=== PATIENT | male | born 1970 | race Caucasian/White ===

== ENCOUNTER → 2017-10-15 | Outpatient (CLI) | payer OTHER ==
[2017-10-15 16:38] LABS: HCT 42.4 % (39.0-53.0); HGB 14.9 gm/dL (13.0-17.5); MCHC 35.1 g/dL (31.0-37.0); MCV 96.9 fL (80.0-100.0); Mean Platelet Volume 7.2; Platelet Count 144 k/uL (150-450); RBC 4.38 m/uL (4.30-5.90); RDW 13.5 % (11.5-15.5)
[2017-10-15 16:47] LABS: ALT 45 U/L (21-72); AST 38 U/L (17-59); Albumin 4.2 g/dL (3.5-5.0); Alkaline Phosphatase 53 U/L (38-126); Anion Gap 8 mmol/L; Blood Urea Nitrogen 17 mg/dL (9-20); Carbon Dioxide 27 mmol/L (22-30); Chloride 106 mmol/L (98-107); Glucose 112 mg/dL (74-99); Potassium 4.2 mmol/L (3.5-5.1); Sodium 141 mmol/L (137-145); Total Bilirubin 0.8 mg/dL (0.2-1.3); Total Protein 7.2 g/dL (6.3-8.2)
[2017-10-16 02:46] LABS: Hemoglobin A1C 7.4 % (4.0-6.0)
== END | disposition home or self-care (01) ==
LOC: LABWHC1 15:38
PROVIDERS: ATTEND Thoracic Surgery (Cardiothoracic Vascular Surgery)
DX: E13.621 Other specified diabetes mellitus with foot ulcer (principal)
CPT/HCPCS: 36415; 80053; 83036; 84134; 85027

== ENCOUNTER → 2018-01-07 | Outpatient (CLI) | payer OTHER ==
--- NOTE | 2018-01-13 10:17 | P.ARTDOP ---
Arterial Doppler LOWER EXTREMITY ARTERIAL DOPPLER: DATE OF SERVICE: 01/07/2018 Reason for study: Left foot ulcer. Doppler waveforms: Multiphasic bilaterally throughout. Pulse volume recording: Blunted bilaterally throughout. Pressure gradients: None except at the left foot. Ankle-brachial indices: Greater than 1 bilaterally. Toe pressures: 108 on the right, 76 on the left Impression: Normal arterial Doppler except of the left foot. Localized occlusive process is unlikely. Could be vasospastic phenomenon. Clinical correlation recommended..
== END | disposition home or self-care (01) ==
LOC: RADUSWWP 13:38
PROVIDERS: ATTEND Thoracic Surgery (Cardiothoracic Vascular Surgery)
DX: R93.7 Abnormal findings on diagnostic imaging of other parts of musculoskeletal system (principal)
CPT/HCPCS: 93923

== ENCOUNTER → 2021-11-06 | Outpatient (CLI) | payer OTHER ==
[2021-11-06 22:26] LABS: Basophils # (A) 0.07 X 10*3/uL (0.00-0.10); Eosinophils # (A) 0.08 X 10*3/uL (0.04-0.35); Eosinophils % (A) 1.1 %; HCT 45.9 % (39.6-50.0); HGB 15.1 g/dL (13.0-17.0); Immature Grans, Automated 0.4 %; Lymphocytes # (A) 0.84 X 10*3/uL (0.90-5.00); Lymphocytes % (A) 11.8 %; MCH 33.3 pg (27.0-32.0); MCHC 32.9 g/dL (32.0-37.0); MCV 101.1 fL (80.0-97.0); Mean Platelet Volume 10.1 fL (9.5-12.2); Monocytes # (A) 0.71 X 10*3/uL (0.20-1.00); NRBC Per 100 WBC 0 /100 WBCS (0.0-0.0); Neutrophils # (A) 5.36 X 10*3/uL (1.80-7.70); Neutrophils % (A) 75.7 %; Platelet Count 151 X 10*3/uL (140-440); RBC 4.54 X 10*6/uL (4.40-5.60); RDW 13.8 % (11.5-14.5); WBC 7.09 X 10*3/uL (4.50-10.00)
== END | disposition home or self-care (01) ==
LOC: LABPAT 15:40
PROVIDERS: ATTEND Surgery
DX: Z01.812 Encounter for preprocedural laboratory examination (principal); K43.2 Incisional hernia without obstruction or gangrene
CPT/HCPCS: 85025; 93005

== ENCOUNTER 2021-11-14 07:37 | Day surgery (SDC) | payer OTHER ==
[2021-11-09 15:10] VITALS: BMI 32.5
[~2021-11-14 07:37] MED LIST: ACETAMINOPHEN TAB 500 MG TAB PO PRN; DEXAMETHASONE SOD PHOSPHATE 4 MG/ML 1 ML VIAL IV ONE; HEPARIN SODIUM,PORCINE/PF 5,000 UNIT/0.5 ML SYRINGE SQ PRN; HYDROmorphone 0.5 MG/0.5 ML SYRINGE IVP PRN; LACTATED RINGERS 1,000 ML IV SCH; ONDANSETRON 4 MG/2 ML VIAL IVP ONE
[2021-11-14 08:26] VITALS: TEMP 97.7
[2021-11-14] MEDS ORDERED: MIDAZOLAM 2 MG/2 ML VIAL IVP ONE ×3 (08:52→09:08)
[2021-11-14] MEDS ORDERED: ONDANSETRON 4 MG/2 ML VIAL IVP ONE (08:59)
[2021-11-14 09:01] LABS: Glucose,Whole Blood 120 mg/dL (70-110)
[2021-11-14] MEDS ORDERED: fentaNYL (PF) 50 MCG/ML 2 ML AMP IVP ONE (09:08)
--- NOTE | 2021-11-14 09:20 | P.ANPRN ---
Procedure Note - Anesthesia - Nerve Block Performed Bilateral Erector Spinae Single Time Out Performed: Yes Date of Procedure: 11/14/21 Procedure Start Time: : Procedure Stop Time: : Location of Patient: PreOp Indication: Requested by Surgeon Specifically requested for management of pain by DrJenniffer: Juan M Coy Sedation Type: Sedate with meaningful contact maintained Preparation: Sterile Prep Position: Prone Needle Types: Pajunk Needle Gauge: 21 Ultrasound used to visualize needle placement: Yes Ultrasound used to observe medication spread: Yes Injectate: 0.5% Ropivacaine (see comment for volume) (15 ml +lidocain 1 % with epi 10 ml per side) Blood Aspirated: No Pain Paresthesia on Injection Noted: No Resistance on Injection: Normal Image Stored and Saved: Yes Events: Uneventful and Well Tolerated
[2021-11-14 09:26] VITALS: RESP 18
--- NOTE | 2021-11-14 09:33 | P.GSHP ---
History of Present Illness H&P Date: 11/14/21 Chief Complaint: Ventral hernia This a 50-year-old male assaulted ventral hernia located above the umbilicus. He presents today for laparoscopic robotic-assisted repair. Past Medical History Past Medical History: Diabetes Mellitus, GERD/Reflux, Hypertension Additional Past Medical History / Comment(s): RENAL DECLINE. NEUROPATHY History of Any Multi-Drug Resistant Organisms: None Reported Past Surgical History: No Surgical Hx Reported Additional Past Anesthesia/Blood Transfusion Reaction / Comment(s): PT HAS NEVER RECEIVED ANESTHESIA. Smoking Status: Current every day smoker - Past Family History Mother Family Medical History: Diabetes Mellitus Father Family Medical History: Cancer Medications and Allergies Home Medications Medication Instructions Recorded Confirmed Type Famotidine 20 mg PO BID 10/15/17 11/09/21 History metFORMIN HCL [Glucophage] 1,000 mg PO BID 12/30/17 11/09/21 History Empagliflozin [Jardiance] 25 mg PO DAILY 11/09/21 11/09/21 History Ergocalciferol [Vitamin D2 (1250 1,250 mcg PO MO 11/09/21 11/09/21 History Mcg = 55140 Iu)] Glimepiride [Amaryl] 1 mg PO AC-BRKFST 11/09/21 11/09/21 History HYDROcodone/APAP 7.5-325MG [[place] 1 tab PO BID PRN 11/09/21 11/09/21 History 7.5-325] Pioglitazone [Actos] 15 mg PO DAILY 11/09/21 11/09/21 History Pregabalin 200 mg PO TID 11/09/21 11/09/21 History Sevelamer [Renvela] 800 mg PO DAILY 11/09/21 11/09/21 History Simvastatin [Zocor] 20 mg PO HS 11/09/21 11/09/21 History allopurinoL [Zyloprim] 100 mg PO DAILY 11/09/21 11/09/21 History lisinopriL [Zestril] 20 mg PO DAILY 11/09/21 11/09/21 History sitaGLIPtin [Januvia] 100 mg PO DAILY 11/09/21 11/09/21 History Allergies Allergy/AdvReac Type Severity Reaction Status Date / Time No Known Allergies Allergy Verified 11/14/21 08:20 Surgical - Exam Vital Signs Temp Pulse Resp BP Pulse Ox 97.7 F 90 20 162/70 97 11/14/21 08:25 11/14/21 08:25 11/14/21 08:25 11/14/21 08:25 11/14/21 08:25 - General well developed, well nourished, no distress - Eyes PERRL - ENT normal pinna - Neck no masses - Respiratory normal expansion - Cardiovascular Rhythm: regular - Abdomen 4 cm ventral hernia located above the umbilicus Abdomen: soft, non tender Results - Labs Abnormal Lab Results - Last 24 Hours (Table) 11/14/21 Range/Units 08:51 POC Glucose (mg/dL) 120 H (70-110) mg/dL Assessment and Plan Assessment: Ventral hernia. We'll perform laparoscopic robotic-assisted repair.
[2021-11-14] MEDS ORDERED: PROPOFOL 10 MG/ML 20 ML VIAL IV ONE (09:48)
[2021-11-14] MEDS ORDERED: KETOROLAC 15 MG/ML 1 ML VIAL ONE (09:48)
[2021-11-14] MEDS ORDERED: MIDAZOLAM 2 MG/2 ML VIAL ONE (09:48)
[2021-11-14] MEDS ORDERED: ROPIVACAINE 5 MG/ML 30 ML VIAL ONE (09:48)
[2021-11-14] MEDS ORDERED: LIDOCAINE 2% INJ 20 MG/ML (2 ML VIAL) ONE (09:48)
[2021-11-14] MEDS ORDERED: NEOSTIGMINE 1 MG/ML 10 ML VIAL ONE (09:48)
[2021-11-14] MEDS ORDERED: GLYCOPYRROLATE 0.2 MG/ML 2 ML VIAL ONE (09:48)
[2021-11-14] MEDS ORDERED: HYDROmorphone (PF) 1 MG/ML ONE (09:48)
[2021-11-14] MEDS ORDERED: SUCCINYLCHOLINE CHLORIDE VIAL 200 MG/10 ML VIAL IV ONE (09:48)
[2021-11-14] MEDS ORDERED: ROCURONIUM 10 MG/ML (5 ML VIAL) IV ONE (09:48)
[2021-11-14] MEDS ORDERED: KETAMINE 10 MG/ML 20 ML VIAL ONE (09:48)
[2021-11-14] MEDS ORDERED: LIDOCAINE 1%-EPI 1:100,000 20 ML VIAL ONE (09:48)
[2021-11-14] MEDS ORDERED: fentaNYL (PF) 50 MCG/ML 2 ML AMP ONE (09:48)
[2021-11-14] MEDS ORDERED: BUPIVACAIN-EPI 0.25%-1:200,000 30 ML VIAL SQ ONE ×2 (10:13→10:17)
[2021-11-14] MEDS ORDERED: LACTATED RINGERS 1,000 ML IV ONE (10:31)
--- NOTE | 2021-11-14 11:10 | P.OP ---
Date of Procedure: 11/14/21 Preoperative Diagnosis: Incarcerated ventral hernia Postoperative Diagnosis: Incarcerated ventral hernia Procedure(s) Performed: Laparoscopic robotic-assisted repair of incarcerated ventral hernia Partial omentectomy Transversus abdominis plane block Anesthesia: DELONTE Surgeon: Juan M Coy Estimated Blood Loss (ml): 5 Pathology: other (Omentum) Condition: stable Disposition: PACU Description of Procedure: RobThe patient was placed on the operating table in the supine position. He received general anesthesia. His abdomen was prepped and draped usual fashion. Using a 5 mm optical trocar under direct visualization the peritoneal cavity was entered in the left upper quadrant. The abdomen was then insufflated. The laparoscope was placed back into the perineal cavity. Next a 8 mm robotic trocar was placed in the left lower quadrant and a 12 mm robotic trocar was placed in the left lateral position. The original 5 mm trocar was exchanged for a 8 mm robotic trocar. The patient's placed in the left side up position. A four-quadrant transversus abdominis plane block was performed using 1% local Xylocaine. And the patient was docked the robot. The ventral hernia was visualized. Using hook cautery the peritoneum over the umbilical hernia was excised. Incarcerated omentum was transected and sent to pathology. The fascial opening was repaired using 0V LOC suture. Next a piece of 11 cm round ventral light ST mesh was placed into the. Cavity and secured with 2 OV lock suture. The patient was undocked the robot. The needles were retrieved. The fascia of the 12 mm trocar site was closed with 0 Ethibond suture. Skin was closed int errupted 3-0 Monocryl suture. Dermabond dressings was applied. Patient top procedure well and was sent to recovery room stable condition.
[2021-11-14 12:01] VITALS: BP 145/80; PULSE 79
== END 2021-11-14 12:54 | disposition home or self-care (01) ==
LOC: OR 07:37
PROVIDERS: ATTEND Surgery
DX: K43.6 Other and unspecified ventral hernia with obstruction, without gangrene (principal); K21.9 Gastro-esophageal reflux disease without esophagitis; E11.40 Type 2 diabetes mellitus with diabetic neuropathy, unspecified; I10 Essential (primary) hypertension; N28.9 Disorder of kidney and ureter, unspecified; F17.210 Nicotine dependence, cigarettes, uncomplicated; Z83.3 Family history of diabetes mellitus; Z80.9 Family history of malignant neoplasm, unspecified; Z79.84 Long term (current) use of oral hypoglycemic drugs; Z79.899 Other long term (current) drug therapy; E78.5 Hyperlipidemia, unspecified
CPT/HCPCS: 64999; 86900; 86901; 88305; 86850; 49653; C1781; J2250; J0330; J2710; J0690; J2405; J3010; J1170; J2795; J1885; J2704; J1644; J2001

== ENCOUNTER 2022-07-21 15:22 | Emergency (ER) | payer OTHER ==
[2022-07-21 15:35] VITALS: TEMP 97.5
[2022-07-21] MEDS ORDERED: CEPHALEXIN 500MG STARTER PACK 4 CAP BTL PO STA (16:34)
[2022-07-21] MEDS ORDERED: SULFAMETH-TMP DS STARTER PACK 2 TAB BTL PO STA (16:34)
--- NOTE | 2022-07-21 16:48 | ED ---
Wound/Laceration HPI - General Chief Complaint: Recheck/Abnormal Lab/Rx Stated Complaint: post surgery/ open wound Time Seen by Provider: 07/21/22 16:00 Source: patient, RN notes reviewed Mode of arrival: ambulatory Limitations: no limitations - History of Present Illness Initial Comments: This is a 51-year-old male who presents to the emergency department for problems with his surgical site. Patient had open repair of an incarcerated hernia with Dr. Coy on 07/01. 3 days ago, he had the griselda taken out. States that since then, the bottom of the incision has started to open up. He had minor bleeding initially which has since resolved. He is worried about infection because of his diabetic history. He also requests a new abdominal binder b ecause of his being covered in blood. Denies any discomfort associated with the incision opening up. Denies any fevers, chills, sore throat, cough, dyspnea, chest pain, palpitations, abdominal pain, nausea, vomiting, diarrhea, back pain, or headaches. - Related Data Home Medications Medication Instructions Recorded Confirmed metFORMIN HCL [Glucophage] 1,000 mg PO BID 12/30/17 07/01/22 Empagliflozin [Jardiance] 25 mg PO DAILY 11/09/21 06/28/22 Glimepiride [Amaryl] 1 mg PO AC-BRKFST 11/09/21 07/01/22 HYDROcodone/APAP 7.5-325MG [[place] 1 tab PO BID PRN 11/09/21 07/01/22 7.5-325] Pregabalin 200 mg PO TID 11/09/21 07/01/22 Simvastatin [Zocor] 20 mg PO HS 11/09/21 07/01/22 lisinopriL [Zestril] 20 mg PO DAILY 11/09/21 07/01/22 sitaGLIPtin [Januvia] 100 mg PO DAILY 11/09/21 07/01/22 Famotidine 20 mg PO DAILY 07/01/22 07/01/22 Furosemide [Lasix] 20 mg PO DAILY 07/01/22 07/01/22 Pioglitazone [Actos] 15 mg PO DAILY 07/01/22 07/01/22 Sevelamer [Renvela] 800 mg PO DAILY 07/01/22 07/01/22 Terbinafine [LamISIL] 250 mg PO DAILY 07/01/22 07/01/22 Previous Rx's Medication Instructions Recorded Acetaminophen Tab [Tylenol] 650 mg PO Q6H #30 tab 07/01/22 Docusate [Colace] 100 mg PO BID #20 capsule 07/01/22 HYDROcodone/APAP 5-325MG [[place] 1 tab PO Q6HR PRN #10 tab 07/01/22 5-325] oxyCODONE HCL [OxyIR] 5 mg PO Q6H PRN 3 Days #10 tab 07/01/22 Cephalexin [Keflex] 500 mg PO Q12HR 7 Days #14 cap 07/21/22 Sulfamethox-Tmp 800-160Mg [Bactrim 1 tab PO Q12HR 7 Days #14 tab 07/21/22 DS 800-160 mg] Allergies Allergy/AdvReac Type Severity Reaction Status Date / Time No Known Allergies Allergy Verified 07/21/22 15:35 Review of Systems ROS Statement: Those systems with pertinent positive or pertinent negative responses have been documented in the HPI. ROS Other: All systems not noted in ROS Statement are negative. Past Medical History Past Medical History: Diabetes Mellitus, Hyperlipidemia, Hypertension Additional Past Medical History / Comment(s): STATES SORE ON THE BOTTOM OF LEFT FOOT. History of Any Multi-Drug Resistant Organisms: None Reported Past Surgical History: Hernia Repair Past Anesthesia/Blood Transfusion Reactions: No Reported Reaction Additional Past Anesthesia/Blood Transfusion Reaction / Comment(s): PT HAS NEVER RECEIVED ANESTHESIA. Past Psychological History: Anxiety Smoking Status: Current every day smoker Past Alcohol Use History: Occasional Past Drug Use History: None Reported - Past Family History Mother Family Medical History: Diabetes Mellitus Father Family Medical History: Cancer General Exam Limitations: no limitations General appearance: alert, in no apparent distress Head exam: Present: atraumatic, normocephalic, normal inspection Respiratory exam: Present: normal lung sounds bilaterally. Absent: respiratory distress, wheezes, rales, rhonchi, stridor Cardiovascular Exam: Present: regular rate, normal rhythm, normal heart sounds. Absent: systolic murmur, diastolic murmur, rubs, gallop, clicks GI/Abdominal exam: Present: other (The bottom 4 cm of the abdominal incision has started to open up and is about 2-3 cm wide. The incision itself is healing well from the inside out. There is no active bleeding or drainage.) Neurological exam: Present: alert, oriented X3, CN II-XII intact Psychiatric exam: Present: normal affect, normal mood Course Vital Signs 07/21/22 15:32 Temperature 97.5 F L Pulse Rate 82 Respiratory 20 Rate Blood Pressure 163/75 O2 Sat by Pulse 99 Oximetry Medical Decision Making - Medical Decision Making This is a 51-year-old male who presents to the emergency department for problems with his surgical incision. Was pt. sent in by a medical professional or institution? @ -No Did you speak to anyone other than the patient for history? @ -His Did you review nursing and triage notes? @ -Yes, and I agree, it is accurate with regards to the patient's symptoms. Were old charts reviewed? @ -No Differential Diagnosis? @ -Not applicable What testing was considered but not performed? (CT, X-rays, U/S, labs)? Why? @ -None What meds were considered but not given? Why? @ -None Did you discuss the management of the patient with other professionals? @ -No Did you reconcile home meds? @ -No Was smoking cessation discussed for >3mins.? @ -No Was critical care preformed (if so, how long)? @ -No Were there social determinants of health that impacted care today? How? (Homelessness, low income, unemployed, alcoholism, drug addiction, transportation, low edu. Level, literacy, decrease access to med. care, retirement, rehab)? @ -No Was there de-escalation of care discussed even if they declined? (Discuss DNR or withdrawal of care, Hospice)? @ -No What co-morbidities impacted this encounter? (DM, HTN, Smoking, COPD, CAD, Cancer, CVA, Hep., AIDS, mental health diagnosis, sleep apnea, morbid obesity)? @ -Diabetes, morbid obesity Was patient admitted / discharged? @ -Discharged. On physical examination, the bottom of his incision had started to open up. This appeared to be well-healing and there was no evidence of surrounding infection. Discussed with the patient that reclosing the incision with sutures, exofin, or griselda, could cause a risk of closing an infection inside of the incision, leading to additional problems. We had planned on doing wet to dry dressings, however the patient was concerned about being able to change this himself and declined. We then decided to apply Steri-Strips over the incision. This was not completely approximated, and a small gap was left open to prevent the risk of trapping an infection. Prescription for Keflex provided per the patient's request for prophylactic management for any potential infection. He was otherwise advised to contact Dr. Coy's office first thing tomorrow morning for a follow-up appointment and further recommendations. Undiagnosed new problem with uncertain prognosis? @ -None Drug Therapy requiring intensive monitoring for toxicity (Heparin, Nitro, Insulin, Cardizem)? @ -None Were any procedures done? @ -None Diagnosis/symptom? @ -Disruption of surgical incision Acute, or Chronic, or Acute on Chronic? @ -Acute Uncomplicated (without systemic symptoms) or Complicated (systemic symptoms)? @ -Uncomplicated Side effects of treatment? @ -None Exacerbation, Progression, or Severe Exacerbation] @ -Not applicable Poses a threat to life or bodily function? @ -No Return precautions reviewed in depth, the patient is instructed to return to the emergency department with any new, worsening, or concerning symptoms. Patient verbalized understanding. This case was discussed in detail with the attending ED physician, Dr. Judd. Presentation, findings, and treatment plan discussed in detail as well. Disposition Clinical Impression: Disruption of external operation (surgical) wound Disposition: HOME SELF-CARE Instructions (If sedation given, give patient instructions): Abdominal Binder (ED) Additional Instructions: Return to the emergency department with any new, worsening, or concerning sympt oms. Take the antibiotics as prescribed for 7 days. You can change the Steri- Strips every couple of days. If they fall off, you can replace them sooner. Keep the area with Steri-Strips covered with gauze or another bandage. Contact Dr. Coy's office first thing tomorrow morning for a sooner follow up appointment. Is patient prescribed a controlled substance at d/c from ED?: No Referrals: Mt Hooper MD [Primary Care Provider] - 1-2 days Juan M Coy MD [STAFF PHYSICIAN] - 1-2 days
[2022-07-21 17:42] VITALS: BP 151/88; PULSE 77; RESP 18
== END 2022-07-21 17:35 | disposition home or self-care (01) ==
LOC: EC 15:22
DX: T81.31XA Disruption of external operation (surgical) wound, not elsewhere classified, initial encounter (principal); I10 Essential (primary) hypertension; E11.9 Type 2 diabetes mellitus without complications; E78.5 Hyperlipidemia, unspecified; F41.9 Anxiety disorder, unspecified; F17.200 Nicotine dependence, unspecified, uncomplicated; Z79.84 Long term (current) use of oral hypoglycemic drugs; Z79.899 Other long term (current) drug therapy
CPT/HCPCS: 99282

== ENCOUNTER 2022-10-01 09:07 | Inpatient (IN) | payer OTHER ==
[2022-10-01] MEDS ORDERED: NALOXONE 0.4 MG/ML 1 ML VIAL IV PRN (11:42)
--- NOTE | 2022-10-01 11:43 | ED ---
General Adult HPI - General Chief complaint: Wound/Laceration Stated complaint: post op Time Seen by Provider: 10/01/22 09:19 Source: patient, EMS, RN notes reviewed, old records reviewed Mode of arrival: EMS Limitations: no limitations - History of Present Illness Initial comments: 51-year-old male presenting for abdominal distention and fluid drainage from his anterior abdominal surgical incision. Patient had a hernia repaired in early June. He had a wound dehiscence but had been doing quite well. Apparently the patient had been seen at outside hospital and was diagnosed with ascites and had fluid drained from his abdomen. He states that his abdomen has continued to enlarge. He has no fever. No vomiting. - Related Data Home Medications Medication Instructions Recorded Confirmed Empagliflozin [Jardiance] 25 mg PO DAILY 11/09/21 10/01/22 HYDROcodone/APAP 7.5-325MG [[place] 1 tab PO TID 11/09/21 10/01/22 7.5-325] Pregabalin 200 mg PO TID 11/09/21 10/01/22 Simvastatin [Zocor] 20 mg PO HS 11/09/21 10/01/22 lisinopriL [Zestril] 20 mg PO DAILY 11/09/21 10/01/22 sitaGLIPtin [Januvia] 100 mg PO DAILY 11/09/21 10/01/22 Famotidine 20 mg PO BID 07/01/22 10/01/22 Furosemide [Lasix] 20 mg PO DAILY 07/01/22 10/01/22 Pioglitazone [Actos] 15 mg PO DAILY 07/01/22 10/01/22 Sevelamer [Renvela] 800 mg PO DAILY 07/01/22 10/01/22 Terbinafine [LamISIL] 250 mg PO DAILY 07/01/22 10/01/22 Ergocalciferol [Vitamin D2 (1250 1,250 mcg PO Q7D 10/01/22 10/01/22 Mcg = 35929 Iu)] allopurinoL 100 mg PO DAILY 10/01/22 10/01/22 metFORMIN HCL 1,000 mg PO BID 10/01/22 10/01/22 Allergies Allergy/AdvReac Type Severity Reaction Status Date / Time No Known Allergies Allergy Verified 10/01/22 11:23 Review of Systems ROS Statement: Those systems with pertinent positive or pertinent negative responses have been documented in the HPI. ROS Other: All systems not noted in ROS Statement are negative. Past Medical History Past Medical History: Diabetes Mellitus, Hyperlipidemia, Hypertension Additional Past Medical History / Comment(s): STATES SORE ON THE BOTTOM OF LEFT FOOT. History of Any Multi-Drug Resistant Organisms: None Reported Past Surgical History: Hernia Repair Past Anesthesia/Blood Transfusion Reactions: No Reported Reaction Additional Past Anesthesia/Blood Transfusion Reaction / Comment(s): PT HAS NEVER RECEIVED ANESTHESIA. Past Psychological History: Anxiety Smoking Status: Current every day smoker Past Alcohol Use History: Occasional Past Drug Use History: None Reported - Past Family History Mother Family Medical History: Diabetes Mellitus Father Family Medical History: Cancer General Exam Limitations: no limitations General appearance: alert, in no apparent distress Head exam: Present: atraumatic, normocephalic Eye exam: Present: normal appearance, PERRL ENT exam: Present: normal exam Neck exam: Present: normal inspection. Absent: tenderness, meningismus Respiratory exam: Present: normal lung sounds bilaterally. Absent: respiratory distress, wheezes Cardiovascular Exam: Present: regular rate, normal rhythm GI/Abdominal exam: Present: distended (Positive fluid wave), other (Patient has incisional dehiscence midline abdominal scar. There is some granulation tissue and clear fluid draining. No purulence. No erythema.). Absent: tenderness Course Vital Signs 10/01/22 09:08 Temperature 97.5 F L Pulse Rate 84 Respiratory 18 Rate Blood Pressure 150/77 O2 Sat by Pulse 95 Oximetry Medical Decision Making - Medical Decision Making Was pt. sent in by a medical professional or institution (, PA, PASTORAL ASSISTANT, urgent care, hospital, or assisted...) When possible be specific @ -[No] Did you speak to anyone other than the patient for history (EMS, parent, family, police, friend...)? What history was obtained from this source @ -[Patient's family and paramedics] Did you review nursing and triage notes (agree or disagree)? Why? @ -[I reviewed and agree with nursing and triage notes] Were old charts reviewed (outside hosp., previous admission, EMS record, old EKG, old radiological studies, urgent care reports/EKG's, assisted records)? Report findings @ -[No old charts were reviewed] Differential Diagnosis (chest pain, altered mental status, abdominal pain women, abdominal pain men, vaginal bleeding, weakness, fever, dyspnea, syncope, headache, dizziness, GI bleed, back pain, seizure, CVA, palpatations, mental health, musculoskeletal)? @ -[Cellulitis, purulent infection, ascites EKG interpreted by me (3pts min.). @ -[As above] X-rays interpreted by me (1pt min.). @ -[None done] CT interpreted by me (1pt min.). @ -[None done] U/S interpreted by me (1pt. min.). @ -[None done] What testing was considered but not performed or refused? (CT, X-rays, U/S, labs)? Why? @ -[None] What meds were considered but not given or refused? Why? @ -[None] Did you discuss the management of the patient with other professionals (professionals i.e. , PA, PASTORAL ASSISTANT, lab, RT, psych nurse, sr. social media & mobile manager, powder mill operator, teacher, disabilities services officer, sample case porter)? Give summary @ -[Case discussed with Dr. Hooper, will admit Was smoking cessation discussed for >3mins.? @ -[No] Was critical care preformed (if so, how long)? @ -[No] Were there social determinants of health that impacted care today? How? (Homelessness, low income, unemployed, alcoholism, drug addiction, transportation, low edu. Level, literacy, decrease access to med. care, alf, rehab)? @ -[No] Was there de-escalation of care discussed even if they declined (Discuss DNR or withdrawal of care, Hospice)? DNR status @ -[No] What co-morbidities impacted this encounter? (DM, HTN, Smoking, COPD, CAD, Cancer, CVA, ARF, Chemo, Hep., AIDS, mental health diagnosis, sleep apnea, morbid obesity)? @ -[None] Was patient admitted / discharged? Hospital course, mention meds given and route, prescriptions, significant lab abnormalities, going to OR and other pertinent info. @ -[Patient admitted with abdominal ascites and anterior abdominal wound. I do not see signs of current infection. Laboratory studies will be obtained, results are pending. Undiagnosed new problem with uncertain prognosis? @ -[No] Drug Therapy requiring intensive monitoring for toxicity (Heparin, Nitro, Insulin, Cardizem)? @ -[No] Were any procedures done? @ -[No] Diagnosis/symptom? @ Draining surgical wound, abdominal ascites Acute, or Chronic, or Acute on Chronic? @ Acute on chronic Uncomplicated (without systemic symptoms) or Complicated (systemic symptoms)? @ -[default] Side effects of treatment? @ -[No] Exacerbation, Progression, or Severe Exacerbation? @ -[No] Poses a threat to life or bodily function? How? (Chest pain, [place], PA, pneumonia, PE, COPD, DKA, ARF, appy, cholecystitis, CVA, Diverticulitis, Homicidal, Suicidal, threat to staff... and all critical care pts) @ -Low risk Disposition Clinical Impression: External incisional dehiscence, Ascites Disposition: ADMITTED IP TO THIS [facility] Condition: Stable Is patient prescribed a controlled substance at d/c from ED?: No Referrals: Mt Hooper MD [Primary Care Provider] - 1-2 days Time of Disposition: 11:43
[2022-10-01 12:12] LABS: Basophils % (A) 0 %; Eosinophils # (A) 0.1 k/uL (0-0.7); Eosinophils % (A) 2 %; HCT 42.8 % (39.0-53.0); Lymphocytes # (A) 0.8 k/uL (1.0-4.8); Lymphocytes % (A) 14 %; MCH 32.5 pg (25.0-35.0); MCHC 32.8 g/dL (31.0-37.0); MCV 99.2 fL (80.0-100.0); Mean Platelet Volume 8.3; Monocytes # (A) 0.6 k/uL (0-1.0); Monocytes % (A) 9 %; Neutrophils # (A) 4.3 k/uL (1.3-7.7); Neutrophils % (A) 72 %; Platelet Count 193 k/uL (150-450); RBC 4.31 m/uL (4.30-5.90); RDW 13.1 % (11.5-15.5)
[2022-10-01 12:13] LABS: ALT 24 U/L (4-49); AST 27 U/L (17-59); African American GFR (CKD) >90 (>60 ml/min/1.73 sqM); Albumin 3.4 g/dL (3.5-5.0); Alkaline Phosphatase 80 U/L (38-126); Anion Gap 6 mmol/L; Blood Urea Nitrogen 13 mg/dL (9-20); Calcium 8.6 mg/dL (8.4-10.2); Carbon Dioxide 25 mmol/L (22-30); Chloride 100 mmol/L (98-107); Glucose 154 mg/dL (74-99); Magnesium 2.2 mg/dL (1.6-2.3); Non-African American GFR(CKD) >90 (>60 ml/min/1.73 sqM); Potassium 4.7 mmol/L (3.5-5.1); Sodium 131 mmol/L (137-145); Total Bilirubin 0.3 mg/dL (0.2-1.3); Total Protein 6.1 g/dL (6.3-8.2)
[2022-10-01 12:27] LABS: INR 0.9 (<1.2); Partial Thromboplastin Time 22.9 sec (22.0-30.0); Prothrombin Time 9.9 sec (9.0-12.0)
[2022-10-01] MEDS: HYDROcodone/APAP 7.5-325MG 1 EACH TAB PO SCH ×2 (15:37→21:23)
[2022-10-01] MEDS: PREGABALIN 100 MG CAP PO SCH ×2 (15:40→21:23)
[2022-10-01 17:16] LABS: Glucose,Whole Blood 122 mg/dL (70-110)
[2022-10-01] MEDS: PIPERACILLIN-TAZOBACTAM 3.375 GM in SODIUM CHLORIDE 0.9% 100 ML IVPB SCH (17:31)
[2022-10-01] MEDS: metFORMIN 500 MG TAB PO SCH (21:23)
[2022-10-01] MEDS: FAMOTIDINE 20 MG TAB PO SCH (21:23)
[2022-10-01] MEDS: ATORVASTATIN 10 MG TAB PO SCH (21:23)
[2022-10-02] MEDS: PIPERACILLIN-TAZOBACTAM 3.375 GM in SODIUM CHLORIDE 0.9% 100 ML IVPB SCH ×3 (00:33→16:18)
[2022-10-02 05:54] LABS: Glucose,Whole Blood 125 mg/dL (70-110)
[2022-10-02] MEDS: allopurinoL 100 MG TAB PO SCH (08:21)
[2022-10-02] MEDS: LINAGLIPTIN 5 MG TABLET PO SCH (08:21)
[2022-10-02] MEDS: SEVELAMER 800 MG TAB PO SCH (08:21)
[2022-10-02] MEDS: DAPAGLIFLOZIN PROPANEDIOL 10 MG TABLET PO SCH (08:21)
[2022-10-02] MEDS: lisinopriL 20 MG TAB PO SCH (08:21)
[2022-10-02] MEDS: FUROSEMIDE 20 MG TAB PO SCH (08:21)
[2022-10-02] MEDS: PREGABALIN 100 MG CAP PO SCH ×3 (08:21→20:13)
[2022-10-02] MEDS: FAMOTIDINE 20 MG TAB PO SCH ×2 (08:21→20:13)
[2022-10-02] MEDS: metFORMIN 500 MG TAB PO SCH ×2 (08:22→20:13)
[2022-10-02] MEDS: PIOGLITAZONE 15 MG TAB PO SCH (08:22)
[2022-10-02] MEDS: HYDROcodone/APAP 7.5-325MG 1 EACH TAB PO SCH ×3 (08:22→21:27)
--- NOTE | 2022-10-02 09:26 | US ---
EXAMINATION TYPE: US abdomen complete DATE OF EXAM: 10/02/2022 COMPARISON: NONE CLINICAL INDICATION: Male, 51 years old with history of cirrhosis; Patient just had a hernia surgery in June with wound just reopened. TECHNIQUE: Multiple sonographic images of the abdomen are obtained. FINDINGS: EXAM MEASUREMENTS: Liver Length: 19.2 cm Gallbladder Wall: 0.3 cm CBD: 0.3 cm Spleen: 13.1 cm Right Kidney: 12.0 x 5.9 x 5.8 cm Left Kidney: 13.5 x 4.9 x 6.1 cm Pancreas: Tail obscured by overlying bowel gas Liver: Enlarged in size. Appears coarse. Gallbladder: wnl Evidence for sonographic Hi's sign: neg CBD: wnl Spleen: Upper limits of normal in size Right Kidney: No hydronephrosis or masses seen Left Kidney: No hydronephrosis or masses seen Upper IVC: wnl Abd Aorta: Mid and distal portion not visualized due abdomen wound bandage. IMPRESSION: 1. Hepatomegaly correlate for hepatic steatosis or hepatocellular disease including hepatitis.
[2022-10-02 11:02] LABS: Glucose,Whole Blood 307 mg/dL (70-110)
[2022-10-02] MEDS: IOPAMIDOL CONTRAST (ORAL USE) VIAL PO PRN ×2 (14:11→15:11)
--- NOTE | 2022-10-02 14:14 | HP ---
HISTORY AND PHYSICAL HISTORY OF PRESENT ILLNESS: Evaluated the patient in the emergency room on 10/01/2022. He came in with large amount of purulent drainage from his mid abdominal wound. He was diagnosed with ascites, fluid draining from his abdomen. His abdomen wound continues to be present, but appears to be improving and had IV antibiotics for multiple days through a PICC line. HOME MEDICINES: 1. Jardiance 25 daily. 2. Pregabalin 200 t.i.d. 3. Zocor 20 daily. 4. Zestril 20 daily. 5. Januvia 100 daily. 6. Famotidine 20 b.i.d. 7. Lasix 20 daily. 8. Actos 15 daily. 9. Renvela 800 daily. 10.Lamisil 250 daily. 11.Vitamin D. 12.Allopurinol 100 daily. 13.Metformin 1000 b.i.d. ALLERGIES: Negative. REVIEW OF SYSTEMS: A 14-point review of systems otherwise negative. PAST MEDICAL HISTORY: Diabetes mellitus, dyslipidemia, hypertension, repair, anxiety. FAMILY HISTORY: Mother had diabetes mellitus, father cancer. PHYSICAL EXAMINATION: CARDIOVASCULAR: S1, S2. PSYCH: Fair mood and affect, appears anxious. LUNGS: Decreased breath sounds x4. ABDOMEN: Distended, possible hernia versus cirrhosis causing a large amount of purulent drainage. He has an open wound about a half-dollar size in mid abdomen with a prior incisional wound down through the incision, about 0.5 cm wide, about 4 to 5 inches down his abdomen status post bowel repair by Dr. Coy. GI: Soft. ASSESSMENT: Incisional dehiscence, wound infection, ascites. Continue current treatment. Ultrasound of abdomen. IV antibiotics. Continue Zosyn with Infectious Disease. COPD, continue breathing treatments. Prognosis is guarded. MMODL / IJN: [id number] /
--- NOTE | 2022-10-02 16:04 | CT ---
EXAMINATION TYPE: CT abdomen pelvis wo con DATE OF EXAM: 10/02/2022 HISTORY: abdominal abscess CT DLP: 1163.4 mGycm. Automated Exposure Control for Dose Reduction was Utilized. TECHNIQUE: CT scan of the abdomen and pelvis is performed with oral but without IV contrast. COMPARISON: Ultrasound abdomen earlier today FINDINGS: Within the limitations of a non-contrast study, the following observations are made. LUNG BASES: No significant abnormality is appreciated. LIVER/GB: Liver is heterogeneously hypodense consistent with diffuse fatty infiltration. Gallbladder is contracted. No biliary dilatation. PANCREAS: No significant abnormality is seen. SPLEEN: No significant abnormality is seen. ADRENALS: No significant abnormality is seen. KIDNEYS: No renal stones or hydronephrosis is seen bilaterally. BOWEL: No significant abnormality is seen. GENITAL ORGANS: No gross abnormality seen. LYMPH NODES: No greater than 1cm abdominal or pelvic lymph nodes are appreciated. OSSEOUS STRUCTURES: No significant abnormality is seen. OTHER: [id number]-[id number] calcified plaque of the aorta extends into branch vessels. There is moderate ill-defined fluid and fat stranding throughout the anterior wall of the lower abdom en and pelvis. In the midline anterior to the lower abdomen and upper pelvis there is heterogeneous t hin-walled fluid collection measuring 11.6 cm transversely by 5.8 cm AP diameter on axial image 53 by approximate 12.7 cm craniocaudal dimension sagittal image 82. This was not seen on recent ultrasound . IMPRESSION: There is heterogeneous 12.7 cm thin-walled fluid collection in the anterior lower abdomin al/upper pelvic wall. Differential includes hematoma. Other etiologies not excluded. Targeted ultraso und follow-up can be performed to further evaluate if desired based on clinical correlation.
[2022-10-02 16:16] LABS: Glucose,Whole Blood 293 mg/dL (70-110)
[2022-10-02] MEDS ORDERED: DEXTROSE 50% SYRINGE 50 ML IVP PRN ×2 (16:23)
[2022-10-02] MEDS: INSULIN ASPART (NovoLOG) 100 UNIT/ML VIAL SQ SCH ×2 (16:37→21:28)
[2022-10-02] MEDS: ATORVASTATIN 10 MG TAB PO SCH (20:13)
[2022-10-02 20:18] LABS: Glucose,Whole Blood 162 mg/dL (70-110)
--- NOTE | 2022-10-02 20:36 | P.CONS ---
History of Present Illness - Reason for Consult Consult date: 10/02/22 - History of Present Illness Patient is a 51-year-old male with a past medical history significant for open repair of incarcerated incisional hernia and partial omonectomy that was done on 07/01/2022, patient mention he did not have healing of his abdominal incision since then and apparently did have a multiple admission to the area hospital he was he was recently admitted at [facility] with the patient did have a ascitic fluid drained from his abdominal fluid drained from his abdominal cavity at the patient subsequently was treated at their wound care center with the bed with the patient mention he did have clearing of his abdominal wound done by the physician at [facility], patient is now presenting to the ER concerning for abdominal distention and fluid drainage from his anterior abdominal surgical incision , The patient's symptom has been getting worse since the patient has been discharged from [facility] patient denies high-grade fever or any chills and no fever recorded during this hospital stay except a low-grade fever of 99 point 12:07 patient did have a normal white count kidney function has been normal enzymes are normal patient did have a abdominal ultrasound completed this morning which was hepatomegaly correlate with elevated steatosis or hepatocellular disease infectious was consulted for local wound care as well as antibiotic therapy patient main symptom remains to be nonhealing wound and drainage from it he did have mild aching pain 2-3 out of 10 having no radiation Past Medical History Past Medical History: Diabetes Mellitus, Hyperlipidemia, Hypertension Additional Past Medical History / Comment(s): STATES SORE ON THE BOTTOM OF LEFT FOOT. History of Any Multi-Drug Resistant Organisms: None Reported Past Surgical History: Hernia Repair Past Anesthesia/Blood Transfusion Reactions: No Reported Reaction Additional Past Anesthesia/Blood Transfusion Reaction / Comm: PT HAS NEVER RECEIVED ANESTHESIA. Past Psychological History: Anxiety Smoking Status: Former smoker Past Alcohol Use History: Occasional Additional Past Alcohol Use History / Comment(s): HX OF 1/2 PPD SMOKER. Past Drug Use History: None Reported - Past Family History Mother Family Medical History: Diabetes Mellitus Father Family Medical History: Cancer Medications and Allergies Home Medications Medication Instructions Recorded Confirmed Type Empagliflozin [Jardiance] 25 mg PO DAILY 11/09/21 10/01/22 History HYDROcodone/APAP 7.5-325MG [Coral 1 tab PO TID 11/09/21 10/01/22 History 7.5-325] Pregabalin 200 mg PO TID 11/09/21 10/01/22 History Simvastatin [Zocor] 20 mg PO HS 11/09/21 10/01/22 History lisinopriL [Zestril] 20 mg PO DAILY 11/09/21 10/01/22 History sitaGLIPtin [Januvia] 100 mg PO DAILY 11/09/21 10/01/22 History Famotidine 20 mg PO BID 07/01/22 10/01/22 History Furosemide [Lasix] 20 mg PO DAILY 07/01/22 10/01/22 History Pioglitazone [Actos] 15 mg PO DAILY 07/01/22 10/01/22 History Sevelamer [Renvela] 800 mg PO DAILY 07/01/22 10/01/22 History Terbinafine [LamISIL] 250 mg PO DAILY 07/01/22 10/01/22 History Ergocalciferol [Vitamin D2 (1250 1,250 mcg PO Q7D 10/01/22 10/01/22 History Mcg = [id number] Iu)] allopurinoL 100 mg PO DAILY 10/01/22 10/01/22 History metFORMIN HCL 1,000 mg PO BID 10/01/22 10/01/22 History Allergies Allergy/AdvReac Type Severity Reaction Status Date / Time No Known Allergies Allergy Verified 10/01/22 11:23 Physical Exam Vitals: Vital Signs Temp Pulse Pulse Resp BP BP Pulse Ox 10/02/22 07:10 98.8 F 85 16 116/60 96 10/02/22 01:43 99.7 F H 91 22 115/67 94 L 10/01/22 21:15 98.4 F 91 20 150/75 95 10/01/22 18:47 98.6 F 86 18 130/72 94 L 10/01/22 15:16 99 F 74 19 135/84 97 Intake and Output 10/01/22 10/02/22 10/02/22 22:59 06:59 14:59 Intake Total 100 Balance 100 Intake: Intake, IV Titration 100 Amount Piperacillin-Tazobactam 3 100 .375 gm In Sodium Chloride 0.9% 100 ml @ 25 mls/hr IVPB Q8HR [facility] Rx# :[id number] Other: # Voids 1 2 # Bowel Movements 1 Weight 102.512 kg Results CBC & Chem 7: 10/01/22 11:44 10/01/22 11:44 Labs: Abnormal Lab Results - Last 24 Hours (Table) 10/01/22 10/01/22 10/01/22 Range/Units 11:44 11:44 17:13 Lymphocytes # 0.8 L (1.0-4.8) k/uL Sodium 131 L (137-145) mmol/L Glucose 154 H (74-99) mg/dL POC Glucose (mg/dL) 122 H (70-110) mg/dL Total Protein 6.1 L (6.3-8.2) g/dL Albumin 3.4 L (3.5-5.0) g/dL 10/02/22 Range/Units 05:52 Lymphocytes # (1.0-4.8) k/uL Sodium (137-145) mmol/L Glucose (74-99) mg/dL POC Glucose (mg/dL) 125 H (70-110) mg/dL Total Protein (6.3-8.2) g/dL Albumin (3.5-5.0) g/dL Assessment and Plan Plan: 1patient with a history of open repair of incarcerated incisional hernia partial omentectomy on 07/01/2022 at the patient did have a nonhealing wound to the mid abdominal area since then and apparently did have a multiple admission to the hospital for the same problem patient did not have any fever or elevated white count however he was noticed to have some purulent drainage concerning for cellulitis/wound infection possibly from enteric gram-negative pathogen. 2we will obtain CT of abdominal pelvis with oral contrast with no evidence of any abscess. 3local wound culture to confirm antibiotic therapy. 4Zosyn 3.375 g every 8 hours to continue while waiting for the work-up to be completed We will follow on clinical condition and cultures to further adjust medication if needed Thank you for this consultation we will follow the patient along with you Time with Patient: Greater than 30
[2022-10-03] MEDS: PIPERACILLIN-TAZOBACTAM 3.375 GM in SODIUM CHLORIDE 0.9% 100 ML IVPB SCH ×3 (00:52→16:50)
[2022-10-03 05:39] LABS: Glucose,Whole Blood 172 mg/dL (70-110)
[2022-10-03] MEDS: INSULIN ASPART (NovoLOG) 100 UNIT/ML VIAL SQ SCH ×4 (06:28→21:15)
[2022-10-03] MEDS: PREGABALIN 100 MG CAP PO SCH ×3 (08:36→21:15)
[2022-10-03] MEDS: LINAGLIPTIN 5 MG TABLET PO SCH (08:37)
[2022-10-03] MEDS: allopurinoL 100 MG TAB PO SCH (08:37)
[2022-10-03] MEDS: metFORMIN 500 MG TAB PO SCH ×2 (08:37→21:15)
[2022-10-03] MEDS: FUROSEMIDE 20 MG TAB PO SCH (08:37)
[2022-10-03] MEDS: HYDROcodone/APAP 7.5-325MG 1 EACH TAB PO SCH ×3 (08:37→21:15)
[2022-10-03] MEDS: FAMOTIDINE 20 MG TAB PO SCH ×2 (08:38→21:15)
[2022-10-03] MEDS: lisinopriL 20 MG TAB PO SCH (08:42)
[2022-10-03] MEDS: PIOGLITAZONE 15 MG TAB PO SCH (09:44)
[2022-10-03] MEDS: DAPAGLIFLOZIN PROPANEDIOL 10 MG TABLET PO SCH (09:44)
[2022-10-03] MEDS: SEVELAMER 800 MG TAB PO SCH (09:44)
[2022-10-03 12:15] LABS: Glucose,Whole Blood 179 mg/dL (70-110)
--- NOTE | 2022-10-03 12:31 | CT ---
EXAMINATION TYPE: CT abdomen wo con DATE OF EXAM: 10/03/2022 COMPARISON: HISTORY: drainage tube placement verification CT DLP: 637.4 mGycm Automated exposure control for dose reduction was used. TECHNIQUE: Helical acquisition of images was performed from the lung bases through the top of iliac crest to include entire abdomen. CONTRAST: Performed without Oral Contrast and without IV contrast. FINDINGS: There is scanning is performed to assess position of the catheter which demonstrates ideal placement of the drainage catheter. Skin thickening and subcutaneous edema with an open wound as previously rep orted are stable. Visualized portions of the bowel gas are nonspecific. The bladder is distended. Hyp ertrophic changes of the spine. OTHER: None IMPRESSION: DRAINAGE CATHETER IS IN IDEAL POSITION WITH NEAR COMPLETE RESOLUTION OF FLUID CAVITY IN THE SUBCUTANE OUS TISSUES OF THE ANTERIOR ABDOMINAL WALL
--- NOTE | 2022-10-03 12:36 | US ---
ULTRASOUND GUIDED FNA AND DRAINAGE TUBE INSERTION FOR SUBCUTANEOUS ANTERIOR ABDOMINAL WALL FLUID CARLEE ECTION: CLINICAL HISTORY: Large subcutaneous anterior abdominal wall fluid collection FINDINGS: The procedure was explained to the patient. The risks, complications, benefits and alternatives were discussed and any questions were answered. Informed consent was obtained. Patient was placed supin e on the ultrasound table and prepped and draped in the usual sterile fashion. Utilizing a 25 gauge needle, 100 cc of serous blood-tinged fluid was aspirated. Using a trocar sestamibi 8.5 Fijian draina ge catheter under direct ultrasound guidance was placed in the cavity. Catheter position post procedu re. Patient was stable throughout the procedure. Pathology is pending. All elements of maximal barrier sterile technique were utilized. IMPRESSION: 1. Successful ultrasound guided FNA drainage catheter insertion into a subcutaneous anterior abdomin al wall fluid collection.
[2022-10-03 16:19] LABS: Glucose,Whole Blood 188 mg/dL (70-110)
[2022-10-03 21:07] LABS: Glucose,Whole Blood 156 mg/dL (70-110)
[2022-10-03] MEDS: ATORVASTATIN 10 MG TAB PO SCH (21:15)
--- NOTE | 2022-10-03 22:31 | P.PN ---
Subjective Progress Note Date: 10/03/22 Principal diagnosis: Abdominal wound infection Patient is a 51-year-old male with a past medical history significant for open repair of incarcerated incisional hernia and partial omonectomy that was done on 07/01/2022,, subsequently presented to hospital with nonhealing a bdominal wound drainage concerning for wound infection patient is status post IR drainage of the fluid collection along with drainage catheter placement on 10/03/2022 On today's evaluation that is 10/03/2022, patient denies having any fever and chills, patient is feeling slightly better denies having any abdominal pain or chest pain shortness breath occasional cough no vomiting or diarrhea Objective - Vital Signs Vital signs: Vital Signs Temp 98.4 F 10/03/22 07:05 Pulse 78 10/03/22 07:05 Resp 18 10/03/22 07:05 BP 135/72 10/03/22 07:05 Pulse Ox 94 L 10/03/22 07:05 FiO2 Intake & Output 10/02/22 10/03/22 10/03/22 18:59 06:59 18:59 Other: # Voids 2 3 1 - Exam GENERAL DESCRIPTION: Middle-aged male lying in bed in no distress RESPIRATORY SYSTEM: Unlabored breathing , decreased breath sounds at bases HEART: S1 S2 regular rate and rhythm , ABDOMEN: Soft , midline abdominal wound is currently dressed patient did have some distention EXTREMITIES: No edema feet - Labs CBC & Chem 7: 10/01/22 11:44 10/01/22 11:44 Labs: Abnormal Lab Results - Last 24 Hours (Table) 10/02/22 10/02/22 10/02/22 Range/Units 11:00 16:15 20:14 POC Glucose (mg/dL) 307 H 293 H 162 H (70-110) mg/dL 10/03/22 Range/Units 05:38 POC Glucose (mg/dL) 172 H (70-110) mg/dL Microbiology - Last 24 Hours (Table) 10/02/22 14:27 Gram Stain - Preliminary Abdomen Assessment and Plan (1) Abdominal wall abscess at site of surgical wound Current Visit: Yes Status: Acute Code(s): T81.49XA - INFECTION FOLLOWING A PROCEDURE, OTHER SURGICAL SITE, INIT SNOMED Code(s): 103406601 (2) External incisional dehiscence Current Visit: Yes Status: Acute Code(s): T81.31XA - DISRUPTION OF EXTERNAL OPERATION (SURGICAL) WOUND, NEC, INIT SNOMED Code(s): 685697059250781 Plan: 1patient with a history of open repair of incarcerated incisional hernia partial omentectomy on 07/01/2022 at the patient did have a nonhealing wound to the mid abdominal area since then and apparently did have a multiple admission to the hospital for the same problem patient did not have any fever or elevated white count however he was noticed to have some purulent drainage concerning for cellulitis/wound infection possibly from enteric gram-negative pathogen. 2patient did have CT of abdominal pelvis with oral contrast with evidence of fluid collection status post IR drainage 3patient to continue with Zosyn 3.375 g every 8 hours while waiting for the cultures to finalize
[2022-10-04] MEDS: PIPERACILLIN-TAZOBACTAM 3.375 GM in SODIUM CHLORIDE 0.9% 100 ML IVPB SCH ×3 (00:11→16:25)
[2022-10-04 05:56] LABS: Glucose,Whole Blood 207 mg/dL (70-110)
[2022-10-04] MEDS: INSULIN ASPART (NovoLOG) 100 UNIT/ML VIAL SQ SCH ×4 (06:19→21:02)
[2022-10-04 07:27] LABS: Basophils % (A) 0 %; Eosinophils # (A) 0.3 k/uL (0-0.7); Eosinophils % (A) 4 %; HCT 46.2 % (39.0-53.0); Lymphocytes # (A) 0.8 k/uL (1.0-4.8); Lymphocytes % (A) 12 %; MCH 32.2 pg (25.0-35.0); MCHC 32.4 g/dL (31.0-37.0); MCV 99.4 fL (80.0-100.0); Mean Platelet Volume 8.1; Monocytes # (A) 0.4 k/uL (0-1.0); Monocytes % (A) 6 %; Neutrophils # (A) 5.1 k/uL (1.3-7.7); Neutrophils % (A) 74 %; Platelet Count 199 k/uL (150-450); RBC 4.65 m/uL (4.30-5.90); RDW 13.5 % (11.5-15.5); WBC 6.9 k/uL (3.8-10.6)
[2022-10-04 07:43] LABS: ALT 35 U/L (4-49); AST 32 U/L (17-59); African American GFR (CKD) 85 (>60 ml/min/1.73 sqM); Albumin 3.6 g/dL (3.5-5.0); Albumin/Globulin Ratio 1.2; Alkaline Phosphatase 69 U/L (38-126); Anion Gap 6 mmol/L; Blood Urea Nitrogen 22 mg/dL (9-20); Calcium 9.1 mg/dL (8.4-10.2); Carbon Dioxide 25 mmol/L (22-30); Chloride 106 mmol/L (98-107); Globulin 2.9 g/dL; Glucose 191 mg/dL (74-99); Magnesium 2.3 mg/dL (1.6-2.3); Non-African American GFR(CKD) 73 (>60 ml/min/1.73 sqM); Potassium 4.5 mmol/L (3.5-5.1); Sodium 137 mmol/L (137-145); Total Bilirubin 0.4 mg/dL (0.2-1.3); Total Protein 6.5 g/dL (6.3-8.2)
[2022-10-04] MEDS: DAPAGLIFLOZIN PROPANEDIOL 10 MG TABLET PO SCH (09:00)
[2022-10-04] MEDS: allopurinoL 100 MG TAB PO SCH (09:00)
[2022-10-04] MEDS: PREGABALIN 100 MG CAP PO SCH ×3 (09:00→21:02)
[2022-10-04] MEDS: HYDROcodone/APAP 7.5-325MG 1 EACH TAB PO SCH ×3 (09:00→21:02)
[2022-10-04] MEDS: SEVELAMER 800 MG TAB PO SCH (09:00)
[2022-10-04] MEDS: metFORMIN 500 MG TAB PO SCH ×2 (09:00→21:02)
[2022-10-04] MEDS: PIOGLITAZONE 15 MG TAB PO SCH (09:00)
[2022-10-04] MEDS: FUROSEMIDE 20 MG TAB PO SCH (09:01)
[2022-10-04] MEDS: lisinopriL 20 MG TAB PO SCH (09:01)
[2022-10-04] MEDS: FAMOTIDINE 20 MG TAB PO SCH ×2 (09:01→21:02)
[2022-10-04] MEDS: LINAGLIPTIN 5 MG TABLET PO SCH (09:01)
[2022-10-04 11:28] LABS: Glucose,Whole Blood 248 mg/dL (70-110)
--- NOTE | 2022-10-04 13:50 | P.PN ---
Subjective Progress Note Date: 10/03/22 Principal diagnosis: Abdominal wall abscess External incisional dehiscence Infected ascites Type 2 diabetes mellitus uncontrolled with hyperglycemia Dyslipidemia Hypertension hypertensive cardiovascular disease Gout Obesity 10/03/2022, patient seen eval reexamined on fourth floor, patient is scheduled for interventional radiology to drain the anterior abdominal wall abscess, patient of note that presented on October 01 with large amount of purulent drainage from the anterior abdominal wound ID service has been following patient is on broad-spectrum antibiotics via PICC line is other meds active medical problem includes diabetes chest. Anemia hypertension and congestive heart failure with hypertensive heart disease Objective - Vital Signs Vital signs: Vital Signs Temp 98.4 F 10/03/22 07:05 Pulse 78 10/03/22 07:05 Resp 18 10/03/22 07:05 BP 135/72 10/03/22 07:05 Pulse Ox 94 L 10/03/22 07:05 FiO2 Intake & Output 10/02/22 10/03/22 10/03/22 18:59 06:59 18:59 Other: # Voids 2 3 1 - Constitutional General appearance: Present: average body habitus, cooperative, disheveled - EENT Eyes: Present: PERRLA ENT: Present: normal oropharynx Ears: bilateral: normal - Neck Neck: Present: normal ROM Carotids: bilateral: upstroke normal Thyroid: bilateral: normal size - Respiratory Respiratory: bilateral: CTA - Cardiovascular Rhythm: regular Heart sounds: normal: S1, S2 - Gastrointestinal General gastrointestinal: Present: normal bowel sounds, soft - Integumentary Integumentary: Present: cellulitis - Neurologic Neurologic: Present: CNII-XII intact - Musculoskeletal Musculoskeletal: Present: gait normal, generalized weakness, strength equal bilaterally - Psychiatric Psychiatric: Present: A&O x's 3, appropriate affect, intact judgment & insight - Labs CBC & Chem 7: 10/04/22 07:13 10/04/22 07:13 Labs: Abnormal Lab Results - Last 24 Hours (Table) 10/02/22 10/02/22 10/02/22 Range/Units 11:00 16:15 20:14 POC Glucose (mg/dL) 307 H 293 H 162 H (70-110) mg/dL 10/03/22 Range/Units 05:38 POC Glucose (mg/dL) 172 H (70-110) mg/dL Microbiology - Last 24 Hours (Table) 10/02/22 14:27 Gram Stain - Preliminary Abdomen Assessment and Plan Assessment: Abdominal wall abscess External incisional dehiscence Infected ascites Type 2 diabetes mellitus uncontrolled with hyperglycemia Dyslipidemia Hypertension hypertensive cardiovascular disease Gout Obesity Plan: Continue Accu-Cheks and sliding scale insulin as along with the home medicines for type 2 diabetes mellitus and hyperglycemia Continue antihypertensive agent with diuretics Patient for drainage by interventional radiology off anterior abdominal wall abscess Continue Zosyn ID service has been following DVT prophylaxis with subcu heparin Time with Patient: Greater than 30
--- NOTE | 2022-10-04 13:57 | P.PN ---
Subjective Progress Note Date: 10/04/22 Principal diagnosis: Abdominal wall abscess External incisional dehiscence Infected ascites Type 2 diabetes mellitus uncontrolled with hyperglycemia Dyslipidemia Hypertension hypertensive cardiovascular disease Gout Obesity 10/04/2022, patient seen eval examined, sitting upright in chair breathing comfortably denies any chest pain, patient has a drainage catheter with a collection bag, he is status post anterior abdominal wall abscess drainage by interventional radiology remains on home medicines also on IV Zosyn tolerating well. His CBC is within normal limit, urine creatinine is 22/1.1 for sugars is 248, phosphorous is 5, abscess drainage results are pending however wound culture is positive for gram-negative rods, review of the data revealed that 100 mL of serous blood-tinged fluid was aspirated with 8.5-German catheter under ultrasonic guidance 10/03/2022, patient seen eval reexamined on fourth floor, patient is scheduled for interventional radiology to drain the anterior abdominal wall abscess, patient of note that presented on October 01 with large amount of purulent drainage from the anterior abdominal wound ID service has been following patient is on broad-spectrum antibiotics via PICC line is other meds active medical problem includes diabetes chest. Anemia hypertension and congestive heart failure with hypertensive heart disease Objective - Vital Signs Vital signs: Vital Signs Temp 97.9 F 10/04/22 07:10 Pulse 88 10/04/22 07:10 Resp 16 10/04/22 08:59 BP 157/89 10/04/22 07:10 Pulse Ox 94 L 10/04/22 07:10 FiO2 Intake & Output 10/03/22 10/04/22 10/04/22 18:59 06:59 18:59 Output Total 25 4 Balance -25 -4 Output: Drainage 25 Right Abdomen 25 Stool 4 Other: Voiding Method Toilet # Voids 2 1 - Exam - Constitutional General appearance: Present: average body habitus, cooperative, disheveled - EENT Eyes: Present: PERRLA ENT: Present: normal oropharynx Ears: bilateral: normal - Neck Neck: Present: normal ROM Carotids: bilateral: upstroke normal Thyroid: bilateral: normal size - Respiratory Respiratory: bilateral: CTA - Cardiovascular Rhythm: regular Heart sounds: normal: S1, S2 - Gastrointestinal General gastrointestinal: Present: normal bowel sounds, soft - Integumentary Integumentary: Present: cellulitis - Neurologic Neurologic: Present: CNII-XII intact - Musculoskeletal Musculoskeletal: Present: gait normal, generalized weakness, strength equal bilaterally - Psychiatric Psychiatric: Present: A&O x's 3, appropriate affect, intact judgment & insight - Labs CBC & Chem 7: 10/04/22 07:13 10/04/22 07:13 Labs: Abnormal Lab Results - Last 24 Hours (Table) 10/03/22 10/03/22 10/04/22 Range/Units 16:18 21:05 05:52 Lymphocytes # (1.0-4.8) k/uL BUN (9-20) mg/dL Glucose (74-99) mg/dL POC Glucose (mg/dL) 188 H 156 H 207 H (70-110) mg/dL Phosphorus (2.5-4.5) mg/dL 10/04/22 10/04/22 10/04/22 Range/Units 07:13 07:13 11:26 Lymphocytes # 0.8 L (1.0-4.8) k/uL BUN 22 H (9-20) mg/dL Glucose 191 H (74-99) mg/dL POC Glucose (mg/dL) 248 H (70-110) mg/dL Phosphorus 5.0 H (2.5-4.5) mg/dL Microbiology - Last 24 Hours (Table) 10/02/22 14:27 Gram Stain - Preliminary Abdomen Wound Culture - Preliminary Gram Neg Bacilli 10/01/22 09:50 Blood Culture - Preliminary Blood Assessment and Plan Assessment: Abdominal wall abscess status post drainage and placement of catheter by IR on 10/03/2022 External incisional dehiscence Infected ascites Type 2 diabetes mellitus uncontrolled with hyperglycemia Dyslipidemia Hypertension hypertensive cardiovascular disease Gout Obesity Plan: Follow-up cytology and culture results and report Continue Accu-Cheks and sliding scale insulin as along with the home medicines for type 2 diabetes mellitus and hyperglycemia Continue antihypertensive agent with diuretics Patient for drainage by interventional radiology off anterior abdominal wall abscess Continue Zosyn ID service has been following DVT prophylaxis with subcu heparin Time with Patient: Greater than 30
[2022-10-04 15:59] LABS: Glucose,Whole Blood 159 mg/dL (70-110)
--- NOTE | 2022-10-04 16:19 | P.PN ---
Subjective Progress Note Date: 10/04/22 Principal diagnosis: Abdominal wound infection Patient is a 51-year-old male with a past medical history significant for open repair of incarcerated incisional hernia and partial omonectomy that was done on 07/01/2022,, subsequently presented to hospital with nonhealing a bdominal wound drainage concerning for wound infection patient is status post IR drainage of the fluid collection along with drainage catheter placement on 10/03/2022 On today's evaluation that is 10/04/2022, patient remains to be afebrile, patient is feeling better, the patient denies having any abdominal pain or chest pain shortness breath occasional cough no vomiting or diarrhea Objective - Vital Signs Vital signs: Vital Signs Temp 97.9 F 10/04/22 07:10 Pulse 88 10/04/22 07:10 Resp 16 10/04/22 08:59 BP 157/89 10/04/22 07:10 Pulse Ox 94 L 10/04/22 07:10 FiO2 Intake & Output 10/03/22 10/04/22 10/04/22 18:59 06:59 18:59 Output Total 25 4 Balance -25 -4 Output: Drainage 25 Right Abdomen 25 Stool 4 Other: Voiding Method Toilet # Voids 2 1 - Exam GENERAL DESCRIPTION: Middle-aged male lying in bed in no distress RESPIRATORY SYSTEM: Unlabored breathing , decreased breath sounds at bases HEART: S1 S2 regular rate and rhythm , ABDOMEN: Soft , midline abdominal wound is currently dressed patient did have some distention EXTREMITIES: No edema feet - Labs CBC & Chem 7: 10/04/22 07:13 10/04/22 07:13 Labs: Abnormal Lab Results - Last 24 Hours (Table) 10/03/22 10/03/22 10/04/22 Range/Units 16:18 21:05 05:52 Lymphocytes # (1.0-4.8) k/uL BUN (9-20) mg/dL Glucose (74-99) mg/dL POC Glucose (mg/dL) 188 H 156 H 207 H (70-110) mg/dL Phosphorus (2.5-4.5) mg/dL 10/04/22 10/04/22 10/04/22 Range/Units 07:13 07:13 11:26 Lymphocytes # 0.8 L (1.0-4.8) k/uL BUN 22 H (9-20) mg/dL Glucose 191 H (74-99) mg/dL POC Glucose (mg/dL) 248 H (70-110) mg/dL Phosphorus 5.0 H (2.5-4.5) mg/dL Microbiology - Last 24 Hours (Table) 10/02/22 14:27 Gram Stain - Preliminary Abdomen Wound Culture - Preliminary Gram Neg Bacilli 10/01/22 09:50 Blood Culture - Preliminary Blood Assessment and Plan (1) Abdominal wall abscess at site of surgical wound Current Visit: Yes Status: Acute Code(s): T81.49XA - INFECTION FOLLOWING A PROCEDURE, OTHER SURGICAL SITE, INIT SNOMED Code(s): 130573056 (2) External incisional dehiscence Current Visit: Yes Status: Acute Code(s): T81.31XA - DISRUPTION OF EXTERNAL OPERATION (SURGICAL) WOUND, NEC, INIT SNOMED Code(s): 468831291168135 Plan: 1patient with a history of open repair of incarcerated incisional hernia partial omentectomy on 07/01/2022 at the patient did have a nonhealing wound to the mid abdominal area since then and apparently did have a multiple admission to the hospital for the same problem patient did not have any fever or elevated white count however he was noticed to have some purulent drainage concerning for cellulitis/wound infection possibly from enteric gram-negative pathogen. 2patient did have CT of abdominal pelvis with oral contrast with evidence of fluid collection status post IR drainage, deep cultures are currently pending superficial cultures are currently growing gram-negative 3patient to continue with Zosyn 3.375 g every 8 hours and monitor clinical co urse closely Time with Patient: Less than 30
[2022-10-04 20:44] LABS: Glucose,Whole Blood 164 mg/dL (70-110)
[2022-10-04] MEDS: ATORVASTATIN 10 MG TAB PO SCH (21:02)
[2022-10-05] MEDS: PIPERACILLIN-TAZOBACTAM 3.375 GM in SODIUM CHLORIDE 0.9% 100 ML IVPB SCH ×3 (00:54→15:34)
[2022-10-05 05:53] LABS: Glucose,Whole Blood 208 mg/dL (70-110)
[2022-10-05] MEDS: INSULIN ASPART (NovoLOG) 100 UNIT/ML VIAL SQ SCH ×4 (06:09→20:43)
--- NOTE | 2022-10-05 10:19 | P.PN ---
Subjective Progress Note Date: 10/05/22 Principal diagnosis: Abdominal wound infection Patient is a 51-year-old male with a past medical history significant for open repair of incarcerated incisional hernia and partial omonectomy that was done on 07/01/2022,, subsequently presented to hospital with nonhealing a bdominal wound drainage concerning for wound infection patient is status post IR drainage of the fluid collection along with drainage catheter placement on 10/03/2022 On today's evaluation that is 10/05/2022, patient continues to be afebrile, patient denies having any abdominal pain or chest pain shortness breath occasional cough no vomiting or diarrhea Objective - Vital Signs Vital signs: Vital Signs Temp 98.0 F 10/05/22 06:48 Pulse 73 10/05/22 06:48 Resp 16 10/05/22 06:48 BP 119/69 10/05/22 06:48 Pulse Ox 97 10/05/22 06:48 FiO2 Intake & Output 10/04/22 10/05/22 10/05/22 18:59 06:59 18:59 Output Total 28 Balance -28 Output: Drainage 25 Right Abdomen 25 Urine 3 Other: Voiding Method Toilet # Voids 4 - Exam GENERAL DESCRIPTION: Middle-aged male lying in bed in no distress RESPIRATORY SYSTEM: Unlabored breathing , decreased breath sounds at bases HEART: S1 S2 regular rate and rhythm , ABDOMEN: Soft , midline abdominal wound is currently dressed patient did have some distention EXTREMITIES: No edema feet - Labs CBC & Chem 7: 10/04/22 07:13 10/04/22 07:13 Labs: Abnormal Lab Results - Last 24 Hours (Table) 10/04/22 10/04/22 10/04/22 Range/Units 07:13 11:26 15:57 BUN 22 H (9-20) mg/dL Glucose 191 H (74-99) mg/dL POC Glucose (mg/dL) 248 H 159 H (70-110) mg/dL Phosphorus 5.0 H (2.5-4.5) mg/dL 10/04/22 10/05/22 Range/Units 20:43 05:52 BUN (9-20) mg/dL Glucose (74-99) mg/dL POC Glucose (mg/dL) 164 H 208 H (70-110) mg/dL Phosphorus (2.5-4.5) mg/dL Assessment and Plan (1) Abdominal wall abscess at site of surgical wound Current Visit: Yes Status: Acute Code(s): T81.49XA - INFECTION FOLLOWING A PROCEDURE, OTHER SURGICAL SITE, INIT SNOMED Code(s): 265789770 (2) External incisional dehiscence Current Visit: Yes Status: Acute Code(s): T81.31XA - DISRUPTION OF EXTERNAL OPERATION (SURGICAL) WOUND, NEC, INIT SNOMED Code(s): 594497964982760 Plan: 1patient with a history of open repair of incarcerated incisional hernia partial omentectomy on 07/01/2022 at the patient did have a nonhealing wound to the mid abdominal area since then and apparently did have a multiple admission to the hospital for the same problem patient did not have any fever or elevated white count however he was noticed to have some purulent drainage concerning for cellulitis/wound infection possibly from enteric gram-negative pathogen. 2patient did have CT of abdominal pelvis with oral contrast with evidence of fluid collection status post IR drainage, deep cultures are currently pending superficial cultures are currently growing gram-negative with ID sensitivities currently pending 3patient has shown clinical improvement and well continue with Zosyn 3.375 g every 8 hours and monitor clinical course closely Time with Patient: Less than 30
[2022-10-05] MEDS: FUROSEMIDE 20 MG TAB PO SCH (10:22)
[2022-10-05] MEDS: FAMOTIDINE 20 MG TAB PO SCH ×2 (10:23→21:38)
[2022-10-05] MEDS: DAPAGLIFLOZIN PROPANEDIOL 10 MG TABLET PO SCH (10:23)
[2022-10-05] MEDS: HYDROcodone/APAP 7.5-325MG 1 EACH TAB PO SCH ×3 (10:23→21:38)
[2022-10-05] MEDS: lisinopriL 20 MG TAB PO SCH (10:23)
[2022-10-05] MEDS: metFORMIN 500 MG TAB PO SCH ×2 (10:23→21:38)
[2022-10-05] MEDS: SEVELAMER 800 MG TAB PO SCH (10:23)
[2022-10-05] MEDS: PREGABALIN 100 MG CAP PO SCH ×3 (10:23→21:38)
[2022-10-05] MEDS: PIOGLITAZONE 15 MG TAB PO SCH (10:23)
[2022-10-05] MEDS: LINAGLIPTIN 5 MG TABLET PO SCH (10:23)
[2022-10-05] MEDS: allopurinoL 100 MG TAB PO SCH (10:23)
[2022-10-05] MEDS: ENOXAPARIN 40 MG/0.4 ML SYRINGE SQ SCH (10:24)
--- NOTE | 2022-10-05 10:58 | P.PN ---
Subjective Progress Note Date: 10/05/22 Principal diagnosis: Abdominal wall abscess External incisional dehiscence Infected ascites Type 2 diabetes mellitus uncontrolled with hyperglycemia Dyslipidemia Hypertension hypertensive cardiovascular disease Gout Obesity 10/05/2022, patient seen eval reexamined during the rounds reviewed medications reviewed, patient is resting, patient is on oral [place] patient has been continued on his medication for gout as well as dyslipidemia, patient is on DVT prophylaxis now with Lovenox and PPI for peptic ulcer disease prophylaxis patient continued on short and long-acting insulin along with oral hypoglycemic agent sugars fairly stable and low 100 to low 200 range 10/04/2022, patient seen eval examined, sitting upright in chair breathing comfortably denies any chest pain, patient has a drainage catheter with a collection bag, he is status post anterior abdominal wall abscess drainage by interventional radiology remains on home medicines also on IV Zosyn tolerating well. His CBC is within normal limit, urine creatinine is 22/1.1 for sugars is 248, phosphorous is 5, abscess drainage results are pending however wound culture is positive for gram-negative rods, review of the data revealed that 100 mL of serous blood-tinged fluid was aspirated with 8.5-Ivorian catheter under ultrasonic guidance 10/03/2022, patient seen eval reexamined on fourth floor, patient is scheduled for interventional radiology to drain the anterior abdominal wall abscess, patient of note that presented on October 01 with large amount of purulent drainage from the anterior abdominal wound ID service has been following patient is on broad-spectrum antibiotics via PICC line is other meds active medical problem includes diabetes chest. Anemia hypertension and congestive heart failure with hypertensive heart disease Objective - Vital Signs Vital signs: Vital Signs Temp 98.0 F 10/05/22 06:48 Pulse 73 10/05/22 06:48 Resp 16 10/05/22 06:48 BP 119/69 10/05/22 06:48 Pulse Ox 97 10/05/22 06:48 FiO2 Intake & Output 10/04/22 10/05/22 10/05/22 18:59 06:59 18:59 Output Total 28 Balance -28 Output: Drainage 25 Right Abdomen 25 Urine 3 Other: Voiding Method Toilet # Voids 4 - Exam - Constitutional General appearance: Present: average body habitus, cooperative, disheveled - EENT Eyes: Present: PERRLA ENT: Present: normal oropharynx Ears: bilateral: normal - Neck Neck: Present: normal ROM Carotids: bilateral: upstroke normal Thyroid: bilateral: normal size - Respiratory Respiratory: bilateral: CTA - Cardiovascular Rhythm: regular Heart sounds: normal: S1, S2 - Gastrointestinal General gastrointestinal: Present: normal bowel sounds, soft - Integumentary Integumentary: Present: cellulitis - Neurologic Neurologic: Present: CNII-XII intact - Musculoskeletal Musculoskeletal: Present: gait normal, generalized weakness, strength equal bilaterally - Psychiatric Psychiatric: Present: A&O x's 3, appropriate affect, intact judgment & insight - Labs CBC & Chem 7: 10/04/22 07:13 10/04/22 07:13 Labs: Abnormal Lab Results - Last 24 Hours (Table) 10/04/22 10/04/22 10/04/22 Range/Units 11:26 15:57 20:43 POC Glucose (mg/dL) 248 H 159 H 164 H (70-110) mg/dL 10/05/22 Range/Units 05:52 POC Glucose (mg/dL) 208 H (70-110) mg/dL Assessment and Plan Assessment: Abdominal wall abscess status post drainage and placement of catheter by IR on 10/03/2022 External incisional dehiscence Infected ascites Type 2 diabetes mellitus uncontrolled with hyperglycemia Dyslipidemia Hypertension hypertensive cardiovascular disease Gout Obesity Plan: Follow-up cytology and culture results and report Continue Accu-Cheks and sliding scale insulin as along with the home medicines for type 2 diabetes mellitus and hyperglycemia Continue antihypertensive agent with diuretics Patient for drainage by interventional radiology off anterior abdominal wall abscess Continue Zosyn ID service has been following DVT prophylaxis with subcu heparin Time with Patient: Greater than 30
[2022-10-05 11:19] LABS: Glucose,Whole Blood 202 mg/dL (70-110)
[2022-10-05 16:31] LABS: Glucose,Whole Blood 172 mg/dL (70-110)
[2022-10-05 20:43] LABS: Glucose,Whole Blood 138 mg/dL (70-110)
[2022-10-05] MEDS: ATORVASTATIN 10 MG TAB PO SCH (21:38)
[2022-10-06] MEDS: PIPERACILLIN-TAZOBACTAM 3.375 GM in SODIUM CHLORIDE 0.9% 100 ML IVPB SCH ×4 (00:02→23:38)
[2022-10-06 06:15] LABS: Glucose,Whole Blood 163 mg/dL (70-110)
[2022-10-06] MEDS: INSULIN ASPART (NovoLOG) 100 UNIT/ML VIAL SQ SCH ×4 (06:42→21:40)
[2022-10-06] MEDS: metFORMIN 500 MG TAB PO SCH ×2 (09:01→21:40)
[2022-10-06] MEDS: PIOGLITAZONE 15 MG TAB PO SCH (09:01)
[2022-10-06] MEDS: LINAGLIPTIN 5 MG TABLET PO SCH (09:01)
[2022-10-06] MEDS: FUROSEMIDE 20 MG TAB PO SCH (09:01)
[2022-10-06] MEDS: HYDROcodone/APAP 7.5-325MG 1 EACH TAB PO SCH ×3 (09:01→21:39)
[2022-10-06] MEDS: SEVELAMER 800 MG TAB PO SCH (09:01)
[2022-10-06] MEDS: lisinopriL 20 MG TAB PO SCH (09:01)
[2022-10-06] MEDS: allopurinoL 100 MG TAB PO SCH (09:01)
[2022-10-06] MEDS: ENOXAPARIN 40 MG/0.4 ML SYRINGE SQ SCH (09:01)
[2022-10-06] MEDS: DAPAGLIFLOZIN PROPANEDIOL 10 MG TABLET PO SCH (09:01)
[2022-10-06] MEDS: FAMOTIDINE 20 MG TAB PO SCH ×2 (09:01→21:40)
[2022-10-06] MEDS: PREGABALIN 100 MG CAP PO SCH ×3 (09:01→21:40)
[2022-10-06 11:31] LABS: Glucose,Whole Blood 197 mg/dL (70-110)
--- NOTE | 2022-10-06 13:45 | P.PN ---
Subjective Progress Note Date: 10/06/22 Principal diagnosis: Abdominal wall abscess External incisional dehiscence Infected ascites Type 2 diabetes mellitus uncontrolled with hyperglycemia Dyslipidemia Hypertension hypertensive cardiovascular disease Gout Obesity 11/05/2022, patient seen and evaluated examined during rounds pain and tenderness in the groin area improved, significant improvement in drainage is present chest last night about 10 mL in the bag wound cultures are positive for gram-negative bacilli, blood culture however on the other hand negative so far, she remains on IV Zosyn and infectious disease is following, sugar relatively stable ranging in mid to high 100 range 10/05/2022, patient seen eval reexamined during the rounds reviewed medications reviewed, patient is resting, patient is on oral [place] patient has been continued on his medication for gout as well as dyslipidemia, patient is on DVT prophylaxis now with Lovenox and PPI for peptic ulcer disease prophylaxis patient continued on short and long-acting insulin along with oral hypoglycemic agent sugars fairly stable and low 100 to low 200 range 10/04/2022, patient seen eval examined, sitting upright in chair breathing com fortably denies any chest pain, patient has a drainage catheter with a collection bag, he is status post anterior abdominal wall abscess drainage by interventional radiology remains on home medicines also on IV Zosyn tolerating well. His CBC is within normal limit, urine creatinine is 22/1.1 for sugars is 248, phosphorous is 5, abscess drainage results are pending however wound culture is positive for gram-negative rods, review of the data revealed that 100 mL of serous blood-tinged fluid was aspirated with 8.5-Ind[place] catheter under ultrasonic guidance 10/03/2022, patient seen eval reexamined on fourth floor, patient is scheduled for interventional radiology to drain the anterior abdominal wall abscess, patient of note that presented on October 01 with large amount of purulent drainage from the anterior abdominal wound ID service has been following patient is on broad-spectrum antibiotics via PICC line is other meds active medical problem includes diabetes chest. Anemia hypertension and congestive heart failure with hypertensive heart disease Objective - Vital Signs Vital signs: Vital Signs Temp 98.0 F 10/06/22 06:40 Pulse 71 10/06/22 06:40 Resp 16 10/06/22 06:40 BP 140/79 10/06/22 06:40 Pulse Ox 97 10/06/22 06:40 FiO2 Intake & Output 06/02/1710/06/22 10/06/22 18:59 06:59 18:59 Intake Total 100 500 Output Total 10 4 Balance 90 500 -4 Intake: Intake, IV Titration 100 Amount Piperacillin-Tazobactam 3 100 .375 gm In Sodium Chloride 0.9% 100 ml @ 25 mls/hr IVPB Q8HR [facility] Rx# :[id number] Oral 500 Output: Drainage 10 4 Right Abdomen 10 4 Other: Voiding Method Toilet # Voids 2 - Exam - Constitutional General appearance: Present: average body habitus, cooperative, disheveled - EENT Eyes: Present: PERRLA ENT: Present: normal oropharynx Ears: bilateral: normal - Neck Neck: Present: normal ROM Carotids: bilateral: upstroke normal Thyroid: bilateral: normal size - Respiratory Respiratory: bilateral: CTA - Cardiovascular Rhythm: regular Heart sounds: normal: S1, S2 - Gastrointestinal General gastrointestinal: Present: normal bowel sounds, soft - Integumentary Integumentary: Present: cellulitis - Neurologic Neurologic: Present: CNII-XII intact - Musculoskeletal Musculoskeletal: Present: gait normal, generalized weakness, strength equal bilaterally - Psychiatric Psychiatric: Present: A&O x's 3, appropriate affect, intact judgment & insight - Labs CBC & Chem 7: 10/04/22 07:13 10/04/22 07:13 Labs: Abnormal Lab Results - Last 24 Hours (Table) 10/05/22 10/05/22 10/06/22 Range/Units 16:29 20:41 06:13 POC Glucose (mg/dL) 172 H 138 H 163 H (70-110) mg/dL 10/06/22 Range/Units 11:29 POC Glucose (mg/dL) 197 H (70-110) mg/dL Microbiology - Last 24 Hours (Table) 10/01/22 09:50 Blood Culture - Preliminary Blood 10/02/22 14:27 Gram Stain - Preliminary Abdomen Wound Culture - Preliminary Gram Neg Bacilli 10/02/22 14:27 Anaerobic Culture - Preliminary Abdomen Assessment and Plan Assessment: Abdominal wall abscess status post drainage and placement of catheter by IR on 10/03/2022 External incisional dehiscence Infected ascites Type 2 diabetes mellitus uncontrolled with hyperglycemia Dyslipidemia Hypertension hypertensive cardiovascular disease Gout Obesity Plan: Follow-up cytology and culture results and report Continue Accu-Cheks and sliding scale insulin as along with the home medicines for type 2 diabetes mellitus and hyperglycemia Continue antihypertensive agent with diuretics Patient for drainage by interventional radiology off anterior abdominal wall abscess Continue Zosyn ID service has been following DVT prophylaxis with subcu heparin Time with Patient: Greater than 30
--- NOTE | 2022-10-06 15:32 | P.PN ---
Subjective Progress Note Date: 10/06/22 Principal diagnosis: Abdominal wound infection Patient is a 51-year-old male with a past medical history significant for open repair of incarcerated incisional hernia and partial omonectomy that was done on 07/01/2022,, subsequently presented to hospital with nonhealing a bdominal wound drainage concerning for wound infection patient is status post IR drainage of the fluid collection along with drainage catheter placement on 10/03/2022 On today's evaluation that is 10/06/2022, patient denies any fever or any chills, patient denies having any abdominal pain , nausea no vomiting, the patient denies chest pain shortness breath occasional cough no vomiting or diarrhea Objective - Vital Signs Vital signs: Vital Signs Temp 98.0 F 10/06/22 06:40 Pulse 71 10/06/22 06:40 Resp 16 10/06/22 06:40 BP 140/79 10/06/22 06:40 Pulse Ox 97 10/06/22 06:40 FiO2 Intake & Output 10/05/22 10/06/22 10/06/22 18:59 06:59 18:59 Intake Total 100 500 100 Output Total 10 4 Balance 90 500 96 Intake: Intake, IV Titration 100 100 Amount Piperacillin-Tazobactam 3 100 100 .375 gm In Sodium Chloride 0.9% 100 ml @ 25 mls/hr IVPB Q8HR [facility] Rx# :[id number] Oral 500 Output: Drainage 10 4 Right Abdomen 10 4 Other: Voiding Method Toilet # Voids 2 - Exam GENERAL DESCRIPTION: Middle-aged male lying in bed in no distress RESPIRATORY SYSTEM: Unlabored breathing , decreased breath sounds at bases HEART: S1 S2 regular rate and rhythm , ABDOMEN: Soft , midline abdominal wound is currently dressed patient did have some distention EXTREMITIES: No edema feet - Labs CBC & Chem 7: 10/04/22 07:13 10/04/22 07:13 Labs: Abnormal Lab Results - Last 24 Hours (Table) 10/05/22 10/05/22 10/06/22 Range/Units 16:29 20:41 06:13 POC Glucose (mg/dL) 172 H 138 H 163 H (70-110) mg/dL 10/06/22 Range/Units 11:29 POC Glucose (mg/dL) 197 H (70-110) mg/dL Microbiology - Last 24 Hours (Table) 10/01/22 09:50 Blood Culture - Preliminary Blood 10/02/22 14:27 Gram Stain - Preliminary Abdomen Wound Culture - Preliminary Gram Neg Bacilli 10/02/22 14:27 Anaerobic Culture - Preliminary Abdomen Assessment and Plan (1) Abdominal wall abscess at site of surgical wound Current Visit: Yes Status: Acute Code(s): T81.49XA - INFECTION FOLLOWING A PROCEDURE, OTHER SURGICAL SITE, INIT SNOMED Code(s): 013579741 (2) External incisional dehiscence Current Visit: Yes Status: Acute Code(s): T81.31XA - DISRUPTION OF EXTERNAL OPERATION (SURGICAL) WOUND, NEC, INIT SNOMED Code(s): 461908828905502 Plan: 1patient with a history of open repair of incarcerated incisional hernia partial omentectomy on 07/01/2022 at the patient did have a nonhealing wound to the mid abdominal area since then and apparently did have a multiple admission to the hospital for the same problem patient did not have any fever or elevated white count however he was noticed to have some purulent drainage concerning for cellulitis/wound infection possibly from enteric gram-negative pathogen. 2patient did have CT of abdominal pelvis with oral contrast with evidence of fluid collection status post IR drainage, deep cultures are currently pending superficial cultures are currently growing gram-negative with ID sensitivities still pending as of 10/06/2022 3patient to continue with Zosyn 3.375 g every 8 hours while waiting for the cultures to finalize Time with Patient: Less than 30
[2022-10-06 16:47] LABS: Glucose,Whole Blood 154 mg/dL (70-110)
[2022-10-06 20:47] LABS: Glucose,Whole Blood 168 mg/dL (70-110)
[2022-10-06] MEDS: ATORVASTATIN 10 MG TAB PO SCH (21:39)
[2022-10-07 06:15] LABS: Glucose,Whole Blood 205 mg/dL (70-110)
[2022-10-07] MEDS: INSULIN ASPART (NovoLOG) 100 UNIT/ML VIAL SQ SCH ×4 (06:40→21:21)
[2022-10-07] MEDS: PIOGLITAZONE 15 MG TAB PO SCH (09:02)
[2022-10-07] MEDS: HYDROcodone/APAP 7.5-325MG 1 EACH TAB PO SCH ×3 (09:02→21:20)
[2022-10-07] MEDS: lisinopriL 20 MG TAB PO SCH (09:02)
[2022-10-07] MEDS: PREGABALIN 100 MG CAP PO SCH ×3 (09:02→21:21)
[2022-10-07] MEDS: DAPAGLIFLOZIN PROPANEDIOL 10 MG TABLET PO SCH (09:02)
[2022-10-07] MEDS: metFORMIN 500 MG TAB PO SCH ×2 (09:02→21:20)
[2022-10-07] MEDS: PIPERACILLIN-TAZOBACTAM 3.375 GM in SODIUM CHLORIDE 0.9% 100 ML IVPB SCH ×3 (09:02→23:55)
[2022-10-07] MEDS: SEVELAMER 800 MG TAB PO SCH (09:02)
[2022-10-07] MEDS: ENOXAPARIN 40 MG/0.4 ML SYRINGE SQ SCH (09:03)
[2022-10-07] MEDS: allopurinoL 100 MG TAB PO SCH (09:03)
[2022-10-07] MEDS: FUROSEMIDE 20 MG TAB PO SCH (09:03)
[2022-10-07] MEDS: FAMOTIDINE 20 MG TAB PO SCH ×2 (09:03→21:21)
[2022-10-07 11:28] LABS: Glucose,Whole Blood 166 mg/dL (70-110)
[2022-10-07] MEDS: LINAGLIPTIN 5 MG TABLET PO SCH (11:56)
[2022-10-07 16:42] LABS: Glucose,Whole Blood 193 mg/dL (70-110)
[2022-10-07] MEDS ORDERED: ERGOCALCIFEROL 1,250 MCG (50,000 IU) CAPSULE PO SCH (20:00)
[2022-10-07 21:01] LABS: Glucose,Whole Blood 260 mg/dL (70-110)
[2022-10-07] MEDS: ATORVASTATIN 10 MG TAB PO SCH (21:21)
--- NOTE | 2022-10-08 03:05 | PN ---
PROGRESS NOTE SUBJECTIVE: The patient remains on diabetes medicines, gout medicines, dyslipidemia medicines, Lovenox. He is being treated for wound infection in the abdomen with Zosyn. He had a tube placed per Dr. Irene waiting for tube to be removed as it has not had any drainage out for 2-3 days. OBJECTIVE: VITAL SIGNS: Blood pressure 117/70, O2 97 on room air, temp 98.4, pulse 78, respiratory rate 10. Gram-negative bacilli from the wound, unclear what bacteria it is. Waiting for further recommendation for Dr. Mendez for antibiotics. PROGNOSIS: Guarded. Wound drainage, we will monitor that. Prognosis guarded. Please see further orders. MMODL / IJN: [id number] /
[2022-10-08 06:12] LABS: Glucose,Whole Blood 164 mg/dL (70-110)
[2022-10-08] MEDS: INSULIN ASPART (NovoLOG) 100 UNIT/ML VIAL SQ SCH ×4 (06:37→21:37)
[2022-10-08] MEDS: PIPERACILLIN-TAZOBACTAM 3.375 GM in SODIUM CHLORIDE 0.9% 100 ML IVPB SCH ×2 (08:50→16:30)
[2022-10-08] MEDS: ENOXAPARIN 40 MG/0.4 ML SYRINGE SQ SCH (08:50)
[2022-10-08] MEDS: PREGABALIN 100 MG CAP PO SCH ×3 (08:50→21:30)
[2022-10-08] MEDS: metFORMIN 500 MG TAB PO SCH ×2 (08:50→21:30)
[2022-10-08] MEDS: lisinopriL 20 MG TAB PO SCH (08:51)
[2022-10-08] MEDS: DAPAGLIFLOZIN PROPANEDIOL 10 MG TABLET PO SCH (08:51)
[2022-10-08] MEDS: FUROSEMIDE 20 MG TAB PO SCH (08:51)
[2022-10-08] MEDS: HYDROcodone/APAP 7.5-325MG 1 EACH TAB PO SCH ×3 (08:51→21:30)
[2022-10-08] MEDS: SEVELAMER 800 MG TAB PO SCH (08:51)
[2022-10-08] MEDS: allopurinoL 100 MG TAB PO SCH (08:51)
[2022-10-08] MEDS: PIOGLITAZONE 15 MG TAB PO SCH (08:51)
[2022-10-08] MEDS: LINAGLIPTIN 5 MG TABLET PO SCH (08:51)
[2022-10-08] MEDS: FAMOTIDINE 20 MG TAB PO SCH ×2 (08:51→21:32)
[2022-10-08 11:11] LABS: Glucose,Whole Blood 173 mg/dL (70-110)
[2022-10-08 12:21] LABS: Basophils % (A) 0 %; Eosinophils # (A) 0.1 k/uL (0-0.7); Eosinophils % (A) 2 %; HCT 46.1 % (39.0-53.0); HGB 14.5 gm/dL (13.0-17.5); Lymphocytes % (A) 14 %; MCH 31.5 pg (25.0-35.0); MCHC 31.4 g/dL (31.0-37.0); MCV 100.5 fL (80.0-100.0); Mean Platelet Volume 8.4; Monocytes # (A) 0.6 k/uL (0-1.0); Monocytes % (A) 8 %; Neutrophils % (A) 72 %; Platelet Count 217 k/uL (150-450); RBC 4.59 m/uL (4.30-5.90)
[2022-10-08 12:31] LABS: ALT 55 U/L (4-49); AST 43 U/L (17-59); African American GFR (CKD) >90 (>60 ml/min/1.73 sqM); Albumin 4.1 g/dL (3.5-5.0); Albumin/Globulin Ratio 1.3; Alkaline Phosphatase 79 U/L (38-126); Anion Gap 13 mmol/L; Blood Urea Nitrogen 23 mg/dL (9-20); C Reactive Protein 2.7 mg/dL (<1.0); Calcium 9.4 mg/dL (8.4-10.2); Carbon Dioxide 22 mmol/L (22-30); Chloride 102 mmol/L (98-107); Globulin 3.1 g/dL; Glucose 147 mg/dL (74-99); Non-African American GFR(CKD) 84 (>60 ml/min/1.73 sqM); Potassium 4.6 mmol/L (3.5-5.1); Sodium 137 mmol/L (137-145); Total Bilirubin 0.5 mg/dL (0.2-1.3); Total Protein 7.2 g/dL (6.3-8.2)
[2022-10-08 13:26] VITALS: BMI 31.5
[2022-10-08] MEDS: IOPAMIDOL CONTRAST (ORAL USE) VIAL PO PRN ×2 (13:51→15:05)
[2022-10-08 16:10] LABS: Glucose,Whole Blood 191 mg/dL (70-110)
--- NOTE | 2022-10-08 16:32 | CT ---
EXAMINATION TYPE: CT abdomen pelvis wo con DATE OF EXAM: 10/08/2022 COMPARISON: 10/02/2022 HISTORY: 51-year-old male f/u abdominal abscess CT DLP: 1149.4 mGycm. Automated exposure control for dose reduction was used. TECHNIQUE: Contiguous axial scanning of the abdomen and pelvis without IV contrast. Coronal and sagit baltazar reconstructions performed. FINDINGS: Heart normal size without pericardial effusion. Lung bases clear without pleural effusion. Tiny hiatal hernia. Noncontrast appearance of the liver, gallbladder, spleen, and pancreas show no gross organomegaly. Bilateral perinephric edema could relate to third spacing and anasarca. Mild diffuse thickening of the bilateral adrenal glands is unchanged. No dilated small bowel, free fluid, or free air. No mesenteric or retroperitoneal lymphadenopathy. Oral contrast progressed to the splenic flexure of the colon. No significant stool burden. There is s igmoid diverticulosis. No pericolonic inflammatory change. Circumferential bladder wall thickening. Small pelvic fluid ligaments. No abnormal fluid collection t he pelvis or pelvic lymphadenopathy. Extensive soft tissue swelling along the anterior abdominal wall with a small wound near the level of the umbilicus. There is an underlying sizable fluid collection within the subcutaneous adipose layer , overlying the superficial muscular fascia measuring 10.5 cm wide by 12.5 cm craniocaudal by 4.8 cm thick. This is in comparison to 12.4 x 14.6 x 6.2 cm, previously. Bones: Facet arthropathy lower lumbar spine. Addition the lower thoracic spine. IMPRESSION: 1. The patient's anterior abdominal wall abscess persists. It is only slightly smaller measuring 12. 5 x 10.5 x 4.8 cm (versus 14.6 x 12.4 x 6.2 cm, previously). 2. Extensive surrounding cellulitis. Persistent overlying wound.
--- NOTE | 2022-10-08 20:22 | P.PN ---
Subjective Progress Note Date: 10/07/22 Principal diagnosis: Abdominal wound infection Patient is a 51-year-old male with a past medical history significant for open repair of incarcerated incisional hernia and partial omonectomy that was done on 07/01/2022,, subsequently presented to hospital with nonhealing a bdominal wound drainage concerning for wound infection patient is status post IR drainage of the fluid collection along with drainage catheter placement on 10/03/2022 On today's evaluation that is 10/07/2022, the patient remains to be afebrile the patient is breathing comfortably, the patient denies having abdominal pain patient did have a drainage catheter with minimal bloodstained fluid in the dr ainage bag no chest pain no shortness of breath or cough Objective - Vital Signs Vital signs: Vital Signs Temp 98.8 F 10/07/22 07:22 Pulse 76 10/07/22 08:00 Resp 18 10/07/22 08:00 BP 135/90 10/07/22 07:22 Pulse Ox 97 10/07/22 07:22 FiO2 Intake & Output 10/06/22 10/07/22 10/07/22 18:59 06:59 18:59 Intake Total 100 Output Total 4 4 Balance 96 -4 Intake: Intake, IV Titration 100 Amount Piperacillin-Tazobactam 3 100 .375 gm In Sodium Chloride 0.9% 100 ml @ 25 mls/hr IVPB Q8HR [facility] Rx# :[id number] Output: Drainage 4 Right Abdomen 4 Stool 4 Other: Voiding Method Toilet Toilet # Voids 3 2 - Exam GENERAL DESCRIPTION: Middle-aged male lying in bed in no distress RESPIRATORY SYSTEM: Unlabored breathing , decreased breath sounds at bases HEART: S1 S2 regular rate and rhythm , ABDOMEN: Soft , midline abdominal wound is currently dressed patient did have some distention EXTREMITIES: No edema feet - Labs CBC & Chem 7: 10/08/22 11:36 10/08/22 11:36 Labs: Abnormal Lab Results - Last 24 Hours (Table) 10/06/22 10/06/22 10/06/22 Range/Units 11:29 16:45 20:45 POC Glucose (mg/dL) 197 H 154 H 168 H (70-110) mg/dL 10/07/22 Range/Units 06:13 POC Glucose (mg/dL) 205 H (70-110) mg/dL Microbiology - Last 24 Hours (Table) 10/02/22 14:27 Anaerobic Culture - Final Abdomen Assessment and Plan (1) Abdominal wall abscess at site of surgical wound Current Visit: Yes Status: Acute Code(s): T81.49XA - INFECTION FOLLOWING A PROCEDURE, OTHER SURGICAL SITE, INIT SNOMED Code(s): 635295793 (2) External incisional dehiscence Current Visit: Yes Status: Acute Code(s): T81.31XA - DISRUPTION OF EXTERNAL OPERATION (SURGICAL) WOUND, NEC, INIT SNOMED Code(s): 739009813679283 Plan: 1patient with a history of open repair of incarcerated incisional hernia partial omentectomy on 07/01/2022 at the patient did have a nonhealing wound to the mid abdominal area since then and apparently did have a multiple admission to the hospital for the same problem patient did not have any fever or elevated white count however he was noticed to have some purulent drainage concerning for cellulitis/wound infection possibly from enteric gram-negative pathogen. 2patient did have CT of abdominal pelvis with oral contrast with evidence of fluid collection status post IR drainage, deep cultures are currently pending superficial cultures are currently growing gram-negative with ID sensitivities still pending as of 10/07/2022, RN has been asked to call the microlab to get update 3patient to continue with Zosyn 3.375 g every 8 hours while waiting for the cultures to finalize to determine his dc antibiotics Time with Patient: Less than 30
--- NOTE | 2022-10-08 20:26 | P.PN ---
Subjective Progress Note Date: 10/08/22 Principal diagnosis: Abdominal wound infection Patient is a 51-year-old male with a past medical history significant for open repair of incarcerated incisional hernia and partial omonectomy that was done on 07/01/2022,, subsequently presented to hospital with nonhealing a bdominal wound drainage concerning for wound infection patient is status post IR drainage of the fluid collection along with drainage catheter placement on 10/03/2022 On today's evaluation that is 10/08/2022, the patient continues to be afebrile, the patient drainage catheter fell off last night accidentally in sleep patient has been very abusive in his language today and has been threatening to leave and questioning why it is taking 7 days for the culture to finalize Objective - Vital Signs Vital signs: Vital Signs Temp 99.5 F 10/08/22 07:10 Pulse 70 10/08/22 07:38 Resp 19 10/08/22 07:38 BP 127/81 10/08/22 07:10 Pulse Ox 98 10/08/22 07:10 FiO2 Intake & Output 10/07/22 10/08/22 10/08/22 18:59 06:59 18:59 Intake Total 700 Output Total 4 Balance 696 Intake: Intake, IV Titration 100 Amount Piperacillin-Tazobactam 3 100 .375 gm In Sodium Chloride 0.9% 100 ml @ 25 mls/hr IVPB Q8HR [facility] Rx# :[id number] Oral 600 Output: Stool 4 Other: Voiding Method Toilet Toilet # Voids 2 2 - Exam GENERAL DESCRIPTION: Middle-aged male lying in bed in no distress RESPIRATORY SYSTEM: Unlabored breathing , decreased breath sounds at bases HEART: S1 S2 regular rate and rhythm , ABDOMEN: Soft , midline abdominal wound is currently dressed patient did have some distention EXTREMITIES: No edema feet - Labs CBC & Chem 7: 10/08/22 11:36 10/08/22 11:36 Labs: Abnormal Lab Results - Last 24 Hours (Table) 10/07/22 10/07/22 10/07/22 Range/Units 11:26 16:41 20:59 POC Glucose (mg/dL) 166 H 193 H 260 H (70-110) mg/dL 10/08/22 10/08/22 Range/Units 06:11 11:10 POC Glucose (mg/dL) 164 H 173 H (70-110) mg/dL Microbiology - Last 24 Hours (Table) 10/01/22 09:50 Blood Culture - Final Blood Assessment and Plan (1) Abdominal wall abscess at site of surgical wound Current Visit: Yes Status: Acute Code(s): T81.49XA - INFECTION FOLLOWING A PROCEDURE, OTHER SURGICAL SITE, INIT SNOMED Code(s): 055111658 (2) External incisional dehiscence Current Visit: Yes Status: Acute Code(s): T81.31XA - DISRUPTION OF EXTERNAL OPERATION (SURGICAL) WOUND, NEC, INIT SNOMED Code(s): 137562150738985 Plan: 1patient with a history of open repair of incarcerated incisional hernia partial omentectomy on 07/01/2022 at the patient did have a nonhealing wound to the mid abdominal area since then and apparently did have a multiple admission to the hospital for the same problem patient did not have any fever or elevated white count however he was noticed to have some purulent drainage concerning for cellulitis/wound infection possibly from enteric gram-negative pathogen. 2patient did have CT of abdominal pelvis with oral contrast with evidence of fluid collection status post IR drainage, deep cultures are currently pending superficial cultures are currently growing gram-negative with ID sensitivities still pending as of 10/07/2022, RN has been asked again to call the microlab to get update on cultures 3as the patient drainage catheter has fell off we have to make sure there is complete resolution of underlying fluid collection/abscess for which repeat CT was done with oral contrast and it shows evidence of persistent abscess with slight decrease in size Case has been discussed with Dr. Hooper patient need to be evaluated by general surgery as the patient has refused to see Dr. Coy we will obtain consultation with Dr. holliday as per discussion with Dr. Hooper 4-significant amount of time was spent with the patient today as he was very abusive in his language, it was explained to the patient we have no control on the micro lab delay all discussion took place in front of his nurse Mahesh Time with Patient: Greater than 30
[2022-10-08 21:00] LABS: Glucose,Whole Blood 172 mg/dL (70-110)
[2022-10-08] MEDS: ATORVASTATIN 10 MG TAB PO SCH (21:32)
[2022-10-09] MEDS: PIPERACILLIN-TAZOBACTAM 3.375 GM in SODIUM CHLORIDE 0.9% 100 ML IVPB SCH ×4 (01:17→23:54)
--- NOTE | 2022-10-09 01:23 | PN ---
PROGRESS NOTE SUBJECTIVE: This is a 51-year-old white male who has a large pocket of fluid under the abdomen wound for which we are going to get a consult with Dr. Ruiz. The patient lockett not want Dr. Coy to see him. He still has large amount of fluid drainage from this area. Continue with broad-spectrum IV Unasyn until gram-negative bacilli culture and sensitivity are back for clinical evaluation. The patient is very upset and nervous. OBJECTIVE: CARDIOVASCULAR: S1, S2. LUNGS: Clear. GI: Soft. HEMATOLOGY: Negative for Homans. PLAN: Continue current treatments as mentioned above. PROGNOSIS: Guarded. Please see further orders. MMODL / IJN: [id number] /
[2022-10-09 06:17] LABS: Glucose,Whole Blood 232 mg/dL (70-110)
[2022-10-09] MEDS: INSULIN ASPART (NovoLOG) 100 UNIT/ML VIAL SQ SCH ×4 (07:05→21:33)
[2022-10-09 07:32] LABS: Basophils % (A) 1 %; Eosinophils # (A) 0.1 k/uL (0-0.7); Eosinophils % (A) 2 %; HCT 46.3 % (39.0-53.0); HGB 14.9 gm/dL (13.0-17.5); Lymphocytes # (A) 0.9 k/uL (1.0-4.8); Lymphocytes % (A) 15 %; MCH 32.7 pg (25.0-35.0); MCHC 32.1 g/dL (31.0-37.0); MCV 101.8 fL (80.0-100.0); Macrocytosis Slight; Mean Platelet Volume 8.1; Monocytes # (A) 0.4 k/uL (0-1.0); Monocytes % (A) 7 %; Neutrophils # (A) 4.5 k/uL (1.3-7.7); Neutrophils % (A) 73 %; Platelet Count 221 k/uL (150-450); RBC 4.54 m/uL (4.30-5.90); RDW 12.7 % (11.5-15.5); WBC 6.1 k/uL (3.8-10.6)
[2022-10-09] MEDS: ENOXAPARIN 40 MG/0.4 ML SYRINGE SQ SCH (08:06)
[2022-10-09] MEDS: DAPAGLIFLOZIN PROPANEDIOL 10 MG TABLET PO SCH (08:06)
[2022-10-09] MEDS: FAMOTIDINE 20 MG TAB PO SCH ×2 (08:07→08:09)
[2022-10-09] MEDS: HYDROcodone/APAP 7.5-325MG 1 EACH TAB PO SCH ×3 (08:07→21:31)
[2022-10-09] MEDS: PIOGLITAZONE 15 MG TAB PO SCH (08:09)
[2022-10-09] MEDS: LINAGLIPTIN 5 MG TABLET PO SCH (08:09)
[2022-10-09] MEDS: allopurinoL 100 MG TAB PO SCH (08:09)
[2022-10-09] MEDS: FUROSEMIDE 20 MG TAB PO SCH (08:09)
[2022-10-09] MEDS: SEVELAMER 800 MG TAB PO SCH (08:09)
[2022-10-09] MEDS: PREGABALIN 100 MG CAP PO SCH ×3 (08:09→21:31)
[2022-10-09] MEDS: lisinopriL 20 MG TAB PO SCH (08:09)
[2022-10-09] MEDS: metFORMIN 500 MG TAB PO SCH ×2 (08:10→21:31)
[2022-10-09 09:22] LABS: ALT 52 U/L (4-49); AST 32 U/L (17-59); African American GFR (CKD) 82 (>60 ml/min/1.73 sqM); Albumin 3.8 g/dL (3.5-5.0); Albumin/Globulin Ratio 1.3; Alkaline Phosphatase 77 U/L (38-126); Anion Gap 8 mmol/L; Blood Urea Nitrogen 25 mg/dL (9-20); Calcium 9.4 mg/dL (8.4-10.2); Carbon Dioxide 26 mmol/L (22-30); Chloride 102 mmol/L (98-107); Glucose 204 mg/dL (74-99); Non-African American GFR(CKD) 71 (>60 ml/min/1.73 sqM); Potassium 4.5 mmol/L (3.5-5.1); Sodium 136 mmol/L (137-145); Total Bilirubin 0.3 mg/dL (0.2-1.3); Total Protein 6.8 g/dL (6.3-8.2)
[2022-10-09 11:09] LABS: Glucose,Whole Blood 267 mg/dL (70-110)
--- NOTE | 2022-10-09 15:15 | P.PN ---
Subjective Progress Note Date: 10/09/22 Principal diagnosis: Abdominal wound infection Patient is a 51-year-old male with a past medical history significant for open repair of incarcerated incisional hernia and partial omonectomy that was done on 07/01/2022,, subsequently presented to hospital with nonhealing a bdominal wound drainage concerning for wound infection patient is status post IR drainage of the fluid collection along with drainage catheter placement on 10/03/2022 On today's evaluation that is 10/09/2022, the patient remains to be afebrile, the patient denies any chest pain shortness of breath or cough patient continued to be aggressive and wants to go home no abdominal pain no nausea no vomiting or diarrhea Objective - Vital Signs Vital signs: Vital Signs Temp 97.6 F 10/09/22 06:45 Pulse 76 10/09/22 06:45 Resp 16 10/09/22 06:45 BP 134/84 10/09/22 06:45 Pulse Ox 98 10/09/22 06:45 FiO2 Intake & Output 10/08/22 10/09/22 10/09/22 18:59 06:59 18:59 Weight 102.512 kg Other: Voiding Method Toilet # Voids 1 3 1 # Bowel Movements 1 - Exam GENERAL DESCRIPTION: Middle-aged male lying in bed in no distress RESPIRATORY SYSTEM: Unlabored breathing , decreased breath sounds at bases HEART: S1 S2 regular rate and rhythm , ABDOMEN: Soft , midline abdominal wound with no significant slough tissue or surrounding redness minimal drainage on the dressing EXTREMITIES: No edema feet - Labs CBC & Chem 7: 10/09/22 06:52 10/09/22 06:52 Labs: Abnormal Lab Results - Last 24 Hours (Table) 10/08/22 10/08/22 10/08/22 Range/Units 11:36 11:36 16:09 MCV 100.5 H (80.0-100.0) fL Lymphocytes # (1.0-4.8) k/uL Sodium (137-145) mmol/L BUN 23 H (9-20) mg/dL Glucose 147 H (74-99) mg/dL POC Glucose (mg/dL) 191 H (70-110) mg/dL ALT 55 H (4-49) U/L C-Reactive Protein 2.7 H (<1.0) mg/dL 10/08/22 10/09/22 10/09/22 Range/Units 20:58 06:15 06:52 MCV 101.8 H (80.0-100.0) fL Lymphocytes # 0.9 L (1.0-4.8) k/uL Sodium (137-145) mmol/L BUN (9-20) mg/dL Glucose (74-99) mg/dL POC Glucose (mg/dL) 172 H 232 H (70-110) mg/dL ALT (4-49) U/L C-Reactive Protein (<1.0) mg/dL 10/09/22 10/09/22 Range/Units 06:52 11:08 MCV (80.0-100.0) fL Lymphocytes # (1.0-4.8) k/uL Sodium 136 L (137-145) mmol/L BUN 25 H (9-20) mg/dL Glucose 204 H (74-99) mg/dL POC Glucose (mg/dL) 267 H (70-110) mg/dL ALT 52 H (4-49) U/L C-Reactive Protein (<1.0) mg/dL Assessment and Plan (1) Abdominal wall abscess at site of surgical wound Current Visit: Yes Status: Acute Code(s): T81.49XA - INFECTION FOLLOWING A PROCEDURE, OTHER SURGICAL SITE, INIT SNOMED Code(s): 728401751 (2) External incisional dehiscence Current Visit: Yes Status: Acute Code(s): T81.31XA - DISRUPTION OF EXTERNAL OPERATION (SURGICAL) WOUND, NEC, INIT SNOMED Code(s): 593944832375176 Plan: 1patient with a history of open repair of incarcerated incisional hernia partial omentectomy on 07/01/2022 at the patient did have a nonhealing wound to the mid abdominal area since then and apparently did have a multiple admission to the hospital for the same problem patient did not have any fever or elevated white count however he was noticed to have some purulent drainage concerning for cellulitis/wound infection possibly from enteric gram-negative pathogen. 2patient did have CT of abdominal pelvis with oral contrast with evidence of fluid collection status post IR drainage, deep cultures are currently pending superficial cultures are currently growing gram-negative with ID sensitivities still pending as of 10/07/2022, RN has been asked again to call the microlab to get update on cultures 3as the patient drainage catheter has fell off we have to make sure there is complete resolution of underlying fluid collection/abscess for which repeat CT was done with oral contrast and it shows evidence of persistent abscess with slight decrease in size Case has been discussed with Dr. Hooper patient need to be evaluated by general surgery for possible surgical drainage and removal of possible infected mesh this has been explained to the patient in layman terms in the presence of the patient nurse for now we will continue the patient on Zosyn, as the local culture growing gram-negative, apparently final culture were faxed but was not in the patient chart, RN mention it has been sent down for scanning into the patient chart however they're not available for viewing to me at this point Time with Patient: Less than 30
[2022-10-09 16:00] LABS: Glucose,Whole Blood 192 mg/dL (70-110)
[2022-10-09] MEDS: LORazepam 2 MG/ML INJ IV PRN ×2 (18:24→23:53)
[2022-10-09 21:20] LABS: Glucose,Whole Blood 182 mg/dL (70-110)
[2022-10-09] MEDS: ATORVASTATIN 10 MG TAB PO SCH (21:31)
[2022-10-10 05:55] LABS: Glucose,Whole Blood 257 mg/dL (70-110)
[2022-10-10] MEDS: INSULIN ASPART (NovoLOG) 100 UNIT/ML VIAL SQ SCH ×4 (06:31→21:29)
[2022-10-10] MEDS: PIOGLITAZONE 15 MG TAB PO SCH (08:07)
[2022-10-10] MEDS: lisinopriL 20 MG TAB PO SCH (08:07)
[2022-10-10] MEDS: FUROSEMIDE 20 MG TAB PO SCH (08:07)
[2022-10-10] MEDS: allopurinoL 100 MG TAB PO SCH (08:07)
[2022-10-10] MEDS: DAPAGLIFLOZIN PROPANEDIOL 10 MG TABLET PO SCH (08:07)
[2022-10-10] MEDS: SEVELAMER 800 MG TAB PO SCH (08:08)
[2022-10-10] MEDS: metFORMIN 500 MG TAB PO SCH ×2 (08:08→21:29)
[2022-10-10] MEDS: ENOXAPARIN 40 MG/0.4 ML SYRINGE SQ SCH (08:08)
[2022-10-10] MEDS: FAMOTIDINE 20 MG TAB PO SCH ×2 (08:08→21:29)
[2022-10-10] MEDS: LINAGLIPTIN 5 MG TABLET PO SCH (08:08)
[2022-10-10] MEDS: PREGABALIN 100 MG CAP PO SCH ×3 (08:08→21:28)
[2022-10-10] MEDS: HYDROcodone/APAP 7.5-325MG 1 EACH TAB PO SCH ×3 (08:11→21:28)
[2022-10-10] MEDS: PIPERACILLIN-TAZOBACTAM 3.375 GM in SODIUM CHLORIDE 0.9% 100 ML IVPB SCH ×2 (08:13→15:43)
[2022-10-10] MEDS: LORazepam 2 MG/ML INJ IV PRN ×2 (08:18→21:30)
--- NOTE | 2022-10-10 10:34 | P.GSCN ---
History of Present Illness Consult date: 10/10/22 Reason for Consult: abdominal wall abscess History of present illness: Presented to the ER with draining abdominal wound. In October of 2021, he underwent robotic ventral hernia repair by Dr. Coy. He developed an incisional hernia & underwent open repair on 07/01/2022 with omentectomy & placement of onlay Prolene mesh. After griselda were removed, he had skin dehiscence at the lower aspect of the incision. Was seen in the ER for this on 07/21 & was discharged home. Was then seen at [facility] from 08/21-08/26 for wound problems. Refused to see Dr. Gunderson at this visit. Wound was aspirated at bedside by Dr. Devi & was ultimately discharged home. Returned to [facility] on 10/01 for draining wound. Stated his wound opened up & copious amounts of fluid were drained. CT on 10/02 revealed 11.6x5.8x12.7cm abdominal wall fluid collection. Had an IR drain placed but "fell out" while he was sleeping. Repeat CT 10/08 showed minor improvement in abscess, measuring 10.5x12.5x4.8cm. No leukocytosis on admission, sugars not well controlled. Preliminary cultures show GNB; no sensitivities returned. Seen & evaluated this morning. Very frustrated & combative, argumentative & yelling at me for most of visit. He does not want surgery, does not want another drain. When trying to explain his situation & how to heal, he states "I don't trust any of you doctors." Also angry he doesn't have more detailed micro results back yet. When trying to explain to him it can take some time, he proceeds to tell me "We don't care about him & are keeping information from him." Tried telling him about the results we have, he reiterated the prior conversation. Adamant that he will not have another surgery, nor does he want another drain. We also discussed we can't force him to stay here but he'd be leaving against medical advice. He is angry & just wants to go home. Review of Systems - Constitutional Reports as per HPI - Cardiovascular Reports as per HPI - Respiratory Reports as per HPI - Gastrointestinal Reports as per HPI - Genitourinary Reports as per HPI - Musculoskeletal Reports as per HPI - Integumentary Reports as per HPI - Neurological Reports as per HPI - Psychiatric Reports as per HPI - Endocrine Reports as per HPI Past Medical History Past Medical History: Diabetes Mellitus, Hyperlipidemia, Hypertension Additional Past Medical History / Comment(s): STATES SORE ON THE BOTTOM OF LEFT FOOT. History of Any Multi-Drug Resistant Organisms: None Reported Past Surgical History: Hernia Repair Past Anesthesia/Blood Transfusion Reactions: No Reported Reaction Past Psychological History: Anxiety Smoking Status: Former smoker Past Alcohol Use History: Occasional Additional Past Alcohol Use History / Comment(s): HX OF 1/2 PPD SMOKER. Past Drug Use History: None Reported - Past Family History Mother Family Medical History: Diabetes Mellitus Father Family Medical History: Cancer Medications and Allergies Home Medications Medication Instructions Recorded Confirmed Type Empagliflozin [Jardiance] 25 mg PO DAILY 11/09/21 10/01/22 History HYDROcodone/APAP 7.5-325MG [Bergoo 1 tab PO TID 11/09/21 10/01/22 History 7.5-325] Pregabalin 200 mg PO TID 11/09/21 10/01/22 History Simvastatin [Zocor] 20 mg PO HS 11/09/21 10/01/22 History lisinopriL [Zestril] 20 mg PO DAILY 11/09/21 10/01/22 History sitaGLIPtin [Januvia] 100 mg PO DAILY 11/09/21 10/01/22 History Famotidine 20 mg PO BID 07/01/22 10/01/22 History Furosemide [Lasix] 20 mg PO DAILY 07/01/22 10/01/22 History Pioglitazone [Actos] 15 mg PO DAILY 07/01/22 10/01/22 History Sevelamer [Renvela] 800 mg PO DAILY 07/01/22 10/01/22 History Terbinafine [LamISIL] 250 mg PO DAILY 07/01/22 10/01/22 History Ergocalciferol [Vitamin D2 (1250 1,250 mcg PO Q7D 10/01/22 10/01/22 History Mcg = 59877 Iu)] allopurinoL 100 mg PO DAILY 10/01/22 10/01/22 History metFORMIN HCL 1,000 mg PO BID 10/01/22 10/01/22 History Allergies Allergy/AdvReac Type Severity Reaction Status Date / Time No Known Allergies Allergy Verified 10/01/22 11:23 Surgical - Exam Vital Signs Temp Pulse Resp BP Pulse Ox 97.5 F L 84 18 150/77 95 10/01/22 09:08 10/01/22 09:08 10/01/22 09:08 10/01/22 09:08 10/01/22 09:08 - General well developed, well nourished, no distress, no pain - Eyes no icteric - ENT normal mucosa, no hearing loss, poor fdc - Neck supple - Respiratory normal expansion, normal respiratory effort - Cardiovascular Rhythm: regular - Abdomen well healing lateral robotic incisions, midline incision with areas of open wounds & induration near the midportion of incision and lower aspect of incision, no active drainage Abdomen: soft, non tender, no guarding, no rigid, no rebound, no distended - Integumentary warm & dry, no diaphoresis - Neurologic no gross deficits combative - Musculoskeletal no LE edema - Psychiatric combative, argumentative, pressured speech Results - Labs 10/09/22 06:52 10/09/22 06:52 Abnormal Lab Results - Last 24 Hours (Table) 10/09/22 10/09/22 10/09/22 Range/Units 11:08 15:59 21:18 POC Glucose (mg/dL) 267 H 192 H 182 H (70-110) mg/dL 10/10/22 Range/Units 05:53 POC Glucose (mg/dL) 257 H (70-110) mg/dL Assessment and Plan Assessment: abdominal wall abscess s/p bedside aspiration 08/19 s/p open incisional hernia repair with mesh 07/01 ([facility]) s/p robotic ventral hernia repair ([facility]) Plan: Appropriate surgical mgmt at this time is an IR drain with follow up CT in about 6 weeks; would likely need home health care to help with drain mgmt. ID to recommend antibiotics & duration but may need longer term antibiotics if there is a true mesh infection. Unfortunately, not sure how well he will tolerate a PICC line or have assistance for administration. Nor will he probably be amendable to rehab placement for antibiotics. DM is uncontrolled & is a poor operative candidate with high risk of further post-op complications. If needs me sh explanation, would recommend transfer to tertiary care center. At this time, no indication for surgical intervention. Should follow with PCP & operating surgeon; if refuses to see operating surgeon, needs referral to surgeon at tertiary care center.
[2022-10-10 10:45] LABS: Glucose,Whole Blood 164 mg/dL (70-110)
--- NOTE | 2022-10-10 15:46 | P.PN ---
Subjective Progress Note Date: 10/10/22 Principal diagnosis: Abdominal wound infection Patient is a 51-year-old male with a past medical history significant for open repair of incarcerated incisional hernia and partial omonectomy that was done on 07/01/2022,, subsequently presented to hospital with nonhealing a bdominal wound drainage concerning for wound infection patient is status post IR drainage of the fluid collection along with drainage catheter placement on 10/03/2022 On today's evaluation that is 10/10/2022, the patient continues to be afebrile, the patient remains to be angry and apparently was angry with the surgeon this morning as well patient denies any abdominal pain at this point and is breathing comfortably on room air Objective - Vital Signs Vital signs: Vital Signs Temp 97.7 F 10/10/22 07:30 Pulse 81 10/10/22 07:30 Resp 16 10/10/22 07:30 BP 138/76 10/10/22 07:30 Pulse Ox 98 10/10/22 07:30 FiO2 Intake & Output 10/09/22 10/10/22 10/10/22 18:59 06:59 18:59 Other: Voiding Method Toilet # Voids 1 2 - Labs CBC & Chem 7: 10/09/22 06:52 10/09/22 06:52 Labs: Abnormal Lab Results - Last 24 Hours (Table) 10/09/22 10/09/22 10/10/22 Range/Units 15:59 21:18 05:53 POC Glucose (mg/dL) 192 H 182 H 257 H (70-110) mg/dL 10/10/22 Range/Units 10:42 POC Glucose (mg/dL) 164 H (70-110) mg/dL Assessment and Plan (1) Abdominal wall abscess at site of surgical wound Current Visit: Yes Status: Acute Code(s): T81.49XA - INFECTION FOLLOWING A PROCEDURE, OTHER SURGICAL SITE, INIT SNOMED Code(s): 610102846 (2) External incisional dehiscence Current Visit: Yes Status: Acute Code(s): T81.31XA - DISRUPTION OF EXTERNAL OPERATION (SURGICAL) WOUND, NEC, INIT SNOMED Code(s): 338985856664970 Plan: 1patient with a history of open repair of incarcerated incisional hernia partial omentectomy on 07/01/2022 at the patient did have a nonhealing wound to the mid abdominal area since then and apparently did have a multiple admission to the hospital for the same problem patient did not have any fever or elevated white count however he was noticed to have some purulent drainage concerning for cellulitis/wound infection possibly from enteric gram-negative pathogen. 2patient did have CT of abdominal pelvis with oral contrast with evidence of fluid collection status post IR drainage, deep cultures are currently pending superficial cultures are currently growing gram-negative with ID sensitivities still pending as of 10/07/2022, RN has been asked again to call the microlab to get update on cultures 3as the patient drainage catheter has fell off we have to make sure there is complete resolution of underlying fluid collection/abscess for which repeat CT was done with oral contrast and it shows evidence of persistent abscess with slight decrease in size Case has been discussed with Dr. Hooper patient need to be evaluated by general surgery for possible surgical drainage and removal of possible infected mesh this has been explained to the patient in layman terms in the presence of the patient nurse once again as simply drainage of this fluid CT-guided may not solve his problem, Hearing this patient get angry again and wanted to leave the hospital is been told that is his choice for now continue with the Zosyn and may benefit from transfer to tertiary care Time with Patient: Less than 30
[2022-10-10 16:34] LABS: Glucose,Whole Blood 211 mg/dL (70-110)
[2022-10-10 20:33] LABS: Glucose,Whole Blood 196 mg/dL (70-110)
[2022-10-10] MEDS: ATORVASTATIN 10 MG TAB PO SCH (21:29)
[2022-10-11] MEDS: PIPERACILLIN-TAZOBACTAM 3.375 GM in SODIUM CHLORIDE 0.9% 100 ML IVPB SCH ×3 (01:02→17:23)
--- NOTE | 2022-10-11 01:57 | PN ---
PROGRESS NOTE SUBJECTIVE: This is a 51-year-old white male. He has an abscess in his abdomen and he needs infected mesh removed from my previous abdominal surgery. Dr. Gurrola, Dr. Coy and Dr. Ruiz nobody will remove the infected mesh per Dr. Mendez's recommendation. So, the patient will have to be transferred down, waiting for transfer, Dr. Mendez is working on transfer at this time. OBJECTIVE: CARDIOVASCULAR: S1, S2. LUNGS: Clear. PSYCH: Very anxious to nervous, very upset. ASSESSMENT AND PLAN: Abscess, abdominal fluid collection, infected mesh in the abdomen. Final cultures are back. [facility], Dr. Mendez is working on it at this point. Continue current treatment. All questions were discussed with the and the patient. MMODL / IJN: [id number] /
[2022-10-11 05:41] LABS: Glucose,Whole Blood 260 mg/dL (70-110)
[2022-10-11 06:42] LABS: Basophils % (A) 1 %; Eosinophils # (A) 0.1 k/uL (0-0.7); Eosinophils % (A) 2 %; HCT 43.7 % (39.0-53.0); Lymphocytes % (A) 17 %; MCH 32.4 pg (25.0-35.0); MCHC 32.2 g/dL (31.0-37.0); MCV 100.7 fL (80.0-100.0); Mean Platelet Volume 8.4; Monocytes # (A) 0.5 k/uL (0-1.0); Monocytes % (A) 8 %; Neutrophils # (A) 4.2 k/uL (1.3-7.7); Neutrophils % (A) 70 %; Platelet Count 224 k/uL (150-450); RBC 4.34 m/uL (4.30-5.90); RDW 12.7 % (11.5-15.5)
[2022-10-11] MEDS: INSULIN ASPART (NovoLOG) 100 UNIT/ML VIAL SQ SCH ×4 (06:43→21:45)
[2022-10-11 06:54] LABS: ALT 40 U/L (4-49); AST 24 U/L (17-59); African American GFR (CKD) 83 (>60 ml/min/1.73 sqM); Albumin 3.8 g/dL (3.5-5.0); Albumin/Globulin Ratio 1.3; Alkaline Phosphatase 72 U/L (38-126); Anion Gap 8 mmol/L; Blood Urea Nitrogen 26 mg/dL (9-20); Calcium 9.3 mg/dL (8.4-10.2); Carbon Dioxide 23 mmol/L (22-30); Chloride 106 mmol/L (98-107); Globulin 2.9 g/dL; Glucose 200 mg/dL (74-99); Non-African American GFR(CKD) 72 (>60 ml/min/1.73 sqM); Potassium 4.4 mmol/L (3.5-5.1); Sodium 137 mmol/L (137-145); Total Bilirubin 0.3 mg/dL (0.2-1.3); Total Protein 6.7 g/dL (6.3-8.2)
[2022-10-11] MEDS: ENOXAPARIN 40 MG/0.4 ML SYRINGE SQ SCH (08:40)
[2022-10-11] MEDS: HYDROcodone/APAP 7.5-325MG 1 EACH TAB PO SCH ×3 (08:49→21:45)
[2022-10-11] MEDS: FAMOTIDINE 20 MG TAB PO SCH ×2 (08:50→21:44)
[2022-10-11] MEDS: PREGABALIN 100 MG CAP PO SCH ×3 (08:50→21:44)
[2022-10-11] MEDS: lisinopriL 20 MG TAB PO SCH (08:50)
[2022-10-11] MEDS: LINAGLIPTIN 5 MG TABLET PO SCH (08:50)
[2022-10-11] MEDS: allopurinoL 100 MG TAB PO SCH (08:50)
[2022-10-11] MEDS: FUROSEMIDE 20 MG TAB PO SCH (08:50)
[2022-10-11] MEDS: metFORMIN 500 MG TAB PO SCH ×2 (08:50→21:44)
[2022-10-11] MEDS: DAPAGLIFLOZIN PROPANEDIOL 10 MG TABLET PO SCH (08:51)
[2022-10-11] MEDS: PIOGLITAZONE 15 MG TAB PO SCH (08:51)
[2022-10-11] MEDS: SEVELAMER 800 MG TAB PO SCH (08:51)
[2022-10-11] MEDS: LORazepam 2 MG/ML INJ IV PRN ×3 (08:59→22:39)
[2022-10-11 10:16] LABS: Glucose,Whole Blood 180 mg/dL (70-110)
[2022-10-11 11:37] LABS: Glucose,Whole Blood 186 mg/dL (70-110)
[2022-10-11] MEDS ORDERED: DAPTOmycin 500 MG in SODIUM CHLORIDE 0.9% 50 ML IVPB SCH (14:00)
--- NOTE | 2022-10-11 15:32 | P.PN ---
Subjective Progress Note Date: 10/11/22 Principal diagnosis: Abdominal wound infection Patient is a 51-year-old male with a past medical history significant for open repair of incarcerated incisional hernia and partial omonectomy that was done on 07/01/2022,, subsequently presented to hospital with nonhealing a bdominal wound drainage concerning for wound infection patient is status post IR drainage of the fluid collection along with drainage catheter placement on 10/03/2022 On today's evaluation that is 10/11/2022, the patient remains to be afebrile, the patient seemed to be more calmer today, denies any chest pain shortness of breath or cough no nausea no vomiting no abdominal pain that he has been insi sting on going home Objective - Vital Signs Vital signs: Vital Signs Temp 97.7 F 10/11/22 06:55 Pulse 80 10/11/22 08:50 Resp 16 10/11/22 08:50 BP 115/70 10/11/22 06:55 Pulse Ox 96 10/11/22 06:55 FiO2 Intake & Output 10/10/22 10/11/22 10/11/22 18:59 06:59 18:59 Other: Voiding Method Toilet Toilet Toilet # Voids 5 2 # Bowel Movements 1 - Exam GENERAL DESCRIPTION: Middle-aged male lying in bed in no distress RESPIRATORY SYSTEM: Unlabored breathing , decreased breath sounds at bases HEART: S1 S2 regular rate and rhythm , ABDOMEN: Soft , midline abdominal wound with no significant slough tissue or surrounding redness minimal drainage on the dressing EXTREMITIES: No edema feet - Labs CBC & Chem 7: 10/11/22 06:15 10/11/22 06:15 Labs: Abnormal Lab Results - Last 24 Hours (Table) 10/10/22 10/10/22 10/11/22 Range/Units 16:33 20:29 05:39 MCV (80.0-100.0) fL BUN (9-20) mg/dL Glucose (74-99) mg/dL POC Glucose (mg/dL) 211 H 196 H 260 H (70-110) mg/dL 10/11/22 10/11/22 10/11/22 Range/Units 06:15 06:15 10:15 MCV 100.7 H (80.0-100.0) fL BUN 26 H (9-20) mg/dL Glucose 200 H (74-99) mg/dL POC Glucose (mg/dL) 180 H (70-110) mg/dL Assessment and Plan (1) Abdominal wall abscess at site of surgical wound Current Visit: Yes Status: Acute Code(s): T81.49XA - INFECTION FOLLOWING A PROCEDURE, OTHER SURGICAL SITE, INIT SNOMED Code(s): 519103853 (2) External incisional dehiscence Current Visit: Yes Status: Acute Code(s): T81.31XA - DISRUPTION OF EXTERNAL OPERATION (SURGICAL) WOUND, NEC, INIT SNOMED Code(s): 017736462492119 Plan: 1patient with a history of open repair of incarcerated incisional hernia partial omentectomy on 07/01/2022 at the patient did have a nonhealing wound to the mid abdominal area since then and apparently did have a multiple admission to the hospital for the same problem patient did not have any fever or elevated white count however he was noticed to have some purulent drainage concerning for cellulitis/wound infection possibly from enteric gram-negative pathogen. 2patient did have CT of abdominal pelvis with oral contrast with evidence of fluid collection status post IR drainage, deep cultures are currently pending superficial cultures are currently growing gram-negative with ID sensitivities still pending as of 10/07/2022, RN has been asked again to call the microlab to get update on cultures 3as the patient drainage catheter has fell off we have to make sure there is complete resolution of underlying fluid collection/abscess for which repeat CT was done with oral contrast and it shows evidence of persistent abscess with slight decrease in size Case has been discussed with Dr. Hooper patient need to be evaluated by general surgery for possible surgical drainage and removal of possible infected mesh this has been explained to the patient in layman terms in the presence of the patient nurse once again as simply drainage of this fluid CT-guided may not solve his problem, local cultures also growing VRE daptomycin has been added to his Zosyn regimen which will be continued 4-I did call [facility] for transfer the patient for surgical ev aluation all the information was given to the transfer team waiting for call back from them Time with Patient: Less than 30
[2022-10-11 16:37] LABS: Glucose,Whole Blood 224 mg/dL (70-110)
[2022-10-11 21:17] VITALS: RESP 19
[2022-10-11 21:38] LABS: Glucose,Whole Blood 172 mg/dL (70-110)
[2022-10-12 01:46] VITALS: BP 103/61; PULSE 65; TEMP 97.6
[2022-10-12] MEDS: PIPERACILLIN-TAZOBACTAM 3.375 GM in SODIUM CHLORIDE 0.9% 100 ML IVPB SCH (03:05)
[2022-10-14] MEDS ORDERED: ERGOCALCIFEROL 1,250 MCG (50,000 IU) CAPSULE PO SCH (09:00)
== END 2022-10-12 02:30 | disposition short-term general hospital (02) | DRG 721 ==
LOC: EC 09:07 → 4SSUR 11:43
PROVIDERS: ADMIT Family Medicine; ATTEND Family Medicine
PROC: 0W9F30Z Drainage of Abdominal Wall with Drainage Device, Percutaneous Approach (ICD-10-PCS; principal; 2022-10-03)
DX: T85.79XA Infection and inflammatory reaction due to other internal prosthetic devices, implants and grafts, initial encounter (principal); T81.30XA Disruption of wound, unspecified, initial encounter; L02.211 Cutaneous abscess of abdominal wall; Y83.2 Surgical operation with anastomosis, bypass or graft as the cause of abnormal reaction of the patient, or of later complication, without mention of misadventure at the time of the procedure; M10.9 Gout, unspecified; E11.65 Type 2 diabetes mellitus with hyperglycemia; Z79.84 Long term (current) use of oral hypoglycemic drugs; E66.9 Obesity, unspecified; Z68.31 Body mass index [BMI] 31.0-31.9, adult; F41.9 Anxiety disorder, unspecified; D64.9 Anemia, unspecified; E78.5 Hyperlipidemia, unspecified; I11.0 Hypertensive heart disease with heart failure; I50.9 Heart failure, unspecified; R18.8 Other ascites; Z79.899 Other long term (current) drug therapy; Z83.3 Family history of diabetes mellitus; Z71.3 Dietary counseling and surveillance; Z28.310 Unvaccinated for COVID-19; Z28.21 Immunization not carried out because of patient refusal; Z20.822 Contact with and (suspected) exposure to COVID-19; Z87.891 Personal history of nicotine dependence
CPT/HCPCS: 10030; 36415; 74150; 74176; 76700; 76942; 80053; 82140; 83036; 83735; 84100; 85025; 85610; 85730; 86140; 87040; 87070; 87075; 87205; 87635; 96374; 99284

== ENCOUNTER 2023-02-04 19:34 | Inpatient (IN) | payer OTHER ==
--- NOTE | 2023-02-04 19:48 | ED ---
General Adult HPI - General Source: patient, RN notes reviewed Mode of arrival: ambulatory Limitations: no limitations <Chang Man - Last Filed: 02/04/23 19:46> - General Source: RN notes reviewed, old records reviewed Limitations: no limitations - History of Present Illness -: days(s) Radiation: non-radiation Severity scale (1-10): 6 Quality: aching Consistency: constant Improves with: none Worsens with: none Associated Symptoms: loss of appetite, nausea/vomiting, weakness, other (BL LE edema, malodorous) Treatments Prior to Arrival: none <Josh Mcarthur - Last Filed: 02/10/23 13:19> - General Stated complaint: Fluid retention in legs and turning black Time Seen by Provider: 02/04/23 19:47 - History of Present Illness Initial comments: 52-year-old male presents emergency Department with multiple complaints. Primary complaint is leg swelling, discoloration of his lower extremities. Patient states that he has been she's with swelling is unsure why he has swelling he denies CHF denies liver failure. Patient states that it's his legs are getting worse over the last 7-10 days. (Chang Man) This is a 52-year-old male to the emergency department for evaluation today. Patient presents today for evaluation of severe lower extremity swelling abdominal pain significantly malodorous discharge. Patient states he did try to take care of his mother at home but his symptoms are is getting significantly worse with weakness overall not feeling well. Patient does appear to be a poor story and just in conversation unsure of underlying reason (Josh Mcarthur) - Related Data Home Medications Medication Instructions Recorded Confirmed Empagliflozin [Jardiance] 25 mg PO DAILY 11/09/21 02/05/23 HYDROcodone/APAP 7.5-325MG [[place] 1 tab PO TID 11/09/21 02/05/23 7.5-325] Pregabalin 200 mg PO TID 11/09/21 02/05/23 Simvastatin [Zocor] 20 mg PO HS 11/09/21 02/05/23 lisinopriL [Zestril] 20 mg PO DAILY 11/09/21 02/05/23 sitaGLIPtin [Januvia] 100 mg PO DAILY 11/09/21 02/05/23 Famotidine 20 mg PO BID 07/01/22 02/05/23 Furosemide [Lasix] 20 mg PO DAILY 07/01/22 02/05/23 Sevelamer [Renvela] 800 mg PO DAILY 07/01/22 02/05/23 Ergocalciferol [Vitamin D2 (1250 1,250 mcg PO Q7D 10/01/22 02/05/23 Mcg = 04515 Iu)] metFORMIN HCL 1,000 mg PO BID 10/01/22 02/05/23 Glimepiride [Amaryl] 1 mg PO AC-BRKFST 02/05/23 02/05/23 Terbinafine [LamISIL] 250 mg PO DAILY 02/05/23 02/05/23 Allergies Allergy/AdvReac Type Severity Reaction Status Date / Time No Known Allergies Allergy Verified 02/05/23 09:01 Review of Systems ROS Other: All systems not noted in ROS Statement are negative. <Chang Man - Last Filed: 02/04/23 19:46> ROS Other: All systems not noted in ROS Statement are negative. <Josh Mcarthur - Last Filed: 02/10/23 13:19> ROS Statement: Those systems with pertinent positive or pertinent negative responses have been documented in the HPI. Past Medical History Past Medical History: Diabetes Mellitus, Hyperlipidemia, Hypertension Additional Past Medical History / Comment(s): STATES SORE ON THE BOTTOM OF LEFT FOOT. History of Any Multi-Drug Resistant Organisms: VRE Date of last positivie culture/infection: 10/02/22 MDRO Source:: Abdomen Past Surgical History: Hernia Repair Past Anesthesia/Blood Transfusion Reactions: No Reported Reaction Additional Past Anesthesia/Blood Transfusion Reaction / Comment(s): PT HAS NEVER RECEIVED ANESTHESIA. Past Psychological History: Anxiety Smoking Status: Former smoker Past Alcohol Use History: Occasional Additional Past Alcohol Use History / Comment(s): HX OF 1/2 PPD SMOKER. Past Drug Use History: None Reported - Past Family History Mother Family Medical History: Diabetes Mellitus Father Family Medical History: Cancer <Chang Man - Last Filed: 02/04/23 19:46> General Exam General appearance: alert, in no apparent distress <Chang Man - Last Filed: 02/04/23 19:46> General appearance: alert, in no apparent distress Head exam: Present: atraumatic, normocephalic, normal inspection Eye exam: Present: normal appearance, PERRL, EOMI. Absent: scleral icterus, conjunctival injection, periorbital swelling ENT exam: Present: normal exam, mucous membranes moist Neck exam: Present: normal inspection. Absent: tenderness, meningismus, lymphadenopathy Respiratory exam: Present: normal lung sounds bilaterally. Absent: respiratory distress, wheezes, rales, rhonchi, stridor Cardiovascular Exam: Present: regular rate, normal rhythm, normal heart sounds. Absent: systolic murmur, diastolic murmur, rubs, gallop, clicks GI/Abdominal exam: Present: soft, normal bowel sounds. Absent: distended, tenderness, guarding, rebound, rigid Extremities exam: Present: normal inspection, full ROM, normal capillary refill. Absent: tenderness, pedal edema, joint swelling, calf tenderness Back exam: Present: normal inspection Neurological exam: Present: alert, oriented X3, CN II-XII intact Psychiatric exam: Present: normal affect, normal mood Skin exam: Present: warm, dry, intact, normal color. Absent: rash <Josh Mcarthur - Last Filed: 02/10/23 13:19> - General Exam Comments Initial Comments: Visual Physical Exam Vital signs reviewed General: Well-appearing, nontoxic, no acute distress. Head: Normocephalic, atraumatic Eyes: PERRLA, EOMI ENT: Airway patent Chest: Nonlabored breathing Skin: No visual rash, normal skin tone Neuro: Alert and oriented 3 Musculoskeletal: No gross abnormalities (Chang Man) Course <Josh Mcarthur - Last Filed: 02/10/23 13:19> Vital Signs 02/04/23 02/05/23 02/05/23 19:39 02:27 03:24 Temperature 98.7 F Pulse Rate 99 82 88 Respiratory 22 19 19 Rate Blood Pressure 121/67 123/76 130/64 O2 Sat by Pulse 95 98 97 Oximetry - Reevaluation(s) Reevaluation #1: 02/04/23 22:56 Medical records reviewed (Josh Mcarthur) Reevaluation #2: 02/05/23 03:09 Patient symptoms are improving (Josh Mcarthur) Reevaluation #3: 02/05/23 03:09 Patient informed results questions answered (Josh Mcarthur) Reevaluation #4: 02/04/23 22:56 Was pt. sent in by a medical professional or institution (JAVIER Munoz, INSTRUMENT ASSEMBLY SUPERVISOR, urgent care, hospital, or group home...) When possible be specific @ -no Did you speak to anyone other than the patient for history (EMS, parent, family, police, friend...)? What history was obtained from this source @ -no Did you review nursing and triage notes (agree or disagree)? Why? @ -agree Are old charts reviewed (outside hosp., previous admission, EMS record, old EKG, old radiological studies, urgent care reports/EKG's, group home records)? Report findings @ -yes Differential Diagnosis (chest pain, altered mental status, abdominal pain women, abdominal pain men, vaginal bleeding, weakness, fever, dyspnea, syncope, headache, dizziness, GI bleed, back pain, seizure, CVA, palpatations, mental health, musculoskeletal)? @ -prior EKG interpreted by me (3pts min.). @ -yes X-rays interpreted by me (1pt min.). @ -yes CT interpreted by me (1pt min.). @ -yes U/S interpreted by me (1pt. min.). @ -yes What testing was considered but not performed or refused? (CT, X-rays, U/S, labs)? Why? @ -none What meds were considered but not given or refused? Why? @ -none Did you discuss the management of the patient with other professionals (professionals i.e. JAVIER Munoz, INSTRUMENT ASSEMBLY SUPERVISOR, lab, RT, psych nurse, clinical social worker, manager pipeline, teacher, certified juvenile probation officer, disability case manager)? Give summary @ -no Was smoking cessation discussed for >3mins.? @ -no Was critical care preformed (if so, how long)? @ -no Were there social determinants of health that impacted care today? How? (Homelessness, low income, unemployed, alcoholism, drug addiction, transportation, low edu. Level, literacy, decrease access to med. care, senior care, re hab)? @ -none Was there de-escalation of care discussed even if they declined (Discuss DNR or withdrawal of care, Hospice)? DNR status @ -no What co-morbidities impacted this encounter? (DM, HTN, Smoking, COPD, CAD, Cancer, CVA, ARF, Chemo, Hep., AIDS, mental health diagnosis, sleep apnea, morbid obesity)? @ -none Was patient admitted / discharged? Hospital course, mention meds given and route, prescriptions, significant lab abnormalities, going to OR and other pertinent info. @ - 52 male who presents emergency for today for evaluation of severe lower extremity edema does have significant lower extremity edema cellulitis significant malodorous drainage and discharge. Patient be admitted for IV antibiotics, wound care infectious disease. Patient has no acute abdominal issues going on a computed tomography scan is improving to negative Admitted Undiagnosed new problem with uncertain prognosis? @ -no Drug Therapy requiring intensive monitoring for toxicity (Heparin, Nitro, Insulin, Cardizem)? @ -no Were any procedures done? @ -no Diagnosis/symptom? @ -Severe lower extremity cellulitis with drainage and malodorous discharge Acute, or Chronic, or Acute on Chronic? @ -Acute Uncomplicated (without systemic symptoms) or Complicated (systemic symptoms)? @ -Complicated Side effects of treatment? @ -no Exacerbation, Progression, or Severe Exacerbation? @ -exacerbation Poses a threat to life or bodily function? How? (Chest pain, [place], [place], pneumonia, PE, COPD, DKA, ARF, appy, cholecystitis, CVA, Diverticulitis, Homicidal, Suicidal, threat to staff... and all critical care pts) @ -yes severe complicating comorbid conditions (Josh Mcarthur) - Consultations Consultation #1: spoke w Dr Coy who no longer has contact with this patient (Josh Mcarthur) Consultation #2: Spoke with Dr. Hooper who agrees to admit this patient (Josh Mcarthur) Medical Decision Making <Chang Man - Last Filed: 02/04/23 19:46> - Lab Data Result diagrams: 02/09/23 04:27 02/09/23 04:27 - Radiology Data Radiology results: pending (Ultrasound lower extremity pending), report reviewed (CT head and pelvis is negative for acute disease x-ray tib-fib bilateral lower extremity is negative for acute disease, ultrasound lower extremity is negative for DVT), image reviewed <Josh Mcarthur - Last Filed: 10/16/23 13:19> - Medical Decision Making I performed a completed note portion of this chart signed Chang Man PA-C (Chang Man) 52 male who presents emergency for today for evaluation of severe lower extremity edema does have significant lower extremity edema cellulitis significant malodorous drainage and discharge. Patient be admitted for IV antibiotics, wound care infectious disease. Patient has no acute abdominal issues going on a computed tomography scan is improving to negative (Josh Mcarthur) - Lab Data Lab Results 02/04/23 02/04/23 02/04/23 Range/Units 21:24 21:24 21:24 WBC 10.3 (3.8-10.6) k/uL RBC 4.43 (4.30-5.90) m/uL Hgb 14.5 (13.0-17.5) gm/dL Hct 43.9 (39.0-53.0) % MCV 99.1 (80.0-100.0) fL MCH 32.6 (25.0-35.0) pg MCHC 33.0 (31.0-37.0) g/dL RDW 13.1 (11.5-15.5) % Plt Count 264 (150-450) k/uL MPV 7.4 Neutrophils % 72 % Lymphocytes % 13 % Monocytes % 7 % Eosinophils % 5 % Basophils % 0 % Neutrophils # 7.4 (1.3-7.7) k/uL Lymphocytes # 1.4 (1.0-4.8) k/uL Monocytes # 0.7 (0-1.0) k/uL Eosinophils # 0.5 (0-0.7) k/uL Basophils # 0.0 (0-0.2) k/uL ESR (0-20) mm/Hr Sodium 135 L (137-145) mmol/L Potassium 4.7 (3.5-5.1) mmol/L Chloride 99 (98-107) mmol/L Carbon Dioxide 25 (22-30) mmol/L Anion Gap 11 mmol/L BUN 19 (9-20) mg/dL Creatinine 1.07 (0.66-1.25) mg/dL Est GFR (CKD-EPI)AfAm >90 (>60 ml/min/1.73 sqM) Est GFR (CKD-EPI)NonAf 79 (>60 ml/min/1.73 sqM) Glucose 119 H (74-99) mg/dL Plasma Lactic Acid Juan 1.3 (0.7-2.0) mmol/L Calcium 9.2 (8.4-10.2) mg/dL Phosphorus (2.5-4.5) mg/dL Magnesium 2.4 H (1.6-2.3) mg/dL Total Bilirubin 0.3 (0.2-1.3) mg/dL AST 22 (17-59) U/L ALT 23 (4-49) U/L Alkaline Phosphatase 86 (38-126) U/L C-Reactive Protein (<1.0) mg/dL NT-Pro-B Natriuret Pep 332 pg/mL Total Protein 6.7 (6.3-8.2) g/dL Albumin 3.6 (3.5-5.0) g/dL Salicylates mg/dL Acetaminophen ug/mL Serum Alcohol mg/dL 02/04/23 02/04/23 Range/Units 23:14 23:14 WBC (3.8-10.6) k/uL RBC (4.30-5.90) m/uL Hgb (13.0-17.5) gm/dL Hct (39.0-53.0) % MCV (80.0-100.0) fL MCH (25.0-35.0) pg MCHC (31.0-37.0) g/dL RDW (11.5-15.5) % Plt Count (150-450) k/uL MPV Neutrophils % % Lymphocytes % % Monocytes % % Eosinophils % % Basophils % % Neutrophils # (1.3-7.7) k/uL Lymphocytes # (1.0-4.8) k/uL Monocytes # (0-1.0) k/uL Eosinophils # (0-0.7) k/uL Basophils # (0-0.2) k/uL ESR 43 H (0-20) mm/Hr Sodium (137-145) mmol/L Potassium (3.5-5.1) mmol/L Chloride (98-107) mmol/L Carbon Dioxide (22-30) mmol/L Anion Gap mmol/L BUN (9-20) mg/dL Creatinine (0.66-1.25) mg/dL Est GFR (CKD-EPI)AfAm (>60 ml/min/1.73 sqM) Est GFR (CKD-EPI)NonAf (>60 ml/min/1.73 sqM) Glucose (74-99) mg/dL Plasma Lactic Acid Juan (0.7-2.0) mmol/L Calcium (8.4-10.2) mg/dL Phosphorus 5.0 H (2.5-4.5) mg/dL Magnesium (1.6-2.3) mg/dL Total Bilirubin (0.2-1.3) mg/dL AST (17-59) U/L ALT (4-49) U/L Alkaline Phosphatase (38-126) U/L C-Reactive Protein 4.7 H (<1.0) mg/dL NT-Pro-B Natriuret Pep pg/mL Total Protein (6.3-8.2) g/dL Albumin (3.5-5.0) g/dL Salicylates <1.0 mg/dL Acetaminophen <10.0 ug/mL Serum Alcohol 16 mg/dL Disposition <Chang Man - Last Filed: 02/04/23 19:46> Is patient prescribed a controlled substance at d/c from ED?: No Time of Disposition: 03:00 <Josh Mcarthur - Last Filed: 02/10/23 13:19> Clinical Impression: Diabetic ulcer of right foot associated with diabetes mellitus due to underlying condition, with fat layer exposed, Diabetic ulcer of left foot associated with diabetes mellitus due to underlying condition, with fat layer exposed, Abdominal pain, Weakness, Cellulitis Disposition: ADMITTED IP TO THIS HOSP Condition: Serious
[2023-02-04 21:33] LABS: Basophils % (A) 0 %; Eosinophils # (A) 0.5 k/uL (0-0.7); Eosinophils % (A) 5 %; HCT 43.9 % (39.0-53.0); HGB 14.5 gm/dL (13.0-17.5); Lymphocytes # (A) 1.4 k/uL (1.0-4.8); Lymphocytes % (A) 13 %; MCH 32.6 pg (25.0-35.0); MCV 99.1 fL (80.0-100.0); Mean Platelet Volume 7.4; Monocytes # (A) 0.7 k/uL (0-1.0); Monocytes % (A) 7 %; Neutrophils # (A) 7.4 k/uL (1.3-7.7); Neutrophils % (A) 72 %; Platelet Count 264 k/uL (150-450); RBC 4.43 m/uL (4.30-5.90); RDW 13.1 % (11.5-15.5); WBC 10.3 k/uL (3.8-10.6)
[2023-02-04 21:58] LABS: ALT 23 U/L (4-49); AST 22 U/L (17-59); African American GFR (CKD) >90 (>60 ml/min/1.73 sqM); Albumin 3.6 g/dL (3.5-5.0); Alkaline Phosphatase 86 U/L (38-126); Anion Gap 11 mmol/L; Blood Urea Nitrogen 19 mg/dL (9-20); Calcium 9.2 mg/dL (8.4-10.2); Carbon Dioxide 25 mmol/L (22-30); Chloride 99 mmol/L (98-107); Glucose 119 mg/dL (74-99); Magnesium 2.4 mg/dL (1.6-2.3); Non-African American GFR(CKD) 79 (>60 ml/min/1.73 sqM); Potassium 4.7 mmol/L (3.5-5.1); Sodium 135 mmol/L (137-145); Total Bilirubin 0.3 mg/dL (0.2-1.3); Total Protein 6.7 g/dL (6.3-8.2)
[2023-02-04 22:06] LABS: NT-Pro-B-Type Natriuretic Pept 332 pg/mL
[2023-02-04] MEDS ORDERED: SODIUM CHLORIDE 0.9% 1,000 ML IV STA (22:48)
[2023-02-04 23:32] LABS: Acetaminophen <10.0 ug/mL; Alcohol 16 mg/dL; C Reactive Protein 4.7 mg/dL (<1.0); Salicylate <1.0 mg/dL
[2023-02-04] MEDS ORDERED: VANCOMYCIN IV PER PHARMACY 1 EACH MISC MISCELLANE PRN (23:37)
--- NOTE | 2023-02-05 00:10 | CT ---
EXAMINATION TYPE: CT abdomen pelvis w con DATE OF EXAM: 02/05/2023 COMPARISON: Prior CT October 08, 2022 HISTORY: OPEN WOUND ANTERIOR ABD. PT IS VERY POOR HISTORIAN. PT STATES HE'S ALLERGIC TO WOUND CENTER' S TAPE & THAT'S WHAT RASH IS FROM CT DLP: 1461 mGycm, Automated Exposure Control for Dose Reduction was Utilized. CONTRAST: CT scan of the abdomen and pelvis is performed with oral and with IV Contrast, patient injected with 100 mL of Isovue 370. FINDINGS: LUNG BASES: No significant abnormality is appreciated. LIVER/GB: Liver remains heterogeneously hypodense consistent with diffuse fatty infiltration. Gallbla dder remains contracted. No biliary dilatation. PANCREAS: No significant abnormality is seen. SPLEEN: No significant abnormality is seen. ADRENALS: Asymmetric slight thickening to the left adrenal gland suggesting hyperplasia is redemonstr ated. KIDNEYS: Symmetric cortical medullary uptake and excretion without hydronephrosis seen bilaterally. A t least partially duplicated left-sided collecting systems are noted. Mild distention of bladder BOWEL: No significant abnormality is seen. GENITAL ORGANS: No gross abnormality seen. LYMPH NODES: No greater than 1cm abdominal or pelvic lymph nodes are appreciated. OSSEOUS STRUCTURES: No significant abnormality is seen. OTHER: [id number] calcified plaque of the aorta extends into branch vessels. Mild to moderate subcutaneous edema over the bilateral thigh muscles on current study. There is moder ate ill-defined fluid and fat stranding throughout the anterior wall of the lower abdomen and pelvis redemonstrated. May be tiny residual curvilinear focal fluid collection within the anterior abdominal wall near axial image 56 significantly improved from prior studies. There is extension of the anteri or peritoneal cavity to the skin surface near axial image 52. No definitive hernia defect. IMPRESSION: There is marked improved nearly completely resolved thin-walled fluid collection in the a nterior lower abdominal/upper pelvic wall. Suspect resolving abscess. Surrounding subcutaneous fluid is similar to prior study. New subcutaneous edema in the bilateral thigh region is noted on current s tudy. Correlate for possible soft tissue infection or cellulitis.
--- NOTE | 2023-02-05 00:31 | XR ---
EXAMINATION TYPE: XR tibia fibula bilateral DATE OF EXAM: 02/05/2023 CLINICAL HISTORY: Edema. Bright red swollen rash TECHNIQUE: Two views of the bilateral legs are obtained. COMPARISON: None. FINDINGS: There is no acute fracture or dislocation seen in either tibia or fibula. The bilateral k nee joint show symmetric degenerative change. Ankle joints are preserved. There is fairly moderate di ffuse subcutaneous edema and soft tissue swelling noted bilaterally. No suspicious bony destruction i s seen bilaterally. IMPRESSION: As above.
[2023-02-05] MEDS ORDERED: VANCOMYCIN 1,500 MG in SODIUM CHLORIDE 0.9% 500 ML 500 ML IVPB ONE (01:00)
[2023-02-05] MEDS ORDERED: ONDANSETRON 4 MG/2 ML VIAL IVP PRN (03:07)
[2023-02-05] MEDS ORDERED: MORPHINE SULFATE 4 MG/ML SYRINGE IV PRN (03:07)
[2023-02-05] MEDS ORDERED: HYDROmorphone 0.5 MG/0.5 ML SYRINGE IVP STA (03:07)
[2023-02-05] MEDS ORDERED: NALOXONE 0.4 MG/ML 1 ML VIAL IV PRN (03:07)
--- NOTE | 2023-02-05 05:01 | US ---
EXAM: US Duplex Bilateral Lower Extremities Veins CLINICAL HISTORY: ITS.REASON US Reason: pain TECHNIQUE: Real-time duplex ultrasound scan of the bilateral lower extremity veins integrating B-mode two-dimensional vascular structure, Doppler spectral analysis, color flow Doppler imaging and compression. COMPARISON: No relevant prior studies available. FINDINGS: Right deep veins: Unremarkable. No DVT in the right common femoral, femoral, proximal deep femoral or popliteal veins. The veins demonstrate normal color flow, are normally compressible, with normal phasic flow and/or augmentation response. Right superficial veins: Unremarkable. No thrombus in the visualized right great saphenous vein. Left deep veins: Unremarkable. No DVT in the left common femoral, femoral, proximal deep femoral or popliteal veins. The veins demonstrate normal color flow, are normally compressible, with normal phasic flow and/or augmentation response. Left superficial veins: Unremarkable. No thrombus in the visualized left great saphenous vein. Soft tissues: Soft tissue swelling. Within the left groin is enlarged inguinal lymph node measuring up to 1.5 cm in short axis. IMPRESSION: 1. Normal bilateral lower extremity duplex venous ultrasound. 2. Soft tissue swelling. Within the left groin is enlarged inguinal lymph node measuring up to 1.5 cm in short axis.
[2023-02-05 06:56] LABS: Glucose,Whole Blood 82 mg/dL (70-110)
[2023-02-05] MEDS ORDERED: PANTOPRAZOLE 40 MG/10 ML VIAL IV SCH (09:00)
[2023-02-05] MEDS ORDERED: NYSTAT-TRIAMCIN 100,000-0.1 UNIT/GM-% CREAM 30 GM TUBE TOPICAL SCH (11:30)
[2023-02-05 11:45] LABS: Glucose,Whole Blood 186 mg/dL (70-110)
[2023-02-05] MEDS ORDERED: DEXTROSE 50% SYRINGE 50 ML IVP PRN ×2 (13:00)
[2023-02-05] MEDS: VANCOMYCIN 1,750 MG in SODIUM CHLORIDE 0.9% 500 ML 500 ML IVPB SCH (14:28)
[2023-02-05] MEDS: NYSTATIN 100,000UNIT/GM CREAM 30 GM TUBE TOPICAL SCH ×2 (14:28→22:17)
[2023-02-05] MEDS: TRIAMCINOLONE 0.1% CREAM 80 GM TUBE TOPICAL SCH ×2 (14:28→22:17)
[2023-02-05] MEDS ORDERED: VANCOMYCIN 1,500 MG in SODIUM CHLORIDE 0.9% 500 ML 500 ML IVPB SCH (15:00)
[2023-02-05] MEDS: CEFEPIME 2 GM in SODIUM CHLORIDE 0.9% 100 ML IVPB SCH ×2 (16:44→23:39)
[2023-02-05 16:52] LABS: Glucose,Whole Blood 199 mg/dL (70-110)
[2023-02-05] MEDS: INSULIN ASPART (NovoLOG) 100 UNIT/ML VIAL SQ SCH ×2 (16:52→22:17)
--- NOTE | 2023-02-05 18:24 | CT ---
EXAMINATION TYPE: CT chest wo con CT DLP: 512.5 mGycm, Automated exposure control for dose reduction was used. DATE OF EXAM: 02/05/2023 5:58 PM COMPARISON: None CLINICAL INDICATION:Male, 52 years old with history of pleural effusion; PHH, pleural effusion TECHNIQUE: Multiple axial images were obtained through the chest. Sagittal and coronal reformats were created for review. Contrast used: mL of (None if empty) Oral contrast used: (None if empty) FINDINGS: LUNGS/ PLEURA: No evidence of pleural effusion, focal consolidation or pneumothorax. Mild paraseptal emphysema changes. No greater than 6 mm pulmonary nodules identified. 4 mm nodule near the dome of th e liver series 204 image 26 and has a wedge-shaped on sagittal imaging. AIRWAY: Patent and unremarkable. HEART: Size within normal limits. MEDIASTINUM: No gross evidence of adenopathy. VASCULATURE: No aortic aneurysm. MUSCULOSKELETAL: Moderate disc degeneration changes are present throughout the thoracolumbar spine. N onunion left rib fractures involving left ribs 8 through 10. Incomplete union of ribs 8 9. SOFT TISSUES/LYMPH NODES: Unremarkable. LOWER NECK: No significant findings. UPPER ABDOMEN: No significant findings. IMPRESSION: 1. No pleural effusion. 2. Remote left rib fractures with callus formation. Ribs 8 9 are incomplete union. 3. 4 mm nodular-like opacity near the dome of liver likely representing atelectasis given that was n ot present on prior exam and as a wedge-shaped.
[2023-02-05 21:37] LABS: Glucose,Whole Blood 228 mg/dL (70-110)
[2023-02-05] MEDS: HYDROcodone/APAP 7.5-325MG 1 EACH TAB PO SCH (22:16)
[2023-02-05] MEDS: ATORVASTATIN 10 MG TAB PO SCH (22:16)
[2023-02-05] MEDS: PREGABALIN 100 MG CAP PO SCH (22:16)
[2023-02-05] MEDS: FAMOTIDINE 20 MG TAB PO SCH (22:17)
[2023-02-05] MEDS: metFORMIN 500 MG TAB PO SCH (22:17)
[2023-02-06] MEDS: VANCOMYCIN 1,750 MG in SODIUM CHLORIDE 0.9% 500 ML 500 ML IVPB SCH ×2 (03:35→16:16)
[2023-02-06 05:48] LABS: Glucose,Whole Blood 212 mg/dL (70-110)
[2023-02-06] MEDS: GLIMEPIRIDE 1 MG TAB PO SCH (06:38)
[2023-02-06] MEDS: PANTOPRAZOLE 40 MG TABLET PO SCH (06:38)
[2023-02-06] MEDS: INSULIN ASPART (NovoLOG) 100 UNIT/ML VIAL SQ SCH ×4 (06:39→21:45)
[2023-02-06] MEDS: CEFEPIME 2 GM in SODIUM CHLORIDE 0.9% 100 ML IVPB SCH (08:38)
[2023-02-06] MEDS: FAMOTIDINE 20 MG TAB PO SCH ×2 (08:39→22:16)
[2023-02-06] MEDS: DAPAGLIFLOZIN PROPANEDIOL 10 MG TABLET PO SCH (08:39)
[2023-02-06] MEDS: FUROSEMIDE 20 MG TAB PO SCH (08:39)
[2023-02-06] MEDS: HYDROcodone/APAP 7.5-325MG 1 EACH TAB PO SCH ×3 (08:40→22:14)
[2023-02-06] MEDS: PREGABALIN 100 MG CAP PO SCH ×3 (08:41→22:16)
[2023-02-06] MEDS: metFORMIN 500 MG TAB PO SCH ×2 (08:41→22:16)
[2023-02-06] MEDS: lisinopriL 20 MG TAB PO SCH (08:41)
[2023-02-06] MEDS: SEVELAMER 800 MG TAB PO SCH (08:42)
--- NOTE | 2023-02-06 08:46 | P.CONS ---
History of Present Illness - Reason for Consult Consult date: 02/05/23 - History of Present Illness Patient is a 52-year-old male with a past medical history significant for hypertension hyperlipidemia and diabetes mellitus patient did have a prior umbilical hernia repair subsequently did develop abdominal wall abscess and concerning for mesh infection for the patient was transferred to [facility] patient is not very clear about what he has received apparently he did have removal of the mesh and subsequently local wound care has been treated with a wound VAC patient now mentioning with the application of the wound VAC has developed significant swelling to the lower extremity has also developing redness and itching and did have some superficial ulceration for the patient presented to the hospital patient denies having any fever or any chills he is breathing comfortably on room air no chest pain or shortness with occasional cough no nausea vomiting patient abdominal wound has decreased in size however not completely healed did have significant swelling and erythema to bilateral lower extremity has been complaining of pain to the lower extremity more of sharp 7-8 out of 10 and no radiation and no drainage on presentation to the hospital patient was afebrile he did have a normal white count creatinine 1.07 electrolytes are normal liver exams are normal CRP is 4.7 serum alcohol level was normal patient did have a abdominal pelvis CT marked improvement near complete resolution of the fluid collection in the anterior lower abdominal upper pelvic wall suspected resolving abscess new subcutaneous edema in the bilateral thigh region patient was started on vancomycin infectious disease was consulted for further management of antibiotic therapy Past Medical History Past Medical History: Diabetes Mellitus, Hyperlipidemia, Hypertension Additional Past Medical History / Comment(s): STATES SORE ON THE BOTTOM OF LEFT FOOT. History of Any Multi-Drug Resistant Organisms: VRE Year Discovered:: 10/02/22 MDRO Source:: Abdomen Past Surgical History: Hernia Repair Past Anesthesia/Blood Transfusion Reactions: No Reported Reaction Additional Past Anesthesia/Blood Transfusion Reaction / Comm: PT HAS NEVER RECEIVED ANESTHESIA. Past Psychological History: Anxiety Smoking Status: Former smoker Past Alcohol Use History: Occasional Additional Past Alcohol Use History / Comment(s): HX OF 1/2 PPD SMOKER. Past Drug Use History: None Reported - Past Family History Mother Family Medical History: Diabetes Mellitus Father Family Medical History: Cancer Medications and Allergies Home Medications Medication Instructions Recorded Confirmed Type Empagliflozin [Jardiance] 25 mg PO DAILY 11/09/21 02/05/23 History HYDROcodone/APAP 7.5-325MG [[place] 1 tab PO TID 11/09/21 02/05/23 History 7.5-325] Pregabalin 200 mg PO TID 11/09/21 02/05/23 History Simvastatin [Zocor] 20 mg PO HS 11/09/21 02/05/23 History lisinopriL [Zestril] 20 mg PO DAILY 11/09/21 02/05/23 History sitaGLIPtin [Januvia] 100 mg PO DAILY 11/09/21 02/05/23 History Famotidine 20 mg PO BID 07/01/22 02/05/23 History Furosemide [Lasix] 20 mg PO DAILY 07/01/22 02/05/23 History Sevelamer [Renvela] 800 mg PO DAILY 07/01/22 02/05/23 History Ergocalciferol [Vitamin D2 (1250 1,250 mcg PO Q7D 10/01/22 02/05/23 History Mcg = 87020 Iu)] metFORMIN HCL 1,000 mg PO BID 10/01/22 02/05/23 History Glimepiride [Amaryl] 1 mg PO AC-BRKFST 02/05/23 02/05/23 History Terbinafine [LamISIL] 250 mg PO DAILY 02/05/23 02/05/23 History Allergies Allergy/AdvReac Type Severity Reaction Status Date / Time No Known Allergies Allergy Verified 02/05/23 09:01 Physical Exam Vitals: Vital Signs Temp Pulse Pulse Resp BP BP Pulse Ox 02/05/23 07:37 97.8 F 83 118/57 100 02/05/23 06:19 19 02/05/23 03:24 88 19 130/64 97 02/05/23 02:27 82 19 123/76 98 02/04/23 19:39 98.7 F 99 22 121/67 95 Intake and Output 02/04/23 02/05/23 02/05/23 22:59 06:59 14:59 Intake Total 500 Balance 500 Intake: Intake, IV Titration 500 Amount Vancomycin 1,500 mg In 500 Sodium Chloride 0.9% 500 ml 500 ml @ 167 mls/hr IVPB Q12H [facility] Rx#: [id number] Other: Weight 102.512 kg 102.512 kg Results CBC & Chem 7: 02/06/23 07:47 02/06/23 07:47 Labs: Abnormal Lab Results - Last 24 Hours (Table) 02/04/23 02/04/23 02/04/23 Range/Units 21:24 23:14 23:14 ESR 43 H (0-20) mm/Hr Sodium 135 L (137-145) mmol/L Glucose 119 H (74-99) mg/dL Phosphorus 5.0 H (2.5-4.5) mg/dL Magnesium 2.4 H (1.6-2.3) mg/dL C-Reactive Protein 4.7 H (<1.0) mg/dL Assessment and Plan Plan: 1patient present hospital diffuse swelling and redness to the bilateral lower extremity concerning for cellulitis likely from gram-positive skin cat gram- negative infection less likely diastolic keeping in mind the patient multiple recent hospitalization 2-patient also have a history of abdominal wall abscess with recent CT shows almost resolution. 3patient to continue with the vancomycin we will add cefepime for the gram- negative coverage while waiting for the condition to stabilize. 4local care to the lower extremity dry scaly skin should be washed out with a warm moist washcloth afterwards apply Mycolog cream twice a day then Faustino wrap to keep the swelling down to We will follow on clinical condition and cultures to further adjust medication if needed Thank you for this consultation we will follow the patient along with you Dictation was produced using [employer] dictation software. please excuse any grammatical, word or spelling errors. Time with Patient: Greater than 30
--- NOTE | 2023-02-06 09:59 | US ---
EXAMINATION TYPE: US abdomen complete DATE OF EXAM: 02/06/2023 COMPARISON: NONE CLINICAL INDICATION: Male, 52 years old with history of cirrhosis. Open wound mid/lower abdomen ; TECHNIQUE: Multiple sonographic images of the abdomen are obtained. FINDINGS: EXAM MEASUREMENTS: Liver Length: 19.2 cm Gallbladder Wall: 0.3 cm CBD: 0.3 cm Spleen: 13.2 cm Right Kidney: 12.0 x 5.8 x 4.9 cm Left Kidney: 13.0 x 6.3 x 4.9 cm [employer] SPECIALIST NOTES: *technical limitations due to wound and overlying bowel gas Pancreas: Obscured by bowel gas Liver: slightly enlarged and heterogeneous Gallbladder: no evidence of stones Evidence for sonographic Hi's sign: no CBD: appears wnl Spleen: upper limits of normal Right Kidney: no evidence of hydronephrosis Left Kidney: lobulated contour, no evidence of hydronephrosis Upper IVC: Obscured by overlying bowel gas Abd Aorta: Obscured by overlying bowel gas IMPRESSION: There is enlarged and heterogeneous correlate for underlying hepatocellular disease.
[2023-02-06 11:19] LABS: Basophils # (A) 0.05 X 10*3/uL (0.00-0.10); Basophils % (A) 0.8 %; Eosinophils # (A) 0.47 X 10*3/uL (0.04-0.35); Eosinophils % (A) 7.1 %; HCT 47.6 % (39.6-50.0); Lymphocytes # (A) 0.93 X 10*3/uL (0.90-5.00); Lymphocytes % (A) 14.1 %; MCH 31.5 pg (27.0-32.0); MCHC 31.5 d/dL (32.0-37.0); Mean Platelet Volume 9.4 FL (9.5-12.2); Monocytes # (A) 0.63 X 10*3/uL (0.20-1.00); Monocytes % (A) 9.6 %; NRBC Per 100 WBC 0 X 10*3/uL (0.00-0.01); Neutrophils # (A) 4.47 X 10*3/uL (1.80-7.70); Neutrophils % (A) 67.8 %; Platelet Count 238 X 10*3/uL (140-440); RBC 4.76 X 10*6/uL (4.40-5.60); RDW 13.2 % (11.5-14.5); WBC 6.59 X 10*3/uL (4.50-10.00)
[2023-02-06 11:43] LABS: ALT 22 U/L (10-49); AST 25 U/L (14-35); Albumin 3.5 d/dL (3.8-4.9); Alkaline Phosphatase 83 U/L (41-126); Blood Urea Nitrogen 12.6 mg/dL (9.0-27.0); Carbon Dioxide 23.7 mmol/L (21.6-31.8); Chloride 106 mmol/L (96-109); Globulin 2.7 d/dL (1.6-3.3); Glucose 201 mg/dL (70-110); Magnesium 2.4 mg/dL (1.5-2.4); Phosphorus 3.1 mg/dL (2.4-5.1); Potassium 4.9 mmol/L (3.5-5.5); Sodium 140 mmol/L (135-145); Total Bilirubin <0.2 mg/dL (0.3-1.2); Total Protein 6.2 d/dL (6.2-8.2)
[2023-02-06 11:55] LABS: Glucose,Whole Blood 148 mg/dL (70-110)
[2023-02-06] MEDS: diphenhydrAMINE 25 MG CAP PO PRN ×2 (12:50→22:16)
[2023-02-06] MEDS: NYSTATIN 100,000UNIT/GM CREAM 30 GM TUBE TOPICAL SCH ×2 (12:51→21:45)
[2023-02-06] MEDS: TRIAMCINOLONE 0.1% CREAM 80 GM TUBE TOPICAL SCH ×2 (13:16→21:45)
--- NOTE | 2023-02-06 16:05 | P.PN ---
Subjective Progress Note Date: 02/06/23 Principal diagnosis: Bilateral lower extremity cellulitis and rash Patient is a 52-year-old male with a past medical history significant for hypertension hyperlipidemia and diabetes mellitus patient did have a prior umbilical hernia repair subsequently did develop abdominal wall abscess with abdominal wound treated with a wound VAC now presented to hospital with swelling redness and itching to bilateral lower extremity and consult for possible cellulitis. Patient did have a CT of abdominal pelvis mention near complete resolution of the abdominal wall fluid collection. On today's evaluation that is 02/06/2023, the patient remains to be afebrile the patient is breathing comfortably on room air, the patient denies chest pain and no significant cough or sputum production, patient denies nausea/vomiting and no diarrhea, still have significant swelling redness to bilateral upper extremity and also complaining of itching and rash. Patient did have white count of 6.510, creatinine 0.9 Objective - Vital Signs Vital signs: Vital Signs Temp 97.9 F 02/06/23 07:22 Pulse 79 02/06/23 07:22 Resp 18 02/06/23 08:00 BP 136/73 02/06/23 07:22 Pulse Ox 99 02/06/23 07:22 FiO2 Intake & Output 02/05/23 02/06/23 02/06/23 18:59 06:59 18:59 Intake Total 200 Balance 200 Intake: Oral 200 Other: # Voids 3 - Exam GENERAL DESCRIPTION: Middle-age male up in bed in no distress RESPIRATORY SYSTEM: Unlabored breathing , decreased breath sounds at bases HEART: S1 S2 regular rate and rhythm , ABDOMEN: Soft , no tenderness EXTREMITIES: Bilateral lower extremity with swelling and erythematous rash no drainage - Labs CBC & Chem 7: 02/06/23 07:47 02/06/23 07:47 Labs: Abnormal Lab Results - Last 24 Hours (Table) 02/05/23 02/05/23 02/06/23 Range/Units 16:47 21:36 05:47 MCV (80.0-97.0) FL MCHC (32.0-37.0) d/dL MPV (9.5-12.2) FL Eosinophils # (0.04-0.35) X 10*3/uL Glucose (70-110) mg/dL POC Glucose (mg/dL) 199 H 228 H 212 H (70-110) mg/dL Hemoglobin A1c (<=6.0) % Total Bilirubin (0.3-1.2) mg/dL Albumin (3.8-4.9) d/dL Albumin/Globulin Ratio (1.60-3.17) Ratio 02/06/23 02/06/23 02/06/23 Range/Units 07:47 07:47 07:47 MCV 100.0 H (80.0-97.0) FL MCHC 31.5 L (32.0-37.0) d/dL MPV 9.4 L (9.5-12.2) FL Eosinophils # 0.47 H (0.04-0.35) X 10*3/uL Glucose 201 H (70-110) mg/dL POC Glucose (mg/dL) (70-110) mg/dL Hemoglobin A1c 6.2 H (<=6.0) % Total Bilirubin <0.2 L (0.3-1.2) mg/dL Albumin 3.5 L (3.8-4.9) d/dL Albumin/Globulin Ratio 1.30 L (1.60-3.17) Ratio 02/06/23 Range/Units 11:53 MCV (80.0-97.0) FL MCHC (32.0-37.0) d/dL MPV (9.5-12.2) FL Eosinophils # (0.04-0.35) X 10*3/uL Glucose (70-110) mg/dL POC Glucose (mg/dL) 148 H (70-110) mg/dL Hemoglobin A1c (<=6.0) % Total Bilirubin (0.3-1.2) mg/dL Albumin (3.8-4.9) d/dL Albumin/Globulin Ratio (1.60-3.17) Ratio Assessment and Plan (1) Rash Current Visit: Yes Status: Acute Code(s): R21 - RASH AND OTHER NONSPECIFIC SKIN ERUPTION SNOMED Code(s): 272308980 (2) Cellulitis Current Visit: Yes Status: Acute Code(s): L03.90 - CELLULITIS, UNSPECIFIED SNOMED Code(s): 962641625 (3) Diabetes with skin ulcer Current Visit: No Status: Acute Code(s): E11.622 - TYPE 2 DIABETES MELLITUS WITH OTHER SKIN ULCER; L98.499 - NON-PRESSURE CHRONIC ULCER OF SKIN OF SITES W UNSP SEVERITY SNOMED Code(s): 73201110 Plan: 1patient present hospital diffuse swelling and redness to the bilateral lower extremity concerning for cellulitis likely from gram-positive skin cat gram- negative infection less likely diastolic keeping in mind the patient multiple recent hospitalization 2-patient also have a history of abdominal wall abscess with recent CT shows almost complete resolution. 3local care to the lower extremity dry scaly skin should be washed out with a warm moist washcloth afterwards apply Mycolog cream twice a day then Faustino wrap to keep the swelling down to 4-patient did have extensive rash could be a drug-related will give him a dose of steroids and see clinical response 5continue vancomycin however discontinue cefepime and monitor clinical course closely Dictation was produced using [employer] dictation software. please excuse any grammatical, word or spelling errors. Time with Patient: Less than 30
[2023-02-06 16:46] LABS: Glucose,Whole Blood 168 mg/dL (70-110)
--- NOTE | 2023-02-06 17:48 | P.CONS ---
History of Present Illness - Reason for Consult Consult date: 02/06/23 wound care - History of Present Illness This is a 52-year-old gentleman known to the wound care center who follows with Dr. Vizcaino. Patient has a nonhealing ulceration with fat layer exposure resulting from a surgical wound dehiscence. Patient has been utilizing absorptive silver to the site at the clinic. The wound initially had muscle involvement without necrosis. Original cause of wound was Surgical Injury. The d ate acquired was: 10/22/2022. The wound has been in treatment 12 weeks. The wound is currently classified as a Full Thickness Without Exposed Support Structures wound with etiology of Open Surgical Wound and is located on the Abdomen - midline. The wound measures 5.1cm length x 2cm width x 0.1cm depth; 8.011cm^2 area and 0.801cm^3 volume. There is Fat Layer (Subcutaneous Tissue) exposed. There is no tunneling or undermining noted. There is a large amount of serosanguineous drainage noted. The wound margin is well defined and not attached to the wound base. There is medium (34-66%) red granulation within the wound bed. There is a medium (34-66%) amount of necrotic tissue within the wound bed including Adherent Slough. The periwound skin appearance exhibited: Excoriation, Rash, Scarring, Erythema. The periwound skin appearance did not exhibit: Callus, Crepitus, Induration, Dry/Scaly, Maceration, Atrophie Chata, Cyanosis, Ecchymosis, Hemosiderin Staining, Mottled, Pallor, Rubor. The surr ounding wound skin color is noted with erythema which is circumferential. Periwound temperature was noted as No Abnormality. Review Of Systems: Constitutional: No fever, no chills, no night sweats. No weight change. No weakness, fatigue or lethargy. No daytime sleepiness. Integumentary:reports wounds, no lesions. No rash or pruritus. No unusual bruising. No change in hair or nails. Physical exam: General Appearance: Alert, cooperative, no distress, appears stated age. Skin: See HPI all other Skin color, texture, tugor normal, no rashes or lesions. Neurologic: Alert oriented x3 Assessment: 1. 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 Diabetes with skin ulceration Plan: 1. Apply absorptive silver moistened and border foam. Change Friday. Patient returned to the wound care center February 12 at 145 Thank you for the consultation any questions to contact the wound care center DNP note has been reviewed and discussed with Dr. Vizcaino and the impression and plan of care has been directed as dictated. Past Medical History Past Medical History: Diabetes Mellitus, Hyperlipidemia, Hypertension Additional Past Medical History / Comment(s): STATES SORE ON THE BOTTOM OF LEFT FOOT. History of Any Multi-Drug Resistant Organisms: VRE Year Discovered:: 10/02/22 MDRO Source:: Abdomen Past Surgical History: Hernia Repair Past Anesthesia/Blood Transfusion Reactions: No Reported Reaction Additional Past Anesthesia/Blood Transfusion Reaction / Comm: PT HAS NEVER RECEIVED ANESTHESIA. Past Psychological History: Anxiety Smoking Status: Former smoker Past Alcohol Use History: Occasional Additional Past Alcohol Use History / Comment(s): HX OF 1/2 PPD SMOKER. Past Drug Use History: None Reported - Past Family History Mother Family Medical History: Diabetes Mellitus Father Family Medical History: Cancer Medications and Allergies Home Medications Medication Instructions Recorded Confirmed Type Empagliflozin [Jardiance] 25 mg PO DAILY 11/09/21 02/05/23 History HYDROcodone/APAP 7.5-325MG [[place] 1 tab PO TID 11/09/21 02/05/23 History 7.5-325] Pregabalin 200 mg PO TID 11/09/21 02/05/23 History Simvastatin [Zocor] 20 mg PO HS 11/09/21 02/05/23 History lisinopriL [Zestril] 20 mg PO DAILY 11/09/21 02/05/23 History sitaGLIPtin [Januvia] 100 mg PO DAILY 11/09/21 02/05/23 History Famotidine 20 mg PO BID 07/01/22 02/05/23 History Furosemide [Lasix] 20 mg PO DAILY 07/01/22 02/05/23 History Sevelamer [Renvela] 800 mg PO DAILY 07/01/22 02/05/23 History Ergocalciferol [Vitamin D2 (1250 1,250 mcg PO Q7D 10/01/22 02/05/23 History Mcg = 80662 Iu)] metFORMIN HCL 1,000 mg PO BID 10/01/22 02/05/23 History Glimepiride [Amaryl] 1 mg PO AC-BRKFST 02/05/23 02/05/23 History Terbinafine [LamISIL] 250 mg PO DAILY 02/05/23 02/05/23 History Allergies Allergy/AdvReac Type Severity Reaction Status Date / Time No Known Allergies Allergy Verified 02/05/23 09:01 Physical Exam Vitals: Vital Signs Temp Pulse Pulse Resp BP Pulse Ox 02/06/23 08:00 18 02/06/23 07:22 97.9 F 79 18 136/73 99 02/06/23 01:30 97.8 F 76 18 134/71 97 02/05/23 19:27 98.3 F 96 18 150/77 97 Intake and Output 02/06/23 02/06/23 02/06/23 06:59 14:59 22:59 Intake Total 200 300 Balance 200 300 Intake: Oral 200 300 Other: # Voids 3 3 Results CBC & Chem 7: 02/06/23 07:47 02/06/23 07:47 Labs: Abnormal Lab Results - Last 24 Hours (Table) 02/05/23 02/06/23 02/06/23 Range/Units 21:36 05:47 07:47 MCV (80.0-97.0) FL MCHC (32.0-37.0) d/dL MPV (9.5-12.2) FL Eosinophils # (0.04-0.35) X 10*3/uL Glucose (70-110) mg/dL POC Glucose (mg/dL) 228 H 212 H (70-110) mg/dL Hemoglobin A1c 6.2 H (<=6.0) % Total Bilirubin (0.3-1.2) mg/dL Albumin (3.8-4.9) d/dL Albumin/Globulin Ratio (1.60-3.17) Ratio 02/06/23 02/06/23 02/06/23 Range/Units 07:47 07:47 11:53 MCV 100.0 H (80.0-97.0) FL MCHC 31.5 L (32.0-37.0) d/dL MPV 9.4 L (9.5-12.2) FL Eosinophils # 0.47 H (0.04-0.35) X 10*3/uL Glucose 201 H (70-110) mg/dL POC Glucose (mg/dL) 148 H (70-110) mg/dL Hemoglobin A1c (<=6.0) % Total Bilirubin <0.2 L (0.3-1.2) mg/dL Albumin 3.5 L (3.8-4.9) d/dL Albumin/Globulin Ratio 1.30 L (1.60-3.17) Ratio 02/06/23 Range/Units 16:45 MCV (80.0-97.0) FL MCHC (32.0-37.0) d/dL MPV (9.5-12.2) FL Eosinophils # (0.04-0.35) X 10*3/uL Glucose (70-110) mg/dL POC Glucose (mg/dL) 168 H (70-110) mg/dL Hemoglobin A1c (<=6.0) % Total Bilirubin (0.3-1.2) mg/dL Albumin (3.8-4.9) d/dL Albumin/Globulin Ratio (1.60-3.17) Ratio Assessment and Plan (1) Non-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
[2023-02-06] MEDS: methylPREDNISolone SOD SUCCI 125 MG/2 ML VIAL IV SCH (18:24)
[2023-02-06 19:31] LABS: Glucose,Whole Blood 246 mg/dL (70-110)
--- NOTE | 2023-02-06 19:47 | CA ---
Transthoracic Echo Report Name: Devon Romero Age: 52 Gender: M : 1970 Exam Date: 02/06/2023 11:16 Exam Location: [facility] Ht (in): 71 Wt (lb): 226 Ordering Physician: Mt Hooper MD Attending/Referring Phys: Records Custodian Westley Muñoz Procedure CPT: Indications: dyspnea Cardiac Hx: Technical Quality: Fair Contrast 1: [place]ason Total Dose (mL): 5 Contrast 2: Total Dose (mL): MEASUREMENTS (Male / Female) Normal Values FINDINGS Left Ventricle Normal LV size and wall thickness. Left ventricular ejection fraction is estimated at 50-55 %. Right Ventricle Normal right ventricular size. Right Atrium Normal right atrial size. Left Atrium Normal left atrial size. LA volume index= 23ml/m2 Mitral Valve Structurally normal mitral valve. Aortic Valve Trileaflet aortic valve. No aortic valve stenosis or regurgitation. Tricuspid Valve Structurally normal tricuspid valve. Trace TR. Pulmonic Valve Pulmonic valve not well visualized. Pericardium Normal pericardium. Aorta Normal size aortic root. CONCLUSIONS LV systolic function of about 50-55% Previewed by: Dr. Nabil Moss MD (Electronically Signed) Final Date: 06 February 2023 19:46
[2023-02-06] MEDS: ATORVASTATIN 10 MG TAB PO SCH (22:16)
[2023-02-07] MEDS: VANCOMYCIN 1,750 MG in SODIUM CHLORIDE 0.9% 500 ML 500 ML IVPB SCH ×2 (01:22→16:08)
[2023-02-07] MEDS: methylPREDNISolone SOD SUCCI 125 MG/2 ML VIAL IV SCH ×3 (01:22→16:08)
--- NOTE | 2023-02-07 05:01 | HP ---
HISTORY AND PHYSICAL HISTORY OF PRESENT ILLNESS: The patient came to the hospital with severe rash all over his body kind of drug reaction or allergic response, improving with Benadryl and Solu-Medrol. 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 Open ulcer to the distal great toe. He had abdomen infection, which was improved recently due to recurrent redness, swelling and erythema. The patient was admitted, started on antibiotics. Infectious Disease consulted. PAST MEDICAL HISTORY: Diabetes mellitus, hypertension, dyslipidemia, hernia repair. FAMILY HISTORY: Mother, diabetes mellitus. Father, cancer. HOME MEDICATIONS: 1. Jardiance 25 mg daily. 2. [place] 7.5 . 3. Zocor 20 daily. 4. Pregabalin 200 t.i.d. 5. Lisinopril 20 daily. 6. Januvia 100 mg daily. 7. Famotidine 20 b.i.d. 8. Lasix 20 daily. 9. Renvela 800 daily. 10.Vitamin D2 daily. 11.Metformin 1000 b.i.d. 12. breakfast. 13.Lamisil 250 daily. ALLERGIES: Negative. PHYSICAL EXAMINATION: VITAL SIGNS: Temp 97 to 98, blood pressure 120 to 130s over 60s to 70s, O2 is 95% to 100%, respiratory rate 16 to 22. ASSESSMENT: Diffuse swelling and redness of bilateral lower extremities and cellulitis secondary to gram-positive skin cat, gram-negative infection less likely, possibly of urticaria versus drug reactions. Continue with vancomycin and cefepime per Infectious Disease, Mycolog cream, IV steroids and IV Benadryl. Prognosis guarded. Please see further orders. MMODL / IJN: [id number] /
[2023-02-07 05:45] LABS: Glucose,Whole Blood 314 mg/dL (70-110)
[2023-02-07] MEDS: PANTOPRAZOLE 40 MG TABLET PO SCH (06:26)
[2023-02-07] MEDS: GLIMEPIRIDE 1 MG TAB PO SCH (06:26)
[2023-02-07] MEDS: INSULIN ASPART (NovoLOG) 100 UNIT/ML VIAL SQ SCH ×4 (06:26→21:04)
[2023-02-07] MEDS: lisinopriL 20 MG TAB PO SCH (10:01)
[2023-02-07] MEDS: SEVELAMER 800 MG TAB PO SCH (10:01)
[2023-02-07] MEDS: DAPAGLIFLOZIN PROPANEDIOL 10 MG TABLET PO SCH (10:01)
[2023-02-07] MEDS: HYDROcodone/APAP 7.5-325MG 1 EACH TAB PO SCH ×3 (10:02→21:05)
[2023-02-07] MEDS: FAMOTIDINE 20 MG TAB PO SCH ×2 (10:02→21:05)
[2023-02-07] MEDS: PREGABALIN 100 MG CAP PO SCH ×3 (10:02→21:04)
[2023-02-07] MEDS: FUROSEMIDE 20 MG TAB PO SCH (10:06)
[2023-02-07] MEDS: metFORMIN 500 MG TAB PO SCH ×2 (10:07→21:12)
[2023-02-07] MEDS: NYSTATIN 100,000UNIT/GM CREAM 30 GM TUBE TOPICAL SCH ×2 (10:14→21:13)
[2023-02-07] MEDS: TRIAMCINOLONE 0.1% CREAM 80 GM TUBE TOPICAL SCH ×2 (10:15→21:13)
[2023-02-07 10:52] LABS: Glucose,Whole Blood 189 mg/dL (70-110)
[2023-02-07 11:50] LABS: Glucose,Whole Blood 172 mg/dL (70-110)
[2023-02-07] MEDS ORDERED: VANCOMYCIN TROUGH DUE 1 EACH MISC MISCELLANE ONE (13:00)
--- NOTE | 2023-02-07 14:27 | CDI ---
Documentation Clarification Form Date: 02/07/2023 02:02:49 PM From: Joie Pop RN, CCDS Email: [email or web address] Admit Date: 02/05/2023 03:08:00 AM Patient Name: Devon Romero Visit Number: [id number] Discharge Date: ATTENTION: The Clinical Documentation Specialists (CDI) and [facility] Coding Staff appreciate your assistance in clarifying documentation. Please respond to the clarification below the line at the bottom and electronically sign. The CDI & [facility] Coding staff will review the response and follow-up if needed. Please note: Queries are made part of the Legal Health Record. If you have any questions, please contact the author of this message via ITS. Dr. Mt Hooper Cellulitis is documented in the progress notes. Additional clarification regarding the type of cellulitis is requested. History/risk factors: DM, HTN, HLD. Presented with fluid retention in legs and discoloration. Admitted with diabetic ulcer of right foot with fat layer exposed. Clinical Indicators: ED: "Diabetic ulcer of right foot associated with diabetes mellitus due to underlying condition, with fat layer expose." ID: "diffuse swelling and redness to the bilateral lower extremity concerning for cellulitis likely from gram-positive skin cat gram-negative infection. Cellulitis." H&P: "Diffuse swelling and redness of bilateral lower extremities and cellulitis. Treatment: IV Cefepime 2gm Q8H 02/05-02/06; IV Rocephin x1 on 02/04; IV Vancomycin 1750 mg Q12H 02/05-02/07; 1L 0.9 NS IV bolus; Amaryl 1mg po QAM 02/06-02/07; SS insulin Please clarify the etiology of the cellulitis, if known: [ ] Cellulitis is a diabetic skin complication [ ] Cellulitis is not a diabetic skin complication [ ] Other, please specify: [ ] Unable to determine MTDD
[2023-02-07 15:01] LABS: African American GFR (CKD) >90 (>60 ml/min/1.73 sqM); Non-African American GFR(CKD) >90 (>60 ml/min/1.73 sqM)
[2023-02-07 16:28] LABS: Glucose,Whole Blood 323 mg/dL (70-110)
[2023-02-07 20:17] LABS: Glucose,Whole Blood 383 mg/dL (70-110)
[2023-02-07] MEDS: ATORVASTATIN 10 MG TAB PO SCH (21:38)
--- NOTE | 2023-02-07 22:51 | P.PN ---
Subjective Progress Note Date: 02/07/23 Principal diagnosis: Bilateral lower extremity cellulitis and rash Patient is a 52-year-old male with a past medical history significant for hypertension hyperlipidemia and diabetes mellitus patient did have a prior umbilical hernia repair subsequently did develop abdominal wall abscess with abdominal wound treated with a wound VAC now presented to hospital with swelling redness and itching to bilateral lower extremity and consult for possible cellulitis. Patient did have a CT of abdominal pelvis mention near complete resolution of the abdominal wall fluid collection. On today's evaluation that is 02/07/2023, the patient continues to be afebrile the patient is breathing comfortably on room air, the patient denies chest pain or cough, patient denies abdominal pain and no nausea/vomiting and no diarrhea has been reported., Still complaining of significant itching erythematous rash to the upper and lower extremity The patient did have a creatinine 0.86 Vanco trough is 16.8 white count 6.59 Objective - Vital Signs Vital signs: Vital Signs Temp 97.5 F L 02/07/23 12:50 Pulse 74 02/07/23 12:50 Resp 16 02/07/23 12:50 BP 134/75 02/07/23 12:50 Pulse Ox 99 02/07/23 07:32 FiO2 Intake & Output 02/06/23 02/07/23 02/07/23 18:59 06:59 18:59 Intake Total 500 200 Balance 500 200 Intake: Oral 500 200 Other: Voiding Method Toilet # Voids 3 3 - Exam GENERAL DESCRIPTION: Middle-age male up in bed in no distress RESPIRATORY SYSTEM: Unlabored breathing , decreased breath sounds at bases HEART: S1 S2 regular rate and rhythm , ABDOMEN: Soft , no tenderness EXTREMITIES: Bilateral lower extremity with swelling and erythematous rash no drainage - Labs CBC & Chem 7: 02/06/23 07:47 02/07/23 14:34 Labs: Abnormal Lab Results - Last 24 Hours (Table) 02/06/23 02/06/23 02/07/23 Range/Units 16:45 19:30 05:43 POC Glucose (mg/dL) 168 H 246 H 314 H (70-110) mg/dL 02/07/23 02/07/23 Range/Units 10:48 11:49 POC Glucose (mg/dL) 189 H 172 H (70-110) mg/dL Assessment and Plan (1) Rash Current Visit: Yes Status: Acute Code(s): R21 - RASH AND OTHER NONSPECIFIC SKIN ERUPTION SNOMED Code(s): 625349663 (2) Cellulitis Current Visit: Yes Status: Acute Code(s): L03.90 - CELLULITIS, UNSPECIFIED SNOMED Code(s): 357373427 (3) Diabetes with skin ulcer Current Visit: No Status: Acute Code(s): E11.622 - TYPE 2 DIABETES MELLITUS WITH OTHER SKIN ULCER; L98.499 - NON-PRESSURE CHRONIC ULCER OF SKIN OF SITES W UNSP SEVERITY SNOMED Code(s): 26220370 Plan: 1patient present hospital diffuse swelling and redness to the bilateral lower extremity concerning for cellulitis likely from gram-positive skin cat gram- negative infection less likely diastolic keeping in mind the patient multiple recent hospitalization 2-patient also have a history of abdominal wall abscess with recent CT shows almost complete resolution. 3local care to the lower extremity dry scaly skin should be washed out with a warm moist washcloth afterwards apply Mycolog cream twice a day then Faustino wrap to keep the swelling down to 4-patient did have extensive rash could be a drug-related And the likely drug causing these rash could be lisinopril which will be discontinued we will continue the patient on steroids and Benadryl and monitor clinical course closely Dictation was produced using [employer] dictation software. please excuse any grammatical, word or spelling errors. Time with Patient: Less than 30
[2023-02-08] MEDS: methylPREDNISolone SOD SUCCI 125 MG/2 ML VIAL IV SCH ×3 (00:10→16:00)
[2023-02-08] MEDS: VANCOMYCIN 1,750 MG in SODIUM CHLORIDE 0.9% 500 ML 500 ML IVPB SCH ×2 (02:57→14:02)
[2023-02-08 06:07] LABS: Glucose,Whole Blood 326 mg/dL (70-110)
[2023-02-08] MEDS: PANTOPRAZOLE 40 MG TABLET PO SCH (06:35)
[2023-02-08] MEDS: INSULIN ASPART (NovoLOG) 100 UNIT/ML VIAL SQ SCH ×4 (06:35→21:31)
[2023-02-08] MEDS: GLIMEPIRIDE 1 MG TAB PO SCH (06:35)
[2023-02-08] MEDS: FUROSEMIDE 20 MG TAB PO SCH (07:59)
[2023-02-08] MEDS: FAMOTIDINE 20 MG TAB PO SCH ×2 (07:59→21:31)
[2023-02-08] MEDS: metFORMIN 500 MG TAB PO SCH ×2 (07:59→21:31)
[2023-02-08] MEDS: HYDROcodone/APAP 7.5-325MG 1 EACH TAB PO SCH ×3 (07:59→21:32)
[2023-02-08] MEDS: PREGABALIN 100 MG CAP PO SCH ×3 (07:59→21:31)
[2023-02-08] MEDS: DAPAGLIFLOZIN PROPANEDIOL 10 MG TABLET PO SCH (08:00)
[2023-02-08] MEDS: NYSTATIN 100,000UNIT/GM CREAM 30 GM TUBE TOPICAL SCH ×2 (08:00→21:32)
[2023-02-08] MEDS: SEVELAMER 800 MG TAB PO SCH (08:00)
[2023-02-08] MEDS: TRIAMCINOLONE 0.1% CREAM 80 GM TUBE TOPICAL SCH ×2 (08:01→21:32)
--- NOTE | 2023-02-08 08:52 | PN ---
PROGRESS NOTE SUBJECTIVE: Mr. Romero has greatly improved. Medications were reviewed with him. He is on Benadryl and Solu-Medrol. Rashes throughout his body are slowly dissipating. CT of abdomen and pelvis shows negative fluid collection. . White count 6.59, hemoglobin is 15. OBJECTIVE: RESPIRATORY: Unlabored breathing. Scattered rhonchi and wheeze. CARDIOVASCULAR: S1, S2. HEMATOLOGY: Negative Homans. PSYCH: Fair mood and affect. ASSESSMENT: 1. Cellulitis, diffuse. 2. Urticaria, diffuse. 3. Diabetes with rash. 4. Redness and swelling, bilateral upper and lower extremities. 5. Possible diastolic heart failure secondary to infection. Could be related due to extensive rash, we are going to stop his lisinopril. Continue steroids and Benadryl. Prognosis is extremely guarded. KENYL / IJN: [id number] /
[2023-02-08 11:34] LABS: Glucose,Whole Blood 267 mg/dL (70-110)
[2023-02-08] MEDS: diphenhydrAMINE 25 MG CAP PO PRN ×2 (11:45→17:58)
--- NOTE | 2023-02-08 13:07 | PN ---
PROGRESS NOTE SUBJECTIVE: Bilateral lower extremity cellulitis, severe urticaria, much improved with steroids and Benadryl. He is feeling better at this time. OBJECTIVE: VITAL SIGNS: Temperature 97.8, blood pressure 143/76, O2 is 95% on room air, pulse 64, and respiratory rate 18 to 20. CARDIOVASCULAR: S1, S2. LUNGS: Clear, mild wheeze. LABORATORY DATA: Sugars in mid 200s, creatinine 0.86. He is on vanc and Zosyn. The rash is much improved, maybe 50% less redness, swelling, and urticaria is noted in extremities. Leg cellulitis seen by Andrea. Continue current treatment. He is afebrile. No abdominal pain, nausea, vomiting, his itchiness is better. Medicines are continued, vanc and cefepime per Dr. Mendez. He says he is breathing very minimally, he has COPD on CAT scan. He has cellulitis, diabetic with skin ulcer, diffuse swelling of his lower extremities, concerned with cellulitis. History of abdominal abscess, extensive rash, possibly drug related to lisinopril. Continue steroids and IV antibiotics. Possible home in next 24 to 48 hours. MMODL / IJN: [id number] /
--- NOTE | 2023-02-08 13:19 | P.PN ---
Subjective Progress Note Date: 02/08/23 Principal diagnosis: Bilateral lower extremity cellulitis and rash Patient is a 52-year-old male with a past medical history significant for hypertension hyperlipidemia and diabetes mellitus patient did have a prior umbilical hernia repair subsequently did develop abdominal wall abscess with abdominal wound treated with a wound VAC now presented to hospital with swelling redness and itching to bilateral lower extremity and consult for possible cellulitis. Patient did have a CT of abdominal pelvis mention near complete resolution of the abdominal wall fluid collection. On today's evaluation that is 02/08/2023, the patient remains to be afebrile the patient is breathing comfortably on room air and not requiring supplemental oxygen, the patient denies chest pain and no significant cough, patient denies abdominal pain and no nausea/vomiting or diarrhea , Pt itching erythematous rash to the upper and lower extremity has slightly decreased in intensity The patient did have a creatinine 0.86 Vanco trough is 16.8 white count 6.59 as of yesterday , no labs today Objective - Vital Signs Vital signs: Vital Signs Temp 97.8 F 02/08/23 07:18 Pulse 64 02/08/23 07:18 Resp 20 02/08/23 08:02 BP 143/76 02/08/23 07:18 Pulse Ox 95 02/08/23 07:18 FiO2 Intake & Output 02/07/23 02/08/23 02/08/23 18:59 06:59 18:59 Intake Total 550 Balance 550 Intake: Oral 550 Other: Voiding Method Toilet # Voids 4 2 - Exam GENERAL DESCRIPTION: Middle-age male up in bed in no distress RESPIRATORY SYSTEM: Unlabored breathing , decreased breath sounds at bases HEART: S1 S2 regular rate and rhythm , ABDOMEN: Soft , no tenderness EXTREMITIES: Bilateral lower extremity with swelling and erythematous rash has decreased in intensity no drainage - Labs CBC & Chem 7: 02/06/23 07:47 02/07/23 14:34 Labs: Abnormal Lab Results - Last 24 Hours (Table) 02/07/23 02/07/23 02/08/23 Range/Units 16:27 20:14 06:05 POC Glucose (mg/dL) 323 H 383 H 326 H (70-110) mg/dL 02/08/23 Range/Units 11:32 POC Glucose (mg/dL) 267 H (70-110) mg/dL Assessment and Plan (1) Rash Current Visit: Yes Status: Acute Code(s): R21 - RASH AND OTHER NONSPECIFIC SKIN ERUPTION SNOMED Code(s): 115688820 (2) Cellulitis Current Visit: Yes Status: Acute Code(s): L03.90 - CELLULITIS, UNSPECIFIED SNOMED Code(s): 821546291 (3) Diabetes with skin ulcer Current Visit: No Status: Acute Code(s): E11.622 - TYPE 2 DIABETES MELLITUS WITH OTHER SKIN ULCER; L98.499 - NON-PRESSURE CHRONIC ULCER OF SKIN OF SITES W UNSP SEVERITY SNOMED Code(s): 06819009 Plan: 1patient present hospital diffuse swelling and redness to the bilateral lower extremity concerning for cellulitis likely from gram-positive skin cat gram- negative infection less likely diastolic keeping in mind the patient multiple recent hospitalization 2-patient also have a history of abdominal wall abscess with recent CT shows almost complete resolution. 3local care to the lower extremity dry scaly skin should be washed out with a warm moist washcloth afterwards apply Mycolog cream twice a day then Faustino wrap to keep the swelling down to 4-patient did have extensive rash could be a drug-related And the likely drug causing these rash could be lisinopril which was discontinued 5- we will continue the patient on steroids and Benadryl and monitor clinical course closely Dictation was produced using [employer] dictation software. please excuse any grammatical, word or spelling errors. Time with Patient: Less than 30
[2023-02-08 16:39] LABS: Glucose,Whole Blood 263 mg/dL (70-110)
[2023-02-08 20:21] LABS: Glucose,Whole Blood 317 mg/dL (70-110)
[2023-02-08] MEDS: ATORVASTATIN 10 MG TAB PO SCH (21:31)
[2023-02-09] MEDS: methylPREDNISolone SOD SUCCI 125 MG/2 ML VIAL IV SCH ×2 (00:41→08:19)
[2023-02-09] MEDS: diphenhydrAMINE 25 MG CAP PO PRN ×4 (00:45→21:04)
[2023-02-09] MEDS: VANCOMYCIN 1,750 MG in SODIUM CHLORIDE 0.9% 500 ML 500 ML IVPB SCH ×2 (01:09→13:57)
[2023-02-09 05:36] LABS: African American GFR (CKD) >90 (>60 ml/min/1.73 sqM); Non-African American GFR(CKD) >90 (>60 ml/min/1.73 sqM)
[2023-02-09 05:45] LABS: Glucose,Whole Blood 347 mg/dL (70-110)
[2023-02-09] MEDS: GLIMEPIRIDE 1 MG TAB PO SCH (06:10)
[2023-02-09] MEDS: INSULIN ASPART (NovoLOG) 100 UNIT/ML VIAL SQ SCH ×4 (06:10→20:57)
[2023-02-09] MEDS: PANTOPRAZOLE 40 MG TABLET PO SCH ×2 (06:10→16:22)
[2023-02-09] MEDS: HYDROcodone/APAP 7.5-325MG 1 EACH TAB PO SCH ×3 (08:25→20:56)
[2023-02-09] MEDS: FUROSEMIDE 20 MG TAB PO SCH (08:25)
[2023-02-09] MEDS: metFORMIN 500 MG TAB PO SCH ×2 (08:25→20:56)
[2023-02-09] MEDS: PREGABALIN 100 MG CAP PO SCH ×4 (08:26→20:57)
[2023-02-09] MEDS: FAMOTIDINE 20 MG TAB PO SCH (08:26)
[2023-02-09] MEDS: DAPAGLIFLOZIN PROPANEDIOL 10 MG TABLET PO SCH (08:26)
[2023-02-09] MEDS: SEVELAMER 800 MG TAB PO SCH (08:26)
[2023-02-09] MEDS: TRIAMCINOLONE 0.1% CREAM 80 GM TUBE TOPICAL SCH ×2 (08:27→20:58)
[2023-02-09] MEDS: NYSTATIN 100,000UNIT/GM CREAM 30 GM TUBE TOPICAL SCH ×2 (08:27→20:58)
[2023-02-09 09:05] LABS: Basophils # (A) 0.02 X 10*3/uL (0.00-0.10); Basophils % (A) 0.3 %; Eosinophils # (A) 0 X 10*3/uL (0.04-0.35); Eosinophils % (A) 0 %; HCT 39.7 % (39.6-50.0); HGB 12.9 d/dL (13.0-17.0); Lymphocytes % (A) 6.3 %; MCH 32.2 pg (27.0-32.0); MCHC 32.5 d/dL (32.0-37.0); Mean Platelet Volume 9.9 FL (9.5-12.2); Monocytes # (A) 0.26 X 10*3/uL (0.20-1.00); Monocytes % (A) 3.3 %; NRBC Per 100 WBC 0 X 10*3/uL (0.00-0.01); Neutrophils # (A) 7.13 X 10*3/uL (1.80-7.70); Neutrophils % (A) 89.7 %; Platelet Count 191 X 10*3/uL (140-440); RBC 4.01 X 10*6/uL (4.40-5.60); WBC 7.94 X 10*3/uL (4.50-10.00)
[2023-02-09 09:19] LABS: ALT 38 U/L (10-49); AST 26 U/L (14-35); Albumin 3.5 d/dL (3.8-4.9); Albumin/Globulin Ratio 1.35 Ratio (1.60-3.17); Alkaline Phosphatase 71 U/L (41-126); Calcium 8.7 mg/dL (8.7-10.3); Chloride 106 mmol/L (96-109); Globulin 2.6 d/dL (1.6-3.3); Glucose 331 mg/dL (70-110); Potassium 4.5 mmol/L (3.5-5.5); Sodium 139 mmol/L (135-145); Total Bilirubin <0.2 mg/dL (0.3-1.2); Total Protein 6.1 d/dL (6.2-8.2)
[2023-02-09 11:21] LABS: Glucose,Whole Blood 306 mg/dL (70-110)
[2023-02-09] MEDS: FUROSEMIDE 10 MG/ML 4 ML VIAL IV SCH ×2 (11:31→21:38)
[2023-02-09] MEDS: GLIMEPIRIDE 2 MG TAB PO SCH (11:32)
--- NOTE | 2023-02-09 12:11 | PN ---
PROGRESS NOTE SUBJECTIVE: A 52-year-old white male whose rash and cellulitis of the legs are improved with IV antibiotics, but he still has severe large amount of edema in his legs. OBJECTIVE: CARDIOVASCULAR: S1, S2. LUNGS: Scattered rhonchi and wheeze. HEMATOLOGY: Negative Homans. 2 to 3+ edema. INTEGUMENT: Redness and swelling We are going to give him IV Lasix to try to get some of the fluid out of his legs. He is already on Farxiga, some metformin for diabetes per recommendations. He is on high dose of Lyrica which would cause leg swelling. We may be try to cut down that dose. He remains on vancomycin. We switched his Lasix oral to IV Lasix to 40 q.12. Add Pepcid. He has anasarca type changes of his legs. 3+ edema bilaterally with redness and excoriations on the skin. His trunk and groin appear to be improved rash with decreased redness and swelling. He stopped his lisinopril, possible drug reaction. Hemoglobin is 12.9, white count 7.94. Glucose 331, been in the 300s and 200s. We are going to have to adjust diabetes here. His creatinine is good at 0.68. Please see further orders. MMODL / IJN: [id number] /
[2023-02-09] MEDS ORDERED: methylPREDNISolone SOD SUCCI 40 MG/ML 1 ML VIAL IV SCH (16:00)
[2023-02-09 16:10] LABS: Glucose,Whole Blood 219 mg/dL (70-110)
[2023-02-09] MEDS: carvediloL 6.25 MG TAB PO SCH (16:22)
[2023-02-09 20:17] LABS: Glucose,Whole Blood 160 mg/dL (70-110)
[2023-02-09] MEDS: ATORVASTATIN 10 MG TAB PO SCH (20:57)
[2023-02-10 05:26] LABS: Glucose,Whole Blood 200 mg/dL (70-110)
[2023-02-10] MEDS: INSULIN ASPART (NovoLOG) 100 UNIT/ML VIAL SQ SCH ×4 (06:29→20:20)
[2023-02-10] MEDS: GLIMEPIRIDE 2 MG TAB PO SCH (06:30)
[2023-02-10] MEDS: PANTOPRAZOLE 40 MG TABLET PO SCH ×2 (06:30→17:43)
[2023-02-10] MEDS: carvediloL 6.25 MG TAB PO SCH ×2 (06:30→17:43)
[2023-02-10] MEDS: PREGABALIN 100 MG CAP PO SCH ×3 (08:37→20:23)
[2023-02-10] MEDS: FUROSEMIDE 10 MG/ML 4 ML VIAL IV SCH ×2 (08:37→20:19)
[2023-02-10] MEDS: metFORMIN 500 MG TAB PO SCH ×2 (08:37→20:20)
[2023-02-10] MEDS: HYDROcodone/APAP 7.5-325MG 1 EACH TAB PO SCH ×3 (08:37→20:19)
[2023-02-10] MEDS: SEVELAMER 800 MG TAB PO SCH (08:38)
[2023-02-10] MEDS: predniSONE 50 MG TAB PO SCH (08:38)
[2023-02-10] MEDS: DAPAGLIFLOZIN PROPANEDIOL 10 MG TABLET PO SCH (08:38)
[2023-02-10] MEDS: NYSTATIN 100,000UNIT/GM CREAM 30 GM TUBE TOPICAL SCH ×2 (08:39→20:17)
[2023-02-10] MEDS: TRIAMCINOLONE 0.1% CREAM 80 GM TUBE TOPICAL SCH ×2 (08:39→20:18)
[2023-02-10] MEDS ORDERED: ERGOCALCIFEROL 1,250 MCG (50,000 IU) CAPSULE PO SCH (09:00)
[2023-02-10] MEDS: diphenhydrAMINE 25 MG CAP PO PRN ×3 (09:21→22:29)
[2023-02-10 11:29] LABS: Glucose,Whole Blood 302 mg/dL (70-110)
--- NOTE | 2023-02-10 12:26 | P.PN ---
Subjective Progress Note Date: 02/09/23 Principal diagnosis: Bilateral lower extremity cellulitis and rash Patient is a 52-year-old male with a past medical history significant for hypertension hyperlipidemia and diabetes mellitus patient did have a prior umbilical hernia repair subsequently did develop abdominal wall abscess with abdominal wound treated with a wound VAC now presented to hospital with swelling redness and itching to bilateral lower extremity and consult for possible cellulitis. Patient did have a CT of abdominal pelvis mention near complete resolution of the abdominal wall fluid collection. On today's evaluation that is 02/09/2023, the patient continues to be afebrile the patient is breathing comfortably on room air, the patient denies chest pain, shortness of breath or cough, patient denies abdominal pain, no nausea/vomiting and no diarrhea has been reported, the patient itching erythematous rash to the upper and lower extremity has significantly decreased in intensity The patient did have a white count of 7.94, creatinine 0.68 Objective - Vital Signs Vital signs: Vital Signs Temp 97.7 F 02/09/23 13:52 Pulse 52 L 02/09/23 13:52 Resp 18 02/09/23 13:52 BP 173/73 02/09/23 13:52 Pulse Ox 97 02/09/23 13:52 FiO2 Intake & Output 02/08/23 02/09/23 02/09/23 18:59 06:59 18:59 Other: Voiding Method Toilet Toilet # Voids 4 2 - Exam GENERAL DESCRIPTION: Middle-age male up in bed in no distress RESPIRATORY SYSTEM: Unlabored breathing , decreased breath sounds at bases HEART: S1 S2 regular rate and rhythm , ABDOMEN: Soft , no tenderness EXTREMITIES: Bilateral lower extremity with swelling and erythematous rash has decreased in intensity no drainage - Labs CBC & Chem 7: 02/09/23 04:27 02/09/23 04:27 Labs: Abnormal Lab Results - Last 24 Hours (Table) 02/08/23 02/08/23 02/09/23 Range/Units 16:38 20:17 04:27 RBC 4.01 L (4.40-5.60) X 10*6/uL Hgb 12.9 L (13.0-17.0) d/dL MCV 99.0 H (80.0-97.0) FL MCH 32.2 H (27.0-32.0) pg Lymphocytes # 0.50 L (0.90-5.00) X 10*3/uL Eosinophils # 0 L (0.04-0.35) X 10*3/uL BUN/Creatinine Ratio (12.00-20.00) Ratio Glucose (70-110) mg/dL POC Glucose (mg/dL) 263 H 317 H (70-110) mg/dL Total Bilirubin (0.3-1.2) mg/dL Total Protein (6.2-8.2) d/dL Albumin (3.8-4.9) d/dL Albumin/Globulin Ratio (1.60-3.17) Ratio 02/09/23 02/09/23 02/09/23 Range/Units 04:27 05:43 11:15 RBC (4.40-5.60) X 10*6/uL Hgb (13.0-17.0) d/dL MCV (80.0-97.0) FL MCH (27.0-32.0) pg Lymphocytes # (0.90-5.00) X 10*3/uL Eosinophils # (0.04-0.35) X 10*3/uL BUN/Creatinine Ratio 27.50 H (12.00-20.00) Ratio Glucose 331 H (70-110) mg/dL POC Glucose (mg/dL) 347 H 306 H (70-110) mg/dL Total Bilirubin <0.2 L (0.3-1.2) mg/dL Total Protein 6.1 L (6.2-8.2) d/dL Albumin 3.5 L (3.8-4.9) d/dL Albumin/Globulin Ratio 1.35 L (1.60-3.17) Ratio Assessment and Plan (1) Rash Current Visit: Yes Status: Acute Code(s): R21 - RASH AND OTHER NONSPECIFIC SKIN ERUPTION SNOMED Code(s): 788066994 (2) Cellulitis Current Visit: Yes Status: Acute Code(s): L03.90 - CELLULITIS, UNSPECIFIED SNOMED Code(s): 279289252 (3) Diabetes with skin ulcer Current Visit: No Status: Acute Code(s): E11.622 - TYPE 2 DIABETES MELLITUS WITH OTHER SKIN ULCER; L98.499 - NON-PRESSURE CHRONIC ULCER OF SKIN OF SITES W UNSP SEVERITY SNOMED Code(s): 56041291 Plan: 1patient present hospital diffuse swelling and redness to the bilateral lower extremity concerning for cellulitis likely from gram-positive skin cat gram- negative infection less likely diastolic keeping in mind the patient multiple recent hospitalization 2-patient also have a history of abdominal wall abscess with recent CT shows almost complete resolution. 3local care to the lower extremity dry scaly skin should be washed out with a warm moist washcloth afterwards apply Mycolog cream twice a day then Faustino wrap to keep the swelling down to 4-patient did have extensive rash could be a drug-related And the likely drug causing these rash could be lisinopril which was discontinued, Coreg has been added for blood pressure control 5-patient has shown clinical improvement with low clinical suspicious for c ellulitis we will discontinue vancomycin switch Solu-Medrol to prednisone Dictation was produced using [employer] dictation software. please excuse any grammatical, word or spelling errors. Time with Patient: Less than 30
--- NOTE | 2023-02-10 12:27 | P.PN ---
Subjective Progress Note Date: 02/10/23 Principal diagnosis: Bilateral lower extremity cellulitis and rash Patient is a 52-year-old male with a past medical history significant for hypertension hyperlipidemia and diabetes mellitus patient did have a prior umbilical hernia repair subsequently did develop abdominal wall abscess with abdominal wound treated with a wound VAC now presented to hospital with swelling redness and itching to bilateral lower extremity and consult for possible cellulitis. Patient did have a CT of abdominal pelvis mention near complete resolution of the abdominal wall fluid collection. On today's evaluation that is 02/10/2023, the patient remains to be afebrile, the patient is breathing comfortably on room air without the need for supplemental oxygen and no shortness of breath, the patient denies having any chest pain or cough, patient denies nausea/vomiting /diarrhea and no abdominal pain, the patient itching erythematous rash to the upper and lower extremity has significantly decreased in intensity, patient is feeling better The patient did have a white count of 7.94, creatinine 0.68 as of yesterday Objective - Vital Signs Vital signs: Vital Signs Temp 97.9 F 02/10/23 07:13 Pulse 75 02/10/23 07:13 Resp 15 02/10/23 07:13 BP 132/66 02/10/23 07:13 Pulse Ox 92 L 02/10/23 07:13 FiO2 Intake & Output 02/09/23 02/10/23 02/10/23 18:59 06:59 18:59 Other: Voiding Method Toilet Toilet Toilet # Voids 4 4 - Exam GENERAL DESCRIPTION: Middle-age male up in bed in no distress RESPIRATORY SYSTEM: Unlabored breathing , decreased breath sounds at bases HEART: S1 S2 regular rate and rhythm , ABDOMEN: Soft , no tenderness EXTREMITIES: Bilateral lower extremity with swelling and erythematous rash has decreased in intensity no drainage - Labs CBC & Chem 7: 02/09/23 04:27 02/09/23 04:27 Labs: Abnormal Lab Results - Last 24 Hours (Table) 02/09/23 02/09/23 02/10/23 Range/Units 16:03 20:16 05:21 POC Glucose (mg/dL) 219 H 160 H 200 H (70-110) mg/dL 02/10/23 Range/Units 11:27 POC Glucose (mg/dL) 302 H (70-110) mg/dL Assessment and Plan (1) Rash Current Visit: Yes Status: Acute Code(s): R21 - RASH AND OTHER NONSPECIFIC SKIN ERUPTION SNOMED Code(s): 959013580 (2) Cellulitis Current Visit: Yes Status: Acute Code(s): L03.90 - CELLULITIS, UNSPECIFIED SNOMED Code(s): 124427547 (3) Diabetes with skin ulcer Current Visit: No Status: Acute Code(s): E11.622 - TYPE 2 DIABETES MELLITUS WITH OTHER SKIN ULCER; L98.499 - NON-PRESSURE CHRONIC ULCER OF SKIN OF SITES W UNSP SEVERITY SNOMED Code(s): 91176636 Plan: 1patient present hospital diffuse swelling and redness to the bilateral lower extremity concerning for cellulitis likely from gram-positive skin cat gram- negative infection less likely diastolic keeping in mind the patient multiple recent hospitalization 2-patient also have a history of abdominal wall abscess with recent CT shows almost complete resolution. 3local care to the lower extremity dry scaly skin should be washed out with a warm moist washcloth afterwards apply Mycolog cream twice a day then Faustino wrap to keep the swelling down to 4-patient did have extensive rash could be a drug-related And the likely drug causing these rash could be lisinopril which was discontinued, Coreg has been added for blood pressure, and the patient blood pressure is normal this morning 5-patient has shown clinical improvement with low clinical suspicious for cellulitis, will monitor closely off antibiotic therapy may consider a short tapering course of prednisone on DC Dictation was produced using [employer] dictation software. please excuse any grammatical, word or spelling errors. Time with Patient: Less than 30
[2023-02-10 16:41] LABS: Glucose,Whole Blood 313 mg/dL (70-110)
[2023-02-10 19:41] LABS: Glucose,Whole Blood 322 mg/dL (70-110)
[2023-02-10] MEDS: ATORVASTATIN 10 MG TAB PO SCH (20:20)
--- NOTE | 2023-02-10 23:08 | PN ---
PROGRESS NOTE SUBJECTIVE: The patient was started on Lasix for increased lower extremity edema, which is improving. His sugars are in the mid 200s to 300s. OBJECTIVE: VITAL SIGNS: Temperature is 98, blood pressure is 164/86, O2 saturation 97% on room air, pulse 68, respiratory rate 17. GENERAL: Well male, in no acute distress. CARDIOVASCULAR: S1, S2. LUNGS: Clear. HEMATOLOGY: Negative Homans. PSYCH: Fair mood and affect. ABDOMEN: Soft, nontender. EXTREMITIES: 2 to 3+ edema. LABORATORY DATA: White count 7.94, creatinine 0.68. ASSESSMENT: Cellulitis of the legs, urticaria due to possible drug reaction, right-sided heart failure. Status post wound VAC for abdominal infection, cellulitis of the lower extremities with a rash to the upper and lower extremities, significantly improved. Rash, cellulitis of the legs, diabetes with skin ulcer, lower extremity redness and acute drug reaction, all improving. Diastolic heart failure, acute on chronic. Abdominal CT abscesses almost all the way improved. Left lower extremity dry skin. Mycolog cream twice a day. Faustino wrap it since the rash is drug related. Rash could be due to lisinopril has been on for years. Coreg is improving his blood pressure. Possibly oral with prednisone and discharge possibly to home in the next 24 to 48 hours. MMODL / IJN: [id number] /
[2023-02-11 06:05] LABS: Glucose,Whole Blood 213 mg/dL (70-110)
[2023-02-11] MEDS: carvediloL 6.25 MG TAB PO SCH ×2 (06:21→16:54)
[2023-02-11] MEDS: PANTOPRAZOLE 40 MG TABLET PO SCH ×2 (06:21→16:54)
[2023-02-11] MEDS: INSULIN ASPART (NovoLOG) 100 UNIT/ML VIAL SQ SCH ×4 (06:21→21:42)
[2023-02-11] MEDS: GLIMEPIRIDE 2 MG TAB PO SCH (06:22)
[2023-02-11] MEDS: HYDROcodone/APAP 7.5-325MG 1 EACH TAB PO SCH ×3 (09:38→20:46)
[2023-02-11] MEDS: FUROSEMIDE 10 MG/ML 4 ML VIAL IV SCH ×2 (09:38→20:45)
[2023-02-11] MEDS: PREGABALIN 100 MG CAP PO SCH ×3 (09:38→20:47)
[2023-02-11] MEDS: SEVELAMER 800 MG TAB PO SCH (09:39)
[2023-02-11] MEDS: predniSONE 50 MG TAB PO SCH (09:39)
[2023-02-11] MEDS: metFORMIN 500 MG TAB PO SCH ×2 (09:39→20:45)
[2023-02-11] MEDS: DAPAGLIFLOZIN PROPANEDIOL 10 MG TABLET PO SCH (09:39)
[2023-02-11 11:02] LABS: Basophils # (A) 0.04 X 10*3/uL (0.00-0.10); Basophils % (A) 0.5 %; Eosinophils % (A) 2.6 %; HCT 42.7 % (39.6-50.0); HGB 13.9 d/dL (13.0-17.0); Lymphocytes # (A) 1.42 X 10*3/uL (0.90-5.00); Lymphocytes % (A) 18.8 %; MCH 31.6 pg (27.0-32.0); MCHC 32.6 d/dL (32.0-37.0); Mean Platelet Volume 10.1 FL (9.5-12.2); Monocytes % (A) 10.6 %; NRBC Per 100 WBC 0 X 10*3/uL (0.00-0.01); Neutrophils # (A) 5.07 X 10*3/uL (1.80-7.70); Platelet Count 220 X 10*3/uL (140-440); WBC 7.57 X 10*3/uL (4.50-10.00)
[2023-02-11 11:03] LABS: ALT 41 U/L (10-49); AST 22 U/L (14-35); Albumin 3.6 d/dL (3.8-4.9); Albumin/Globulin Ratio 1.44 Ratio (1.60-3.17); Alkaline Phosphatase 70 U/L (41-126); BUN/Creat Ratio 22.56 Ratio (12.00-20.00); Blood Urea Nitrogen 20.3 mg/dL (9.0-27.0); Carbon Dioxide 26.7 mmol/L (21.6-31.8); Chloride 103 mmol/L (96-109); Globulin 2.5 d/dL (1.6-3.3); Glucose 215 mg/dL (70-110); Potassium 3.7 mmol/L (3.5-5.5); Sodium 141 mmol/L (135-145); Total Bilirubin <0.2 mg/dL (0.3-1.2); Total Protein 6.1 d/dL (6.2-8.2)
[2023-02-11] MEDS: NYSTATIN 100,000UNIT/GM CREAM 30 GM TUBE TOPICAL SCH ×2 (11:11→20:48)
[2023-02-11] MEDS: TRIAMCINOLONE 0.1% CREAM 80 GM TUBE TOPICAL SCH ×2 (11:11→20:48)
[2023-02-11 11:52] LABS: Glucose,Whole Blood 210 mg/dL (70-110)
[2023-02-11 11:52] LABS: Glucose,Whole Blood 506 mg/dL (70-110)
--- NOTE | 2023-02-11 12:17 | P.PN ---
Subjective Progress Note Date: 02/11/23 Principal diagnosis: Bilateral lower extremity cellulitis and rash Patient is a 52-year-old male with a past medical history significant for hypertension hyperlipidemia and diabetes mellitus patient did have a prior umbilical hernia repair subsequently did develop abdominal wall abscess with abdominal wound treated with a wound VAC now presented to hospital with swelling redness and itching to bilateral lower extremity and consult for possible cellulitis. Patient did have a CT of abdominal pelvis mention near complete resolution of the abdominal wall fluid collection. On today's evaluation that is 02/11/2023, the patient continues to be afebrile the patient is breathing comfortably on room air, the patient denies chest pain, shortness of breath or cough, patient denies abdominal pain, no nausea/vomiting and no diarrhea , the patient itching erythematous rash to the upper and lower extremity has significantly decreased in intensity, patient is feeling better and no new symptoms The patient did have a white count of 7.57, creatinine 0.9 Objective - Vital Signs Vital signs: Vital Signs Temp 97.6 F 02/11/23 07:12 Pulse 65 02/11/23 07:12 Resp 18 02/11/23 07:12 BP 147/76 02/11/23 07:12 Pulse Ox 96 02/11/23 07:12 FiO2 Intake & Output 02/10/23 02/11/23 02/11/23 18:59 06:59 18:59 Other: Voiding Method Toilet Toilet # Voids 3 0 # Bowel Movements 0 - Exam GENERAL DESCRIPTION: Middle-age male up in bed in no distress RESPIRATORY SYSTEM: Unlabored breathing , decreased breath sounds at bases HEART: S1 S2 regular rate and rhythm , ABDOMEN: Soft , no tenderness, abdominal wound looks clean with no slough tissue or drainage EXTREMITIES: Bilateral lower extremity with swelling and erythematous rash has decreased in intensity did have mostly dry scaly skin - Labs CBC & Chem 7: 02/11/23 04:59 02/11/23 04:59 Labs: Abnormal Lab Results - Last 24 Hours (Table) 02/10/23 02/10/23 02/11/23 Range/Units 16:39 19:39 04:59 BUN/Creatinine Ratio 22.56 H (12.00-20.00) Ratio Glucose 215 H (70-110) mg/dL POC Glucose (mg/dL) 313 H 322 H (70-110) mg/dL Total Bilirubin <0.2 L (0.3-1.2) mg/dL Total Protein 6.1 L (6.2-8.2) d/dL Albumin 3.6 L (3.8-4.9) d/dL Albumin/Globulin Ratio 1.44 L (1.60-3.17) Ratio 02/11/23 02/11/23 02/11/23 Range/Units 06:03 11:49 11:50 BUN/Creatinine Ratio (12.00-20.00) Ratio Glucose (70-110) mg/dL POC Glucose (mg/dL) 213 H 506 H 210 H (70-110) mg/dL Total Bilirubin (0.3-1.2) mg/dL Total Protein (6.2-8.2) d/dL Albumin (3.8-4.9) d/dL Albumin/Globulin Ratio (1.60-3.17) Ratio Assessment and Plan (1) Rash Current Visit: Yes Status: Acute Code(s): R21 - RASH AND OTHER NONSPECIFIC SKIN ERUPTION SNOMED Code(s): 006390578 (2) Cellulitis Current Visit: Yes Status: Acute Code(s): L03.90 - CELLULITIS, UNSPECIFIED SNOMED Code(s): 497819717 (3) Diabetes with skin ulcer Current Visit: No Status: Acute Code(s): E11.622 - TYPE 2 DIABETES MELLITUS WITH OTHER SKIN ULCER; L98.499 - NON-PRESSURE CHRONIC ULCER OF SKIN OF SITES W UNSP SEVERITY SNOMED Code(s): 61253807 Plan: 1patient present hospital diffuse swelling and redness to the bilateral lower extremity concerning for cellulitis likely from gram-positive skin cat gram- negative infection less likely diastolic keeping in mind the patient multiple recent hospitalization 2-patient also have a history of abdominal wall abscess with recent CT shows almost complete resolution. 3local care to the lower extremity dry scaly skin should be washed out with a warm moist washcloth afterwards apply Mycolog cream twice a day then Faustino wrap to keep the swelling down 4-patient did have extensive rash could be a drug-related And the likely drug causing these rash could be lisinopril which was discontinued, Coreg has been added for blood pressure, and the patient blood pressure is better controlled 5-patient has shown clinical improvement with low clinical suspicious for cellulitis, will monitor closely off antibiotic therapy may and we'll discontinue prednisone Dictation was produced using [employer] software. please excuse any grammatical, word or spelling errors.
[2023-02-11] MEDS: diphenhydrAMINE 25 MG CAP PO PRN ×2 (12:36→20:46)
[2023-02-11 16:37] LABS: Glucose,Whole Blood 411 mg/dL (70-110)
[2023-02-11 16:40] LABS: Glucose,Whole Blood 432 mg/dL (70-110)
[2023-02-11] MEDS ORDERED: INSULIN ASPART (NovoLOG) 100 UNIT/ML VIAL SQ ONE (18:02)
[2023-02-11] MEDS: ATORVASTATIN 10 MG TAB PO SCH (20:47)
[2023-02-11 21:34] LABS: Glucose,Whole Blood 199 mg/dL (70-110)
[2023-02-12] MEDS: carvediloL 6.25 MG TAB PO SCH ×2 (06:07→17:38)
[2023-02-12] MEDS: PANTOPRAZOLE 40 MG TABLET PO SCH ×2 (06:07→17:38)
[2023-02-12] MEDS: GLIMEPIRIDE 2 MG TAB PO SCH (06:07)
[2023-02-12] MEDS: diphenhydrAMINE 25 MG CAP PO PRN ×3 (06:07→18:06)
[2023-02-12 06:09] LABS: Glucose,Whole Blood 189 mg/dL (70-110)
[2023-02-12] MEDS: INSULIN ASPART (NovoLOG) 100 UNIT/ML VIAL SQ SCH ×5 (06:11→21:05)
--- NOTE | 2023-02-12 08:07 | PN ---
PROGRESS NOTE A 52-year-old. Bilateral lower extremity edema with cellulitis. IV Lasix his infection is getting better. seen him for infections and cellulitis of the legs. OBJECTIVE: VITAL SIGNS: Stable. Afebrile. CARDIOVASCULAR: S1, S2. LUNGS: Clear. GI: Abdomen is soft. HEMATOLOGY: Negative Homans. PSYCH: Fair mood and affect. diabetes mellitus. Continue on GERD medicine, breathing treatments. Prognosis is guarded. MMODL / IJN: [id number] /
[2023-02-12] MEDS: HYDROcodone/APAP 7.5-325MG 1 EACH TAB PO SCH ×3 (09:22→22:21)
[2023-02-12] MEDS: DAPAGLIFLOZIN PROPANEDIOL 10 MG TABLET PO SCH (09:25)
[2023-02-12] MEDS: PREGABALIN 100 MG CAP PO SCH ×3 (09:25→22:22)
[2023-02-12] MEDS: SEVELAMER 800 MG TAB PO SCH (09:26)
[2023-02-12] MEDS: metFORMIN 500 MG TAB PO SCH ×2 (09:26→21:05)
[2023-02-12] MEDS: FUROSEMIDE 10 MG/ML 4 ML VIAL IV SCH (09:28)
[2023-02-12] MEDS: TRIAMCINOLONE 0.1% CREAM 80 GM TUBE TOPICAL SCH ×2 (09:33→22:00)
[2023-02-12] MEDS: NYSTATIN 100,000UNIT/GM CREAM 30 GM TUBE TOPICAL SCH ×2 (09:33→22:00)
[2023-02-12 11:43] LABS: Glucose,Whole Blood 291 mg/dL (70-110)
[2023-02-12 13:26] VITALS: BMI 31.5
[2023-02-12] MEDS: FUROSEMIDE 40 MG TAB PO SCH (16:17)
[2023-02-12 16:32] LABS: Glucose,Whole Blood 260 mg/dL (70-110)
[2023-02-12 20:24] LABS: Glucose,Whole Blood 363 mg/dL (70-110)
[2023-02-12] MEDS: ATORVASTATIN 10 MG TAB PO SCH (21:05)
[2023-02-13 06:48] LABS: Glucose,Whole Blood 231 mg/dL (70-110)
[2023-02-13] MEDS: INSULIN ASPART (NovoLOG) 100 UNIT/ML VIAL SQ SCH ×2 (07:27→13:04)
[2023-02-13] MEDS: DAPAGLIFLOZIN PROPANEDIOL 10 MG TABLET PO SCH (07:29)
[2023-02-13] MEDS: SEVELAMER 800 MG TAB PO SCH (07:29)
[2023-02-13] MEDS: carvediloL 6.25 MG TAB PO SCH (07:30)
[2023-02-13] MEDS: PREGABALIN 100 MG CAP PO SCH (07:30)
[2023-02-13] MEDS: HYDROcodone/APAP 7.5-325MG 1 EACH TAB PO SCH (07:30)
[2023-02-13] MEDS: metFORMIN 500 MG TAB PO SCH (07:31)
[2023-02-13] MEDS: PANTOPRAZOLE 40 MG TABLET PO SCH (07:31)
[2023-02-13] MEDS: GLIMEPIRIDE 2 MG TAB PO SCH (07:31)
[2023-02-13] MEDS: FUROSEMIDE 40 MG TAB PO SCH (07:32)
[2023-02-13 07:39] VITALS: BP 125/78; PULSE 78; RESP 16; TEMP 97.5
[2023-02-13] MEDS: diphenhydrAMINE 25 MG CAP PO PRN (08:28)
[2023-02-13] MEDS ORDERED: INSULIN DETEMIR (LEVEMIR) 100 UNIT/ML SYR SQ SCH (09:00)
[2023-02-13] MEDS: NYSTATIN 100,000UNIT/GM CREAM 30 GM TUBE TOPICAL SCH (10:13)
[2023-02-13] MEDS: TRIAMCINOLONE 0.1% CREAM 80 GM TUBE TOPICAL SCH (10:18)
[2023-02-13 11:47] LABS: Glucose,Whole Blood 193 mg/dL (70-110)
== END 2023-02-13 15:34 | disposition home health service (06) | DRG 380 ==
LOC: EC 19:34 → 5NMEDONC 02-05 03:08 → 1SOBS 02-05 04:13 → 4SSUR 02-05 17:54
PROVIDERS: ADMIT Family Medicine; ATTEND Family Medicine
DX: E11.628 Type 2 diabetes mellitus with other skin complications (principal); L97.512 Non-pressure chronic ulcer of other part of right foot with fat layer exposed; L97.522 Non-pressure chronic ulcer of other part of left foot with fat layer exposed; E11.621 Type 2 diabetes mellitus with foot ulcer; E11.622 Type 2 diabetes mellitus with other skin ulcer; E78.5 Hyperlipidemia, unspecified; I11.0 Hypertensive heart disease with heart failure; I50.33 Acute on chronic diastolic (congestive) heart failure; L03.115 Cellulitis of right lower limb; L03.116 Cellulitis of left lower limb; L50.9 Urticaria, unspecified; L98.492 Non-pressure chronic ulcer of skin of other sites with fat layer exposed; T81.31XA Disruption of external operation (surgical) wound, not elsewhere classified, initial encounter; Z79.84 Long term (current) use of oral hypoglycemic drugs; Z79.899 Other long term (current) drug therapy; Z83.3 Family history of diabetes mellitus; Z87.891 Personal history of nicotine dependence
CPT/HCPCS: 36415; 71250; 74177; 76700; 80053; 80143; 80179; 80202; 80320; 82140; 82565; 83036; 83605; 83735; 83880; 84100; 85025; 85652; 86038; 86140; 93306; 93970; 96365; 96366; 96367; 96375; 99285

== ENCOUNTER → 2023-04-02 | Outpatient (CLI) | payer OTHER ==
--- NOTE | 2023-04-03 08:07 | US ---
EXAMINATION TYPE: US arterial LE single level DATE OF EXAM: 04/02/2023 3:02 PM CLINICAL INDICATION: Male, 52 years old with history of E08.621 DIABETES MELLITUS DUE TO UNDERLLYING CONDI; Prior 2018 History of: Smoker: Previous Hypertension: No Diabetic: Yes Hyperlipidemia: No TIA/CVA: No Previous Vascular Surgery: No CAD: NO IL: no Vascular Ulcers: Yes Claudication: No Gangrene: No Right Brachial Pressure: 118 Left Brachial Pressure: 122 Ankle-Brachial Indices: Right: 0.98 Left: 0.95 Toe Brachial Indices: Right: 0.90 Left: 0.77 Monophasic waveforms are present within the dorsalis pedis and distal extremity digits. Biphasic wave forms are in the more proximal lower extremity arterial system IMPRESSION: 1. Mild to moderate narrowing left distal lower extremity at the great toe.
== END | disposition home or self-care (01) ==
LOC: RADUSWWP 14:11
PROVIDERS: ATTEND Thoracic Surgery (Cardiothoracic Vascular Surgery)
DX: E08.621 Diabetes mellitus due to underlying condition with foot ulcer (principal); L97.522 Non-pressure chronic ulcer of other part of left foot with fat layer exposed
CPT/HCPCS: 93922

== ENCOUNTER 2023-05-14 14:51 | Inpatient (IN) | payer OTHER ==
[2023-05-14] MEDS ORDERED: VANCOMYCIN IV PER PHARMACY 1 EACH MISC MISCELLANE PRN (15:19)
[2023-05-14 15:26] LABS: Basophils # (A) 0.1 k/uL (0-0.2); Basophils % (A) 0 %; Eosinophils # (A) 0.2 k/uL (0-0.7); Eosinophils % (A) 1 %; HCT 40.9 % (39.0-53.0); HGB 13.4 gm/dL (13.0-17.5); Lymphocytes % (A) 9 %; MCH 31.4 pg (25.0-35.0); MCHC 32.9 g/dL (31.0-37.0); MCV 95.6 fL (80.0-100.0); Mean Platelet Volume 8.1; Monocytes # (A) 0.5 k/uL (0-1.0); Monocytes % (A) 4 %; Neutrophils # (A) 10.2 k/uL (1.3-7.7); Neutrophils % (A) 84 %; Platelet Count 297 k/uL (150-450); RBC 4.28 m/uL (4.30-5.90); RDW 13.3 % (11.5-15.5); WBC 12.1 k/uL (3.8-10.6)
--- NOTE | 2023-05-14 15:26 | ED ---
General Adult HPI - General Chief complaint: Wound/Laceration Stated complaint: referal, Time Seen by Provider: 05/14/23 15:06 Source: patient Mode of arrival: wheelchair Limitations: no limitations - History of Present Illness Initial comments: Dictation was produced using [employer] dictation software. please excuse any grammatical, word or spelling errors. Chief Complaint: 52-year-old male with diabetes, peripheral vascular disease is edema hypertension presents to the ER from one clinic for left foot wound History of Present Illness: Patient is 52-year-old male presents emergency department for left foot wound. Patient has had a chronic wound to his left foot however spent getting worse. He was seen at the wound clinic today. He was told to come to the ER to be admitted. According to Dr. Vizcaino who is the workforce development specialist states that he is concerned that there is a foot abscess. States that he has not been doing well clinically on outpatient basis and felt that he should be admitted to the hospital for further care. Chin states that he has known history of peripheral vascular disease. States that he needs a r evascularization procedure. . Denies any pain. Denies any fever or constitutional symptoms. The ROS documented in this emergency department record has been reviewed and confirmed by me. Those systems with pertinent positive or negative responses have been documented in the HPI. All other systems are other negative and/or noncontributory. - Related Data Home Medications Medication Instructions Recorded Confirmed Empagliflozin [Jardiance] 25 mg PO DAILY 11/09/21 05/14/23 HYDROcodone/APAP 7.5-325MG [[place] 1 tab PO TID 11/09/21 05/14/23 7.5-325] Simvastatin [Zocor] 20 mg PO DAILY 11/09/21 05/14/23 sitaGLIPtin [Januvia] 100 mg PO DAILY 11/09/21 05/14/23 Famotidine 20 mg PO BID 07/01/22 05/14/23 Sevelamer [Renvela] 800 mg PO W/SUPPER 07/01/22 05/14/23 Ergocalciferol [Vitamin D2 (1250 1,250 mcg PO MO 10/01/22 05/14/23 Mcg = 55442 Iu)] metFORMIN HCL 1,000 mg PO BID 10/01/22 05/14/23 Terbinafine [LamISIL] 250 mg PO DAILY 02/05/23 05/14/23 Furosemide [Lasix] 40 mg PO DAILY 05/14/23 05/14/23 Pregabalin [Lyrica] 200 mg PO TID 05/14/23 05/14/23 Allergies Allergy/AdvReac Type Severity Reaction Status Date / Time No Known Allergies Allergy Verified 05/14/23 16:54 Review of Systems ROS Statement: Those systems with pertinent positive or pertinent negative responses have been documented in the HPI. ROS Other: All systems not noted in ROS Statement are negative. Past Medical History Past Medical History: Diabetes Mellitus, Hyperlipidemia, Hypertension Additional Past Medical History / Comment(s): STATES SORE ON THE BOTTOM OF LEFT FOOT. History of Any Multi-Drug Resistant Organisms: VRE Date of last positivie culture/infection: 10/02/22 MDRO Source:: Abdomen Past Surgical History: Hernia Repair Past Anesthesia/Blood Transfusion Reactions: No Reported Reaction Additional Past Anesthesia/Blood Transfusion Reaction / Comment(s): PT HAS NEVER RECEIVED ANESTHESIA. Past Psychological History: Anxiety Smoking Status: Former smoker Past Alcohol Use History: Occasional Past Drug Use History: None Reported - Past Family History Mother Family Medical History: Diabetes Mellitus Father Family Medical History: Cancer General Exam - General Exam Comments Initial Comments: PHYSICAL EXAM: General Impression: Alert and oriented x3, not in acute distress HEENT: Normocephalic atraumatic, extra-ocular movements intact, pupils equal and reactive to light bilaterally, mucous membranes moist. Cardiovascular: Heart regular rate and rhythm Chest: Able to complete full sentences, no retractions, no tachypnea Abdomen: abdomen soft, non-tender, non-distended, no organomegaly Musculoskeletal: no peripheral edema Motor: no focal deficits noted Neurological: CN II-XII grossly intact, no focal motor deficits noted. Has reported decreased sensation to light touch in the bilateral feet Left foot: multiple erythematous draining wounds to the lower foot on the plantar surface, there is a questionable fluctuant area at the arch medially Psych: Normal affect and mood Limitations: no limitations Course Vital Signs 05/14/23 14:52 Temperature 98.0 F Pulse Rate 87 Respiratory 16 Rate Blood Pressure 134/54 O2 Sat by Pulse 99 Oximetry Medical Decision Making - Medical Decision Making Was pt. sent in by a medical professional or institution (, PA, SCREEN TACKER, urgent care, hospital, or senior care...) When possible be specific @ -Sent in by Dr. Vizcaino at the wound clinic Did you speak to anyone other than the patient for history (EMS, parent, family, police, friend...)? What history was obtained from this source @ -No Did you review nursing and triage notes (agree or disagree)? Why? @ -I reviewed and agree with nursing and triage notes Were old charts reviewed (outside hosp., previous admission, EMS record, old EKG, old radiological studies, urgent care reports/EKG's, senior care records)? Report findings @ -No old charts were reviewed Differential Diagnosis (chest pain, altered mental status, abdominal pain women, abdominal pain men, vaginal bleeding, musculoskeletal, weakness, fever, dyspnea, syncope, headache, dizziness, GI bleed, back pain, seizure, CVA, palpatations, mental health)? @ -not applicable EKG interpreted by me (3pts min.). @ -None done X-rays interpreted by me (1pt min.). @ -Foot x-ray shows diffuse soft tissue edema. To be some soft tissue gas CT interpreted by me (1pt min.). @ -None done U/S interpreted by me (1pt. min.). @ -None done What testing was considered but not performed or refused? (CT, X-rays, U/S, labs)? Why? @ -None What meds were considered but not given or refused? Why? @ -None Did you discuss the management of the patient with other professionals (professionals i.e. , PA, SCREEN TACKER, lab, RT, psych nurse, social group worker, director of quantitative research, teacher, bomb squad officer, mattress spring encaser)? Give summary @ -Case discussed with vascular surgery along with hospitalist for admission Was smoking cessation discussed for >3mins.? @ -No Was critical care preformed (if so, how long)? @ -No Were there social determinants of health that impacted care today? How? (Homelessness, low income, unemployed, alcoholism, drug addiction, transportation, low edu. Level, literacy, decrease access to med. care, fpc, rehab)? @ -No Was there de-escalation of care discussed even if they declined (Discuss DNR or withdrawal of care, Hospice)? DNR status @ -No What co-morbidities impacted this encounter? (DM, HTN, Smoking, COPD, CAD, C ancer, CVA, ARF, Chemo, Hep., AIDS, mental health diagnosis, sleep apnea, morbid obesity)? @ -None Was patient admitted / discharged? Hospital course, mention meds given and route, prescriptions, significant lab abnormalities, going to OR and other pertinent info. @ -52-year-old male sent in from the wound clinic for worsening foot wound. Vital signs stable. Patient will appear at the bedside. Mild leukocytosis of 12.1. Renal markers are within acceptable limits. No lactic acidosis. Rest of less than acceptable limits. X-ray shows questionable subcutaneous gas raising the suspicion of possible necrotizing infection. Case is discussed with vascular surgery to Dr. Domínguez of vascular surgery did evaluate the patient at bedside requested CT imaging of the leg. States that he'll likely need operative intervention however his click or presentation was not suspicious for acute necrotizing wound. Patient started on broad-spectrum antibiotics Undiagnosed new problem with uncertain prognosis? @ -No Drug Therapy requiring intensive monitoring for toxicity (Heparin, Nitro, Insulin, Cardizem)? @ -No Were any procedures done? @ -No Diagnosis/symptom? Acute, or Chronic, or Acute on Chronic? Uncomplicated (without systemic symptoms) or Complicated (systemic symptoms)? @ -Left foot wound Side effects of treatment? @ -No Exacerbation, Progression, or Severe Exacerbation? @ -No Poses a threat to life or bodily function? How? (Chest pain, [place], [place], pneumonia, PE, COPD, DKA, ARF, appy, cholecystitis, CVA, Diverticulitis, Homicidal, Suicidal, threat to staff... and all critical care pts) @ -yes - Lab Data Result diagrams: 05/14/23 14:56 05/14/23 14:56 Lab Results 05/14/23 05/14/23 05/14/23 Range/Units 14:56 14:56 15:31 WBC 12.1 H (3.8-10.6) k/uL RBC 4.28 L (4.30-5.90) m/uL Hgb 13.4 (13.0-17.5) gm/dL Hct 40.9 (39.0-53.0) % MCV 95.6 (80.0-100.0) fL MCH 31.4 (25.0-35.0) pg MCHC 32.9 (31.0-37.0) g/dL RDW 13.3 (11.5-15.5) % Plt Count 297 (150-450) k/uL MPV 8.1 Neutrophils % 84 % Lymphocytes % 9 % Monocytes % 4 % Eosinophils % 1 % Basophils % 0 % Neutrophils # 10.2 H (1.3-7.7) k/uL Lymphocytes # 1.0 (1.0-4.8) k/uL Monocytes # 0.5 (0-1.0) k/uL Eosinophils # 0.2 (0-0.7) k/uL Basophils # 0.1 (0-0.2) k/uL Sodium 135 L (137-145) mmol/L Potassium 4.0 (3.5-5.1) mmol/L Chloride 106 (98-107) mmol/L Carbon Dioxide 21 L (22-30) mmol/L Anion Gap 8 mmol/L BUN 18 (9-20) mg/dL Creatinine 0.80 (0.66-1.25) mg/dL Est GFR (CKD-EPI)AfAm >90 (>60 ml/min/1.73 sqM) Est GFR (CKD-EPI)NonAf >90 (>60 ml/min/1.73 sqM) Glucose 188 H (74-99) mg/dL Plasma Lactic Acid Juan 1.6 (0.7-2.0) mmol/L Calcium 8.9 (8.4-10.2) mg/dL Magnesium 2.1 (1.6-2.3) mg/dL Total Bilirubin 0.6 (0.2-1.3) mg/dL AST 46 (17-59) U/L ALT 109 H (4-49) U/L Alkaline Phosphatase 139 H (38-126) U/L Total Protein 7.2 (6.3-8.2) g/dL Albumin 3.4 L (3.5-5.0) g/dL Disposition Clinical Impression: Leg wound, left Disposition: ADMITTED IP TO THIS HOSP Condition: Critical Decision Time: 17:01
[2023-05-14] MEDS: PIPERACILLIN-TAZOBACTAM 3.375 GM in SODIUM CHLORIDE 0.9% 100 ML IVPB STA (15:32)
--- NOTE | 2023-05-14 15:46 | XR ---
EXAMINATION TYPE: XR foot complete LT DATE OF EXAM: 05/14/2023 COMPARISON: 01/02/2018. HISTORY: Nonhealing wound TECHNIQUE: Three views are submitted. FINDINGS: There is a chronic deformity of the tarsal metatarsal junction with pes planus deformity. Diffuse sof t tissue edema suspected ulcerated along the plantar surface of the foot. There is air in the subcuta neous tissue suggestive of gas-forming infection. Arthropathy along the tarsal metatarsal junction of all digits most marked involving the first digit. There may be some subluxation of the second metatarsal relative to is corresponding tarsal joints. C hronic Lisfranc injury in the differential diagnosis. Charcot joint also a consideration. Diffuse ost eopenia. Remote trauma to the third metatarsal. No overt destructive changes. IMPRESSION: 1. Diffuse soft tissue edema most suggestive plantar surface ulceration. Air in the subcutaneous tiss ues suggest gas-forming infectious cellulitis correlate clinically. 2. No overt destructive changes to suggest osteomyelitis. 3. Marked deformity of the foot may represent Charcot joint related to previous trauma. Articulation of the second tarsometatarsal junction is offset and a chronic Lisfranc injury in the differential di agnosis
[2023-05-14 15:48] LABS: ALT 109 U/L (4-49); African American GFR (CKD) >90 (>60 ml/min/1.73 sqM); Albumin 3.4 g/dL (3.5-5.0); Anion Gap 8 mmol/L; Blood Urea Nitrogen 18 mg/dL (9-20); Calcium 8.9 mg/dL (8.4-10.2); Carbon Dioxide 21 mmol/L (22-30); Chloride 106 mmol/L (98-107); Glucose 188 mg/dL (74-99); Magnesium 2.1 mg/dL (1.6-2.3); Non-African American GFR(CKD) >90 (>60 ml/min/1.73 sqM); Sodium 135 mmol/L (137-145); Total Bilirubin 0.6 mg/dL (0.2-1.3)
[2023-05-14 15:52] LABS: AST 46 U/L (17-59); Alkaline Phosphatase 139 U/L (38-126); Total Protein 7.2 g/dL (6.3-8.2)
[2023-05-14] MEDS ORDERED: MORPHINE SULFATE 4 MG/ML SYRINGE IV PRN (15:57)
[2023-05-14] MEDS ORDERED: NALOXONE 0.4 MG/ML 1 ML VIAL IV PRN (15:57)
[2023-05-14] MEDS ORDERED: ACETAMINOPHEN TAB 325 MG TAB PO PRN (15:57)
[2023-05-14] MEDS: VANCOMYCIN 1,750 MG in SODIUM CHLORIDE 0.9% 500 ML 500 ML IVPB ONE (16:19)
[2023-05-14] MEDS: SODIUM CHLORIDE 0.9% 1,000 ML IV SCH (16:19)
--- NOTE | 2023-05-14 17:48 | CT ---
EXAMINATION TYPE: CT lower extremity LT w con CT DLP: 101.5 mGycm, Automated exposure control for dose reduction was used. DATE OF EXAM: 05/14/2023 5:30 PM COMPARISON: Extremity radiograph 05/14/2023. CLINICAL INDICATION:Male, 52 years old with history of leg wound; PHH, Wound bottom of LT foot TECHNIQUE: Axial images were obtained of the CT lower extremity LT w con, Additional coronal and sagi ttal reformatted images and soft tissue and bone window were obtained for review. 3-D reconstruction was created on a separate workstation. Contrast used:100 mL of Isovue 300 with IV Contrast, (None if empty) Oral contrast used: (None if empty) FINDINGS: Diffuse soft tissue swelling throughout the left lower extremity subcutaneous tissues. No o rganizing fluid collection visualized. There is severe degeneration changes of the midfoot joints wit h joint space narrowing and osteophyte formation. Soft tissue wound over the dorsal foot with gas pre sent. No osseous erosion to suggest osteomyelitis. No evidence of fracture. IMPRESSION: 1. Subcutaneous gas along the dorsal foot with skin defect noted definitive osseous erosion at this time or evidence for abscess formation. 2. Moderate to severe degeneration changes of the midfoot joints could represent underlying early Ch arcot osteoarthropathy.
[2023-05-14] MEDS: carvediloL 6.25 MG TAB PO SCH (18:24)
[2023-05-14] MEDS ORDERED: PIPERACILLIN-TAZOBACTAM 3.375 GM in SODIUM CHLORIDE 0.9% 100 ML IVPB SCH (20:00)
[2023-05-14] MEDS: FAMOTIDINE 20 MG TAB PO SCH (20:40)
[2023-05-14] MEDS: ATORVASTATIN 10 MG TAB PO SCH (20:40)
[2023-05-14] MEDS: CEFEPIME 2 GM in SODIUM CHLORIDE 0.9% 100 ML IVPB SCH (20:41)
[2023-05-14] MEDS: metroNIDAZOLE 500 MG TAB PO SCH (21:18)
[2023-05-14] MEDS: HYDROcodone/APAP 7.5-325MG 1 EACH TAB PO SCH (21:18)
[2023-05-15] MEDS: VANCOMYCIN 1,750 MG in SODIUM CHLORIDE 0.9% 500 ML 500 ML IVPB SCH ×2 (04:09→15:35)
[2023-05-15] MEDS ORDERED: INSULIN DETEMIR (LEVEMIR) 100 UNIT/ML SYR SQ SCH (07:00)
[2023-05-15] MEDS ORDERED: GLIMEPIRIDE 2 MG TAB PO SCH (07:30)
--- NOTE | 2023-05-15 07:52 | P.GSCN ---
History of Present Illness Consult date: 05/14/23 History of present illness: Devon is a 52-year-old male in today for evaluation of his diabetic foot wound. He was being seen in wound care and has a chronic lower extremity wound on his left. He was seeing his library media specialist and was sent here with concern for potential abscess. Thought was the patient needs antibiotic workup for potential operative debridement. Patient denies any fevers, chills, nausea or vomiting. He states he feels his relative same. He denies any pain. Past Medical History Past Medical History: Diabetes Mellitus, Hyperlipidemia, Hypertension Additional Past Medical History / Comment(s): STATES SORE ON THE BOTTOM OF LEFT FOOT. History of Any Multi-Drug Resistant Organisms: VRE Year Discovered:: 10/02/22 MDRO Source:: Abdomen Past Surgical History: Hernia Repair Past Anesthesia/Blood Transfusion Reactions: No Reported Reaction Additional Past Anesthesia/Blood Transfusion Reaction / Comm: PT HAS NEVER RECEIVED ANESTHESIA. Past Psychological History: Anxiety Smoking Status: Former smoker Past Alcohol Use History: Occasional Past Drug Use History: None Reported - Past Family History Mother Family Medical History: Diabetes Mellitus Father Family Medical History: Cancer Medications and Allergies Home Medications Medication Instructions Recorded Confirmed Type Empagliflozin [Jardiance] 25 mg PO DAILY 11/09/21 05/14/23 History HYDROcodone/APAP 7.5-325MG [[place] 1 tab PO TID 11/09/21 05/14/23 History 7.5-325] Simvastatin [Zocor] 20 mg PO DAILY 11/09/21 05/14/23 History sitaGLIPtin [Januvia] 100 mg PO DAILY 11/09/21 05/14/23 History Famotidine 20 mg PO BID 07/01/22 05/14/23 History Sevelamer [Renvela] 800 mg PO W/SUPPER 07/01/22 05/14/23 History Ergocalciferol [Vitamin D2 (1250 1,250 mcg PO MO 10/01/22 05/14/23 History Mcg = 17847 Iu)] metFORMIN HCL 1,000 mg PO BID 10/01/22 05/14/23 History Terbinafine [LamISIL] 250 mg PO DAILY 02/05/23 05/14/23 History Furosemide [Lasix] 40 mg PO DAILY 05/14/23 05/14/23 History Multivitamins, Thera [Multivitamin 1 tab PO DAILY 05/14/23 05/14/23 History (formulary)] Pregabalin [Lyrica] 200 mg PO TID 05/14/23 05/14/23 History lisinopriL [Zestril] 20 mg PO DAILY 05/14/23 05/14/23 History Allergies Allergy/AdvReac Type Severity Reaction Status Date / Time No Known Allergies Allergy Verified 05/14/23 16:54 Surgical - Exam Vital Signs Temp Pulse Resp BP Pulse Ox 98.0 F 87 16 134/54 99 05/14/23 14:52 05/14/23 14:52 05/14/23 14:52 05/14/23 14:52 05/14/23 14:52 Gen. a pleasant cooperative male in no acute distress. Alert and oriented. Normocephalic, atraumatic, extraocular motion intact. Heart appears regular at this time. Lungs are clear without respiratory distress. Abdomen is soft. Obese, nontender nondistended. Extremities show no significant edema. Palpable dorsalis pedis on the left There is a Charcot foot. There is chronic venous stasis changes of the lower extremity. On the rock her bottom portion of the foot there are 3 separate wounds on the heel with a more distal wound at the plantar portion. The wounds at the heel were sharply debrided with scissors and opened to allow for evaluation of the wound. It did appear to track altogether. There was minimal seropurulent drainage.. Results X-rays reviewed, evidence of wound without tracking gas. - Labs 05/14/23 14:56 05/14/23 14:56 Abnormal Lab Results - Last 24 Hours (Table) 05/14/23 05/14/23 Range/Units 14:56 14:56 WBC 12.1 H (3.8-10.6) k/uL RBC 4.28 L (4.30-5.90) m/uL Neutrophils # 10.2 H (1.3-7.7) k/uL Sodium 135 L (137-145) mmol/L Carbon Dioxide 21 L (22-30) mmol/L Glucose 188 H (74-99) mg/dL ALT 109 H (4-49) U/L Alkaline Phosphatase 139 H (38-126) U/L Albumin 3.4 L (3.5-5.0) g/dL Diabetes panel 05/14/23 Range/Units 14:56 Sodium 135 L (137-145) mmol/L Potassium 4.0 (3.5-5.1) mmol/L Chloride 106 (98-107) mmol/L Carbon Dioxide 21 L (22-30) mmol/L BUN 18 (9-20) mg/dL Creatinine 0.80 (0.66-1.25) mg/dL Glucose 188 H (74-99) mg/dL Calcium 8.9 (8.4-10.2) mg/dL AST 46 (17-59) U/L ALT 109 H (4-49) U/L Alkaline Phosphatase 139 H (38-126) U/L Total Protein 7.2 (6.3-8.2) g/dL Albumin 3.4 L (3.5-5.0) g/dL Calcium panel 05/14/23 Range/Units 14:56 Calcium 8.9 (8.4-10.2) mg/dL Albumin 3.4 L (3.5-5.0) g/dL Pituitary panel 05/14/23 Range/Units 14:56 Sodium 135 L (137-145) mmol/L Potassium 4.0 (3.5-5.1) mmol/L Chloride 106 (98-107) mmol/L Carbon Dioxide 21 L (22-30) mmol/L BUN 18 (9-20) mg/dL Creatinine 0.80 (0.66-1.25) mg/dL Glucose 188 H (74-99) mg/dL Calcium 8.9 (8.4-10.2) mg/dL Adrenal panel 05/14/23 Range/Units 14:56 Sodium 135 L (137-145) mmol/L Potassium 4.0 (3.5-5.1) mmol/L Chloride 106 (98-107) mmol/L Carbon Dioxide 21 L (22-30) mmol/L BUN 18 (9-20) mg/dL Creatinine 0.80 (0.66-1.25) mg/dL Glucose 188 H (74-99) mg/dL Calcium 8.9 (8.4-10.2) mg/dL Total Bilirubin 0.6 (0.2-1.3) mg/dL AST 46 (17-59) U/L ALT 109 H (4-49) U/L Alkaline Phosphatase 139 H (38-126) U/L Total Protein 7.2 (6.3-8.2) g/dL Albumin 3.4 L (3.5-5.0) g/dL Assessment and Plan Assessment: Infected diabetic foot wound Charcot foot Plan: At this point doubt necrotizing infection, likely evidence of mild gas due to recent wound care visit and abscess itself. No crepitus or tracking. At this time no emergent indication to go to operating room, will initiate antibiotics, admission, likely for OR tomorrow, keep nothing by mouth after midnight. Bedside debridement at this time shows no significant tunneling other than at the local portions of the wound at the heel. We will obtain computed tomography scan for further delineation of infection
[2023-05-15] MEDS: SEVELAMER 800 MG TAB PO SCH (08:14)
[2023-05-15] MEDS: FUROSEMIDE 40 MG TAB PO SCH (08:15)
[2023-05-15] MEDS: DAPAGLIFLOZIN PROPANEDIOL 10 MG TABLET PO SCH (08:15)
[2023-05-15] MEDS: LINAGLIPTIN 5 MG TABLET PO SCH (08:15)
[2023-05-15 08:28] LABS: Glucose,Whole Blood 304 mg/dL (70-110)
--- NOTE | 2023-05-15 08:44 | P.PN ---
Subjective Progress Note Date: 05/15/23 Principal diagnosis: Right foot wound Patient is seen and examined today as a follow-up. He underwent CT of the right lower extremity with contrast that is reporting subcutaneous gas along the dorsal foot with skin defect noted. Definitive osseous erosion at this time, or evidence for abscess formation. Moderate to severe degenerative changes of the midfoot joints could represent underlying early Charcot osteoarthropathy. Patient states no acute changes through the night. Preliminary wound culture for with moderate gram-positive cocci and gram-negative bacilli. Patient is afebrile. CT personally reviewed by Dr. Domínguez. Wound is on the plantar aspect not dorsal aspect of the foot as well as no subcutaneous air identified, area of concern is actually packing that was placed yesterday. Objective - Vital Signs Vital signs: Vital Signs Temp 98.6 F 05/15/23 06:11 Pulse 77 05/15/23 06:11 Resp 17 05/15/23 06:11 BP 127/62 05/15/23 06:11 Pulse Ox 99 05/15/23 06:11 FiO2 Intake & Output 05/14/23 05/15/23 05/15/23 18:59 06:59 18:59 Weight 104.326 kg - Exam General appearance: The patient is alert, oriented, appears in no acute distress. HET: Head is normocephalic and atraumatic. Neck: Supple. Heart: Regular. Lungs: Equal expansion, normal respiratory effort. Abdomen: Soft, obese, nondistended. Extremities: Left Charcot appearing foot with dressing with crowell drainage and malodorous. Supple. Full pedal pulses. Chronic venous stasis. 3 wounds on the plantar aspect of foot, heel wounds with packing. Neurological: No focal deficits. Strength and sensation are grossly intact. - Labs CBC & Chem 7: 05/14/23 14:56 05/14/23 14:56 Labs: Abnormal Lab Results - Last 24 Hours (Table) 05/14/23 05/14/23 Range/Units 14:56 14:56 WBC 12.1 H (3.8-10.6) k/uL RBC 4.28 L (4.30-5.90) m/uL Neutrophils # 10.2 H (1.3-7.7) k/uL Sodium 135 L (137-145) mmol/L Carbon Dioxide 21 L (22-30) mmol/L Glucose 188 H (74-99) mg/dL ALT 109 H (4-49) U/L Alkaline Phosphatase 139 H (38-126) U/L Albumin 3.4 L (3.5-5.0) g/dL Assessment and Plan Assessment: 1. Infected diabetic foot wound, left 2. Charcot foot 3. Diabetes mellitus Plan: 1. Tentative plan for possible excisional debridement today 2. Continue antibiotics per recommendations from infectious disease 3. Further recommendations forthcoming per vascular surgeon Thank you for this consultation, we will continue to follow. The impression and plan of care has been dictated as directed. I performed a history and examination of this patient, discussed the same with the dictator. I agree with the dictator's note ,documented as a scribe. Any additional findings or plans will be noted. Patient ate lunch, we will defer surgery debridement until a later time. Continue local wound care. Continue antibiotics.
[2023-05-15] MEDS ORDERED: FUROSEMIDE 40 MG TAB PO SCH (09:00)
--- NOTE | 2023-05-15 09:24 | P.CONS ---
History of Present Illness - Reason for Consult Consult date: 05/14/23 Foot wound Requesting physician: Vikram Coffman - Chief Complaint Left foot pain swelling redness x days - History of Present Illness Patient is a 52-year-old male with a past medical history negative for diabetes mellitus hypertension hyperlipidemia apparently patient did have a wound to his left foot that has been there for couple of weeks patient mention h e did have increasing swelling to the foot and subsequently has developed a blister that has opened leading to this ulceration patient apparently has been evaluated the wound care center concerning for an abscess for the patient was advised to go to the hospital patient be complaining of pain to the left foot wound to be more of a dull aching to throbbing moderate intensity without any radiation patient denies high-grade fever on presentation to the hospital patient was afebrile and no fever has been recorded subsequently patient was not tachycardic hypotensive or hypoxic he did have white count of 12.1 creatinine 0.80 ALT was mildly elevated patient did have a x-ray of the foot diffuse soft tissue edema air in the subcutaneous tissues suggesting gas-forming infection patient has been evaluated by vascular surgery did have a bedside debridement patient was started on Zosyn and vancomycin infectious disease was consulted for further management of antibiotic therapy Review of Systems Positive point and negatives has been mentioned in the HPI, complete review of systems was performed and all other systems are negative Past Medical History Past Medical History: Diabetes Mellitus, Hyperlipidemia, Hypertension Additional Past Medical History / Comment(s): STATES SORE ON THE BOTTOM OF LEFT FOOT. History of Any Multi-Drug Resistant Organisms: VRE Year Discovered:: 10/02/22 MDRO Source:: Abdomen Past Surgical History: Hernia Repair Past Anesthesia/Blood Transfusion Reactions: No Reported Reaction Additional Past Anesthesia/Blood Transfusion Reaction / Comm: PT HAS NEVER RECEIVED ANESTHESIA. Past Psychological History: Anxiety Smoking Status: Former smoker Past Alcohol Use History: Occasional Past Drug Use History: None Reported - Past Family History Mother Family Medical History: Diabetes Mellitus Father Family Medical History: Cancer Medications and Allergies Home Medications Medication Instructions Recorded Confirmed Type Empagliflozin [Jardiance] 25 mg PO DAILY 11/09/21 05/14/23 History HYDROcodone/APAP 7.5-325MG [[place] 1 tab PO TID 11/09/21 05/14/23 History 7.5-325] Simvastatin [Zocor] 20 mg PO DAILY 11/09/21 05/14/23 History sitaGLIPtin [Januvia] 100 mg PO DAILY 11/09/21 05/14/23 History Famotidine 20 mg PO BID 07/01/22 05/14/23 History Sevelamer [Renvela] 800 mg PO W/SUPPER 07/01/22 05/14/23 History Ergocalciferol [Vitamin D2 (1250 1,250 mcg PO MO 10/01/22 05/14/23 History Mcg = 50531 Iu)] metFORMIN HCL 1,000 mg PO BID 10/01/22 05/14/23 History Terbinafine [LamISIL] 250 mg PO DAILY 02/05/23 05/14/23 History Furosemide [Lasix] 40 mg PO DAILY 05/14/23 05/14/23 History Multivitamins, Thera [Multivitamin 1 tab PO DAILY 05/14/23 05/14/23 History (formulary)] Pregabalin [Lyrica] 200 mg PO TID 05/14/23 05/14/23 History lisinopriL [Zestril] 20 mg PO DAILY 05/14/23 05/14/23 History Vancomycin 1,500 mg IVPB Q12HR #84 each 05/22/23 Rx metroNIDAZOLE [Flagyl] 500 mg PO TID #90 tab 05/22/23 Rx ALPRAZolam [Xanax] 0.5 mg PO BID PRN tab 05/23/23 Rx Acetaminophen Tab [Tylenol] 650 mg PO Q6HR PRN tab 05/23/23 Rx INSULIN ASPART (NovoLOG) [NovoLOG 0 unit SQ ACHS each 05/23/23 Rx (formulary)] INSULIN ASPART (NovoLOG) [NovoLOG 3 unit SQ AC-TID each 05/23/23 Rx (formulary)] Insulin Detemir (Levemir) [Levemir] 15 unit SQ HS each 05/23/23 Rx Ipratropium-Albuterol Nebulize 3 ml INHALATION RT-QID 90 Days 05/23/23 Rx [Duoneb 0.5 mg-3 mg/3 ml Soln] #360 each carvediloL [Coreg] 6.25 mg PO BID-W/MEALS 90 Days 05/23/23 Rx #180 tab Allergies Allergy/AdvReac Type Severity Reaction Status Date / Time No Known Allergies Allergy Verified 05/14/23 16:54 Physical Exam Vitals: Vital Signs Temp Pulse Resp BP Pulse Ox 05/14/23 14:52 98.0 F 87 16 134/54 99 Intake and Output 05/14/23 05/14/23 05/14/23 06:59 14:59 22:59 Other: Weight 104.326 kg GENERAL DESCRIPTION: Middle-aged male lying in bed, no distress. No tachypnea or accessory muscle of respiration use. HEENT: Shows Pallor , no scleral icterus. Oral mucous membrane is dry. No pharyngeal erythema or thrush NECK: Trachea central, no thyromegaly. LUNGS: Unlabored breathing. Clear to auscultation anteriorly. No wheeze or crackle. HEART: S1, S2, regular rate and rhythm. No loud murmur ABDOMEN: Soft, no tenderness , guarding or rigidity, no organomegaly EXTREMITIES: Left foot plantar area did have 3 wounds with surrounding swelling redness but no foul-smelling drainage SKIN: No rash, no masses palpable. NEUROLOGICAL: The patient is awake, alert, oriented x3, mood and affect normal. Results CBC & Chem 7: 05/17/23 06:16 05/23/23 08:09 Labs: Abnormal Lab Results - Last 24 Hours (Table) 05/14/23 05/14/23 Range/Units 14:56 14:56 WBC 12.1 H (3.8-10.6) k/uL RBC 4.28 L (4.30-5.90) m/uL Neutrophils # 10.2 H (1.3-7.7) k/uL Sodium 135 L (137-145) mmol/L Carbon Dioxide 21 L (22-30) mmol/L Glucose 188 H (74-99) mg/dL ALT 109 H (4-49) U/L Alkaline Phosphatase 139 H (38-126) U/L Albumin 3.4 L (3.5-5.0) g/dL Assessment and Plan (1) Diabetic infection of left foot Status: Acute Code(s): E11.628 - TYPE 2 DIABETES MELLITUS WITH OTHER SKIN COMPLICATIONS; L08.9 - LOCAL INFECTION OF THE SKIN AND SUBCUTANEOUS TISSUE, UNSP SNOMED Code(s): 29238031 (2) Foot abscess, left Status: Acute Code(s): L02.612 - CUTANEOUS ABSCESS OF LEFT FOOT SNOMED Code(s): 05588863696988100 Plan: 1patient with the left foot plantar abscess status post surgical drainage we will need to cover for the polymicrobial cat usually associated with this type of infection especially gas-forming 2-patient to continue with the vancomycin pharmacy to dose while watching his kidney function closely however discontinue Zosyn to decrease risk of nephrotoxicity will add cefepime and Flagyl to cover for gram-negative and anaerobes 3-local culture has been requested and will guide further antibiotic therapy 4-check inflammatory markers 5-local wound care per surgery We will follow on clinical condition and cultures to further adjust medication if needed Thank you for this consultation we will follow the patient along with you Dictation was produced using [employer] dictation software. please excuse any grammatical, word or spelling errors. Time with Patient: Greater than 30
[2023-05-15] MEDS: CEFEPIME 2 GM in SODIUM CHLORIDE 0.9% 100 ML IVPB SCH (10:09)
[2023-05-15 11:22] LABS: Glucose,Whole Blood 324 mg/dL (70-110)
[2023-05-15] MEDS ORDERED: DEXTROSE 50% SYRINGE 50 ML IVP PRN ×2 (11:47)
[2023-05-15] MEDS: INSULIN ASPART (NovoLOG) 100 UNIT/ML VIAL SQ SCH (11:53)
--- NOTE | 2023-05-15 15:48 | P.PN ---
Subjective Progress Note Date: 05/15/23 Principal diagnosis: Reason for follow-up is left foot abscess and cellulitis Patient is a 52-year-old male with a past medical history negative for diabetes mellitus hypertension hyperlipidemia apparently patient did have a wound to his left foot, presented to hospital with worsening swelling and concern for an abscess did have a bedside debridement by vascular surgery CT has been suggestive of subcutaneous tissue swelling. On today's evaluation that is 05/15/2023 the patient denies having any fever or any chills, the patient is breathing comfortably on room air, patient denies chest pain cough, the patient denies having any abdominal pain no nausea vomiting and no diarrhea, pain to the left foot is currently controlled Objective - Vital Signs Vital signs: Vital Signs Temp 98.2 F 05/15/23 08:00 Pulse 69 05/15/23 10:00 Resp 16 05/15/23 10:00 BP 123/54 05/15/23 10:00 Pulse Ox 98 05/15/23 10:00 FiO2 Intake & Output 05/14/23 05/15/23 05/15/23 18:59 06:59 18:59 Weight 104.326 kg - Exam GENERAL DESCRIPTION: Middle-age male lying in bed in no distress RESPIRATORY SYSTEM: Unlabored breathing , decreased breath sounds at bases HEART: S1 S2 regular rate and rhythm , ABDOMEN: Soft , no tenderness EXTREMITIES: Left foot is currently dressed no drainage on the dressing - Labs CBC & Chem 7: 05/14/23 14:56 05/14/23 14:56 Labs: Abnormal Lab Results - Last 24 Hours (Table) 05/14/23 05/14/23 05/15/23 Range/Units 14:56 14:56 08:26 WBC 12.1 H (3.8-10.6) k/uL RBC 4.28 L (4.30-5.90) m/uL Neutrophils # 10.2 H (1.3-7.7) k/uL Sodium 135 L (137-145) mmol/L Carbon Dioxide 21 L (22-30) mmol/L Glucose 188 H (74-99) mg/dL POC Glucose (mg/dL) 304 H (70-110) mg/dL ALT 109 H (4-49) U/L Alkaline Phosphatase 139 H (38-126) U/L Albumin 3.4 L (3.5-5.0) g/dL Microbiology - Last 24 Hours (Table) 05/14/23 20:55 Gram Stain - Preliminary Foot - Right Assessment and Plan (1) Foot abscess, left Current Visit: Yes Status: Acute Code(s): L02.612 - CUTANEOUS ABSCESS OF LEFT FOOT SNOMED Code(s): 34949832625644130 (2) Diabetic infection of left foot Current Visit: Yes Status: Acute Code(s): E11.628 - TYPE 2 DIABETES MELLITUS WITH OTHER SKIN COMPLICATIONS; L08.9 - LOCAL INFECTION OF THE SKIN AND SUBCUTANEOUS TISSUE, UNSP SNOMED Code(s): 25794991 (3) Leg wound, left Current Visit: Yes Status: Acute Code(s): S81.802A - UNSPECIFIED OPEN WOUND, LEFT LOWER LEG, INITIAL ENCOUNTER SNOMED Code(s): 862690942 Plan: 1patient with the left foot plantar abscess status post surgical drainage we will need to cover for the polymicrobial cat usually associated with this type of infection especially gas-forming 2-local cultures currently pending 3-patient to continue with vancomycin cefepime and Flagyl while waiting for the culture to finalize Dictation was produced using [employer] dictation software. please excuse any grammatical, word or spelling errors. Time with Patient: Less than 30
[2023-05-15 17:05] LABS: Glucose,Whole Blood 196 mg/dL (70-110)
[2023-05-15 22:16] LABS: Glucose,Whole Blood 227 mg/dL (70-110)
--- NOTE | 2023-05-16 04:32 | PN ---
PROGRESS NOTE 52-year-old white male, comes to the hospital for cardiovascular disease, edema with hypertension, presents to ER with left foot wound. The patient refused surgery apparently HOME MEDICINES: Include, 1. Jardiance. 2. [place]. 3. Zocor. 4. Januvia. 5. . ALLERGIES: Negative. OBJECTIVE: CARDIOVASCULAR: S1-S2. LUNGS: GI: Soft, nontender. HEMATOLOGY: Negative Homans Prognosis is guarded. Please see further orders for 48 hours. MMODL / IJN: [id number] /
[2023-05-16 06:59] LABS: Glucose,Whole Blood 249 mg/dL (70-110)
[2023-05-16 07:01] LABS: African American GFR (CKD) >90 (>60 ml/min/1.73 sqM); Non-African American GFR(CKD) >90 (>60 ml/min/1.73 sqM)
--- NOTE | 2023-05-16 10:02 | P.PN ---
Subjective Progress Note Date: 05/16/23 Patient is seen and examined today as a follow-up. No complaints. Sitting he really does not want have any sort of surgery at this time level alone potential amputation Objective - Vital Signs Vital signs: Vital Signs Temp 98.7 F 05/16/23 07:36 Pulse 77 05/16/23 07:36 Resp 17 05/16/23 07:36 BP 157/65 05/16/23 07:36 Pulse Ox 98 05/16/23 07:36 FiO2 Intake & Output 05/15/23 05/16/23 05/16/23 18:59 06:59 18:59 Weight 104.326 kg Other: Voiding Method Toilet Urinal - Exam General appearance: The patient is alert, oriented, appears in no acute d istress. HET: Head is normocephalic and atraumatic. Neck: Supple. Heart: Regular. Lungs: Equal expansion, normal respiratory effort. Abdomen: Soft, obese, nondistended. Extremities: Left Charcot appearing foot with dressing with crowell drainage and malodorous. heel wounds with packing. Dressings are changed, fibrinous and infected appearing tissue was cut away. Neurological: No focal deficits. Strength and sensation are grossly intact. - Labs CBC & Chem 7: 05/14/23 14:56 05/16/23 06:20 Labs: Abnormal Lab Results - Last 24 Hours (Table) 05/15/23 05/15/23 05/15/23 Range/Units 11:20 17:04 22:13 POC Glucose (mg/dL) 324 H 196 H 227 H (70-110) mg/dL 05/16/23 Range/Units 06:54 POC Glucose (mg/dL) 249 H (70-110) mg/dL Microbiology - Last 24 Hours (Table) 05/14/23 14:56 Blood Culture - Preliminary Blood 05/14/23 14:56 Blood Culture - Preliminary Blood 05/14/23 20:55 Gram Stain - Preliminary Foot - Right Assessment and Plan Assessment: 1. Infected diabetic foot wound, left 2. Charcot foot 3. Diabetes mellitus Plan: Continue with daily dressing changes, would recommend Dakin's wet-to-dry dressing changes at the heel wound. Continue IV antibiotics. This time patient is not desirous of undergoing surgical intervention. We discussed potentially in the future need for amputation. This is not something he is willing to discuss or consider. Did discuss that he may need more aggressive debridement in the operating room, he does not want to do that at this time and will think about it. Discussed consequences of this and the potential for ongoing and worsening infection. He seemingly understands.
[2023-05-16 11:42] LABS: Glucose,Whole Blood 211 mg/dL (70-110)
[2023-05-16 12:32] VITALS: BMI 32.1
--- NOTE | 2023-05-16 12:44 | HP ---
HISTORY AND PHYSICAL HISTORY OF PRESENT ILLNESS: This is a 52-year-old white male with severe left foot wound, thigh wound is getting worse. He has foul-smelling open wounds to the foot. He is sent here by Dr. Vizcaino, needs a debridement versus possible amputation. He is producing foul smelling material. Low-grade fevers at home, some chills. He does not feel good, weakness, fatigue. HOME MEDICINES: 1. [place] 7.5 t.i.d. 2. Januvia 100 mg daily. 3. Zocor 20 daily. 4. Invega with supper. 5. Metformin 1000 b.i.d. 6. Lamisil 250 daily. 7. Lasix 40 daily. 8. Lyrica 200 t.i.d. ALLERGIES: Negative. REVIEW OF SYSTEMS: A 14-point review of systems as mentioned above on the foot. Pain, weakness, fatigue, difficulty walking, open wounds. Otherwise, 14-point review of systems negative. PAST MEDICAL HISTORY: History of COPD, hypertension, diabetes. PHYSICAL EXAMINATION: EXTREMITIES: His foot is wrapped, is about twice the size of the other foot. He has a leaking wound to the posterior aspect with subcutaneous gas, suspicion of possible necrotizing infection of the foot. Vascular surgery would like to see him and operate. CARDIOVASCULAR: S1, S2. LUNGS: Scattered wheeze x4. HEMATOLOGY: 2+ edema. PSYCH: Poor mood and affect. NEUROLOGIC: Alert and oriented x3. White count 12.1, sodium 135. He has diabetic wound infection, rule out necrotizing gangrene. Infectious Disease will be needed as well as vascular for debridement and long-term IV antibiotics. Wait for cultures to come back. Cultures have been drawn. Wait for [place] and Dr. Mendez's recommendations. MMODL / IJN: [id number] /
--- NOTE | 2023-05-16 15:09 | P.PN ---
Subjective Progress Note Date: 05/16/23 Principal diagnosis: Reason for follow-up is left foot abscess and cellulitis Patient is a 52-year-old male with a past medical history negative for diabetes mellitus hypertension hyperlipidemia apparently patient did have a wound to his left foot, presented to hospital with worsening swelling and concern for an abscess did have a bedside debridement by vascular surgery CT has been suggestive of subcutaneous tissue swelling. On today's evaluation that is 05/16/2023, the patient remains to be afebrile, the patient is breathing comfortably on room air, the patient denies any chest pain shortness of breath or cough patient denies having any nausea no vomiting did not have any abdominal pain no diarrhea has been reported, the patient has any worsening pain to the left foot The patient cultures are currently pending creatinine 0.78 Objective - Vital Signs Vital signs: Vital Signs Temp 98.7 F 05/16/23 07:36 Pulse 77 05/16/23 07:36 Resp 17 05/16/23 07:36 BP 157/65 05/16/23 07:36 Pulse Ox 98 05/16/23 07:36 FiO2 Intake & Output 05/15/23 05/16/23 05/16/23 18:59 06:59 18:59 Weight 104.326 kg Other: Voiding Method Toilet Urinal - Exam GENERAL DESCRIPTION: Middle-age male lying in bed in no distress RESPIRATORY SYSTEM: Unlabored breathing , decreased breath sounds at bases HEART: S1 S2 regular rate and rhythm , ABDOMEN: Soft , no tenderness EXTREMITIES: Left foot is currently dressed no drainage on the dressing - Labs CBC & Chem 7: 05/14/23 14:56 05/16/23 06:20 Labs: Abnormal Lab Results - Last 24 Hours (Table) 05/15/23 05/15/23 05/15/23 Range/Units 11:20 17:04 22:13 POC Glucose (mg/dL) 324 H 196 H 227 H (70-110) mg/dL 05/16/23 Range/Units 06:54 POC Glucose (mg/dL) 249 H (70-110) mg/dL Microbiology - Last 24 Hours (Table) 05/14/23 14:56 Blood Culture - Preliminary Blood 05/14/23 14:56 Blood Culture - Preliminary Blood 05/14/23 20:55 Gram Stain - Preliminary Foot - Right Assessment and Plan (1) Foot abscess, left Current Visit: Yes Status: Acute Code(s): L02.612 - CUTANEOUS ABSCESS OF LEFT FOOT SNOMED Code(s): 12922764868236432 (2) Diabetic infection of left foot Current Visit: Yes Status: Acute Code(s): E11.628 - TYPE 2 DIABETES MELLITUS WITH OTHER SKIN COMPLICATIONS; L08.9 - LOCAL INFECTION OF THE SKIN AND SUBCUTANEOUS TISSUE, UNSP SNOMED Code(s): 57845095 (3) Leg wound, left Current Visit: Yes Status: Acute Code(s): S81.802A - UNSPECIFIED OPEN WOUND, LEFT LOWER LEG, INITIAL ENCOUNTER SNOMED Code(s): 040735328 Plan: 1patient with the left foot plantar abscess status post surgical drainage we will need to cover for the polymicrobial cat usually associated with this type of infection especially gas-forming 2-local cultures currently pending 3-patient to continue with vancomycin cefepime and Flagyl while waiting for the culture to finalize, we will recheck a CBC inflammatory markers with a.m. and continue local wound care per surgery Dictation was produced using [employer] dictation software. please excuse any grammatical, word or spelling errors. Time with Patient: Less than 30
[2023-05-16] MEDS: VANCOMYCIN TROUGH DUE 1 EACH MISC MISCELLANE ONE (15:31)
[2023-05-16 17:08] LABS: Glucose,Whole Blood 244 mg/dL (70-110)
[2023-05-16 20:39] LABS: Glucose,Whole Blood 265 mg/dL (70-110)
[2023-05-16] MEDS: PREGABALIN 100 MG CAP PO SCH (21:21)
--- NOTE | 2023-05-17 01:08 | PN ---
PROGRESS NOTE SUBJECTIVE: A 52-year-old white male, remains in with infected foot. The patient does not want an amputation. Temperature 98.7, pulse 77, respiratory rate 17, blood pressure 157/65, and O2 98. Charcot foot of the left foot with drainage malodorous-tissue cut away. White count is up to 12.1, infected diabetic foot wound, left Charcot foot. Daily dressing change, possible Dakin's, wet-to-dry changes, IV antibiotics. Denies desire to get surgical amputation, more aggressive debridement in the operating room, will think about it. Continue with IV antibiotics per Dr. Coy's recommendations. Please see further orders. MMODL / IJN: [id number] /
[2023-05-17 06:09] LABS: Glucose,Whole Blood 208 mg/dL (70-110)
[2023-05-17 07:27] LABS: African American GFR (CKD) >90 (>60 ml/min/1.73 sqM); Anion Gap 7 mmol/L; Blood Urea Nitrogen 15 mg/dL (9-20); C Reactive Protein 2.7 mg/dL (<1.0); Calcium 8.5 mg/dL (8.4-10.2); Carbon Dioxide 20 mmol/L (22-30); Chloride 114 mmol/L (98-107); Glucose 192 mg/dL (74-99); Non-African American GFR(CKD) >90 (>60 ml/min/1.73 sqM); Potassium 3.9 mmol/L (3.5-5.1); Sodium 141 mmol/L (137-145)
[2023-05-17 11:58] LABS: Glucose,Whole Blood 275 mg/dL (70-110)
[2023-05-17 12:47] LABS: Basophils # (A) 0.02 X 10*3/uL (0.00-0.10); Basophils % (A) 0.3 %; Eosinophils # (A) 0.14 X 10*3/uL (0.04-0.35); HCT 36.9 % (39.6-50.0); HGB 11.6 g/dL (13.0-17.0); Lymphocytes # (A) 0.75 X 10*3/uL (0.90-5.00); Lymphocytes % (A) 10.6 %; MCH 31.1 pg (27.0-32.0); MCHC 31.4 g/dL (32.0-37.0); MCV 98.9 FL (80.0-97.0); Mean Platelet Volume 9.6 FL (9.5-12.2); Monocytes # (A) 0.65 X 10*3/uL (0.20-1.00); Monocytes % (A) 9.2 %; NRBC Per 100 WBC 0 X 10*3/uL (0.00-0.01); Neutrophils # (A) 5.47 X 10*3/uL (1.80-7.70); Neutrophils % (A) 76.9 %; Platelet Count 274 X 10*3/uL (140-440); RBC 3.73 X 10*6/uL (4.40-5.60)
--- NOTE | 2023-05-17 13:14 | P.PN ---
Subjective Progress Note Date: 05/17/23 Principal diagnosis: foot wound patient seen and examined. States "I don't want surgery". No changes from patients standpoint. Objective - Vital Signs Vital signs: Vital Signs Temp 97.9 F 05/17/23 08:00 Pulse 77 05/17/23 08:00 Resp 18 05/17/23 08:00 BP 129/77 05/17/23 08:00 Pulse Ox 98 05/17/23 08:00 FiO2 Intake & Output 05/16/23 05/17/23 05/17/23 18:59 06:59 18:59 Intake Total 1340 940 Balance 1340 940 Weight 104.326 kg Intake: Intake, IV Titration 700 840 Amount Cefepime 2 gm In Sodium 100 100 Chloride 0.9% 100 ml @ 25 mls/hr IVPB Q8H [facility] Rx#: [id number] Sodium Chloride 0.9% 1, 100 240 000 ml @ 20 mls/hr IV . Q24H [facility] Rx#:[id number] Vancomycin 1,750 mg In 500 500 Sodium Chloride 0.9% 500 ml 500 ml @ 167 mls/hr IVPB Q12H [facility] Rx#: [id number] Oral 640 100 Other: # Voids 1 3 - Exam General appearance: The patient is alert, oriented, appears in no acute distress. HET: Head is normocephalic and atraumatic. Neck: Supple. Heart: Regular. Lungs: Equal expansion, normal respiratory effort. Abdomen: Soft, obese, nondistended. Extremities: Left Charcot appearing foot with dressing with crowell drainage and malodorous. heel wounds with packing. Dressings are changed, fibrinous and infected appearing tissue was cut away. Neurological: No focal deficits. Strength and sensation are grossly intact. - Labs CBC & Chem 7: 05/17/23 06:16 05/17/23 06:16 Labs: Abnormal Lab Results - Last 24 Hours (Table) 05/16/23 05/16/23 05/17/23 Range/Units 16:58 20:37 06:07 RBC (4.40-5.60) X 10*6/uL Hgb (13.0-17.0) g/dL Hct (39.6-50.0) % MCV (80.0-97.0) FL MCHC (32.0-37.0) g/dL Immature Gran # (0.00-0.04) X 10*3/uL Lymphocytes # (0.90-5.00) X 10*3/uL Chloride (98-107) mmol/L Carbon Dioxide (22-30) mmol/L Glucose (74-99) mg/dL POC Glucose (mg/dL) 244 H 265 H 208 H (70-110) mg/dL C-Reactive Protein (<1.0) mg/dL 05/17/23 05/17/23 05/17/23 Range/Units 06:16 06:16 11:57 RBC 3.73 L (4.40-5.60) X 10*6/uL Hgb 11.6 L (13.0-17.0) g/dL Hct 36.9 L (39.6-50.0) % MCV 98.9 H (80.0-97.0) FL MCHC 31.4 L (32.0-37.0) g/dL Immature Gran # 0.07 H (0.00-0.04) X 10*3/uL Lymphocytes # 0.75 L (0.90-5.00) X 10*3/uL Chloride 114 H (98-107) mmol/L Carbon Dioxide 20 L (22-30) mmol/L Glucose 192 H (74-99) mg/dL POC Glucose (mg/dL) 275 H (70-110) mg/dL C-Reactive Protein 2.7 H (<1.0) mg/dL Microbiology - Last 24 Hours (Table) 05/14/23 14:56 Blood Culture - Preliminary Blood 05/14/23 14:56 Blood Culture - Preliminary Blood Assessment and Plan Assessment: 1. Infected diabetic foot wound, left 2. Charcot foot 3. Diabetes mellitus Plan: Continue with daily dressing changes, would recommend Clotilde's wet-to-dry dressing changes at the heel wound. Continue IV antibiotics. Patient refuses any surgical procedure at this time. Discussed may need amputation in the future if no improvement which he adamantly refuses.
[2023-05-17 14:45] LABS: Erythrocyte Sedimentation Rate 54 mm/Hr (0-20)
[2023-05-17 16:44] LABS: Glucose,Whole Blood 306 mg/dL (70-110)
--- NOTE | 2023-05-17 20:11 | HP ---
HISTORY AND PHYSICAL HISTORY OF PRESENT ILLNESS: This is a 52-year-old white male, peripheral vascular disease, hypertension, came to the ER for left foot wound. He was in the ER for leg swelling, pain, needs debridement and IV antibiotics. REVIEW OF SYSTEMS: A 14-point review of systems as mentioned above. Please see other dictation that was already done in the past. HOME MEDICINES: Reviewed. ALLERGIES: Negative. REVIEW OF SYSTEMS: A 14-point review of systems otherwise negative. PHYSICAL EXAMINATION: VITAL SIGNS: Stable, afebrile. CARDIOVASCULAR: S1, S2. LUNGS: Transmitted upper sounds. GI. Soft. HEMATOLOGY: Negative for Homans. NEUROLOGIC: Cranial nerves intact. PSYCH: Fair mood and affect. Cellulitis, osteomyelitis of foot. Continue with the necrotizing infection medications, IV antibiotics, debridement. Prognosis guarded. MMODL / IJN: [id number] /
[2023-05-17 21:02] LABS: Glucose,Whole Blood 179 mg/dL (70-110)
--- NOTE | 2023-05-17 22:51 | P.PN ---
Progress Note - Text Progress Note Date: 05/17/23 Hospital course: I'm rounding for Dr. Mt Hooper. 05/17/2023: Patient had a BM. Getting IV cefepime and IV vancomycin. Patient does get neuropathic pain and lower extremity. Appetite is fair. Patient is declined any surgical intervention with vascular. Wound dressing per Dr. Lorenzo. Active Medications Acetaminophen (Acetaminophen Tab 325 Mg Tab) 650 mg PO Q6HR PRN PRN Reason: Mild Pain or Fever > 100.5 Hydrocodone Bitart/Acetaminophen (Hydrocodone/Apap 7.5-325mg 1 Each Tab) 1 each PO TID [facility] Last Admin: 05/17/23 21:25 Dose: 1 each Atorvastatin Calcium (Atorvastatin 10 Mg Tab) 10 mg PO HS [facility] Last Admin: 05/17/23 21:27 Dose: 10 mg Carvedilol (Carvedilol 6.25 Mg Tab) 6.25 mg PO BID-W/MEALS [facility] Last Admin: 05/17/23 15:31 Dose: 6.25 mg Dapagliflozin (Dapagliflozin Propanediol 10 Mg Tablet) 10 mg PO DAILY [facility] Last Admin: 05/17/23 08:05 Dose: 10 mg Dextrose/Water (Dextrose 50% Syringe 50 Ml) 25 ml IVP PER PROTOCOL PRN; Protocol PRN Reason: Hypoglycemia Dextrose/Water (Dextrose 50% Syringe 50 Ml) 50 ml IVP PER PROTOCOL PRN; Pr otocol PRN Reason: Hypoglycemia Ergocalciferol (Ergocalciferol 1,250 Mcg (50,000 Iu) Capsule) 1,250 mcg PO Q7D [facility] Famotidine (Famotidine 20 Mg Tab) 20 mg PO BID [facility] Last Admin: 05/17/23 21:27 Dose: 20 mg Furosemide (Furosemide 40 Mg Tab) 40 mg PO DAILY [facility] Last Admin: 05/17/23 08:05 Dose: 40 mg Sodium Chloride (Saline 0.9%) 1,000 mls @ 20 mls/hr IV .Q24H [facility] Last Admin: 05/17/23 15:34 Dose: Not Given Cefepime HCl 2 gm/ Sodium (Chloride) 100 mls @ 25 mls/hr IVPB Q8H [facility]; Protocol Last Admin: 05/17/23 17:58 Dose: 25 mls/hr Vancomycin HCl 1,750 mg/ (Sodium Chloride) 500 mls @ 167 mls/hr IVPB Q12H [facility] Last Admin: 05/17/23 15:30 Dose: 167 mls/hr Insulin Aspart (Insulin Aspart (Novolog) 100 Unit/Ml Vial) 0 unit SQ ACHS [facility]; Protocol Last Admin: 05/17/23 21:27 Dose: 3 unit Linagliptin (Linagliptin 5 Mg Tablet) 5 mg PO DAILY [facility] Last Admin: 05/17/23 08:05 Dose: 5 mg Metronidazole (Metronidazole 500 Mg Tab) 500 mg PO TID [facility]; Protocol Last Admin: 05/17/23 21:27 Dose: 500 mg Morphine Sulfate (Morphine Sulfate 4 Mg/Ml Syringe) 4 mg IV Q4HR PRN PRN Reason: Severe Pain (Scale 7 to 10) Naloxone HCl (Naloxone 0.4 Mg/Ml 1 Ml Vial) 0.2 mg IV Q2M PRN PRN Reason: Opioid Reversal Pregabalin (Pregabalin 100 Mg Cap) 200 mg PO TID [facility] Last Admin: 05/17/23 21:27 Dose: 200 mg Sevelamer Carbonate (Sevelamer 800 Mg Tab) 800 mg PO DAILY [facility] Last Admin: 05/17/23 08:05 Dose: 800 mg On examination: VITAL SIGNS: [97.5, 84, 18, 158/81, 99% room air] GENERAL APPEARANCE: Laying in bed, awake comfortable HEENT: Normal external appearance of nose and ear. Oral cavity normal EYES: Pupils equal. Conjunctiva normal. NECK: JVD not raised. Mass not palpable. RESPIRATORY: Respiratory effort normal. Lungs clear to auscultation. CARDIOVASCULAR: First and second sounds normal. No edema. ABDOMEN: Soft. Liver and spleen not palpable. No tenderness. No mass palpable. PSYCHIATRY: Alert and oriented x3. Mood and affect normal EXTREMITY: Left [address], [place] Chronic venous stasis changes. Wounds on the plantar surface.-Dressing INVESTIGATIONS, reviewed in the clinical context: 05/25/2023: White count 7.1 hemoglobin 11.6 potassium 3.9 creatinine 0.69 Assessment and plan: -Acute on chronic left foot diabetic wound, having failed outpatient treatment with plantar abscess.: Slow to respond Underwent local debridement by Dr. Domínguez. Patient has refused surgical intervention. IV cefepime and IV vancomycin -Essential hypertension Zestril -Diabetes mellitus type 2 on oral hypoglycemic: Uncontrolled Farxiga. Resume metformin. Follow Accu-Cheks. Added Levemir -Hyperlipidemia Zocor -Diabetic peripheral neuropathy Lyrica. [place] -GERD Pepcid -Obesity BMI 32.1 -Full code
[2023-05-17] MEDS: INSULIN DETEMIR (LEVEMIR) 100 UNIT/ML SYR SQ SCH (23:21)
--- NOTE | 2023-05-18 03:17 | P.PN ---
Subjective Progress Note Date: 05/17/23 Principal diagnosis: Reason for follow-up is left foot abscess and cellulitis This is a telehealth visit Patient is a 52-year-old male with a past medical history negative for diabetes mellitus hypertension hyperlipidemia apparently patient did have a wound to his left foot, presented to hospital with worsening swelling and concern for an abscess did have a bedside debridement by vascular surgery CT has been suggestive of subcutaneous tissue swelling. On today's evaluation that is 05/17/2023 the patient remains to be afebrile, the patient is breathing comfortably currently on room air, the patient denies having any chest pain shortness of breath or cough no nausea no vomiting no abdominal pain and no diarrhea and denies any worsening pain to his left foot. Patient white count was 7.10, creatinine 0.69 Objective - Vital Signs Vital signs: Vital Signs Temp 97.5 F L 05/17/23 14:00 Pulse 84 05/17/23 14:00 Resp 18 05/17/23 14:00 BP 158/81 05/17/23 14:00 Pulse Ox 99 05/17/23 14:00 FiO2 Intake & Output 05/16/23 05/17/23 05/17/23 18:59 06:59 18:59 Intake Total 1340 940 Balance 1340 940 Weight 104.326 kg Intake: Intake, IV Titration 700 840 Amount Cefepime 2 gm In Sodium 100 100 Chloride 0.9% 100 ml @ 25 mls/hr IVPB Q8H [facility] Rx#: [id number] Sodium Chloride 0.9% 1, 100 240 000 ml @ 20 mls/hr IV . Q24H [facility] Rx#:[id number] Vancomycin 1,750 mg In 500 500 Sodium Chloride 0.9% 500 ml 500 ml @ 167 mls/hr IVPB Q12H [facility] Rx#: [id number] Oral 640 100 Other: # Voids 1 3 - Exam GENERAL DESCRIPTION: Middle-age male lying in bed in no distress RESPIRATORY SYSTEM: Unlabored breathing , decreased breath sounds at bases HEART: S1 S2 regular rate and rhythm , ABDOMEN: Soft , no tenderness EXTREMITIES: Left foot is currently dressed no drainage on the dressing - Labs CBC & Chem 7: 05/17/23 06:16 05/17/23 06:16 Labs: Abnormal Lab Results - Last 24 Hours (Table) 05/16/23 05/17/2324 Range/Units 20:37 06:07 06:16 RBC (4.40-5.60) X 10*6/uL Hgb (13.0-17.0) g/dL Hct (39.6-50.0) % MCV (80.0-97.0) FL MCHC (32.0-37.0) g/dL Immature Gran # (0.00-0.04) X 10*3/uL Lymphocytes # (0.90-5.00) X 10*3/uL ESR (0-20) mm/Hr Chloride 114 H (98-107) mmol/L Carbon Dioxide 20 L (22-30) mmol/L Glucose 192 H (74-99) mg/dL POC Glucose (mg/dL) 265 H 208 H (70-110) mg/dL C-Reactive Protein 2.7 H (<1.0) mg/dL 05/17/23 05/17/23 05/17/23 Range/Units 06:16 11:57 16:43 RBC 3.73 L (4.40-5.60) X 10*6/uL Hgb 11.6 L (13.0-17.0) g/dL Hct 36.9 L (39.6-50.0) % MCV 98.9 H (80.0-97.0) FL MCHC 31.4 L (32.0-37.0) g/dL Immature Gran # 0.07 H (0.00-0.04) X 10*3/uL Lymphocytes # 0.75 L (0.90-5.00) X 10*3/uL ESR 54 H (0-20) mm/Hr Chloride (98-107) mmol/L Carbon Dioxide (22-30) mmol/L Glucose (74-99) mg/dL POC Glucose (mg/dL) 275 H 306 H (70-110) mg/dL C-Reactive Protein (<1.0) mg/dL Microbiology - Last 24 Hours (Table) 05/14/23 14:56 Blood Culture - Preliminary Blood 05/14/23 14:56 Blood Culture - Preliminary Blood Assessment and Plan (1) Foot abscess, left Current Visit: Yes Status: Acute Code(s): L02.612 - CUTANEOUS ABSCESS OF LEFT FOOT SNOMED Code(s): 14658909929670046 (2) Diabetic infection of left foot Current Visit: Yes Status: Acute Code(s): E11.628 - TYPE 2 DIABETES MELLITUS WITH OTHER SKIN COMPLICATIONS; L08.9 - LOCAL INFECTION OF THE SKIN AND SUBCUTANEOUS TISSUE, UNSP SNOMED Code(s): 05099718 (3) Leg wound, left Current Visit: Yes Status: Acute Code(s): S81.802A - UNSPECIFIED OPEN WOUND, LEFT LOWER LEG, INITIAL ENCOUNTER SNOMED Code(s): 770142529 Plan: 1patient with the left foot plantar abscess status post surgical drainage we will need to cover for the polymicrobial cat usually associated with this type of infection especially gas-forming 2-local cultures currently pending 3-patient to continue with vancomycin cefepime and Flagyl . and continue local wound care per surgery Dictation was produced using [employer] dictation software. please excuse any grammatical, word or spelling errors.
[2023-05-18 06:25] LABS: Glucose,Whole Blood 248 mg/dL (70-110)
[2023-05-18 07:03] LABS: African American GFR (CKD) >90 (>60 ml/min/1.73 sqM); Non-African American GFR(CKD) >90 (>60 ml/min/1.73 sqM)
[2023-05-18] MEDS: metFORMIN 500 MG TAB PO SCH (08:10)
[2023-05-18 11:43] LABS: Glucose,Whole Blood 278 mg/dL (70-110)
[2023-05-18 17:00] LABS: Glucose,Whole Blood 201 mg/dL (70-110)
--- NOTE | 2023-05-18 21:46 | P.PN ---
Progress Note - Text Progress Note Date: 05/18/23 Hospital course: I'm rounding for Dr. Mt Hooper. 05/17/2023: Patient had a BM. Getting IV cefepime and IV vancomycin. Patient does get neuropathic pain and lower extremity. Appetite is fair. Patient is declined any surgical intervention with vascular. Wound dressing per Dr. Lorenzo. 05/18/2023: pain in the lower extremity. IV cefepime and IV vancomycin. Eating well. Has been in bed. Active Medications Acetaminophen (Acetaminophen Tab 325 Mg Tab) 650 mg PO Q6HR PRN PRN Reason: Mild Pain or Fever > 100.5 Hydrocodone Bitart/Acetaminophen (Hydrocodone/Apap 7.5-325mg 1 Each Tab) 1 each PO TID [facility] Last Admin: 05/18/23 16:05 Dose: 1 each Atorvastatin Calcium (Atorvastatin 10 Mg Tab) 10 mg PO HS [facility] Last Admin: 05/17/23 21:27 Dose: 10 mg Carvedilol (Carvedilol 6.25 Mg Tab) 6.25 mg PO BID-W/MEALS [facility] Last Admin: 05/18/23 17:21 Dose: 6.25 mg Dapagliflozin (Dapagliflozin Propanediol 10 Mg Tablet) 10 mg PO DAILY [facility] Last Admin: 05/18/23 08:12 Dose: 10 mg Dextrose/Water (Dextrose 50% Syringe 50 Ml) 25 ml IVP PER PROTOCOL PRN; Sariah col PRN Reason: Hypoglycemia Dextrose/Water (Dextrose 50% Syringe 50 Ml) 50 ml IVP PER PROTOCOL PRN; Protocol PRN Reason: Hypoglycemia Ergocalciferol (Ergocalciferol 1,250 Mcg (50,000 Iu) Capsule) 1,250 mcg PO Q7D [facility] Famotidine (Famotidine 20 Mg Tab) 20 mg PO BID [facility] Last Admin: 05/18/23 08:10 Dose: 20 mg Furosemide (Furosemide 40 Mg Tab) 40 mg PO DAILY [facility] Last Admin: 05/18/23 08:10 Dose: 40 mg Sodium Chloride (Saline 0.9%) 1,000 mls @ 20 mls/hr IV .Q24H [facility] Last Admin: 05/18/23 10:13 Dose: 20 mls/hr Cefepime HCl 2 gm/ Sodium (Chloride) 100 mls @ 25 mls/hr IVPB Q8H [facility]; Protocol Last Admin: 05/18/23 17:22 Dose: 25 mls/hr Vancomycin HCl 1,750 mg/ (Sodium Chloride) 500 mls @ 167 mls/hr IVPB Q12H [facility] Last Admin: 05/18/23 15:58 Dose: 167 mls/hr Insulin Aspart (Insulin Aspart (Novolog) 100 Unit/Ml Vial) 0 unit SQ ACHS [facility]; Protocol Last Admin: 05/18/23 17:21 Dose: 3 unit Insulin Detemir (Insulin Detemir (Levemir) 100 Unit/Ml Syr) 12 unit SQ [facility] Last Admin: 05/17/23 23:21 Dose: 12 unit Linagliptin (Linagliptin 5 Mg Tablet) 5 mg PO DAILY [facility] Last Admin: 05/18/23 08:10 Dose: 5 mg Lisinopril (Lisinopril 20 Mg Tab) 20 mg PO [facility] Metformin HCl (Metformin 500 Mg Tab) 1,000 mg PO BID [facility] Last Admin: 05/18/23 08:10 Dose: 1,000 mg Metronidazole (Metronidazole 500 Mg Tab) 500 mg PO TID [facility]; Protocol Last Admin: 05/18/23 16:08 Dose: 500 mg Miscellaneous Information (Vancomycin Trough Due 1 Each Misc) 0 each MISCELLANE DIRECTED ONE Stop: 05/19/23 15:01 Morphine Sulfate (Morphine Sulfate 4 Mg/Ml Syringe) 4 mg IV Q4HR PRN PRN Reason: Severe Pain (Scale 7 to 10) Naloxone HCl (Naloxone 0.4 Mg/Ml 1 Ml Vial) 0.2 mg IV Q2M PRN PRN Reason: Opioid Reversal Pregabalin (Pregabalin 100 Mg Cap) 200 mg PO TID [facility] Last Admin: 05/18/23 16:06 Dose: 200 mg Sevelamer Carbonate (Sevelamer 800 Mg Tab) 800 mg PO DAILY [facility] Last Admin: 05/18/23 08:12 Dose: 800 mg On examination: VITAL SIGNS: [97.8, 80, 18, 1 50 x 74, 98% room air GENERAL APPEARANCE: Laying in bed, awake comfortable HEENT: Normal external appearance of nose and ear. Oral cavity normal EYES: Pupils equal. Conjunctiva normal. NECK: JVD not raised. Mass not palpable. RESPIRATORY: Respiratory effort normal. Lungs clear to auscultation. CARDIOVASCULAR: First and second sounds normal. No edema. ABDOMEN: Soft. Liver and spleen not palpable. No tenderness. No mass palpable. PSYCHIATRY: Alert and oriented x3. Mood and affect normal EXTREMITY: Left [address], [place] Chronic venous stasis changes. Wounds on the plantar surface.-Dressing INVESTIGATIONS, reviewed in the clinical context: 05/25/2023: White count 7.1 hemoglobin 11.6 potassium 3.9 creatinine 0.69 Assessment and plan: -Acute on chronic left foot diabetic wound, having failed outpatient treatment with plantar abscess.: Slow to respond Underwent local debridement by Dr. Domínguez. Patient has refused surgical intervention. IV cefepime and IV vancomycin -Essential hypertension Zestril -Diabetes mellitus type 2 on oral hypoglycemic: Uncontrolled Farxiga. Resume metformin. Follow Accu-Cheks. Increase Levemir to 50 units subcu daily at bedtime. Add NovoLog 3 units before meals 3 times a day -Hyperlipidemia Zocor -Diabetic peripheral neuropathy Lyrica. [place] -GERD Pepcid -Obesity BMI 32.1 -Full code
[2023-05-18 21:48] LABS: Glucose,Whole Blood 209 mg/dL (70-110)
[2023-05-18] MEDS: lisinopriL 20 MG TAB PO SCH (22:03)
--- NOTE | 2023-05-19 01:35 | P.PN ---
Subjective Progress Note Date: 05/18/23 Principal diagnosis: Reason for follow-up is left foot abscess and cellulitis This is a telehealth visit Patient is a 52-year-old male with a past medical history negative for diabetes mellitus hypertension hyperlipidemia apparently patient did have a wound to his left foot, presented to hospital with worsening swelling and concern for an abscess did have a bedside debridement by vascular surgery CT has been suggestive of subcutaneous tissue swelling. On today's evaluation that is 05/18/2023 the patient continues to be afebrile, the patient is breathing comfortably on room air patient denies having any chest pain occasional cough no sputum production, the pt denies nausea vomiting no abdominal pain no diarrhea, the patient has pain to the left foot wound area. White count was 7.10 as of yesterday creatinine 0.77 culture has been negative so far Objective - Vital Signs Vital signs: Vital Signs Temp 97.8 F 05/18/23 08:00 Pulse 80 05/18/23 08:00 Resp 18 05/18/23 08:00 BP 150/74 05/18/23 08:00 Pulse Ox 98 05/18/23 08:00 FiO2 Intake & Output 05/17/23 05/18/23 05/18/23 18:59 06:59 18:59 Intake Total 1680 1080 200 Balance 1680 1080 200 Intake: Intake, IV Titration 720 600 Amount Cefepime 2 gm In Sodium 100 100 Chloride 0.9% 100 ml @ 25 mls/hr IVPB Q8H [facility] Rx#: [id number] Sodium Chloride 0.9% 1, 120 000 ml @ 20 mls/hr IV . Q24H [facility] Rx#:[id number] Vancomycin 1,750 mg In 500 500 Sodium Chloride 0.9% 500 ml 500 ml @ 167 mls/hr IVPB Q12H [facility] Rx#: [id number] Oral 960 480 200 Other: # Voids 4 2 # Bowel Movements 1 - Exam GENERAL DESCRIPTION: Middle-age male lying in bed in no distress RESPIRATORY SYSTEM: Unlabored breathing , decreased breath sounds at bases HEART: S1 S2 regular rate and rhythm , ABDOMEN: Soft , no tenderness EXTREMITIES: Left foot is currently dressed no drainage on the dressing - Labs CBC & Chem 7: 05/17/23 06:16 05/18/23 06:08 Labs: Abnormal Lab Results - Last 24 Hours (Table) 05/17/23 05/17/23 05/17/23 Range/Units 06:16 11:57 16:43 RBC 3.73 L (4.40-5.60) X 10*6/uL Hgb 11.6 L (13.0-17.0) g/dL Hct 36.9 L (39.6-50.0) % MCV 98.9 H (80.0-97.0) FL MCHC 31.4 L (32.0-37.0) g/dL Immature Gran # 0.07 H (0.00-0.04) X 10*3/uL Lymphocytes # 0.75 L (0.90-5.00) X 10*3/uL ESR 54 H (0-20) mm/Hr POC Glucose (mg/dL) 275 H 306 H (70-110) mg/dL 05/17/23 05/18/23 Range/Units 20:59 06:24 RBC (4.40-5.60) X 10*6/uL Hgb (13.0-17.0) g/dL Hct (39.6-50.0) % MCV (80.0-97.0) FL MCHC (32.0-37.0) g/dL Immature Gran # (0.00-0.04) X 10*3/uL Lymphocytes # (0.90-5.00) X 10*3/uL ESR (0-20) mm/Hr POC Glucose (mg/dL) 179 H 248 H (70-110) mg/dL Microbiology - Last 24 Hours (Table) 05/14/23 14:56 Blood Culture - Preliminary Blood 05/14/23 14:56 Blood Culture - Preliminary Blood Assessment and Plan (1) Foot abscess, left Current Visit: Yes Status: Acute Code(s): L02.612 - CUTANEOUS ABSCESS OF LEFT FOOT SNOMED Code(s): 55789542874557945 (2) Diabetic infection of left foot Current Visit: Yes Status: Acute Code(s): E11.628 - TYPE 2 DIABETES MELLITUS WITH OTHER SKIN COMPLICATIONS; L08.9 - LOCAL INFECTION OF THE SKIN AND SUBCUTANEOUS TISSUE, UNSP SNOMED Code(s): 80808127 (3) Leg wound, left Current Visit: Yes Status: Acute Code(s): S81.802A - UNSPECIFIED OPEN WOUND, LEFT LOWER LEG, INITIAL ENCOUNTER SNOMED Code(s): 711902733 Plan: 1patient with the left foot plantar abscess status post surgical drainage we wi ll need to cover for the polymicrobial cat usually associated with this type of infection especially gas-forming 2-local cultures are so far negative 3-patient was treated probably because of his extension infection with vancomycin cefepime and Flagyl with a culture negative will be able to narrow down his antibiotics Dictation was produced using [employer] dictation software. please excuse any gram matical, word or spelling errors. Time with Patient: Less than 30
[2023-05-19 06:49] LABS: Glucose,Whole Blood 168 mg/dL (70-110)
[2023-05-19 06:54] LABS: African American GFR (CKD) >90 (>60 ml/min/1.73 sqM); Non-African American GFR(CKD) >90 (>60 ml/min/1.73 sqM)
[2023-05-19] MEDS: ERGOCALCIFEROL 1,250 MCG (50,000 IU) CAPSULE PO SCH (07:59)
[2023-05-19] MEDS: INSULIN ASPART (NovoLOG) 100 UNIT/ML VIAL SQ SCH (08:00)
[2023-05-19 11:49] LABS: Glucose,Whole Blood 209 mg/dL (70-110)
--- NOTE | 2023-05-19 12:58 | P.PN ---
Subjective Progress Note Date: 05/19/23 Principal diagnosis: Right foot wound Patient is seen and examined as a follow-up. Patient is still refusing any surgical intervention for his left foot infection. He states "I don't want any surgery and told the vascular people that" he remains on IV antibiotics. Remains afebrile. Cultures pending. Blood cultures negative to date. Objective - Vital Signs Vital signs: Vital Signs Temp 98.1 F 05/19/23 07:17 Pulse 70 05/19/23 08:00 Resp 19 05/19/23 08:00 BP 146/72 05/19/23 07:17 Pulse Ox 95 05/19/23 07:17 FiO2 Intake & Output 05/18/23 05/19/23 05/19/23 18:59 06:59 18:59 Intake Total 200 Balance 200 Intake: Oral 200 Other: Voiding Method Toilet Urinal # Voids 3 8 - Exam General appearance: The patient is alert, oriented, appears in no acute distress. HET: Head is normocephalic and atraumatic. Neck: Supple. Abdomen: Soft, obese, nondistended. Extremities: Left Charcot appearing foot with dressing with crowell drainage and malodorous. Neurological: No focal deficits. Strength and sensation are grossly intact. - Labs CBC & Chem 7: 05/17/23 06:16 05/19/23 05:36 Labs: Abnormal Lab Results - Last 24 Hours (Table) 05/18/23 05/18/23 05/19/23 Range/Units 17:00 21:47 06:46 POC Glucose (mg/dL) 201 H 209 H 168 H (70-110) mg/dL 05/19/23 Range/Units 11:48 POC Glucose (mg/dL) 209 H (70-110) mg/dL Assessment and Plan Assessment: 1. Infected diabetic foot wound, left 2. Charcot foot 3. Diabetes mellitus Plan: 1. Continue daily dressing changes, recommend Dakin's wet-to-dry dressing change to heel wound 2. Continue antibiotics per recommendations from infectious disease 3. Patient may require potential amputation in the future however patient is refusing any surgical intervention at this time including aggressive debridement in the operating room. 4. Would recommend formal outpatient wound care Thank you for this consultation, we will sign off at this time. If anything changes with patient and he changes his mind would consider any surgical intervention please do not hesitate to reconsult us. The impression and plan of care has been dictated as directed. Dr. Lorenzo I performed a history and examination of this patient, discussed the same with the dictator. I agree with the dictator's note ,documented as a scribe. Any additional findings or plans will be noted.
--- NOTE | 2023-05-19 14:20 | CDI ---
Documentation Clarification Form Date: 05/19/2023 01:50:37 PM From: Polina Marina RN CCDS Phone: [phone] Admit Date: 05/14/2023 03:58:00 PM Patient Name: Devon Romero Visit Number: [id number] Discharge Date: ATTENTION: The Clinical Documentation Specialists (CDI) and [facility] Coding Staff appreciate your assistance in clarifying documentation. Please respond to the clarification below the line at the bottom and electronically sign. The CDI & [facility] Coding staff will review the response and follow-up if needed. Please note: Queries are made part of the Legal Health Record. If you have any questions, please contact the author of this message via ITS. Dr. Ivonne Domínguez A debridement is documented 05/14, Vascular Surgery Consult note. Additional clarification regarding the procedure is requested. History/Risk Factors: 52 year old male presented for evaluation of his diabetic foot wound, there was concern for potential abscess. Medical History: Chronic lower extremity wound, DM, HLD and HTN. Vascular Surgery Consult, 05/14. Clinical Indicators: Vascular Surgery consult 05/14: The wounds at the heel were sharply debrided with scissors and opened to allow for for evaluation of the wound. It did appear to track altogether. Bedside debridement at this time shows no significant tunneling other than at the local portions of the wound at the heel. Treatment: Debridement of left foot wound with scissors Please clarify the type of procedure performed using the five elements required for accurate and compliant documentation of a debridement: [ x ] Excisional debridement (the removal of necrotic, devitalized tissue or slough by means of cutting away of tissue) [ ] Non-excisional debridement (the removal of necrotic, devitalized tissue or slough by means of flushing, brushing, or washing. (Irrigation) [ ] Other, please specify [ ] Unable to determine [ x] Nature of the tissue removed (e.g., necrotic, devitalized tissues, non- viable tissue, etc.) devitalized adn fibrinous tissue removed [ ] Other; please specify [ ] Unable to determine [ x ] Appearance and size of the wound (e.g., down to fresh bleeding tissue, 7cm x 10cm, etc.) no appreciable healthy tissue at this point. Will need further debridement, 3 different areas of wounds with undermining and connection deep for total measurement of [id number] ro the level of subcutaneous tissues [ ] Other; please specify [ ] Unable to determine [ x ] Depth of the debridement* (e.g., skin, subcutaneous tissue, fascia, muscle, bone, etc.) [ ] Other, please specify [ ] Unable to determine Five elements required for accurate and compliant documentation of a debridement: Technique used (e.g., excisional, excised, cutting, brushing, jet lavage etc.) Instrument(s) used (e.g., scalpel, curette, etc.) Nature of the tissue removed (e.g., necrotic, devitalized tissues, non-viable tissue, etc.) Appearance and size of the wound (e.g., down to fresh bleeding tissue, 7cm x 10cm, etc.) Depth of the debridement* (e.g., skin, subcutaneous tissue, fascia, muscle, bone, etc.) (Template Last Revised: June 2020) MTDD
[2023-05-19] MEDS: VANCOMYCIN TROUGH DUE 1 EACH MISC MISCELLANE ONE (15:23)
[2023-05-19 16:51] LABS: Glucose,Whole Blood 161 mg/dL (70-110)
[2023-05-19 20:55] LABS: Glucose,Whole Blood 292 mg/dL (70-110)
[2023-05-19] MEDS: INSULIN DETEMIR (LEVEMIR) 100 UNIT/ML SYR SQ SCH (21:28)
--- NOTE | 2023-05-19 22:52 | P.PN ---
Subjective Progress Note Date: 05/19/23 Principal diagnosis: Reason for follow-up is left foot abscess and cellulitis This is a telehealth visit Patient is a 52-year-old male with a past medical history negative for diabetes mellitus hypertension hyperlipidemia apparently patient did have a wound to his left foot, presented to hospital with worsening swelling and concern for an abscess did have a bedside debridement by vascular surgery CT has been suggestive of subcutaneous tissue swelling. On today's evaluation that is 05/19/2023 the patient remains to be afebrile, patient is breathing comfortably on room air without need for supplemental oxygen, the patient denies having any chest pain no significant cough or sputum production no nausea vomiting no abdominal pain and no diarrhea, the patient denies any worsening pain to the left foot or any further foul-smelling drainage. Patient white count was 7.10 and creatinine 0.69 as of 05/17/2023 culture has been negative for any resistant pathogen Objective - Vital Signs Vital signs: Vital Signs Temp 98.1 F 05/19/23 07:17 Pulse 70 05/19/23 08:00 Resp 19 05/19/23 08:00 BP 146/72 05/19/23 07:17 Pulse Ox 95 05/19/23 07:17 FiO2 Intake & Output 05/18/23 05/19/23 05/19/23 18:59 06:59 18:59 Intake Total 200 Balance 200 Intake: Oral 200 Other: Voiding Method Toilet Urinal # Voids 3 8 - Exam GENERAL DESCRIPTION: Middle-age male lying in bed in no distress RESPIRATORY SYSTEM: Unlabored breathing , decreased breath sounds at bases HEART: S1 S2 regular rate and rhythm , ABDOMEN: Soft , no tenderness EXTREMITIES: Left foot plantar aspect did have multiple open wounds with surrounding swelling and redness - Labs CBC & Chem 7: 05/17/23 06:16 05/19/23 05:36 Labs: Abnormal Lab Results - Last 24 Hours (Table) 05/18/23 05/18/23 05/18/23 Range/Units 11:42 17:00 21:47 POC Glucose (mg/dL) 278 H 201 H 209 H (70-110) mg/dL 05/19/23 Range/Units 06:46 POC Glucose (mg/dL) 168 H (70-110) mg/dL Assessment and Plan (1) Foot abscess, left Current Visit: Yes Status: Acute Code(s): L02.612 - CUTANEOUS ABSCESS OF LEFT FOOT SNOMED Code(s): 16262638437053418 (2) Diabetic infection of left foot Current Visit: Yes Status: Acute Code(s): E11.628 - TYPE 2 DIABETES MELLITUS WITH OTHER SKIN COMPLICATIONS; L08.9 - LOCAL INFECTION OF THE SKIN AND SUBC UTANEOUS TISSUE, UNSP SNOMED Code(s): 64243412 (3) Leg wound, left Current Visit: Yes Status: Acute Code(s): S81.802A - UNSPECIFIED OPEN WOUND, LEFT LOWER LEG, INITIAL ENCOUNTER SNOMED Code(s): 551946794 Plan: 1patient with the left foot plantar abscess status post surgical drainage we will need to cover for the polymicrobial cat usually associated with this type of infection especially gas-forming 2-local cultures are so far negative 3-patient cultures has been negative for any resistant pathogen we will disc ontinue vancomycin and cefepime start the patient on Unasyn 3 g every 6 hours vascular surgery has offered amputation however the patient is refusing and want to save his foot may benefit from PICC line and custodial placement for IV antibiotic therapy I am not confident patient will be able to manage IV antibiotics at home This has been communicated with the admitting physician via text Dictation was produced using [employer] software. please excuse any grammatical, word or spelling errors. Time with Patient: Less than 30
[2023-05-19] MEDS: AMPICILLIN-SULBACTAM 3 GM in SODIUM CHLORIDE 0.9% 100 ML IVPB SCH (23:15)
[2023-05-19] MEDS: LORazepam 2 MG/ML INJ IV PRN (23:15)
--- NOTE | 2023-05-20 04:15 | PN ---
PROGRESS NOTE SUBJECTIVE: A 52-year-old white male, remains on IV cefepime and IV vancomycin. Had a bowel movement. He told he has some neuropathic pain in lower extremities. Continue surgical intervention with Vascular. Wound dressed per Dr. Lorenzo. Pain in lower extremities. Remains on IV cefepime, IV vancomycin . Labs reviewed. Medicines reviewed. OBJECTIVE: VITAL SIGNS: Temp 97.8, pulse 80, respiratory rate 16 to 18, O2 98% on room air. HEENT: Normocephalic, atraumatic. Pupils equal, round, reactive. LUNGS: Clear. CARDIOVASCULAR: S1, S2. ABDOMEN: Soft, nontender. PSYCH: Fair mood and affect. NEUROLOGIC: Chronic venous stasis changes. LABORATORY DATA: White count 7.1, hemoglobin is 11.5, potassium 3.9. ASSESSMENT: Acute on chronic left foot diabetic wound infection, failed outpatient treatment with plantar abscess, slow to respond, underwent local debridement, Domínguez. Refuses surgery. IV cefepime, IV vancomycin. Hypertension, on Zestril. Type 2 diabetes mellitus, on metformin and Levemir 50, NovoLog 3 units t.i.d. Dyslipidemia, on Zocor. Peripheral neuropathy, on Lyrica and [place]. Gastroesophageal reflux disease, Pepcid. Full code. Broad-spectrum antibiotics per Dr. Mendez, possible PICC line for outpatient IV antibiotic treatment. Wait for Dr. Mendez's recommendations. MMODL / IJN: [id number] /
[2023-05-20 06:02] LABS: Glucose,Whole Blood 140 mg/dL (70-110)
[2023-05-20 06:11] LABS: African American GFR (CKD) >90 (>60 ml/min/1.73 sqM); Non-African American GFR(CKD) >90 (>60 ml/min/1.73 sqM)
[2023-05-20 06:12] LABS: INR 1.1 (<1.2); Prothrombin Time 11.5 sec (10.0-12.5)
[2023-05-20] MEDS ORDERED: VANCOMYCIN 1,500 MG in SODIUM CHLORIDE 0.9% 500 ML 500 ML IVPB SCH (09:00)
[2023-05-20 11:44] LABS: Glucose,Whole Blood 208 mg/dL (70-110)
[2023-05-20] MEDS: LIDOCAINE 1% INJ 10MG/ML (5 ML VIAL-PF) SQ ONE (15:36)
--- NOTE | 2023-05-20 15:44 | P.OP ---
Date of Procedure: 05/20/23 Preoperative Diagnosis: left foot infection, need for IV antibiotics Postoperative Diagnosis: Same Procedure(s) Performed: Left basilic vein PICC placement under ultrasound and fluoroscopic guidance Anesthesia: local Surgeon: Lazaro Lorenzo Pathology: none sent Condition: stable Disposition: floor Description of Procedure: After written and informed consent was obtained the patient and all risks, benefits and competitions were described the patient was brought to the Resistance Welding Machine Operator and laid in a supine position with his left arm outstretched on an armboard. The area of the left arm was prepped and draped in usual sterile fashion. Timeout was performed in normal fashion. Utilizing ultrasound the basilic vein was visualized and shown to be compressible without any visible thrombus. Under ultrasound guidance the basilic vein was then cannulated with a micropuncture needle and wire was placed under direct visualization of fluoroscopy. Introducer sheath was then placed. The catheter was measured and cut to the appropriate length which was 50 cm. The catheter was then guided through the breakaway sheath and the sheath was removed with good positioning was visualized under fluoroscopy. The catheter was pulled and flushed easily. It was then secured in place in normal fashion. Patient tolerated the procedure well was sent back to his room for recovery.
--- NOTE | 2023-05-20 15:57 | IR ---
PICC Insertion: EXAMINATION TYPE: IR cvc insert >=5 years Intraoperative/procedural fluoroscopic services were provid ed. CLINICAL INDICATION:Male, 52 years old with history of ABX, 50cm, left basillic vein, 0.3min fluoro, 1.499Troo3; , [facility] Total fluoroscopy time is 0 point min. DAP: 1.285 Gycm2 Please see the operative/procedural note for further details.
[2023-05-20 16:57] LABS: Glucose,Whole Blood 212 mg/dL (70-110)
[2023-05-20 21:28] LABS: Glucose,Whole Blood 215 mg/dL (70-110)
[2023-05-20] MEDS: IPRATROPIUM-ALBUTEROL 3 ML NEB INHALATION SCH (21:43)
[2023-05-21 05:43] LABS: Glucose,Whole Blood 172 mg/dL (70-110)
[2023-05-21 07:10] LABS: African American GFR (CKD) >90 (>60 ml/min/1.73 sqM); Non-African American GFR(CKD) >90 (>60 ml/min/1.73 sqM)
[2023-05-21] MEDS ORDERED: VANCOMYCIN IV PER PHARMACY 1 EACH MISC MISCELLANE PRN (10:37)
[2023-05-21 12:16] LABS: Glucose,Whole Blood 191 mg/dL (70-110)
[2023-05-21] MEDS: VANCOMYCIN 1,500 MG in SODIUM CHLORIDE 0.9% 500 ML 500 ML IVPB SCH (12:26)
[2023-05-21 17:13] LABS: Glucose,Whole Blood 216 mg/dL (70-110)
[2023-05-21 20:59] LABS: Glucose,Whole Blood 237 mg/dL (70-110)
--- NOTE | 2023-05-22 02:48 | PN ---
PROGRESS NOTE SUBJECTIVE: He is on IV Unasyn and IV antibiotics to take at home. Sugars mid 100s to 200s. Pressure will continue long-standing IV antibiotics since his breathing treatments were greatly improved his breathing and his energy level this is stable. OBJECTIVE: VITAL SIGNS: Afebrile. HEMATOLOGY: Negative for [place]. PSYCH: Fair mood and affect. HEART: Trace tricuspid regurg. PROGNOSIS: Guarded. Continue current treatment. Follow up in next 24 to 48 hours for possible IV antibiotics either at home or at senior living. MMODL / IJN: [id number] /
--- NOTE | 2023-05-22 05:54 | P.PN ---
Subjective Progress Note Date: 05/20/23 Principal diagnosis: Reason for follow-up is left foot abscess and cellulitis This is a telehealth visit Patient is a 52-year-old male with a past medical history negative for diabetes mellitus hypertension hyperlipidemia apparently patient did have a wound to his left foot, presented to hospital with worsening swelling and concern for an abscess did have a bedside debridement by vascular surgery CT has been suggestive of subcutaneous tissue swelling. On today's evaluation that is 05/20/2023 the patient continues to be afebrile, patient is breathing comfortably on room air , the patient denies having any chest pain no significant cough or sputum production no nausea vomiting no abdominal pain and no diarrhea has been reported or denies pain to the left foot wound area. Patient did have a INR of 1.1 creatinine 0.74 Objective - Vital Signs Vital signs: Vital Signs Temp 98.3 F 05/20/23 07:08 Pulse 77 05/20/23 07:08 Resp 19 05/20/23 07:08 BP 138/77 05/20/23 07:08 Pulse Ox 98 05/20/23 07:08 FiO2 Intake & Output 05/19/23 05/20/23 05/20/23 18:59 06:59 18:59 Other: Voiding Method Toilet Urinal # Voids 3 # Bowel Movements 1 - Exam GENERAL DESCRIPTION: Middle-age male lying in bed in no distress RESPIRATORY SYSTEM: Unlabored breathing , decreased breath sounds at bases HEART: S1 S2 regular rate and rhythm , ABDOMEN: Soft , no tenderness EXTREMITIES: Left foot plantar aspect did have multiple open wounds with surrounding swelling and redness - Labs CBC & Chem 7: 05/17/23 06:16 05/21/23 05:32 Labs: Abnormal Lab Results - Last 24 Hours (Table) 05/19/23 05/19/23 05/19/23 Range/Units 11:48 16:48 20:54 POC Glucose (mg/dL) 209 H 161 H 292 H (70-110) mg/dL 05/20/23 Range/Units 05:53 POC Glucose (mg/dL) 140 H (70-110) mg/dL Microbiology - Last 24 Hours (Table) 05/14/23 14:56 Blood Culture - Final Blood 05/14/23 14:56 Blood Culture - Final Blood 05/14/23 20:55 Anaerobic Culture - Final Foot - Right Anaerobic Gm Negative Bacilli Assessment and Plan (1) Foot abscess, left Current Visit: Yes Status: Acute Code(s): L02.612 - CUTANEOUS ABSCESS OF LEFT FOOT SNOMED Code(s): 85827110972202312 (2) Diabetic infection of left foot Current Visit: Yes Status: Acute Code(s): E11.628 - TYPE 2 DIABETES MELLITUS WITH OTHER SKIN COMPLICATIONS; L08.9 - LOCAL INFECTION OF THE SKIN AND SUBCUTANEOUS TISSUE, UNSP SNOMED Code(s): 18317468 (3) Leg wound, left Current Visit: Yes Status: Acute Code(s): S81.802A - UNSPECIFIED OPEN WOUND, LEFT LOWER LEG, INITIAL ENCOUNTER SNOMED Code(s): 976132643 Plan: 1patient with the left foot plantar abscess status post surgical drainage we will need to cover for the polymicrobial cat usually associated with this type of infection especially gas-forming 2-local cultures are so far negative 3-patient cultures has been negative for any resistant pathogen we will continue the patient on Unasyn it has been explained to the patient importance of the PICC line which she was initially refusing however subsequently agreed to wait was to get the PICC line plan is to continue with the Unasyn for 4 to 6 weeks and close outpatient follow-up Dictation was produced using [employer] dictation software. please excuse any grammatical, word or spelling errors.
--- NOTE | 2023-05-22 05:55 | P.PN ---
Subjective Progress Note Date: 05/21/23 Principal diagnosis: Reason for follow-up is left foot abscess and cellulitis This is a telehealth visit Patient is a 52-year-old male with a past medical history negative for diabetes mellitus hypertension hyperlipidemia apparently patient did have a wound to his left foot, presented to hospital with worsening swelling and concern for an abscess did have a bedside debridement by vascular surgery CT has been suggestive of subcutaneous tissue swelling. On today's evaluation that is 05/21/2023, the patient is afebrile patient is breathing comfortably on room air without need for supplemental oxygen the patient denies chest pain, the patient did have occasional cough no sputum production patient denies abdominal pain no nausea no vomiting and denies having diarrhea, but denies any worsening pain to the left foot wound area. Patient did have a creatinine 0.75 cultures are now growing MRSA as well as anaerobic gram-negative bacilli and Enterococcus faecalis Objective - Vital Signs Vital signs: Vital Signs Temp 98.6 F 05/21/23 07:30 Pulse 84 05/21/23 08:53 Resp 20 05/21/23 07:30 BP 112/74 05/21/23 07:30 Pulse Ox 98 05/21/23 07:30 FiO2 Intake & Output 05/20/23 05/21/23 05/21/23 18:59 06:59 18:59 Weight 104.326 kg Other: Voiding Method Toilet # Voids 0 - Exam Middle-age male lying in bed in no distress Respiratory system unlabored breathing decreased breath sound the base Heart S1-S2 regular Abdominal soft no tenderness Left foot plantar wound with minimal ulceration surrounding swelling redness Exam completed with the help of HOTEL FRONT DESK AGENT - Labs CBC & Chem 7: 05/17/23 06:16 05/21/23 05:32 Labs: Abnormal Lab Results - Last 24 Hours (Table) 05/20/23 05/20/23 05/20/23 Range/Units 11:43 16:55 21:27 POC Glucose (mg/dL) 208 H 212 H 215 H (70-110) mg/dL 05/21/23 Range/Units 05:41 POC Glucose (mg/dL) 172 H (70-110) mg/dL Microbiology - Last 24 Hours (Table) 05/14/23 20:55 Gram Stain - Final Foot - Right Wound Culture - Final Methicillin resist S. aureus Enterococcus faecalis Assessment and Plan (1) Foot abscess, left Current Visit: Yes Status: Acute Code(s): L02.612 - CUTANEOUS ABSCESS OF LEFT FOOT SNOMED Code(s): 31057347501602342 (2) Diabetic infection of left foot Current Visit: Yes Status: Acute Code(s): E11.628 - TYPE 2 DIABETES MELLITUS WITH OTHER SKIN COMPLICATIONS; L08.9 - LOCAL INFECTION OF THE SKIN AND SUBCUTANEOUS TISSUE, UNSP SNOMED Code(s): 90198514 (3) Leg wound, left Current Visit: Yes Status: Acute Code(s): S81.802A - UNSPECIFIED OPEN WOUND, LEFT LOWER LEG, INITIAL ENCOUNTER SNOMED Code(s): 583781106 Plan: 1patient with the left foot plantar abscess status post surgical drainage we will need to cover for the polymicrobial cat usually associated with this type of infection especially gas-forming 2-local cultures are so far negative 3-patient cultures has been updated today now growing Enterococcus faecalis MRSA and anaerobic gram-negative bacilli vancomycin has been restarted on Unasyn will be switched to Flagyl plan is for total of 6-week course of therapy and close outpatient follow-up Dictation was produced using [employer] dictation software. please excuse any grammatical, word or spelling errors. Time with Patient: Greater than 30
[2023-05-22 06:11] LABS: Glucose,Whole Blood 263 mg/dL (70-110)
[2023-05-22] MEDS: metroNIDAZOLE 500 MG TAB PO SCH (09:13)
[2023-05-22 11:41] LABS: Glucose,Whole Blood 110 mg/dL (70-110)
[2023-05-22 16:25] LABS: Glucose,Whole Blood 229 mg/dL (70-110)
[2023-05-22 20:35] LABS: Glucose,Whole Blood 170 mg/dL (70-110)
--- NOTE | 2023-05-22 23:43 | PN ---
PROGRESS NOTE SUBJECTIVE: The patient is going to be set up with IV antibiotics and a PIC for PICC line, will get a PICC line placed. Go to rehab center. Temperature 98.6, pulse 84, respiratory rate 18 to 20, blood pressure 112/74, O2 98. The cultures grown MRSA, foot abscess, left diabetic foot infection, wound infection, Enterococcus faecalis, MRSA all medications, restarted on Unasyn, switched to Flagyl, 6 weeks total therapy which outpatient. He has COPD also, takes breathing treatments. He will stay on these in the assisted no matter what anybody says and his sugar is in the mid 200s to 100s. Will keep his sugars under control. PROGNOSIS: Guarded. MMODL / IJN: [id number] /
--- NOTE | 2023-05-23 02:23 | P.PN ---
Subjective Progress Note Date: 05/22/23 Principal diagnosis: Reason for follow-up is left foot abscess and cellulitis This is a telehealth visit Patient is a 52-year-old male with a past medical history negative for diabetes mellitus hypertension hyperlipidemia apparently patient did have a wound to his left foot, presented to hospital with worsening swelling and concern for an abscess did have a bedside debridement by vascular surgery CT has been suggestive of subcutaneous tissue swelling. On today's evaluation that is 05/22/2023 patient remains to be afebrile, the patient is breathing comfortably and is currently on room air the patient denies having any chest pain no significant cough or sputum production patient denies having abdominal pain no nausea no vomiting and no diarrhea has been reported. Patient denies pain to the left foot wound area. No new labs has been obtained today's creatinine was 0.75 as of yesterday Objective - Vital Signs Vital signs: Vital Signs Temp 98.6 F 05/22/23 20:00 Pulse 84 05/22/23 21:20 Resp 18 05/22/23 20:00 BP 136/70 05/22/23 20:00 Pulse Ox 98 05/22/23 20:00 FiO2 Intake & Output 05/22/23 05/22/23 05/23/23 06:59 18:59 06:59 Intake Total 1072 Balance 1072 Intake: Oral 1072 Other: Voiding Method Toilet # Voids 6 2 # Bowel Movements 2 1 - Exam Middle-age male lying in bed in no distress Respiratory system unlabored breathing decreased breath sound the base Heart S1-S2 regular Abdominal soft no tenderness Left foot plantar wound with minimal ulceration surrounding swelling redness Exam completed with the help of MONE[employer] MARKET DEALER - Labs CBC & Chem 7: 05/17/23 06:16 05/21/23 05:32 Labs: Abnormal Lab Results - Last 24 Hours (Table) 05/22/23 05/22/23 05/22/23 Range/Units 06:03 16:23 20:34 POC Glucose (mg/dL) 263 H 229 H 170 H (70-110) mg/dL Assessment and Plan (1) Foot abscess, left Current Visit: Yes Status: Acute Code(s): L02.612 - CUTANEOUS ABSCESS OF LEFT FOOT SNOMED Code(s): 43835256598405602 (2) Diabetic infection of left foot Current Visit: Yes Status: Acute Code(s): E11.628 - TYPE 2 DIABETES MELLITUS WITH OTHER SKIN COMPLICATIONS; L08.9 - LOCAL INFECTION OF THE SKIN AND SUBCUTANEOUS TISSUE, UNSP SNOMED Code(s): 97734939 (3) Leg wound, left Current Visit: Yes Status: Acute Code(s): S81.802A - UNSPECIFIED OPEN WOUND, LEFT LOWER LEG, INITIAL ENCOUNTER SNOMED Code(s): 809960766 Plan: 1patient with the left foot plantar abscess status post surgical drainage we will need to cover for the polymicrobial cat usually associated with this type of infection especially gas-forming 2-blood culture so far negative 3-patient did grew Enterococcus faecalis MRSA and anaerobic gram-negative bacilli in his foot wound culture 4-patient did get a PICC line plan is for vancomycin pharmacy to dose along with oral Flagyl 4 to 6 weeks depending upon his clinical response and close outpatient follow-up Dictation was produced using [employer] dictation software. please excuse any grammatical, word or spelling errors. Time with Patient: Less than 30
[2023-05-23 05:47] LABS: Glucose,Whole Blood 145 mg/dL (70-110)
[2023-05-23 08:47] LABS: African American GFR (CKD) >90 (>60 ml/min/1.73 sqM); Non-African American GFR(CKD) >90 (>60 ml/min/1.73 sqM)
[2023-05-23] MEDS: VANCOMYCIN TROUGH DUE 1 EACH MISC MISCELLANE ONE (09:30)
[2023-05-23 12:09] LABS: Glucose,Whole Blood 176 mg/dL (70-110)
[2023-05-23 17:12] LABS: Glucose,Whole Blood 254 mg/dL (70-110)
[2023-05-23 19:50] LABS: Glucose,Whole Blood 313 mg/dL (70-110)
[2023-05-23 20:23] VITALS: RESP 18
[2023-05-23] MEDS: ALPRAZolam 0.5 MG TAB PO PRN (21:40)
--- NOTE | 2023-05-23 23:28 | P.PN ---
Subjective Progress Note Date: 05/23/23 Principal diagnosis: Reason for follow-up is left foot abscess and cellulitis This is a telehealth visit Patient is a 52-year-old male with a past medical history negative for diabetes mellitus hypertension hyperlipidemia apparently patient did have a wound to his left foot, presented to hospital with worsening swelling and concern for an abscess did have a bedside debridement by vascular surgery CT has been suggestive of subcutaneous tissue swelling. On today's evaluation that is 05/23/2023, the patient is afebrile, the patient is breathing comfortably on room air, the patient denies having any shortness of breath chest pain or cough.Patient denies having any abdominal pain no nausea vomiting or any diarrhea, no worsening pain to the left foot. Patient did have a creatinine 0.82 her Vanco trough was 18.3 Objective - Vital Signs Vital signs: Vital Signs Temp 98.6 F 05/23/23 07:43 Pulse 92 05/23/23 07:43 Resp 18 05/23/23 07:43 BP 118/76 05/23/23 07:43 Pulse Ox 93 L 05/23/23 07:43 FiO2 Intake & Output 05/22/23 05/23/23 05/23/23 18:59 06:59 18:59 Intake Total 1072 740 Balance 1072 740 Intake: Intake, IV Titration 740 Amount Sodium Chloride 0.9% 1, 240 000 ml @ 20 mls/hr IV . Q24H [facility] Rx#:[id number] Vancomycin 1,500 mg In 500 Sodium Chloride 0.9% 500 ml 500 ml @ 167 mls/hr IVPB Q12HR [facility] Rx#: [id number] Oral 1072 Other: Voiding Method Toilet Toilet # Voids 2 # Bowel Movements 1 - Labs CBC & Chem 7: 05/17/23 06:16 05/23/23 08:09 Labs: Abnormal Lab Results - Last 24 Hours (Table) 05/22/23 05/22/23 05/23/23 Range/Units 16:23 20:34 05:46 POC Glucose (mg/dL) 229 H 170 H 145 H (70-110) mg/dL Assessment and Plan (1) Foot abscess, left Current Visit: Yes Status: Acute Code(s): L02.612 - CUTANEOUS ABSCESS OF LEFT FOOT SNOMED Code(s): 63741191490465354 (2) Diabetic infection of left foot Current Visit: Yes Status: Acute Code(s): E11.628 - TYPE 2 DIABETES MELLITUS WITH OTHER SKIN COMPLICATIONS; L08.9 - LOCAL INFECTION OF THE SKIN AND SUBCUTANEOUS TISSUE, UNSP SNOMED Code(s): 00617152 (3) Leg wound, left Current Visit: Yes Status: Acute Code(s): S81.802A - UNSPECIFIED OPEN WOUND, LEFT LOWER LEG, INITIAL ENCOUNTER SNOMED Code(s): 995482459 Plan: 1patient with the left foot plantar abscess status post surgical drainage we will need to cover for the polymicrobial cat usually associated with this type of infection especially gas-forming 2-blood culture so far negative 3-patient did grew Enterococcus faecalis MRSA and anaerobic gram-negative bacilli in his foot wound culture 4-patient did get a PICC line 5- plan is for vancomycin pharmacy to dose along with oral Flagyl 4- 6 weeks depending upon his clinical response, currently waiting for placement Dictation was produced using [employer] dictation software. please excuse any grammatical, word or spelling errors. Time with Patient: Less than 30
[2023-05-24 05:51] LABS: Glucose,Whole Blood 210 mg/dL (70-110)
--- NOTE | 2023-05-24 06:10 | DS ---
DISCHARGE SUMMARY DISCHARGE DIAGNOSES: 1. Diabetic infection of the left foot. 2. Foot abscess, left. 3. Leg wound, left, diabetic foot infection. 4. Abdominal pain. 5. Insulin-dependent diabetes mellitus. 6. Hypertension. 7. Diastolic heart failure. 8. COPD. 9. Dyslipidemia. 10.Chronic pain syndrome. 11.Hypertension. MEDICATIONS: 1. Flagyl 500 t.i.d. #90. 2. Vancomycin 1500 mg IV piggyback every 12 hours, #84. 3. Coreg 6.25 b.i.d. 4. Levemir 15 units daily. 5. NovoLog 3 units plus sliding scale a.c. h.s. 6. Tylenol 650 p.o. q.6 hours for mild pain. 7. Xanax 0.5 mg q.12 hours b.i.d. p.r.n. for anxiety. 8. DuoNeb updrafts q.i.d. 4 times a day, do not stop these. 9. Januvia 100 mg daily. 10.Zocor 20 mg daily. 11.Jardiance 25 mg daily. 12.Lasix 40 mg daily. 13.Lyrica 200 t.i.d. 14.Multivitamin daily. 15.Zestril 20 mg daily. 16.[place] 7.5 t.i.d. 17.Famotidine 20 b.i.d. 18.Renvela 800 with supper. 19.Vitamin D 1250 mcg p.o. once a week. 20.Metformin 1000 b.i.d. 21.Lamisil 250 daily. CONDITION: Stable. PROGNOSIS: Guarded. ACTIVITY: Ambulate as tolerated. The patient came to the house with diabetic wound infection. Did not want amputation. Dr. Mendez did some cultures, after wound debridement, he had anaerobic culture showing gram-negative bacilli. He has MRSA and enteral faecalis. Currently, he will possibly go home on Vancomycin for MRSA, enterococcus faecalis with susceptibility on the wound, susceptible to vancomycin, which we need to do as mentioned above with Flagyl which is Vancomycin to be given as he is drug resistant to a lot of drugs. Prognosis is guarded. Please see further orders. Ambulate as tolerated. Dr. Mendez saw him also, had wound debridement in the OR but did not want amputation. He is breathing comfortable today, Flagyl, vancomycin 4 to 6 weeks. Continue with breathing treatments, DuoNeb q.i.d., Accu-Chek protocol as mentioned above for diabetes control. Aspiration precautions, elevate head of bed. Prognosis guarded. Follow up Dr. Hooper in a week. MMPIETROL / RAISAN: [id number] /
[2023-05-24 09:29] VITALS: BP 137/75; TEMP 100.2
[2023-05-24 11:41] LABS: Glucose,Whole Blood 360 mg/dL (70-110)
[2023-05-24 12:23] VITALS: PULSE 80
--- NOTE | 2023-05-28 11:11 | CDI ---
Documentation Clarification Form Date: 05/28/2023 10:38:57 AM From: Joie Pop RN, CCDS Email: [email or web address] Admit Date: 05/14/2023 03:58:00 PM Patient Name: Devon Romero Visit Number: [id number] Discharge Date: 05/24/2023 01:07:00 PM ATTENTION: The Clinical Documentation Specialists (CDI) and [facility] Coding Staff appreciate your assistance in clarifying documentation. Please respond to the clarification below the line at the bottom and electronically sign. The CDI & [facility] Coding staff will review the response and follow-up if needed. Please note: Queries are made part of the Legal Health Record. If you have any questions, please contact the author of this message via ITS. Dr. Mt Hooper Rule out necrotizing gangrene was documented in the H&P. Based on this information and the findings below, is there an additional diagnosis that is clinically appropriate for this patient? Patient history/risk factors: COPD, HTN, DM. The H&P indicates the patient presents with severe left foot wound. He has foul-smelling open wounds to the foot. He was sent here by Dr. Vizcaino, needs a debridement versus possible amputation. He was producing foul smelling material. Low-grade fevers at home and some chills. Clinical Indicators: 05/14 left foot xray: Air in the subcutaneous tissues suggest gas-forming infectious cellulitis 05/14 CT LLE: Subcutaneous gas along the dorsal foot with skin defect 05/14 ED: "X-ray shows questionable subcutaneous gas raising the suspicion of possible necrotizing infection." 05/16 H&P: "He has a leaking wound to the posterior aspect with subcutaneous gas, suspicion of possible necrotizing infection of the foot. Continue with the necrotizing infection medications, IV antibiotics, debridement." Treatment: S/P excisional debridement on 05/14 Antibiotics: IV Unasyn 3gm Q6H 05/19-05/22; IV Cefepime 2gm on 05/14; IV Cefepime 2gm Q8H 05/15-05/19; IV Zosyn 3.375 gm x1 on 05/14; IV Vancomycin 1750 mg x1 on 05/14 and 05/15 then IV Vancomycin 1500mg Q12H 05/21-05/24. Is there an additional diagnosis that is clinically appropriate for this patient? [ ] Gas gangrene [ ] No additional diagnosis/Not clinically significant [ ] Other, please specify [ ] Unable to determine MTDD
--- NOTE | 2023-05-31 22:48 | P.PN ---
Subjective Progress Note Date: 05/24/23 Principal diagnosis: Reason for follow-up is left foot abscess and cellulitis This is a telehealth visit Patient is a 52-year-old male with a past medical history negative for diabetes mellitus hypertension hyperlipidemia apparently patient did have a wound to his left foot, presented to hospital with worsening swelling and concern for an abscess did have a bedside debridement by vascular surgery CT has been suggestive of subcutaneous tissue swelling. On today's evaluation that is 05/24/2023, the patient remains to be afebrile, the patient is breathing comfortably on room air, the patient denies having any shortness of breath chest pain or cough.Patient denies having any abdominal pain no nausea vomiting or any diarrhea, pain to the left foot is currently cont rolled. Patient did not have any labs done today Objective - Vital Signs Vital signs: Vital Signs Temp 100.2 F H 05/24/23 07:46 Pulse 84 05/24/23 08:26 Resp 18 05/24/23 07:46 BP 137/75 05/24/23 07:46 Pulse Ox 93 L 05/24/23 07:46 FiO2 Intake & Output 05/23/23 05/24/23 05/24/23 18:59 06:59 18:59 Other: Voiding Method Toilet # Voids 4 3 # Bowel Movements 1 - Exam Middle-age male lying in bed in no distress Respiratory system unlabored breathing decreased breath sound the base Heart S1-S2 regular Abdominal soft no tenderness Left foot plantar wound currently dressed with no drainage on the dressing Exam completed with the help of DESIGN COORDINATOR - Labs CBC & Chem 7: 05/17/23 06:16 05/23/23 08:09 Labs: Abnormal Lab Results - Last 24 Hours (Table) 05/23/23 05/23/23 05/23/23 Range/Units 12:06 17:11 19:39 POC Glucose (mg/dL) 176 H 254 H 313 H (70-110) mg/dL 05/24/23 Range/Units 05:50 POC Glucose (mg/dL) 210 H (70-110) mg/dL Assessment and Plan (1) Foot abscess, left Status: Acute Code(s): L02.612 - CUTANEOUS ABSCESS OF LEFT FOOT SNOMED Code(s): 03338890602153938 (2) Diabetic infection of left foot Status: Acute Code(s): E11.628 - TYPE 2 DIABETES MELLITUS WITH OTHER SKIN COMPLICATIONS; L08.9 - LOCAL INFECTION OF THE SKIN AND SUBCUTANEOUS TISSUE, UNSP SNOMED Code(s): 08719373 (3) Leg wound, left Status: Acute Code(s): S81.802A - UNSPECIFIED OPEN WOUND, LEFT LOWER LEG, INITIAL ENCOUNTER SNOMED Code(s): 397051577 Plan: 1patient with the left foot plantar abscess status post surgical drainage we will need to cover for the polymicrobial cat usually associated with this type of infection especially gas-forming 2-blood culture so far negative 3-patient did grew Enterococcus faecalis MRSA and anaerobic gram-negative bacilli in his foot wound culture 4-patient did get a PICC line , patient will continue with vancomycin pharmacy to dose along with oral Flagyl 4- 6 weeks depending upon his clinical response, with weekly monitoring of CRP and sed rate and close outpatient follow-up Dictation was produced using [employer] dictation software. please excuse any grammatical, word or spelling errors. Time with Patient: Less than 30
--- NOTE | 2023-06-22 13:52 | PN ---
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 MMODL / IJN: [id number] /
== END 2023-05-24 13:07 | DRG 197 ==
LOC: EC 14:51 → 1SOBS 15:58 → 4SSUR 16:49
PROVIDERS: ADMIT Family Medicine; ATTEND Family Medicine
PROC: 0JBR0ZZ Excision of Left Foot Subcutaneous Tissue and Fascia, Open Approach (ICD-10-PCS; principal; 2023-05-14)
PROC: B548ZZA Ultrasonography of Superior Vena Cava, Guidance (ICD-10-PCS; 2023-05-20)
PROC: 02HV33Z Insertion of Infusion Device into Superior Vena Cava, Percutaneous Approach (ICD-10-PCS; 2023-05-20)
DX: E11.52 Type 2 diabetes mellitus with diabetic peripheral angiopathy with gangrene (principal); E11.621 Type 2 diabetes mellitus with foot ulcer; L97.529 Non-pressure chronic ulcer of other part of left foot with unspecified severity; A48.0 Gas gangrene; J44.9 Chronic obstructive pulmonary disease, unspecified; E11.610 Type 2 diabetes mellitus with diabetic neuropathic arthropathy; E11.628 Type 2 diabetes mellitus with other skin complications; E11.649 Type 2 diabetes mellitus with hypoglycemia without coma; E11.42 Type 2 diabetes mellitus with diabetic polyneuropathy; E66.9 Obesity, unspecified; E78.5 Hyperlipidemia, unspecified; G89.4 Chronic pain syndrome; I50.30 Unspecified diastolic (congestive) heart failure; I11.0 Hypertensive heart disease with heart failure; K21.9 Gastro-esophageal reflux disease without esophagitis; L02.612 Cutaneous abscess of left foot; L03.116 Cellulitis of left lower limb; Z53.20 Procedure and treatment not carried out because of patient's decision for unspecified reasons; Z68.32 Body mass index [BMI] 32.0-32.9, adult; Z79.4 Long term (current) use of insulin; Z79.84 Long term (current) use of oral hypoglycemic drugs; Z79.899 Other long term (current) drug therapy; Z83.3 Family history of diabetes mellitus; Z87.891 Personal history of nicotine dependence; Z28.311 Partially vaccinated for COVID-19; Z28.21 Immunization not carried out because of patient refusal
CPT/HCPCS: 36415; 36573; 80048; 80053; 80202; 82565; 83036; 83605; 83735; 85025; 85610; 85652; 86140; 87040; 87070; 87075; 87077; 87186; 87205; 94640; 96361; 96365; 96366; 96367; 99284

== ENCOUNTER 2023-08-25 15:37 | Inpatient (IN) | payer OTHER ==
--- NOTE | 2023-08-25 16:18 | ED ---
General Adult HPI - General Chief complaint: Skin/Abscess/Foreign Body Stated complaint: Left Foot Wounds Time Seen by Provider: 08/25/23 16:14 Source: patient Mode of arrival: ambulatory Limitations: no limitations - History of Present Illness Initial comments: 52-year-old male with past medical history significant for diabetes presenting to the ED with a chief complaint of left foot wound. Patient reports that this is an ongoing problem and is unable to tell me when this originally started. However, reports that he follows with wound care and notes that he has "holes in his foot". Patient reports that it "tickles" when I am touching his foot. States he has a history of neuropathy however denies increased pain of the foot. Denies fever or chills. - Related Data Home Medications Medication Instructions Recorded Confirmed Empagliflozin [Jardiance] 25 mg PO DAILY 11/09/21 08/25/23 HYDROcodone/APAP 7.5-325MG [[place] 1 tab PO TID 11/09/21 08/25/23 7.5-325] Simvastatin [Zocor] 20 mg PO DAILY 11/09/21 08/25/23 sitaGLIPtin [Januvia] 100 mg PO DAILY 11/09/21 08/25/23 Famotidine 20 mg PO BID 07/01/22 08/25/23 Sevelamer [Renvela] 800 mg PO W/SUPPER 07/01/22 08/25/23 Ergocalciferol [Vitamin D2 (1250 1,250 mcg PO MO 10/01/22 08/25/23 Mcg = 04139 Iu)] metFORMIN HCL 1,000 mg PO BID 10/01/22 08/25/23 Terbinafine [LamISIL] 250 mg PO DAILY 02/05/23 08/25/23 Furosemide [Lasix] 40 mg PO DAILY 05/14/23 08/25/23 Multivitamins, Thera [Multivitamin 1 tab PO DAILY 05/14/23 08/25/23 (formulary)] Pregabalin [Lyrica] 200 mg PO TID 05/14/23 08/25/23 lisinopriL [Zestril] 20 mg PO DAILY 05/14/23 08/25/23 Previous Rx's Medication Instructions Recorded Ipratropium-Albuterol Nebulize 3 ml INHALATION RT-QID 90 Days 05/23/23 [Duoneb 0.5 mg-3 mg/3 ml Soln] #360 each Allergies Allergy/AdvReac Type Severity Reaction Status Date / Time No Known Allergies Allergy Verified 08/25/23 18:14 Review of Systems ROS Statement: Those systems with pertinent positive or pertinent negative responses have been documented in the HPI. ROS Other: All systems not noted in ROS Statement are negative. Past Medical History Past Medical History: Diabetes Mellitus, Hyperlipidemia, Hypertension Additional Past Medical History / Comment(s): STATES SORE ON THE BOTTOM OF LEFT FOOT. History of Any Multi-Drug Resistant Organisms: MRSA, VRE Date of last positivie culture/infection: MRSA 05/14/23; VRE 10/02/22 MDRO Source:: Right Foot-MRSA; Abdomen-VRE Past Surgical History: Hernia Repair Past Anesthesia/Blood Transfusion Reactions: No Reported Reaction Additional Past Anesthesia/Blood Transfusion Reaction / Comment(s): PT HAS NEVER RECEIVED ANESTHESIA. Past Psychological History: Anxiety Smoking Status: Former smoker Past Alcohol Use History: Occasional Past Drug Use History: None Reported - Past Family History Mother Family Medical History: Diabetes Mellitus Father Family Medical History: Cancer General Exam - General Exam Comments Initial Comments: Visual Physical Exam Vital signs reviewed General: Well-appearing, nontoxic, no acute distress. Head: Normocephalic, atraumatic Eyes: PERRLA, EOMI ENT: Airway patent Chest: Nonlabored breathing Skin: No visual rash, normal skin tone Neuro: Alert and oriented 3 Musculoskeletal: Left lower extremity with swelling, redness, open wound on the bottom of his foot with clear drainage. Limitations: no limitations General appearance: alert, in no apparent distress Eye exam: Present: normal appearance Neck exam: Present: normal inspection Respiratory exam: Present: normal lung sounds bilaterally Cardiovascular Exam: Present: tachycardia GI/Abdominal exam: Present: soft Extremities exam: Present: other (Right lower extremity shows diffuse swelling with erythema. On the plantar surface of the foot there are 2 open wounds. 1 is approximately 2 x 2 cm and the other is approximately 3 x 3 cm. The smaller open wound has purulent drainage. The bigger one has serous drainage. ) Neurological exam: Present: alert, oriented X3 Skin exam: Present: warm, dry Course Vital Signs 08/25/23 08/25/23 16:03 18:23 Temperature 99.4 F 98.6 F Pulse Rate 111 H 101 H Respiratory 20 Rate Blood Pressure 95/54 O2 Sat by Pulse 95 Oximetry Medical Decision Making - Medical Decision Making Quicknote portion performed. Signed Karsten Christina PA-C Was pt. sent in by a medical professional or institution (JAVIER Munoz, OPERATIONAL ASSISTANT, urgent care, hospital, or longterm...) When possible be specific @ -No Did you speak to anyone other than the patient for history (EMS, parent, family, police, friend...)? What history was obtained from this source @ -No Did you review nursing and triage notes (agree or disagree)? Why? @ -I reviewed and agree with nursing and triage notes Were old charts reviewed (outside hosp., previous admission, EMS record, old EKG, old radiological studies, urgent care reports/EKG's, longterm records)? Report findings @ -Old charts reviewed which was able to provide more history. Appears that this has been ongoing for a while over the past few months with prior imaging showing evidence of infection with subcutaneous gas Differential Diagnosis (chest pain, altered mental status, abdominal pain women, abdominal pain men, vaginal bleeding, weakness, fever, dyspnea, syncope, headache, dizziness, GI bleed, back pain, seizure, CVA, palpatations, mental health, musculoskeletal)? @ -Differential Musculoskeletal Muscular strain, contusion, ligament sprain, fracture, arthritis, septic arthritis, bursitis, cellulitis, muscle spasm, nerve compression, DVT, arterial occlusion, herpes zoster, electrolyte abnormality, tumor.... This is not meant to be in all inclusive list EKG interpreted by me (3pts min.). @ -Interpreted me showing a sinus tachycardia 102 bpm. MI 140, QRS 98, QT 333/392. No acute ST or T wave findings. X-rays interpreted by me (1pt min.). @ -X-ray of the foot shows diffuse swelling of the foot with subcutaneous gas throughout the foot concerning for cellulitis. No osseous erosion definitively visualized. CT interpreted by me (1pt min.). @ -None done U/S interpreted by me (1pt. min.). @ -None done What testing was considered but not performed or refused? (CT, X-rays, U/S, labs)? Why? @ -None What meds were considered but not given or refused? Why? @ -None Did you discuss the management of the patient with other professionals (professionals i.e. DrJenniffer, PA, OPERATIONAL ASSISTANT, lab, RT, psych nurse, social media strategist, licensed plumber, te acher, welfare officer, senior case manager)? Give summary @ -Case discussed with Dr. Hooper who accepts admission with consult to infectious disease. Was smoking cessation discussed for >3mins.? @ -No Was critical care preformed (if so, how long)? @ -Yes, 35 minutes Were there social determinants of health that impacted care today? How? (Homelessness, low income, unemployed, alcoholism, drug addiction, transportation, low edu. Level, literacy, decrease access to med. care, longterm, rehab)? @ -No Was there de-escalation of care discussed even if they declined (Discuss DNR or withdrawal of care, Hospice)? DNR status @ -No What co-morbidities impacted this encounter? (DM, HTN, Smoking, COPD, CAD, Cancer, CVA, ARF, Chemo, Hep., AIDS, mental health diagnosis, sleep apnea, morbid obesity)? @ -Diabetes Was patient admitted / discharged? Hospital course, mention meds given and route, prescriptions, significant lab abnormalities, going to OR and other pertinent info. @ -Admission 52-year-old male with a history of diabetes presenting to the ED with complaints of right foot infection. This has been ongoing for a while however reportedly worsening reporting wounds that will not close on the bottom of his foot. Laboratory studies reviewed. Patient did meet sepsis criteria at 1715 with a elevated white blood cell count at 17.1 with tachycardia and hypotension. However at this time lactic acid 1.4. Fluid resuscitation held at this time secondary to history of diastolic heart failure. IV antibiotics were ordered at 1830. Patient will be admitted with consults to wound care and vascular surgery . Discussed plan of care with patient who is in agreement. Undiagnosed new problem with uncertain prognosis? @ -No Drug Therapy requiring intensive monitoring for toxicity (Heparin, Nitro, Insulin, Cardizem)? @ -No Were any procedures done? @ -No Diagnosis/symptom? @ -Right foot infection Acute, or Chronic, or Acute on Chronic? @ -Acute Uncomplicated (without systemic symptoms) or Complicated (systemic symptoms)? @ -Complicated Side effects of treatment? @ -No Exacerbation, Progression, or Severe Exacerbation? @ -No Poses a threat to life or bodily function? How? (Chest pain, [place], [place], pneumonia, PE, COPD, DKA, ARF, appy, cholecystitis, CVA, Diverticulitis, Homicidal, Suicidal, threat to staff... and all critical care pts) @ -Yes, right foot infection and sepsis - Lab Data Result diagrams: 08/25/23 17:29 08/25/23 17:29 Lab Results 08/25/23 08/25/23 08/25/23 Range/Units 17: 17: 17: WBC 17.1 H (3.8-10.6) k/uL RBC 3.97 L (4.30-5.90) m/uL Hgb 12.1 L (13.0-17.5) gm/dL Hct 38.7 L (39.0-53.0) % MCV 97.6 (80.0-100.0) fL MCH 30.6 (25.0-35.0) pg MCHC 31.3 (31.0-37.0) g/dL RDW 14.1 (11.5-15.5) % Plt Count 297 (150-450) k/uL MPV 9.1 Neutrophils % 92 % Lymphocytes % 2 % Monocytes % 3 % Eosinophils % 0 % Basophils % 0 % Neutrophils # 15.7 H (1.3-7.7) k/uL Lymphocytes # 0.4 L (1.0-4.8) k/uL Monocytes # 0.5 (0-1.0) k/uL Eosinophils # 0.1 (0-0.7) k/uL Basophils # 0.0 (0-0.2) k/uL PT (10.0-12.5) sec INR (<1.2) APTT (22.0-30.0) sec Sodium 131 L (137-145) mmol/L Potassium 4.1 (3.5-5.1) mmol/L Chloride 103 (98-107) mmol/L Carbon Dioxide 15 L (22-30) mmol/L Anion Gap 13 mmol/L BUN 47 H (9-20) mg/dL Creatinine 1.19 (0.66-1.25) mg/dL Est GFR (CKD-EPI)AfAm 80 (>60 ml/min/1.73 sqM) Est GFR (CKD-EPI)NonAf 69 (>60 ml/min/1.73 sqM) Glucose 291 H (74-99) mg/dL Plasma Lactic Acid Juan 1.4 (0.7-2.0) mmol/L Calcium 8.3 L (8.4-10.2) mg/dL Total Bilirubin 0.6 (0.2-1.3) mg/dL AST 118 H (17-59) U/L ALT 85 H (4-49) U/L Alkaline Phosphatase 164 H (38-126) U/L Total Protein 6.2 L (6.3-8.2) g/dL Albumin 2.8 L (3.5-5.0) g/dL 08/25/23 Range/Units 18:40 WBC (3.8-10.6) k/uL RBC (4.30-5.90) m/uL Hgb (13.0-17.5) gm/dL Hct (39.0-53.0) % MCV (80.0-100.0) fL MCH (25.0-35.0) pg MCHC (31.0-37.0) g/dL RDW (11.5-15.5) % Plt Count (150-450) k/uL MPV Neutrophils % % Lymphocytes % % Monocytes % % Eosinophils % % Basophils % % Neutrophils # (1.3-7.7) k/uL Lymphocytes # (1.0-4.8) k/uL Monocytes # (0-1.0) k/uL Eosinophils # (0-0.7) k/uL Basophils # (0-0.2) k/uL PT 10.8 (10.0-12.5) sec INR 1.0 (<1.2) APTT 25.1 (22.0-30.0) sec Sodium (137-145) mmol/L Potassium (3.5-5.1) mmol/L Chloride (98-107) mmol/L Carbon Dioxide (22-30) mmol/L Anion Gap mmol/L BUN (9-20) mg/dL Creatinine (0.66-1.25) mg/dL Est GFR (CKD-EPI)AfAm (>60 ml/min/1.73 sqM) Est GFR (CKD-EPI)NonAf (>60 ml/min/1.73 sqM) Glucose (74-99) mg/dL Plasma Lactic Acid Juan (0.7-2.0) mmol/L Calcium (8.4-10.2) mg/dL Total Bilirubin (0.2-1.3) mg/dL AST (17-59) U/L ALT (4-49) U/L Alkaline Phosphatase (38-126) U/L Total Protein (6.3-8.2) g/dL Albumin (3.5-5.0) g/dL Disposition Clinical Impression: Foot infection Disposition: ADMITTED IP TO THIS HOSP Referrals: Mt Hooper MD [Primary Care Provider] - 1-2 days
[2023-08-25 17:35] LABS: Basophils % (A) 0 %; Eosinophils # (A) 0.1 k/uL (0-0.7); Eosinophils % (A) 0 %; HCT 38.7 % (39.0-53.0); HGB 12.1 gm/dL (13.0-17.5); Lymphocytes # (A) 0.4 k/uL (1.0-4.8); Lymphocytes % (A) 2 %; MCH 30.6 pg (25.0-35.0); MCHC 31.3 g/dL (31.0-37.0); MCV 97.6 fL (80.0-100.0); Mean Platelet Volume 9.1; Monocytes # (A) 0.5 k/uL (0-1.0); Monocytes % (A) 3 %; Neutrophils # (A) 15.7 k/uL (1.3-7.7); Neutrophils % (A) 92 %; Platelet Count 297 k/uL (150-450); RBC 3.97 m/uL (4.30-5.90); RDW 14.1 % (11.5-15.5); WBC 17.1 k/uL (3.8-10.6)
[2023-08-25 17:50] LABS: ALT 85 U/L (4-49); AST 118 U/L (17-59); African American GFR (CKD) 80 (>60 ml/min/1.73 sqM); Albumin 2.8 g/dL (3.5-5.0); Alkaline Phosphatase 164 U/L (38-126); Anion Gap 13 mmol/L; Blood Urea Nitrogen 47 mg/dL (9-20); Calcium 8.3 mg/dL (8.4-10.2); Carbon Dioxide 15 mmol/L (22-30); Chloride 103 mmol/L (98-107); Glucose 291 mg/dL (74-99); Non-African American GFR(CKD) 69 (>60 ml/min/1.73 sqM); Potassium 4.1 mmol/L (3.5-5.1); Sodium 131 mmol/L (137-145); Total Bilirubin 0.6 mg/dL (0.2-1.3); Total Protein 6.2 g/dL (6.3-8.2)
--- NOTE | 2023-08-25 18:00 | XR ---
EXAMINATION TYPE: XR foot complete LT DATE OF EXAM: 08/25/2023 5:34 PM CLINICAL INDICATION:Male, 52 years old with history of r/o osteo; [facility] COMPARISON: 05/14/2023. TECHNIQUE: XR foot complete LT examined in the AP, oblique, and lateral projections. FINDINGS/IMPRESSION: Diffuse swelling of the foot with collapse of the arch of the foot with subcutaneous gas throughout t he foot. Findings concerning for cellulitis with underlying abscess not entirely excluded. Multiple u lcers are seen along the plantar surface of the foot. Consider MRI for further evaluation of osteomye litis. No osseous erosion definitively visualized.
[2023-08-25] MEDS ORDERED: VANCOMYCIN IV PER PHARMACY 1 EACH MISC MISCELLANE PRN (18:30)
[2023-08-25] MEDS ORDERED: ONDANSETRON 4 MG/2 ML VIAL IVP PRN (18:37)
[2023-08-25] MEDS ORDERED: NALOXONE 0.4 MG/ML 1 ML VIAL IV PRN (18:37)
[2023-08-25] MEDS: PIPERACILLIN-TAZOBACTAM 3.375 GM in SODIUM CHLORIDE 0.9% 100 ML IVPB STA (18:39)
[2023-08-25] MEDS ORDERED: DEXTROSE 50% SYRINGE 50 ML IVP PRN ×2 (18:40)
[2023-08-25 19:54] LABS: Partial Thromboplastin Time 25.1 sec (22.0-30.0); Prothrombin Time 10.8 sec (10.0-12.5)
[2023-08-25] MEDS: SODIUM CHLORIDE 0.9% 1,000 ML IV STA (19:56)
[2023-08-25] MEDS: LORazepam 2 MG/ML INJ IV STA (20:39)
[2023-08-25] MEDS: VANCOMYCIN 1,500 MG in SODIUM CHLORIDE 0.9% 500 ML 500 ML IVPB ONE (20:40)
[2023-08-25 21:04] LABS: Glucose,Whole Blood 277 mg/dL (70-110)
[2023-08-25] MEDS: INSULIN ASPART (NovoLOG) 100 UNIT/ML VIAL SQ SCH (21:10)
[2023-08-25] MEDS: HYDROcodone/APAP 7.5-325MG 1 EACH TAB PO SCH (21:38)
[2023-08-25] MEDS: FAMOTIDINE 20 MG TAB PO SCH (21:38)
[2023-08-25] MEDS: PREGABALIN 100 MG CAP PO SCH (21:38)
--- NOTE | 2023-08-25 21:40 | XR ---
EXAMINATION TYPE: XR chest 2V DATE OF EXAM: 08/25/2023 8:59 PM CLINICAL INDICATION:Male, 52 years old with history of presurgical xr; [facility] COMPARISON: None TECHNIQUE: XR chest 2V Frontal and lateral views of the chest. FINDINGS: Lungs/Pleura: There is no evidence of pleural effusion, focal consolidation, or pneumothorax. Pulmonary vascularity: Unremarkable. Heart/mediastinum: Cardiomediastinal silhouette is unremarkable. Musculoskeletal: No acute osseous pathology. IMPRESSION: Low lung volumes with a generalized hazy appearance which could represent atelectasis versus pulmonar y edema correlate with serum BNP.
[2023-08-25] MEDS: IPRATROPIUM-ALBUTEROL 3 ML NEB INHALATION SCH (21:48)
[2023-08-26] MEDS: SODIUM CHLORIDE 0.9% 500 ML 500 ML IV STA (00:26)
[2023-08-26 01:10] LABS: Glucose,Whole Blood 244 mg/dL (70-110)
[2023-08-26] MEDS: PIPERACILLIN-TAZOBACTAM 3.375 GM in SODIUM CHLORIDE 0.9% 100 ML IVPB SCH (02:42)
[2023-08-26 03:52] LABS: Glucose,Whole Blood 191 mg/dL (70-110)
[2023-08-26 04:23] LABS: African American GFR (CKD) >90 (>60 ml/min/1.73 sqM); Non-African American GFR(CKD) 80 (>60 ml/min/1.73 sqM)
[2023-08-26 05:42] LABS: Glucose,Whole Blood 145 mg/dL (70-110)
[2023-08-26 08:06] LABS: Glucose,Whole Blood 148 mg/dL (70-110)
[2023-08-26] MEDS: MULTIVITAMINS, THERA 1 EACH TAB PO SCH (08:20)
[2023-08-26] MEDS: lisinopriL 20 MG TAB PO SCH (08:20)
[2023-08-26] MEDS: FUROSEMIDE 40 MG TAB PO SCH (08:21)
[2023-08-26] MEDS: ATORVASTATIN 10 MG TAB PO SCH (08:21)
[2023-08-26] MEDS: LINAGLIPTIN 5 MG TABLET PO SCH (08:23)
[2023-08-26] MEDS: DAPAGLIFLOZIN PROPANEDIOL 10 MG TABLET PO SCH (08:23)
[2023-08-26 08:39] LABS: Basophils # (A) 0.04 X 10*3/uL (0.00-0.10); Basophils % (A) 0.3 %; Eosinophils # (A) 0.04 X 10*3/uL (0.04-0.35); Eosinophils % (A) 0.3 %; HGB 11.9 g/dL (13.0-17.0); Lymphocytes % (A) 4.8 %; MCH 30.5 pg (27.0-32.0); MCHC 32.2 g/dL (32.0-37.0); MCV 94.9 FL (80.0-97.0); Mean Platelet Volume 11.2 FL (9.5-12.2); Monocytes # (A) 1.19 X 10*3/uL (0.20-1.00); Monocytes % (A) 8.2 %; NRBC Per 100 WBC 0 X 10*3/uL (0.00-0.01); Neutrophils % (A) 85.1 %; Platelet Count 259 X 10*3/uL (140-440); RDW 14.6 % (11.5-14.5); WBC 14.56 X 10*3/uL (4.50-10.00)
[2023-08-26] MEDS: VANCOMYCIN 1,500 MG in SODIUM CHLORIDE 0.9% 500 ML 500 ML IVPB SCH (08:39)
[2023-08-26 09:05] LABS: ALT 95 U/L (10-49); AST 136 U/L (14-35); Albumin 2.6 g/dL (3.8-4.9); Alkaline Phosphatase 139 U/L (41-126); BUN/Creat Ratio 34.08 Ratio (12.00-20.00); Blood Urea Nitrogen 40.9 mg/dL (9.0-27.0); Calcium 8.1 mg/dL (8.7-10.3); Chloride 104 mmol/L (96-109); Globulin 2.9 g/dL (1.6-3.3); Glucose 185 mg/dL (70-110); Potassium 3.9 mmol/L (3.5-5.5); Sodium 133 mmol/L (135-145); Total Bilirubin 0.3 mg/dL (0.3-1.2); Total Protein 5.5 g/dL (6.2-8.2)
--- NOTE | 2023-08-26 09:09 | US ---
EXAMINATION TYPE: US liver DATE OF EXAM: 08/26/2023 COMPARISON: US 02/06/2023 US 10/02/2022 CLINICAL INDICATION: Male, 52 years old with history of elevated liver enzymes; Patient denies any si gns or symptoms at this time TECHNIQUE: Multiple sonographic images of the right upper quadrant are obtained. FINDINGS: EXAM MEASUREMENTS: Liver Length: 14.5 cm Gallbladder Wall: 0.3 cm CBD: 0.2 cm Right Kidney: 11.8 x 5.6 x 6.6 cm EDUCATION NURSE NOTES: Pancreas: Obscured by bowel gas Liver: Normal in size but slightly coarsened echo pattern. Gallbladder: Non-distended; patient is properly NPO Evidence for sonographic Hi's sign: No CBD: wnl Right Kidney: wnl IMPRESSION: Slightly coarsened echo pattern to the liver is nonspecific and be seen with hepatic stenosis or unde rlying hepatocellular disease.
--- NOTE | 2023-08-26 12:04 | P.CONS ---
History of Present Illness - Reason for Consult Consult date: 08/26/23 wound care - History of Present Illness This is a 52-year-old patient known to the wound care center with nonhealing ulceration to the left plantar foot with multiple open areas. Patient has been seen weekly in the wound care center with a poor prognosis. Discussed with patient on multiple occasions that the likelihood of healing the ulcerations is poor. Discussed the possibility of vascular surgery intervention with possible amputation. At this time patient is adamant that he does not want to follow through with any form of amputation he wants to keep his foot. Patient has a new ulceration to the left Achilles that was not present last week. Area has no granulation with eschar and nonviable tissue present. The plantar foot ulceration has significant amount of slough minimal to no granulation able to palpate bone. Patient has history of Charcot foot and diabetes. Review Of Systems: Constitutional: No fever, no chills, no night sweats. No weight change. No weakness, fatigue or lethargy. No daytime sleepiness. Integumentary:reports wounds, no lesions. No rash or pruritus. No unusual bruising. No change in hair or nails. Physical exam: General Appearance: Alert, cooperative, no distress, appears stated age. Skin: See HPI all other Skin color, texture, tugor normal, no rashes or lesions. Neurologic: Alert oriented x3 Assessment: 1. Nonpressure ulceration of other part of left foot with bone necrosis 2. Nonpressure ulceration of other part of left ankle with muscle necrosis 3. Charcot foot 4. Diabetic foot ulceration Plan: 1. Awaiting recommendations of vascular surgery. Continue with absorptive silver to the site. We will continue to see the patient upon discharge. Thank you for the consultation any questions please contact the wound care center DNP note has been reviewed and discussed with Dr. Vizcaino and the impression and plan of care has been directed as dictated. Past Medical History Past Medical History: Diabetes Mellitus, Hyperlipidemia, Hypertension Additional Past Medical History / Comment(s): STATES SORE ON THE BOTTOM OF LEFT FOOT. 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 Past Psychological History: Anxiety Smoking Status: Former smoker Past Alcohol Use History: Occasional Additional Past Alcohol Use History / Comment(s): HX OF 1/2 PPD SMOKER. Past Drug Use History: None Reported - Past Family History Mother Family Medical History: Diabetes Mellitus Father Family Medical History: Cancer Medications and Allergies Home Medications Medication Instructions Recorded Confirmed Type Empagliflozin [Jardiance] 25 mg PO DAILY 11/09/21 08/25/23 History HYDROcodone/APAP 7.5-325MG [Marion 1 tab PO TID 11/09/21 08/25/23 History 7.5-325] Simvastatin [Zocor] 20 mg PO DAILY 11/09/21 08/25/23 History sitaGLIPtin [Januvia] 100 mg PO DAILY 11/09/21 08/25/23 History Famotidine 20 mg PO BID 07/01/22 08/25/23 History Sevelamer [Renvela] 800 mg PO W/SUPPER 07/01/22 08/25/23 History Ergocalciferol [Vitamin D2 (1250 1,250 mcg PO MO 10/01/22 08/25/23 History Mcg = 50164 Iu)] metFORMIN HCL 1,000 mg PO BID 10/01/22 08/25/23 History Terbinafine [LamISIL] 250 mg PO DAILY 02/05/23 08/25/23 History Furosemide [Lasix] 40 mg PO DAILY 05/14/23 08/25/23 History Multivitamins, Thera [Multivitamin 1 tab PO DAILY 05/14/23 08/25/23 History (formulary)] Pregabalin [Lyrica] 200 mg PO TID 05/14/23 08/25/23 History lisinopriL [Zestril] 20 mg PO DAILY 05/14/23 08/25/23 History Ipratropium-Albuterol Nebulize 3 ml INHALATION RT-QID 90 Days 05/23/23 08/25/23 Rx [Duoneb 0.5 mg-3 mg/3 ml Soln] #360 each Allergies Allergy/AdvReac Type Severity Reaction Status Date / Time No Known Allergies Allergy Verified 08/25/23 18:14 Physical Exam Vitals: Vital Signs Temp Pulse Pulse Resp BP BP Pulse Ox 08/26/23 08:20 102 H 08/26/23 07:12 98.3 F 102 H 17 102/57 95 08/26/23 00:10 99.6 F 105 H 20 108/61 93 L 08/25/23 22:27 97.8 F 110 H 16 119/56 96 08/25/23 18:23 98.6 F 101 H 08/25/23 16:03 99.4 F 111 H 20 95/54 95 Intake and Output 08/25/23 08/26/23 08/26/23 22:59 06:59 14:59 Other: # Voids 1 1 Weight 97.976 kg 97.976 kg Results CBC & Chem 7: 08/26/23 03:48 08/26/23 03:48 Labs: Abnormal Lab Results - Last 24 Hours (Table) 08/25/23 08/25/23 08/25/23 Range/Units 17:29 17:29 21:02 WBC 17.1 H (3.8-10.6) k/uL RBC 3.97 L (4.30-5.90) m/uL Hgb 12.1 L (13.0-17.5) gm/dL Hct 38.7 L (39.0-53.0) % RDW (11.5-14.5) % Immature Gran # (0.00-0.04) X 10*3/uL Neutrophils # 15.7 H (1.3-7.7) k/uL Lymphocytes # 0.4 L (1.0-4.8) k/uL Monocytes # (0.20-1.00) X 10*3/uL Sodium 131 L (137-145) mmol/L Carbon Dioxide 15 L (22-30) mmol/L BUN 47 H (9-20) mg/dL BUN/Creatinine Ratio (12.00-20.00) Ratio Glucose 291 H (74-99) mg/dL POC Glucose (mg/dL) 277 H (70-110) mg/dL Hemoglobin A1c (<=6.0) % Calcium 8.3 L (8.4-10.2) mg/dL AST 118 H (17-59) U/L ALT 85 H (4-49) U/L Alkaline Phosphatase 164 H (38-126) U/L Total Protein 6.2 L (6.3-8.2) g/dL Albumin 2.8 L (3.5-5.0) g/dL Albumin/Globulin Ratio (1.60-3.17) Ratio 08/26/23 08/26/23 08/26/23 Range/Units 01:08 03:48 03:48 WBC 14.56 H (3.8-10.6) k/uL RBC 3.90 L (4.30-5.90) m/uL Hgb 11.9 L (13.0-17.5) gm/dL Hct 37.0 L (39.0-53.0) % RDW 14.6 H (11.5-14.5) % Immature Gran # 0.19 H (0.00-0.04) X 10*3/uL Neutrophils # 12.40 H (1.3-7.7) k/uL Lymphocytes # 0.70 L (1.0-4.8) k/uL Monocytes # 1.19 H (0.20-1.00) X 10*3/uL Sodium (137-145) mmol/L Carbon Dioxide (22-30) mmol/L BUN (9-20) mg/dL BUN/Creatinine Ratio (12.00-20.00) Ratio Glucose (74-99) mg/dL POC Glucose (mg/dL) 244 H (70-110) mg/dL Hemoglobin A1c 7.1 H (<=6.0) % Calcium (8.4-10.2) mg/dL AST (17-59) U/L ALT (4-49) U/L Alkaline Phosphatase (38-126) U/L Total Protein (6.3-8.2) g/dL Albumin (3.5-5.0) g/dL Albumin/Globulin Ratio (1.60-3.17) Ratio 08/26/23 08/26/23 08/26/23 Range/Units 03:48 03:51 05:40 WBC (3.8-10.6) k/uL RBC (4.30-5.90) m/uL Hgb (13.0-17.5) gm/dL Hct (39.0-53.0) % RDW (11.5-14.5) % Immature Gran # (0.00-0.04) X 10*3/uL Neutrophils # (1.3-7.7) k/uL Lymphocytes # (1.0-4.8) k/uL Monocytes # (0.20-1.00) X 10*3/uL Sodium 133 L (137-145) mmol/L Carbon Dioxide 20.0 L (22-30) mmol/L BUN 40.9 H (9-20) mg/dL BUN/Creatinine Ratio 34.08 H (12.00-20.00) Ratio Glucose 185 H (74-99) mg/dL POC Glucose (mg/dL) 191 H 145 H (70-110) mg/dL Hemoglobin A1c (<=6.0) % Calcium 8.1 L (8.4-10.2) mg/dL AST 136 H (17-59) U/L ALT 95 H (4-49) U/L Alkaline Phosphatase 139 H (38-126) U/L Total Protein 5.5 L (6.3-8.2) g/dL Albumin 2.6 L (3.5-5.0) g/dL Albumin/Globulin Ratio 0.90 L (1.60-3.17) Ratio 08/26/23 Range/Units 08:05 WBC (3.8-10.6) k/uL RBC (4.30-5.90) m/uL Hgb (13.0-17.5) gm/dL Hct (39.0-53.0) % RDW (11.5-14.5) % Immature Gran # (0.00-0.04) X 10*3/uL Neutrophils # (1.3-7.7) k/uL Lymphocytes # (1.0-4.8) k/uL Monocytes # (0.20-1.00) X 10*3/uL Sodium (137-145) mmol/L Carbon Dioxide (22-30) mmol/L BUN (9-20) mg/dL BUN/Creatinine Ratio (12.00-20.00) Ratio Glucose (74-99) mg/dL POC Glucose (mg/dL) 148 H (70-110) mg/dL Hemoglobin A1c (<=6.0) % Calcium (8.4-10.2) mg/dL AST (17-59) U/L ALT (4-49) U/L Alkaline Phosphatase (38-126) U/L Total Protein (6.3-8.2) g/dL Albumin (3.5-5.0) g/dL Albumin/Globulin Ratio (1.60-3.17) Ratio Microbiology - Last 24 Hours (Table) 08/25/23 16:14 Gram Stain - Preliminary Foot - Left Assessment and Plan (1) Non-pressure chronic ulcer of left ankle with necrosis of muscle Current Visit: Yes Status: Acute Code(s): L97.323 - NON-PRS CHRONIC ULCER OF LEFT ANKLE W NECROSIS OF MUSCLE SNOMED Code(s): 16467747830931326 (2) Non-pressure chronic ulcer of other 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
[2023-08-26 12:13] LABS: Glucose,Whole Blood 278 mg/dL (70-110)
--- NOTE | 2023-08-26 13:17 | P.GSCN ---
History of Present Illness Consult date: 08/26/23 Reason for Consult: Foot infection Requesting physician: Karsten Christina History of present illness: This is a 52-year-old male patient who presented to the emergency department with concerns for infection to the left foot. Past medical history includes chronic nonhealing wounds, diabetes mellitus, hyperlipidemia and hypertension. He has a long history of chronic wounds to the left foot and has been following with wound care at [facility]. She has been seen in the past by vascular surgery and it was recommended at that time to have excisional debridement but patient would likely need left below the knee amputation. Patient had refused any surgical debridement during that last visit and a PICC line was placed and he continued IV antibiotics. He presents back with a healing wound to the plantar aspect of his foot and he states a new wound to the plantar aspect of his foot and to the medial aspect of ankle as well as a large fluctuance to the lateral aspect of the left foot. He denies any fevers or chills. No nausea or vomiting. He was started on IV antibiotics. He denies any significant pain to the left foot. Review of Systems A 14 point review systems was completed all pertinent positives and negatives as stated in the HPI. Past Medical History Past Medical History: Diabetes Mellitus, Hyperlipidemia, Hypertension Additional Past Medical History / Comment(s): STATES SORE ON THE BOTTOM OF LEFT FOOT. 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 Past Psychological History: Anxiety Smoking Status: Former smoker Past Alcohol Use History: Occasional Additional Past Alcohol Use History / Comment(s): HX OF 1/2 PPD SMOKER. Past Drug Use History: None Reported - Past Family History Mother Family Medical History: Diabetes Mellitus Father Family Medical History: Cancer Medications and Allergies Home Medications Medication Instructions Recorded Confirmed Type Empagliflozin [Jardiance] 25 mg PO DAILY 11/09/21 08/25/23 History HYDROcodone/APAP 7.5-325MG [Kennard 1 tab PO TID 11/09/21 08/25/23 History 7.5-325] Simvastatin [Zocor] 20 mg PO DAILY 11/09/21 08/25/23 History sitaGLIPtin [Januvia] 100 mg PO DAILY 11/09/21 08/25/23 History Famotidine 20 mg PO BID 07/01/22 08/25/23 History Sevelamer [Renvela] 800 mg PO W/SUPPER 07/01/22 08/25/23 History Ergocalciferol [Vitamin D2 (1250 1,250 mcg PO MO 10/01/22 08/25/23 History Mcg = 74287 Iu)] metFORMIN HCL 1,000 mg PO BID 10/01/22 08/25/23 History Terbinafine [LamISIL] 250 mg PO DAILY 02/05/23 08/25/23 History Furosemide [Lasix] 40 mg PO DAILY 05/14/23 08/25/23 History Multivitamins, Thera [Multivitamin 1 tab PO DAILY 05/14/23 08/25/23 History (formulary)] Pregabalin [Lyrica] 200 mg PO TID 05/14/23 08/25/23 History lisinopriL [Zestril] 20 mg PO DAILY 05/14/23 08/25/23 History Ipratropium-Albuterol Nebulize 3 ml INHALATION RT-QID 90 Days 05/23/23 08/25/23 Rx [Duoneb 0.5 mg-3 mg/3 ml Soln] #360 each Allergies Allergy/AdvReac Type Severity Reaction Status Date / Time No Known Allergies Allergy Verified 08/25/23 18:14 Surgical - Exam Vital Signs Temp Pulse Resp BP Pulse Ox 99.4 F 111 H 20 95/54 95 08/25/23 16:03 08/25/23 16:03 08/25/23 16:03 08/25/23 16:03 08/25/23 16:03 General appearance: The patient is alert, oriented, appears in no acute distress. HET: Head is normocephalic and atraumatic. Pupils are equal and reactive. Neck: Supple. Heart: Regular. Lungs: Equal expansion, normal respiratory effort. Abdomen: Soft, nontender, nondistended. Extremities: Bilateral femoral pulses. Right foot with DP and PT signal. Left lower extremity swelling, with venous stasis and dermatitis. Large diabetic wound to the medial ankle with nonviable tissue, lateral aspect of left foot with large area of fluctuance with bloody appearing fluid. There are 2 wounds to the plantar aspect of his foot. The 1 more proximal to heal is healing of the other is open with drainage. Patient with rocker bottom foot, with swelling and erythema. Neurological: No focal deficits. Alert and oriented x 3. Results - Labs 08/26/23 03:48 08/26/23 03:48 Abnormal Lab Results - Last 24 Hours (Table) 08/25/23 08/25/23 08/25/23 Range/Units 17:29 17:29 21:02 WBC 17.1 H (3.8-10.6) k/uL RBC 3.97 L (4.30-5.90) m/uL Hgb 12.1 L (13.0-17.5) gm/dL Hct 38.7 L (39.0-53.0) % RDW (11.5-14.5) % Immature Gran # (0.00-0.04) X 10*3/uL Neutrophils # 15.7 H (1.3-7.7) k/uL Lymphocytes # 0.4 L (1.0-4.8) k/uL Monocytes # (0.20-1.00) X 10*3/uL Sodium 131 L (137-145) mmol/L Carbon Dioxide 15 L (22-30) mmol/L BUN 47 H (9-20) mg/dL BUN/Creatinine Ratio (12.00-20.00) Ratio Glucose 291 H (74-99) mg/dL POC Glucose (mg/dL) 277 H (70-110) mg/dL Hemoglobin A1c (<=6.0) % Calcium 8.3 L (8.4-10.2) mg/dL AST 118 H (17-59) U/L ALT 85 H (4-49) U/L Alkaline Phosphatase 164 H (38-126) U/L Total Protein 6.2 L (6.3-8.2) g/dL Albumin 2.8 L (3.5-5.0) g/dL Albumin/Globulin Ratio (1.60-3.17) Ratio 08/26/23 08/26/23 08/26/23 Range/Units 01:08 03:48 03:48 WBC 14.56 H (3.8-10.6) k/uL RBC 3.90 L (4.30-5.90) m/uL Hgb 11.9 L (13.0-17.5) gm/dL Hct 37.0 L (39.0-53.0) % RDW 14.6 H (11.5-14.5) % Immature Gran # 0.19 H (0.00-0.04) X 10*3/uL Neutrophils # 12.40 H (1.3-7.7) k/uL Lymphocytes # 0.70 L (1.0-4.8) k/uL Monocytes # 1.19 H (0.20-1.00) X 10*3/uL Sodium (137-145) mmol/L Carbon Dioxide (22-30) mmol/L BUN (9-20) mg/dL BUN/Creatinine Ratio (12.00-20.00) Ratio Glucose (74-99) mg/dL POC Glucose (mg/dL) 244 H (70-110) mg/dL Hemoglobin A1c 7.1 H (<=6.0) % Calcium (8.4-10.2) mg/dL AST (17-59) U/L ALT (4-49) U/L Alkaline Phosphatase (38-126) U/L Total Protein (6.3-8.2) g/dL Albumin (3.5-5.0) g/dL Albumin/Globulin Ratio (1.60-3.17) Ratio 08/26/23 08/26/23 08/26/23 Range/Units 03:48 03:51 05:40 WBC (3.8-10.6) k/uL RBC (4.30-5.90) m/uL Hgb (13.0-17.5) gm/dL Hct (39.0-53.0) % RDW (11.5-14.5) % Immature Gran # (0.00-0.04) X 10*3/uL Neutrophils # (1.3-7.7) k/uL Lymphocytes # (1.0-4.8) k/uL Monocytes # (0.20-1.00) X 10*3/uL Sodium 133 L (137-145) mmol/L Carbon Dioxide 20.0 L (22-30) mmol/L BUN 40.9 H (9-20) mg/dL BUN/Creatinine Ratio 34.08 H (12.00-20.00) Ratio Glucose 185 H (74-99) mg/dL POC Glucose (mg/dL) 191 H 145 H (70-110) mg/dL Hemoglobin A1c (<=6.0) % Calcium 8.1 L (8.4-10.2) mg/dL AST 136 H (17-59) U/L ALT 95 H (4-49) U/L Alkaline Phosphatase 139 H (38-126) U/L Total Protein 5.5 L (6.3-8.2) g/dL Albumin 2.6 L (3.5-5.0) g/dL Albumin/Globulin Ratio 0.90 L (1.60-3.17) Ratio 08/26/23 Range/Units 08:05 WBC (3.8-10.6) k/uL RBC (4.30-5.90) m/uL Hgb (13.0-17.5) gm/dL Hct (39.0-53.0) % RDW (11.5-14.5) % Immature Gran # (0.00-0.04) X 10*3/uL Neutrophils # (1.3-7.7) k/uL Lymphocytes # (1.0-4.8) k/uL Monocytes # (0.20-1.00) X 10*3/uL Sodium (137-145) mmol/L Carbon Dioxide (22-30) mmol/L BUN (9-20) mg/dL BUN/Creatinine Ratio (12.00-20.00) Ratio Glucose (74-99) mg/dL POC Glucose (mg/dL) 148 H (70-110) mg/dL Hemoglobin A1c (<=6.0) % Calcium (8.4-10.2) mg/dL AST (17-59) U/L ALT (4-49) U/L Alkaline Phosphatase (38-126) U/L Total Protein (6.3-8.2) g/dL Albumin (3.5-5.0) g/dL Albumin/Globulin Ratio (1.60-3.17) Ratio Microbiology - Last 24 Hours (Table) 08/25/23 16:14 Gram Stain - Preliminary Foot - Left Diabetes panel 08/25/23 08/26/23 08/26/23 Range/Units 17: 03:48 03:48 Sodium 131 L 133 L (137-145) mmol/L Potassium 4.1 3.9 (3.5-5.1) mmol/L Chloride 103 104 (98-107) mmol/L Carbon Dioxide 15 L 20.0 L (22-30) mmol/L BUN 47 H 40.9 H (9-20) mg/dL Creatinine 1.19 1.2 (0.66-1.25) mg/dL Glucose 291 H 185 H (74-99) mg/dL Hemoglobin A1c 7.1 H (<=6.0) % Calcium 8.3 L 8.1 L (8.4-10.2) mg/dL AST 118 H 136 H (17-59) U/L ALT 85 H 95 H (4-49) U/L Alkaline Phosphatase 164 H 139 H (38-126) U/L Total Protein 6.2 L 5.5 L (6.3-8.2) g/dL Albumin 2.8 L 2.6 L (3.5-5.0) g/dL 08/26/23 Range/Units 03:48 Sodium (137-145) mmol/L Potassium (3.5-5.1) mmol/L Chloride (98-107) mmol/L Carbon Dioxide (22-30) mmol/L BUN (9-20) mg/dL Creatinine 1.06 (0.66-1.25) mg/dL Glucose (74-99) mg/dL Hemoglobin A1c (<=6.0) % Calcium (8.4-10.2) mg/dL AST (17-59) U/L ALT (4-49) U/L Alkaline Phosphatase (38-126) U/L Total Protein (6.3-8.2) g/dL Albumin (3.5-5.0) g/dL Calcium panel 08/25/23 08/26/23 Range/Units 17: 03:48 Calcium 8.3 L 8.1 L (8.4-10.2) mg/dL Albumin 2.8 L 2.6 L (3.5-5.0) g/dL Pituitary panel 08/25/23 08/26/23 08/26/23 Range/Units 17: 03:48 03:48 Sodium 131 L 133 L (137-145) mmol/L Potassium 4.1 3.9 (3.5-5.1) mmol/L Chloride 103 104 (98-107) mmol/L Carbon Dioxide 15 L 20.0 L (22-30) mmol/L BUN 47 H 40.9 H (9-20) mg/dL Creatinine 1.19 1.2 1.06 (0.66-1.25) mg/dL Glucose 291 H 185 H (74-99) mg/dL Calcium 8.3 L 8.1 L (8.4-10.2) mg/dL Adrenal panel 08/25/23 08/26/23 08/26/23 Range/Units 17:29 03:48 03:48 Sodium 131 L 133 L (137-145) mmol/L Potassium 4.1 3.9 (3.5-5.1) mmol/L Chloride 103 104 (98-107) mmol/L Carbon Dioxide 15 L 20.0 L (22-30) mmol/L BUN 47 H 40.9 H (9-20) mg/dL Creatinine 1.19 1.2 1.06 (0.66-1.25) mg/dL Glucose 291 H 185 H (74-99) mg/dL Calcium 8.3 L 8.1 L (8.4-10.2) mg/dL Total Bilirubin 0.6 0.3 (0.2-1.3) mg/dL AST 118 H 136 H (17-59) U/L ALT 85 H 95 H (4-49) U/L Alkaline Phosphatase 164 H 139 H (38-126) U/L Total Protein 6.2 L 5.5 L (6.3-8.2) g/dL Albumin 2.8 L 2.6 L (3.5-5.0) g/dL - Imaging Comments: Left foot x-ray independently reviewed by Dr. Lorenzo showing gas and air. Ports states diffuse swelling of the foot with collapse of the arch of the foot with subcutaneous gas throughout the foot. Findings concerning for cellulitis with underlying abscess not entirely excluded. Multiple ulcers are seen along the plantar surface of the foot. Consider MRI for further evaluation of osteomyelitis. No osseous erosion definitively visualized. Assessment and Plan Assessment: 1. Left foot with multiple chronic infected diabetic wounds with air/gas seen on x-ray 2. Diabetes mellitus 3. Mildly elevated LFTs 4. Hypertension 5. Hyperlipidemia Plan: Discussed with patient after reviewing x-rays, that the extent of the wounds and evidence of gas formation concerning deep infection and within the bone and likely will not heal due to the extent of the infection. Vascular surgery as recommending below the knee amputation. Patient is declining any below the knee amputation. Surgical debridement discussed with patient as not being of any benefit which he declined anyway.. Discussed with patient that there is possibility that the infection could continuing travel up his leg and eventually cause . He verbalized understanding. Will consult wound care who he has been following with and he can continue local wound care. Continue with recommendations from infectious disease. The rest of medical management per primary medical team. Thank you for this consultation, we will sign off at this time. The impression and plan of care has been dictated as directed. I performed a history and examination of this patient, discussed the same with the dictator. I agree with the dictator's note ,documented as a scribe. Any additional findings or plans will be noted.
[2023-08-26 15:38] LABS: Hepatitis A Antibody IgM Nonreactive (Nonreactive); Hepatitis B Core IgM Nonreactive (Nonreactive); Hepatitis B Surface Antigen Nonreactive (Nonreactive); Hepatitis C IgG Antibody Nonreactive (Nonreactive)
[2023-08-26] MEDS: metroNIDAZOLE 500 MG TAB PO SCH (15:49)
[2023-08-26] MEDS: ALPRAZolam 0.25 MG TAB PO PRN (15:49)
[2023-08-26] MEDS: CEFEPIME 2 GM in SODIUM CHLORIDE 0.9% 100 ML IVPB SCH (15:49)
[2023-08-26 16:15] LABS: Glucose,Whole Blood 409 mg/dL (70-110)
--- NOTE | 2023-08-26 16:21 | P.CONS ---
History of Present Illness - Reason for Consult Consult date: 08/26/23 Elevated LFTs Requesting physician: [facility] - Chief Complaint foot wound - History of Present Illness 52-year-old male with a history of chronic left foot wounds who presented for concerns of infection and pain. He has a past medical history including diabetes mellitus, hyperlipidemia, hypertension and chronic left foot wounds. He was noted to have elevated LFTs on admission. Patient denies any previous known history of elevated LFTs or liver disease. Denies any previous history of alcohol abuse. He denies any abdominal pain, nausea or vomiting. WBC 14.5 hemoglobin 11.9 platelet count 259,000 total bilirubin 0.3 AST 136 ALT 95 alkaline phosphatase 139. Patient has been on long-term antibiotics for infection of the left foot and had had a previous PICC line. He states last antibiotic was about a month ago. He was started on vancomycin and Zosyn here yesterday. Review of Systems REVIEW OF SYSTEMS: CARDIOPULMONARY: No chest pain or shortness of breath. Gastrointestinal: Burning sensation in epigastric region, no associated abdominal pain. No nausea or vomiting. No hematemesis, coffee-ground emesis. No rectal bleeding, or melena. GENITOURINARY: No dysuria or hematuria. MUSCULOSKELETAL: Reports normal range of motion., Joint pain. SKIN: No rashes. No jaundice. ENDOCRINE: No chills, fevers. No excessive weight gain or loss. No polydipsia or polyuria. PSYCHIATRIC: Unremarkable. NEUROLOGY: No change in mental status. Denies dizziness, headache. ENT: Vision unremarkable. CONSTITUTIONAL: No recent weight loss. No fever, chills, night sweats. Past Medical History Past Medical History: Diabetes Mellitus, Hyperlipidemia, Hypertension Additional Past Medical History / Comment(s): STATES SORE ON THE BOTTOM OF LEFT FOOT. 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 Past Psychological History: Anxiety Smoking Status: Former smoker Past Alcohol Use History: Occasional Additional Past Alcohol Use History / Comment(s): HX OF 1/2 PPD SMOKER. Past Drug Use History: None Reported - Past Family History Mother Family Medical History: Diabetes Mellitus Father Family Medical History: Cancer Medications and Allergies Home Medications Medication Instructions Recorded Confirmed Type Empagliflozin [Jardiance] 25 mg PO DAILY 11/09/21 08/25/23 History HYDROcodone/APAP 7.5-325MG [Beltrami 1 tab PO TID 11/09/21 08/25/23 History 7.5-325] Simvastatin [Zocor] 20 mg PO DAILY 11/09/21 08/25/23 History sitaGLIPtin [Januvia] 100 mg PO DAILY 11/09/21 08/25/23 History Famotidine 20 mg PO BID 07/01/22 08/25/23 History Sevelamer [Renvela] 800 mg PO W/SUPPER 07/01/22 08/25/23 History Ergocalciferol [Vitamin D2 (1250 1,250 mcg PO MO 10/01/22 08/25/23 History Mcg = 85163 Iu)] metFORMIN HCL 1,000 mg PO BID 10/01/22 08/25/23 History Terbinafine [LamISIL] 250 mg PO DAILY 02/05/23 08/25/23 History Furosemide [Lasix] 40 mg PO DAILY 05/14/23 08/25/23 History Multivitamins, Thera [Multivitamin 1 tab PO DAILY 05/14/23 08/25/23 History (formulary)] Pregabalin [Lyrica] 200 mg PO TID 05/14/23 08/25/23 History lisinopriL [Zestril] 20 mg PO DAILY 05/14/23 08/25/23 History Ipratropium-Albuterol Nebulize 3 ml INHALATION RT-QID 90 Days 05/23/23 08/25/23 Rx [Duoneb 0.5 mg-3 mg/3 ml Soln] #360 each Allergies Allergy/AdvReac Type Severity Reaction Status Date / Time No Known Allergies Allergy Verified 08/25/23 18:14 Physical Exam Vitals: Vital Signs Temp Pulse Pulse Resp BP BP Pulse Ox 08/26/23 07:12 98.3 F 102 H 17 102/57 95 08/26/23 00:10 99.6 F 105 H 20 108/61 93 L 08/25/23 22:27 97.8 F 110 H 16 119/56 96 08/25/23 18:23 98.6 F 101 H 08/25/23 16:03 99.4 F 111 H 20 95/54 95 Intake and Output 08/25/23 08/26/23 08/26/23 22:59 06:59 14:59 Other: # Voids 1 Weight 97.976 kg 97.976 kg General appearance: The patient is alert, oriented, appears in no acute distress. HET: Head is normocephalic and atraumatic. Conjunctiva pink. Sclera anicteric. Neck: Supple without lymphadenopathy. Trachea midline. Heart: Regular. Lungs: Equal expansion, normal respiratory effort. Abdomen: Soft, nontender, nondistended. Skin: No rashes. No jaundice. Left lower extremity swelling with dressing in place. Extremities: Normal skin color and turgor. No pedal edema. Neurological: No focal deficits. Alert and oriented x3. Results CBC & Chem 7: 08/26/23 03:48 08/26/23 03:48 Labs: Abnormal Lab Results - Last 24 Hours (Table) 08/25/23 08/25/23 08/25/23 Range/Units 17:29 17:29 21:02 WBC 17.1 H (3.8-10.6) k/uL RBC 3.97 L (4.30-5.90) m/uL Hgb 12.1 L (13.0-17.5) gm/dL Hct 38.7 L (39.0-53.0) % RDW (11.5-14.5) % Immature Gran # (0.00-0.04) X 10*3/uL Neutrophils # 15.7 H (1.3-7.7) k/uL Lymphocytes # 0.4 L (1.0-4.8) k/uL Monocytes # (0.20-1.00) X 10*3/uL Sodium 131 L (137-145) mmol/L Carbon Dioxide 15 L (22-30) mmol/L BUN 47 H (9-20) mg/dL BUN/Creatinine Ratio (12.00-20.00) Ratio Glucose 291 H (74-99) mg/dL POC Glucose (mg/dL) 277 H (70-110) mg/dL Hemoglobin A1c (<=6.0) % Calcium 8.3 L (8.4-10.2) mg/dL AST 118 H (17-59) U/L ALT 85 H (4-49) U/L Alkaline Phosphatase 164 H (38-126) U/L Total Protein 6.2 L (6.3-8.2) g/dL Albumin 2.8 L (3.5-5.0) g/dL Albumin/Globulin Ratio (1.60-3.17) Ratio 08/26/23 08/26/23 08/26/23 Range/Units 01:08 03:48 03:48 WBC 14.56 H (3.8-10.6) k/uL RBC 3.90 L (4.30-5.90) m/uL Hgb 11.9 L (13.0-17.5) gm/dL Hct 37.0 L (39.0-53.0) % RDW 14.6 H (11.5-14.5) % Immature Gran # 0.19 H (0.00-0.04) X 10*3/uL Neutrophils # 12.40 H (1.3-7.7) k/uL Lymphocytes # 0.70 L (1.0-4.8) k/uL Monocytes # 1.19 H (0.20-1.00) X 10*3/uL Sodium (137-145) mmol/L Carbon Dioxide (22-30) mmol/L BUN (9-20) mg/dL BUN/Creatinine Ratio (12.00-20.00) Ratio Glucose (74-99) mg/dL POC Glucose (mg/dL) 244 H (70-110) mg/dL Hemoglobin A1c 7.1 H (<=6.0) % Calcium (8.4-10.2) mg/dL AST (17-59) U/L ALT (4-49) U/L Alkaline Phosphatase (38-126) U/L Total Protein (6.3-8.2) g/dL Albumin (3.5-5.0) g/dL Albumin/Globulin Ratio (1.60-3.17) Ratio 08/26/23 08/26/23 08/26/23 Range/Units 03:48 03:51 05:40 WBC (3.8-10.6) k/uL RBC (4.30-5.90) m/uL Hgb (13.0-17.5) gm/dL Hct (39.0-53.0) % RDW (11.5-14.5) % Immature Gran # (0.00-0.04) X 10*3/uL Neutrophils # (1.3-7.7) k/uL Lymphocytes # (1.0-4.8) k/uL Monocytes # (0.20-1.00) X 10*3/uL Sodium 133 L (137-145) mmol/L Carbon Dioxide 20.0 L (22-30) mmol/L BUN 40.9 H (9-20) mg/dL BUN/Creatinine Ratio 34.08 H (12.00-20.00) Ratio Glucose 185 H (74-99) mg/dL POC Glucose (mg/dL) 191 H 145 H (70-110) mg/dL Hemoglobin A1c (<=6.0) % Calcium 8.1 L (8.4-10.2) mg/dL AST 136 H (17-59) U/L ALT 95 H (4-49) U/L Alkaline Phosphatase 139 H (38-126) U/L Total Protein 5.5 L (6.3-8.2) g/dL Albumin 2.6 L (3.5-5.0) g/dL Albumin/Globulin Ratio 0.90 L (1.60-3.17) Ratio // Range/Units 08:05 WBC (3.8-10.6) k/uL RBC (4.30-5.90) m/uL Hgb (13.0-17.5) gm/dL Hct (39.0-53.0) % RDW (11.5-14.5) % Immature Gran # (0.00-0.04) X 10*3/uL Neutrophils # (1.3-7.7) k/uL Lymphocytes # (1.0-4.8) k/uL Monocytes # (0.20-1.00) X 10*3/uL Sodium (137-145) mmol/L Carbon Dioxide (22-30) mmol/L BUN (9-20) mg/dL BUN/Creatinine Ratio (12.00-20.00) Ratio Glucose (74-99) mg/dL POC Glucose (mg/dL) 148 H (70-110) mg/dL Hemoglobin A1c (<=6.0) % Calcium (8.4-10.2) mg/dL AST (17-59) U/L ALT (4-49) U/L Alkaline Phosphatase (38-126) U/L Total Protein (6.3-8.2) g/dL Albumin (3.5-5.0) g/dL Albumin/Globulin Ratio (1.60-3.17) Ratio Microbiology - Last 24 Hours (Table) 08/25/23 16:14 Gram Stain - Preliminary Foot - Left Comments: Liver ultrasound reports slightly coarsened echo pattern to the liver is nonspecific and can be seen with hepatic steatosis or underlying hepatocellular disease Assessment and Plan (1) Elevated LFTs Narrative/Plan: 52-year-old male with a history of diabetes mellitus and ongoing chronic wounds to the left foot that are nonhealing presenting for infected left foot wound. Patient has been on multiple antibiotics with PICC line with reported last antibiotic about a month ago. He was noted to have elevated LFTs on admission. No history of previous LFT elevation when trending labs. He denies previous history of underlying liver disease. And no history of alcoholism. Unclear etiology elevated LFTs may be secondary to diabetes mellitus and fatty liver disease. Liver ultrasound was ordered and does show echo coarse texture that can be seen in fatty liver underlying hepatocellular disease. Will obtain hepatitis panel. Avoid hepatotoxic medications. Will discontinue atorvastatin for now. Need to also consider possibe medication induced elevation secondary to recent antibiotic use. Current Visit: Yes Status: Acute Code(s): R79.89 - OTHER SPECIFIED ABNORMAL FINDINGS OF BLOOD CHEMISTRY SNOMED Code(s): 962225193 (2) Diabetes mellitus Current Visit: Yes Status: Acute Code(s): E11.9 - TYPE 2 DIABETES MELLITUS WITHOUT COMPLICATIONS SNOMED Code(s): 93411556 (3) Diabetic infection of left foot Current Visit: No Status: Acute Code(s): E11.628 - TYPE 2 DIABETES MELLITUS WITH OTHER SKIN COMPLICATIONS; L08.9 - LOCAL INFECTION OF THE SKIN AND SUBCUTANEOUS TISSUE, UNSP SNOMED Code(s): 67082572 Plan: 1. Continue symptomatic and supportive care 2. Diet as tolerated 3. Hepatitis panel ordered 4. Liver ultrasound ordered and reviewed 5. Avoid hepatotoxic medications 6. Patient will likely need outpatient follow-up with gastroenterology. No further workup planned at this time Thank you for this consultation, we will continue to follow. Dr. Marleen White I agree with the dictator's note, documented as a scribe by Zulema Bond.
[2023-08-26] MEDS: SEVELAMER 800 MG TAB PO SCH (17:03)
[2023-08-26 19:57] LABS: Glucose,Whole Blood 438 mg/dL (70-110)
--- NOTE | 2023-08-26 19:58 | P.CONS ---
History of Present Illness - Reason for Consult Consult date: 08/26/23 left foot infection Requesting physician: Karsten Christina - Chief Complaint Increasing swelling redness to the left foot x few days - History of Present Illness Patient is a 52-year-old male with a past medical history significant for diabetes mellitus hypertension hyperlipidemia and this patient who did have a history of left diabetic foot infection with an abscess s/p surgical drainage back in April 2023 with a culture grew MRSA Enterococcus faecalis and a naerobes for the patient has completed more than 8 weeks of IV antibiotic therapy and the patient was following at [facility] [place], patient has been brought into the hospital yesterday afternoon for evaluation of left foot wound apparently the patient noticed to have increasing pain swelling redness to the left foot area patient did have worsening swelling and redness and some foul-smelling drainage over the last few days has been complaining of pressure sensation to the left foot mild to moderate intensity also developed a wound on the medial aspect of the right ankle just above the medial malleolus patient denies high-grade fever or any chills he did have a low-grade fever of 99.4 on presentation to the hospital the patient was tachycardic but not hypotensive or hypoxic he did have white count 17.1 with a left shift creatinine is 1.19 liver enzymes mildly elevated hepatitis panel negative patient did have a foot x-ray diffuse swelling of the foot with collapse of the arch of the foot with subcutaneous gas throughout the foot finding concerning for cellulitis with underlying abscess not entirely excluded patient did have blood cultures drawn which are now growing Staph aureus and Proteus patient is currently on combination of vancomycin and Zosyn infectious was consulted for further management of antibiotic therapy Review of Systems Positive point and negatives has been mentioned in the HPI, complete review of systems was performed and all other systems are negative Past Medical History Past Medical History: Diabetes Mellitus, Hyperlipidemia, Hypertension Additional Past Medical History / Comment(s): STATES SORE ON THE BOTTOM OF LEFT FOOT. 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 Past Psychological History: Anxiety Smoking Status: Former smoker Past Alcohol Use History: Occasional Additional Past Alcohol Use History / Comment(s): HX OF 1/2 PPD SMOKER. Past Drug Use History: None Reported - Past Family History Mother Family Medical History: Diabetes Mellitus Father Family Medical History: Cancer Medications and Allergies Home Medications Medication Instructions Recorded Confirmed Type Empagliflozin [Jardiance] 25 mg PO DAILY 11/09/21 08/25/23 History HYDROcodone/APAP 7.5-325MG [Lamar 1 tab PO TID 11/09/21 08/25/23 History 7.5-325] Simvastatin [Zocor] 20 mg PO DAILY 11/09/21 08/25/23 History sitaGLIPtin [Januvia] 100 mg PO DAILY 11/09/21 08/25/23 History Famotidine 20 mg PO BID 07/01/22 08/25/23 History Sevelamer [Renvela] 800 mg PO W/SUPPER 07/01/22 08/25/23 History Ergocalciferol [Vitamin D2 (1250 1,250 mcg PO MO 10/01/22 08/25/23 History Mcg = 24212 Iu)] Furosemide [Lasix] 40 mg PO DAILY 05/14/23 08/25/23 History Multivitamins, Thera [Multivitamin 1 tab PO DAILY 05/14/23 08/25/23 History (formulary)] Pregabalin [Lyrica] 200 mg PO TID 05/14/23 08/25/23 History lisinopriL [Zestril] 20 mg PO DAILY 05/14/23 08/25/23 History Ipratropium-Albuterol Nebulize 3 ml INHALATION RT-QID 90 Days 05/23/23 08/25/23 Rx [Duoneb 0.5 mg-3 mg/3 ml Soln] #360 each ALPRAZolam [Xanax] 0.25 mg PO Q6HR PRN tab 09/05/23 Rx INSULIN ASPART (NovoLOG) [NovoLOG 20 unit SQ ACHS PRN each 09/05/23 Rx (formulary)] Insulin Detemir (Levemir) [Levemir] 20 unit SQ DAILY@0700 each 09/05/23 Rx Metoprolol Tartrate [Lopressor] 25 mg PO BID tab 09/05/23 Rx Pioglitazone [Actos] 30 mg PO DAILY tab 09/05/23 Rx Tamsulosin [Flomax] 0.4 mg PO DAILY cap 09/05/23 Rx Vancomycin 1,500 mg IVPB Q24HR #7 each 09/05/23 Rx cefTRIAXone [Rocephin] 2,000 mg IVP Q24HR #7 each 09/05/23 Rx Allergies Allergy/AdvReac Type Severity Reaction Status Date / Time No Known Allergies Allergy Verified 09/03/23 13:47 Physical Exam Vitals: Vital Signs Temp Pulse Pulse Resp BP BP Pulse Ox 08/26/23 08:20 102 H 08/26/23 07:12 98.3 F 102 H 17 102/57 95 08/26/23 00:10 99.6 F 105 H 20 108/61 93 L 08/25/23 22:27 97.8 F 110 H 16 119/56 96 08/25/23 18:23 98.6 F 101 H 08/25/23 16:03 99.4 F 111 H 20 95/54 95 Intake and Output 08/25/23 08/26/23 08/26/23 22:59 06:59 14:59 Other: # Voids 1 1 Weight 97.976 kg 97.976 kg GENERAL DESCRIPTION: Middle-aged male lying in bed, no distress. No tachypnea or accessory muscle of respiration use. HEENT: Shows Pallor , no scleral icterus. Oral mucous membrane is dry. No pharyngeal erythema or thrush NECK: Trachea central, no thyromegaly. LUNGS: Unlabored breathing. Clear to auscultation anteriorly. No wheeze or crackle. HEART: S1, S2, regular rate and rhythm. No loud murmur ABDOMEN: Soft, no tenderness , guarding or rigidity, no organomegaly EXTREMITIES: Left foot with significant swelling redness patient has developed wound on the medial as well as lateral aspect of his right ankle area with some necrotic tissue and drainage SKIN: No rash, no masses palpable. NEUROLOGICAL: The patient is awake, alert, oriented x3, mood and affect normal. Results CBC & Chem 7: 09/04/23 11:45 09/06/23 06:28 Labs: Abnormal Lab Results - Last 24 Hours (Table) 08/25/23 08/25/23 08/25/23 Range/Units 17:29 17:29 21:02 WBC 17.1 H (3.8-10.6) k/uL RBC 3.97 L (4.30-5.90) m/uL Hgb 12.1 L (13.0-17.5) gm/dL Hct 38.7 L (39.0-53.0) % RDW (11.5-14.5) % Immature Gran # (0.00-0.04) X 10*3/uL Neutrophils # 15.7 H (1.3-7.7) k/uL Lymphocytes # 0.4 L (1.0-4.8) k/uL Monocytes # (0.20-1.00) X 10*3/uL Sodium 131 L (137-145) mmol/L Carbon Dioxide 15 L (22-30) mmol/L BUN 47 H (9-20) mg/dL BUN/Creatinine Ratio (12.00-20.00) Ratio Glucose 291 H (74-99) mg/dL POC Glucose (mg/dL) 277 H (70-110) mg/dL Hemoglobin A1c (<=6.0) % Calcium 8.3 L (8.4-10.2) mg/dL AST 118 H (17-59) U/L ALT 85 H (4-49) U/L Alkaline Phosphatase 164 H (38-126) U/L Total Protein 6.2 L (6.3-8.2) g/dL Albumin 2.8 L (3.5-5.0) g/dL Albumin/Globulin Ratio (1.60-3.17) Ratio 08/26/23 08/26/23 08/26/23 Range/Units 01:08 03:48 03:48 WBC 14.56 H (3.8-10.6) k/uL RBC 3.90 L (4.30-5.90) m/uL Hgb 11.9 L (13.0-17.5) gm/dL Hct 37.0 L (39.0-53.0) % RDW 14.6 H (11.5-14.5) % Immature Gran # 0.19 H (0.00-0.04) X 10*3/uL Neutrophils # 12.40 H (1.3-7.7) k/uL Lymphocytes # 0.70 L (1.0-4.8) k/uL Monocytes # 1.19 H (0.20-1.00) X 10*3/uL Sodium (137-145) mmol/L Carbon Dioxide (22-30) mmol/L BUN (9-20) mg/dL BUN/Creatinine Ratio (12.00-20.00) Ratio Glucose (74-99) mg/dL POC Glucose (mg/dL) 244 H (70-110) mg/dL Hemoglobin A1c 7.1 H (<=6.0) % Calcium (8.4-10.2) mg/dL AST (17-59) U/L ALT (4-49) U/L Alkaline Phosphatase (38-126) U/L Total Protein (6.3-8.2) g/dL Albumin (3.5-5.0) g/dL Albumin/Globulin Ratio (1.60-3.17) Ratio 08/26/23 08/26/23 08/26/23 Range/Units 03:48 03:51 05:40 WBC (3.8-10.6) k/uL RBC (4.30-5.90) m/uL Hgb (13.0-17.5) gm/dL Hct (39.0-53.0) % RDW (11.5-14.5) % Immature Gran # (0.00-0.04) X 10*3/uL Neutrophils # (1.3-7.7) k/uL Lymphocytes # (1.0-4.8) k/uL Monocytes # (0.20-1.00) X 10*3/uL Sodium 133 L (137-145) mmol/L Carbon Dioxide 20.0 L (22-30) mmol/L BUN 40.9 H (9-20) mg/dL BUN/Creatinine Ratio 34.08 H (12.00-20.00) Ratio Glucose 185 H (74-99) mg/dL POC Glucose (mg/dL) 191 H 145 H (70-110) mg/dL Hemoglobin A1c (<=6.0) % Calcium 8.1 L (8.4-10.2) mg/dL AST 136 H (17-59) U/L ALT 95 H (4-49) U/L Alkaline Phosphatase 139 H (38-126) U/L Total Protein 5.5 L (6.3-8.2) g/dL Albumin 2.6 L (3.5-5.0) g/dL Albumin/Globulin Ratio 0.90 L (1.60-3.17) Ratio 08/26/23 08/26/23 Range/Units 08:05 12:12 WBC (3.8-10.6) k/uL RBC (4.30-5.90) m/uL Hgb (13.0-17.5) gm/dL Hct (39.0-53.0) % RDW (11.5-14.5) % Immature Gran # (0.00-0.04) X 10*3/uL Neutrophils # (1.3-7.7) k/uL Lymphocytes # (1.0-4.8) k/uL Monocytes # (0.20-1.00) X 10*3/uL Sodium (137-145) mmol/L Carbon Dioxide (22-30) mmol/L BUN (9-20) mg/dL BUN/Creatinine Ratio (12.00-20.00) Ratio Glucose (74-99) mg/dL POC Glucose (mg/dL) 148 H 278 H (70-110) mg/dL Hemoglobin A1c (<=6.0) % Calcium (8.4-10.2) mg/dL AST (17-59) U/L ALT (4-49) U/L Alkaline Phosphatase (38-126) U/L Total Protein (6.3-8.2) g/dL Albumin (3.5-5.0) g/dL Albumin/Globulin Ratio (1.60-3.17) Ratio Microbiology - Last 24 Hours (Table) 08/25/23 17:00 Blood Culture Gram Stain - Preliminary Blood Blood Culture - Preliminary Molecular ID 08/25/23 17:15 Blood Culture Gram Stain - Preliminary Blood 08/25/23 16:14 Gram Stain - Preliminary Foot - Left Assessment and Plan (1) Diabetic infection of left foot Status: Acute Code(s): E11.628 - TYPE 2 DIABETES MELLITUS WITH OTHER SKIN COMPLICATIONS; L08.9 - LOCAL INFECTION OF THE SKIN AND SUBCUTANEOUS TISSUE, UNSP SNOMED Code(s): 58397373 (2) Sepsis Status: Acute Code(s): A41.9 - SEPSIS, UNSPECIFIED ORGANISM SNOMED Code(s): 26863127 (3) Type 2 diabetes mellitus with other skin ulcer Status: Acute Code(s): E11.622 - TYPE 2 DIABETES MELLITUS WITH OTHER SKIN ULCER; L98.499 - NON-PRESSURE CHRONIC ULCER OF SKIN OF SITES W UNSP SEVERITY SNOMED Code(s): 446348858 Plan: 1patient presented to hospital with sepsis in this patient who did have low- grade fever elevated white count source is extensive depression to the left foot and this patient underlying diabetes patient did have evidence of abscess on the basis of her plain x-rays and operative wound on the medial aspect of the right ankle area 2-patient with polymicrobial bacteremia source is likely extensive left diabetic foot infection 3-blood culture will be repeated document clearance of bacteremia and check inflammatory markers 4-discontinue vancomycin and Zosyn to decrease risk of nephrotoxicity 5-await surgical debridement and deep culture versus amputation with the surgery recommending for the patient is refusing 6-we will cover with the cefepime 2 g every 8 and Flagyl while waiting for the culture to finalize We will follow on clinical condition and cultures to further adjust medication if needed Thank you for this consultation we will follow the patient along with you Dictation was produced using [employer] dictation software. please excuse any grammatical, word or spelling errors. Time with Patient: Greater than 30
[2023-08-26] MEDS: INSULIN ASPART (NovoLOG) 100 UNIT/ML VIAL SQ ONE (20:43)
[2023-08-26] MEDS: METOPROLOL TARTRATE 25 MG TAB PO SCH (20:43)
[2023-08-27 00:16] LABS: Glucose,Whole Blood 248 mg/dL (70-110)
[2023-08-27 04:13] LABS: Glucose,Whole Blood 291 mg/dL (70-110)
[2023-08-27] MEDS: ACETAMINOPHEN TAB 325 MG TAB PO PRN (04:19)
[2023-08-27 06:30] LABS: African American GFR (CKD) 78 (>60 ml/min/1.73 sqM); Non-African American GFR(CKD) 68 (>60 ml/min/1.73 sqM)
[2023-08-27 08:11] LABS: Glucose,Whole Blood 259 mg/dL (70-110)
[2023-08-27 11:49] LABS: Glucose,Whole Blood 328 mg/dL (70-110)
--- NOTE | 2023-08-27 12:29 | P.PN ---
Subjective Progress Note Date: 08/27/23 Principal diagnosis: Elevated LFTs 52-year-old male with a history of chronic left foot wounds who presented for concerns of infection and pain. He has a past medical history including diabetes mellitus, hyperlipidemia, hypertension and chronic left foot wounds. He was noted to have elevated LFTs on admission. Patient denies any previous known history of elevated LFTs or liver disease. Denies any previous history of alcohol abuse. He denies any abdominal pain, nausea or vomiting. WBC 14.5 hemoglobin 11.9 platelet count 259,000 total bilirubin 0.3 AST 136 ALT 95 alkal ine phosphatase 139. Patient has been on long-term antibiotics for infection of the left foot and had had a previous PICC line. He states last antibiotic was about a month ago. He was started on vancomycin and Zosyn here yesterday. 08/27/2023 Patient seen and examined today as a follow-up. He is sitting up at the bedside. He is without any complaints. He denies any nausea or vomiting or abdominal pain. Hepatitis panel nonreactive. Today's labs are currently pending. Objective - Vital Signs Vital signs: Vital Signs Temp 99 F 08/27/23 05:24 Pulse 98 08/27/23 05:24 Resp 20 08/27/23 05:24 BP 111/70 08/27/23 04:15 Pulse Ox 94 L 08/27/23 05:24 FiO2 Intake & Output 08/26/23 08/27/23 08/27/23 18:59 06:59 18:59 Intake Total 1000 Balance 1000 Intake: Oral 1000 Other: Voiding Method Toilet # Voids 1 1 - Exam General appearance: The patient is alert, oriented, appears in no acute distress. HET: Head is normocephalic and atraumatic. Conjunctiva pink. Sclera anicteric. Neck: Supple without lymphadenopathy. Abdomen: Soft, nontender, nondistended with bowel sounds. No guarding or rigidity. Extremities: Left lower extremity swelling, venous stasis. Left foot with dressing with drainage. Skin: No rashes, no jaundice Neurological: No focal deficits. Alert and oriented. - Labs CBC & Chem 7: 08/26/23 03:48 08/27/23 05:56 Labs: Abnormal Lab Results - Last 24 Hours (Table) 08/26/23 08/26/23 08/26/23 Range/Units 12:12 16:14 19:55 POC Glucose (mg/dL) 278 H 409 H 438 H (70-110) mg/dL 08/27/23 08/27/23 08/27/23 Range/Units 00:12 04:11 08:09 POC Glucose (mg/dL) 248 H 291 H 259 H (70-110) mg/dL Microbiology - Last 24 Hours (Table) 08/25/23 17:15 Blood Culture Gram Stain - Preliminary Blood Blood Culture - Preliminary Presumptive Staph aureus 08/25/23 17:00 Blood Culture Gram Stain - Preliminary Blood Blood Culture - Preliminary Gram Neg Bacilli Presumptive Staph aureus Molecular ID 08/25/23 16:14 Gram Stain - Preliminary Foot - Left Wound Culture - Preliminary Gram Neg Bacilli Presumptive MRSA Assessment and Plan (1) Elevated LFTs Narrative/Plan: 52-year-old male with a history of diabetes mellitus and ongoing chronic wounds to the left foot that are nonhealing presenting for infected left foot wound. Patient has been on multiple antibiotics with PICC line with reported last antibiotic about a month ago. He was noted to have elevated LFTs on admission. No history of previous LFT elevation when trending labs. He denies previous history of underlying liver disease. And no history of alcoholism. Unclear etiology elevated LFTs may be secondary to diabetes mellitus and fatty liver disease. Liver ultrasound was ordered and does show echo coarse texture that can be seen in fatty liver underlying hepatocellular disease. Will obtain hepatitis panel. Avoid hepatotoxic medications. Will discontinue atorvastatin for now. Need to also consider possibe medication induced elevation secondary to recent antibiotic use. Current Visit: Yes Status: Acute Code(s): R79.89 - OTHER SPECIFIED ABNORMAL FINDINGS OF BLOOD CHEMISTRY SNOMED Code(s): 870219309 (2) Diabetes mellitus Current Visit: Yes Status: Acute Code(s): E11.9 - TYPE 2 DIABETES MELLITUS WITHOUT COMPLICATIONS SNOMED Code(s): 51846907 (3) Diabetic infection of left foot Current Visit: No Status: Acute Code(s): E11.628 - TYPE 2 DIABETES MELLITUS WITH OTHER SKIN COMPLICATIONS; L08.9 - LOCAL INFECTION OF THE SKIN AND SUBCUTANEOUS TISSUE, UNSP SNOMED Code(s): 36262375 Plan: 1. Continue symptomatic and supportive care 2. Diet as tolerated 3. Hepatitis panel ordered and reviewed 4. Liver ultrasound ordered and reviewed 5. Avoid hepatotoxic medications 6. Patient will likely need outpatient follow-up with gastroenterology. No further workup planned at this time Thank you for this consultation, we will sign off at this time. Dr. Marleen White I agree with the dictator's note, documented as a scribe by Zulema Bond.
--- NOTE | 2023-08-27 14:18 | PN ---
PROGRESS NOTE SUBJECTIVE: He is a 52-year-old white male, who is status post gas gangrene, severe osteomyelitis, cellulitis of the foot. Sugars in mid 200s to 300s. Creatinine is 1.21. So far, he has refused to have amputation of his legs, which has been recommended. He has fatty liver. Discussed case with Dr. Mendez who recommend amputation as well as vascular surgery does. White count 14.56, hemoglobin is 11.9. OBJECTIVE: CARDIOVASCULAR: S1, S2. LUNGS: Decreased breath sounds. SKIN: Warm and dry. NEUROLOGIC: Cranial nerves intact. Sugars mid 200s. Elevated LFTs due to fatty liver, diabetes mellitus, diabetic foot infection with osteomyelitis and gangrene. Please follow up with IV antibiotics until we decide whether he is going to get amputation or not if he agrees to it. Otherwise, we will need a PICC line for multiple weeks of antibiotics again after cultures come back. He has presumptive Staph aureus currently in his blood and gram-negative bacilli. Prognosis is severely guarded. Waiting for final recommendations. He will need broad-spectrum antibiotics, in the meantime Dr. Mendez is on the case. MMODL / IJN: [id number] /
[2023-08-27 15:52] LABS: BUN/Creat Ratio 28.85 Ratio (12.00-20.00); Blood Urea Nitrogen 37.5 mg/dL (9.0-27.0); Carbon Dioxide 19.1 mmol/L (21.6-31.8); Chloride 102 mmol/L (96-109); Glucose 291 mg/dL (70-110); Potassium 3.8 mmol/L (3.5-5.5); Sodium 134 mmol/L (135-145)
[2023-08-27 15:53] LABS: ALT 113 U/L (10-49); AST 95 U/L (14-35); Albumin 2.6 g/dL (3.8-4.9); Albumin/Globulin Ratio 0.81 Ratio (1.60-3.17); Alkaline Phosphatase 197 U/L (41-126); Globulin 3.2 g/dL (1.6-3.3); Total Bilirubin 0.3 mg/dL (0.3-1.2); Total Protein 5.8 g/dL (6.2-8.2)
[2023-08-27 15:59] LABS: Glucose,Whole Blood 384 mg/dL (70-110)
[2023-08-27] MEDS: PIOGLITAZONE 30 MG TAB PO SCH (16:58)
--- NOTE | 2023-08-27 20:39 | HP ---
HISTORY AND PHYSICAL HISTORY OF PRESENT ILLNESS: Devon Romero, examined him on 08/25/2023 in the emergency room. Past medical history, diabetes mellitus with osteomyelitis of the left foot. He had 8 weeks of IV antibiotics and wound care. He has been going to wound clinic at [facility]. His foot in a few weeks significantly swollen, red with multiple wounds throughout his foot with pulse in his foot and purulent drainage. He came to the hospital due to severe wound infection and foot osteomyelitis. History of neuropathy. HOME MEDICINES: 1. Lasix 40 daily. 2. Lamisil 250 daily. 3. Metformin 1000 b.i.d. 4. Famotidine 20 b.i.d. 5. Renvela 800 daily. 6. Zocor 20 daily. 7. Januvia 100 daily. 8. Jardiance 25 daily. 9. [place] 7.5 t.i.d. 10.Multivitamin daily. 11.Lyrica 200 t.i.d. 12.Zestril 20 daily. ALLERGIES: No known drug allergies. PAST MEDICAL HISTORY: Diabetes mellitus, dyslipidemia, hypertension, right foot MRSA, abdominal VRE, hernia repair. FAMILY HISTORY: Mother, diabetes mellitus. Father, cancer. REVIEW OF SYSTEMS: A 14-point review of systems otherwise negative. PHYSICAL EXAMINATION: VITAL SIGNS: Temp 99.4, pulse 111, respiratory rate 20, blood pressure 140s over 70s. GENERAL: He is well-appearing, nontoxic. PSYCH: Alert and oriented x3. Mood is fair. CHEST: Mild wheeze. CARDIOVASCULAR: S1, S2. MUSCULOSKELETAL: Left lower extremity, severe redness and swelling with multiple wounds in the foot side twice its normal size with redness throughout and cyanosis throughout his toes. ASSESSMENT: Diabetic foot infection, severe osteomyelitis, rule out sepsis, failed outpatient treatment. Leukocytosis secondary to above. Acute on chronic anemia secondary to above. Hyponatremia, possibly due to dehydration. He has COPD diastolic heart failure, diabetes mellitus, continue current treatment. Diabetes will be under better control with medications we ordered. Protein-calorie malnutrition, moderate. Low albumin, labile. Prognosis guarded. Continue current treatments. Possible amputation will be needed and due to significant gas production seen on CAT scan and severe foot infection. MMODL / IJN: [id number] /
[2023-08-27 20:58] LABS: Glucose,Whole Blood 386 mg/dL (70-110)
--- NOTE | 2023-08-27 21:50 | PN ---
PROGRESS NOTE SUBJECTIVE: White count is 14.56, hemoglobin is 11.9, platelets 259, which is much elevated LFTs, unclear etiology, possibly underlying liver disease, cirrhosis, diabetes mellitus, diabetic foot infection with gangrenous interventions. Continue symptomatic care. Diet as tolerated. Hepatitis, liver ultrasound, IV antibiotics. Possible amputation, will discuss full tomorrow, think about 1 more day. Try to get sugars a little bit better controlled. PROGNOSIS: Guarded. MMODL / IJN: [id number] /
[2023-08-28 00:05] LABS: Glucose,Whole Blood 511 mg/dL (70-110)
[2023-08-28 00:07] LABS: Glucose,Whole Blood 466 mg/dL (70-110)
[2023-08-28 04:21] LABS: Glucose,Whole Blood 400 mg/dL (70-110)
[2023-08-28 08:03] LABS: Glucose,Whole Blood 360 mg/dL (70-110)
[2023-08-28 08:46] LABS: Basophils # (A) 0.04 X 10*3/uL (0.00-0.10); Basophils % (A) 0.3 %; Eosinophils # (A) 0.04 X 10*3/uL (0.04-0.35); Eosinophils % (A) 0.3 %; HCT 33.8 % (39.6-50.0); HGB 10.9 g/dL (13.0-17.0); Lymphocytes # (A) 0.56 X 10*3/uL (0.90-5.00); Lymphocytes % (A) 3.6 %; MCH 30.8 pg (27.0-32.0); MCHC 32.2 g/dL (32.0-37.0); MCV 95.5 FL (80.0-97.0); Mean Platelet Volume 10.9 FL (9.5-12.2); Monocytes # (A) 1.38 X 10*3/uL (0.20-1.00); Monocytes % (A) 8.8 %; NRBC Per 100 WBC 0 X 10*3/uL (0.00-0.01); Neutrophils # (A) 13.43 X 10*3/uL (1.80-7.70); Neutrophils % (A) 85.6 %; Platelet Count 287 X 10*3/uL (140-440); RBC 3.54 X 10*6/uL (4.40-5.60); RDW 14.7 % (11.5-14.5); WBC 15.67 X 10*3/uL (4.50-10.00)
[2023-08-28 11:06] LABS: Glucose,Whole Blood 427 mg/dL (70-110)
[2023-08-28 13:21] LABS: ALT 61 U/L (10-49); AST 31 U/L (14-35); Albumin 2.1 g/dL (3.8-4.9); Albumin/Globulin Ratio 0.75 Ratio (1.60-3.17); Alkaline Phosphatase 153 U/L (41-126); BUN/Creat Ratio 30.38 Ratio (12.00-20.00); Blood Urea Nitrogen 39.5 mg/dL (9.0-27.0); Calcium 7.8 mg/dL (8.7-10.3); Carbon Dioxide 14.8 mmol/L (21.6-31.8); Chloride 104 mmol/L (96-109); Globulin 2.8 g/dL (1.6-3.3); Glucose 447 mg/dL (70-110); Sodium 133 mmol/L (135-145); Total Bilirubin <0.2 mg/dL (0.3-1.2); Total Protein 4.9 g/dL (6.2-8.2)
[2023-08-28 16:01] LABS: Glucose,Whole Blood 403 mg/dL (70-110)
[2023-08-28] MEDS: INSULIN ASPART (NovoLOG) 100 UNIT/ML VIAL SQ PRN (16:37)
[2023-08-28] MEDS ORDERED: VANCOMYCIN IV PER PHARMACY 1 EACH MISC MISCELLANE PRN (22:15)
[2023-08-28 22:40] LABS: Glucose,Whole Blood 333 mg/dL (70-110)
[2023-08-28] MEDS: VANCOMYCIN 1,500 MG in SODIUM CHLORIDE 0.9% 500 ML 500 ML IVPB SCH (22:59)
[2023-08-29 00:52] LABS: Glucose,Whole Blood 347 mg/dL (70-110)
[2023-08-29 04:28] LABS: Glucose,Whole Blood 309 mg/dL (70-110)
[2023-08-29 08:06] LABS: African American GFR (CKD) >90 (>60 ml/min/1.73 sqM); Non-African American GFR(CKD) >90 (>60 ml/min/1.73 sqM)
[2023-08-29 08:06] LABS: Glucose,Whole Blood 179 mg/dL (70-110)
--- NOTE | 2023-08-29 08:12 | P.PN ---
Subjective Progress Note Date: 08/27/23 Principal diagnosis: Reason for follow-up is sepsis left diabetic foot infection and bacteremia Patient is a 52-year-old male with a past medical history significant for diabetes mellitus hypertension hyperlipidemia and this patient who did have a history of left diabetic foot infection with an abscess s/p surgical drainage back in April 2023 with a culture grew MRSA Enterococcus faecalis and anaerobes for the patient has completed more than 8 weeks of IV antibiotic therapy and the patient was following at [facility], patient has been brought back to the hospital concerning for worsening left foot wound swelling and redness patient was noticed to be septic related to extensive left diabetic foot infection and did have bacteremia. On today's evaluation that is 08/27/2023, the patient did have a fever of 102.3 F at 4 AM the patient is afebrile since then, the patient is on room air and breathing comfortably, the Pt denies having any chest pain or cough, the patient denies having any abdominal pain no vomiting or any diarrhea and denies any worsening pain to the left lower extremity Patient did have a creatinine 1.3 no CBC was done today blood culture with Proteus and Staph aureus Objective - Vital Signs Vital signs: Vital Signs Temp 99.0 F 08/27/23 07:23 Pulse 80 08/27/23 09:45 Resp 17 08/27/23 07:23 BP 102/63 08/27/23 07:23 Pulse Ox 95 08/27/23 07:23 FiO2 Intake & Output 08/26/23 08/27/23 08/27/23 18:59 06:59 18:59 Intake Total 1000 Balance 1000 Intake: Oral 1000 Other: Voiding Method Toilet # Voids 1 1 1 - Exam GENERAL DESCRIPTION: Middle-age male lying in bed in no distress RESPIRATORY SYSTEM: Unlabored breathing , decreased breath sounds at bases HEART: S1 S2 regular rate and rhythm , ABDOMEN: Soft , no tenderness EXTREMITIES: Left foot with swelling and redness minimal drainage on the dressing - Labs CBC & Chem 7: 08/28/23 04:41 08/29/23 07:30 Labs: Abnormal Lab Results - Last 24 Hours (Table) 08/26/23 08/26/23 08/26/23 Range/Units 03:48 16:14 19:55 ESR >130 H (0-20) mm/Hr POC Glucose (mg/dL) 409 H 438 H (70-110) mg/dL 08/27/23 08/27/23 08/27/23 Range/Units 00:12 04:11 08:09 ESR (0-20) mm/Hr POC Glucose (mg/dL) 248 H 291 H 259 H (70-110) mg/dL 08/27/23 Range/Units 11:48 ESR (0-20) mm/Hr POC Glucose (mg/dL) 328 H (70-110) mg/dL Microbiology - Last 24 Hours (Table) 08/25/23 17:15 Blood Culture Gram Stain - Preliminary Blood Blood Culture - Preliminary Presumptive Staph aureus 08/25/23 17:00 Blood Culture Gram Stain - Preliminary Blood Blood Culture - Preliminary Gram Neg Bacilli Presumptive Staph aureus Molecular ID 08/25/23 16:14 Gram Stain - Preliminary Foot - Left Wound Culture - Preliminary Gram Neg Bacilli Presumptive MRSA Assessment and Plan (1) Bacteremia Current Visit: Yes Status: Acute Code(s): R78.81 - BACTEREMIA SNOMED Code(s): 2052578 (2) Diabetic infection of left foot Current Visit: No Status: Acute Code(s): E11.628 - TYPE 2 DIABETES MELLITUS WITH OTHER SKIN COMPLICATIONS; L08.9 - LOCAL INFECTION OF THE SKIN AND SUBCUTANEOUS TISSUE, UNSP SNOMED Code(s): 04789348 (3) Foot abscess, left Current Visit: No Status: Acute Code(s): L02.612 - CUTANEOUS ABSCESS OF LEFT FOOT SNOMED Code(s): 96969843313293914 Plan: 1patient presented to hospital with sepsis in this patient who did have low- grade fever elevated white count source is extensive infection of left foot and this patient with underlying diabetes patient did have evidence of abscess on the basis of her plain x-rays and operative wound on the medial aspect of the right ankle area 2-patient with polymicrobial bacteremia source is likely extensive left diabetic foot infection 3-blood culture will be repeated document clearance of bacteremia and check inflammatory markers 4--await surgical debridement and deep culture versus amputation with the surgery recommending for the patient is refusing 5-patient is currently covered with the cefepime 2 g every 8 and Flagyl while waiting for the culture to finalize Dictation was produced using [employer] dictation software. please excuse any grammatical, word or spelling errors. Time with Patient: Less than 30
--- NOTE | 2023-08-29 08:15 | P.PN ---
Subjective Progress Note Date: 08/28/23 Principal diagnosis: Reason for follow-up is sepsis left diabetic foot infection and bacteremia Patient is a 52-year-old male with a past medical history significant for diabetes mellitus hypertension hyperlipidemia and this patient who did have a history of left diabetic foot infection with an abscess s/p surgical drainage back in April 2023 with a culture grew MRSA Enterococcus faecalis and anaerobes for the patient has completed more than 8 weeks of IV antibiotic therapy and the patient was following at [facility], patient has been brought back to the hospital concerning for worsening left foot wound swelling and redness patient was noticed to be septic related to extensive left diabetic foot infection and did have bacteremia. On today's evaluation that is 08/28/2023, Patient did have improvement in his fever pattern and no fever documented this morning patient is currently on room air and denies having any shortness of breath, the patient denies any chest pain or cough, the patient denies any nausea vomiting did not have any abdominal pain and no diarrhea and denies any worsening pain to the left lower extremity. Patient white count slightly up to 15.67 creatinine is 1.3 blood cultures initially reported as MSSA has not been switched to MRSA Objective - Vital Signs Vital signs: Vital Signs Temp 98.3 F 08/28/23 13:55 Pulse 78 08/28/23 13:55 Resp 18 08/28/23 13:55 BP 112/69 08/28/23 13:55 Pulse Ox 97 08/28/23 13:55 FiO2 Intake & Output 08/27/23 08/28/23 08/28/23 18:59 06:59 18:59 Intake Total 580 Balance 580 Intake: Intake, IV Titration 100 Amount Cefepime 2 gm In Sodium 100 Chloride 0.9% 100 ml @ 25 mls/hr IVPB Q8HR [facility] Rx# :[id number] Oral 480 Other: Voiding Method Toilet # Voids 3 5 # Bowel Movements 1 - Exam GENERAL DESCRIPTION: Middle-age male lying in bed in no distress RESPIRATORY SYSTEM: Unlabored breathing , decreased breath sounds at bases HEART: S1 S2 regular rate and rhythm , ABDOMEN: Soft , no tenderness EXTREMITIES: Left foot with swelling and redness minimal drainage on the dressing - Labs CBC & Chem 7: 08/28/23 04:41 08/29/23 07:30 Labs: Abnormal Lab Results - Last 24 Hours (Table) 08/27/23 08/27/23 08/27/23 Range/Units 08:56 15:58 20:56 WBC (4.50-10.00) X 10*3/uL RBC (4.40-5.60) X 10*6/uL Hgb (13.0-17.0) g/dL Hct (39.6-50.0) % RDW (11.5-14.5) % Immature Gran # (0.00-0.04) X 10*3/uL Neutrophils # (1.80-7.70) X 10*3/uL Lymphocytes # (0.90-5.00) X 10*3/uL Monocytes # (0.20-1.00) X 10*3/uL Sodium 134 L (135-145) mmol/L Carbon Dioxide 19.1 L (21.6-31.8) mmol/L Anion Gap 12.90 H (4.00-12.00) mmol/L BUN 37.5 H (9.0-27.0) mg/dL BUN/Creatinine Ratio 28.85 H (12.00-20.00) Ratio Glucose 291 H (70-110) mg/dL POC Glucose (mg/dL) 384 H 386 H (70-110) mg/dL Calcium 8.0 L (8.7-10.3) mg/dL Total Bilirubin (0.3-1.2) mg/dL AST 95 H (14-35) U/L ALT 113 H (10-49) U/L Alkaline Phosphatase 197 H (41-126) U/L Total Protein 5.8 L (6.2-8.2) g/dL Albumin 2.6 L (3.8-4.9) g/dL Albumin/Globulin Ratio 0.81 L (1.60-3.17) Ratio 08/28/23 08/28/23 08/28/23 Range/Units 00:02 00:05 04:20 WBC (4.50-10.00) X 10*3/uL RBC (4.40-5.60) X 10*6/uL Hgb (13.0-17.0) g/dL Hct (39.6-50.0) % RDW (11.5-14.5) % Immature Gran # (0.00-0.04) X 10*3/uL Neutrophils # (1.80-7.70) X 10*3/uL Lymphocytes # (0.90-5.00) X 10*3/uL Monocytes # (0.20-1.00) X 10*3/uL Sodium (135-145) mmol/L Carbon Dioxide (21.6-31.8) mmol/L Anion Gap (4.00-12.00) mmol/L BUN (9.0-27.0) mg/dL BUN/Creatinine Ratio (12.00-20.00) Ratio Glucose (70-110) mg/dL POC Glucose (mg/dL) 511 H 466 H 400 H (70-110) mg/dL Calcium (8.7-10.3) mg/dL Total Bilirubin (0.3-1.2) mg/dL AST (14-35) U/L ALT (10-49) U/L Alkaline Phosphatase (41-126) U/L Total Protein (6.2-8.2) g/dL Albumin (3.8-4.9) g/dL Albumin/Globulin Ratio (1.60-3.17) Ratio 08/28/23 08/28/23 08/28/23 Range/Units 04:41 04:41 08:02 WBC 15.67 H (4.50-10.00) X 10*3/uL RBC 3.54 L (4.40-5.60) X 10*6/uL Hgb 10.9 L (13.0-17.0) g/dL Hct 33.8 L (39.6-50.0) % RDW 14.7 H (11.5-14.5) % Immature Gran # 0.22 H (0.00-0.04) X 10*3/uL Neutrophils # 13.43 H (1.80-7.70) X 10*3/uL Lymphocytes # 0.56 L (0.90-5.00) X 10*3/uL Monocytes # 1.38 H (0.20-1.00) X 10*3/uL Sodium 133 L (135-145) mmol/L Carbon Dioxide 14.8 L (21.6-31.8) mmol/L Anion Gap 14.20 H (4.00-12.00) mmol/L BUN 39.5 H (9.0-27.0) mg/dL BUN/Creatinine Ratio 30.38 H (12.00-20.00) Ratio Glucose 447 H (70-110) mg/dL POC Glucose (mg/dL) 360 H (70-110) mg/dL Calcium 7.8 L (8.7-10.3) mg/dL Total Bilirubin <0.2 L (0.3-1.2) mg/dL AST (14-35) U/L ALT 61 H (10-49) U/L Alkaline Phosphatase 153 H (41-126) U/L Total Protein 4.9 L (6.2-8.2) g/dL Albumin 2.1 L (3.8-4.9) g/dL Albumin/Globulin Ratio 0.75 L (1.60-3.17) Ratio 08/28/23 Range/Units 11:04 WBC (4.50-10.00) X 10*3/uL RBC (4.40-5.60) X 10*6/uL Hgb (13.0-17.0) g/dL Hct (39.6-50.0) % RDW (11.5-14.5) % Immature Gran # (0.00-0.04) X 10*3/uL Neutrophils # (1.80-7.70) X 10*3/uL Lymphocytes # (0.90-5.00) X 10*3/uL Monocytes # (0.20-1.00) X 10*3/uL Sodium (135-145) mmol/L Carbon Dioxide (21.6-31.8) mmol/L Anion Gap (4.00-12.00) mmol/L BUN (9.0-27.0) mg/dL BUN/Creatinine Ratio (12.00-20.00) Ratio Glucose (70-110) mg/dL POC Glucose (mg/dL) 427 H (70-110) mg/dL Calcium (8.7-10.3) mg/dL Total Bilirubin (0.3-1.2) mg/dL AST (14-35) U/L ALT (10-49) U/L Alkaline Phosphatase (41-126) U/L Total Protein (6.2-8.2) g/dL Albumin (3.8-4.9) g/dL Albumin/Globulin Ratio (1.60-3.17) Ratio Microbiology - Last 24 Hours (Table) 08/25/23 17:15 Blood Culture Gram Stain - Final Blood Blood Culture - Final Methicillin resist S. aureus 08/25/23 17:00 Blood Culture Gram Stain - Final Blood Blood Culture - Final Proteus mirabilis Methicillin resist S. aureus Molecular ID 08/25/23 16:14 Gram Stain - Preliminary Foot - Left Wound Culture - Preliminary Proteus mirabilis Presumptive MRSA Assessment and Plan (1) Bacteremia Current Visit: Yes Status: Acute Code(s): R78.81 - BACTEREMIA SNOMED Code(s): 5793492 (2) Diabetes with skin ulcer Current Visit: No Status: Acute Code(s): E11.622 - TYPE 2 DIABETES MELLITUS WITH OTHER SKIN ULCER; L98.499 - NON-PRESSURE CHRONIC ULCER OF SKIN OF SITES W UNSP SEVERITY SNOMED Code(s): 41722016 (3) Diabetic infection of left foot Current Visit: No Status: Acute Code(s): E11.628 - TYPE 2 DIABETES MELLITUS WITH OTHER SKIN COMPLICATIONS; L08.9 - LOCAL INFECTION OF THE SKIN AND SUBCUTANEOUS TISSUE, UNSP SNOMED Code(s): 34766219 Plan: 1patient presented to hospital with sepsis in this patient who did have low- grade fever elevated white count source is extensive infection of left foot and this patient with underlying diabetes patient did have evidence of abscess on the basis of her plain x-rays and operative wound on the medial aspect of the right ankle area 2-patient with polymicrobial bacteremia source is likely extensive left diabetic foot infection 3-blood culture previously reported as MSSA has been switched to MRSA 4--we will not be able to clear of this infection with antibiotic alone as vascular surgery has signed off on this case recommend transferring the patient to tertiary care for a second opinion 5-patient to continue with the cefepime will add vancomycin pharmacy to dose and repeat his blood culture Dictation was produced using [employer] dictation software. please excuse any grammatical, word or spelling errors. Time with Patient: Less than 30
[2023-08-29 12:05] LABS: Glucose,Whole Blood 300 mg/dL (70-110)
[2023-08-29 16:08] LABS: Glucose,Whole Blood 445 mg/dL (70-110)
[2023-08-29 20:51] LABS: Glucose,Whole Blood 485 mg/dL (70-110)
[2023-08-30 00:08] LABS: Glucose,Whole Blood 385 mg/dL (70-110)
[2023-08-30 04:05] LABS: Glucose,Whole Blood 213 mg/dL (70-110)
--- NOTE | 2023-08-30 05:42 | PN ---
PROGRESS NOTE SUBJECTIVE: This is a 52-year-old white male who is trying to 8 weeks of IV antibiotics and wound care at the wound Center outpatient, came in for extremely gas green and ischemic, severely infected leg and foot about twice the size of a normal, one. He has positive blood cultures. Dr. Mendez is following him. Vascular surgery has been following him. His white count is 15.6, hemoglobin is 10.9. OBJECTIVE: ABDOMEN: Soft. CARDIOVASCULAR: S1, S2. LUNGS: Decreased breath sounds at the bases. He is in no acute distress. Sugars mid 300s, carbon dioxide 19.1, sodium 134, AST is 95, ALT 113, alkaline phosphatase 197. ASSESSMENT: Bacteremia, diabetes with skin ulcer, diabetic infections of the left foot, elevated white count, extensive infection of foot. Abscess in the base, plain x-rays of multiple areas of ankle, bacteremia source extensive left foot diabetic infection. He has possible MRSA in the blood and Dr. Mendez says he will not able to clear this infection with antibiotics alone, vascular surgery signed off on the case. Possibly go to a tertiary center for a second opinion. Continue with cefepime and vancomycin. Repeat his blood cultures. Talk to the patient, see what he wants to do. PROGNOSIS: Guarded. MMODL / IJN: [id number] /
[2023-08-30 07:00] LABS: African American GFR (CKD) >90 (>60 ml/min/1.73 sqM); Non-African American GFR(CKD) >90 (>60 ml/min/1.73 sqM)
[2023-08-30 08:15] LABS: Glucose,Whole Blood 243 mg/dL (70-110)
[2023-08-30 12:04] LABS: Glucose,Whole Blood 395 mg/dL (70-110)
--- NOTE | 2023-08-30 12:31 | P.PN ---
Subjective Progress Note Date: 08/29/23 Principal diagnosis: Reason for follow-up is sepsis left diabetic foot infection and bacteremia Patient is a 52-year-old male with a past medical history significant for diabetes mellitus hypertension hyperlipidemia and this patient who did have a history of left diabetic foot infection with an abscess s/p surgical drainage back in April 2023 with a culture grew MRSA Enterococcus faecalis and anaerobes for the patient has completed more than 8 weeks of IV antibiotic therapy and the patient was following at [facility], patient has been brought back to the hospital concerning for worsening left foot wound swelling and redness patient was noticed to be septic related to extensive left diabetic foot infection and did have bacteremia. On today's evaluation that is 08/29/2023, patient has been afebrile, patient is breathing comfortably and is currently on room air, patient denies having any significant cough no chest pain shortness of breath, patient denies nausea vomiting or diarrhea and no abdominal pain, the patient denies pain to the left lower extremity. Patient did have a sed rate of 97 creatinine 0.83 no CBC was done today Objective - Vital Signs Vital signs: Vital Signs Temp 98.9 F 08/29/23 01:34 Pulse 77 08/29/23 09:41 Resp 20 08/29/23 07:48 BP 101/61 08/29/23 06:57 Pulse Ox 91 L 08/29/23 06:57 FiO2 Intake & Output 08/28/23 08/29/23 08/29/23 18:59 06:59 18:59 Intake Total 3600 Output Total 4 Balance 3596 Intake: Oral 3600 Output: Urine 4 Other: Voiding Method Toilet Toilet # Voids 3 # Bowel Movements 1 - Exam GENERAL DESCRIPTION: Middle-age male lying in bed in no distress RESPIRATORY SYSTEM: Unlabored breathing , decreased breath sounds at bases HEART: S1 S2 regular rate and rhythm , ABDOMEN: Soft , no tenderness EXTREMITIES: Left foot with swelling and redness minimal drainage on the dressing - Labs CBC & Chem 7: 08/28/23 04:41 08/30/23 06:12 Labs: Abnormal Lab Results - Last 24 Hours (Table) 08/28/23 08/28/23 08/29/23 Range/Units 16:00 22:34 00:50 ESR (0-20) mm/Hr POC Glucose (mg/dL) 403 H 333 H 347 H (70-110) mg/dL C-Reactive Protein (0.00-0.80) mg/dL 08/29/23 08/29/23 08/29/23 Range/Units 04:26 07:30 07:30 ESR 97 H (0-20) mm/Hr POC Glucose (mg/dL) 309 H (70-110) mg/dL C-Reactive Protein 8.70 H (0.00-0.80) mg/dL 08/29/23 08/29/23 Range/Units 08:04 12:03 ESR (0-20) mm/Hr POC Glucose (mg/dL) 179 H 300 H (70-110) mg/dL C-Reactive Protein (0.00-0.80) mg/dL Microbiology - Last 24 Hours (Table) 08/27/23 16:24 Blood Culture - Preliminary Blood 08/25/23 16:14 Gram Stain - Final Foot - Left Wound Culture - Final Proteus mirabilis Methicillin resist S. aureus Assessment and Plan (1) Bacteremia Current Visit: Yes Status: Acute Code(s): R78.81 - BACTEREMIA SNOMED Code(s): 1924265 (2) Diabetes with skin ulcer Current Visit: No Status: Acute Code(s): E11.622 - TYPE 2 DIABETES MELLITUS WITH OTHER SKIN ULCER; L98.499 - NON-PRESSURE CHRONIC ULCER OF SKIN OF SITES W UNSP SEVERITY SNOMED Code(s): 82833856 (3) Diabetic infection of left foot Current Visit: No Status: Acute Code(s): E11.628 - TYPE 2 DIABETES MELLITUS WITH OTHER SKIN COMPLICATIONS; L08.9 - LOCAL INFECTION OF THE SKIN AND SUBCUTANEOUS TISSUE, UNSP SNOMED Code(s): 63389647 Plan: 1patient presented to hospital with sepsis in this patient who did have low- grade fever elevated white count source is extensive infection of left foot and this patient with underlying diabetes patient did have evidence of abscess on the basis of her plain x-rays and operative wound on the medial aspect of the right ankle area 2-patient with polymicrobial bacteremia source is likely extensive left diabetic foot infection 3-blood culture previously reported as MSSA has been switched to MRSA 4--we will not be able to clear of this infection with antibiotic alone as vascular surgery has signed off on this case recommend transferring the patient to tertiary care for a second opinion 5-patient currently covered with cefepime and vancomycin will watch his Vanco trough and kidney function closely Dictation was produced using [employer] dictation software. please excuse any grammatical, word or spelling errors. Time with Patient: Less than 30
--- NOTE | 2023-08-30 12:33 | P.PN ---
Subjective Progress Note Date: 08/30/23 Principal diagnosis: Reason for follow-up is sepsis left diabetic foot infection and bacteremia Patient is a 52-year-old male with a past medical history significant for diabetes mellitus hypertension hyperlipidemia and this patient who did have a history of left diabetic foot infection with an abscess s/p surgical drainage back in April 2023 with a culture grew MRSA Enterococcus faecalis and anaerobes for the patient has completed more than 8 weeks of IV antibiotic therapy and the patient was following at [facility], patient has been brought back to the hospital concerning for worsening left foot wound swelling and redness patient was noticed to be septic related to extensive left diabetic foot infection and did have bacteremia. On today's evaluation that is 08/30/2023,the patient denies any fever or any chills, patient is breathing comfortably on room air, the patient denies chest pain shortness of breath and no significant cough, patient denies abdominal pain, no nausea vomiting or diarrhea. Patient did have a creatinine 0.84 blood culture repeat so far pending Objective - Vital Signs Vital signs: Vital Signs Temp 99.2 F 08/30/23 07:22 Pulse 84 08/30/23 07:22 Resp 18 08/30/23 07:22 BP 118/69 08/30/23 07:22 Pulse Ox 93 L 08/30/23 07:22 FiO2 Intake & Output 08/29/23 08/30/23 08/30/23 18:59 06:59 18:59 Intake Total 1900 Balance 1900 Intake: Intake, IV Titration 700 Amount Cefepime 2 gm In Sodium 200 Chloride 0.9% 100 ml @ 25 mls/hr IVPB Q8HR CARL Rx# :[id number] Vancomycin 1,500 mg In 500 Sodium Chloride 0.9% 500 ml 500 ml @ 167 mls/hr IVPB Q12HR CARL Rx#: [id number] Oral 1200 Other: Voiding Method Toilet Toilet # Voids 6 2 1 # Bowel Movements 1 - Exam GENERAL DESCRIPTION: Middle-age male lying in bed in no distress RESPIRATORY SYSTEM: Unlabored breathing , decreased breath sounds at bases HEART: S1 S2 regular rate and rhythm , ABDOMEN: Soft , no tenderness EXTREMITIES: Left foot with swelling and redness minimal drainage on the dressing - Labs CBC & Chem 7: 08/28/23 04:41 08/30/23 06:12 Labs: Abnormal Lab Results - Last 24 Hours (Table) 08/29/23 08/29/23 08/30/23 Range/Units 16:07 19:46 00:05 POC Glucose (mg/dL) 445 H 485 H 385 H (70-110) mg/dL 08/30/23 08/30/23 08/30/23 Range/Units 04:03 08:13 12:02 POC Glucose (mg/dL) 213 H 243 H 395 H (70-110) mg/dL Microbiology - Last 24 Hours (Table) 08/27/23 16:24 Blood Culture - Preliminary Blood Assessment and Plan (1) Bacteremia Current Visit: Yes Status: Acute Code(s): R78.81 - BACTEREMIA SNOMED Code(s): 4481811 (2) Diabetes with skin ulcer Current Visit: No Status: Acute Code(s): E11.622 - TYPE 2 DIABETES MELLITUS WITH OTHER SKIN ULCER; L98.499 - NON-PRESSURE CHRONIC ULCER OF SKIN OF SITES W UNSP SEVERITY SNOMED Code(s): 71857332 (3) Diabetic infection of left foot Current Visit: No Status: Acute Code(s): E11.628 - TYPE 2 DIABETES MELLITUS WITH OTHER SKIN COMPLICATIONS; L08.9 - LOCAL INFECTION OF THE SKIN AND SUBCUTANEOUS TISSUE, UNSP SNOMED Code(s): 40594868 Plan: 1patient presented to hospital with sepsis in this patient who did have low- grade fever elevated white count source is extensive infection of left foot and this patient with underlying diabetes patient did have evidence of abscess on the basis of her plain x-rays and operative wound on the medial aspect of the right ankle area 2-patient with polymicrobial bacteremia source is likely extensive left diabetic foot infection 3-blood culture previously reported as MSSA has been switched to MRSA 4--patient did have extensive infection of the left lower extremity and only surgical debridement versus amputation recommend transfer to tertiary care as the vascular surgery has signed off on this case 5-patient repeat blood cultures so far negative we will continue vancomycin worsening his kidney function closely along with cefepime Dictation was produced using [employer] dictation software. please excuse any grammatical, word or spelling errors. Time with Patient: Less than 30
--- NOTE | 2023-08-30 12:58 | PN ---
PROGRESS NOTE SUBJECTIVE: This is a 52-year-old white male. Sugars in the 200s to 300s. GFR is over 90. Waiting for him to decide whether he want amputation of the leg. He has MRSA in his blood. He is on broad-spectrum antibiotics. Dr. Mendez does not think the antibiotics are going to be strong enough to care his wounds in his foot. OBJECTIVE: VITAL SIGNS: O2 is 93% on room air, blood pressure 118/69, temperature 99.0, pulse 84, and respiratory rate 18. CARDIOVASCULAR: S1 and S2. LUNGS: Clear. PSYCH: Alert and oriented x3. NEUROLOGIC: Cranial nerves intact. HEMATOLOGY: Negative Homans. Wait for Dr. Mendez's recommendation. Most likely will need amputation. We will decide over the next day or 2 whether he is going to agree to this, otherwise continue broad- spectrum IV antibiotics. MMODL / IJN: [id number] /
[2023-08-30 15:52] LABS: Glucose,Whole Blood 388 mg/dL (70-110)
[2023-08-30 20:48] LABS: Glucose,Whole Blood 311 mg/dL (70-110)
[2023-08-31 00:04] LABS: Glucose,Whole Blood 332 mg/dL (70-110)
[2023-08-31 04:19] LABS: Glucose,Whole Blood 197 mg/dL (70-110)
[2023-08-31 08:48] LABS: Glucose,Whole Blood 348 mg/dL (70-110)
[2023-08-31 09:06] LABS: ALT 25 U/L (4-49); AST 21 U/L (17-59); African American GFR (CKD) >90 (>60 ml/min/1.73 sqM); Albumin 2.3 g/dL (3.5-5.0); Albumin/Globulin Ratio 0.7; Alkaline Phosphatase 137 U/L (38-126); Anion Gap 8 mmol/L; Blood Urea Nitrogen 23 mg/dL (9-20); Calcium 8.5 mg/dL (8.4-10.2); Carbon Dioxide 19 mmol/L (22-30); Chloride 109 mmol/L (98-107); Globulin 3.4 g/dL; Glucose 294 mg/dL (74-99); Non-African American GFR(CKD) >90 (>60 ml/min/1.73 sqM); Potassium 4.6 mmol/L (3.5-5.1); Sodium 136 mmol/L (137-145); Total Bilirubin 0.4 mg/dL (0.2-1.3); Total Protein 5.7 g/dL (6.3-8.2)
[2023-08-31] MEDS: VANCOMYCIN TROUGH DUE 1 EACH MISC MISCELLANE ONE (10:37)
[2023-08-31 11:49] LABS: Glucose,Whole Blood 319 mg/dL (70-110)
[2023-08-31 13:02] LABS: Basophils # (A) 0.06 X 10*3/uL (0.00-0.10); Basophils % (A) 0.4 %; Eosinophils # (A) 0.01 X 10*3/uL (0.04-0.35); Eosinophils % (A) 0.1 %; HCT 37.5 % (39.6-50.0); HGB 12.1 g/dL (13.0-17.0); Lymphocytes # (A) 1.19 X 10*3/uL (0.90-5.00); Lymphocytes % (A) 8.5 %; MCH 30.3 pg (27.0-32.0); MCHC 32.3 g/dL (32.0-37.0); Mean Platelet Volume 10.4 FL (9.5-12.2); Monocytes # (A) 1.19 X 10*3/uL (0.20-1.00); Monocytes % (A) 8.5 %; NRBC Per 100 WBC 0 X 10*3/uL (0.00-0.01); Neutrophils # (A) 11.44 X 10*3/uL (1.80-7.70); Neutrophils % (A) 81.3 %; Platelet Count 376 X 10*3/uL (140-440); RBC 3.99 X 10*6/uL (4.40-5.60); RDW 14.7 % (11.5-14.5); WBC 14.06 X 10*3/uL (4.50-10.00)
[2023-08-31 16:24] LABS: Glucose,Whole Blood 295 mg/dL (70-110)
--- NOTE | 2023-08-31 18:38 | P.PN ---
Subjective Progress Note Date: 08/31/23 Principal diagnosis: Reason for follow-up is sepsis left diabetic foot infection and bacteremia Patient is a 52-year-old male with a past medical history significant for diabetes mellitus hypertension hyperlipidemia and this patient who did have a history of left diabetic foot infection with an abscess s/p surgical drainage back in April 2023 with a culture grew MRSA Enterococcus faecalis and anaerobes for the patient has completed more than 8 weeks of IV antibiotic therapy and the patient was following at [facility], patient has been brought back to the hospital concerning for worsening left foot wound swelling and redness patient was noticed to be septic related to extensive left diabetic foot infection and did have bacteremia. On today's evaluation that is 08/31/2023,the patient did have a low-grade fever 100 F this morning the patient is afebrile since then patient is currently breathing comfortably on room air denies any chest pain shortness of breath or cough no abdominal pain or worsening pain to the left foot area. The patient white count is 14.06, creatinine 0.6 blood culture repeat currently pending Objective - Vital Signs Vital signs: Vital Signs Temp 98.9 F 08/31/23 10:40 Pulse 88 08/31/23 07:44 Resp 18 08/31/23 07:44 BP 111/62 08/31/23 07:44 Pulse Ox 92 L 08/31/23 07:44 FiO2 Intake & Output 08/30/23 08/31/23 08/31/23 18:59 06:59 18:59 Intake Total 1200 Balance 1200 Intake: Intake, IV Titration 700 Amount Cefepime 2 gm In Sodium 200 Chloride 0.9% 100 ml @ 25 mls/hr IVPB Q8HR CARL Rx# :[id number] Vancomycin 1,500 mg In 500 Sodium Chloride 0.9% 500 ml 500 ml @ 167 mls/hr IVPB Q12HR CARL Rx#: [id number] Oral 500 Other: # Voids 1 2 # Bowel Movements 1 1 - Exam GENERAL DESCRIPTION: Middle-age male lying in bed in no distress RESPIRATORY SYSTEM: Unlabored breathing , decreased breath sounds at bases HEART: S1 S2 regular rate and rhythm , ABDOMEN: Soft , no tenderness EXTREMITIES: Left foot with swelling and redness did have extensive wound on the medial as well as lateral aspect and the plantar aspect - Labs CBC & Chem 7: 08/31/23 08:17 08/31/23 08:17 Labs: Abnormal Lab Results - Last 24 Hours (Table) 08/30/23 08/31/23 08/31/23 Range/Units 20:46 00:02 04:05 WBC (4.50-10.00) X 10*3/uL RBC (4.40-5.60) X 10*6/uL Hgb (13.0-17.0) g/dL Hct (39.6-50.0) % RDW (11.5-14.5) % Immature Gran # (0.00-0.04) X 10*3/uL Neutrophils # (1.80-7.70) X 10*3/uL Monocytes # (0.20-1.00) X 10*3/uL Eosinophils # (0.04-0.35) X 10*3/uL Sodium (137-145) mmol/L Chloride (98-107) mmol/L Carbon Dioxide (22-30) mmol/L BUN (9-20) mg/dL Glucose (74-99) mg/dL POC Glucose (mg/dL) 311 H 332 H 197 H (70-110) mg/dL Alkaline Phosphatase (38-126) U/L Total Protein (6.3-8.2) g/dL Albumin (3.5-5.0) g/dL 08/31/23 08/31/23 08/31/23 Range/Units 08:17 08:17 08:45 WBC 14.06 H (4.50-10.00) X 10*3/uL RBC 3.99 L (4.40-5.60) X 10*6/uL Hgb 12.1 L (13.0-17.0) g/dL Hct 37.5 L (39.6-50.0) % RDW 14.7 H (11.5-14.5) % Immature Gran # 0.17 H (0.00-0.04) X 10*3/uL Neutrophils # 11.44 H (1.80-7.70) X 10*3/uL Monocytes # 1.19 H (0.20-1.00) X 10*3/uL Eosinophils # 0.01 L (0.04-0.35) X 10*3/uL Sodium 136 L (137-145) mmol/L Chloride 109 H (98-107) mmol/L Carbon Dioxide 19 L (22-30) mmol/L BUN 23 H (9-20) mg/dL Glucose 294 H (74-99) mg/dL POC Glucose (mg/dL) 348 H (70-110) mg/dL Alkaline Phosphatase 137 H (38-126) U/L Total Protein 5.7 L (6.3-8.2) g/dL Albumin 2.3 L (3.5-5.0) g/dL 08/31/23 08/31/23 Range/Units 11:48 16:23 WBC (4.50-10.00) X 10*3/uL RBC (4.40-5.60) X 10*6/uL Hgb (13.0-17.0) g/dL Hct (39.6-50.0) % RDW (11.5-14.5) % Immature Gran # (0.00-0.04) X 10*3/uL Neutrophils # (1.80-7.70) X 10*3/uL Monocytes # (0.20-1.00) X 10*3/uL Eosinophils # (0.04-0.35) X 10*3/uL Sodium (137-145) mmol/L Chloride (98-107) mmol/L Carbon Dioxide (22-30) mmol/L BUN (9-20) mg/dL Glucose (74-99) mg/dL POC Glucose (mg/dL) 319 H 295 H (70-110) mg/dL Alkaline Phosphatase (38-126) U/L Total Protein (6.3-8.2) g/dL Albumin (3.5-5.0) g/dL Microbiology - Last 24 Hours (Table) 08/29/23 07:30 Blood Culture - Preliminary Blood 08/27/23 16:24 Blood Culture - Preliminary Blood Assessment and Plan (1) Bacteremia Current Visit: Yes Status: Acute Code(s): R78.81 - BACTEREMIA SNOMED Co de(s): 5940777 (2) Diabetes with skin ulcer Current Visit: No Status: Acute Code(s): E11.622 - TYPE 2 DIABETES MELLITUS WITH OTHER SKIN ULCER; L98.499 - NON-PRESSURE CHRONIC ULCER OF SKIN OF SITES W UNSP SEVERITY SNOMED Code(s): 92496758 (3) Diabetic infection of left foot Current Visit: No Status: Acute Code(s): E11.628 - TYPE 2 DIABETES MELLITUS WITH OTHER SKIN COMPLICATIONS; L08.9 - LOCAL INFECTION OF THE SKIN AND SUBCUTANEOUS TISSUE, UNSP SNOMED Code(s): 56033387 Plan: 1patient presented to hospital with sepsis in this patient who did have low- grade fever elevated white count source is extensive infection of left foot and this patient with underlying diabetes patient did have evidence of abscess on the basis of her plain x-rays and operative wound on the medial aspect of the right ankle area 2-patient with polymicrobial bacteremia source is likely extensive left diabetic foot infection 3-blood culture previously reported as MSSA has been switched to MRSA 4--patient did have extensive infection of the left lower extremity will benefit from left below the knee amputation this has been discussed with the patient as well as admitting team vascular surgery has been reconsulted 5-patient repeat blood cultures so far negative patient to continue vancomycin along with cefepime and watch his kidney function closely Dictation was produced using [employer] dictation software. please excuse any g rammatical, word or spelling errors.
[2023-08-31 20:19] LABS: Glucose,Whole Blood 403 mg/dL (70-110)
[2023-09-01 00:02] LABS: Glucose,Whole Blood 395 mg/dL (70-110)
--- NOTE | 2023-09-01 03:31 | PN ---
PROGRESS NOTE SUBJECTIVE: A 52-year-old white male, his blood cultures now negative so far. He has been treated with MRSA bacteremia and severe diabetic wound infection of the foot. The patient is trying to decide whether he wants amputation or not, which is recommended by Infectious Disease and Vascular, or he wants to be transferred. OBJECTIVE: VITAL SIGNS: T-max was 100 degrees Fahrenheit. His oxygen was 92% on room air, temp 98.9. CARDIOVASCULAR: S1, S2. LUNGS: Transmitted upper airway sounds. PSYCH: Fair mood and affect. NEUROLOGIC: Alert and oriented x3. EXTREMITIES: Wound is dressed in a dressing. Prognosis guarded. Continue current treatment or see when he wants to do. His sugars are high and possibly had something more for sugar. Prognosis guarded. MMODL / IJN: [id number] /
[2023-09-01 04:03] LABS: Glucose,Whole Blood 266 mg/dL (70-110)
--- NOTE | 2023-09-01 05:10 | PN ---
PROGRESS NOTE SUBJECTIVE: A 52-year-old, diabetes, hypertension, dyslipidemia. He has MRSA bacteremia, so further repeat cultures are negative. Failed outpatient antibiotics for 8 weeks. He came in with worsening wound infection. OBJECTIVE: VITAL SIGNS: Blood pressure 118 over 60s, O2 is 93% to 95%, pulse 80s, respiratory rate 16 to 18. GENERAL: Well-nourished, obese white male. CARDIOVASCULAR: S1, S2. LUNGS: Mild wheeze. ABDOMEN: Soft. EXTREMITIES: Dressed with a wound dressing. Leukocytosis secondary to bacteremia and diabetic wound infection in the legs of severe nature. Diabetic infection of the left foot. He had sepsis, extensive infection of the left foot with underlying diabetes, polymicrobial bacteremia, source is likely extensive, left foot diabetic infection. Blood cultures previously MRSA, so the patient will continue vancomycin and cefepime. Prognosis guarded. Please see further orders. MMODL / IJN: [id number] /
[2023-09-01 05:24] LABS: African American GFR (CKD) >90 (>60 ml/min/1.73 sqM); Non-African American GFR(CKD) >90 (>60 ml/min/1.73 sqM)
[2023-09-01 08:00] LABS: Glucose,Whole Blood 340 mg/dL (70-110)
--- NOTE | 2023-09-01 10:07 | P.GSCN ---
History of Present Illness Consult date: 09/01/23 Reason for Consult: Patient agrees to amputation Requesting physician: [facility] Hooper History of present illness: 52-year-old male with a significant nonhealing infected left lower extremity wound which has been present for couple of years and has been following with the wound care center. He has a past medical history including chronic nonhealing wounds, diabetes mellitus, hyperlipidemia and hypertension. He was admitted to the hospital on 08/25/2023 with a vascular surgery consult. Left foot x-ray on admission showed gas formation concerning for deep infection within the bone. Vascular surgery had recommended a below the knee amputation as wounds likely will not heal due to the extent of the infection. Patient had refused any amputation and surgical debridement would not have been beneficial although p atient even refused surgical debridement. Wound care was consulted for further local wound care treatment. Patient has been on IV antibiotics, patient had positive blood cultures with MRSA. Patient states that he would only do what was recommended by Dr. Hooper and apparently yesterday Dr. Hooper had stated that he recommended him to have the below the knee amputation. Vascular surgery was consulted for left below the knee amputation. Patient had low-grade temp yesterday morning, he has been afebrile today. Denies any shortness of breath, chest pain, abdominal pain, nausea or vomiting. Denies chills or bodyaches. Review of Systems A 14 point review systems was completed all pertinent positives and negatives as stated in the HPI. Past Medical History Past Medical History: Diabetes Mellitus, Hyperlipidemia, Hypertension Additional Past Medical History / Comment(s): STATES SORE ON THE BOTTOM OF LEFT FOOT. History of Any Multi-Drug Resistant Organisms: MRSA, VRE Year Discovered:: 08/25/23 MRSA; 10/02/22 VRE MDRO Source:: Left FOot and Blood-MRSA; Abdomen-VRE Past Surgical History: Hernia Repair Past Anesthesia/Blood Transfusion Reactions: No Reported Reaction Additional Past Anesthesia/Blood Transfusion Reaction / Comm: PT HAS NEVER RECEIVED ANESTHESIA. Past Psychological History: Anxiety Smoking Status: Former smoker Past Alcohol Use History: Occasional Additional Past Alcohol Use History / Comment(s): HX OF 1/2 PPD SMOKER. Past Drug Use History: None Reported - Past Family History Mother Family Medical History: Diabetes Mellitus Father Family Medical History: Cancer Medications and Allergies Home Medications Medication Instructions Recorded Confirmed Type Empagliflozin [Jardiance] 25 mg PO DAILY 11/09/21 08/25/23 History HYDROcodone/APAP 7.5-325MG [Madison 1 tab PO TID 11/09/21 08/25/23 History 7.5-325] Simvastatin [Zocor] 20 mg PO DAILY 11/09/21 08/25/23 History sitaGLIPtin [Januvia] 100 mg PO DAILY 11/09/21 08/25/23 History Famotidine 20 mg PO BID 07/01/22 08/25/23 History Sevelamer [Renvela] 800 mg PO W/SUPPER 07/01/22 08/25/23 History Ergocalciferol [Vitamin D2 (1250 1,250 mcg PO MO 10/01/22 08/25/23 History Mcg = 61785 Iu)] metFORMIN HCL 1,000 mg PO BID 10/01/22 08/25/23 History Terbinafine [LamISIL] 250 mg PO DAILY 02/05/23 08/25/23 History Furosemide [Lasix] 40 mg PO DAILY 05/14/23 08/25/23 History Multivitamins, Thera [Multivitamin 1 tab PO DAILY 05/14/23 08/25/23 History (formulary)] Pregabalin [Lyrica] 200 mg PO TID 05/14/23 08/25/23 History lisinopriL [Zestril] 20 mg PO DAILY 05/14/23 08/25/23 History Ipratropium-Albuterol Nebulize 3 ml INHALATION RT-QID 90 Days 05/23/23 08/25/23 Rx [Duoneb 0.5 mg-3 mg/3 ml Soln] #360 each Allergies Allergy/AdvReac Type Severity Reaction Status Date / Time No Known Allergies Allergy Verified 08/25/23 18:14 Surgical - Exam Vital Signs Temp Pulse Resp BP Pulse Ox 99.4 F 111 H 20 95/54 95 08/25/23 16:03 08/25/23 16:03 08/25/23 16:03 08/25/23 16:03 08/25/23 16:03 General appearance: The patient is alert, oriented, appears in no acute distress. HET: Head is normocephalic and atraumatic. Pupils are equal and reactive. Neck: Supple. Heart: Regular. Lungs: Equal expansion, normal respiratory effort. Abdomen: Soft, nontender, nondistended. Extremities: Bilateral femoral pulses. Right foot with DP and PT signal. Left lower extremity swelling, with venous stasis and dermatitis. Large diabetic wound to the medial ankle with nonviable tissue, lateral aspect of left foot with large area of fluctuance with bloody appearing fluid. There are 2 wounds to the plantar aspect of his foot. The 1 more proximal to heal is healing of the other is open with drainage. Patient with rocker bottom foot, with swelling and erythema. Neurological: No focal deficits. Alert and oriented x 3. Results - Labs 08/31/23 08:17 09/01/23 04:38 Abnormal Lab Results - Last 24 Hours (Table) 08/31/23 08/31/23 08/31/23 Range/Units 08:17 08:17 11:48 WBC 14.06 H (4.50-10.00) X 10*3/uL RBC 3.99 L (4.40-5.60) X 10*6/uL Hgb 12.1 L (13.0-17.0) g/dL Hct 37.5 L (39.6-50.0) % RDW 14.7 H (11.5-14.5) % Immature Gran # 0.17 H (0.00-0.04) X 10*3/uL Neutrophils # 11.44 H (1.80-7.70) X 10*3/uL Monocytes # 1.19 H (0.20-1.00) X 10*3/uL Eosinophils # 0.01 L (0.04-0.35) X 10*3/uL Sodium 136 L (137-145) mmol/L Chloride 109 H (98-107) mmol/L Carbon Dioxide 19 L (22-30) mmol/L BUN 23 H (9-20) mg/dL Glucose 294 H (74-99) mg/dL POC Glucose (mg/dL) 319 H (70-110) mg/dL Alkaline Phosphatase 137 H (38-126) U/L Total Protein 5.7 L (6.3-8.2) g/dL Albumin 2.3 L (3.5-5.0) g/dL 08/31/23 08/31/23 09/01/23 Range/Units 16:23 20:15 00:01 WBC (4.50-10.00) X 10*3/uL RBC (4.40-5.60) X 10*6/uL Hgb (13.0-17.0) g/dL Hct (39.6-50.0) % RDW (11.5-14.5) % Immature Gran # (0.00-0.04) X 10*3/uL Neutrophils # (1.80-7.70) X 10*3/uL Monocytes # (0.20-1.00) X 10*3/uL Eosinophils # (0.04-0.35) X 10*3/uL Sodium (137-145) mmol/L Chloride (98-107) mmol/L Carbon Dioxide (22-30) mmol/L BUN (9-20) mg/dL Glucose (74-99) mg/dL POC Glucose (mg/dL) 295 H 403 H 395 H (70-110) mg/dL Alkaline Phosphatase (38-126) U/L Total Protein (6.3-8.2) g/dL Albumin (3.5-5.0) g/dL 09/01/23 09/01/23 Range/Units 04:01 07:59 WBC (4.50-10.00) X 10*3/uL RBC (4.40-5.60) X 10*6/uL Hgb (13.0-17.0) g/dL Hct (39.6-50.0) % RDW (11.5-14.5) % Immature Gran # (0.00-0.04) X 10*3/uL Neutrophils # (1.80-7.70) X 10*3/uL Monocytes # (0.20-1.00) X 10*3/uL Eosinophils # (0.04-0.35) X 10*3/uL Sodium (137-145) mmol/L Chloride (98-107) mmol/L Carbon Dioxide (22-30) mmol/L BUN (9-20) mg/dL Glucose (74-99) mg/dL POC Glucose (mg/dL) 266 H 340 H (70-110) mg/dL Alkaline Phosphatase (38-126) U/L Total Protein (6.3-8.2) g/dL Albumin (3.5-5.0) g/dL Microbiology - Last 24 Hours (Table) 08/29/23 07:30 Blood Culture - Preliminary Blood Diabetes panel 08/31/23 09/01/23 Range/Units 08:17 04:38 Sodium 136 L (137-145) mmol/L Potassium 4.6 (3.5-5.1) mmol/L Chloride 109 H (98-107) mmol/L Carbon Dioxide 19 L (22-30) mmol/L BUN 23 H (9-20) mg/dL Creatinine 0.69 0.79 (0.66-1.25) mg/dL Glucose 294 H (74-99) mg/dL Calcium 8.5 (8.4-10.2) mg/dL AST 21 (17-59) U/L ALT 25 (4-49) U/L Alkaline Phosphatase 137 H (38-126) U/L Total Protein 5.7 L (6.3-8.2) g/dL Albumin 2.3 L (3.5-5.0) g/dL Calcium panel 08/31/23 Range/Units 08:17 Calcium 8.5 (8.4-10.2) mg/dL Albumin 2.3 L (3.5-5.0) g/dL Pituitary panel 08/31/23 09/01/23 Range/Units 08:17 04:38 Sodium 136 L (137-145) mmol/L Potassium 4.6 (3.5-5.1) mmol/L Chloride 109 H (98-107) mmol/L Carbon Dioxide 19 L (22-30) mmol/L BUN 23 H (9-20) mg/dL Creatinine 0.69 0.79 (0.66-1.25) mg/dL Glucose 294 H (74-99) mg/dL Calcium 8.5 (8.4-10.2) mg/dL Adrenal panel 08/31/23 09/01/23 Range/Units 08:17 04:38 Sodium 136 L (137-145) mmol/L Potassium 4.6 (3.5-5.1) mmol/L Chloride 109 H (98-107) mmol/L Carbon Dioxide 19 L (22-30) mmol/L BUN 23 H (9-20) mg/dL Creatinine 0.69 0.79 (0.66-1.25) mg/dL Glucose 294 H (74-99) mg/dL Calcium 8.5 (8.4-10.2) mg/dL Total Bilirubin 0.4 (0.2-1.3) mg/dL AST 21 (17-59) U/L ALT 25 (4-49) U/L Alkaline Phosphatase 137 H (38-126) U/L Total Protein 5.7 L (6.3-8.2) g/dL Albumin 2.3 L (3.5-5.0) g/dL - Imaging Comments: Left foot x-ray independently reviewed by Dr. Lorenzo showing gas and air. Report states diffuse swelling of the foot with collapse of the arch of the foot with subcutaneous gas throughout the foot. Findings concerning for cellulitis with underlying abscess not entirely excluded. Multiple ulcers are seen along the plantar surface of the foot. Consider MRI for further evaluation of osteomyelitis. No osseous erosion definitively visualized. Assessment and Plan Assessment: 1. Left foot with multiple chronic infected diabetic wounds with air/gas seen on x-ray 2. Diabetes mellitus 3. Mildly elevated LFTs 4. Hypertension 5. Hyperlipidemia (1) Elevated LFTs Current Visit: Yes Status: Acute Code(s): R79.89 - OTHER SPECIFIED ABNORMAL FINDINGS OF BLOOD CHEMISTRY SNOMED Code(s): 653615532 (2) Diabetes mellitus Current Visit: Yes Status: Acute Code(s): E11.9 - TYPE 2 DIABETES MELLITUS WITHOUT COMPLICATIONS SNOMED Code(s): 52530137 (3) Diabetic infection of left foot Current Visit: No Status: Acute Code(s): E11.628 - TYPE 2 DIABETES MELLITUS WITH OTHER SKIN COMPLICATIONS; L08.9 - LOCAL INFECTION OF THE SKIN AND SUBCUTANEOUS TISSUE, UNSP SNOMED Code(s): 64640376 Plan: 1. Continue symptomatic supportive care 2. Continue antibiotics per recommendation from infectious disease 3. Continue local wound care per wound clinic recommendations 4. Patient states he is now agreeable to left below the knee amputation 5. Patient is tentatively scheduled for 09/03/2023 for left below the knee amputation 6. Medical management per primary medical physician Thank you for this consultation, we will continue to follow. The impression and plan of care has been dictated as directed. I performed a history and examination of this patient, discussed the same with the dictator. I agree with the dictator's note ,documented as a scribe. Any additional findings or plans will be noted.
[2023-09-01 11:48] LABS: Glucose,Whole Blood 337 mg/dL (70-110)
[2023-09-01 12:06] VITALS: BMI 30.1
[2023-09-01 16:37] LABS: Glucose,Whole Blood 379 mg/dL (70-110)
[2023-09-01 20:28] LABS: Glucose,Whole Blood >600 mg/dL (70-110)
[2023-09-01 20:28] LABS: Glucose,Whole Blood 512 mg/dL (70-110)
--- NOTE | 2023-09-01 21:38 | P.PN ---
Subjective Progress Note Date: 09/01/23 Principal diagnosis: Reason for follow-up is sepsis left diabetic foot infection and bacteremia Patient is a 52-year-old male with a past medical history significant for diabetes mellitus hypertension hyperlipidemia and this patient who did have a history of left diabetic foot infection with an abscess s/p surgical drainage back in April 2023 with a culture grew MRSA Enterococcus faecalis and anaerobes for the patient has completed more than 8 weeks of IV antibiotic therapy and the patient was following at [facility], patient has been brought back to the hospital concerning for worsening left foot wound swelling and redness patient was noticed to be septic related to extensive left diabetic foot infection and did have bacteremia. On today's evaluation that is 09/01/2023, the patient continues to be afebrile, the patient is on room air and breathing comfortably, the Pt denies having any chest pain or cough, the patient denies having any abdominal pain no vomiting or any diarrhea has been reported by the nursing staff denies any worsening pain to the left lower extremity. No new labs has been obtained today except creatinine 0.79 Objective - Vital Signs Vital signs: Vital Signs Temp 99.3 F 09/01/23 07:47 Pulse 78 09/01/23 07:51 Resp 13 09/01/23 07:51 BP 119/68 09/01/23 07:47 Pulse Ox 96 09/01/23 07:47 FiO2 Intake & Output 08/31/23 09/01/23 09/01/23 18:59 06:59 18:59 Intake Total 600 Balance 600 Weight 97.976 kg Intake: Intake, IV Titration 600 Amount Cefepime 2 gm In Sodium 100 Chloride 0.9% 100 ml @ 25 mls/hr IVPB Q8HR CARL Rx# :[id number] Vancomycin 1,500 mg In 500 Sodium Chloride 0.9% 500 ml 500 ml @ 167 mls/hr IVPB Q12HR CARL Rx#: [id number] Other: Voiding Method Toilet # Voids 2 4 3 # Bowel Movements 1 - Exam GENERAL DESCRIPTION: Middle-age male lying in bed in no distress RESPIRATORY SYSTEM: Unlabored breathing , decreased breath sounds at bases HEART: S1 S2 regular rate and rhythm , ABDOMEN: Soft , no tenderness EXTREMITIES: Left foot with swelling and redness did have extensive wound on the medial as well as lateral aspect and the plantar aspect - Labs CBC & Chem 7: 08/31/23 08:17 09/01/23 04:38 Labs: Abnormal Lab Results - Last 24 Hours (Table) 08/31/23 09/01/23 09/01/23 Range/Units 20:15 00:01 04:01 POC Glucose (mg/dL) 403 H 395 H 266 H (70-110) mg/dL 09/01/23 09/01/23 09/01/23 Range/Units 07:59 11:47 16:35 POC Glucose (mg/dL) 340 H 337 H 379 H (70-110) mg/dL Microbiology - Last 24 Hours (Table) 08/29/23 07:30 Blood Culture - Preliminary Blood Assessment and Plan (1) Bacteremia Current Visit: Yes Status: Acute Code(s): R78.81 - BACTEREMIA SNOMED Code(s): 1070061 (2) Diabetes with skin ulcer Current Visit: No Status: Acute Code(s): E11.622 - TYPE 2 DIABETES MELLITUS WITH OTHER SKIN ULCER; L98.499 - NON-PRESSURE CHRONIC ULCER OF SKIN OF SITES W UNSP SEVERITY SNOMED Code(s): 51353998 (3) Diabetic infection of left foot Current Visit: No Status: Acute Code(s): E11.628 - TYPE 2 DIABETES MELLITUS WITH OTHER SKIN COMPLICATIONS; L08.9 - LOCAL INFECTION OF THE SKIN AND SUBCUTANEOUS TISSUE, UNSP SNOMED Code(s): 13770541 Plan: 1patient presented to hospital with sepsis in this patient who did have low- grade fever elevated white count source is extensive infection of left foot and this patient with underlying diabetes patient did have evidence of abscess on the basis of her plain x-rays and operative wound on the medial aspect of the right ankle area 2-patient with polymicrobial bacteremia source is likely extensive left diabetic foot infection 3-blood culture previously reported as MSSA has been switched to MRSA, repeat blood culture has been negative 4--patient did have extensive infection of the left lower extremity will benefit from left below the knee amputation , vascular surgery has evaluated patient this morning await left below-knee amputation 5-patient to continue vancomycin along with cefepime and watch his kidney function closely Dictation was produced using [employer] dictation software. please excuse any grammatical, word or spelling errors. Time with Patient: Less than 30
[2023-09-02 00:29] LABS: Glucose,Whole Blood 529 mg/dL (70-110)
[2023-09-02 00:29] LABS: Glucose,Whole Blood 512 mg/dL (70-110)
[2023-09-02 04:34] LABS: Glucose,Whole Blood 304 mg/dL (70-110)
[2023-09-02 06:11] LABS: African American GFR (CKD) >90 (>60 ml/min/1.73 sqM); Non-African American GFR(CKD) >90 (>60 ml/min/1.73 sqM)
[2023-09-02] MEDS: INSULIN DETEMIR (LEVEMIR) 100 UNIT/ML SYR SQ SCH (06:44)
[2023-09-02 08:07] LABS: Glucose,Whole Blood 235 mg/dL (70-110)
--- NOTE | 2023-09-02 08:08 | PN ---
PROGRESS NOTE HISTORY OF PRESENT ILLNESS: This is a 52-year-old white male. OBJECTIVE: VITAL SIGNS: Blood pressure 120/71, O2 of 91% on room air, temp 99.4, pulse 84, and respiratory rate 16 to 18. CARDIOVASCULAR: S1, S2. LUNGS: Transmitted upper airway sounds. GI: Soft. Sugars are 300 to 500. We are going to stop any Solu-Medrol, increase his medications for diabetes at this point. Continue on current treatments. Prognosis guarded. He is on vancomycin or cefepime for drug-resistant UTI and severe diabetic wound infections, and he is going to amputation on one side. Chest was COPD. Diabetes, diabetic wound infection. Prognosis guarded. Please see further orders. surgery scheduled for Friday. MMPIETROL / IJN: [id number] /
--- NOTE | 2023-09-02 09:56 | P.PN ---
Subjective Progress Note Date: 09/02/23 Principal diagnosis: Elevated LFTs Patient seen and examined today as a follow-up. He was resting comfortably. He is scheduled to tomorrow for left below the knee amputation. Patient is still agreeable to proceed. He has been afebrile. He remains on IV antibiotics with infectious disease following. Repeat blood cultures with no growth. Patient's blood sugars have not been well-controlled during this hospitalization running in the 200s to 500s. Patient denies any shortness of breath, chest pain, abdominal pain, nausea or vomiting. Pain to the left lower extremity. Dressing in place with drainage noted. Objective - Vital Signs Vital signs: Vital Signs Temp 100.0 F H 09/02/23 07:33 Pulse 81 09/02/23 07:33 Resp 19 09/02/23 07:33 BP 113/65 09/02/23 07:33 Pulse Ox 93 L 09/02/23 07:33 FiO2 Intake & Output 09/01/23 09/02/23 09/02/23 18:59 06:59 18:59 Weight 97.976 kg Other: Voiding Method Toilet Toilet # Voids 3 10 - Exam General appearance: The patient is alert, oriented, appears in no acute distress. HET: Head is normocephalic and atraumatic. Conjunctiva pink. Sclera anicteric. Neck: Supple without lymphadenopathy. Abdomen: Soft, nontender, nondistended with bowel sounds. No guarding or rigi dity. Extremities: Left lower extremity swelling, venous stasis. Left foot with dressing with drainage. Skin: No rashes, no jaundice Neurological: No focal deficits. Alert and oriented. - Labs CBC & Chem 7: 08/31/23 08:17 09/02/23 04:51 Labs: Abnormal Lab Results - Last 24 Hours (Table) 09/01/23 09/01/23 09/01/23 Range/Units 11:47 16:35 20:25 POC Glucose (mg/dL) 337 H 379 H >600 H (70-110) mg/dL 09/01/23 09/02/23 09/02/23 Range/Units 20:27 00:26 00:27 POC Glucose (mg/dL) 512 H 529 H 512 H (70-110) mg/dL 09/02/23 09/02/23 Range/Units 04:33 08:05 POC Glucose (mg/dL) 304 H 235 H (70-110) mg/dL Microbiology - Last 24 Hours (Table) 08/27/23 16:24 Blood Culture - Final Blood 08/29/23 07:30 Blood Culture - Preliminary Blood Assessment and Plan Assessment: 1. Left foot with multiple chronic infected diabetic wounds with air/gas seen on x-ray 2. Diabetes mellitus 3. Hyperglycemia 4. Hypertension 5. Hyperlipidemia (1) Elevated LFTs Current Visit: Yes Status: Acute Code(s): R79.89 - OTHER SPECIFIED ABNORMAL FINDINGS OF BLOOD CHEMISTRY SNOMED Code(s): 983458097 (2) Diabetes mellitus Current Visit: Yes Status: Acute Code(s): E11.9 - TYPE 2 DIABETES MELLITUS WITHOUT COMPLICATIONS SNOMED Code(s): 53479823 (3) Diabetic infection of left foot Current Visit: No Status: Acute Code(s): E11.628 - TYPE 2 DIABETES MELLITUS WITH OTHER SKIN COMPLICATIONS; L08.9 - LOCAL INFECTION OF THE SKIN AND SUBCUTANEOUS TISSUE, UNSP SNOMED Code(s): 42150774 Plan: 1. Continue symptomatic supportive care 2. Continue antibiotics per recommendation from infectious disease 3. Continue local wound care per wound clinic recommendations 4. Recommend strict glycemic control 5. Patient is scheduled for 09/03/2023 for left below the knee amputation 6. Medical management per primary medical physician Thank you for this consultation, we will continue to follow. The impression and plan of care has been dictated as directed. Dr. Lorenzo I performed a history and examination of this patient, discussed the same with the dictator. I agree with the dictator's note ,documented as a scribe. Any additional findings or plans will be noted.
[2023-09-02 11:34] LABS: Glucose,Whole Blood 225 mg/dL (70-110)
[2023-09-02 16:03] LABS: Glucose,Whole Blood 283 mg/dL (70-110)
[2023-09-02 21:13] LABS: Glucose,Whole Blood 362 mg/dL (70-110)
[2023-09-02 23:57] LABS: Glucose,Whole Blood 316 mg/dL (70-110)
[2023-09-03 03:38] LABS: Glucose,Whole Blood 175 mg/dL (70-110)
[2023-09-03] MEDS: SODIUM CHLORIDE 0.9% 1,000 ML IV SCH (06:42)
[2023-09-03 08:25] LABS: Glucose,Whole Blood 252 mg/dL (70-110)
[2023-09-03] MEDS: VANCOMYCIN TROUGH DUE 1 EACH MISC MISCELLANE ONE (11:05)
[2023-09-03 11:14] LABS: HCT 39.4 % (39.0-53.0); HGB 12.5 gm/dL (13.0-17.5); Hypochromasia Slight; MCH 30.9 pg (25.0-35.0); MCHC 31.7 g/dL (31.0-37.0); MCV 97.5 fL (80.0-100.0); Mean Platelet Volume 8.3; Platelet Count 299 k/uL (150-450); RBC 4.04 m/uL (4.30-5.90); RDW 14.6 % (11.5-15.5); WBC 11.9 k/uL (3.8-10.6)
[2023-09-03 12:17] LABS: Glucose,Whole Blood 204 mg/dL (70-110)
[2023-09-03 12:28] LABS: African American GFR (CKD) >90 (>60 ml/min/1.73 sqM); Anion Gap 4 mmol/L; Blood Urea Nitrogen 23 mg/dL (9-20); Calcium 8.9 mg/dL (8.4-10.2); Carbon Dioxide 23 mmol/L (22-30); Chloride 109 mmol/L (98-107); Glucose 243 mg/dL (74-99); Non-African American GFR(CKD) >90 (>60 ml/min/1.73 sqM); Potassium 4.7 mmol/L (3.5-5.1); Sodium 136 mmol/L (137-145)
[2023-09-03] MEDS: LACTATED RINGERS 1,000 ML IV ONE ×2 (13:44→17:19)
[2023-09-03 13:58] LABS: Glucose,Whole Blood 217 mg/dL (70-110)
[2023-09-03] MEDS: ONDANSETRON 4 MG/2 ML VIAL IVP ONE (14:02)
[2023-09-03] MEDS: INSULIN ASPART (NovoLOG) 100 UNIT/ML VIAL SQ ONE (14:02)
[2023-09-03] MEDS ORDERED: HYDROmorphone (PF) 1 MG/ML ONE (14:39)
[2023-09-03] MEDS ORDERED: fentaNYL (PF) 50 MCG/ML 2 ML AMP ONE (14:39)
[2023-09-03] MEDS ORDERED: GLYCOPYRROLATE 0.2 MG/ML 2 ML VIAL ONE (14:39)
[2023-09-03] MEDS ORDERED: PHENYLEPHRINE-0.9% NACL SYG 1,000 MCG/10 ML SYRINGE ONE (14:39)
[2023-09-03] MEDS ORDERED: MIDAZOLAM 2 MG/2 ML VIAL ONE (14:39)
[2023-09-03] MEDS ORDERED: PROPOFOL 10 MG/ML 20 ML VIAL IV ONE (14:39)
[2023-09-03] MEDS ORDERED: ePHEDrine 50 MG/ML 1 ML VIAL ONE (14:39)
[2023-09-03] MEDS ORDERED: ROCURONIUM 10 MG/ML (5 ML VIAL) IV ONE (14:39)
[2023-09-03] MEDS ORDERED: LIDOCAINE 1% INJ 10MG/ML (20 ML MDV) ONE (14:39)
[2023-09-03] MEDS ORDERED: KETAMINE HCL IN 0.9 % NACL 50 MG/5 ML SYRINGE ONE (14:39)
[2023-09-03] MEDS ORDERED: SUCCINYLCHOLINE CHLORIDE 200 MG/10 ML VIAL IV ONE (14:39)
[2023-09-03] MEDS ORDERED: NEOSTIGMINE 1 MG/ML 10 ML VIAL ONE (14:39)
--- NOTE | 2023-09-03 16:14 | P.OP ---
Date of Procedure: 09/03/23 Description of Procedure: PREOPERATIVE DIAGNOSIS: Chronic left lower extremity infected wound, Charcot foot. POSTOPERATIVE DIAGNOSIS: Same. OPERATION: Left below knee amputation. SURGEON: Ivonne Domínguez DO MONUMENT LETTERER: Eva Herring. ANESTHESIA: General endotracheal ESTIMATED BLOOD LOSS: 75 cc SPECIMENS REMOVED: Left lower extremity for disposal COMPLICATIONS: None immediately apparent CONDITION: Stable to recovery FINDINGS AND INDICATIONS: Patient is a 52-year-old male with chronic nonhealing wound with infection of his left lower extremity and Charcot foot. In the past he had refused amputation however this time due to the foot and timing he is willing to undergo. Risk and benefits of been discussed include but not limited to bleeding, infection, poor wound healing. He seemed understood and was willing to proceed. PROCEDURE IN DETAIL: The patient was brought to the operating room, the operative leg was prepped and draped in the usual sterile manner. 10 cm below the tibial plateau was marked. The calf circumference was measured. Two thirds was utilized for the anterior incision, one third was utilized to create the flap. The incision was marked. The incision was deepened through the subcutaneous tissue and fascia to the level of the bone. The fascia was transected around the level of the incision. Anterior compartment muscles were divided and visualized to the tibial vessels which were suture ligated with 2-0 silk. Then the lateral compartment muscles were divided. Dissection was carried down to the level of the bone. The periosteal elevator was used and the tibia was freed from its periosteal tissues. The tibia was divided with an oscillating saw. The same was done of the fibula, approximately 1-1/2-2 cm more proximal to the tibia itself. The posterior flap was created with an amputation knife. Bleeding was controlled with suture ligation of the vessels. Electrocautery was also used for hemostasis. The specimen was removed. The wound was copiously irrigated. The tibia and fibula were smoothed with a rasp. 2-0 and 3-0 Vicryl was utilized to approximate the fascia. The skin was reapproximated with griselda. The incsion was cleansed and a dressing was placed. The patient was extubated and transferred to PACU in stable condition having tolerated the procedure well
[2023-09-03 16:16] LABS: Glucose,Whole Blood 187 mg/dL (70-110)
[2023-09-03 17:48] LABS: Glucose,Whole Blood 237 mg/dL (70-110)
[2023-09-03] MEDS: HYDROmorphone 0.5 MG/0.5 ML SYRINGE IVP PRN (17:51)
[2023-09-03] MEDS ORDERED: HYDROmorphone 1 MG/ML 1 ML SYRINGE IM PRN (18:23)
[2023-09-03] MEDS: HYDROmorphone 0.5 MG/0.5 ML SYRINGE IVP STA (18:27)
[2023-09-03] MEDS: DEXAMETHASONE SOD PHOSPHATE 4 MG/ML 1 ML VIAL IV ONE (18:31)
[2023-09-03] MEDS: LACTATED RINGERS 1,000 ML IV SCH (19:17)
[2023-09-03 21:14] LABS: Glucose,Whole Blood 338 mg/dL (70-110)
[2023-09-03] MEDS: HYDROmorphone 1 MG/ML 1 ML SYRINGE IVP PRN (21:22)
--- NOTE | 2023-09-04 00:07 | PN ---
PROGRESS NOTE SUBJECTIVE: This is a 52-year-old with a right foot infection. OBJECTIVE: CARDIOVASCULAR: S1, S2. LUNGS: Clear. GI: Soft. EXTREMITIES: He is status post amputation. VITAL SIGNS: Pulse is low 100, temp 97.6, respiratory rate 16 to 18, blood pressure is 120/60s, and 92 on room air. He is in a lot of pain. We increased his pain medicine this afternoon. We will have to keep on oxygen 2 L at this point. Continue on breathing treatments. He had MRSA in the blood. Blood cultures and Proteus mirabilis. Repeat culture so far negative. He had below-knee amputation of the left leg today for severe diabetic foot infection, gangrene, pain control. At this point, continue his breathing treatments, oxygen. Please see further orders. MMODL / IJN: [id number] /
[2023-09-04 00:08] LABS: Glucose,Whole Blood 314 mg/dL (70-110)
[2023-09-04 04:07] LABS: Glucose,Whole Blood 267 mg/dL (70-110)
[2023-09-04 08:20] LABS: Glucose,Whole Blood 218 mg/dL (70-110)
[2023-09-04 08:22] LABS: African American GFR (CKD) >90 (>60 ml/min/1.73 sqM); Non-African American GFR(CKD) >90 (>60 ml/min/1.73 sqM)
[2023-09-04] MEDS: VANCOMYCIN TROUGH DUE 1 EACH MISC MISCELLANE ONE (10:29)
--- NOTE | 2023-09-04 10:54 | P.PN ---
Subjective Progress Note Date: 09/04/23 Principal diagnosis: Elevated LFTs Patient is seen and examined today as a follow-up. He is postop day #1 for left below the knee amputation. Patient states he does have some pain but it has been well-managed. He has knee immobilizer in place. Apparently he had difficulty urinating after surgery, he had a bladder scan with approximately 600 cc noted, patient was encouraged to try to use the urinal however he was refusing. Nursing recommended straight catheterization and he had refused that as well. This morning he was currently getting straight cath and had 800 mL out yellow urine. He remains afebrile. He continues on IV antibiotics with infectious disease following. His repeat blood cultures had no growth at 5 days. Objective - Vital Signs Vital signs: Vital Signs Temp 98.0 F 09/04/23 07:36 Pulse 81 09/04/23 07:36 Resp 17 09/04/23 07:36 BP 100/56 09/04/23 07:36 Pulse Ox 93 L 09/04/23 07:36 FiO2 Intake & Output 09/03/23 09/04/23 09/04/23 18:59 06:59 18:59 Intake Total 1000 Output Total 75 0 Balance 925 0 Intake: IV 1000 Output: Urine 0 Estimated Blood Loss 75 Other: Voiding Method Toilet # Voids 6 0 - Exam General appearance: The patient is alert, oriented, appears in no acute distress. HET: Head is normocephalic and atraumatic. Conjunctiva pink. Sclera anicteric. Neck: Supple without lymphadenopathy. Abdomen: Soft, nondistended. Extremities: Left lower extremity with dressing clean dry and intact, knee immobilizer in place. Skin: No rashes, no jaundice Neurological: No focal deficits. Alert and oriented. - Labs CBC & Chem 7: 09/03/23 10:54 09/04/23 07:40 Labs: Abnormal Lab Results - Last 24 Hours (Table) 09/03/23 09/03/23 09/03/23 Range/Units 10:54 10:54 10:54 WBC 11.9 H (3.8-10.6) k/uL RBC 4.04 L (4.30-5.90) m/uL Hgb 12.5 L (13.0-17.5) gm/dL Sodium 136 L (137-145) mmol/L Chloride 109 H (98-107) mmol/L BUN 23 H (9-20) mg/dL Creatinine 0.58 L (0.66-1.25) mg/dL Glucose 243 H (74-99) mg/dL POC Glucose (mg/dL) (70-110) mg/dL Vancomycin Trough 35.6 H* ug/mL 09/03/23 09/03/23 09/03/23 Range/Units 12:15 13:57 16:15 WBC (3.8-10.6) k/uL RBC (4.30-5.90) m/uL Hgb (13.0-17.5) gm/dL Sodium (137-145) mmol/L Chloride (98-107) mmol/L BUN (9-20) mg/dL Creatinine (0.66-1.25) mg/dL Glucose (74-99) mg/dL POC Glucose (mg/dL) 204 H 217 H 187 H (70-110) mg/dL Vancomycin Trough ug/mL 09/03/23 09/03/23 09/04/23 Range/Units 17:46 21:12 00:06 WBC (3.8-10.6) k/uL RBC (4.30-5.90) m/uL Hgb (13.0-17.5) gm/dL Sodium (137-145) mmol/L Chloride (98-107) mmol/L BUN (9-20) mg/dL Creatinine (0.66-1.25) mg/dL Glucose (74-99) mg/dL POC Glucose (mg/dL) 237 H 338 H 314 H (70-110) mg/dL Vancomycin Trough ug/mL 09/04/23 09/04/23 Range/Units 04:05 08:18 WBC (3.8-10.6) k/uL RBC (4.30-5.90) m/uL Hgb (13.0-17.5) gm/dL Sodium (137-145) mmol/L Chloride (98-107) mmol/L BUN (9-20) mg/dL Creatinine (0.66-1.25) mg/dL Glucose (74-99) mg/dL POC Glucose (mg/dL) 267 H 218 H (70-110) mg/dL Vancomycin Trough ug/mL Microbiology - Last 24 Hours (Table) 08/29/23 07:30 Blood Culture - Final Blood Assessment and Plan Assessment: 1. Left foot infected chronic wounds status post left below the knee amputation 2. Diabetes mellitus 3. Hyperglycemia 4. Hypertension 5. Hyperlipidemia (1) Elevated LFTs Current Visit: Yes Status: Acute Code(s): R79.89 - OTHER SPECIFIED ABNORMAL FINDINGS OF BLOOD CHEMISTRY SNOMED Code(s): 538980786 (2) Diabetes mellitus Current Visit: Yes Status: Acute Code(s): E11.9 - TYPE 2 DIABETES MELLITUS WITHOUT COMPLICATIONS SNOMED Code(s): 45596123 (3) Diabetic infection of left foot Current Visit: No Status: Acute Code(s): E11.628 - TYPE 2 DIABETES MELLITUS WITH OTHER SKIN COMPLICATIONS; L08.9 - LOCAL INFECTION OF THE SKIN AND SUBCUTANEOUS TISSUE, UNSP SNOMED Code(s): 33294251 Plan: 1. Continue symptomatic supportive care 2. Continue with recommendations from infectious disease 3. PICC line ordered by infectious disease, will be placed today 4. Recommend strict glycemic control 5. Keep knee immobilizer in place. Discussed with patient importance of knee immobilizer 6. 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 Keep dressing in place for today. Will plan for dressing change tomorrow. 8. Consult to physical therapy, and recommend subacute rehab on discharge 9. Anticipate discharge in the next 24 hours Thank you for this consultation, we will continue to follow. The impression and plan of care has been dictated as directed. Dr. Domínguez I performed a history and examination of this patient, discussed the same with the dictator. I agree with the dictator's note ,documented as a scribe. Any additional findings or plans will be noted.
[2023-09-04 12:11] LABS: Glucose,Whole Blood 268 mg/dL (70-110)
[2023-09-04 13:10] LABS: HCT 34.2 % (39.0-53.0); HGB 10.6 gm/dL (13.0-17.5); Hypochromasia Moderate; MCH 30.7 pg (25.0-35.0); MCHC 30.9 g/dL (31.0-37.0); MCV 99.3 fL (80.0-100.0); Mean Platelet Volume 8.6; Platelet Count 285 k/uL (150-450); RBC 3.44 m/uL (4.30-5.90); RDW 14.5 % (11.5-15.5); WBC 12.5 k/uL (3.8-10.6)
--- NOTE | 2023-09-04 15:57 | P.PN ---
Subjective Progress Note Date: 09/02/23 Principal diagnosis: Reason for follow-up is sepsis left diabetic foot infection and bacteremia Patient is a 52-year-old male with a past medical history significant for diabetes mellitus hypertension hyperlipidemia and this patient who did have a history of left diabetic foot infection with an abscess s/p surgical drainage back in April 2023 with a culture grew MRSA Enterococcus faecalis and anaerobes for the patient has completed more than 8 weeks of IV antibiotic therapy and the patient was following at [facility], patient has been brought back to the hospital concerning for worsening left foot wound swelling and redness patient was noticed to be septic related to extensive left diabetic foot infection and did have bacteremia. On today's evaluation that is 09/02/2023, Patient is afebrile patient is currently on room air and denies having any shortness of breath, the patient denies any chest pain or cough, the patient denies any nausea vomiting did not have any abdominal pain and no diarrhea denies any worsening pain to the left foot and leg area. Patient did have a creatinine 0.68 no CBC was done today Objective - Vital Signs Vital signs: Vital Signs Temp 100.0 F H 09/02/23 07:33 Pulse 81 09/02/23 07:50 Resp 19 09/02/23 07:50 BP 113/65 09/02/23 07:33 Pulse Ox 93 L 09/02/23 07:33 FiO2 Intake & Output 09/01/23 09/02/23 09/02/23 18:59 06:59 18:59 Weight 97.976 kg Other: Voiding Method Toilet Toilet Toilet # Voids 3 10 - Exam GENERAL DESCRIPTION: Middle-age male lying in bed in no distress RESPIRATORY SYSTEM: Unlabored breathing , decreased breath sounds at bases HEART: S1 S2 regular rate and rhythm , ABDOMEN: Soft , no tenderness EXTREMITIES: Left foot with swelling and redness did have extensive wound on the medial as well as lateral aspect and the plantar aspect - Labs CBC & Chem 7: 09/04/23 11:45 09/04/23 07:40 Labs: Abnormal Lab Results - Last 24 Hours (Table) 09/01/23 09/01/23 09/01/23 Range/Units 16:35 20:25 20:27 POC Glucose (mg/dL) 379 H >600 H 512 H (70-110) mg/dL 09/02/23 09/02/23 09/02/23 Range/Units 00:26 00:27 04:33 POC Glucose (mg/dL) 529 H 512 H 304 H (70-110) mg/dL 09/02/23 09/02/23 Range/Units 08:05 11:32 POC Glucose (mg/dL) 235 H 225 H (70-110) mg/dL Microbiology - Last 24 Hours (Table) 08/27/23 16:24 Blood Culture - Final Blood 08/29/23 07:30 Blood Culture - Preliminary Blood Assessment and Plan (1) Bacteremia Current Visit: Yes Status: Acute Code(s): R78.81 - BACTEREMIA SNOMED Code(s): 4298270 (2) Diabetes with skin ulcer Current Visit: No Status: Acute Code(s): E11.622 - TYPE 2 DIABETES MELLITUS WITH OTHER SKIN ULCER; L98.499 - NON-PRESSURE CHRONIC ULCER OF SKIN OF SITES W UNSP SEVERITY SNOMED Code(s): 48455694 (3) Diabetic infection of left foot Current Visit: No Status: Acute Code(s): E11.628 - TYPE 2 DIABETES MELLITUS WITH OTHER SKIN COMPLICATIONS; L08.9 - LOCAL INFECTION OF THE SKIN AND SUBCUTANE OUS TISSUE, UNSP SNOMED Code(s): 81002872 Plan: 1patient presented to hospital with sepsis in this patient who did have low- grade fever elevated white count source is extensive infection of left foot and this patient with underlying diabetes patient did have evidence of abscess on the basis of her plain x-rays and operative wound on the medial aspect of the right ankle area 2-patient with polymicrobial bacteremia source is likely extensive left diabetic foot infection 3-blood culture previously reported as MSSA has been switched to MRSA, repeat blood culture has been negative 4--patient did have extensive infection of the left lower extremity will benefit from left below the knee amputation , vascular surgery has evaluated patient and plan is for left BKA scheduled for tomorrow 5-patient to continue vancomycin along with cefepime and monitor clinical course closely Dictation was produced using [employer] dictation software. please excuse any grammatical, word or spelling errors. Time with Patient: Less than 30
--- NOTE | 2023-09-04 15:58 | P.PN ---
Subjective Progress Note Date: 09/03/23 Principal diagnosis: Reason for follow-up is sepsis left diabetic foot infection and bacteremia Patient is a 52-year-old male with a past medical history significant for diabetes mellitus hypertension hyperlipidemia and this patient who did have a history of left diabetic foot infection with an abscess s/p surgical drainage back in April 2023 with a culture grew MRSA Enterococcus faecalis and anaerobes for the patient has completed more than 8 weeks of IV antibiotic therapy and the patient was following at [facility], patient has been brought back to the hospital concerning for worsening left foot wound swelling and redness patient was noticed to be septic related to extensive left diabetic foot infection and did have bacteremia.Patient is status post left below the knee amputation completed afternoon of 09/03/2023 on today's evaluation that is 09/03/2023, patient has been afebrile, patient is breathing comfortably and is currently on 2 L nasal cannula oxygen some pain and discomfort to the left BKA stump patient denies having any significant cough no chest pain shortness of breath, patient denies nausea vomiting or diarrhea and no abdominal pain Patient did have white count of 11.8, creatinine 0.58 Vanco trough was elevated Objective - Vital Signs Vital signs: Vital Signs Temp 99.3 F 09/03/23 16:10 Pulse 103 H 09/03/23 16:40 Resp 17 09/03/23 16:40 BP 136/60 09/03/23 16:40 Pulse Ox 96 09/03/23 16:40 FiO2 Intake & Output 09/02/23 09/03/23 09/03/23 18:59 06:59 18:59 Intake Total 700 Output Total 75 Balance 625 Intake: IV 700 Output: Estimated Blood Loss 75 Other: Voiding Method Toilet Toilet # Voids 6 1 - Exam GENERAL DESCRIPTION: Middle-age male lying in bed in no distress RESPIRATORY SYSTEM: Unlabored breathing , decreased breath sounds at bases HEART: S1 S2 regular rate and rhythm , ABDOMEN: Soft , no tenderness EXTREMITIES: LBKA stump is currently dressed - Labs CBC & Chem 7: 09/04/23 11:45 09/04/23 07:40 Labs: Abnormal Lab Results - Last 24 Hours (Table) 09/02/23 09/02/23 09/03/23 Range/Units 21:11 23:56 03:36 WBC (3.8-10.6) k/uL RBC (4.30-5.90) m/uL Hgb (13.0-17.5) gm/dL Sodium (137-145) mmol/L Chloride (98-107) mmol/L BUN (9-20) mg/dL Creatinine (0.66-1.25) mg/dL Glucose (74-99) mg/dL POC Glucose (mg/dL) 362 H 316 H 175 H (70-110) mg/dL Vancomycin Trough ug/mL 09/03/23 09/03/23 09/03/23 Range/Units 08:23 10:54 10:54 WBC (3.8-10.6) k/uL RBC (4.30-5.90) m/uL Hgb (13.0-17.5) gm/dL Sodium 136 L (137-145) mmol/L Chloride 109 H (98-107) mmol/L BUN 23 H (9-20) mg/dL Creatinine 0.58 L (0.66-1.25) mg/dL Glucose 243 H (74-99) mg/dL POC Glucose (mg/dL) 252 H (70-110) mg/dL Vancomycin Trough 35.6 H* ug/mL 09/03/23 09/03/23 09/03/23 Range/Units 10:54 12:15 13:57 WBC 11.9 H (3.8-10.6) k/uL RBC 4.04 L (4.30-5.90) m/uL Hgb 12.5 L (13.0-17.5) gm/dL Sodium (137-145) mmol/L Chloride (98-107) mmol/L BUN (9-20) mg/dL Creatinine (0.66-1.25) mg/dL Glucose (74-99) mg/dL POC Glucose (mg/dL) 204 H 217 H (70-110) mg/dL Vancomycin Trough ug/mL 09/03/23 Range/Units 16:15 WBC (3.8-10.6) k/uL RBC (4.30-5.90) m/uL Hgb (13.0-17.5) gm/dL Sodium (137-145) mmol/L Chloride (98-107) mmol/L BUN (9-20) mg/dL Creatinine (0.66-1.25) mg/dL Glucose (74-99) mg/dL POC Glucose (mg/dL) 187 H (70-110) mg/dL Vancomycin Trough ug/mL Microbiology - Last 24 Hours (Table) 08/29/23 07:30 Blood Culture - Final Blood Assessment and Plan (1) Bacteremia Current Visit: Yes Status: Acute Code(s): R78.81 - BACTEREMIA SNOMED Code (s): 4944564 (2) Diabetes with skin ulcer Current Visit: No Status: Acute Code(s): E11.622 - TYPE 2 DIABETES MELLITUS WITH OTHER SKIN ULCER; L98.499 - NON-PRESSURE CHRONIC ULCER OF SKIN OF SITES W UNSP SEVERITY SNOMED Code(s): 45243174 (3) Diabetic infection of left foot Current Visit: No Status: Acute Code(s): E11.628 - TYPE 2 DIABETES MELLITUS WITH OTHER SKIN COMPLICATIONS; L08.9 - LOCAL INFECTION OF THE SKIN AND SUBCUTANEOUS TISSUE, UNSP SNOMED Code(s): 25829485 Plan: 1patient presented to hospital with sepsis in this patient who did have low- grade fever elevated white count source is extensive infection of left foot and this patient with underlying diabetes patient did have evidence of abscess on the basis of her plain x-rays and operative wound on the medial aspect of the right ankle area 2-patient with polymicrobial bacteremia source is likely extensive left diabetic foot infection 3-blood culture previously reported as MSSA has been switched to MRSA, repeat blood culture has been negative 4--patient did have extensive infection of the left lower extremity will benefit from left below the knee amputation , vascular surgery has evaluated patient and patient is status post left BKA 5-patient to continue vancomycin along with cefepime and continue supportive care Dictation was produced using [employer] dictation software. please excuse any grammatical, word or spelling errors. Time with Patient: Less than 30
--- NOTE | 2023-09-04 15:59 | P.PN ---
Subjective Progress Note Date: 09/04/23 Principal diagnosis: Reason for follow-up is sepsis left diabetic foot infection and bacteremia Patient is a 52-year-old male with a past medical history significant for diabetes mellitus hypertension hyperlipidemia and this patient who did have a history of left diabetic foot infection with an abscess s/p surgical drainage back in April 2023 with a culture grew MRSA Enterococcus faecalis and anaerobes for the patient has completed more than 8 weeks of IV antibiotic therapy and the patient was following at [facility], patient has been brought back to the hospital concerning for worsening left foot wound swelling and redness patient was noticed to be septic related to extensive left diabetic foot infection and did have bacteremia.Patient is status post left below the knee amputation completed afternoon of 09/03/2023 on today's evaluation that is 09/04/2023,the patient denies any fever or any chills, patient is breathing comfortably on room air, the patient denies chest pain shortness of breath and no significant cough, patient denies abdominal pain, no nausea vomiting or diarrhea. Denies any worsening pain to the left BKA stump Patient white count of 12.5 creatinine 0.85 Vanco trough of 26.7 blood culture repeat has been negative Objective - Vital Signs Vital signs: Vital Signs Temp 98.0 F 09/04/23 07:36 Pulse 81 09/04/23 07:36 Resp 17 09/04/23 07:36 BP 100/56 09/04/23 07:36 Pulse Ox 93 L 09/04/23 07:36 FiO2 Intake & Output 09/03/23 09/04/23 09/04/23 18:59 06:59 18:59 Intake Total 1000 Output Total 75 0 Balance 925 0 Intake: IV 1000 Output: Urine 0 Estimated Blood Loss 75 Other: Voiding Method Toilet # Voids 6 0 - Exam GENERAL DESCRIPTION: Middle-age male lying in bed in no distress RESPIRATORY SYSTEM: Unlabored breathing , decreased breath sounds at bases HEART: S1 S2 regular rate and rhythm , ABDOMEN: Soft , no tenderness EXTREMITIES: LBKA stump is currently dressed - Labs CBC & Chem 7: 09/04/23 11:45 09/04/23 07:40 Labs: Abnormal Lab Results - Last 24 Hours (Table) 09/03/23 09/03/23 09/03/23 Range/Units 13:57 16:15 17:46 POC Glucose (mg/dL) 217 H 187 H 237 H (70-110) mg/dL 09/03/23 09/04/23 09/04/23 Range/Units 21:12 00:06 04:05 POC Glucose (mg/dL) 338 H 314 H 267 H (70-110) mg/dL 09/04/23 09/04/23 Range/Units 08:18 12:10 POC Glucose (mg/dL) 218 H 268 H (70-110) mg/dL Microbiology - Last 24 Hours (Table) 08/29/23 07:30 Blood Culture - Final Blood Assessment and Plan (1) Bacteremia Current Visit: Yes Status: Acute Code(s): R78.81 - BACTEREMIA SNOMED Code(s): 2356409 (2) Diabetes with skin ulcer Current Visit: No Status: Acute Code(s): E11.622 - TYPE 2 DIABETES MELLITUS WITH OTHER SKIN ULCER; L98.499 - NON-PRESSURE CHRONIC ULCER OF SKIN OF SITES W UNSP SEVERITY SNOMED Code(s): 13826613 (3) Diabetic infection of left foot Current Visit: No Status: Acute Code(s): E11.628 - TYPE 2 DIABETES MELLITUS WITH OTHER SKIN COMPLICATIONS; L08.9 - LOCAL INFECTION OF THE SKIN AND SUBCUTANEOUS TISSUE, UNSP SNOMED Code(s): 96470550 Plan: 1patient presented to hospital with sepsis in this patient who did have low- grade fever elevated white count source is extensive infection of left foot and this patient with underlying diabetes patient did have evidence of abscess on the basis of her plain x-rays and operative wound on the medial aspect of the right ankle area 2-patient with polymicrobial bacteremia source is likely extensive left diabetic foot infection 3-blood culture previously reported as MSSA has been switched to MRSA, repeat blood culture has been negative 4--patient did have extensive infection of the left lower extremity will benefit from left below the knee amputation , vascular surgery has evaluated patient and patient is status post left BKA 5-patient will need a week of IV vancomycin because of his bacteremia this has been discussed with vascular surgeon PICC line has been ordered Dictation was produced using [employer] software. please excuse any grammatical, word or spelling errors. Time with Patient: Less than 30
[2023-09-04 16:05] LABS: Glucose,Whole Blood 329 mg/dL (70-110)
[2023-09-04 20:25] LABS: Glucose,Whole Blood 326 mg/dL (70-110)
--- NOTE | 2023-09-04 22:45 | P.GSCN ---
History of Present Illness Consult date: 09/04/23 Reason for Consult: Postoperative urinary retention Requesting physician: Zulema Mcmahon History of present illness: The patient is a 52-year-old white male who underwent a left BKA yesterday due to a chronic non-healing wound with infection of his left lower extremity and foot. He has experienced difficulty voiding postoperatively, with postvoid residuals up to 800 cc. He states that he does not experience difficulty voiding at home, but has in the hospital due to his inability to ambulate. He now has an indwelling Domínguez catheter. Review of Systems - Genitourinary Reports as per HPI Past Medical History Past Medical History: Diabetes Mellitus, Hyperlipidemia, Hypertension Additional Past Medical History / Comment(s): STATES SORE ON THE BOTTOM OF LEFT FOOT. History of Any Multi-Drug Resistant Organisms: MRSA, VRE Year Discovered:: 08/25/23 MRSA; 10/02/22 VRE MDRO Source:: Left Foot and Blood-MRSA; Abdomen-VRE Past Surgical History: Hernia Repair Past Anesthesia/Blood Transfusion Reactions: No Reported Reaction Additional Past Anesthesia/Blood Transfusion Reaction / Comm: PT HAS NEVER RECEIVED ANESTHESIA. Past Psychological History: Anxiety Smoking Status: Former smoker Past Alcohol Use History: Occasional Additional Past Alcohol Use History / Comment(s): HX OF 1/2 PPD SMOKER. Past Drug Use History: None Reported - Past Family History Mother Family Medical History: Diabetes Mellitus Father Family Medical History: Cancer Medications and Allergies Home Medications Medication Instructions Recorded Confirmed Type Empagliflozin [Jardiance] 25 mg PO DAILY 11/09/21 08/25/23 History HYDROcodone/APAP 7.5-325MG [Bozman 1 tab PO TID 11/09/21 08/25/23 History 7.5-325] Simvastatin [Zocor] 20 mg PO DAILY 11/09/21 08/25/23 History sitaGLIPtin [Januvia] 100 mg PO DAILY 11/09/21 08/25/23 History Famotidine 20 mg PO BID 07/01/22 08/25/23 History Sevelamer [Renvela] 800 mg PO W/SUPPER 07/01/22 08/25/23 History Ergocalciferol [Vitamin D2 (1250 1,250 mcg PO MO 10/01/22 08/25/23 History Mcg = 68571 Iu)] metFORMIN HCL 1,000 mg PO BID 10/01/22 08/25/23 History Terbinafine [LamISIL] 250 mg PO DAILY 02/05/23 08/25/23 History Furosemide [Lasix] 40 mg PO DAILY 05/14/23 08/25/23 History Multivitamins, Thera [Multivitamin 1 tab PO DAILY 05/14/23 08/25/23 History (formulary)] Pregabalin [Lyrica] 200 mg PO TID 05/14/23 08/25/23 History lisinopriL [Zestril] 20 mg PO DAILY 05/14/23 08/25/23 History Ipratropium-Albuterol Nebulize 3 ml INHALATION RT-QID 90 Days 05/23/23 08/25/23 Rx [Duoneb 0.5 mg-3 mg/3 ml Soln] #360 each Allergies Allergy/AdvReac Type Severity Reaction Status Date / Time No Known Allergies Allergy Verified 09/03/23 13:47 Surgical - Exam Vital Signs Temp Pulse Resp BP Pulse Ox 99.4 F 111 H 20 95/54 95 08/25/23 16:03 08/25/23 16:03 08/25/23 16:03 08/25/23 16:03 08/25/23 16:03 - General well developed, well nourished, no distress - Respiratory normal respiratory effort - Abdomen Abdomen: soft, non tender, no guarding, no rigid, no rebound - Genitourinary normal penis with no external lesions, testicles non-tender - Psychiatric oriented to time, oriented to person, oriented to place, speech is normal, memory intact Results - Labs 09/04/23 11:45 09/04/23 07:40 Abnormal Lab Results - Last 24 Hours (Table) 09/03/23 09/03/23 09/03/23 Range/Units 16:15 17:46 21:12 WBC (3.8-10.6) k/uL RBC (4.30-5.90) m/uL Hgb (13.0-17.5) gm/dL Hct (39.0-53.0) % MCHC (31.0-37.0) g/dL POC Glucose (mg/dL) 187 H 237 H 338 H (70-110) mg/dL 09/04/23 09/04/23 09/04/23 Range/Units 00:06 04:05 08:18 WBC (3.8-10.6) k/uL RBC (4.30-5.90) m/uL Hgb (13.0-17.5) gm/dL Hct (39.0-53.0) % MCHC (31.0-37.0) g/dL POC Glucose (mg/dL) 314 H 267 H 218 H (70-110) mg/dL 09/04/23 09/04/23 Range/Units 11:45 12:10 WBC 12.5 H (3.8-10.6) k/uL RBC 3.44 L (4.30-5.90) m/uL Hgb 10.6 L (13.0-17.5) gm/dL Hct 34.2 L (39.0-53.0) % MCHC 30.9 L (31.0-37.0) g/dL POC Glucose (mg/dL) 268 H (70-110) mg/dL Microbiology - Last 24 Hours (Table) 08/29/23 07:30 Blood Culture - Final Blood Diabetes panel 09/04/23 Range/Units 07:40 Creatinine 0.85 (0.66-1.25) mg/dL Pituitary panel 09/04/23 Range/Units 07:40 Creatinine 0.85 (0.66-1.25) mg/dL Adrenal panel 09/04/23 Range/Units 07:40 Creatinine 0.85 (0.66-1.25) mg/dL Assessment and Plan Plan: I would suggest that the Domínguez catheter remain in place until the patient is ambulatory, at which time the catheter should be removed and bladder scan utilized to assess bladder emptying. I have prescribed tamsulosin as this may help him void more effectively.
[2023-09-04 23:44] LABS: Glucose,Whole Blood 203 mg/dL (70-110)
[2023-09-05 01:13] LABS: Glucose,Whole Blood 140 mg/dL (70-110)
[2023-09-05 04:06] LABS: Glucose,Whole Blood 139 mg/dL (70-110)
[2023-09-05 05:00] LABS: Glucose,Whole Blood 139 mg/dL (70-110)
[2023-09-05 06:15] LABS: African American GFR (CKD) >90 (>60 ml/min/1.73 sqM); Non-African American GFR(CKD) >90 (>60 ml/min/1.73 sqM)
[2023-09-05 06:55] LABS: Glucose,Whole Blood 173 mg/dL (70-110)
[2023-09-05] MEDS: TAMSULOSIN 0.4 MG CAP.ER.24H PO SCH (08:58)
--- NOTE | 2023-09-05 10:34 | P.PN ---
Subjective Progress Note Date: 09/05/23 Principal diagnosis: Elevated LFTs Patient seen and examined today as a follow-up. He is postop day #2 for left below the knee amputation for infected wound. Yesterday he worked with physical therapy. He has been having difficulty voiding after surgery and a Domínguez catheter was placed yesterday and he was seen by urology. They recommend Domínguez catheter stay in place until patient is more ambulatory. They also added Flomax. Patient has good urine output. He has been afebrile. He had a midline placed this morning for outpatient antibiotics. He was seen by Fab and Audrey peña yesterday and a stump spanish interpreter/translator and rigid dressing was placed. Knee immobilizer remains in place. Objective - Vital Signs Vital signs: Vital Signs Temp 99.1 F 09/05/23 07:47 Pulse 89 09/05/23 07:47 Resp 16 09/05/23 07:47 BP 125/68 09/05/23 07:47 Pulse Ox 94 L 09/05/23 07:47 FiO2 Intake & Output 09/04/23 09/05/23 09/05/23 18:59 06:59 18:59 Output Total 2410 1100 Balance -2410 -1100 Output: Urine 2410 1100 Straight 1500 Other: Voiding Method Indwelling Catheter - Exam General appearance: The patient is alert, oriented, appears in no acute distress. HET: Head is normocephalic and atraumatic. Conjunctiva pink. Sclera anicteric. Neck: Supple without lymphadenopathy. Abdomen: Soft, nondistended. Extremities: Left lower extremity with dressing clean dry and intact, stump spanish interpreter/translator, rigid dressing and knee immobilizer in place. Skin: No rashes, no jaundice Neurological: No focal deficits. Alert and oriented. - Labs CBC & Chem 7: 09/04/23 11:45 09/05/23 05:41 Labs: Abnormal Lab Results - Last 24 Hours (Table) 09/04/23 09/04/23 09/04/23 Range/Units 11:45 12:10 16:04 WBC 12.5 H (3.8-10.6) k/uL RBC 3.44 L (4.30-5.90) m/uL Hgb 10.6 L (13.0-17.5) gm/dL Hct 34.2 L (39.0-53.0) % MCHC 30.9 L (31.0-37.0) g/dL POC Glucose (mg/dL) 268 H 329 H (70-110) mg/dL 09/04/23 09/04/23 09/05/23 Range/Units 20:21 23:42 01:07 WBC (3.8-10.6) k/uL RBC (4.30-5.90) m/uL Hgb (13.0-17.5) gm/dL Hct (39.0-53.0) % MCHC (31.0-37.0) g/dL POC Glucose (mg/dL) 326 H 203 H 140 H (70-110) mg/dL 09/05/23 09/05/23 09/05/23 Range/Units 04:04 04:58 06:53 WBC (3.8-10.6) k/uL RBC (4.30-5.90) m/uL Hgb (13.0-17.5) gm/dL Hct (39.0-53.0) % MCHC (31.0-37.0) g/dL POC Glucose (mg/dL) 139 H 139 H 173 H (70-110) mg/dL Assessment and Plan Assessment: 1. Left foot infected chronic wounds status post left below the knee amputation 2. Diabetes mellitus 3. Hyperglycemia 4. Hypertension 5. Hyperlipidemia (1) Elevated LFTs Current Visit: Yes Status: Acute Code(s): R79.89 - OTHER SPECIFIED ABNORMAL FINDINGS OF BLOOD CHEMISTRY SNOMED Code(s): 809630529 (2) Diabetes mellitus Current Visit: Yes Status: Acute Code(s): E11.9 - TYPE 2 DIABETES MELLITUS WITHOUT COMPLICATIONS SNOMED Code(s): 05259505 (3) Diabetic infection of left foot Current Visit: No Status: Acute Code(s): E11.628 - TYPE 2 DIABETES MELLITUS WITH OTHER SKIN COMPLICATIONS; L08.9 - LOCAL INFECTION OF THE SKIN AND SUBCUTANEOUS TISSUE, UNSP SNOMED Code(s): 46695927 Plan: 1. Continue symptomatic supportive care 2. Continue with recommendations from infectious disease 3. Stump spanish interpreter/translator and rigid dressing in place. [facility] and [facility] following patient. Keep knee immobilizer in place. 4. Recommend strict glycemic control 5. Daily dressing change with Adaptic, 4 x 4, and Kerlix. 6. Physical therapy following 7. Patient is cleared by vascular surgery for discharge. Recommend outpatient follow-up in 2 weeks. Thank you for this consultation, we will sign off at this time. The impression and plan of care has been dictated as directed. Dr. Domínguez I performed a history and examination of this patient, discussed the same with the dictator. I agree with the dictator's note ,documented as a scribe. Any additional findings or plans will be noted.
[2023-09-05 11:10] LABS: Glucose,Whole Blood 298 mg/dL (70-110)
[2023-09-05 16:07] LABS: Glucose,Whole Blood 424 mg/dL (70-110)
--- NOTE | 2023-09-05 16:35 | P.PN ---
Subjective Progress Note Date: 09/05/23 Principal diagnosis: Reason for follow-up is sepsis left diabetic foot infection and bacteremia Patient is a 52-year-old male with a past medical history significant for diabetes mellitus hypertension hyperlipidemia and this patient who did have a history of left diabetic foot infection with an abscess s/p surgical drainage back in April 2023 with a culture grew MRSA Enterococcus faecalis and anaerobes for the patient has completed more than 8 weeks of IV antibiotic therapy and the patient was following at [facility], patient has been brought back to the hospital concerning for worsening left foot wound swelling and redness patient was noticed to be septic related to extensive left diabetic foot infection and did have bacteremia.Patient is status post left below the knee amputation completed afternoon of 09/03/2023 on today's evaluation that is 09/05/2023,the patient did have a temperature of 101.3 F last night patient is afebrile this morning he is breathing comfortably on room air no chest pain shortness of breath or cough no abdominal pain or worsening pain to the left BKA stump. Patient did have a creatinine 0.94 no CBC was done today Objective - Vital Signs Vital signs: Vital Signs Temp 99.1 F 09/05/23 07:47 Pulse 89 09/05/23 07:47 Resp 16 09/05/23 07:47 BP 125/68 09/05/23 07:47 Pulse Ox 94 L 09/05/23 07:47 FiO2 Intake & Output 09/04/23 09/05/23 09/05/23 18:59 06:59 18:59 Output Total 2410 1100 Balance -2410 -1100 Output: Urine 2410 1100 Straight 1500 Other: Voiding Method Indwelling Catheter - Exam GENERAL DESCRIPTION: Middle-age male lying in bed in no distress RESPIRATORY SYSTEM: Unlabored breathing , decreased breath sounds at bases HEART: S1 S2 regular rate and rhythm , ABDOMEN: Soft , no tenderness EXTREMITIES: LBKA stump is currently dressed - Labs CBC & Chem 7: 09/04/23 11:45 09/05/23 05:41 Labs: Abnormal Lab Results - Last 24 Hours (Table) 09/04/23 09/04/23 09/04/23 Range/Units 11:45 16:04 20:21 WBC 12.5 H (3.8-10.6) k/uL RBC 3.44 L (4.30-5.90) m/uL Hgb 10.6 L (13.0-17.5) gm/dL Hct 34.2 L (39.0-53.0) % MCHC 30.9 L (31.0-37.0) g/dL POC Glucose (mg/dL) 329 H 326 H (70-110) mg/dL 09/04/23 09/05/23 09/05/23 Range/Units 23:42 01:07 04:04 WBC (3.8-10.6) k/uL RBC (4.30-5.90) m/uL Hgb (13.0-17.5) gm/dL Hct (39.0-53.0) % MCHC (31.0-37.0) g/dL POC Glucose (mg/dL) 203 H 140 H 139 H (70-110) mg/dL 09/05/23 09/05/23 09/05/23 Range/Units 04:58 06:53 11:09 WBC (3.8-10.6) k/uL RBC (4.30-5.90) m/uL Hgb (13.0-17.5) gm/dL Hct (39.0-53.0) % MCHC (31.0-37.0) g/dL POC Glucose (mg/dL) 139 H 173 H 298 H (70-110) mg/dL Assessment and Plan (1) Bacteremia Current Visit: Yes Status: Acute Code(s): R78.81 - BACTEREMIA SNOMED Code(s): 4670725 (2) Diabetes with skin ulcer Current Visit: No Status: Acute Code(s): E11.622 - TYPE 2 DIABETES MELLITUS WITH OTHER SKIN ULCER; L98.499 - NON-PRESSURE CHRONIC ULCER OF SKIN OF SITES W UNSP SEVERITY SNOMED Code(s): 01162522 (3) Diabetic infection of left foot Current Visit: No Status: Acute Code(s): E11.628 - TYPE 2 DIABETES MELLITUS WITH OTHER SKIN COMPLICATIONS; L08.9 - LOCAL INFECTION OF THE SKIN AND SUBCUTANE OUS TISSUE, UNSP SNOMED Code(s): 16812673 Plan: 1patient presented to hospital with sepsis in this patient who did have low- grade fever elevated white count source is extensive infection of left foot and this patient with underlying diabetes patient did have evidence of abscess on the basis of her plain x-rays and operative wound on the medial aspect of the right ankle area 2-patient with polymicrobial bacteremia source is likely extensive left diabetic foot infection 3-blood culture previously reported as MSSA has been switched to MRSA, repeat blood culture has been negative 4--patient is status post left BKA 5-patient antibiotic adjusted to Rocephin and vancomycin which will be for about a week on discharge he did have a fever last night and need to be monitored closely if another fever to recheck his blood culture Dictation was produced using [employer] software. please excuse any grammatical, word or spelling errors. Time with Patient: Less than 30
[2023-09-05] MEDS: VANCOMYCIN 1,500 MG in SODIUM CHLORIDE 0.9% 500 ML 500 ML IVPB SCH (17:35)
[2023-09-05 22:27] LABS: Glucose,Whole Blood 240 mg/dL (70-110)
[2023-09-06 00:16] LABS: Glucose,Whole Blood 228 mg/dL (70-110)
--- NOTE | 2023-09-06 02:05 | PN ---
PROGRESS NOTE SUBJECTIVE: This is a 52-year-old white male, status post amputation. Does not feel like he is ready to go to the [facility]. This was on September 04, 2023. OBJECTIVE: CARDIOVASCULAR: S1, S2. LUNGS: Transmitted upper sounds, decreased breath sounds x4. GI: Soft, nontender. HEMATOLOGY: Negative for Homans. PSYCH: Fair mood and affect. Anxious, nervous. GENERAL: A 52-year-old white male. PSYCH: Anxious. EXTREMITIES: Left leg wound bandage on. Continue current treatment. Broad-spectrum antibiotics per Dr. Mendez and vancomycin and ertapenem for another week in the [facility]. Continue breathing treatments. Prognosis guarded. Diabetic control as mentioned above. MMODL / IJN: [id number] /
--- NOTE | 2023-09-06 03:11 | DS ---
DISCHARGE SUMMARY DISCHARGE DIAGNOSES: 1. Bacteremia due to MRSA. 2. Charcot foot. 3. Diabetes mellitus. 4. Diabetic foot infection, severe in nature with sepsis and with bacteremia. 5. COPD. 6. Elevated liver enzymes, probable early cirrhosis. 7. BPH. 8. Anxiety. 9. Chronic neuropathy. HOME MEDICINES: 1. Rocephin 2000 mg IV push every 24 hours. 2. Actos 30 mg daily. 3. Flomax 0.4 mg daily. 4. Xanax 0.25 q.6h p.r.n. for anxiety. 5. Vancomycin 1500 mg IV piggyback q.24 hours for 7 days. 6. Levemir 20 units subcu daily. 7. Metoprolol tartrate 25 mg b.i.d. 8. NovoLog 20 units with his meals. 9. Januvia 100 mg daily. 10.Zocor 10 mg daily. 11.Jardiance 25 mg daily. 12.Lasix 40 mg daily. 13.Lyrica 200 t.i.d. 14.Multivitamin daily. 15.Zestril 20 daily. 16.Ranburne 7.5 t.i.d. 17.Famotidine 20 mg b.i.d. 18.Renvela 800 mg supper. 19.Vitamin D 50,000 units weekly. 20.DuoNeb updrafts q.i.d. CONDITION: Stable. PROGNOSIS: Guarded. ACTIVITY: Ambulate as tolerated. DIET: Will be a diabetic diet, consistent carb diet. He needs to continue with his breathing treatments for COPD. He came in with MRSA bacteremia. His blood cultures final followup were negative due to significant nature of the left leg infection. He underwent amputation of the left leg, below-knee by Dr. Lorenzo. Pain control is troubling postop. Sugars have been under good control, is under good control. Please see further orders. He will learn how to ambulate, get a prosthetic leg as soon as possible, then go home to his . Prognosis guarded. MMODL / IJN: [id number] /
[2023-09-06 04:15] LABS: Glucose,Whole Blood 127 mg/dL (70-110)
[2023-09-06 07:29] LABS: African American GFR (CKD) >90 (>60 ml/min/1.73 sqM); Non-African American GFR(CKD) >90 (>60 ml/min/1.73 sqM)
[2023-09-06 07:41] LABS: Glucose,Whole Blood 210 mg/dL (70-110)
[2023-09-06 08:26] VITALS: BP 133/93; PULSE 83; RESP 18; TEMP 98.2
[2023-09-06 11:34] LABS: Glucose,Whole Blood 298 mg/dL (70-110)
--- NOTE | 2023-09-06 12:19 | P.PN ---
Subjective Progress Note Date: 09/06/23 Principal diagnosis: Urinary retention The patient has struggled to ambulate. The Domínguez catheter remains in place, draining clear yellow urine. Objective - Vital Signs Vital signs: Vital Signs Temp 98.2 F 09/06/23 08:00 Pulse 83 09/06/23 08:00 Resp 18 09/06/23 08:00 BP 133/93 09/06/23 08:00 Pulse Ox 96 09/06/23 08:00 FiO2 Intake & Output 09/05/23 09/06/23 09/06/23 18:59 06:59 18:59 Intake Total 1300 Output Total 2350 Balance 1300 -2350 Intake: Intake, IV Titration 550 Amount Vancomycin 1,500 mg In 500 Sodium Chloride 0.9% 500 ml 500 ml @ 167 mls/hr IVPB Q24H [facility]L Rx#: [id number] cefTRIAXone 2 gm In 50 Sodium Chloride 0.9% 50 ml @ 100 mls/hr IVPB Q24HR CARL Rx#:[id number] Oral 750 Output: Urine 2350 Other: Voiding Method Indwelling Catheter Indwelling Catheter Indwelling Catheter # Bowel Movements 1 - Constitutional General appearance: Present: average body habitus, cooperative, no acute distress - Psychiatric Psychiatric: Present: A&O x's 3 - Labs CBC & Chem 7: 09/04/23 11:45 09/06/23 06:28 Labs: Abnormal Lab Results - Last 24 Hours (Table) 09/05/23 09/05/23 09/06/23 Range/Units 16:05 22:25 00:14 POC Glucose (mg/dL) 424 H 240 H 228 H (70-110) mg/dL 09/06/23 09/06/23 09/06/23 Range/Units 04:14 07:38 11:33 POC Glucose (mg/dL) 127 H 210 H 298 H (70-110) mg/dL Assessment and Plan Plan: I would suggest that the Domínguez catheter remain in place until the patient is ambulatory, at which time the catheter should be removed and bladder scan utilized to assess bladder emptying. I have prescribed tamsulosin as this may help him void more effectively. If the patient is discharged prior to catheter removal, he will follow-up with me as an outpatient.
[2023-09-06] MEDS ORDERED: VANCOMYCIN 1,500 MG in SODIUM CHLORIDE 0.9% 500 ML 500 ML IVPB SCH (17:00)
--- NOTE | 2023-09-06 17:11 | PN ---
PROGRESS NOTE SUBJECTIVE: A 52-year-old white male. He is [facility]. He is still here in the hospital. Sugars are in the 200s. GFR is over 90. OBJECTIVE: VITAL SIGNS: Temperature 98.2, pulse 80s, respiratory rate 18, blood pressure is up to 133/93, sat 91% to 96% on room air. He is planning to go to rehab. He is status post BKA of his left leg for diabetic wound infection. CARDIOVASCULAR: S1, S2. LUNGS: Decreased breath sounds. PSYCH: Alert and oriented x3. He will need physical therapy to learn how to walk and watch his wound heal. He can go home since crutches or with the walker until he can get a stump as he does not have to stay in the [facility] until he gets his stump replacing and go home since he gets his wound heals and gets walking better. MMPATRICK / IJN: [id number] /
--- NOTE | 2023-09-06 21:44 | P.PN ---
Subjective Progress Note Date: 09/06/23 Principal diagnosis: Reason for follow-up is sepsis left diabetic foot infection and bacteremia Patient is a 52-year-old male with a past medical history significant for diabetes mellitus hypertension hyperlipidemia and this patient who did have a history of left diabetic foot infection with an abscess s/p surgical drainage back in April 2023 with a culture grew MRSA Enterococcus faecalis and anaerobes for the patient has completed more than 8 weeks of IV antibiotic therapy and the patient was following at [facility], patient has been brought back to the hospital concerning for worsening left foot wound swelling and redness patient was noticed to be septic related to extensive left diabetic foot infection and did have bacteremia.Patient is status post left below the knee amputation completed afternoon of 09/03/2023 on today's evaluation that is 09/06/2023, the patient continues to be afebrile, the patient is on room air and breathing comfortably, the Pt denies having any chest pain or cough, the patient denies having any abdominal pain no vomiting or any diarrhea has been reported by the nursing staff still complaining of some pain to the left BKA stump. Patient did have a creatinine 0.87 blood culture repeat has been negative Objective - Vital Signs Vital signs: Vital Signs Temp 98.2 F 09/06/23 08:00 Pulse 83 09/06/23 08:00 Resp 18 09/06/23 08:00 BP 133/93 09/06/23 08:00 Pulse Ox 96 09/06/23 08:00 FiO2 Intake & Output 09/05/23 09/06/23 09/06/23 18:59 06:59 18:59 Intake Total 1300 Output Total 2350 Balance 1300 -2350 Intake: Intake, IV Titration 550 Amount Vancomycin 1,500 mg In 500 Sodium Chloride 0.9% 500 ml 500 ml @ 167 mls/hr IVPB Q24H [facility] Rx#: [id number] cefTRIAXone 2 gm In 50 Sodium Chloride 0.9% 50 ml @ 100 mls/hr IVPB Q24HR CARL Rx#:[id number] Oral 750 Output: Urine 2350 Other: Voiding Method Indwelling Catheter Indwelling Catheter # Bowel Movements 1 - Exam GENERAL DESCRIPTION: Middle-age male lying in bed in no distress RESPIRATORY SYSTEM: Unlabored breathing , decreased breath sounds at bases HEART: S1 S2 regular rate and rhythm , ABDOMEN: Soft , no tenderness EXTREMITIES: LBKA stump is currently dressed - Labs CBC & Chem 7: 09/04/23 11:45 09/06/23 06:28 Labs: Abnormal Lab Results - Last 24 Hours (Table) 09/05/23 09/05/23 09/05/23 Range/Units 11:09 16:05 22:25 POC Glucose (mg/dL) 298 H 424 H 240 H (70-110) mg/dL 09/06/23 09/06/23 09/06/23 Range/Units 00:14 04:14 07:38 POC Glucose (mg/dL) 228 H 127 H 210 H (70-110) mg/dL Assessment and Plan (1) Bacteremia Status: Acute Code(s): R78.81 - BACTEREMIA SNOMED Code(s): 4212753 (2) Diabetes with skin ulcer Status: Acute Code(s): E11.622 - TYPE 2 DIABETES MELLITUS WITH OTHER SKIN ULCER; L98.499 - NON-PRESSURE CHRONIC ULCER OF SKIN OF SITES W UNSP SEVERITY SNOMED Code(s): 03838018 (3) Diabetic infection of left foot Status: Acute Code(s): E11.628 - TYPE 2 DIABETES MELLITUS WITH OTHER SKIN COMPLICATIONS; L08.9 - LOCAL INFECTION OF THE SKIN AND SUBCUTANEOUS TISSUE, UNSP SNOMED Code(s): 99405154 Plan: 1patient presented to hospital with sepsis in this patient who did have low- grade fever elevated white count source is extensive infection of left foot and this patient with underlying diabetes patient did have evidence of abscess on the basis of her plain x-rays and operative wound on the medial aspect of the right ankle area 2-patient with polymicrobial bacteremia source is likely extensive left diabetic foot infection 3-blood culture previously reported as MSSA has been switched to MRSA, repeat blood culture has been negative 4--patient is status post left BKA 5-patient to continue with o Rocephin and vancomycin x 1 week on discharge to finish treatment for his bacteremia Dictation was produced using [employer] dictation software. please excuse any grammatical, word or spelling errors. Time with Patient: Less than 30
== END 2023-09-06 13:52 | DRG 710 ==
LOC: EC 15:37 → 4SSUR 18:39
PROVIDERS: ADMIT Family Medicine; ATTEND Family Medicine
PROC: 0Y6J0Z1 Detachment at Left Lower Leg, High, Open Approach (ICD-10-PCS; principal; 2023-09-03 07:30)
DX: A41.02 Sepsis due to Methicillin resistant Staphylococcus aureus (principal); E11.610 Type 2 diabetes mellitus with diabetic neuropathic arthropathy; E11.621 Type 2 diabetes mellitus with foot ulcer; E11.628 Type 2 diabetes mellitus with other skin complications; E11.69 Type 2 diabetes mellitus with other specified complication; E44.0 Moderate protein-calorie malnutrition; E87.1 Hypo-osmolality and hyponatremia; M86.8X7 Other osteomyelitis, ankle and foot; K74.60 Unspecified cirrhosis of liver; J44.9 Chronic obstructive pulmonary disease, unspecified; E11.40 Type 2 diabetes mellitus with diabetic neuropathy, unspecified; E11.65 Type 2 diabetes mellitus with hyperglycemia; L97.323 Non-pressure chronic ulcer of left ankle with necrosis of muscle; K75.9 Inflammatory liver disease, unspecified; I11.0 Hypertensive heart disease with heart failure; L97.524 Non-pressure chronic ulcer of other part of left foot with necrosis of bone; L03.116 Cellulitis of left lower limb; I95.9 Hypotension, unspecified; Z79.4 Long term (current) use of insulin; I50.32 Chronic diastolic (congestive) heart failure; K76.0 Fatty (change of) liver, not elsewhere classified; L02.612 Cutaneous abscess of left foot; F41.9 Anxiety disorder, unspecified; R33.8 Other retention of urine; E78.5 Hyperlipidemia, unspecified; E86.0 Dehydration; N40.1 Benign prostatic hyperplasia with lower urinary tract symptoms; D64.9 Anemia, unspecified; Z86.14 Personal history of Methicillin resistant Staphylococcus aureus infection; Z79.84 Long term (current) use of oral hypoglycemic drugs; Z71.3 Dietary counseling and surveillance; Z28.21 Immunization not carried out because of patient refusal; Z87.891 Personal history of nicotine dependence; Z79.2 Long term (current) use of antibiotics; Z79.899 Other long term (current) drug therapy
CPT/HCPCS: 36410; 36415; 71046; 76705; 76937; 80048; 80053; 80074; 80202; 82565; 83036; 83605; 85025; 85027; 85610; 85652; 85730; 86140; 87040; 87070; 87077; 87186; 87205; 93005; 94640; 96361; 96365; 96366; 96367; 96375; 99285

== ENCOUNTER 2023-10-04 14:10 | Inpatient (IN) | payer OTHER ==
--- NOTE | 2023-10-04 14:33 | ED ---
General Adult HPI - General Chief complaint: Weakness Stated complaint: ams, possible sepsis Time Seen by Provider: 10/04/23 14:14 Source: patient, EMS Mode of arrival: EMS - History of Present Illness Initial comments: Dictation was produced using [employer] dictation software. please excuse any grammatical, word or spelling errors. Chief Complaint: 52-year-old male presents emergency department for lethargy, hypotension, fever and weakness History of Present Illness: Patient is a 52-year-old male who presents to the emergency department with a nurse called. Patient allegedly currently being treated for C. difficile. According to nurse who received report from EMS she was last seen normal around Friday. Today is noted to be febrile, lethargic and weak. Apparently he has been had low blood pressures upon evaluation today. Patient states that he feels fine. States that he does have 4-5 bowel movements daily. Denies any fever chills. Does state that he feels cold though. The ROS documented in this emergency department record has been reviewed and confirmed by me. Those systems with pertinent positive or negative responses have been documented in the HPI. All other systems are other negative and/or noncontributory. - Related Data Home Medications Medication Instructions Recorded Confirmed HYDROcodone/APAP 7.5-325MG [Horicon 1 tab PO Q4H PRN 11/09/21 10/04/23 7.5-325] Simvastatin [Zocor] 20 mg PO HS 11/09/21 10/04/23 sitaGLIPtin [Januvia] 100 mg PO DAILY 11/09/21 10/04/23 Famotidine 20 mg PO HS 07/01/22 10/04/23 Sevelamer [Renvela] 800 mg PO W/SUPPER 07/01/22 10/04/23 Ergocalciferol [Vitamin D2 (1250 1,250 mcg PO TU 10/01/22 10/04/23 Mcg = 22241 Iu)] Furosemide [Lasix] 40 mg PO DAILY 05/14/23 10/04/23 Multivitamins, Thera [Multivitamin 1 tab PO DAILY 05/14/23 10/04/23 (formulary)] Pregabalin [Lyrica] 200 mg PO TID 05/14/23 10/04/23 Cholestyramine (with Sugar) 4 gm PO HS 10/04/23 10/04/23 [Questran] Ferrous Sulfate [Feosol] 325 mg PO DAILY@0800 10/04/23 10/04/23 HYDROcodone/APAP 10-325MG [Horicon 1 tab PO Q6HR PRN 10/04/23 10/04/23 10-325] INSULIN ASPART (NovoLOG) [NovoLOG 15 unit SQ AC-TID 10/04/23 10/04/23 (formulary)] Insulin Detemir [Levemir Flexpen] 10 unit SQ DAILY 10/04/23 10/04/23 Insulin Detemir [Levemir Flexpen] 30 units SQ HS 10/04/23 10/04/23 Ipratropium-Albuterol Nebulize 3 ml INHALATION RT-Q6H PRN 10/04/23 10/04/23 [Duoneb 0.5 mg-3 mg/3 ml Soln] L.acidoph,Paracasei, B.lactis 1 cap PO BID 10/04/23 10/04/23 [Probiotic] Loperamide HCl [Imodium A-D] 2 - 4 mg PO QID PRN 10/04/23 10/04/23 Naloxone HCl [Narcan] 4 mg NASAL DIRECTED PRN 10/04/23 10/04/23 Ondansetron [Zofran] 4 mg PO Q8H PRN 10/04/23 10/04/23 Psyllium Husk (with Sugar) 1 tbsp PO HS 10/04/23 10/04/23 [Metamucil Powder] Sodium Bicarbonate Tab 650 mg PO BID@0800,1600 10/04/23 10/04/23 metroNIDAZOLE [Flagyl] 500 mg PO TID@0800,1200,1800 10/04/23 10/04/23 Previous Rx's Medication Instructions Recorded ALPRAZolam [Xanax] 0.25 mg PO Q6HR PRN tab 09/05/23 Metoprolol Tartrate [Lopressor] 25 mg PO BID tab 09/05/23 Pioglitazone [Actos] 30 mg PO DAILY tab 09/05/23 Tamsulosin [Flomax] 0.4 mg PO DAILY cap 09/05/23 Allergies Allergy/AdvReac Type Severity Reaction Status Date / Time No Known Allergies Allergy Verified 10/04/23 15:00 Review of Systems ROS Statement: Those systems with pertinent positive or pertinent negative responses have been documented in the HPI. ROS Other: All systems not noted in ROS Statement are negative. Past Medical History Past Medical History: Diabetes Mellitus, Hyperlipidemia, Hypertension Additional Past Medical History / Comment(s): STATES SORE ON THE BOTTOM OF LEFT FOOT. History of Any Multi-Drug Resistant Organisms: C-DIFF, MRSA, VRE Date of last positivie culture/infection: MRSA 05/14/23; VRE 10/02/22 MDRO Source:: Right Foot-MRSA; Abdomen-VRE Past Surgical History: Hernia Repair Past Anesthesia/Blood Transfusion Reactions: No Reported Reaction Additional Past Anesthesia/Blood Transfusion Reaction / Comment(s): PT HAS NEVER RECEIVED ANESTHESIA. Past Psychological History: Anxiety Smoking Status: Former smoker Past Alcohol Use History: Occasional Past Drug Use History: None Reported - Past Family History Mother Family Medical History: Diabetes Mellitus Father Family Medical History: Cancer General Exam - General Exam Comments Initial Comments: PHYSICAL EXAM: General Impression: Alert and oriented x3, not in acute distress HEENT: Normocephalic atraumatic, extra-ocular movements intact, pupils equal and reactive to light bilaterally, mucous membranes moist. Cardiovascular: Heart regular rate and rhythm Chest: Able to complete full sentences, no retractions, no tachypnea Abdomen: abdomen soft, non-tender, non-distended, no organomegaly tympanitic with large midline ventral scar Musculoskeletal: Patient is a left lower extremity, adequate cap refill Motor: no focal deficits noted Neurological: CN II-XII grossly intact, no focal motor or sensory deficits noted Skin: Intact with no visualized rashes Psych: Normal affect and mood Course Vital Signs 10/04/23 10/04/23 10/04/23 14:13 16:11 16:57 Temperature 99.3 F Pulse Rate 100 85 87 Respiratory 18 20 20 Rate Blood Pressure 89/46 91/47 88/47 O2 Sat by Pulse 94 L 95 99 Oximetry EKG Findings - EKG Comments: EKG Findings:: My EKG interpretation: Ventricular rate 82, sinus rhythm,. 164, cures 92, QTc 4 3. No UT prolongation, no QTC prolongation, no ST or T-wave changes noted. Overall, this EKG is unremarkable Procedures - Sepsis Sepsis Focused Exam #1 Time Sepsis Criteria Met: 17:22 Sepsis Focused Exam Date: 10/04/23 Sepsis Focused Exam Time: 17:22 Sepsis Focused Exam Complete: Yes Capillary Refill: < 2 Seconds: Fingers, Toes Peripheral Pulses: Normal: Radial (R), Radial (L), Posterior Tibialis (R), Posterior Tibialis (L), Dorsalis Pedis (R), Dorsalis Pedis (L) Skin Color: Normal for Patient Respiratory Exam: normal lung sounds Cardiovascular Exam: regular rate Medical Decision Making - Medical Decision Making Was pt. sent in by a medical professional or institution (, PA, HISTORICAL GUIDE, urgent care, hospital, or snf...) When possible be specific @ -No Did you speak to anyone other than the patient for history (EMS, parent, family, police, friend...)? What history was obtained from this source @ -No Did you review nursing and triage notes (agree or disagree)? Why? @ -I reviewed and agree with nursing and triage notes Were old charts reviewed (outside hosp., previous admission, EMS record, old EKG, old radiological studies, urgent care reports/EKG's, snf records)? Report findings @ -No old charts were reviewed Differential Diagnosis (chest pain, altered mental status, abdominal pain women, abdominal pain men, vaginal bleeding, musculoskeletal, weakness, fever, dyspnea, syncope, headache, dizziness, GI bleed, back pain, seizure, CVA, palpatations, mental health)? @ -Differential Weakness: Hypoglycemia, shock, sepsis, hyponatremia, anemia, infection, TN, ETOH, adverse medicine reaction, overdose, stroke, this is not meant to be an all-inclusive li st. EKG interpreted by me (3pts min.). @ -None done X-rays interpreted by me (1pt min.). @ -Chest x-ray is nonacute CT interpreted by me (1pt min.). @ -CT brain shows no acute processes. CT abdomen pelvis shows diffuse colitis U/S interpreted by me (1pt. min.). @ -None done What testing was considered but not performed or refused? (CT, X-rays, U/S, labs)? Why? @ -None What meds were considered but not given or refused? Why? @ -None Did you discuss the management of the patient with other professionals (professionals i.e. , JAVIER, HISTORICAL GUIDE, lab, RT, psych nurse, social media executive, bench inspector, teacher, technology officer, transplant case manager)? Give summary @ -Discussed with hospitalist for admission. also discussed with intensivits Dr. Goddard. Was smoking cessation discussed for >3mins.? @ -No Was critical care preformed (if so, how long)? @ -yes, 33 minutes Were there social determinants of health that impacted care today? How? (Homelessness, low income, unemployed, alcoholism, drug addiction, transpo rtation, low edu. Level, literacy, decrease access to med. care, retirement, rehab)? @ -No Was there de-escalation of care discussed even if they declined (Discuss DNR or withdrawal of care, Hospice)? DNR status @ -No What co-morbidities impacted this encounter? (DM, HTN, Smoking, COPD, CAD, Cancer, CVA, ARF, Chemo, Hep., AIDS, mental health diagnosis, sleep apnea, morbid obesity)? @ -None Was patient admitted / discharged? Hospital course, mention meds given and route, prescriptions, significant lab abnormalities, going to OR and other pertinent info. @ -82-year-old male presents to the emergency department for weakness. Currently being treated with p.o. Flagyl for C. difficile. Vital signs upon arrival shows soft blood pressure 89/46, rest of vital signs within acceptable limits. Patient has no complaints. No acute distress. Their evaluation shows leukemoid reaction with a white count of 16.6. Hemoglobin 9.6. Bicarb of With elevated renal function with BUN of 111 creatinine of 3.52. Rest of labs within acceptable limits. C. difficile is positive. CT imaging of brain and abdomen pelvis consistent with C. difficile. Chest x-ray is negative. Pending urine studies. Suspicion of sepsis secondary to C. difficile infection. Given 30 cc/kg bolus. Patient given boluses of fluid along with being started on sodium bicarb. Patient initially given vancomycin and Zosyn for unknown source however after all his results came back and C. difficile was the diagnosis patient started on IV Flagyl. Patient will be admitted to icu consultation to infectious disease and nephrology. Undiagnosed new problem with uncertain prognosis? @ -No Drug Therapy requiring intensive monitoring for toxicity (Heparin, Nitro, Insulin, Cardizem)? @ -No Were any procedures done? @ -No Diagnosis/symptom? Acute, or Chronic, or Acute on Chronic? Uncomplicated (without systemic symptoms) or Complicated (systemic symptoms)? @ -C. difficile, complicated by MIKEL and dehydration Side effects of treatment? @ -No Exacerbation, Progression, or Severe Exacerbation? @ -No Poses a threat to life or bodily function? How? (Chest pain, USA, TN, pneumonia, PE, COPD, DKA, ARF, appy, cholecystitis, CVA, Diverticulitis, Homicidal, Suicidal, threat to staff... and all critical care pts) @ -yes - Lab Data Result diagrams: 10/04/23 14:28 10/04/23 14:28 Lab Results 10/04/23 10/04/23 10/04/23 Range/Units 14:28 14:28 14:28 WBC 16.6 H (3.8-10.6) k/uL RBC 3.21 L (4.30-5.90) m/uL Hgb 9.6 L (13.0-17.5) gm/dL Hct 30.7 L (39.0-53.0) % MCV 95.7 (80.0-100.0) fL MCH 30.0 (25.0-35.0) pg MCHC 31.4 (31.0-37.0) g/dL RDW 15.3 (11.5-15.5) % Plt Count 179 (150-450) k/uL MPV 9.1 Neutrophils % 86 % Lymphocytes % 5 % Monocytes % 6 % Eosinophils % 1 % Basophils % 0 % Neutrophils # 14.2 H (1.3-7.7) k/uL Lymphocytes # 0.8 L (1.0-4.8) k/uL Monocytes # 1.0 (0-1.0) k/uL Eosinophils # 0.2 (0-0.7) k/uL Basophils # 0.0 (0-0.2) k/uL Hypochromasia Slight PT 12.0 (10.0-12.5) sec INR 1.1 (<1.2) APTT 25.9 (22.0-30.0) sec Sodium 136 L (137-145) mmol/L Potassium 5.1 (3.5-5.1) mmol/L Chloride 118 H (98-107) mmol/L Carbon Dioxide 9 L* (22-30) mmol/L Anion Gap 9 mmol/L BUN 111 H* (9-20) mg/dL Creatinine 3.52 H (0.66-1.25) mg/dL Est GFR (CKD-EPI)AfAm 21 (>60 ml/min/1.73 sqM) Est GFR (CKD-EPI)NonAf 19 (>60 ml/min/1.73 sqM) Glucose 84 (74-99) mg/dL POC Glucose (mg/dL) (70-110) mg/dL POC Glu Grounds Manager ID Plasma Lactic Acid Juan (0.7-2.0) mmol/L Calcium 9.1 (8.4-10.2) mg/dL Total Bilirubin 0.5 (0.2-1.3) mg/dL AST 20 (17-59) U/L ALT 9 (4-49) U/L Alkaline Phosphatase 58 (38-126) U/L Total Protein 5.4 L (6.3-8.2) g/dL Albumin 2.6 L (3.5-5.0) g/dL C. difficile (EIA) Intrp (Negative) 10/04/23 10/04/23 10/04/23 Range/Units 14:28 14:43 15:43 WBC (3.8-10.6) k/uL RBC (4.30-5.90) m/uL Hgb (13.0-17.5) gm/dL Hct (39.0-53.0) % MCV (80.0-100.0) fL MCH (25.0-35.0) pg MCHC (31.0-37.0) g/dL RDW (11.5-15.5) % Plt Count (150-450) k/uL MPV Neutrophils % % Lymphocytes % % Monocytes % % Eosinophils % % Basophils % % Neutrophils # (1.3-7.7) k/uL Lymphocytes # (1.0-4.8) k/uL Monocytes # (0-1.0) k/uL Eosinophils # (0-0.7) k/uL Basophils # (0-0.2) k/uL Hypochromasia PT (10.0-12.5) sec INR (<1.2) APTT (22.0-30.0) sec Sodium (137-145) mmol/L Potassium (3.5-5.1) mmol/L Chloride (98-107) mmol/L Carbon Dioxide (22-30) mmol/L Anion Gap mmol/L BUN (9-20) mg/dL Creatinine (0.66-1.25) mg/dL Est GFR (CKD-EPI)AfAm (>60 ml/min/1.73 sqM) Est GFR (CKD-EPI)NonAf (>60 ml/min/1.73 sqM) Glucose (74-99) mg/dL POC Glucose (mg/dL) 103 (70-110) mg/dL POC Glu Grounds Manager ID Tabitha, Jose Plasma Lactic Acid Juan 1.0 (0.7-2.0) mmol/L Calcium (8.4-10.2) mg/dL Total Bilirubin (0.2-1.3) mg/dL AST (17-59) U/L ALT (4-49) U/L Alkaline Phosphatase (38-126) U/L Total Protein (6.3-8.2) g/dL Albumin (3.5-5.0) g/dL C. difficile (EIA) Intrp Positive A (Negative) Disposition Clinical Impression: C. difficile colitis Disposition: ADMITTED IP TO THIS [facility] Condition: Critical Decision Time: 17:30
[2023-10-04 14:47] LABS: Glucose,Whole Blood 103 mg/dL (70-110)
[2023-10-04] MEDS: SODIUM CHLORIDE 0.9% 1,000 ML IV SCH ×2 (14:53→16:57)
[2023-10-04] MEDS: SODIUM CHLORIDE 0.9% 500 ML 500 ML IV SCH (14:54)
[2023-10-04 15:04] LABS: INR 1.1 (<1.2); Partial Thromboplastin Time 25.9 sec (22.0-30.0)
[2023-10-04 15:05] LABS: ALT 9 U/L (4-49); AST 20 U/L (17-59); African American GFR (CKD) 21 (>60 ml/min/1.73 sqM); Albumin 2.6 g/dL (3.5-5.0); Alkaline Phosphatase 58 U/L (38-126); Anion Gap 9 mmol/L; Calcium 9.1 mg/dL (8.4-10.2); Chloride 118 mmol/L (98-107); Glucose 84 mg/dL (74-99); Non-African American GFR(CKD) 19 (>60 ml/min/1.73 sqM); Potassium 5.1 mmol/L (3.5-5.1); Sodium 136 mmol/L (137-145); Total Bilirubin 0.5 mg/dL (0.2-1.3); Total Protein 5.4 g/dL (6.3-8.2)
[2023-10-04 15:15] LABS: Blood Urea Nitrogen 111 mg/dL (9-20); Carbon Dioxide 9 mmol/L (22-30)
[2023-10-04 15:17] LABS: Basophils % (A) 0 %; Eosinophils # (A) 0.2 k/uL (0-0.7); Eosinophils % (A) 1 %; HCT 30.7 % (39.0-53.0); HGB 9.6 gm/dL (13.0-17.5); Hypochromasia Slight; Lymphocytes # (A) 0.8 k/uL (1.0-4.8); Lymphocytes % (A) 5 %; MCHC 31.4 g/dL (31.0-37.0); MCV 95.7 fL (80.0-100.0); Mean Platelet Volume 9.1; Monocytes % (A) 6 %; Neutrophils # (A) 14.2 k/uL (1.3-7.7); Neutrophils % (A) 86 %; Platelet Count 179 k/uL (150-450); RBC 3.21 m/uL (4.30-5.90); RDW 15.3 % (11.5-15.5); WBC 16.6 k/uL (3.8-10.6)
[2023-10-04] MEDS ORDERED: VANCOMYCIN IV PER PHARMACY 1 EACH MISC MISCELLANE PRN (15:37)
[2023-10-04] MEDS ORDERED: PIPERACILLIN-TAZOBACTAM 3.375 GM in SODIUM CHLORIDE 0.9% 100 ML IVPB SCH (16:00)
--- NOTE | 2023-10-04 16:02 | CT ---
EXAMINATION TYPE: CT brain wo con CT DLP: 1344.4 mGycm, Automated exposure control for dose reduction was used. DATE OF EXAM: 10/04/2023 3:44 PM COMPARISON: None.. CLINICAL INDICATION:Male, 52 years old with history of ams, ams, sepsis TECHNIQUE: Brain: Axial CT images of the brain were obtained with coronal and sagittal reformats created and rev iewed. Contrast used: None. Oral contrast used: None. FINDINGS: Extra-axial spaces: No abnormal extra-axial fluid collections. Basilar cisterns are patent. Ventricular system: Ventricles appear dilated in proportion to the degree of cerebral atrophy. Cerebral parenchyma: No increased attenuation to suggest acute intraparenchymal hemorrhage. The gra y-white matter interface appears maintained. Mild generalized brain atrophy. White matter unremarka ble by CT. Cerebellum: No acute abnormality. Mass effect: No evidence of mass effect or midline shift. Intracranial vasculature: Mild atherosclerotic calcifications of the larger arteries near the skull b ase. Soft tissues: No acute or concerning abnormality. Visualized orbits: Orbital contents appear grossly intact. Calvarium/osseous structures: Limited evaluation due to motion. No fracture identified. Paranasal sinuses and mastoid air cells: Mastoid air cells appear clear. There are extensive opacitie s throughout the paranasal sinuses with thinning of the bone throughout the ethmoid air cell region i n particular. Maxillary sinuses are almost completely opacified and may have some superimposed fluid. There may be some superimposed fluid levels in the sphenoid sinuses as well. Mildly deformed appeara nce of the nasal bones, probably chronic depending on clinical correlation. MRI is more sensitive for detecting acute processes such as infarct, and may be considered if clinica lly warranted. IMPRESSION: 1. No acute intracranial CT abnormality. 2. Extensive paranasal sinus opacification, may reflect acute on chronic sinus disease.
[2023-10-04] MEDS: PIPERACILLIN-TAZOBACTAM 3.375 GM in SODIUM CHLORIDE 0.9% 100 ML IVPB STA (16:19)
[2023-10-04] MEDS: DEXTROSE 5% IN WATER 1,000 ML with SODIUM BICARB (1 MEQ/ML) 150 ML IV SCH (16:22)
[2023-10-04] MEDS: PIPERACILLIN-TAZOBACTAM 3.375 GM in SODIUM CHLORIDE 0.9% 100 ML IVPB SCH (16:29)
[2023-10-04] MEDS: VANCOMYCIN 1,500 MG in SODIUM CHLORIDE 0.9% 500 ML 500 ML IVPB ONE (16:52)
--- NOTE | 2023-10-04 16:52 | XR ---
EXAMINATION TYPE: XR chest 1V portable DATE OF EXAM: 10/04/2023 4:11 PM CLINICAL INDICATION:Male, 52 years old with history of sepsis; [facility] COMPARISON: Chest radiographs from 08/25/2023 TECHNIQUE: XR chest 1V portable Frontal view of the chest. FINDINGS: Lungs/Pleura: There is no evidence of pleural effusion, focal consolidation, or pneumothorax. Pulmonary vascularity: Unremarkable. Heart/mediastinum: Cardiomediastinal silhouette is unremarkable. Musculoskeletal: No acute osseous pathology. IMPRESSION: No acute cardiopulmonary disease/process.
--- NOTE | 2023-10-04 17:07 | CT ---
EXAMINATION TYPE: CT abdomen pelvis wo con CT DLP: 967.7 mGycm, Automated exposure control for dose reduction was used. DATE OF EXAM: 10/04/2023 3:45 PM COMPARISON: 02/04/2023. CLINICAL INDICATION:Male, 52 years old with history of sepsis; sepsis TECHNIQUE: Axial CT abdomen pelvis wo con;Sagittal and coronal reformats were created on a separate workstation. Contrast used: mL of , (none if empty) Oral contrast used: without Oral Contrast (none if empty) FINDINGS: LOWER CHEST: Right-sided rib fractures. ABDOMEN LIVER: Unremarkable GALLBLADDER AND BILE DUCTS: Unremarkable. PANCREAS: Unremarkable. SPLEEN: Unremarkable. ADRENAL GLANDS: Unremarkable. KIDNEYS AND URETERS: No evidence of hydronephrosis or renal calculus. The ureters are unremarkable. PELVIS BLADDER: Unremarkable REPRODUCTIVE: Unremarkable. ABDOMEN & PELVIS STOMACH AND BOWEL: No evidence of bowel obstruction. Wall thickening of the cecum extending to the re ctal wall with circumferential thickening. PERITONEUM/RETROPERITONEUM: No evidence of pneumoperitoneum or free fluid. VASCULATURE: No evidence of aortic aneurysm. MUSCULOSKELETAL: No acute osseous abnormalities LYMPH NODES: No gross evidence for lymphadenopathy. SOFT TISSUE/ABDOMINAL WALL: Unremarkable IMPRESSION: There is circumferential thickening of the colon throughout its entirety most compatible with colitis . Correlate for Pseudomonas colitis. No organizing fluid collection or free air.
[2023-10-04] MEDS ORDERED: NALOXONE 0.4 MG/ML 1 ML VIAL IV PRN (17:23)
[2023-10-04] MEDS: NOREPINEPHRINE 4 MG in SODIUM CHLORIDE 0.9% 250 ML IV ONE (17:55)
[2023-10-04] MEDS: SODIUM CHLORIDE 0.9% 500 ML 340 ML IV STA (18:07)
[2023-10-04] MEDS: metroNIDAZOLE-NS PMX 500 MG in SALINE 1 100ML.BAG IVPB SCH (18:21)
[2023-10-05] MEDS ORDERED: PIPERACILLIN-TAZOBACTAM 3.375 GM in SODIUM CHLORIDE 0.9% 100 ML IVPB SCH
[2023-10-05 00:55] LABS: Glucose,Whole Blood 130 mg/dL (70-110)
[2023-10-05 05:46] LABS: Basophils % (A) 0 %; Eosinophils # (A) 0.2 k/uL (0-0.7); Eosinophils % (A) 1 %; HCT 32.9 % (39.0-53.0); HGB 10.2 gm/dL (13.0-17.5); Hypochromasia Moderate; Lymphocytes # (A) 0.8 k/uL (1.0-4.8); Lymphocytes % (A) 4 %; MCH 30.3 pg (25.0-35.0); MCHC 30.9 g/dL (31.0-37.0); MCV 98.3 fL (80.0-100.0); Macrocytosis Slight; Mean Platelet Volume 8.9; Monocytes # (A) 1.1 k/uL (0-1.0); Monocytes % (A) 5 %; Neutrophils # (A) 19.3 k/uL (1.3-7.7); Neutrophils % (A) 88 %; Platelet Count 199 k/uL (150-450); RBC 3.35 m/uL (4.30-5.90); RDW 15.3 % (11.5-15.5); WBC 21.9 k/uL (3.8-10.6)
[2023-10-05 05:55] LABS: African American GFR (CKD) 27 (>60 ml/min/1.73 sqM); Anion Gap 11 mmol/L; Blood Urea Nitrogen 99 mg/dL (9-20); Calcium 8.8 mg/dL (8.4-10.2); Chloride 119 mmol/L (98-107); Glucose 192 mg/dL (74-99); Magnesium 2.3 mg/dL (1.6-2.3); Non-African American GFR(CKD) 23 (>60 ml/min/1.73 sqM); Potassium 4.6 mmol/L (3.5-5.1); Sodium 139 mmol/L (137-145)
[2023-10-05 05:56] LABS: Carbon Dioxide 9 mmol/L (22-30)
[2023-10-05] MEDS: SODIUM BICARB 8.4% 50 ML SYR (1 MEQ/ML) IV STA (09:35)
[2023-10-05] MEDS: SODIUM CHLORIDE 0.9% 500 ML 500 ML IV ONE (09:36)
--- NOTE | 2023-10-05 10:10 | P.NPCON ---
History of Present Illness - Reason for Consult acute renal failure - History of Present Illness Reason for consultation: Acute kidney injury History of present illness: Patient is a 52-year-old male seen in renal consultation for acute kidney injury. Patient's creatinine on September 10, 2023 was 0.9. It was elevated at 4.38 on October 01, 2023 and is down to 2.96 today. Patient was recently diagnosed with C. difficile colitis and was being treated for it outpatient. Patient was found to be weak and febrile and was brought to the hospital. He was noted to be hypotensive. Patient did receive fluid bolus and is currently maintained on bicarb drip. He is also on Levophed. Urine output has been about 100 cc an hour. He is having multiple loose bowel movements according to nurse. Patient does have history of diabetes. I do not see any NSAIDs on his home medication list. I do see Lasix 40 mg once daily on his outpatient medication list but it is currently not been given. Patient is a poor historian. Oral intake is just fair. Vital signs are stable. On vasopressor support. General: Resting in bed. Lethargic. HEENT: Head exam is unremarkable. LUNGS: No audible rhonchi or wheezes. HEART: Rate and Rhythm are regular. ABDOMEN: Nontender. EXTREMITITES: No edema. Past Medical History Past Medical History: Diabetes Mellitus, Hyperlipidemia, Hypertension Additional Past Medical History / Comment(s): STATES SORE ON THE BOTTOM OF LEFT FOOT. History of Any Multi-Drug Resistant Organisms: C-DIFF, MRSA, VRE Date of last positivie culture/infection: MRSA 05/14/23; VRE 10/02/22 MDRO Source:: Right Foot-MRSA; Abdomen-VRE Past Surgical History: Hernia Repair Past Anesthesia/Blood Transfusion Reactions: No Reported Reaction Additional Past Anesthesia/Blood Transfusion Reaction / Comment(s): PT HAS NEVER RECEIVED ANESTHESIA. Past Psychological History: Anxiety Smoking Status: Former smoker Past Alcohol Use History: Occasional Past Drug Use History: None Reported - Past Family History Mother Family Medical History: Diabetes Mellitus Father Family Medical History: Cancer Medications and Allergies Home Medications Medication Instructions Recorded Confirmed Type HYDROcodone/APAP 7.5-325MG [[place] 1 tab PO Q4H PRN 11/09/21 10/04/23 History 7.5-325] Simvastatin [Zocor] 20 mg PO HS 11/09/21 10/04/23 History sitaGLIPtin [Januvia] 100 mg PO DAILY 11/09/21 10/04/23 History Famotidine 20 mg PO HS 07/01/22 10/04/23 History Sevelamer [Renvela] 800 mg PO W/SUPPER 07/01/22 10/04/23 History Ergocalciferol [Vitamin D2 (1250 1,250 mcg PO TU 10/01/22 10/04/23 History Mcg = 08827 Iu)] Furosemide [Lasix] 40 mg PO DAILY 05/14/23 10/04/23 History Multivitamins, Thera [Multivitamin 1 tab PO DAILY 05/14/23 10/04/23 History (formulary)] Pregabalin [Lyrica] 200 mg PO TID 05/14/23 10/04/23 History ALPRAZolam [Xanax] 0.25 mg PO Q6HR PRN tab 09/05/23 10/04/23 Rx Metoprolol Tartrate [Lopressor] 25 mg PO BID tab 09/05/23 10/04/23 Rx Pioglitazone [Actos] 30 mg PO DAILY tab 09/05/23 10/04/23 Rx Tamsulosin [Flomax] 0.4 mg PO DAILY cap 09/05/23 10/04/23 Rx Cholestyramine (with Sugar) 4 gm PO HS 10/04/23 10/04/23 History [Questran] Ferrous Sulfate [Feosol] 325 mg PO DAILY@0800 10/04/23 10/04/23 History HYDROcodone/APAP 10-325MG [[place] 1 tab PO Q6HR PRN 10/04/23 10/04/23 History 10-325] INSULIN ASPART (NovoLOG) [NovoLOG 15 unit SQ AC-TID 10/04/23 10/04/23 History (formulary)] Insulin Detemir [Levemir Flexpen] 10 unit SQ DAILY 10/04/23 10/04/23 History Insulin Detemir [Levemir Flexpen] 30 units SQ HS 10/04/23 10/04/23 History Ipratropium-Albuterol Nebulize 3 ml INHALATION RT-Q6H PRN 10/04/23 10/04/23 History [Duoneb 0.5 mg-3 mg/3 ml Soln] L.acidoph,Paracasei, B.lactis 1 cap PO BID 10/04/23 10/04/23 History [Probiotic] Loperamide HCl [Imodium A-D] 2 - 4 mg PO QID PRN 10/04/23 10/04/23 History Naloxone HCl [Narcan] 4 mg NASAL DIRECTED PRN 10/04/23 10/04/23 History Ondansetron [Zofran] 4 mg PO Q8H PRN 10/04/23 10/04/23 History Psyllium Husk (with Sugar) 1 tbsp PO HS 10/04/23 10/04/23 History [Metamucil Powder] Sodium Bicarbonate Tab 650 mg PO BID@0800,1600 10/04/23 10/04/23 History metroNIDAZOLE [Flagyl] 500 mg PO TID@0800,1200,1800 10/04/23 10/04/23 History Allergies Allergy/AdvReac Type Severity Reaction Status Date / Time No Known Allergies Allergy Verified 10/04/23 15:00 Physical Exam Vitals: Vital Signs Temp Pulse Resp BP Pulse Ox 10/05/23 07:00 100 14 102/52 98 10/05/23 06:45 104 H 15 91/41 93 L 10/05/23 06:30 103 H 10 L 100/47 96 10/05/23 06:15 104 H 16 92/43 96 10/05/23 06:00 101 H 14 117/54 96 10/05/23 05:45 104 H 15 118/48 98 10/05/23 05:30 102 H 17 83/43 98 10/05/23 05:15 97 14 89/38 99 10/05/23 05:00 98 14 94/40 99 10/05/23 04:45 98 16 89/40 98 10/05/23 04:30 98 14 88/38 98 10/05/23 04:15 93 13 81/42 100 10/05/23 04:00 98.3 F 95 14 95/60 100 10/05/23 03:45 97 16 111/43 99 10/05/23 03:30 101 H 8 L 100 10/05/23 03:15 101 H 14 103/51 96 10/05/23 03:00 98 16 88/63 98 10/05/23 02:45 98 14 115/58 100 10/05/23 02:30 100 13 90/69 99 10/05/23 02:15 98 12 96/72 94 L 10/05/23 02:00 96 10 L 98/57 98 10/05/23 01:45 93 14 96/47 98 10/05/23 01:30 93 15 88/47 99 10/05/23 01:15 94 14 70 L 10/05/23 01:00 95 15 93/53 96 10/05/23 00:56 97 20 99/54 97 10/05/23 00:51 84/49 10/04/23 22:31 93 20 109/53 96 10/04/23 18:45 90 18 107/51 99 10/04/23 18:27 93 16 99/53 96 10/04/23 18:00 99.3 F 93 18 75/47 98 10/04/23 17:55 95 20 93/50 100 10/04/23 16:57 87 20 88/47 99 10/04/23 16:11 85 20 91/47 95 10/04/23 14:13 99.3 F 100 18 89/46 94 L Intake and Output 10/04/23 10/05/23 10/05/23 22:59 06:59 14:59 Intake Total 882.024 975 Output Total 2700 260 Balance -1817.976 715 Intake: IV 750 975 Dextrose 5% in Water 1, 750 375 000 ml @ 125 mls/hr IV . Q9H12M CARL with Sodium Bicarb (1 Meq/ml) 150 ml Rx#:[id number] Sodium Chloride 0.9% 500 500 ml 500 ml @ 999 mls/hr IV .Q31M ONE Rx#:[id number] metroNIDAZOLE-NS PMX 500 100 mg In Saline 1 100ml.bag @ 100 mls/hr IVPB QID CARL Rx#:[id number] Intake, IV Titration 132.024 Amount Norepinephrine 4 mg In 132.024 Sodium Chloride 0.9% 250 ml @ 0.03 MCG/KG/MIN 11. 199 mls/hr IV .[id number] ONE Rx#:[id number] Output: Urine 1350 260 Post Void Residual 1350 Other: Voiding Method External Catheter Indwelling Catheter # Bowel Movements 1 1 Weight 97.976 kg 99.6 kg Results - Lab Results Most recent lab results Calcium 8.8 mg/dL (8.4-10.2) 10/05/23 05:31 Magnesium 2.3 mg/dL (1.6-2.3) 10/05/23 05:31 10/05/23 05:31 10/05/23 05:31 Assessment and Plan Plan: Assessment: 1. Acute kidney injury secondary to ATN secondary to hypotension and hypovolemia. Creatinine 4.38 dated October 01, 2023 and was 3.52 yesterday. It is 2.96 today. Baseline creatinine near 1. No hydronephrosis noted on CT. 2. C. difficile colitis maintained on oral vancomycin. 3. Metabolic acidosis secondary to acute kidney injury and GI losses. 4. Septic shock on Levophed. Plan: Maintain bicarb drip. Will also give sodium bicarb IV push. Check UA. Avoid nephrotoxins. Continue to monitor renal function and urine output. Thank you for the consultation. I will continue to follow the patient with you during his hospital stay.
[2023-10-05] MEDS: VANCOMYCIN ORAL SOLUTION 250 MG/5 ML BOTTLE PO SCH (10:15)
--- NOTE | 2023-10-05 11:50 | P.CNPUL ---
History of Present Illness Consult date: 10/05/23 Requesting physician: [facility] Reason for consult: other Chief complaint: Hypotension. History of present illness: Pulmonary/Critical care consult dated October 05, 2023. 52-year-old male who is seen in the emergency department, October 04, 2023. The patient came in with weakness, mental status changes, and suspected sepsis. The patient recently had a left below the knee amputation, done by Dr. Domínguez, on September 02. 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 The patient was discharged after number days to a local senior care. He came back into the emergency department as mentioned on October 03. He was being treated for a C. difficile infection. He apparently was noted to be febrile, lethargic, and weak, with a low blood pressure. For that reason, he was sent in to the emergency department, and brought in by EMS. I was called by the emergency room physician, who did fluid resuscitation initially, but then started him on some norepinephrine. For that reason, the patient necessitated an admission to the intensive care unit. Currently he is on 2 L of oxygen. He is given D5W with 3 ampoules of sodium bicarb and at 125 cc an hour. His norepinephrine dose is 4 mcg/min. He is currently on IV Flagyl, and oral vancomycin for his C. difficile infection. White count is 21.9, hemoglobin 10.2, hematocrit 32.9, platelet count 199,000. Sodium 139, potassium 4.6, chlorides 119, CO2 9, BUN 99, creatinine 2.96. Glucose is 192. Calcium 8.8, magnesium 2.3. He did test positive here for C. difficile. Chest x-ray is read as normal here. CT of the abdomen and pelvis shows circumferential thickening of the colon throughout its entire length, most compatible with colitis. Review of Systems REVIEW OF SYSTEMS: CONSTITUTIONAL: Weakness. NEUROLOGIC: Mental status changes. HEENT: [ Negative.] CARDIAC: Hypotension. PULMONARY: [Negative.] GI: C. difficile colitis. : [Negative.] RHEUMATOLOGIC: [ Negative.] IMMUNOLOGIC: [ Negative.] ENDOCRINE: [Negative. ] DERMATOLOGIC: [Negative.] Past Medical History Past Medical History: Diabetes Mellitus, Hyperlipidemia, Hypertension Additional Past Medical History / Comment(s): STATES SORE ON THE BOTTOM OF LEFT FOOT. History of Any Multi-Drug Resistant Organisms: C-DIFF, MRSA, VRE Date of last positivie culture/infection: MRSA 05/14/23; VRE 10/02/22 MDRO Source:: Right Foot-MRSA; Abdomen-VRE Past Surgical History: Hernia Repair Past Anesthesia/Blood Transfusion Reactions: No Reported Reaction Additional Past Anesthesia/Blood Transfusion Reaction / Comment(s): PT HAS NEVER RECEIVED ANESTHESIA. Past Psychological History: Anxiety Smoking Status: Former smoker Past Alcohol Use History: Occasional Past Drug Use History: None Reported - Past Family History Mother Family Medical History: Diabetes Mellitus Father Family Medical History: Cancer Medications and Allergies Home Medications Medication Instructions Recorded Confirmed Type HYDROcodone/APAP 7.5-325MG [[place] 1 tab PO Q4H PRN 11/09/21 10/04/23 History 7.5-325] Simvastatin [Zocor] 20 mg PO HS 11/09/21 10/04/23 History sitaGLIPtin [Januvia] 100 mg PO DAILY 11/09/21 10/04/23 History Famotidine 20 mg PO HS 07/01/22 10/04/23 History Sevelamer [Renvela] 800 mg PO W/SUPPER 07/01/22 10/04/23 History Ergocalciferol [Vitamin D2 (1250 1,250 mcg PO TU 10/01/22 10/04/23 History Mcg = 97610 Iu)] Furosemide [Lasix] 40 mg PO DAILY 05/14/23 10/04/23 History Multivitamins, Thera [Multivitamin 1 tab PO DAILY 05/14/23 10/04/23 History (formulary)] Pregabalin [Lyrica] 200 mg PO TID 05/14/23 10/04/23 History ALPRAZolam [Xanax] 0.25 mg PO Q6HR PRN tab 09/05/23 10/04/23 Rx Metoprolol Tartrate [Lopressor] 25 mg PO BID tab 09/05/23 10/04/23 Rx Pioglitazone [Actos] 30 mg PO DAILY tab 09/05/23 10/04/23 Rx Tamsulosin [Flomax] 0.4 mg PO DAILY cap 09/05/23 10/04/23 Rx Cholestyramine (with Sugar) 4 gm PO HS 10/04/23 10/04/23 History [Questran] Ferrous Sulfate [Feosol] 325 mg PO DAILY@0800 10/04/23 10/04/23 History HYDROcodone/APAP 10-325MG [[place] 1 tab PO Q6HR PRN 10/04/23 10/04/23 History 10-325] INSULIN ASPART (NovoLOG) [NovoLOG 15 unit SQ AC-TID 10/04/23 10/04/23 History (formulary)] Insulin Detemir [Levemir Flexpen] 10 unit SQ DAILY 10/04/23 10/04/23 History Insulin Detemir [Levemir Flexpen] 30 units SQ HS 10/04/23 10/04/23 History Ipratropium-Albuterol Nebulize 3 ml INHALATION RT-Q6H PRN 10/04/23 10/04/23 History [Duoneb 0.5 mg-3 mg/3 ml Soln] L.acidoph,Paracasei, B.lactis 1 cap PO BID 10/04/23 10/04/23 History [Probiotic] Loperamide HCl [Imodium A-D] 2 - 4 mg PO QID PRN 10/04/23 10/04/23 History Naloxone HCl [Narcan] 4 mg NASAL DIRECTED PRN 10/04/23 10/04/23 History Ondansetron [Zofran] 4 mg PO Q8H PRN 10/04/23 10/04/23 History Psyllium Husk (with Sugar) 1 tbsp PO HS 10/04/23 10/04/23 History [Metamucil Powder] Sodium Bicarbonate Tab 650 mg PO BID@0800,1600 10/04/23 10/04/23 History metroNIDAZOLE [Flagyl] 500 mg PO TID@0800,1200,1800 10/04/23 10/04/23 History Allergies Allergy/AdvReac Type Severity Reaction Status Date / Time No Known Allergies Allergy Verified 10/04/23 15:00 Physical Exam Osteopathic Statement: *. No significant issues noted on an osteopathic struct ural exam other than those noted in the History and Physical/Consult. Vitals: Vital Signs Temp Pulse Resp BP Pulse Ox 10/05/23 10:30 112 H 19 98/49 96 10/05/23 10:15 112 H 19 109/46 97 10/05/23 10:00 106 H 15 98 10/05/23 09:45 106 H 18 100/51 97 10/05/23 09:30 105 H 16 109/53 96 10/05/23 09:15 112 H 13 101/41 95 10/05/23 09:00 107 H 14 110/49 99 10/05/23 08:45 110 H 14 84/43 97 10/05/23 08:30 102 H 15 87/45 97 10/05/23 08:15 103 H 15 98/46 97 10/05/23 08:00 98.4 F 105 H 16 86/47 97 10/05/23 07:45 103 H 14 103/47 97 10/05/23 07:30 105 H 13 87/45 98 10/05/23 07:15 100 14 97/46 96 10/05/23 07:00 100 14 102/52 98 10/05/23 06:45 104 H 15 91/41 93 L 10/05/23 06:30 103 H 10 L 100/47 96 10/05/23 06:15 104 H 16 92/43 96 10/05/23 06:00 101 H 14 117/54 96 10/05/23 05:45 104 H 15 118/48 98 10/05/23 05:30 102 H 17 83/43 98 10/05/23 05:15 97 14 89/38 99 10/05/23 05:00 98 14 94/40 99 10/05/23 04:45 98 16 89/40 98 10/05/23 04:30 98 14 88/38 98 10/05/23 04:15 93 13 81/42 100 10/05/23 04:00 98.3 F 95 14 95/60 100 10/05/23 03:45 97 16 111/43 99 10/05/23 03:30 101 H 8 L 100 10/05/23 03:15 101 H 14 103/51 96 10/05/23 03:00 98 16 88/63 98 10/05/23 02:45 98 14 115/58 100 10/05/23 02:30 100 13 90/69 99 10/05/23 02:15 98 12 96/72 94 L 10/05/23 02:00 96 10 L 98/57 98 10/05/23 01:45 93 14 96/47 98 10/05/23 01:30 93 15 88/47 99 06/09/24 01:15 94 14 70 L 10/05/23 01:00 95 15 93/53 96 10/05/23 00:56 97 20 99/54 97 10/05/23 00:51 84/49 10/04/23 22:31 93 20 109/53 96 10/04/23 18:45 90 18 107/51 99 10/04/23 18:27 93 16 99/53 96 10/04/23 18:00 99.3 F 93 18 75/47 98 10/04/23 17:55 95 20 93/50 100 10/04/23 16:57 87 20 88/47 99 10/04/23 16:11 85 20 91/47 95 10/04/23 14:13 99.3 F 100 18 89/46 94 L Intake and Output 10/04/23 10/05/23 10/05/23 22:59 06:59 14:59 Intake Total 723.163 1633.668 Output Total 2700 610 Balance -1817.976 576.668 Intake: IV 750 1100 Dextrose 5% in Water 1, 750 500 000 ml @ 125 mls/hr IV . Q9H12M CARL with Sodium Bicarb (1 Meq/ml) 150 ml Rx#:[id number] Sodium Chloride 0.9% 500 500 ml 500 ml @ 999 mls/hr IV .Q31M ONE Rx#:[id number] metroNIDAZOLE-NS PMX 500 100 mg In Saline 1 100ml.bag @ 100 mls/hr IVPB QID CARL Rx#:[id number] Intake, IV Titration 132.024 86.668 Amount Norepinephrine 4 mg In 132.024 86.668 Sodium Chloride 0.9% 250 ml @ 0.03 MCG/KG/MIN 11. 199 mls/hr IV .[id number] ONE Rx#:[id number] Output: Urine 1350 610 Post Void Residual 1350 Other: Voiding Method External Catheter Indwelling Catheter # Bowel Movements 1 1 Weight 97.976 kg 99.6 kg No acute distress, oriented 3. Currently on nasal O2 at 2 L. No respiratory distress. HEENT examination is grossly unremarkable. Neck supple. Full range of motion. No adenopathy thyromegaly or neck vein distention. Cardiovascular examination reveals regular rhythm rate. S1-S2 normal. No S3 or S4. No discernible murmur noted. Heart rate is 100 bpm. Lungs reveal clear breath sounds. Breath sounds are equal bilaterally. No adventitious lung sounds including wheezes rhonchi or crackles. Saturations are 98%. Abdomen soft with bowel sounds. No masses or tenderness. Extremities are intact. No cyanosis clubbing or edema. Skin is without rash or lesion. Neurologic examination is brief but nonfocal. Results - Laboratory Findings CBC and BMP: 10/05/23 05:31 10/05/23 05:31 PT/INR, D-dimer PT 12.0 sec (10.0-12.5) 10/04/23 14:28 INR 1.1 (<1.2) 10/04/23 14:28 Abnormal lab findings: Abnormal Labs 10/04/23 10/04/23 10/04/23 14:28 14:28 15:43 WBC 16.6 H RBC 3.21 L Hgb 9.6 L Hct 30.7 L MCHC Neutrophils # 14.2 H Lymphocytes # 0.8 L Monocytes # Sodium 136 L Chloride 118 H Carbon Dioxide 9 L* BUN 111 H* Creatinine 3.52 H Glucose POC Glucose (mg/dL) Total Protein 5.4 L Albumin 2.6 L C. difficile (EIA) Intrp Positive A 10/05/23 10/05/23 10/05/23 00:53 05:31 05:31 WBC 21.9 H RBC 3.35 L Hgb 10.2 L Hct 32.9 L MCHC 30.9 L Neutrophils # 19.3 H Lymphocytes # 0.8 L Monocytes # 1.1 H Sodium Chloride 119 H Carbon Dioxide 9 L* BUN 99 H Creatinine 2.96 H Glucose 192 H POC Glucose (mg/dL) 130 H Total Protein Albumin C. difficile (EIA) Intrp - Diagnostic Findings Chest x-ray: image reviewed Assessment and Plan Assessment: Hypotension, secondary to severe diarrhea, from C. difficile colitis. Acute mental status changes, likely on the basis of septic encephalopathy. Anion gap metabolic acidosis. Acute kidney injury. Recent left BKA, September 03, 2023. History of diabetes mellitus. History of hypertension. History of hyperlipidemia. Nonhealing ulcer, left lower extremity, with subsequent left BKA. Prior history of methicillin-resistant Staph aureus infection, and VRE infection. Plan: Plan dated October 05, 2023. The patient was admitted to the intensive care unit. He has been fluid resuscitated. He is currently on 2 L. He is getting a sodium bicarbonate drip. He is on norepinephrine at 4 mcg/min. He is receiving oral vancomycin, and IV Flagyl. He had a left below the knee amputation, on September 02, by Dr. Domínguez. We will continue to follow the patient, make recommendations along the way. Labs, x-rays, and mom medications are reviewed. The patient's overall prognosis remains very guarded. Time with Patient: Greater than 30
[2023-10-05] MEDS ORDERED: DEXTROSE 50% SYRINGE 50 ML IVP PRN ×2 (12:14)
[2023-10-05 12:17] LABS: Glucose,Whole Blood 341 mg/dL (70-110)
[2023-10-05] MEDS: INSULIN ASPART (NovoLOG) 100 UNIT/ML VIAL SQ SCH ×2 (13:17→20:33)
[2023-10-05 14:46] LABS: Appearance,Urine Clear (Clear); Bilirubin,Urine Negative (Negative); Blood,Urine Negative (Negative); Color,Urine Colorless; Glucose,Urine (UA) 4+ (Negative); Ketones,Urine Negative (Negative); Leukocyte Esterase,Urine Negative (Negative); Nitrite,Urine Negative (Negative); PH, Urine 5.5 (5.0-8.0); Protein,Urine Trace (Negative); Specific Gravity,Urine 1.012 (1.001-1.035); Urobilinogen,Urine <2.0 mg/dL (<2.0)
[2023-10-05 16:38] LABS: Glucose,Whole Blood 347 mg/dL (70-110)
[2023-10-05] MEDS: HEPARIN SODIUM,PORCINE 5,000 UNIT/ML 1 ML VIAL SQ SCH (16:41)
--- NOTE | 2023-10-05 16:59 | P.CONS ---
History of Present Illness - Reason for Consult Consult date: 10/05/23 SIRS/sepsis Requesting physician: Vikram Coffman - Chief Complaint Fever and weakness x few days - History of Present Illness Patient is a 52-year-old male past medical history significant for diabetes mellitus hypertension hyperlipidemia patient did have a history of left diabetic foot infection with underlying osteomyelitis failing medical therapy and did have a recent amputation left below the knee patient was brought into the hospital yesterday afternoon from the local care home resident of care home resident with the patient being febrile lethargic and weak and her blood pressure has been running low, apparently the patient has been treated for C. difficile colitis at that facility, patient mention having diarrhea going up couple of weeks now he is having loose stool multiple times per day patient has been little mucus in the stool has been complaining of some crampy lower abdominal pain mild to moderate intensity without radiation patient on presentation to the hospital hemoglobin fever of 99.3 F patient was mildly tachycardic and hypotensive requiring admission to the ICU patient is currently on 2 L nasal oxygen patient did have a white count of 21.9 with a left shift BUN of 99 creatinine is 2.96 urine has been negative stool. If positive patient did received IV vancomycin and Zosyn in the ER subsequently has been started on IV Flagyl infectious disease was consulted for further management of antibiotic therapy Review of Systems Positive point and negatives has been mentioned in the HPI, complete review of systems was performed and all other systems are negative Past Medical History Past Medical History: Diabetes Mellitus, Hyperlipidemia, Hypertension Additional Past Medical History / Comment(s): STATES SORE ON THE BOTTOM OF LEFT FOOT. 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 Past Psychological History: Anxiety Smoking Status: Former smoker Past Alcohol Use History: Occasional Past Drug Use History: None Reported - Past Family History Mother Family Medical History: Diabetes Mellitus Father Family Medical History: Cancer Medications and Allergies Home Medications Medication Instructions Recorded Confirmed Type Famotidine 20 mg PO HS 07/01/22 10/04/23 History Ergocalciferol [Vitamin D2 (1250 1,250 mcg PO TU 10/01/22 10/04/23 History Mcg = 12927 Iu)] Multivitamins, Thera [Multivitamin 1 tab PO DAILY 05/14/23 10/04/23 History (formulary)] Pregabalin [Lyrica] 200 mg PO TID 05/14/23 10/04/23 History ALPRAZolam [Xanax] 0.25 mg PO Q6HR PRN tab 09/05/23 10/04/23 Rx Metoprolol Tartrate [Lopressor] 25 mg PO BID tab 09/05/23 10/04/23 Rx Tamsulosin [Flomax] 0.4 mg PO DAILY cap 09/05/23 10/04/23 Rx Ferrous Sulfate [Iron (65 MG 325 mg PO DAILY@0800 10/04/23 10/04/23 History Elemental)] Insulin Detemir [Levemir Flexpen] 10 unit SQ DAILY 10/04/23 10/04/23 History Ipratropium-Albuterol Nebulize 3 ml INHALATION RT-Q6H PRN 10/04/23 10/04/23 History [Duoneb 0.5 mg-3 mg/3 ml Soln] L.acidoph,Paracasei, B.lactis 1 cap PO BID 10/04/23 10/04/23 History [Probiotic] Loperamide HCl [Imodium A-D] 2 - 4 mg PO QID PRN 10/04/23 10/04/23 History Ondansetron [Zofran] 4 mg PO Q8H PRN 10/04/23 10/04/23 History Psyllium Husk (with Sugar) 1 tbsp PO HS 10/04/23 10/04/23 History [Metamucil Powder] Acetaminophen Tab [Tylenol] 650 mg PO Q6HR PRN tab 10/24/23 Rx Atorvastatin [Lipitor] 10 mg PO HS tab 10/24/23 Rx Bismuth Subsalicylate [Bismatrol] 524 mg PO ACHS ml 10/24/23 Rx Calcium Carbonate [Tums] 1,000 mg PO TID PRN tab 10/24/23 Rx Carbamide Peroxide [Debrox Otic] 5 drops LEFT EAR BID ml 10/24/23 Rx Cholestyramine (with Sugar) 4 gm PO BID@1200,1800 packet 10/24/23 Rx [Questran Packet] Collagenase [Santyl Ointment] 1 applic TOPICAL DAILY each 10/24/23 Rx Furosemide [Lasix] 20 mg PO DAILY tab 10/24/23 Rx HYDROcodone/APAP 7.5-325MG [[place] 1 each PO Q6HR PRN tab 10/24/23 Rx 7.5-325] INSULIN ASPART (NovoLOG) [NovoLOG 0 unit SQ ACHS each 10/24/23 Rx (formulary)] INSULIN ASPART (NovoLOG) [NovoLOG 5 unit SQ ACHS each 10/24/23 Rx (formulary)] Insulin Detemir (Levemir) [Levemir] 30 unit SQ HS each 10/24/23 Rx Montelukast [Singulair] 10 mg PO HS tab 10/24/23 Rx Nystatin 100,000Unit/gm Cream 1 applic TOPICAL BID each 10/24/23 Rx [Mycostatin Cream] Potassium Chloride ER [K-Dur 10] 10 meq PO DAILY tab 10/24/23 Rx Sodium Bicarbonate Tab 650 mg PO TID tab 10/24/23 Rx Sucralfate [Carafate] 1 gm PO AC-BID tab 10/24/23 Rx Allergies Allergy/AdvReac Type Severity Reaction Status Date / Time No Known Allergies Allergy Verified 10/04/23 15:00 Physical Exam Vitals: Vital Signs Temp Pulse Resp BP Pulse Ox 10/05/23 07:00 100 14 102/52 98 10/05/23 06:45 104 H 15 91/41 93 L 10/05/23 06:30 103 H 10 L 100/47 96 10/05/23 06:15 104 H 16 92/43 96 10/05/23 06:00 101 H 14 117/54 96 10/05/23 05:45 104 H 15 118/48 98 10/05/23 05:30 102 H 17 83/43 98 10/05/23 05:15 97 14 89/38 99 10/05/23 05:00 98 14 94/40 99 10/05/23 04:45 98 16 89/40 98 10/05/23 04:30 98 14 88/38 98 10/05/23 04:15 93 13 81/42 100 10/05/23 04:00 98.3 F 95 14 95/60 100 10/05/23 03:45 97 16 111/43 99 10/05/23 03:30 101 H 8 L 100 10/05/23 03:15 101 H 14 103/51 96 10/05/23 03:00 98 16 88/63 98 10/05/23 02:45 98 14 115/58 100 10/05/23 02:30 100 13 90/69 99 10/05/23 02:15 98 12 96/72 94 L 10/05/23 02:00 96 10 L 98/57 98 10/05/23 01:45 93 14 96/47 98 10/05/23 01:30 93 15 88/47 99 10/05/23 01:15 94 14 70 L 10/05/23 01:00 95 15 93/53 96 10/05/23 00:56 97 20 99/54 97 10/05/23 00:51 84/49 10/04/23 22:31 93 20 109/53 96 10/04/23 18:45 90 18 107/51 99 10/04/23 18:27 93 16 99/53 96 10/04/23 18:00 99.3 F 93 18 75/47 98 10/04/23 17:55 95 20 93/50 100 10/04/23 16:57 87 20 88/47 99 10/04/23 16:11 85 20 91/47 95 10/04/23 14:13 99.3 F 100 18 89/46 94 L Intake and Output 10/04/23 10/05/23 10/05/23 22:59 06:59 14:59 Intake Total 882.024 125 Output Total 2700 60 Balance -1817.976 65 Intake: IV 750 125 Dextrose 5% in Water 1, 750 125 000 ml @ 125 mls/hr IV . Q9H12M CARL with Sodium Bicarb (1 Meq/ml) 150 ml Rx#:[id number] Intake, IV Titration 132.024 Amount Norepinephrine 4 mg In 132.024 Sodium Chloride 0.9% 250 ml @ 0.03 MCG/KG/MIN 11. 199 mls/hr IV .[id number] ONE Rx#:[id number] Output: Urine 1350 60 Post Void Residual 1350 Other: Voiding Method External Catheter # Bowel Movements 1 1 Weight 97.976 kg 99.6 kg GENERAL DESCRIPTION: Middle-aged male lying in bed, no distress. No tachypnea or accessory muscle of respiration use. HEENT: Shows Pallor , no scleral icterus. Oral mucous membrane is dry. NECK: Trachea central, no thyromegaly. LUNGS: Unlabored breathing. Decreased breath sound the base HEART: S1, S2, regular rate and rhythm. No loud murmur ABDOMEN: Soft, mild tenderness , no guarding or rigidity EXTREMITIES: Left BKA stump small wound but no slough tissue and redness SKIN: No rash, no masses palpable. NEUROLOGICAL: The patient is awake, alert, oriented x3, mood and affect normal. Results CBC & Chem 7: 10/28/23 04:52 10/28/23 04:52 Labs: Abnormal Lab Results - Last 24 Hours (Table) 10/04/23 10/04/23 10/04/23 Range/Units 14:28 14:28 15:43 WBC 16.6 H (3.8-10.6) k/uL RBC 3.21 L (4.30-5.90) m/uL Hgb 9.6 L (13.0-17.5) gm/dL Hct 30.7 L (39.0-53.0) % MCHC (31.0-37.0) g/dL Neutrophils # 14.2 H (1.3-7.7) k/uL Lymphocytes # 0.8 L (1.0-4.8) k/uL Monocytes # (0-1.0) k/uL Sodium 136 L (137-145) mmol/L Chloride 118 H (98-107) mmol/L Carbon Dioxide 9 L* (22-30) mmol/L BUN 111 H* (9-20) mg/dL Creatinine 3.52 H (0.66-1.25) mg/dL Glucose (74-99) mg/dL POC Glucose (mg/dL) (70-110) mg/dL Total Protein 5.4 L (6.3-8.2) g/dL Albumin 2.6 L (3.5-5.0) g/dL C. difficile (EIA) Intrp Positive A (Negative) 10/05/23 10/05/23 10/05/23 Range/Units 00:53 05:31 05:31 WBC 21.9 H (3.8-10.6) k/uL RBC 3.35 L (4.30-5.90) m/uL Hgb 10.2 L (13.0-17.5) gm/dL Hct 32.9 L (39.0-53.0) % MCHC 30.9 L (31.0-37.0) g/dL Neutrophils # 19.3 H (1.3-7.7) k/uL Lymphocytes # 0.8 L (1.0-4.8) k/uL Monocytes # 1.1 H (0-1.0) k/uL Sodium (137-145) mmol/L Chloride 119 H (98-107) mmol/L Carbon Dioxide 9 L* (22-30) mmol/L BUN 99 H (9-20) mg/dL Creatinine 2.96 H (0.66-1.25) mg/dL Glucose 192 H (74-99) mg/dL POC Glucose (mg/dL) 130 H (70-110) mg/dL Total Protein (6.3-8.2) g/dL Albumin (3.5-5.0) g/dL C. difficile (EIA) Intrp (Negative) Assessment and Plan (1) C. difficile colitis Status: Acute Code(s): A04.72 - ENTEROCOLITIS D/T CLOSTRIDIUM DIFFICILE, NOT SPCF RECUR SNOMED Code(s): 508781104 (2) Sepsis Status: Acute Code(s): A41.9 - SEPSIS, UNSPECIFIED ORGANISM SNOMED Code(s): 92488622 Plan: 1patient presented to the hospital with sepsis in this patient who did have hypotension tachycardia low-grade fever and elevated white count medically clear for SIRS/sepsis source is severe C. difficile colitis failing outpatient treatment 2-patient to continue with the IV Flagyl however we will add vancomycin 500 mg every 6 hours 3-avoid antimotility agents We will follow on clinical condition and cultures to further adjust medication if needed Thank you for this consultation we will follow the patient along with you Dictation was produced using [employer] dictation software. please excuse any grammatical, word or spelling errors. Time with Patient: Greater than 30
[2023-10-05] MEDS ORDERED: IPRATROPIUM-ALBUTEROL 3 ML NEB INHALATION PRN (17:29)
[2023-10-05] MEDS: INSULIN DETEMIR (LEVEMIR) 100 UNIT/ML SYR SQ SCH ×2 (19:05→20:33)
[2023-10-05] MEDS: FAMOTIDINE 20 MG TAB PO SCH (19:05)
[2023-10-05] MEDS: SEVELAMER 800 MG TAB PO SCH (19:05)
[2023-10-05 20:21] LABS: Glucose,Whole Blood 383 mg/dL (70-110)
[2023-10-05] MEDS: ATORVASTATIN 10 MG TAB PO SCH (20:33)
[2023-10-05] MEDS: PREGABALIN 100 MG CAP PO SCH (20:33)
[2023-10-05] MEDS: MONTELUKAST 10 MG TAB PO SCH (20:33)
[2023-10-05] MEDS: METOPROLOL TARTRATE 25 MG TAB PO SCH (20:33)
[2023-10-05] MEDS ORDERED: FAMOTIDINE 20 MG TAB PO SCH (21:00)
[2023-10-06 02:56] LABS: HCT 32.4 % (39.0-53.0); HGB 10.3 gm/dL (13.0-17.5); Hypochromasia Slight; MCH 30.2 pg (25.0-35.0); MCHC 31.8 g/dL (31.0-37.0); MCV 94.8 fL (80.0-100.0); Mean Platelet Volume 9.1; Platelet Count 203 k/uL (150-450); RBC 3.42 m/uL (4.30-5.90); RDW 15.5 % (11.5-15.5); WBC 23.4 k/uL (3.8-10.6)
[2023-10-06 03:23] LABS: ALT 9 U/L (4-49); AST 12 U/L (17-59); African American GFR (CKD) 45 (>60 ml/min/1.73 sqM); Albumin 2.3 g/dL (3.5-5.0); Alkaline Phosphatase 66 U/L (38-126); Anion Gap 5 mmol/L; Blood Urea Nitrogen 80 mg/dL (9-20); Carbon Dioxide 21 mmol/L (22-30); Chloride 114 mmol/L (98-107); Glucose 309 mg/dL (74-99); Non-African American GFR(CKD) 39 (>60 ml/min/1.73 sqM); Potassium 3.8 mmol/L (3.5-5.1); Sodium 140 mmol/L (137-145); Total Bilirubin 0.4 mg/dL (0.2-1.3); Total Protein 4.7 g/dL (6.3-8.2)
--- NOTE | 2023-10-06 04:15 | HP ---
HISTORY AND PHYSICAL HISTORY OF PRESENT ILLNESS: Seen in the ER. He is admitted for sepsis for Pseudomonas canadensis, came from the hospital status post knee amputation for his diabetic wound infection of severe nature by Dr. 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 Has been treated for C difficile colitis. CAT scan of his brain shows acute on chronic sinus issues. He went to the ICU as he did rapid fluid resuscitation initially with acute tubular necrosis with renal insufficiency. He was given D5W with 3 amps of sodium bicarb at 125 mL an hour. He was placed on norepinephrine drip. He is on IV Flagyl, oral vancomycin for C difficile. White count is 21.9, hemoglobin is 10.2, platelet count 199. Potassium is 4.6, sodium 139, BUN is 99, creatinine 2.96. Sugars 190s. Positive for C difficile colitis. Chest x-ray is normal. CT of the abdomen is diffuse colitis throughout the colon. REVIEW OF SYSTEMS: 14-point review of system positive for hypotension, weakness, fatigue, and chronic diarrhea, otherwise negative. MEDICAL HISTORY: History of diabetes mellitus, COPD, hypertension, dyslipidemia, longstanding nicotine history, hernia repair, C difficile, MRSA. FAMILY HISTORY: Mother, diabetes. Father, cancer. HOME MEDICATIONS: 1. [place] 7.5 q.6. 2. Zocor 20 daily. 3. Januvia 100 daily. 4. Famotidine 20 daily. 5. Renvela 800 with supper daily. 6. Vitamin D 50,000 weekly. 7. Lasix 40 mg daily. 8. Lyrica 200 t.i.d. 9. Metoprolol 25 b.i.d. 10.Actos 30 daily. 11.Flomax 0.4 mg daily. 12.Iron 325 daily. 13.Xanax 0.25 q.6 p.r.n. 14.Insulin 15 units with his meals. 15.Levemir 30 units daily. 16.DuoNeb q.i.d. 17.Protonix 40 b.i.d. 18.Psyllium. 19.Sodium bicarbonate. 20.Flagyl. ALLERGIES: Negative. PHYSICAL EXAMINATION: VITAL SIGNS: Pulse is low 100s to high 90s, respiratory rate is 16-18, blood pressure is 80s to 110s over 40s to 60s, O2 of 97% to 98%. CARDIOVASCULAR: S1, S2. LUNGS: Scattered wheezes x4. ABDOMEN: Soft, nontender. EXTREMITIES: No cyanosis, clubbing, or edema. SKIN: No rash, excoriation, or bruising. NEUROLOGIC: Cranial nerves are intact. PSYCH: Fair mood and affect. GENERAL: Currently on nasal O2 at 2 L. He is alert and oriented x3. LABORATORY DATA: White count is 21.9, hemoglobin is 10.2. BUN is 99, creatinine was 2.96. ASSESSMENT: Hypertension secondary to dehydration and C difficile colitis, severe diarrhea, sepsis, acute mental status changes for septic encephalopathy, anion gap metabolic acidosis, acute tubular necrosis, acute kidney injury, dehydration, recent left BKA, diabetes, chronic obstructive pulmonary disease, history of methicillin-resistant Staphylococcus aureus, vancomycin-resistant Enterococci, is on IV Flagyl, oral vancomycin and some sinus medications. Fluid rehydration. Prognosis guarded. Please see further orders. Current blood pressure still remains low at 80s to 90s over 40s to 50s. MMODL / IJN: [id number] /
[2023-10-06 05:06] LABS: Basophils % (A) 0 %; Eosinophils % (A) 0 %; HCT 30.1 % (39.0-53.0); HGB 9.9 gm/dL (13.0-17.5); Hypochromasia Slight; Lymphocytes # (A) 0.7 k/uL (1.0-4.8); Lymphocytes % (A) 3 %; MCH 31.3 pg (25.0-35.0); MCV 94.9 fL (80.0-100.0); Mean Platelet Volume 9.2; Monocytes # (A) 0.9 k/uL (0-1.0); Monocytes % (A) 4 %; Neutrophils # (A) 22.2 k/uL (1.3-7.7); Neutrophils % (A) 92 %; Platelet Count 198 k/uL (150-450); RBC 3.17 m/uL (4.30-5.90); RDW 15.8 % (11.5-15.5); WBC 24.1 k/uL (3.8-10.6)
[2023-10-06] MEDS: ONDANSETRON 4 MG/2 ML VIAL IVP PRN (05:40)
[2023-10-06 05:47] LABS: Glucose,Whole Blood 306 mg/dL (70-110)
[2023-10-06] MEDS: CALCIUM CARBONATE 500 MG CHEWABLE PO PRN (08:36)
[2023-10-06] MEDS: SUCRALFATE 1 GM TAB PO SCH (08:36)
[2023-10-06] MEDS: PANTOPRAZOLE 40 MG/10 ML VIAL IVP SCH (08:36)
[2023-10-06] MEDS ORDERED: PANTOPRAZOLE 40 MG/10 ML VIAL IV SCH (09:00)
[2023-10-06] MEDS: FERROUS SULFATE 325 MG TAB PO SCH (10:57)
[2023-10-06] MEDS: SODIUM BICARBONATE TAB 650 MG TAB PO SCH (10:57)
[2023-10-06] MEDS: PIOGLITAZONE 30 MG TAB PO SCH (10:58)
[2023-10-06] MEDS: TAMSULOSIN 0.4 MG CAP.ER.24H PO SCH (10:58)
[2023-10-06] MEDS: MULTIVITAMINS, THERA 1 EACH TAB PO SCH (10:58)
[2023-10-06] MEDS: SODIUM CHLORIDE 0.9% 1,000 ML IV SCH (11:04)
--- NOTE | 2023-10-06 11:29 | P.GSCN ---
History of Present Illness Consult date: 10/06/23 History of present illness: CHIEF COMPLAINT: Fever, weakness, hypotension HISTORY OF PRESENT ILLNESS: This is a 52-year-old male who presents the hospital with complaints of fever, weakness and hypotension. He had recently started treatment for C. difficile colitis. Patient is currently in the ICU. Surgical service consulted in regards to coffee-ground emesis. Patient vomited yesterday and today black material. He complains of heartburn. Denies any prior EGD or peptic ulcer disease history. CT scan abdomen pelvis reports superficial thickening of the colon throughout its entirety most compatible with colitis. Patient denies being on any blood thinners. Surgical service consulted for coffee-ground emesis. PAST MEDICAL HISTORY: Diabetes Mellitus, Hyperlipidemia, Hypertension, CHF PAST SURGICAL HISTORY: Hernia repair MEDICATIONS: See below ALLERGIES: See below SOCIAL HISTORY: No illicit drug use. REVIEW OF SYSTEMS: CONSTITUTIONAL: Denies fever or chills. HEENT: Denies blurred vision, vision changes, or eye pain. Denies hemoptysis CARDIOVASCULAR: Denies chest pain or pressure. RESPIRATORY: No shortness of breath. GASTROINTESTINAL: See HPI for pertinent findings HEMATOLOGIC: Denies bleeding disorders. GENITOURINARY: Denies any blood in urine or increased urinary frequency. SKIN: Denies pruitis. Denies rash. PHYSICAL EXAM: VITAL SIGNS: Reviewed GENERAL: Well-developed in no acute distress. ABDOMEN: Soft. Nondistended. Ventral hernia that is reducible. Mild epigastric discomfort NEUROLOGIC: Alert and oriented. Cranial nerves II through XII grossly intact. LABORATORY DATA: WBC 24.1 Hgb 9.9 platelets 198 Sodium 140 potassium 3.8 creatinine 1.91 Gastric occult blood positive C. difficile positive IMAGING: CT scan abdomen pelvis there is circumferential thickening of the colon throughout its entirety most compatible with colitis. Correlate for Pseudomonas colitis. No organizing fluid collection or free air. ASSESSMENT: 1. Acute GI bleed with coffee-ground emesis 2. Acute blood loss anemia 3. C. difficile positive PLAN: -Patient scheduled for EGD today with Dr. Coy -Continue IV Protonix twice a day -Continue Carafate and Tums -Continue to monitor hemoglobin -Continue to monitor for any signs or symptoms of bleeding Physician Small Business Consultant note has been reviewed by physician. Signing provider agrees with the documented findings, assessment, and plan of care. Past Medical History Past Medical History: Diabetes Mellitus, Hyperlipidemia, Hypertension Additional Past Medical History / Comment(s): STATES SORE ON THE BOTTOM OF LEFT FOOT. 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 Past Psychological History: Anxiety Smoking Status: Former smoker Past Alcohol Use History: Occasional Past Drug Use History: None Reported - Past Family History Mother Family Medical History: Diabetes Mellitus Father Family Medical History: Cancer Medications and Allergies Home Medications Medication Instructions Recorded Confirmed Type HYDROcodone/APAP 7.5-325MG [[place] 1 tab PO Q4H PRN 11/09/21 10/04/23 History 7.5-325] Simvastatin [Zocor] 20 mg PO HS 11/09/21 10/04/23 History sitaGLIPtin [Januvia] 100 mg PO DAILY 11/09/21 10/04/23 History Famotidine 20 mg PO HS 07/01/22 10/04/23 History Sevelamer [Renvela] 800 mg PO W/SUPPER 07/01/22 10/04/23 History Ergocalciferol [Vitamin D2 (1250 1,250 mcg PO TU 10/01/22 10/04/23 History Mcg = 99627 Iu)] Furosemide [Lasix] 40 mg PO DAILY 05/14/23 10/04/23 History Multivitamins, Thera [Multivitamin 1 tab PO DAILY 05/14/23 10/04/23 History (formulary)] Pregabalin [Lyrica] 200 mg PO TID 05/14/23 10/04/23 History ALPRAZolam [Xanax] 0.25 mg PO Q6HR PRN tab 09/05/23 10/04/23 Rx Metoprolol Tartrate [Lopressor] 25 mg PO BID tab 09/05/23 10/04/23 Rx Pioglitazone [Actos] 30 mg PO DAILY tab 09/05/23 10/04/23 Rx Tamsulosin [Flomax] 0.4 mg PO DAILY cap 09/05/23 10/04/23 Rx Cholestyramine (with Sugar) 4 gm PO HS 10/04/23 10/04/23 History [Questran] Ferrous Sulfate [Feosol] 325 mg PO DAILY@0800 10/04/23 10/04/23 History HYDROcodone/APAP 10-325MG [[place] 1 tab PO Q6HR PRN 10/04/23 10/04/23 History 10-325] INSULIN ASPART (NovoLOG) [[place]ovo[place] 15 unit SQ AC-TID 10/04/23 10/04/23 History (formulary)] Insulin Detemir [Levemir Flexpen] 10 unit SQ DAILY 10/04/23 10/04/23 History Insulin Detemir [Levemir Flexpen] 30 units SQ HS 10/04/23 10/04/23 History Ipratropium-Albuterol Nebulize 3 ml INHALATION RT-Q6H PRN 10/04/23 10/04/23 History [Duoneb 0.5 mg-3 mg/3 ml Soln] L.acidoph,Paracasei, B.lactis 1 cap PO BID 10/04/23 10/04/23 History [Probiotic] Loperamide HCl [Imodium A-D] 2 - 4 mg PO QID PRN 10/04/23 10/04/23 History Naloxone HCl [Narcan] 4 mg NASAL DIRECTED PRN 10/04/23 10/04/23 History Ondansetron [Zofran] 4 mg PO Q8H PRN 10/04/23 10/04/23 History Psyllium Husk (with Sugar) 1 tbsp PO HS 10/04/23 10/04/23 History [Metamucil Powder] Sodium Bicarbonate Tab 650 mg PO BID@0800,1600 10/04/23 10/04/23 History metroNIDAZOLE [Flagyl] 500 mg PO TID@0800,1200,1800 10/04/23 10/04/23 History Allergies Allergy/AdvReac Type Severity Reaction Status Date / Time No Known Allergies Allergy Verified 10/04/23 15:00 Surgical - Exam Vital Signs Temp Pulse Resp BP Pulse Ox 99.3 F 100 18 89/46 94 L 10/04/23 14:13 10/04/23 14:13 10/04/23 14:13 10/04/23 14:13 10/04/23 14:13 Results - Labs 10/06/23 04:31 10/06/23 02:44 Abnormal Lab Results - Last 24 Hours (Table) 10/05/23 10/05/23 10/05/23 Range/Units 12:15 14:00 16:36 WBC (3.8-10.6) k/uL RBC (4.30-5.90) m/uL Hgb (13.0-17.5) gm/dL Hct (39.0-53.0) % RDW (11.5-15.5) % Neutrophils # (1.3-7.7) k/uL Lymphocytes # (1.0-4.8) k/uL Chloride (98-107) mmol/L Carbon Dioxide (22-30) mmol/L BUN (9-20) mg/dL Creatinine (0.66-1.25) mg/dL Glucose (74-99) mg/dL POC Glucose (mg/dL) 341 H 347 H (70-110) mg/dL Hemoglobin A1c (<=6.0) % Calcium (8.4-10.2) mg/dL AST (17-59) U/L Total Protein (6.3-8.2) g/dL Albumin (3.5-5.0) g/dL Urine Protein Trace H (Negative) Urine Glucose (UA) 4+ H (Negative) 10/05/23 10/06/23 10/06/23 Range/Units 20:19 02:44 02:44 WBC (3.8-10.6) k/uL RBC (4.30-5.90) m/uL Hgb (13.0-17.5) gm/dL Hct (39.0-53.0) % RDW (11.5-15.5) % Neutrophils # (1.3-7.7) k/uL Lymphocytes # (1.0-4.8) k/uL Chloride 114 H (98-107) mmol/L Carbon Dioxide 21 L (22-30) mmol/L BUN 80 H (9-20) mg/dL Creatinine 1.91 H (0.66-1.25) mg/dL Glucose 309 H (74-99) mg/dL POC Glucose (mg/dL) 383 H (70-110) mg/dL Hemoglobin A1c 7.8 H (<=6.0) % Calcium 8.0 L (8.4-10.2) mg/dL AST 12 L (17-59) U/L Total Protein 4.7 L (6.3-8.2) g/dL Albumin 2.3 L (3.5-5.0) g/dL Urine Protein (Negative) Urine Glucose (UA) (Negative) 10/06/23 10/06/23 10/06/23 Range/Units 02:44 04:31 05:45 WBC 23.4 H 24.1 H (3.8-10.6) k/uL RBC 3.42 L 3.17 L (4.30-5.90) m/uL Hgb 10.3 L 9.9 L (13.0-17.5) gm/dL Hct 32.4 L 30.1 L (39.0-53.0) % RDW 15.8 H (11.5-15.5) % Neutrophils # 22.2 H (1.3-7.7) k/uL Lymphocytes # 0.7 L (1.0-4.8) k/uL Chloride (98-107) mmol/L Carbon Dioxide (22-30) mmol/L BUN (9-20) mg/dL Creatinine (0.66-1.25) mg/dL Glucose (74-99) mg/dL POC Glucose (mg/dL) 306 H (70-110) mg/dL Hemoglobin A1c (<=6.0) % Calcium (8.4-10.2) mg/dL AST (17-59) U/L Total Protein (6.3-8.2) g/dL Albumin (3.5-5.0) g/dL Urine Protein (Negative) Urine Glucose (UA) (Negative) Microbiology - Last 24 Hours (Table) 10/04/23 14:45 Blood Culture - Preliminary Blood Diabetes panel 10/06/23 10/06/23 Range/Units 02:44 02:44 Sodium 140 (137-145) mmol/L Potassium 3.8 (3.5-5.1) mmol/L Chloride 114 H (98-107) mmol/L Carbon Dioxide 21 L (22-30) mmol/L BUN 80 H (9-20) mg/dL Creatinine 1.91 H (0.66-1.25) mg/dL Glucose 309 H (74-99) mg/dL Hemoglobin A1c 7.8 H (<=6.0) % Calcium 8.0 L (8.4-10.2) mg/dL AST 12 L (17-59) U/L ALT 9 (4-49) U/L Alkaline Phosphatase 66 (38-126) U/L Total Protein 4.7 L (6.3-8.2) g/dL Albumin 2.3 L (3.5-5.0) g/dL Calcium panel 10/06/23 Range/Units 02:44 Calcium 8.0 L (8.4-10.2) mg/dL Albumin 2.3 L (3.5-5.0) g/dL Pituitary panel 10/06/23 Range/Units 02:44 Sodium 140 (137-145) mmol/L Potassium 3.8 (3.5-5.1) mmol/L Chloride 114 H (98-107) mmol/L Carbon Dioxide 21 L (22-30) mmol/L BUN 80 H (9-20) mg/dL Creatinine 1.91 H (0.66-1.25) mg/dL Glucose 309 H (74-99) mg/dL Calcium 8.0 L (8.4-10.2) mg/dL Adrenal panel 10/06/23 Range/Units 02:44 Sodium 140 (137-145) mmol/L Potassium 3.8 (3.5-5.1) mmol/L Chloride 114 H (98-107) mmol/L Carbon Dioxide 21 L (22-30) mmol/L BUN 80 H (9-20) mg/dL Creatinine 1.91 H (0.66-1.25) mg/dL Glucose 309 H (74-99) mg/dL Calcium 8.0 L (8.4-10.2) mg/dL Total Bilirubin 0.4 (0.2-1.3) mg/dL AST 12 L (17-59) U/L ALT 9 (4-49) U/L Alkaline Phosphatase 66 (38-126) U/L Total Protein 4.7 L (6.3-8.2) g/dL Albumin 2.3 L (3.5-5.0) g/dL
[2023-10-06 12:01] LABS: Glucose,Whole Blood 259 mg/dL (70-110)
--- NOTE | 2023-10-06 13:36 | P.PN ---
Subjective patient is seen for follow-up for acute kidney injury. Currently maintained on IV fluids and being treated for C. diff colitis. Diarrhea is slightly better. Serum creatinine has decreased to 1.9 from 3.5 on initial admission. Maintained on saline at 100 mL an hour. scheduled for EGD today. Objective - Vital Signs Vital signs: Vital Signs Temp 98.3 F 10/06/23 12:00 Pulse 87 10/06/23 13:00 Resp 13 10/06/23 13:00 BP 95/53 10/06/23 13:00 Pulse Ox 99 10/06/23 13:00 FiO2 Intake & Output 10/05/23 10/06/23 10/06/23 18:59 06:59 18:59 Intake Total 4154.586 2050 975 Output Total 2060 1500 550 Balance 2094.586 550 425 Weight 98.8 kg Intake: IV 0 1600 975 Dextrose 5% in Water 1, 1250 1500 375 000 ml @ 125 mls/hr IV . Q9H12M CARL with Sodium Bicarb (1 Meq/ml) 150 ml Rx#:[id number] Sodium Chloride 0.9% 1, 400 000 ml @ 100 mls/hr IV . Q10H CARL Rx#:[id number] Sodium Chloride 0.9% 500 500 ml 500 ml @ 999 mls/hr IV .Q31M ONE Rx#:[id number] metroNIDAZOLE-NS PMX 500 300 100 200 mg In Saline 1 100ml.bag @ 100 mls/hr IVPB QID CARL Rx#:[id number] Intake, IV Titration 104.586 Amount Norepinephrine 4 mg In 104.586 Sodium Chloride 0.9% 250 ml @ 0.03 MCG/KG/MIN 11. 199 mls/hr IV .[id number] ONE Rx#:[id number] Oral 2000 450 Output: Urine 0 1500 550 Other: Voiding Method Indwelling Catheter Indwelling Catheter Indwelling Catheter # Bowel Movements 1 1 - Exam patient is sleeping but arousable. Examination of the heart S1 and S2 Examination the lungs bilateral breath sounds are heard Abdomen is soft nontender Examination lower extremities shows no significant edema - Labs CBC & Chem 7: 10/06/23 04:31 10/06/23 02:44 Labs: Abnormal Lab Results - Last 24 Hours (Table) 10/05/23 10/05/23 10/05/23 Range/Units 14:00 16:36 20:19 WBC (3.8-10.6) k/uL RBC (4.30-5.90) m/uL Hgb (13.0-17.5) gm/dL Hct (39.0-53.0) % RDW (11.5-15.5) % Neutrophils # (1.3-7.7) k/uL Lymphocytes # (1.0-4.8) k/uL Chloride (98-107) mmol/L Carbon Dioxide (22-30) mmol/L BUN (9-20) mg/dL Creatinine (0.66-1.25) mg/dL Glucose (74-99) mg/dL POC Glucose (mg/dL) 347 H 383 H (70-110) mg/dL Hemoglobin A1c (<=6.0) % Calcium (8.4-10.2) mg/dL AST (17-59) U/L Total Protein (6.3-8.2) g/dL Albumin (3.5-5.0) g/dL Urine Protein Trace H (Negative) Urine Glucose (UA) 4+ H (Negative) 10/06/23 10/06/23 10/06/23 Range/Units 02:44 02:44 02:44 WBC 23.4 H (3.8-10.6) k/uL RBC 3.42 L (4.30-5.90) m/uL Hgb 10.3 L (13.0-17.5) gm/dL Hct 32.4 L (39.0-53.0) % RDW (11.5-15.5) % Neutrophils # (1.3-7.7) k/uL Lymphocytes # (1.0-4.8) k/uL Chloride 114 H (98-107) mmol/L Carbon Dioxide 21 L (22-30) mmol/L BUN 80 H (9-20) mg/dL Creatinine 1.91 H (0.66-1.25) mg/dL Glucose 309 H (74-99) mg/dL POC Glucose (mg/dL) (70-110) mg/dL Hemoglobin A1c 7.8 H (<=6.0) % Calcium 8.0 L (8.4-10.2) mg/dL AST 12 L (17-59) U/L Total Protein 4.7 L (6.3-8.2) g/dL Albumin 2.3 L (3.5-5.0) g/dL Urine Protein (Negative) Urine Glucose (UA) (Negative) 10/06/23 10/06/23 10/06/23 Range/Units 04:31 05:45 11:59 WBC 24.1 H (3.8-10.6) k/uL RBC 3.17 L (4.30-5.90) m/uL Hgb 9.9 L (13.0-17.5) gm/dL Hct 30.1 L (39.0-53.0) % RDW 15.8 H (11.5-15.5) % Neutrophils # 22.2 H (1.3-7.7) k/uL Lymphocytes # 0.7 L (1.0-4.8) k/uL Chloride (98-107) mmol/L Carbon Dioxide (22-30) mmol/L BUN (9-20) mg/dL Creatinine (0.66-1.25) mg/dL Glucose (74-99) mg/dL POC Glucose (mg/dL) 306 H 259 H (70-110) mg/dL Hemoglobin A1c (<=6.0) % Calcium (8.4-10.2) mg/dL AST (17-59) U/L Total Protein (6.3-8.2) g/dL Albumin (3.5-5.0) g/dL Urine Protein (Negative) Urine Glucose (UA) (Negative) Microbiology - Last 24 Hours (Table) 10/04/23 14:45 Blood Culture - Preliminary Blood Assessment and Plan Assessment: 1. Acute kidney injury secondary to ATN secondary to hypotension and hypovolemia. Creatinine 4.38 dated October 01, 2023 and was 3.52 yesterday. It is 2.96 today. Baseline creatinine near 1. No hydronephrosis noted on CT. 2. C. difficile colitis maintained on oral vancomycin. 3. Metabolic acidosis secondary to acute kidney injury and GI losses. 4. Septic shock, s/p Levophed. Plan: continue with IV fluids. Continue with oral sodium bicarb Repeat labs in a.m.
[2023-10-06] MEDS ORDERED: LIDOCAINE 1% INJ 10MG/ML (20 ML MDV) ONE (14:31)
[2023-10-06] MEDS ORDERED: PROPOFOL 10 MG/ML 20 ML VIAL IV ONE (14:31)
[2023-10-06] MEDS: IV FLUID CONTINUATION 1,000 ML IV ONE ×2 (14:33→14:40)
--- NOTE | 2023-10-06 14:46 | P.OP ---
Date of Procedure: 10/06/23 Preoperative Diagnosis: upper GI bleed Postoperative Diagnosis: gastritis Procedure(s) Performed: EGD Anesthesia: MAC Surgeon: Juan M Coy Pathology: other (antrum) Condition: stable Disposition: PACU Description of Procedure: the patient's placed on the endoscopy table in the lateral position. He re ceived IV sedation. The gastroscope placed oropharynx passed in the esophagus and stomach. The stomach was filled with melanotic fluid. This was aspirated. Scope was then placed through the pylorus into the first second portion duodenum. No obvious source of bleeding could be seen. Scope back into the antrum this was minimal inflamed. A biopsies performed. Scope was retroflexed meters some appeared normal. There is no obvious source of bleeding. The GE junction was at 40 cm.. The distal esophagus appeared normal. The proximal esophagus appeared normal. Scope withdrawn for patient.
--- NOTE | 2023-10-06 14:55 | P.PN ---
Subjective Progress Note Date: 10/06/23 Principal diagnosis: Reason for follow-up is C. 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 difficile colitis. On today's evaluation that is 10/06/2023,the patient remains to be afebrile, patient is on 2 L nasal cannula supplemental oxygen and denies any shortness of breath no chest pain or cough.Patient denies having any nausea or vomiting, no abdominal pain and diarrhea has slowed down per patient. Patient white count is slightly up to 24.1 creatinine is 1.91 blood cultures pending Objective - Vital Signs Vital signs: Vital Signs Temp 98.8 F 10/06/23 04:00 Pulse 95 10/06/23 07:00 Resp 19 10/06/23 07:00 BP 97/61 10/06/23 07:00 Pulse Ox 96 10/06/23 08:18 FiO2 Intake & Output 10/05/23 10/06/23 10/06/23 18:59 06:59 18:59 Intake Total 4154.586 0 125 Output Total 2059 1500 100 Balance 2094.586 550 25 Weight 98.8 kg Intake: IV 2049 1600 125 Dextrose 5% in Water 1, 1250 1500 125 000 ml @ 125 mls/hr IV . Q9H12M CARL with Sodium Bicarb (1 Meq/ml) 150 ml Rx#:[id number] Sodium Chloride 0.9% 500 500 ml 500 ml @ 999 mls/hr IV .Q31M ONE Rx#:[id number] metroNIDAZOLE-NS PMX 500 300 100 mg In Saline 1 100ml.bag @ 100 mls/hr IVPB QID CARL Rx#:[id number] Intake, IV Titration 104.586 Amount Norepinephrine 4 mg In 104.586 Sodium Chloride 0.9% 250 ml @ 0.03 MCG/KG/MIN 11. 199 mls/hr IV .[id number] ONE Rx#:[id number] Oral 2000 450 Output: Urine 0 1500 100 Other: Voiding Method Indwelling Catheter Indwelling Catheter # Bowel Movements 1 1 - Exam Middle-age male lying in bed in no distress Respiratory system unlabored breathing decreased breath sound the base Heart S1-S2 regular Abdominal soft no tenderness Extremities no edema feet Skin no rashes, no masses palpable Patient is awake alert oriented x 3 mood and affect is normal Exam compleetd with help of FILLER FEEDER - Labs CBC & Chem 7: 10/06/23 04:31 10/06/23 02:44 Labs: Abnormal Lab Results - Last 24 Hours (Table) 10/05/23 10/05/23 10/05/23 Range/Units 12:15 14:00 16:36 WBC (3.8-10.6) k/uL RBC (4.30-5.90) m/uL Hgb (13.0-17.5) gm/dL Hct (39.0-53.0) % RDW (11.5-15.5) % Neutrophils # (1.3-7.7) k/uL Lymphocytes # (1.0-4.8) k/uL Chloride (98-107) mmol/L Carbon Dioxide (22-30) mmol/L BUN (9-20) mg/dL Creatinine (0.66-1.25) mg/dL Glucose (74-99) mg/dL POC Glucose (mg/dL) 341 H 347 H (70-110) mg/dL Hemoglobin A1c (<=6.0) % Calcium (8.4-10.2) mg/dL AST (17-59) U/L Total Protein (6.3-8.2) g/dL Albumin (3.5-5.0) g/dL Urine Protein Trace H (Negative) Urine Glucose (UA) 4+ H (Negative) 10/05/23 10/06/23 10/06/23 Range/Units 20:19 02:44 02:44 WBC (3.8-10.6) k/uL RBC (4.30-5.90) m/uL Hgb (13.0-17.5) gm/dL Hct (39.0-53.0) % RDW (11.5-15.5) % Neutrophils # (1.3-7.7) k/uL Lymphocytes # (1.0-4.8) k/uL Chloride 114 H (98-107) mmol/L Carbon Dioxide 21 L (22-30) mmol/L BUN 80 H (9-20) mg/dL Creatinine 1.91 H (0.66-1.25) mg/dL Glucose 309 H (74-99) mg/dL POC Glucose (mg/dL) 383 H (70-110) mg/dL Hemoglobin A1c 7.8 H (<=6.0) % Calcium 8.0 L (8.4-10.2) mg/dL AST 12 L (17-59) U/L Total Protein 4.7 L (6.3-8.2) g/dL Albumin 2.3 L (3.5-5.0) g/dL Urine Protein (Negative) Urine Glucose (UA) (Negative) 10/06/23 10/06/23 10/06/23 Range/Units 02:44 04:31 05:45 WBC 23.4 H 24.1 H (3.8-10.6) k/uL RBC 3.42 L 3.17 L (4.30-5.90) m/uL Hgb 10.3 L 9.9 L (13.0-17.5) gm/dL Hct 32.4 L 30.1 L (39.0-53.0) % RDW 15.8 H (11.5-15.5) % Neutrophils # 22.2 H (1.3-7.7) k/uL Lymphocytes # 0.7 L (1.0-4.8) k/uL Chloride (98-107) mmol/L Carbon Dioxide (22-30) mmol/L BUN (9-20) mg/dL Creatinine (0.66-1.25) mg/dL Glucose (74-99) mg/dL POC Glucose (mg/dL) 306 H (70-110) mg/dL Hemoglobin A1c (<=6.0) % Calcium (8.4-10.2) mg/dL AST (17-59) U/L Total Protein (6.3-8.2) g/dL Albumin (3.5-5.0) g/dL Urine Protein (Negative) Urine Glucose (UA) (Negative) Microbiology - Last 24 Hours (Table) 10/04/23 14:45 Blood Culture - Preliminary Blood Assessment and Plan (1) Leukocytosis Current Visit: Yes Status: Acute Code(s): D72.829 - ELEVATED WHITE BLOOD CELL COUNT, UNSPECIFIED SNOMED Code(s): 220661461 (2) C. difficile colitis Current Visit: Yes Status: Acute Code(s): A04.72 - ENTEROCOLITIS D/T CLOSTRIDIUM DIFFICILE, NOT SPCF RECUR SNOMED Code(s): 174841610 Plan: This is a telehealth visit 1patient presented to the hospital with sepsis in this patient who did have hypotension tachycardia low-grade fever and elevated white count medically clear for SIRS/sepsis source is severe C. difficile colitis failing outpatient treatment 2-patient to continue with the IV Flagyl along with vancomycin 500 mg every 6 hours mentioned that he has standing for white count slightly up we will monitor closely and continue supportive care Dictation was produced using [employer] dictation software. please excuse any grammatical, word or spelling errors. Time with Patient: Less than 30
--- NOTE | 2023-10-06 14:56 | P.PN ---
Subjective Progress Note Date: 10/06/23 52-year-old male who is seen in the emergency department, October 04, 2023. The patient came in with weakness, mental status changes, and suspected sepsis. The patient recently had a left below the knee amputation, done by Dr. Domínguez, on September 02. 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 The patient was discharged after number days to a local half-way. He came back into the emergency department as mentioned on October 03. He was being treated for a C. difficile infection. He apparently was noted to be febrile, lethargic, and weak, with a low blood pressure. For that reason, he was sent in to the emergency department, and brought in by EMS. I was called by the emergency room physician, who did fluid resuscitation initially, but then started him on some norepinephrine. For that reason, the patient necessitated an admission to the intensive care unit. Currently he is on 2 L of oxygen. He is given D5W with 3 ampoules of sodium bicarb and at 125 cc an hour. His norepinephrine dose is 4 mcg/min. He is currently on IV Flagyl, and oral vancomycin for his C. difficile infection. White count is 21.9, hemoglobin 10.2, hematocrit 32.9, platelet count 199,000. Sodium 139, potassium 4.6, chlorides 119, CO2 9, BUN 99, creatinine 2.96. Glucose is 192. Calcium 8.8, magnesium 2.3. He did test positive here for C. difficile. Chest x-ray is read as normal here. CT of the abdomen and pelvis shows circumferential thickening of the colon throughout its entire length, most compatible with colitis. On today's evaluation of 10/06/2023, the patient is being seen for a follow-up. The patient was moved to the intensive care unit because of ongoing diarrhea and the patient also developed 2 episodes of coffee-ground emesis overnight and the patient is going to undergo an EGD today. The patient is currently on IV Protonix. The patient is NPO. The patient is eating combination IV Flagyl and oral vancomycin regarding acute C. difficile colitis. The patient is currently off pressors. White cell count remains elevated. Remains somewhat encephalopathic although there is improvement in his mentation over the past 12 hours. The white cell count is at 24 with a hemoglobin 9.9 and a platelet count of 198. Sodium is at 140, potassium is 3.8, serum bicarb is improved and is currently up to 21 with a BUN of 80 and a creatinine of 1.9 and the patient is improving in terms of his renal function. The HbA1c is at 7.8. LFTs are normal. Troponins are negative. Most recent blood sugar is 306. The patient is on bicarb infusion which is running at a rate of 125 cc an hour. Serum bicarb is improved. The patient is on Levemir insulin 30 units in the evening and 10 units in the morning along with a NovoLog sliding scale coverage. The patient is currently on oral bicarb supplements. No significant abdominal pain. He does have a large anterior abdominal wall ventral hernia. Objective - Vital Signs Vital signs: Vital Signs Temp 98.8 F 10/06/23 04:00 Pulse 95 10/06/23 07:00 Resp 19 10/06/23 07:00 BP 97/61 10/06/23 07:00 Pulse Ox 96 10/06/23 08:18 FiO2 Intake & Output 10/05/23 10/06/23 10/06/23 18:59 06:59 18:59 Intake Total 4154.586 2050 125 Output Total 2059 1500 100 Balance 2094.586 550 25 Weight 98.8 kg Intake: IV 0 1600 125 Dextrose 5% in Water 1, 1250 1500 125 000 ml @ 125 mls/hr IV . Q9H12M CARL with Sodium Bicarb (1 Meq/ml) 150 ml Rx#:[id number] Sodium Chloride 0.9% 500 500 ml 500 ml @ 999 mls/hr IV .Q31M ONE Rx#:[id number] metroNIDAZOLE-NS PMX 500 300 100 mg In Saline 1 100ml.bag @ 100 mls/hr IVPB QID CARL Rx#:[id number] Intake, IV Titration 104.586 Amount Norepinephrine 4 mg In 104.586 Sodium Chloride 0.9% 250 ml @ 0.03 MCG/KG/MIN 11. 199 mls/hr IV .[id number] ONE Rx#:[id number] Oral 2000 450 Output: Urine 0 1500 100 Other: Voiding Method Indwelling Catheter Indwelling Catheter # Bowel Movements 1 1 - Exam No acute distress, oriented 3. Currently on nasal O2 at 2 L. No respiratory distress. HEENT examination is grossly unremarkable. Neck supple. Full range of motion. No adenopathy thyromegaly or neck vein distention. Cardiovascular examination reveals regular rhythm rate. S1-S2 normal. No S3 or S4. No discernible murmur noted. Heart rate is 100 bpm. Lungs reveal clear breath sounds. Breath sounds are equal bilaterally. No adventitious lung sounds including wheezes rhonchi or crackles. Saturations are 98%. Abdomen soft with bowel sounds. No masses or tenderness. The patient has large anterior abdominal wall hernias and scars of previous surgeries. The hernia is reducible. No direct tenderness. No rebound tenderness. No guarding. Extremities are intact. No cyanosis clubbing or edema. The patient has a below-knee amputation of the left lower extremity. The surgical stump is healing nicely. There is no active drainage. No erythema. No abscess formatio n. Skin is without rash or lesion. Neurologic examination is brief but nonfocal. - Labs CBC & Chem 7: 10/06/23 04:31 10/06/23 02:44 Labs: Abnormal Lab Results - Last 24 Hours (Table) 10/05/23 10/05/23 10/05/23 Range/Units 12:15 14:00 16:36 WBC (3.8-10.6) k/uL RBC (4.30-5.90) m/uL Hgb (13.0-17.5) gm/dL Hct (39.0-53.0) % RDW (11.5-15.5) % Neutrophils # (1.3-7.7) k/uL Lymphocytes # (1.0-4.8) k/uL Chloride (98-107) mmol/L Carbon Dioxide (22-30) mmol/L BUN (9-20) mg/dL Creatinine (0.66-1.25) mg/dL Glucose (74-99) mg/dL POC Glucose (mg/dL) 341 H 347 H (70-110) mg/dL Hemoglobin A1c (<=6.0) % Calcium (8.4-10.2) mg/dL AST (17-59) U/L Total Protein (6.3-8.2) g/dL Albumin (3.5-5.0) g/dL Urine Protein Trace H (Negative) Urine Glucose (UA) 4+ H (Negative) 10/05/23 10/06/2324 Range/Units 20:19 02:44 02:44 WBC (3.8-10.6) k/uL RBC (4.30-5.90) m/uL Hgb (13.0-17.5) gm/dL Hct (39.0-53.0) % RDW (11.5-15.5) % Neutrophils # (1.3-7.7) k/uL Lymphocytes # (1.0-4.8) k/uL Chloride 114 H (98-107) mmol/L Carbon Dioxide 21 L (22-30) mmol/L BUN 80 H (9-20) mg/dL Creatinine 1.91 H (0.66-1.25) mg/dL Glucose 309 H (74-99) mg/dL POC Glucose (mg/dL) 383 H (70-110) mg/dL Hemoglobin A1c 7.8 H (<=6.0) % Calcium 8.0 L (8.4-10.2) mg/dL AST 12 L (17-59) U/L Total Protein 4.7 L (6.3-8.2) g/dL Albumin 2.3 L (3.5-5.0) g/dL Urine Protein (Negative) Urine Glucose (UA) (Negative) 10/06/23 10/06/23 10/06/23 Range/Units 02:44 04:31 05:45 WBC 23.4 H 24.1 H (3.8-10.6) k/uL RBC 3.42 L 3.17 L (4.30-5.90) m/uL Hgb 10.3 L 9.9 L (13.0-17.5) gm/dL Hct 32.4 L 30.1 L (39.0-53.0) % RDW 15.8 H (11.5-15.5) % Neutrophils # 22.2 H (1.3-7.7) k/uL Lymphocytes # 0.7 L (1.0-4.8) k/uL Chloride (98-107) mmol/L Carbon Dioxide (22-30) mmol/L BUN (9-20) mg/dL Creatinine (0.66-1.25) mg/dL Glucose (74-99) mg/dL POC Glucose (mg/dL) 306 H (70-110) mg/dL Hemoglobin A1c (<=6.0) % Calcium (8.4-10.2) mg/dL AST (17-59) U/L Total Protein (6.3-8.2) g/dL Albumin (3.5-5.0) g/dL Urine Protein (Negative) Urine Glucose (UA) (Negative) Microbiology - Last 24 Hours (Table) 10/04/23 14:45 Blood Culture - Preliminary Blood Assessment and Plan Plan: Acute C. difficile colitis, currently on a combination of Flagyl and oral vancomycin, still having diarrhea and the patient has a fecal management system in place Hypotension, secondary to severe diarrhea, from C. difficile colitis, improved and he is off pressors Acute mental status changes, likely on the basis of septic encephalopathy, improved Anion gap metabolic acidosis, improved and the serum bicarb is currently at 21 Coffee-ground emesis x 2 and the patient is currently n.p.o. Acute leukocytosis, secondary to C. difficile colitis Acute kidney injury, Improving and the patient's creatinine is down to 1.91. IV fluids are in the form of D5W/bicarb infusion at a rate of 125 cc an hour Diabetes mellitus, currently on L Levemir insulin 30 units at bedtime and 10 units in the morning along with NovoLog 5 units with meals and sliding scale coverage. He is also on Actos 30 mg p.o. daily. Recent left BKA, September 03, 2023. History of hypertension. History of hyperlipidemia. Nonhealing ulcer, left lower extremity, with subsequent left BKA. Prior history of methicillin-resistant Staph aureus infection, and Proteus mirabilis bacteremia and the patient completed a course of Rocephin and vancomycin on outpatient basis at the [facility]. Large anterior abdominal wall hernia Plan: The patient will be kept on oral vancomycin and IV Flagyl. Monitor diarrhea and the patient has a fecal management system in place Keep the patient n.p.o. EGD today regarding upper GI bleeding/coffee-ground emesis Discontinue the bicarb infusion and switch this patient to lactated Ringer at rate of 100 cc an hour The patient is currently off pressors Continue oral bicarb supplements Limited use of other goal-directed antibiotic coverage as Surgical wound site over the left lower extremity BKA is dry clean and intact. Renal function is improving Monitor mental status Keep the patient in the intensive care unit and will continue to follow.
[2023-10-06 16:26] LABS: Glucose,Whole Blood 208 mg/dL (70-110)
[2023-10-06 20:03] LABS: Glucose,Whole Blood 237 mg/dL (70-110)
[2023-10-06] MEDS: FORMOTEROL FUMARATE 20 MCG/2 ML NEBU INHALATION SCH (20:25)
--- NOTE | 2023-10-06 20:28 | PN ---
PROGRESS NOTE A 52-year-old white male. He had an EGD done today. No source of bleeding was found. Biopsies were performed. Nothing serious was found on the EGD today. Dr. Alfonso saw the patient also for he remained on IV fluids. C diff colitis. Kidney injury decreased to 1.9 from 3.5. Remains on saline and he has greatly improved. He is more rehydrated at this time with increased creatinine, leukocytosis secondary to C diff colitis, acute kidney injury secondary to ATN, hypotension, hypovolemia, C diff colitis, metabolic acidosis, septic shock, status post Levophed. The patient is greatly improved, on oral bicarb, IV fluids. Recheck labs in the morning. Continue with C diff treatment. Please see further orders. He is greatly improved. MMODL / IJN: [id number] /
[2023-10-06] MEDS: FAMOTIDINE 20 MG TAB PO SCH (20:45)
[2023-10-07] MEDS: SODIUM CHLORIDE 0.9% 500 ML 500 ML IV ONE (01:30)
[2023-10-07] MEDS: NOREPINEPHRINE 4 MG in SODIUM CHLORIDE 0.9% 250 ML IV SCH (03:00)
[2023-10-07 06:11] LABS: Glucose,Whole Blood 91 mg/dL (70-110)
[2023-10-07 06:39] LABS: ALT 7 U/L (4-49); AST 13 U/L (17-59); African American GFR (CKD) 54 (>60 ml/min/1.73 sqM); Albumin 2.1 g/dL (3.5-5.0); Alkaline Phosphatase 62 U/L (38-126); Anion Gap 7 mmol/L; Blood Urea Nitrogen 78 mg/dL (9-20); Calcium 7.3 mg/dL (8.4-10.2); Carbon Dioxide 19 mmol/L (22-30); Chloride 113 mmol/L (98-107); Glucose 87 mg/dL (74-99); Non-African American GFR(CKD) 47 (>60 ml/min/1.73 sqM); Potassium 3.6 mmol/L (3.5-5.1); Sodium 139 mmol/L (137-145); Total Bilirubin 0.4 mg/dL (0.2-1.3); Total Protein 4.5 g/dL (6.3-8.2)
[2023-10-07 07:28] LABS: HCT 34.1 % (39.0-53.0); HGB 10.3 gm/dL (13.0-17.5); Hypochromasia Marked; MCH 29.9 pg (25.0-35.0); MCHC 30.3 g/dL (31.0-37.0); MCV 98.6 fL (80.0-100.0); Macrocytosis Slight; Mean Platelet Volume 9.6; Platelet Count 265 k/uL (150-450); RBC 3.45 m/uL (4.30-5.90); RDW 15.1 % (11.5-15.5); WBC 30.5 k/uL (3.8-10.6)
[2023-10-07 10:07] LABS: Band Neutrophils % 3 %; Lymphocytes # (M) 0.92 k/uL (1.0-4.8); Metamyelocytes # (M) 0.31 k/uL (0); Metamyelocytes % 1 %; Monocytes # (M) 1.53 k/uL (0-1.0); Myelocytes # (M) 0.31 k/uL (0); Myelocytes % 1 %; Neutrophils % (M) 88 %; Nucleated Red Blood Cells 0 /100 WBC (0-0); Total Cells Counted 200
[2023-10-07 10:08] LABS: Toxic Granulation Present
--- NOTE | 2023-10-07 11:44 | P.PN ---
Subjective Progress Note Date: 10/07/23 CHIEF COMPLAINT: C. difficile colitis HISTORY OF PRESENT ILLNESS: Patient presented with fever weakness and hypotension and is being treated for C. difficile colitis with sepsis. Patient remains in the ICU. He is requiring Levophed for blood pressure support. His white count has increased from 24.1-30.5 hemoglobin stable at 10.3 patient is status post EGD which had revealed gastritis. Patient continues to have diarrhea. Denies any nausea or vomiting. Currently denies any abdominal pain. Patient has had no further coffee-ground emesis. PHYSICAL EXAM: VITAL SIGNS: Reviewed. GENERAL: no acute distress. ABDOMEN: Soft. Nondistended. Nontender. Ventral hernia is reducible NEUROLOGIC: Alert and oriented. Cranial nerves II through XII grossly intact. ASSESSMENT: 1. C. difficile colitis with worsening leukocytosis 2. Coffee-ground emesis status post EGD revealing gastritis PLAN: -CT scan abdomen and pelvis ordered for further evaluation of worsening leukocytosis -Continue Protonix -Continue C. difficile treatment -Continue supportive care Physician [employer] note has been reviewed by physician. Signing provider agrees with the documented findings, assessment, and plan of care. Objective - Vital Signs Vital signs: Vital Signs Temp 98.2 F 10/07/23 04:00 Pulse 78 10/07/23 07:00 Resp 15 10/07/23 07:00 BP 90/37 10/07/23 07:00 Pulse Ox 93 L 10/07/23 08:59 FiO2 21 10/07/23 08:59 Intake & Output 10/06/23 10/07/23 10/07/23 18:59 06:59 18:59 Intake Total 1575 1859.852 100 Output Total 1065 560 40 Balance 510 1299.852 60 Intake: IV 1575 1200 100 Dextrose 5% in Water 1, 375 000 ml @ 125 mls/hr IV . Q9H12M CARL with Sodium Bicarb (1 Meq/ml) 150 ml Rx#:[id number] Sodium Chloride 0.9% 1, 900 1200 100 000 ml @ 100 mls/hr IV . Q10H CARL Rx#:[id number] metroNIDAZOLE-NS PMX 500 200 mg In Saline 1 100ml.bag @ 100 mls/hr IVPB QID CARL Rx#:[id number] Intake, IV Titration 59.852 Amount Norepinephrine 4 mg In 59.852 Sodium Chloride 0.9% 250 ml @ 0.03 MCG/KG/MIN 11. 293 mls/hr IV .[id number] [facility] Rx#:[id number] Oral 600 Output: Urine 1065 560 40 Other: Voiding Method Indwelling Catheter Indwelling Catheter # Bowel Movements 1 1 - Labs CBC & Chem 7: 10/07/23 05:37 10/07/23 05:37 Labs: Abnormal Lab Results - Last 24 Hours (Table) 10/06/23 10/06/23 10/06/23 Range/Units 11:59 16:24 20:01 WBC (3.8-10.6) k/uL RBC (4.30-5.90) m/uL Hgb (13.0-17.5) gm/dL Hct (39.0-53.0) % MCHC (31.0-37.0) g/dL Neutrophils # (Manual) (1.3-7.7) k/uL Lymphocytes # (Manual) (1.0-4.8) k/uL Monocytes # (Manual) (0-1.0) k/uL Metamyelocytes # (Man) (0) k/uL Myelocytes # (Manual) (0) k/uL Chloride (98-107) mmol/L Carbon Dioxide (22-30) mmol/L BUN (9-20) mg/dL Creatinine (0.66-1.25) mg/dL POC Glucose (mg/dL) 259 H 208 H 237 H (70-110) mg/dL Calcium (8.4-10.2) mg/dL AST (17-59) U/L Total Protein (6.3-8.2) g/dL Albumin (3.5-5.0) g/dL 10/07/23 10/07/23 Range/Units 05:37 05:37 WBC 30.5 H (3.8-10.6) k/uL RBC 3.45 L (4.30-5.90) m/uL Hgb 10.3 L (13.0-17.5) gm/dL Hct 34.1 L (39.0-53.0) % MCHC 30.3 L (31.0-37.0) g/dL Neutrophils # (Manual) 27.70 H (1.3-7.7) k/uL Lymphocytes # (Manual) 0.92 L (1.0-4.8) k/uL Monocytes # (Manual) 1.53 H (0-1.0) k/uL Metamyelocytes # (Man) 0.31 H (0) k/uL Myelocytes # (Manual) 0.31 H (0) k/uL Chloride 113 H (98-107) mmol/L Carbon Dioxide 19 L (22-30) mmol/L BUN 78 H (9-20) mg/dL Creatinine 1.64 H (0.66-1.25) mg/dL POC Glucose (mg/dL) (70-110) mg/dL Calcium 7.3 L (8.4-10.2) mg/dL AST 13 L (17-59) U/L Total Protein 4.5 L (6.3-8.2) g/dL Albumin 2.1 L (3.5-5.0) g/dL Microbiology - Last 24 Hours (Table) 10/04/23 14:30 Blood Culture - Preliminary Blood 10/04/23 14:45 Blood Culture - Preliminary Blood
[2023-10-07 11:46] LABS: Glucose,Whole Blood 215 mg/dL (70-110)
[2023-10-07] MEDS: IOPAMIDOL CONTRAST (ORAL USE) VIAL PO PRN (11:52)
--- NOTE | 2023-10-07 12:15 | P.PN ---
Subjective patient is seen for follow-up for acute kidney injury. Currently maintained on IV fluids and being treated for C. diff colitis. patient continues to have significant diarrhea. Serum creatinine has decreased to 1.6 from 3.5 on initial admission. Maintained on saline at 100 mL an hour. Objective - Vital Signs Vital signs: Vital Signs Temp 97.7 F 10/07/23 08:00 Pulse 93 10/07/23 11:00 Resp 14 10/07/23 11:00 BP 92/40 10/07/23 11:00 Pulse Ox 93 L 10/07/23 11:00 FiO2 21 10/07/23 08:59 Intake & Output 10/06/23 10/07/23 10/07/23 18:59 06:59 18:59 Intake Total 1575 1859.852 600 Output Total 1065 560 330 Balance 510 1299.852 270 Intake: IV 1575 1200 600 Dextrose 5% in Water 1, 375 000 ml @ 125 mls/hr IV . Q9H12M [facility] with Sodium Bicarb (1 Meq/ml) 150 ml Rx#:[id number] Sodium Chloride 0.9% 1, 900 1200 500 000 ml @ 100 mls/hr IV . Q10H [facility] Rx#:[id number] metroNIDAZOLE-NS PMX 500 200 100 mg In Saline 1 100ml.bag @ 100 mls/hr IVPB QID [facility] Rx#:[id number] Intake, IV Titration 59.852 Amount Norepinephrine 4 mg In 59.852 Sodium Chloride 0.9% 250 ml @ 0.03 MCG/KG/MIN 11. 293 mls/hr IV .[id number] [facility] Rx#:[id number] Oral 600 Output: Urine 1065 560 330 Other: Voiding Method Indwelling Catheter Indwelling Catheter # Bowel Movements 1 1 1 - Exam patient is awake. He just finished physical therapy Examination of the heart S1 and S2 Examination the lungs bilateral breath sounds are heard Abdomen is soft nontender Examination lower extremities shows no significant edema - Labs CBC & Chem 7: 10/07/23 05:37 10/07/23 05:37 Labs: Abnormal Lab Results - Last 24 Hours (Table) 10/06/23 10/06/23 10/07/23 Range/Units 16:24 20:01 05:37 WBC (3.8-10.6) k/uL RBC (4.30-5.90) m/uL Hgb (13.0-17.5) gm/dL Hct (39.0-53.0) % MCHC (31.0-37.0) g/dL Neutrophils # (Manual) (1.3-7.7) k/uL Lymphocytes # (Manual) (1.0-4.8) k/uL Monocytes # (Manual) (0-1.0) k/uL Metamyelocytes # (Man) (0) k/uL Myelocytes # (Manual) (0) k/uL Chloride 113 H (98-107) mmol/L Carbon Dioxide 19 L (22-30) mmol/L BUN 78 H (9-20) mg/dL Creatinine 1.64 H (0.66-1.25) mg/dL POC Glucose (mg/dL) 208 H 237 H (70-110) mg/dL Calcium 7.3 L (8.4-10.2) mg/dL AST 13 L (17-59) U/L Total Protein 4.5 L (6.3-8.2) g/dL Albumin 2.1 L (3.5-5.0) g/dL 10/07/23 10/07/23 Range/Units 05:37 11:45 WBC 30.5 H (3.8-10.6) k/uL RBC 3.45 L (4.30-5.90) m/uL Hgb 10.3 L (13.0-17.5) gm/dL Hct 34.1 L (39.0-53.0) % MCHC 30.3 L (31.0-37.0) g/dL Neutrophils # (Manual) 27.70 H (1.3-7.7) k/uL Lymphocytes # (Manual) 0.92 L (1.0-4.8) k/uL Monocytes # (Manual) 1.53 H (0-1.0) k/uL Metamyelocytes # (Man) 0.31 H (0) k/uL Myelocytes # (Manual) 0.31 H (0) k/uL Chloride (98-107) mmol/L Carbon Dioxide (22-30) mmol/L BUN (9-20) mg/dL Creatinine (0.66-1.25) mg/dL POC Glucose (mg/dL) 215 H (70-110) mg/dL Calcium (8.4-10.2) mg/dL AST (17-59) U/L Total Protein (6.3-8.2) g/dL Albumin (3.5-5.0) g/dL Microbiology - Last 24 Hours (Table) 10/04/23 14:30 Blood Culture - Preliminary Blood 10/04/23 14:45 Blood Culture - Preliminary Blood Assessment and Plan Assessment: 1. Acute kidney injury secondary to ATN secondary to hypotension and hypovolemia. Creatinine 4.38 dated October 01, 2023. It is 1.6 today. Baseline creatinine near 1. No hydronephrosis noted on CT. 2. C. difficile colitis maintained on oral vancomycin. 3. Metabolic acidosis secondary to acute kidney injury and GI losses. 4. Septic shock, s/p Levophed. Plan: continue with IV fluids. Continue with oral sodium bicarb Repeat labs in a.m.
--- NOTE | 2023-10-07 12:15 | P.PN ---
Subjective Progress Note Date: 10/07/23 52-year-old male who is seen in the emergency department, October 04, 2023. The patient came in with weakness, mental status changes, and suspected sepsis. The patient recently had a left below the knee amputation, done by Dr. Domínguez, on September 02. 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 The patient was discharged after number days to a local detention. He came back into the emergency department as mentioned on October 03. He was being treated for a C. difficile infection. He apparently was noted to be febrile, lethargic, and weak, with a low blood pressure. For that reason, he was sent in to the emergency department, and brought in by EMS. I was called by the emergency room physician, who did fluid resuscitation initially, but then started him on some norepinephrine. For that reason, the patient necessitated an admission to the intensive care unit. Currently he is on 2 L of oxygen. He is given D5W with 3 ampoules of sodium bicarb and at 125 cc an hour. His norepinephrine dose is 4 mcg/min. He is currently on IV Flagyl, and oral vancomycin for his C. difficile infection. White count is 21.9, hemoglobin 10.2, hematocrit 32.9, platelet count 199,000. Sodium 139, potassium 4.6, chlorides 119, CO2 9, BUN 99, creatinine 2.96. Glucose is 192. Calcium 8.8, magnesium 2.3. He did test positive here for C. difficile. Chest x-ray is read as normal here. CT of the abdomen and pelvis shows circumferential thickening of the colon throughout its entire length, most compatible with colitis. On today's evaluation of 10/06/2023, the patient is being seen for a follow-up. The patient was moved to the intensive care unit because of ongoing diarrhea and the patient also developed 2 episodes of coffee-ground emesis overnight and the patient is going to undergo an EGD today. The patient is currently on IV Protonix. The patient is NPO. The patient is eating combination IV Flagyl and oral vancomycin regarding acute C. difficile colitis. The patient is currently off pressors. White cell count remains elevated. Remains somewhat encephalopathic although there is improvement in his mentation over the past 12 hours. The white cell count is at 24 with a hemoglobin 9.9 and a platelet count of 198. Sodium is at 140, potassium is 3.8, serum bicarb is improved and is currently up to 21 with a BUN of 80 and a creatinine of 1.9 and the patient is improving in terms of his renal function. The HbA1c is at 7.8. LFTs are normal. Troponins are negative. Most recent blood sugar is 306. The patient is on bicarb infusion which is running at a rate of 125 cc an hour. Serum bicarb is improved. The patient is on Levemir insulin 30 units in the evening and 10 units in the morning along with a NovoLog sliding scale coverage. The patient is currently on oral bicarb supplements. No significant abdominal pain. He does have a large anterior abdominal wall ventral hernia. On 10/07/2023, the patient is being seen for a follow-up. The patient continues to have episodes of diarrhea and the patient remains on a combination of oral vancomycin 500 mg p.o. 4 times daily and IV metronidazole. The patient's abdomen is mildly tender. The white cell count is still elevated at 30.5 with a hemoglobin 10.3 and a platelet count of 65. Creatinine is improving is currently down to 1.64 with a BUN of 78 and a sodium levels at 139. The patient remains on normal saline at a rate of 100 cc an hour. Overnight, the patient had to be placed on pressors and the patient is currently on norepinephrine at 0.05 mcg/kg/min. The patient had a positive fluid balance of 1.8 L over the past 24 hours. The patient underwent an EGD yesterday and the patient was found to have gastritis and biopsies were taken. The patient remains on IV Protonix. Diet will be provided today. Rest of medications remain unchanged. He remains on Levemir 30 units in the evening and 10 units in the morning along with NovoLog 5 units with meals. No other significant events overnight. Blood cultures been negative. General surgery is on the case. Objective - Vital Signs Vital signs: Vital Signs Temp 98.2 F 10/07/23 04:00 Pulse 78 10/07/23 07:00 Resp 15 10/07/23 07:00 BP 90/37 10/07/23 07:00 Pulse Ox 93 L 10/07/23 08:59 FiO2 21 10/07/23 08:59 Intake & Output 10/06/23 10/07/23 10/07/23 18:59 06:59 18:59 Intake Total 1575 1859.852 100 Output Total 1065 560 40 Balance 510 1299.852 60 Intake: IV 1575 1200 100 Dextrose 5% in Water 1, 375 000 ml @ 125 mls/hr IV . Q9H12M [facility] with Sodium Bicarb (1 Meq/ml) 150 ml Rx#:[id number] Sodium Chloride 0.9% 1, 900 1200 100 000 ml @ 100 mls/hr IV . Q10H [facility] Rx#:[id number] metroNIDAZOLE-NS PMX 500 200 mg In Saline 1 100ml.bag @ 100 mls/hr IVPB QID [facility] Rx#:[id number] Intake, IV Titration 59.852 Amount Norepinephrine 4 mg In 59.852 Sodium Chloride 0.9% 250 ml @ 0.03 MCG/KG/MIN 11. 293 mls/hr IV .[id number] [facility] Rx#:[id number] Oral 600 Output: Urine 1065 560 40 Other: Voiding Method Indwelling Catheter Indwelling Catheter # Bowel Movements 1 1 - Exam No acute distress, oriented 3. Currently on nasal O2 at 2 L. No respiratory distress. HEENT examination is grossly unremarkable. Neck supple. Full range of motion. No adenopathy thyromegaly or neck vein distention. Cardiovascular examination reveals regular rhythm rate. S1-S2 normal. No S3 or S4. No discernible murmur noted. Heart rate is 100 bpm. Lungs reveal clear breath sounds. Breath sounds are equal bilaterally. No adventitious lung sounds including wheezes rhonchi or crackles. Saturations are 98%. Abdomen soft with bowel sounds. No masses or tenderness. The patient has large anterior abdominal wall hernias and scars of previous surgeries. The hernia is reducible. No direct tenderness. No rebound tenderness. No guarding. Extremities are intact. No cyanosis clubbing or edema. The patient has a below-knee amputation of the left lower extremity. The surgical stump is healing nicely. There is no active drainage. No erythema. No abscess formation. Skin is without rash or lesion. Neurologic examination is brief but nonfocal. - Labs CBC & Chem 7: 10/07/23 05:37 10/07/23 05:37 Labs: Abnormal Lab Results - Last 24 Hours (Table) 10/06/23 10/06/23 10/06/23 Range/Units 11:59 16:24 20:01 WBC (3.8-10.6) k/uL RBC (4.30-5.90) m/uL Hgb (13.0-17.5) gm/dL Hct (39.0-53.0) % MCHC (31.0-37.0) g/dL Chloride (98-107) mmol/L Carbon Dioxide (22-30) mmol/L BUN (9-20) mg/dL Creatinine (0.66-1.25) mg/dL POC Glucose (mg/dL) 259 H 208 H 237 H (70-110) mg/dL Calcium (8.4-10.2) mg/dL AST (17-59) U/L Total Protein (6.3-8.2) g/dL Albumin (3.5-5.0) g/dL 10/07/23 10/07/23 Range/Units 05:37 05:37 WBC 30.5 H (3.8-10.6) k/uL RBC 3.45 L (4.30-5.90) m/uL Hgb 10.3 L (13.0-17.5) gm/dL Hct 34.1 L (39.0-53.0) % MCHC 30.3 L (31.0-37.0) g/dL Chloride 113 H (98-107) mmol/L Carbon Dioxide 19 L (22-30) mmol/L BUN 78 H (9-20) mg/dL Creatinine 1.64 H (0.66-1.25) mg/dL POC Glucose (mg/dL) (70-110) mg/dL Calcium 7.3 L (8.4-10.2) mg/dL AST 13 L (17-59) U/L Total Protein 4.5 L (6.3-8.2) g/dL Albumin 2.1 L (3.5-5.0) g/dL Microbiology - Last 24 Hours (Table) 10/04/23 14:45 Blood Culture - Preliminary Blood Assessment and Plan Plan: Acute C. difficile colitis, currently on a combination of Flagyl and oral vancomycin, still having diarrhea and white cell count remains elevated and the patient continues to be hypotensive on low-dose pressors. Sepsis/hypotension, secondary to severe diarrhea, from C. difficile colitis, improved and he is currently on IV fluids and low-dose pressors Acute mental status changes, likely on the basis of septic encephalopathy, improved None anion gap metabolic acidosis Coffee-ground emesis x 2 and the patient, post EGD that revealed gastritis and the patient is currently on IV Protonix Acute leukocytosis, secondary to C. difficile colitis Acute kidney injury, Improving and the patient's creatinine is slowly improving and the patient remains on IV fluids Diabetes mellitus, currently on L Levemir insulin 30 units at bedtime and 10 units in the morning along with NovoLog 5 units with meals and sliding scale coverage. He is also on Actos 30 mg p.o. daily. Recent left BKA, September 03, 2023. History of hypertension. History of hyperlipidemia. Nonhealing ulcer, left lower extremity, with subsequent left BKA. Prior history of methicillin-resistant Staph aureus infection, and Proteus mirabilis bacteremia and the patient completed a course of Rocephin and vancomycin on outpatient basis at the [facility]. Large anterior abdominal wall hernia Plan: The patient will be kept on oral vancomycin and IV Flagyl. Monitor diarrhea and the patient has a fecal management system in place Advance diet as tolerated, start with full liquid/soft EGD was done yesterday and the results were noted Continue IV fluids Continue low-dose pressors and gradual wean of the pressors as tolerated Continue oral bicarb supplements Limited use of other goal-directed antibiotic coverage a Surgical wound site over the left lower extremity BKA is dry clean and intact. Renal function is improving Monitor mental status Keep the patient in the intensive care unit and will continue to follow.
[2023-10-07] MEDS ORDERED: Potassium Replacement Protocol 1 EACH MISC MISCELLANE PRN (12:26)
--- NOTE | 2023-10-07 14:02 | CT ---
EXAMINATION TYPE: CT abdomen pelvis wo con CT DLP: 1219.2 mGycm, Automated exposure control for dose reduction was used. DATE OF EXAM: 10/07/2023 1:48 PM COMPARISON: CT abdomen pelvis most recent from 10/04/2023. CLINICAL INDICATION:Male, 52 years old with history of abdominal pain, elevated WBC; abdominal pain, elevated WBC TECHNIQUE: Standard CT of the abdomen and pelvis following the administration of oral contrast. Carr ited evaluation due to lack of intravenous contrast. Coronal and sagittal reformats were performed. FINDINGS: LOWER CHEST: Healing left-sided rib fractures. Small pericardial effusion. Minimal left lower lobe re ticular opacities. ABDOMEN LIVER: Unremarkable noncontrast appearance GALLBLADDER AND BILE DUCTS: Appears contracted. No overt biliary duct dilatation. PANCREAS: Unremarkable noncontrast appearance SPLEEN: Unremarkable noncontrast appearance ADRENAL GLANDS: Unremarkable noncontrast appearance. KIDNEYS AND URETERS: No evidence of hydronephrosis or renal calculus. Duplicated left collecting syst em. PELVIS BLADDER: Decompressed with Domínguez catheter in place. Nondependent gas identified likely from catheter placement. REPRODUCTIVE: Unremarkable. ABDOMEN & PELVIS STOMACH AND BOWEL: Rectal tube identified. Circumferential wall thickening of the rectum with additio nal long segment wall thickening of the sigmoid colon and descending colon, and transverse colon. No pneumatosis. No organized fluid collections. No evidence of bowel obstruction. Enteric contrast reach es the mid small bowel. Small bowel wall appears normal in thickness. The appendix is not definitivel y visualized. PERITONEUM/RETROPERITONEUM: No evidence of pneumoperitoneum. Increased small volume ascites demonstra johnson throughout the abdomen and pelvis. VASCULATURE: Moderate atherosclerotic calcifications are present throughout the abdominal aorta and i ts branches. No evidence of aortic aneurysm. MUSCULOSKELETAL: No acute osseous abnormalities LYMPH NODES: No gross evidence for lymphadenopathy. SOFT TISSUE/ABDOMINAL WALL: Diffuse anasarca. Redemonstration of ventral wall abdominal hernias conta ining fluid and nonobstructive small bowel. The transverse colon protrudes into the hernia. IMPRESSION: Limited evaluation due to lack of intravenous contrast. 1. Similar circumferential thickening of the colon throughout its entirety most compatible with coli tis likely from infectious or inflammatory etiology. Correlate for Pseudomonas colitis. No organizing fluid collection or free air. 2. Increased small bowel and ascites and diffuse anasarca suggesting volume overload. 3. Small pericardial effusion. 4. Trace reticular opacities within the left lower lobe which may relate to bronchiolitis.
--- NOTE | 2023-10-07 14:22 | P.PN ---
Subjective Progress Note Date: 10/07/23 Principal diagnosis: Reason for follow-up is C. 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 difficile colitis. On today's evaluation that is 10/07/2023, the patient continues to be afebrile, the patient is on 2 L nasal cannula oxygen r and breathing comfortably, the Pt denies having any chest pain or cough, the patient denies having any abdominal pain no vomiting and mentioned that he has slowed down. Patient white count is up to 30.5, creatinine is 1.64 blood culture has been negative Objective - Vital Signs Vital signs: Vital Signs Temp 97.7 F 10/07/23 08:00 Pulse 93 10/07/23 11:00 Resp 14 10/07/23 11:00 BP 92/40 10/07/23 11:00 Pulse Ox 93 L 10/07/23 11:00 FiO2 21 10/07/23 08:59 Intake & Output 10/06/23 10/07/23 10/07/23 18:59 06:59 18:59 Intake Total 1575 1859.852 600 Output Total 1065 560 330 Balance 510 1299.852 270 Intake: IV 1575 1200 600 Dextrose 5% in Water 1, 375 000 ml @ 125 mls/hr IV . Q9H12M [facility] with Sodium Bicarb (1 Meq/ml) 150 ml Rx#:[id number] Sodium Chloride 0.9% 1, 900 1200 500 000 ml @ 100 mls/hr IV . Q10H [facility] Rx#:[id number] metroNIDAZOLE-NS PMX 500 200 100 mg In Saline 1 100ml.bag @ 100 mls/hr IVPB QID [facility] Rx#:[id number] Intake, IV Titration 59.852 Amount Norepinephrine 4 mg In 59.852 Sodium Chloride 0.9% 250 ml @ 0.03 MCG/KG/MIN 11. 293 mls/hr IV .[id number] [facility] Rx#:[id number] Oral 600 Output: Urine 1065 560 330 Other: Voiding Method Indwelling Catheter Indwelling Catheter # Bowel Movements 1 1 1 - Exam Middle-age male lying in bed in no distress Respiratory system unlabored breathing decreased breath sound the base Heart S1-S2 regular Abdominal soft no tenderness Extremities no edema feet Skin no rashes, no masses palpable Patient is awake alert oriented x 3 mood and affect is normal Exam compleetd with help of FINISH MOLDER - Labs CBC & Chem 7: 10/07/23 05:37 10/07/23 05:37 Labs: Abnormal Lab Results - Last 24 Hours (Table) 10/06/23 10/06/23 10/07/23 Range/Units 16:24 20:01 05:37 WBC (3.8-10.6) k/uL RBC (4.30-5.90) m/uL Hgb (13.0-17.5) gm/dL Hct (39.0-53.0) % MCHC (31.0-37.0) g/dL Neutrophils # (Manual) (1.3-7.7) k/uL Lymphocytes # (Manual) (1.0-4.8) k/uL Monocytes # (Manual) (0-1.0) k/uL Metamyelocytes # (Man) (0) k/uL Myelocytes # (Manual) (0) k/uL Chloride 113 H (98-107) mmol/L Carbon Dioxide 19 L (22-30) mmol/L BUN 78 H (9-20) mg/dL Creatinine 1.64 H (0.66-1.25) mg/dL POC Glucose (mg/dL) 208 H 237 H (70-110) mg/dL Calcium 7.3 L (8.4-10.2) mg/dL AST 13 L (17-59) U/L Total Protein 4.5 L (6.3-8.2) g/dL Albumin 2.1 L (3.5-5.0) g/dL 10/07/23 10/07/23 Range/Units 05:37 11:45 WBC 30.5 H (3.8-10.6) k/uL RBC 3.45 L (4.30-5.90) m/uL Hgb 10.3 L (13.0-17.5) gm/dL Hct 34.1 L (39.0-53.0) % MCHC 30.3 L (31.0-37.0) g/dL Neutrophils # (Manual) 27.70 H (1.3-7.7) k/uL Lymphocytes # (Manual) 0.92 L (1.0-4.8) k/uL Monocytes # (Manual) 1.53 H (0-1.0) k/uL Metamyelocytes # (Man) 0.31 H (0) k/uL Myelocytes # (Manual) 0.31 H (0) k/uL Chloride (98-107) mmol/L Carbon Dioxide (22-30) mmol/L BUN (9-20) mg/dL Creatinine (0.66-1.25) mg/dL POC Glucose (mg/dL) 215 H (70-110) mg/dL Calcium (8.4-10.2) mg/dL AST (17-59) U/L Total Protein (6.3-8.2) g/dL Albumin (3.5-5.0) g/dL Microbiology - Last 24 Hours (Table) 10/04/23 14:30 Blood Culture - Preliminary Blood 10/04/23 14:45 Blood Culture - Preliminary Blood Assessment and Plan (1) Leukocytosis Current Visit: Yes Status: Acute Code(s): D72.829 - ELEVATED WHITE BLOOD CELL COUNT, UNSPECIFIED SNOMED Code(s): 189603443 (2) C. difficile colitis Current Visit: Yes Status: Acute Code(s): A04.72 - ENTEROCOLITIS D/T CLOSTRIDIUM DIFFICILE, NOT SPCF RECUR SNOMED Code(s): 936905751 Plan: This is a telehealth visit 1patient presented to the hospital with sepsis in this patient who did have hypotension tachycardia low-grade fever and elevated white count medically clear for SIRS/sepsis source is severe C. difficile colitis failing outpatient treatment 2-patient is currently covered with the IV Flagyl along with vancomycin 500 mg every 6 hours mentioned that he has slowed down however the patient had worsening of his white count and the need to be monitored closely Dictation was produced using [employer] dictation software. please excuse any grammatical, word or spelling errors. Time with Patient: Less than 30
[2023-10-07] MEDS: POTASSIUM CHLORIDE ER 20 MEQ TAB.ER PO SCH (16:07)
[2023-10-07 16:39] LABS: Glucose,Whole Blood 313 mg/dL (70-110)
[2023-10-07 20:13] LABS: Glucose,Whole Blood 193 mg/dL (70-110)
[2023-10-07] MEDS: HYDROcodone/APAP 10-325MG 1 EACH TAB PO PRN (22:21)
[2023-10-07] MEDS: ALPRAZolam 0.25 MG TAB PO PRN (23:58)
[2023-10-08 06:16] LABS: Glucose,Whole Blood 150 mg/dL (70-110)
[2023-10-08 07:08] LABS: Basophils % (A) 0 %; Eosinophils # (A) 0.3 k/uL (0-0.7); Eosinophils % (A) 1 %; HCT 31.2 % (39.0-53.0); HGB 9.8 gm/dL (13.0-17.5); Hypochromasia Moderate; Lymphocytes # (A) 1.3 k/uL (1.0-4.8); Lymphocytes % (A) 6 %; MCH 30.4 pg (25.0-35.0); MCHC 31.5 g/dL (31.0-37.0); MCV 96.5 fL (80.0-100.0); Mean Platelet Volume 8.6; Monocytes # (A) 1.2 k/uL (0-1.0); Monocytes % (A) 6 %; Neutrophils # (A) 17.3 k/uL (1.3-7.7); Neutrophils % (A) 84 %; Platelet Count 223 k/uL (150-450); RBC 3.23 m/uL (4.30-5.90); RDW 15.5 % (11.5-15.5); WBC 20.5 k/uL (3.8-10.6)
[2023-10-08 07:27] LABS: African American GFR (CKD) 69 (>60 ml/min/1.73 sqM); Anion Gap 4 mmol/L; Blood Urea Nitrogen 51 mg/dL (9-20); Carbon Dioxide 20 mmol/L (22-30); Chloride 113 mmol/L (98-107); Glucose 136 mg/dL (74-99); Non-African American GFR(CKD) 60 (>60 ml/min/1.73 sqM); Potassium 3.6 mmol/L (3.5-5.1); Sodium 137 mmol/L (137-145)
[2023-10-08] MEDS: FUROSEMIDE 40 MG TAB PO SCH (11:20)
--- NOTE | 2023-10-08 11:36 | PN ---
PROGRESS NOTE SUBJECTIVE: This is a 52-year-old white male, remains in the SICU for severe sepsis secondary to C diff colitis. He is getting better. He had acute tubular necrosis, which has been better. He has white count still over 20,000. Kidney functions improving. BUN is now 51, creatinine is 1.34, GFR 60. Sugars mid 100s. OBJECTIVE: GENERAL: He is more alert, awake. CARDIOVASCULAR: S1, S2. LUNGS: Clear. GI: Soft. Based on other abdominopelvic CT showed left-sided healing fractures, small pericardial effusion. No hydronephrosis. Domínguez catheter in place. Rectal tube identified. Mild segment wall thickening of the sigmoid colon, circumferential wall thickening of the rectum, most likely is from Pseudomonas colitis, volume overload, pericardial effusion, reticular opacities, bronchiolitis. He is on breathing treatments, so I have started them a couple of days ago. He remains on vancomycin. Denies any cough, white count 30 to 20. Blood culture negative. Blood pressure is still low at 92/40, temp 97.7, pulse 80, respiratory rate [address] of the abdomen showed colitis, sepsis secondary to C diff. IV Flagyl, vancomycin. PROGNOSIS: Guarded. Continue current treatment. May be started on rehydration due to ascites. MMODL / IJN: [id number] /
[2023-10-08 11:37] LABS: Glucose,Whole Blood 282 mg/dL (70-110)
[2023-10-08] MEDS: CHOLESTYRAMINE (WITH SUGAR) 4 GM PACKET PO SCH (11:56)
--- NOTE | 2023-10-08 12:21 | P.PN ---
Subjective patient is seen for follow-up for acute kidney injury. Currently maintained on IV fluids and being treated for C. diff colitis. patient continues to have significant diarrhea. Serum creatinine has decreased to 1.3 from 3.5 on initial admission. Maintained on saline at 100 mL an hour. Objective - Vital Signs Vital signs: Vital Signs Temp 97.7 F 10/08/23 09:30 Pulse 82 10/08/23 11:00 Resp 12 10/08/23 11:00 BP 91/66 10/08/23 11:00 Pulse Ox 92 L 10/08/23 11:00 FiO2 40 10/08/23 00:00 Intake & Output 10/07/23 10/08/23 10/08/23 18:59 06:59 18:59 Intake Total 1600 8406.417 3698.042 Output Total 980 910 320 Balance 620 754.540 932.042 Weight 103.4 kg Intake: IV 1600 1200 600 Sodium Chloride 0.9% 1, 1300 1100 500 000 ml @ 100 mls/hr IV . Q10H [facility] Rx#:[id number] metroNIDAZOLE-NS PMX 500 300 100 100 mg In Saline 1 100ml.bag @ 100 mls/hr IVPB QID [facility] Rx#:[id number] Intake, IV Titration 364.540 44.042 Amount Norepinephrine 4 mg In 364.540 44.042 Sodium Chloride 0.9% 250 ml @ 0.03 MCG/KG/MIN 11. 293 mls/hr IV .[id number] [facility] Rx#:[id number] Oral 100 608 Output: Urine 980 910 320 Other: Voiding Method Indwelling Catheter Indwelling Catheter # Bowel Movements 1 2 2 ABP, PAP, CO, CI - Last Documented Arterial Blood Pressure 151/81 - Exam patient is awake. He just finished physical therapy Examination of the heart S1 and S2 Examination the lungs bilateral breath sounds are heard Abdomen is soft nontender Examination lower extremities shows no significant edema, left BKA - Labs CBC & Chem 7: 10/08/23 06:47 10/08/23 06:47 Labs: Abnormal Lab Results - Last 24 Hours (Table) 10/07/23 10/07/23 10/08/23 Range/Units 16:36 20:12 06:14 WBC (3.8-10.6) k/uL RBC (4.30-5.90) m/uL Hgb (13.0-17.5) gm/dL Hct (39.0-53.0) % Neutrophils # (1.3-7.7) k/uL Monocytes # (0-1.0) k/uL Chloride (98-107) mmol/L Carbon Dioxide (22-30) mmol/L BUN (9-20) mg/dL Creatinine (0.66-1.25) mg/dL Glucose (74-99) mg/dL POC Glucose (mg/dL) 313 H 193 H 150 H (70-110) mg/dL Calcium (8.4-10.2) mg/dL 10/08/23 10/08/23 10/08/23 Range/Units 06:47 06:47 11:36 WBC 20.5 H (3.8-10.6) k/uL RBC 3.23 L (4.30-5.90) m/uL Hgb 9.8 L (13.0-17.5) gm/dL Hct 31.2 L (39.0-53.0) % Neutrophils # 17.3 H (1.3-7.7) k/uL Monocytes # 1.2 H (0-1.0) k/uL Chloride 113 H (98-107) mmol/L Carbon Dioxide 20 L (22-30) mmol/L BUN 51 H (9-20) mg/dL Creatinine 1.34 H (0.66-1.25) mg/dL Glucose 136 H (74-99) mg/dL POC Glucose (mg/dL) 282 H (70-110) mg/dL Calcium 7.0 L (8.4-10.2) mg/dL Microbiology - Last 24 Hours (Table) 10/04/23 14:30 Blood Culture - Preliminary Blood 10/04/23 14:45 Blood Culture - Preliminary Blood Assessment and Plan Assessment: 1. Acute kidney injury secondary to ATN secondary to hypotension and hypovolemia. Creatinine 4.38 dated October 01, 2023. It is 1.3 today. Baseline creatinine near 1. No hydronephrosis noted on CT. 2. C. difficile colitis maintained on oral vancomycin. 3. Metabolic acidosis secondary to acute kidney injury and GI losses. 4. Septic shock, s/p Levophed. Plan: continue with IV fluids. Decrease rate. Continue with oral sodium bicarb Repeat labs in a.m.
--- NOTE | 2023-10-08 13:10 | P.PN ---
Subjective Progress Note Date: 10/08/23 CHIEF COMPLAINT: C. difficile colitis HISTORY OF PRESENT ILLNESS: Patient presented with fever weakness and hypotension and is being treated for C. difficile colitis with sepsis. Patient remains in the ICU. He is requiring Levophed for blood pressure support. Patient is status post EGD which had revealed gastritis. Afebrile. WBC is down from 30.5-20.5. Hemoglobin 9.8. Patient has had no further nausea or vomiting. Denies any abdominal pain. He continues to have diarrhea. CT scan from yester day reports similar circumferential thickening of the colon throughout its entirety most compatible with colitis likely from infectious or inflammatory etiology. No organizing fluid collection or free air. Increase small bowel and ascites with diffuse anasarca suggesting volume overload. PHYSICAL EXAM: VITAL SIGNS: Reviewed. GENERAL: no acute distress. ABDOMEN: Soft. Nontender. nondistended. large Ventral hernia is reducible NEUROLOGIC: Alert and oriented. Cranial nerves II through XII grossly intact. ASSESSMENT: 1. C. difficile colitis with worsening leukocytosis 2. Coffee-ground emesis status post EGD revealing gastritis PLAN: -Continue ICU management -Continue supportive care -Continue C. difficile treatment -Continue Protonix for gastritis -Continue to monitor Physician Yarn Handler note has been reviewed by physician. Signing provider agrees with the documented findings, assessment, and plan of care. Objective - Vital Signs Vital signs: Vital Signs Temp 97.7 F 10/08/23 09:30 Pulse 82 10/08/23 11:00 Resp 12 10/08/23 11:00 BP 91/66 10/08/23 11:00 Pulse Ox 92 L 10/08/23 11:00 FiO2 40 10/08/23 00:00 Intake & Output 10/07/23 10/08/23 10/08/23 18:59 06:59 18:59 Intake Total 1600 9919.287 8164.042 Output Total 980 910 320 Balance 620 754.540 932.042 Weight 103.4 kg Intake: IV 1600 1200 600 Sodium Chloride 0.9% 1, 1300 1100 500 000 ml @ 100 mls/hr IV . Q10H [facility] Rx#:[id number] metroNIDAZOLE-NS PMX 500 300 100 100 mg In Saline 1 100ml.bag @ 100 mls/hr IVPB QID [facility] Rx#:[id number] Intake, IV Titration 364.540 44.042 Amount Norepinephrine 4 mg In 364.540 44.042 Sodium Chloride 0.9% 250 ml @ 0.03 MCG/KG/MIN 11. 293 mls/hr IV .[id number] [facility] Rx#:[id number] Oral 100 608 Output: Urine 980 910 320 Other: Voiding Method Indwelling Catheter Indwelling Catheter # Bowel Movements 1 2 2 ABP, PAP, CO, CI - Last Documented Arterial Blood Pressure 151/81 - Labs CBC & Chem 7: 10/08/23 06:47 10/08/23 06:47 Labs: Abnormal Lab Results - Last 24 Hours (Table) 10/07/23 10/07/23 10/08/23 Range/Units 16:36 20:12 06:14 WBC (3.8-10.6) k/uL RBC (4.30-5.90) m/uL Hgb (13.0-17.5) gm/dL Hct (39.0-53.0) % Neutrophils # (1.3-7.7) k/uL Monocytes # (0-1.0) k/uL Chloride (98-107) mmol/L Carbon Dioxide (22-30) mmol/L BUN (9-20) mg/dL Creatinine (0.66-1.25) mg/dL Glucose (74-99) mg/dL POC Glucose (mg/dL) 313 H 193 H 150 H (70-110) mg/dL Calcium (8.4-10.2) mg/dL 10/08/23 10/08/23 10/08/23 Range/Units 06:47 06:47 11:36 WBC 20.5 H (3.8-10.6) k/uL RBC 3.23 L (4.30-5.90) m/uL Hgb 9.8 L (13.0-17.5) gm/dL Hct 31.2 L (39.0-53.0) % Neutrophils # 17.3 H (1.3-7.7) k/uL Monocytes # 1.2 H (0-1.0) k/uL Chloride 113 H (98-107) mmol/L Carbon Dioxide 20 L (22-30) mmol/L BUN 51 H (9-20) mg/dL Creatinine 1.34 H (0.66-1.25) mg/dL Glucose 136 H (74-99) mg/dL POC Glucose (mg/dL) 282 H (70-110) mg/dL Calcium 7.0 L (8.4-10.2) mg/dL Microbiology - Last 24 Hours (Table) 10/04/23 14:30 Blood Culture - Preliminary Blood 10/04/23 14:45 Blood Culture - Preliminary Blood
[2023-10-08] MEDS: IPRATROPIUM-ALBUTEROL 3 ML NEB INHALATION SCH (14:07)
--- NOTE | 2023-10-08 14:14 | P.PN ---
Subjective Progress Note Date: 10/08/23 52-year-old male who is seen in the emergency department, October 04, 2023. The patient came in with weakness, mental status changes, and suspected sepsis. The patient recently had a left below the knee amputation, done by Dr. Domínguez, on September 02. 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 The patient was discharged after number days to a local [facility]. He came back into the emergency department as mentioned on October 03. He was being treated for a C. difficile infection. He apparently was noted to be febrile, lethargic, and weak, with a low blood pressure. For that reason, he was sent in to the emergency department, and brought in by EMS. I was called by the emergency room physician, who did fluid resuscitation initially, but then started him on some norepinephrine. For that reason, the patient necessitated an admission to the intensive care unit. Currently he is on 2 L of oxygen. He is given D5W with 3 ampoules of sodium bicarb and at 125 cc an hour. His norepinephrine dose is 4 mcg/min. He is currently on IV Flagyl, and oral vancomycin for his C. difficile infection. White count is 21.9, hemoglobin 10.2, hematocrit 32.9, platelet count 199,000. Sodium 139, potassium 4.6, chlorides 119, CO2 9, BUN 99, creatinine 2.96. Glucose is 192. Calcium 8.8, magnesium 2.3. He did test positive here for C. difficile. Chest x-ray is read as normal here. CT of the abdomen and pelvis shows circumferential thickening of the colon throughout its entire length, most compatible with colitis. On today's evaluation of 10/06/2023, the patient is being seen for a follow-up. The patient was moved to the intensive care unit because of ongoing diarrhea and the patient also developed 2 episodes of coffee-ground emesis overnight and the patient is going to undergo an EGD today. The patient is currently on IV Protonix. The patient is NPO. The patient is eating combination IV Flagyl and oral vancomycin regarding acute C. difficile colitis. The patient is currently off pressors. White cell count remains elevated. Remains somewhat encephalopathic although there is improvement in his mentation over the past 12 hours. The white cell count is at 24 with a hemoglobin 9.9 and a platelet count of 198. Sodium is at 140, potassium is 3.8, serum bicarb is improved and is currently up to 21 with a BUN of 80 and a creatinine of 1.9 and the patient is improving in terms of his renal function. The HbA1c is at 7.8. LFTs are normal. Troponins are negative. Most recent blood sugar is 306. The patient is on bicarb infusion which is running at a rate of 125 cc an hour. Serum bicarb is improved. The patient is on Levemir insulin 30 units in the evening and 10 units in the morning along with a NovoLog sliding scale coverage. The patient is currently on oral bicarb supplements. No significant abdominal pain. He does have a large anterior abdominal wall ventral hernia. On 10/07/2023, the patient is being seen for a follow-up. The patient continues to have episodes of diarrhea and the patient remains on a combination of oral vancomycin 500 mg p.o. 4 times daily and IV metronidazole. The patient's abdomen is mildly tender. The white cell count is still elevated at 30.5 with a hemoglobin 10.3 and a platelet count of 65. Creatinine is improving is currently down to 1.64 with a BUN of 78 and a sodium levels at 139. The patient remains on normal saline at a rate of 100 cc an hour. Overnight, the patient had to be placed on pressors and the patient is currently on norepinephrine at 0.05 mcg/kg/min. The patient had a positive fluid balance of 1.8 L over the past 24 hours. The patient underwent an EGD yesterday and the patient was found to have gastritis and biopsies were taken. The patient remains on IV Protonix. Diet will be provided today. Rest of medications remain unchanged. He remains on Levemir 30 units in the evening and 10 units in the morning along with NovoLog 5 units with meals. No other significant events overnight. Blood cultures been negative. General surgery is on the case. 10/08/2023, the patient continues to have liquidy diarrhea. The patient also has some flatulence. Remains on IV Flagyl and oral vancomycin. He is on room air oxygen. White cell count is improving and currently down to 20.5 with a hemoglobin 9.8 and a platelet count of 223. Creatinine is also improving and is down to 1.34 with a BUN of 51. Sodium level is at 137, serum bicarb is at 20. Blood sugars at 282. The patient remains on DuoNeb. Furthermore, the patient was taken off the oral vancomycin the patient was switched to Dificid. Rest of the medication remain unchanged. The patient remains on low-dose pressors and the patient is still requiring low-dose norepinephrine which is running 0.02 mcg/kg/min. IV fluids are in the form of normal saline at rate of 100 cc an hour. This is a medication remains unchanged. He remains on Levemir insulin 30 units at nighttime and 10 units in the morning in addition to sliding scale coverage. He is on Lasix 40 mg p.o. daily. Objective - Vital Signs Vital signs: Vital Signs Temp 97.7 F 10/08/23 09:30 Pulse 93 10/08/23 09:30 Resp 18 10/08/23 09:30 BP 118/64 10/08/23 09:30 Pulse Ox 96 10/08/23 09:30 FiO2 40 10/08/23 00:00 Intake & Output 10/07/23 10/08/23 10/08/23 18:59 06:59 18:59 Intake Total 1600 1664.540 454.89 Output Total 980 910 220 Balance 620 754.540 234.89 Weight 103.4 kg Intake: IV 1600 1200 300 Sodium Chloride 0.9% 1, 1300 1100 300 000 ml @ 100 mls/hr IV . Q10H [facility] Rx#:[id number] metroNIDAZOLE-NS PMX 500 300 100 mg In Saline 1 100ml.bag @ 100 mls/hr IVPB QID [facility] Rx#:[id number] Intake, IV Titration 364.540 36.89 Amount Norepinephrine 4 mg In 364.540 36.89 Sodium Chloride 0.9% 250 ml @ 0.03 MCG/KG/MIN 11. 293 mls/hr IV .[id number] [facility] Rx#:[id number] Oral 100 118 Output: Urine 980 910 220 Other: Voiding Method Indwelling Catheter Indwelling Catheter # Bowel Movements 1 2 ABP, PAP, CO, CI - Last Documented Arterial Blood Pressure 151/81 - Exam No acute distress, oriented 3. Currently on nasal O2 at 2 L. No respiratory distress. HEENT examination is grossly unremarkable. Neck supple. Full range of motion. No adenopathy thyromegaly or neck vein distention. Cardiovascular examination reveals regular rhythm rate. S1-S2 normal. No S3 or S4. No discernible murmur noted. Heart rate is 100 bpm. Lungs reveal clear breath sounds. Breath sounds are equal bilaterally. No adventitious lung sounds including wheezes rhonchi or crackles. Saturations are 98%. Abdomen soft with bowel sounds. No masses or tenderness. The patient has large anterior abdominal wall hernias and scars of previous surgeries. The hernia is reducible. No direct tenderness. No rebound tenderness. No guarding. Extremities are intact. No cyanosis clubbing or edema. The patient has a below-knee amputation of the left lower extremity. The surgical stump is healing nicely. There is no active drainage. No erythema. No abscess formation. Skin is without rash or lesion. Neurologic examination is brief but nonfocal. - Labs CBC & Chem 7: 10/08/23 06:47 10/08/23 06:47 Labs: Abnormal Lab Results - Last 24 Hours (Table) 10/07/23 10/07/23 10/07/23 Range/Units 05:37 11:45 16:36 WBC (3.8-10.6) k/uL RBC (4.30-5.90) m/uL Hgb (13.0-17.5) gm/dL Hct (39.0-53.0) % Neutrophils # (1.3-7.7) k/uL Neutrophils # (Manual) 27.70 H (1.3-7.7) k/uL Lymphocytes # (Manual) 0.92 L (1.0-4.8) k/uL Monocytes # (0-1.0) k/uL Monocytes # (Manual) 1.53 H (0-1.0) k/uL Metamyelocytes # (Man) 0.31 H (0) k/uL Myelocytes # (Manual) 0.31 H (0) k/uL Chloride (98-107) mmol/L Carbon Dioxide (22-30) mmol/L BUN (9-20) mg/dL Creatinine (0.66-1.25) mg/dL Glucose (74-99) mg/dL POC Glucose (mg/dL) 215 H 313 H (70-110) mg/dL Calcium (8.4-10.2) mg/dL 10/07/23 10/08/23 10/08/23 Range/Units 20:12 06:14 06:47 WBC 20.5 H (3.8-10.6) k/uL RBC 3.23 L (4.30-5.90) m/uL Hgb 9.8 L (13.0-17.5) gm/dL Hct 31.2 L (39.0-53.0) % Neutrophils # 17.3 H (1.3-7.7) k/uL Neutrophils # (Manual) (1.3-7.7) k/uL Lymphocytes # (Manual) (1.0-4.8) k/uL Monocytes # 1.2 H (0-1.0) k/uL Monocytes # (Manual) (0-1.0) k/uL Metamyelocytes # (Man) (0) k/uL Myelocytes # (Manual) (0) k/uL Chloride (98-107) mmol/L Carbon Dioxide (22-30) mmol/L BUN (9-20) mg/dL Creatinine (0.66-1.25) mg/dL Glucose (74-99) mg/dL POC Glucose (mg/dL) 193 H 150 H (70-110) mg/dL Calcium (8.4-10.2) mg/dL 10/08/23 Range/Units 06:47 WBC (3.8-10.6) k/uL RBC (4.30-5.90) m/uL Hgb (13.0-17.5) gm/dL Hct (39.0-53.0) % Neutrophils # (1.3-7.7) k/uL Neutrophils # (Manual) (1.3-7.7) k/uL Lymphocytes # (Manual) (1.0-4.8) k/uL Monocytes # (0-1.0) k/uL Monocytes # (Manual) (0-1.0) k/uL Metamyelocytes # (Man) (0) k/uL Myelocytes # (Manual) (0) k/uL Chloride 113 H (98-107) mmol/L Carbon Dioxide 20 L (22-30) mmol/L BUN 51 H (9-20) mg/dL Creatinine 1.34 H (0.66-1.25) mg/dL Glucose 136 H (74-99) mg/dL POC Glucose (mg/dL) (70-110) mg/dL Calcium 7.0 L (8.4-10.2) mg/dL Microbiology - Last 24 Hours (Table) 10/04/23 14:45 Blood Culture - Preliminary Blood 10/04/23 14:30 Blood Culture - Preliminary Blood Assessment and Plan Plan: Acute C. difficile colitis, currently on a combination of Flagyl and oral van Dificid, still having diarrhea and white cell count remains elevated and the patient continues to be hypotensive on low-dose pressors. Sepsis/hypotension, secondary to severe diarrhea, from C. difficile colitis, improved and he is currently on IV fluids and low-dose pressors Acute mental status changes, likely on the basis of septic encephalopathy, improved None anion gap metabolic acidosis Coffee-ground emesis x 2 and the patient, post EGD that revealed gastritis and the patient is currently on IV Protonix Acute leukocytosis, secondary to C. difficile colitis, improving Acute kidney injury, Improving and the patient's creatinine is slowly improving and the patient remains on IV fluids, improving Diabetes mellitus, currently on L Levemir insulin 30 units at bedtime and 10 units in the morning along with NovoLog 5 units with meals and sliding scale coverage. He is also on Actos 30 mg p.o. daily. Recent left BKA, September 03, 2023. History of hypertension. History of hyperlipidemia. Nonhealing ulcer, left lower extremity, with subsequent left BKA. Prior history of methicillin-resistant Staph aureus infection, and Proteus mirabilis bacteremia and the patient completed a course of Rocephin and vancomycin on outpatient basis at the [facility]. Large anterior abdominal wall hernia Plan: The patient will be kept on oral Dificid and IV Flagyl. Monitor diarrhea Advance diet as tolerated, start with full liquid/soft EGD was done yesterday and the results were noted Continue IV fluids Continue low-dose pressors and gradual wean of the pressors as tolerated Continue oral bicarb supplements Lantus insulin for blood sugar control Surgical wound site over the left lower extremity BKA is dry clean and intact. Renal function is improving Monitor mental status Keep the patient in the intensive care unit and will continue to follow.
--- NOTE | 2023-10-08 14:45 | PN ---
PROGRESS NOTE SUBJECTIVE: This is a white male. He has severe abdominal distention which was not there prior to admission and shows ascites on a CAT scan. We are going to get a consult with Dr. Ruiz for abdominal distention at this point, COPD status, see if Dr. Mendez can adjust medicines for C diff. The patient is concerned about severe diarrhea, persistent. Remains in ICU. His white count went down to 20,000. OBJECTIVE: CARDIOVASCULAR: S1, S2. LUNGS: Transmitted upper sounds. GI: Soft, but is distended. Increased bowel sounds. HEMATOLOGY: Negative for Homans. PSYCH: Fair mood and affect. VITAL SIGNS: Reviewed He had another abdominal pelvis wall CT yesterday which Dr. Ruiz will be given a 2nd opinion due to abdominal distention. Restart him on his Lasix. He takes Lasix at home for CHF acute on chronic diastolic CHF, so I will start him on his Lasix 40 daily to get some of the water weight out of his belly. Wait for Dr. Ruiz's recommendation. He is alert and oriented x3. Says he has stomatitis from breathing treatments, we are going to switch his breathing treatments around, get a xylocaine elixir for his throat. Continue current treatments. Labs reviewed. Consult reviewed in ICU. Abdomen is distended with increased bowel sounds. Lungs, he has a chronic cough, congestion, possibly aspirating due to abdominal distention. PROGNOSIS: Guarded. Please see further orders. Continue on Protonix as well as Carafate for GERD. Please see further orders. Elevate head of bed. MMODL / IJN: [id number] /
--- NOTE | 2023-10-08 15:11 | P.GSCN ---
History of Present Illness Consult date: 10/08/23 Reason for Consult: Last month left BKA follow-up Requesting physician: Elizabeth Allan History of present illness: This is a pleasant 52-year-old male who had presented to the emergency department 4 days ago with concerns weakness and lethargy. He has a past medical history of diabetes mellitus, hypertension, hyperlipidemia and recent left below the knee amputation on 09/03/2023 for chronic left lower extremity infe cted wounds and Charcot foot. Apparently patient was being treated in the extended care facility for C. difficile colitis. He presented to the emergency department, was found to be hypotensive, febrile and tachycardic and was admitted to the ICU. Infectious disease was consulted for possible sepsis and failed outpatient treatment for C. difficile colitis. Apparently infectious disease has been following and they have consulted vascular surgery to see patient as a follow-up for his left below the knee amputation. Patient states pain has been well-managed. He denies any significant drainage from his surgical site. He has been afebrile. Denies any chest pain, shortness of breath, or abdominal pain. Review of Systems A 14 point review systems was completed all pertinent positives and negatives as stated in the HPI. Past Medical History Past Medical History: Diabetes Mellitus, Hyperlipidemia, Hypertension Additional Past Medical History / Comment(s): STATES SORE ON THE BOTTOM OF LEFT FOOT. 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 Past Psychological History: Anxiety Smoking Status: Former smoker Past Alcohol Use History: Occasional Past Drug Use History: None Reported - Past Family History Mother Family Medical History: Diabetes Mellitus Father Family Medical History: Cancer Medications and Allergies Home Medications Medication Instructions Recorded Confirmed Type HYDROcodone/APAP 7.5-325MG [[place] 1 tab PO Q4H PRN 11/09/21 10/04/23 History 7.5-325] Simvastatin [Zocor] 20 mg PO HS 11/09/21 10/04/23 History sitaGLIPtin [Januvia] 100 mg PO DAILY 11/09/21 10/04/23 History Famotidine 20 mg PO HS 07/01/22 10/04/23 History Sevelamer [Renvela] 800 mg PO W/SUPPER 07/01/22 10/04/23 History Ergocalciferol [Vitamin D2 (1250 1,250 mcg PO TU 10/01/22 10/04/23 History Mcg = 53669 Iu)] Furosemide [Lasix] 40 mg PO DAILY 05/14/23 10/04/23 History Multivitamins, Thera [Multivitamin 1 tab PO DAILY 05/14/23 10/04/23 History (formulary)] Pregabalin [Lyrica] 200 mg PO TID 05/14/23 10/04/23 History ALPRAZolam [Xanax] 0.25 mg PO Q6HR PRN tab 09/05/23 10/04/23 Rx Metoprolol Tartrate [Lopressor] 25 mg PO BID tab 09/05/23 10/04/23 Rx Pioglitazone [Actos] 30 mg PO DAILY tab 09/05/23 10/04/23 Rx Tamsulosin [Flomax] 0.4 mg PO DAILY cap 09/05/23 10/04/23 Rx Cholestyramine (with Sugar) 4 gm PO HS 10/04/23 10/04/23 History [Questran] Ferrous Sulfate [Feosol] 325 mg PO DAILY@0800 10/04/23 10/04/23 History HYDROcodone/APAP 10-325MG [[place] 1 tab PO Q6HR PRN 10/04/23 10/04/23 History 10-325] INSULIN ASPART (NovoLOG) [NovoLOG 15 unit SQ AC-TID 10/04/23 10/04/23 History (formulary)] Insulin Detemir [Levemir Flexpen] 10 unit SQ DAILY 10/04/23 10/04/23 History Insulin Detemir [Levemir Flexpen] 30 units SQ HS 10/04/23 10/04/23 History Ipratropium-Albuterol Nebulize 3 ml INHALATION RT-Q6H PRN 10/04/23 10/04/23 History [Duoneb 0.5 mg-3 mg/3 ml Soln] L.acidoph,Paracasei, B.lactis 1 cap PO BID 10/04/23 10/04/23 History [Probiotic] Loperamide HCl [Imodium A-D] 2 - 4 mg PO QID PRN 10/04/23 10/04/23 History Naloxone HCl [Narcan] 4 mg NASAL DIRECTED PRN 10/04/23 10/04/23 History Ondansetron [Zofran] 4 mg PO Q8H PRN 10/04/23 10/04/23 History Psyllium Husk (with Sugar) 1 tbsp PO HS 10/04/23 10/04/23 History [Metamucil Powder] Sodium Bicarbonate Tab 650 mg PO BID@0800,1600 10/04/23 10/04/23 History metroNIDAZOLE [Flagyl] 500 mg PO TID@0800,1200,1800 10/04/23 10/04/23 History Allergies Allergy/AdvReac Type Severity Reaction Status Date / Time No Known Allergies Allergy Verified 10/04/23 15:00 Surgical - Exam Vital Signs Temp Pulse Resp BP Pulse Ox 99.3 F 100 18 89/46 94 L 10/04/23 14:13 10/04/23 14:13 10/04/23 14:13 10/04/23 14:13 10/04/23 14:13 General appearance: The patient is alert, oriented, appears in no acute distress. HET: Head is normocephalic and atraumatic. Neck: Supple. Heart: Regular. Lungs: Equal expansion, normal respiratory effort. Abdomen: Soft, nondistended. Extremities: Left below the knee amputation with dehiscence medial aspect of incision without any signs of infection. Minimal amount of drainage, with no odor, no redness. Neurological: Alert and oriented. - General General appearance: The patient is alert, oriented, appears in no acute distress. HET: Head is normocephalic and atraumatic. Pupils are equal and reactive. Neck: Supple. Heart: Regular. Lungs: Equal expansion, normal respiratory effort. Abdomen: Soft, nontender, nondistended. Extremities: Normal skin color and turgor. Left BKA. Neurological: No focal deficits. Strength and sensation are grossly intact. Results - Labs 10/08/23 06:47 10/08/23 06:47 Abnormal Lab Results - Last 24 Hours (Table) 10/07/23 10/07/23 10/08/23 Range/Units 16:36 20:12 06:14 WBC (3.8-10.6) k/uL RBC (4.30-5.90) m/uL Hgb (13.0-17.5) gm/dL Hct (39.0-53.0) % Neutrophils # (1.3-7.7) k/uL Monocytes # (0-1.0) k/uL Chloride (98-107) mmol/L Carbon Dioxide (22-30) mmol/L BUN (9-20) mg/dL Creatinine (0.66-1.25) mg/dL Glucose (74-99) mg/dL POC Glucose (mg/dL) 313 H 193 H 150 H (70-110) mg/dL Calcium (8.4-10.2) mg/dL 10/08/23 10/08/23 10/08/23 Range/Units 06:47 06:47 11:36 WBC 20.5 H (3.8-10.6) k/uL RBC 3.23 L (4.30-5.90) m/uL Hgb 9.8 L (13.0-17.5) gm/dL Hct 31.2 L (39.0-53.0) % Neutrophils # 17.3 H (1.3-7.7) k/uL Monocytes # 1.2 H (0-1.0) k/uL Chloride 113 H (98-107) mmol/L Carbon Dioxide 20 L (22-30) mmol/L BUN 51 H (9-20) mg/dL Creatinine 1.34 H (0.66-1.25) mg/dL Glucose 136 H (74-99) mg/dL POC Glucose (mg/dL) 282 H (70-110) mg/dL Calcium 7.0 L (8.4-10.2) mg/dL Microbiology - Last 24 Hours (Table) 10/04/23 14:30 Blood Culture - Preliminary Blood 10/04/23 14:45 Blood Culture - Preliminary Blood Diabetes panel 10/08/23 Range/Units 06:47 Sodium 137 (137-145) mmol/L Potassium 3.6 (3.5-5.1) mmol/L Chloride 113 H (98-107) mmol/L Carbon Dioxide 20 L (22-30) mmol/L BUN 51 H (9-20) mg/dL Creatinine 1.34 H (0.66-1.25) mg/dL Glucose 136 H (74-99) mg/dL Calcium 7.0 L (8.4-10.2) mg/dL Calcium panel 10/08/23 Range/Units 06:47 Calcium 7.0 L (8.4-10.2) mg/dL Pituitary panel 10/08/23 Range/Units 06:47 Sodium 137 (137-145) mmol/L Potassium 3.6 (3.5-5.1) mmol/L Chloride 113 H (98-107) mmol/L Carbon Dioxide 20 L (22-30) mmol/L BUN 51 H (9-20) mg/dL Creatinine 1.34 H (0.66-1.25) mg/dL Glucose 136 H (74-99) mg/dL Calcium 7.0 L (8.4-10.2) mg/dL Adrenal panel 10/08/23 Range/Units 06:47 Sodium 137 (137-145) mmol/L Potassium 3.6 (3.5-5.1) mmol/L Chloride 113 H (98-107) mmol/L Carbon Dioxide 20 L (22-30) mmol/L BUN 51 H (9-20) mg/dL Creatinine 1.34 H (0.66-1.25) mg/dL Glucose 136 H (74-99) mg/dL Calcium 7.0 L (8.4-10.2) mg/dL Assessment and Plan Assessment: 1. Dehiscence of left below the knee amputation likely secondary to swelling, recent left below the knee amputation 09/03/2023 2. History of nonhealing left lower extremity infected wound and Charcot foot 3. C. difficile colitis 4. Hypotension 5. Leukocytosis 6. Acute kidney injury 7. Diabetes mellitus Plan: 1. Consult wound care for BKA wound. Patient will need to follow after discharge 2. May apply wet-to-dry dressing for now 3. Keep stump specialist field engineer and rigid dressing in place 4. Rest of medical management per primary medical team and ICU Thank you for this consultation, patient can follow-up with vascular surgery and couple weeks after discharge. The impression and plan of care has been dictated as directed. Dr. Domínguez I performed a history and examination of this patient, discussed the same with the dictator. I agree with the dictator's note ,documented as a scribe. Any additional findings or plans will be noted.
[2023-10-08 16:42] LABS: Glucose,Whole Blood 199 mg/dL (70-110)
[2023-10-08] MEDS: FIDAXOMICIN 200 MG TABLET PO SCH (16:45)
[2023-10-08 20:42] LABS: Glucose,Whole Blood 262 mg/dL (70-110)
[2023-10-09 06:09] LABS: Glucose,Whole Blood 116 mg/dL (70-110)
[2023-10-09 08:43] LABS: Basophils % (A) 0 %; Eosinophils # (A) 0.3 k/uL (0-0.7); Eosinophils % (A) 2 %; HCT 30.5 % (39.0-53.0); HGB 9.5 gm/dL (13.0-17.5); Hypochromasia Marked; Lymphocytes # (A) 0.9 k/uL (1.0-4.8); Lymphocytes % (A) 5 %; MCHC 31.1 g/dL (31.0-37.0); MCV 99.6 fL (80.0-100.0); Macrocytosis Slight; Mean Platelet Volume 9.3; Monocytes # (A) 1.3 k/uL (0-1.0); Monocytes % (A) 8 %; Neutrophils # (A) 14.4 k/uL (1.3-7.7); Neutrophils % (A) 84 %; Platelet Count 183 k/uL (150-450); RBC 3.06 m/uL (4.30-5.90); RDW 15.4 % (11.5-15.5); WBC 17.1 k/uL (3.8-10.6)
[2023-10-09] MEDS: ZINC OXIDE PASTE (Z-GUARD) 1 APPLIC TOPICAL PRN (08:51)
[2023-10-09 09:05] LABS: ALT 7 U/L (4-49); AST 12 U/L (17-59); African American GFR (CKD) 89 (>60 ml/min/1.73 sqM); Albumin 1.9 g/dL (3.5-5.0); Alkaline Phosphatase 59 U/L (38-126); Anion Gap 3 mmol/L; Blood Urea Nitrogen 35 mg/dL (9-20); Calcium 7.2 mg/dL (8.4-10.2); Carbon Dioxide 18 mmol/L (22-30); Chloride 115 mmol/L (98-107); Glucose 145 mg/dL (74-99); Non-African American GFR(CKD) 77 (>60 ml/min/1.73 sqM); Potassium 3.7 mmol/L (3.5-5.1); Sodium 136 mmol/L (137-145); Total Bilirubin 0.2 mg/dL (0.2-1.3)
[2023-10-09 11:18] VITALS: BMI 31.8
[2023-10-09 11:36] LABS: Glucose,Whole Blood 200 mg/dL (70-110)
--- NOTE | 2023-10-09 11:49 | P.CONS ---
History of Present Illness - Reason for Consult Consult date: 10/09/23 wound care - History of Present Illness This is a 52-year-old patient known to the wound care center being seen for a wound dehiscence of the left below the knee amputation site. Patient has an open ulceration to the medial incision measuring approximately 1.5 x 1.5 x 1 cm a smaller ulceration distally measuring approximately 0.4 x 0.6 x 1 significant amount of slough and nonviable tissue present. No granulation seen within the wound bed. Patient was very upset that the dressing was removed and not reapplied he wants to be able to have a prosthesis put on MARCELO. Explained to the patient that he is not able to have any prosthesis on until the wounds are healed and he would benefit from returning to the wound care center. Patient was apprehensive and stopped speaking to the provider. Review Of Systems: Constitutional: No fever, no chills, no night sweats. No weight change. No weakness, fatigue or lethargy. No daytime sleepiness. Integumentary:reports wounds, no lesions. No rash or pruritus. No unusual b ruising. No change in hair or nails. Physical exam: General Appearance: Alert, cooperative, no distress, appears stated age. Skin: See HPI all other Skin color, texture, tugor normal, no rashes or lesions. Neurologic: Alert oriented x3 Assessment: 1. Surgical wound dehiscence 2. Nonhealing ulceration with muscle involvement without necrosis 3. Diabetic ulcer Plan: 1. Apply Santyl, saline moist gauze, dry gauze, rolled gauze secure with paper tape. Wrap with Faustino wrap for compression. Do not utilize any prosthesis support until ulceration is healed. Patient would benefit from advanced wound care and wound care setting. He has previously been seen in the wound care center. We be happy to see him upon discharge. Thank you for the consultation any questions please contact the wound care center DNP note has been reviewed and discussed with Dr. Vizcaino and the impression and plan of care has been directed as dictated. Past Medical History Past Medical History: Diabetes Mellitus, Hyperlipidemia, Hypertension Additional Past Medical History / Comment(s): STATES SORE ON THE BOTTOM OF LEFT FOOT. 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 Past Psychological History: Anxiety Smoking Status: Former smoker Past Alcohol Use History: Occasional Past Drug Use History: None Reported - Past Family History Mother Family Medical History: Diabetes Mellitus Father Family Medical History: Cancer Medications and Allergies Home Medications Medication Instructions Recorded Confirmed Type HYDROcodone/APAP 7.5-325MG [[place] 1 tab PO Q4H PRN 11/09/21 10/04/23 History 7.5-325] Simvastatin [Zocor] 20 mg PO HS 11/09/21 10/04/23 History sitaGLIPtin [Januvia] 100 mg PO DAILY 11/09/21 10/04/23 History Famotidine 20 mg PO HS 07/01/22 10/04/23 History Sevelamer [Renvela] 800 mg PO W/SUPPER 07/01/22 10/04/23 History Ergocalciferol [Vitamin D2 (1250 1,250 mcg PO TU 10/01/22 10/04/23 History Mcg = 84326 Iu)] Furosemide [Lasix] 40 mg PO DAILY 05/14/23 10/04/23 History Multivitamins, Thera [Multivitamin 1 tab PO DAILY 05/14/23 10/04/23 History (formulary)] Pregabalin [Lyrica] 200 mg PO TID 05/14/23 10/04/23 History ALPRAZolam [Xanax] 0.25 mg PO Q6HR PRN tab 09/05/23 10/04/23 Rx Metoprolol Tartrate [Lopressor] 25 mg PO BID tab 09/05/23 10/04/23 Rx Pioglitazone [Actos] 30 mg PO DAILY tab 09/05/23 10/04/23 Rx Tamsulosin [Flomax] 0.4 mg PO DAILY cap 09/05/23 10/04/23 Rx Cholestyramine (with Sugar) 4 gm PO HS 10/04/23 10/04/23 History [Questran] Ferrous Sulfate [Feosol] 325 mg PO DAILY@0800 10/04/23 10/04/23 History HYDROcodone/APAP 10-325MG [[place] 1 tab PO Q6HR PRN 10/04/23 10/04/23 History 10-325] INSULIN ASPART (NovoLOG) [NovoLOG 15 unit SQ AC-TID 10/04/23 10/04/23 History (formulary)] Insulin Detemir [Levemir Flexpen] 10 unit SQ DAILY 10/04/23 10/04/23 History Insulin Detemir [Levemir Flexpen] 30 units SQ HS 10/04/23 10/04/23 History Ipratropium-Albuterol Nebulize 3 ml INHALATION RT-Q6H PRN 10/04/23 10/04/23 History [Duoneb 0.5 mg-3 mg/3 ml Soln] L.acidoph,Paracasei, B.lactis 1 cap PO BID 10/04/23 10/04/23 History [Probiotic] Loperamide HCl [Imodium A-D] 2 - 4 mg PO QID PRN 10/04/23 10/04/23 History Naloxone HCl [Narcan] 4 mg NASAL DIRECTED PRN 10/04/23 10/04/23 History Ondansetron [Zofran] 4 mg PO Q8H PRN 10/04/23 10/04/23 History Psyllium Husk (with Sugar) 1 tbsp PO HS 10/04/23 10/04/23 History [Metamucil Powder] Sodium Bicarbonate Tab 650 mg PO BID@0800,1600 10/04/23 10/04/23 History metroNIDAZOLE [Flagyl] 500 mg PO TID@0800,1200,1800 10/04/23 10/04/23 History Allergies Allergy/AdvReac Type Severity Reaction Status Date / Time No Known Allergies Allergy Verified 10/04/23 15:00 Physical Exam Vitals: Vital Signs Temp Pulse Pulse Resp BP BP Pulse Ox 10/09/23 08:30 98.1 F 91 16 109/58 98 10/09/23 04:40 103/57 10/09/23 04:00 97.9 F 62 16 98/54 97 10/08/23 23:43 97.3 F L 77 18 94/50 98 10/08/23 20:00 90 32 H 113/75 97 10/08/23 19:00 100 35 H 128/73 99 10/08/23 18:00 82 16 113/57 98 10/08/23 17:00 86 16 115/59 97 10/08/23 16:30 82 22 111/55 98 10/08/23 16:15 85 14 111/59 89 L 10/08/23 16:00 98.0 F 78 15 104/59 97 10/08/23 15:45 79 18 93/64 97 10/08/23 15:30 78 21 100/56 96 10/08/23 15:15 82 19 105/58 98 10/08/23 15:00 78 17 105/62 96 10/08/23 14:45 81 20 97/56 97 10/08/23 14:30 80 19 114/55 95 10/08/23 14:15 78 16 119/55 95 10/08/23 14:00 77 19 119/53 97 10/08/23 13:45 79 18 109/56 96 10/08/23 13:30 74 23 102/76 98 10/08/23 13:15 77 21 99/74 98 10/08/23 13:00 77 16 109/61 96 10/08/23 12:45 75 15 109/59 95 10/08/23 12:30 74 19 106/59 96 10/08/23 12:15 76 8 L 94/53 94 L 10/08/23 12:00 97.7 F 75 15 93/58 93 L 10/08/23 11:45 82 14 97/53 95 Intake and Output 10/08/23 10/09/23 10/09/23 22:59 06:59 14:59 Intake Total 618 360 Output Total 375 850 Balance 243 -850 360 Intake: IV 500 Sodium Chloride 0.9% 1, 400 000 ml @ 100 mls/hr IV . Q10H [facility] Rx#:[id number] metroNIDAZOLE-NS PMX 500 100 mg In Saline 1 100ml.bag @ 100 mls/hr IVPB QID [facility] Rx#:[id number] Oral 118 360 Output: Urine 375 850 Other: Voiding Method Indwelling Catheter Indwelling Catheter Indwelling Catheter # Bowel Movements 3 Weight 103.4 kg Results CBC & Chem 7: 10/09/23 08:13 10/09/23 08:13 Labs: Abnormal Lab Results - Last 24 Hours (Table) 10/08/23 10/08/23 10/08/23 Range/Units 06:47 16:41 20:41 WBC (3.8-10.6) k/uL RBC (4.30-5.90) m/uL Hgb (13.0-17.5) gm/dL Hct (39.0-53.0) % Neutrophils # (1.3-7.7) k/uL Lymphocytes # (1.0-4.8) k/uL Monocytes # (0-1.0) k/uL Sodium (137-145) mmol/L Chloride (98-107) mmol/L Carbon Dioxide (22-30) mmol/L BUN (9-20) mg/dL Glucose (74-99) mg/dL POC Glucose (mg/dL) 199 H 262 H (70-110) mg/dL Calcium (8.4-10.2) mg/dL AST (17-59) U/L Total Protein (6.3-8.2) g/dL Albumin (3.5-5.0) g/dL Procalcitonin 0.32 H (0.02-0.09) ng/mL 10/09/23 10/09/23 10/09/23 Range/Units 06:04 08:13 08:13 WBC 17.1 H (3.8-10.6) k/uL RBC 3.06 L (4.30-5.90) m/uL Hgb 9.5 L (13.0-17.5) gm/dL Hct 30.5 L (39.0-53.0) % Neutrophils # 14.4 H (1.3-7.7) k/uL Lymphocytes # 0.9 L (1.0-4.8) k/uL Monocytes # 1.3 H (0-1.0) k/uL Sodium 136 L (137-145) mmol/L Chloride 115 H (98-107) mmol/L Carbon Dioxide 18 L (22-30) mmol/L BUN 35 H (9-20) mg/dL Glucose 145 H (74-99) mg/dL POC Glucose (mg/dL) 116 H (70-110) mg/dL Calcium 7.2 L (8.4-10.2) mg/dL AST 12 L (17-59) U/L Total Protein 4.0 L (6.3-8.2) g/dL Albumin 1.9 L (3.5-5.0) g/dL Procalcitonin (0.02-0.09) ng/mL 10/09/23 Range/Units 11:35 WBC (3.8-10.6) k/uL RBC (4.30-5.90) m/uL Hgb (13.0-17.5) gm/dL Hct (39.0-53.0) % Neutrophils # (1.3-7.7) k/uL Lymphocytes # (1.0-4.8) k/uL Monocytes # (0-1.0) k/uL Sodium (137-145) mmol/L Chloride (98-107) mmol/L Carbon Dioxide (22-30) mmol/L BUN (9-20) mg/dL Glucose (74-99) mg/dL POC Glucose (mg/dL) 200 H (70-110) mg/dL Calcium (8.4-10.2) mg/dL AST (17-59) U/L Total Protein (6.3-8.2) g/dL Albumin (3.5-5.0) g/dL Procalcitonin (0.02-0.09) ng/mL Microbiology - Last 24 Hours (Table) 10/04/23 14:30 Blood Culture - Preliminary Blood Assessment and Plan (1) Disruption of external operation (surgical) wound, not elsewhere classified, initial encounter Current Visit: Yes Status: Acute Code(s): T81.31XA - DISRUPTION OF EXTERNAL OPERATION (SURGICAL) WOUND, NEC, INIT SNOMED Code(s): 104406979545646 (2) Non-pressure chronic ulcer of left lower leg with muscle involvement without evidence of necrosis Current Visit: Yes Status: Acute Code(s): L97.925 - NON-PRS CHR ULC UNSP PRT L LW LEG W MSL INVL W/O EVD OF NECR SNOMED Code(s): 56500757391175317 (3) Diabetes with skin ulcer Current Visit: No Status: Acute Code(s): E11.622 - TYPE 2 DIABETES MELLITUS WITH OTHER SKIN ULCER; L98.499 - NON-PRESSURE CHRONIC ULCER OF SKIN OF SITES W UNSP SEVERITY SNOMED Code(s): 88656471
--- NOTE | 2023-10-09 12:19 | P.PN ---
Subjective Progress Note Date: 10/09/23 52-year-old male who is seen in the emergency department, October 04, 2023. The patient came in with weakness, mental status changes, and suspected sepsis. The patient recently had a left below the knee amputation, done by Dr. Domínguez, on September 02. 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 The patient was discharged after number days to a local alf. He came back into the emergency department as mentioned on October 03. He was being treated for a C. difficile infection. He apparently was noted to be febrile, lethargic, and weak, with a low blood pressure. For that reason, he was sent in to the emergency department, and brought in by EMS. I was called by the emergency room physician, who did fluid resuscitation initially, but then started him on some norepinephrine. For that reason, the patient necessitated an admission to the intensive care unit. Currently he is on 2 L of oxygen. He is given D5W with 3 ampoules of sodium bicarb and at 125 cc an hour. His norepinephrine dose is 4 mcg/min. He is currently on IV Flagyl, and oral vancomycin for his C. difficile infection. White count is 21.9, hemoglobin 10.2, hematocrit 32.9, platelet count 199,000. Sodium 139, potassium 4.6, chlorides 119, CO2 9, BUN 99, creatinine 2.96. Glucose is 192. Calcium 8.8, magnesium 2.3. He did test positive here for C. difficile. Chest x-ray is read as normal here. CT of the abdomen and pelvis shows circumferential thickening of the colon throughout its entire length, most compatible with colitis. On today's evaluation of 10/06/2023, the patient is being seen for a follow-up. The patient was moved to the intensive care unit because of ongoing diarrhea and the patient also developed 2 episodes of coffee-ground emesis overnight and the patient is going to undergo an EGD today. The patient is currently on IV Protonix. The patient is NPO. The patient is eating combination IV Flagyl and oral vancomycin regarding acute C. difficile colitis. The patient is currently off pressors. White cell count remains elevated. Remains somewhat encephalopathic although there is improvement in his mentation over the past 12 hours. The white cell count is at 24 with a hemoglobin 9.9 and a platelet count of 198. Sodium is at 140, potassium is 3.8, serum bicarb is improved and is currently up to 21 with a BUN of 80 and a creatinine of 1.9 and the patient is improving in terms of his renal function. The HbA1c is at 7.8. LFTs are normal. Troponins are negative. Most recent blood sugar is 306. The patient is on bicarb infusion which is running at a rate of 125 cc an hour. Serum bicarb is improved. The patient is on Levemir insulin 30 units in the evening and 10 units in the morning along with a NovoLog sliding scale coverage. The patient is currently on oral bicarb supplements. No significant abdominal pain. He does have a large anterior abdominal wall ventral hernia. On 10/07/2023, the patient is being seen for a follow-up. The patient continues to have episodes of diarrhea and the patient remains on a combination of oral vancomycin 500 mg p.o. 4 times daily and IV metronidazole. The patient's abdomen is mildly tender. The white cell count is still elevated at 30.5 with a hemoglobin 10.3 and a platelet count of 65. Creatinine is improving is currently down to 1.64 with a BUN of 78 and a sodium levels at 139. The patient remains on normal saline at a rate of 100 cc an hour. Overnight, the patient had to be placed on pressors and the patient is currently on norepinephrine at 0.05 mcg/kg/min. The patient had a positive fluid balance of 1.8 L over the past 24 hours. The patient underwent an EGD yesterday and the patient was found to have gastritis and biopsies were taken. The patient remains on IV Protonix. Diet will be provided today. Rest of medications remain unchanged. He remains on Levemir 30 units in the evening and 10 units in the morning along with NovoLog 5 units with meals. No other significant events overnight. Blood cultures been negative. General surgery is on the case. 10/08/2023, the patient continues to have liquidy diarrhea. The patient also has some flatulence. Remains on IV Flagyl and oral vancomycin. He is on room air oxygen. White cell count is improving and currently down to 20.5 with a hemoglobin 9.8 and a platelet count of 223. Creatinine is also improving and is down to 1.34 with a BUN of 51. Sodium level is at 137, serum bicarb is at 20. Blood sugars at 282. The patient remains on DuoNeb. Furthermore, the patient was taken off the oral vancomycin the patient was switched to Dificid. Rest of the medication remain unchanged. The patient remains on low-dose pressors and the patient is still requiring low-dose norepinephrine which is running 0.02 mcg/kg/min. IV fluids are in the form of normal saline at rate of 100 cc an hour. This is a medication remains unchanged. He remains on Levemir insulin 30 units at nighttime and 10 units in the morning in addition to sliding scale coverage. He is on Lasix 40 mg p.o. daily. 10/09/2023, I am seeing the patient for a follow-up. This patient is on oral Dificid and IV Flagyl. He was transferred out of the intensive care unit yesterday. He remains hemodynamically stable. White cell count continues to improve and is currently down to 17 with a hemoglobin 9.5. BUN 35 with a creatinine of 1.08 and a sodium levels at 136. Afebrile. Hemodynamically stable. No other significant events overnight. Rest of medications remain unchanged. He remains on IV fluid normal saline at rate of 100 cc an hour. The serum bicarb is currently at 18. Objective - Vital Signs Vital signs: Vital Signs Temp 98.1 F 10/09/23 08:30 Pulse 91 10/09/23 08:30 Resp 16 10/09/23 08:30 BP 109/58 10/09/23 08:30 Pulse Ox 98 10/09/23 08:30 FiO2 40 10/08/23 00:00 Intake & Output 10/08/23 10/09/23 10/09/23 18:59 06:59 18:59 Intake Total 2285.350 360 Output Total 970 850 Balance 1315.350 -850 360 Intake: IV 1500 Sodium Chloride 0.9% 1, 1200 000 ml @ 100 mls/hr IV . Q10H [facility] Rx#:[id number] metroNIDAZOLE-NS PMX 500 300 mg In Saline 1 100ml.bag @ 100 mls/hr IVPB QID [facility] Rx#:[id number] Intake, IV Titration 59.350 Amount Norepinephrine 4 mg In 59.350 Sodium Chloride 0.9% 250 ml @ 0.03 MCG/KG/MIN 11. 293 mls/hr IV .[id number] [facility] Rx#:[id number] Oral 726 360 Output: Urine 970 850 Other: Voiding Method Indwelling Catheter Indwelling Catheter Indwelling Catheter # Bowel Movements 2 3 ABP, PAP, CO, CI - Last Documented Arterial Blood Pressure 151/81 - Exam No acute distress, oriented 3. Currently on nasal O2 at 2 L. No respiratory distress. HEENT examination is grossly unremarkable. Neck supple. Full range of motion. No adenopathy thyromegaly or neck vein distention. Cardiovascular examination reveals regular rhythm rate. S1-S2 normal. No S3 or S4. No discernible murmur noted. Heart rate is 100 bpm. Lungs reveal clear breath sounds. Breath sounds are equal bilaterally. No adventitious lung sounds including wheezes rhonchi or crackles. Saturations are 98%. Abdomen soft with bowel sounds. No masses or tenderness. The patient has large anterior abdominal wall hernias and scars of previous surgeries. The hernia is reducible. No direct tenderness. No rebound tenderness. No guarding. Extremities are intact. No cyanosis clubbing or edema. The patient has a below-knee amputation of the left lower extremity. The surgical stump is healing nicely. There is no active drainage. No erythema. No abscess formation. Skin is without rash or lesion. Neurologic examination is brief but nonfocal. - Labs CBC & Chem 7: 10/09/23 08:13 10/09/23 08:13 Labs: Abnormal Lab Results - Last 24 Hours (Table) 10/08/23 10/08/23 10/08/23 Range/Units 06:47 11:36 16:41 WBC (3.8-10.6) k/uL RBC (4.30-5.90) m/uL Hgb (13.0-17.5) gm/dL Hct (39.0-53.0) % Neutrophils # (1.3-7.7) k/uL Lymphocytes # (1.0-4.8) k/uL Monocytes # (0-1.0) k/uL Sodium (137-145) mmol/L Chloride (98-107) mmol/L Carbon Dioxide (22-30) mmol/L BUN (9-20) mg/dL Glucose (74-99) mg/dL POC Glucose (mg/dL) 282 H 199 H (70-110) mg/dL Calcium (8.4-10.2) mg/dL AST (17-59) U/L Total Protein (6.3-8.2) g/dL Albumin (3.5-5.0) g/dL Procalcitonin 0.32 H (0.02-0.09) ng/mL 10/08/23 10/09/23 10/09/23 Range/Units 20:41 06:04 08:13 WBC 17.1 H (3.8-10.6) k/uL RBC 3.06 L (4.30-5.90) m/uL Hgb 9.5 L (13.0-17.5) gm/dL Hct 30.5 L (39.0-53.0) % Neutrophils # 14.4 H (1.3-7.7) k/uL Lymphocytes # 0.9 L (1.0-4.8) k/uL Monocytes # 1.3 H (0-1.0) k/uL Sodium (137-145) mmol/L Chloride (98-107) mmol/L Carbon Dioxide (22-30) mmol/L BUN (9-20) mg/dL Glucose (74-99) mg/dL POC Glucose (mg/dL) 262 H 116 H (70-110) mg/dL Calcium (8.4-10.2) mg/dL AST (17-59) U/L Total Protein (6.3-8.2) g/dL Albumin (3.5-5.0) g/dL Procalcitonin (0.02-0.09) ng/mL 10/09/23 Range/Units 08:13 WBC (3.8-10.6) k/uL RBC (4.30-5.90) m/uL Hgb (13.0-17.5) gm/dL Hct (39.0-53.0) % Neutrophils # (1.3-7.7) k/uL Lymphocytes # (1.0-4.8) k/uL Monocytes # (0-1.0) k/uL Sodium 136 L (137-145) mmol/L Chloride 115 H (98-107) mmol/L Carbon Dioxide 18 L (22-30) mmol/L BUN 35 H (9-20) mg/dL Glucose 145 H (74-99) mg/dL POC Glucose (mg/dL) (70-110) mg/dL Calcium 7.2 L (8.4-10.2) mg/dL AST 12 L (17-59) U/L Total Protein 4.0 L (6.3-8.2) g/dL Albumin 1.9 L (3.5-5.0) g/dL Procalcitonin (0.02-0.09) ng/mL Microbiology - Last 24 Hours (Table) 10/04/23 14:30 Blood Culture - Preliminary Blood Assessment and Plan Plan: Acute C. difficile colitis, currently on a combination of Flagyl and oral Dificid, still having diarrhea and white cell coun is improving and the patient is currently on no pressors Sepsis/hypotension, secondary to severe diarrhea, from C. difficile colitis, improved and he is currently on IV fluids , off pressors Acute mental status changes, likely on the basis of septic encephalopathy, improved None anion gap metabolic acidosis Coffee-ground emesis x 2 and the patient, post EGD that revealed gastritis and the patient is currently on IV Protonix Acute leukocytosis, secondary to C. difficile colitis, improving Acute kidney injury, Improving and the patient's creatinine is slowly improving and the patient remains on IV fluids, improving Diabetes mellitus, currently on L Levemir insulin 30 units at bedtime and 10 units in the morning along with NovoLog 5 units with meals and sliding scale coverage. He is also on Actos 30 mg p.o. daily. Recent left BKA, September 03, 2023. History of hypertension. History of hyperlipidemia. Nonhealing ulcer, left lower extremity, with subsequent left BKA. Prior history of methicillin-resistant Staph aureus infection, and Proteus mirabilis bacteremia and the patient completed a course of Rocephin and vancomycin on outpatient basis at the [facility]. Large anterior abdominal wall hernia Plan: The patient will be kept on oral Dificid and IV Flagyl. Monitor diarrhea Advance diet EGD was done Continue IV fluids Continue low-dose pressors and gradual wean of the pressors as tolerated Continue oral bicarb supplements Lantus insulin for blood sugar control Surgical wound site over the left lower extremity BKA is dry clean and intact. Renal function is improving Monitor mental status Out of the intensive care unit
--- NOTE | 2023-10-09 13:04 | P.PN ---
Subjective Progress Note Date: 10/09/23 Principal diagnosis: Below the knee amputation wound Patient seen and examined as a follow-up. No reported acute changes. He has been afebrile. Leukocytosis improving. Objective - Vital Signs Vital signs: Vital Signs Temp 98.1 F 10/09/23 08:30 Pulse 91 10/09/23 08:30 Resp 16 10/09/23 08:30 BP 109/58 10/09/23 08:30 Pulse Ox 98 10/09/23 08:30 FiO2 40 10/08/23 00:00 Intake & Output 10/08/23 10/09/23 10/09/23 18:59 06:59 18:59 Intake Total 2285.350 360 Output Total 970 850 Balance 1315.350 -850 360 Intake: IV 1500 Sodium Chloride 0.9% 1, 1200 000 ml @ 100 mls/hr IV . Q10H [facility] Rx#:[id number] metroNIDAZOLE-NS PMX 500 300 mg In Saline 1 100ml.bag @ 100 mls/hr IVPB QID [facility] Rx#:[id number] Intake, IV Titration 59.350 Amount Norepinephrine 4 mg In 59.350 Sodium Chloride 0.9% 250 ml @ 0.03 MCG/KG/MIN 11. 293 mls/hr IV .[id number] [facility] Rx#:[id number] Oral 726 360 Output: Urine 970 850 Other: Voiding Method Indwelling Catheter Indwelling Catheter Indwelling Catheter # Bowel Movements 2 3 ABP, PAP, CO, CI - Last Documented Arterial Blood Pressure 151/81 - Exam General appearance: The patient is alert, oriented, appears in no acute distress. HET: Head is normocephalic and atraumatic. Neck: Supple. Abdomen: Soft, nondistended. Extremities: Left below the knee amputation, dressing in place. Neurological: Alert and oriented. - Labs CBC & Chem 7: 10/09/23 08:13 10/09/23 08:13 Labs: Abnormal Lab Results - Last 24 Hours (Table) 10/08/23 10/08/23 10/08/23 Range/Units 06:47 11:36 16:41 WBC (3.8-10.6) k/uL RBC (4.30-5.90) m/uL Hgb (13.0-17.5) gm/dL Hct (39.0-53.0) % Neutrophils # (1.3-7.7) k/uL Lymphocytes # (1.0-4.8) k/uL Monocytes # (0-1.0) k/uL Sodium (137-145) mmol/L Chloride (98-107) mmol/L Carbon Dioxide (22-30) mmol/L BUN (9-20) mg/dL Glucose (74-99) mg/dL POC Glucose (mg/dL) 282 H 199 H (70-110) mg/dL Calcium (8.4-10.2) mg/dL AST (17-59) U/L Total Protein (6.3-8.2) g/dL Albumin (3.5-5.0) g/dL Procalcitonin 0.32 H (0.02-0.09) ng/mL 10/08/23 10/09/23 10/09/23 Range/Units 20:41 06:04 08:13 WBC 17.1 H (3.8-10.6) k/uL RBC 3.06 L (4.30-5.90) m/uL Hgb 9.5 L (13.0-17.5) gm/dL Hct 30.5 L (39.0-53.0) % Neutrophils # 14.4 H (1.3-7.7) k/uL Lymphocytes # 0.9 L (1.0-4.8) k/uL Monocytes # 1.3 H (0-1.0) k/uL Sodium (137-145) mmol/L Chloride (98-107) mmol/L Carbon Dioxide (22-30) mmol/L BUN (9-20) mg/dL Glucose (74-99) mg/dL POC Glucose (mg/dL) 262 H 116 H (70-110) mg/dL Calcium (8.4-10.2) mg/dL AST (17-59) U/L Total Protein (6.3-8.2) g/dL Albumin (3.5-5.0) g/dL Procalcitonin (0.02-0.09) ng/mL 10/09/23 Range/Units 08:13 WBC (3.8-10.6) k/uL RBC (4.30-5.90) m/uL Hgb (13.0-17.5) gm/dL Hct (39.0-53.0) % Neutrophils # (1.3-7.7) k/uL Lymphocytes # (1.0-4.8) k/uL Monocytes # (0-1.0) k/uL Sodium 136 L (137-145) mmol/L Chloride 115 H (98-107) mmol/L Carbon Dioxide 18 L (22-30) mmol/L BUN 35 H (9-20) mg/dL Glucose 145 H (74-99) mg/dL POC Glucose (mg/dL) (70-110) mg/dL Calcium 7.2 L (8.4-10.2) mg/dL AST 12 L (17-59) U/L Total Protein 4.0 L (6.3-8.2) g/dL Albumin 1.9 L (3.5-5.0) g/dL Procalcitonin (0.02-0.09) ng/mL Microbiology - Last 24 Hours (Table) 10/04/23 14:30 Blood Culture - Preliminary Blood Assessment and Plan Assessment: 1. Dehiscence of left below the knee amputation likely secondary to swelling, recent left below the knee amputation 09/03/2023 2. History of nonhealing left lower extremity infected wound and Charcot foot 3. C. difficile colitis 4. Hypotension 5. Leukocytosis 6. Acute kidney injury 7. Diabetes mellitus Plan: 1. Continue local wound care per recommendations from wound care center 2. May apply stump hardwood floor sander, do not apply rigid dressing due to wound and recommendations from wound center 3. Rest of medical management per recommendations from primary medical team 4. There is no indication for any vascular surgical intervention at this time Thank you for this consultation, patient can follow-up with vascular surgery in 1-2 weeks. We will sign off at this time. The impression and plan of care has been dictated as directed. Dr. Domínguez I performed a history and examination of this patient, discussed the same with the dictator. I agree with the dictator's note ,documented as a scribe. Any additional findings or plans will be noted.
--- NOTE | 2023-10-09 13:24 | P.PN ---
Subjective patient is seen for follow-up for acute kidney injury. status post IV fluids. Being treated for C. diff colitis. patient continues to have significant diarrhea. he is complaining of increased lower extremity swelling and some shortness of breath as well. Serum creatinine has decreased to 1.0 from 3.5 on initial admission. Objective - Vital Signs Vital signs: Vital Signs Temp 97.7 F 10/09/23 12:00 Pulse 73 10/09/23 12:00 Resp 16 10/09/23 12:00 BP 103/58 10/09/23 12:00 Pulse Ox 94 L 10/09/23 12:00 FiO2 40 10/08/23 00:00 Intake & Output 10/08/23 10/09/23 10/09/23 18:59 06:59 18:59 Intake Total 2285.350 360 Output Total 970 850 525 Balance 1315.350 -850 -165 Weight 103.4 kg Intake: IV 1500 Sodium Chloride 0.9% 1, 1200 000 ml @ 100 mls/hr IV . Q10H [facility] Rx#:[id number] metroNIDAZOLE-NS PMX 500 300 mg In Saline 1 100ml.bag @ 100 mls/hr IVPB QID [facility] Rx#:[id number] Intake, IV Titration 59.350 Amount Norepinephrine 4 mg In 59.350 Sodium Chloride 0.9% 250 ml @ 0.03 MCG/KG/MIN 11. 293 mls/hr IV .[id number] [facility] Rx#:[id number] Oral 726 360 Output: Urine 970 850 525 Other: Voiding Method Indwelling Catheter Indwelling Catheter Indwelling Catheter # Bowel Movements 2 3 2 ABP, PAP, CO, CI - Last Documented Arterial Blood Pressure 151/81 - Exam patient is awake. He just finished physical therapy Examination of the heart S1 and S2 Examination the lungs bilateral breath sounds are heard Abdomen is soft nontender Examination lower extremities shows 1+ edema, left BKA - Labs CBC & Chem 7: 10/09/23 08:13 10/09/23 08:13 Labs: Abnormal Lab Results - Last 24 Hours (Table) 10/08/23 10/08/23 10/08/23 Range/Units 06:47 16:41 20:41 WBC (3.8-10.6) k/uL RBC (4.30-5.90) m/uL Hgb (13.0-17.5) gm/dL Hct (39.0-53.0) % Neutrophils # (1.3-7.7) k/uL Lymphocytes # (1.0-4.8) k/uL Monocytes # (0-1.0) k/uL Sodium (137-145) mmol/L Chloride (98-107) mmol/L Carbon Dioxide (22-30) mmol/L BUN (9-20) mg/dL Glucose (74-99) mg/dL POC Glucose (mg/dL) 199 H 262 H (70-110) mg/dL Calcium (8.4-10.2) mg/dL AST (17-59) U/L Total Protein (6.3-8.2) g/dL Albumin (3.5-5.0) g/dL Procalcitonin 0.32 H (0.02-0.09) ng/mL 10/09/23 10/09/23 10/09/23 Range/Units 06:04 08:13 08:13 WBC 17.1 H (3.8-10.6) k/uL RBC 3.06 L (4.30-5.90) m/uL Hgb 9.5 L (13.0-17.5) gm/dL Hct 30.5 L (39.0-53.0) % Neutrophils # 14.4 H (1.3-7.7) k/uL Lymphocytes # 0.9 L (1.0-4.8) k/uL Monocytes # 1.3 H (0-1.0) k/uL Sodium 136 L (137-145) mmol/L Chloride 115 H (98-107) mmol/L Carbon Dioxide 18 L (22-30) mmol/L BUN 35 H (9-20) mg/dL Glucose 145 H (74-99) mg/dL POC Glucose (mg/dL) 116 H (70-110) mg/dL Calcium 7.2 L (8.4-10.2) mg/dL AST 12 L (17-59) U/L Total Protein 4.0 L (6.3-8.2) g/dL Albumin 1.9 L (3.5-5.0) g/dL Procalcitonin (0.02-0.09) ng/mL 10/09/23 Range/Units 11:35 WBC (3.8-10.6) k/uL RBC (4.30-5.90) m/uL Hgb (13.0-17.5) gm/dL Hct (39.0-53.0) % Neutrophils # (1.3-7.7) k/uL Lymphocytes # (1.0-4.8) k/uL Monocytes # (0-1.0) k/uL Sodium (137-145) mmol/L Chloride (98-107) mmol/L Carbon Dioxide (22-30) mmol/L BUN (9-20) mg/dL Glucose (74-99) mg/dL POC Glucose (mg/dL) 200 H (70-110) mg/dL Calcium (8.4-10.2) mg/dL AST (17-59) U/L Total Protein (6.3-8.2) g/dL Albumin (3.5-5.0) g/dL Procalcitonin (0.02-0.09) ng/mL Microbiology - Last 24 Hours (Table) 10/04/23 14:30 Blood Culture - Preliminary Blood Assessment and Plan Assessment: 1. Acute kidney injury secondary to ATN secondary to hypotension and hypovolemia. Creatinine 4.38 dated October 01, 2023. It is 1.0 today. Baseline creatinine near 1. No hydronephrosis noted on CT. 2. C. difficile colitis maintained on oral vancomycin. 3. Metabolic acidosis secondary to acute kidney injury and GI losses. 4. Septic shock, s/p Levophed. Plan: can DC IV fluids Continue with oral sodium bicarb Repeat labs in a.m.
[2023-10-09] MEDS: COLLAGENASE 250 UNIT/GM OINTMENT 30 GM TUBE TOPICAL SCH (14:07)
--- NOTE | 2023-10-09 14:17 | XR ---
EXAMINATION TYPE: XR chest 1V DATE OF EXAM: 10/09/2023 COMPARISON: NONE HISTORY: Shortness of breath TECHNIQUE: Single frontal view of the chest is obtained. FINDINGS: There is no focal air space opacity, pleural effusion, or pneumothorax seen. The cardiac silhouette size is within normal limits. The osseous structures are intact. Limited inspiration. IMPRESSION: No definite acute process.
--- NOTE | 2023-10-09 15:03 | P.PN ---
Subjective Progress Note Date: 10/09/23 CHIEF COMPLAINT: C. difficile colitis HISTORY OF PRESENT ILLNESS: Patient presented with fever weakness and hypotension and is being treated for C. difficile colitis with sepsis. Patient was transferred out of the ICU. He denies any abdominal pain. Denies any nausea or vomiting. He is still having diarrhea. Infectious disease has adjusted medications for the C. difficile colitis. They have added Dificid. And patient is getting Questran. Afebrile. WBC is down from 20.5-17.1 Hgb 9.5 PHYSICAL EXAM: VITAL SIGNS: Reviewed. GENERAL: no acute distress. ABDOMEN: Soft. Distended. Nontender. large Ventral hernia is reducible NEUROLOGIC: Alert and oriented. Cranial nerves II through XII grossly intact. ASSESSMENT: 1. C. difficile colitis 2. Coffee-ground emesis status post EGD revealing gastritis PLAN: -No surgical intervention planned -Continue C. difficile treatment -Continue Protonix for gastritis -Continue to monitor -Continue renal diet Physician Town Marshal note has been reviewed by physician. Signing provider agrees with the documented findings, assessment, and plan of care. Objective - Vital Signs Vital signs: Vital Signs Temp 97.7 F 10/09/23 12:00 Pulse 73 10/09/23 12:00 Resp 16 10/09/23 12:00 BP 103/58 10/09/23 12:00 Pulse Ox 94 L 10/09/23 12:00 FiO2 40 10/08/23 00:00 Intake & Output 10/08/23 10/09/23 10/09/23 18:59 06:59 18:59 Intake Total 2285.350 480 Output Total 970 850 525 Balance 1315.350 -850 -45 Weight 103.4 kg Intake: IV 1500 Sodium Chloride 0.9% 1, 1200 000 ml @ 100 mls/hr IV . Q10H [facility] Rx#:[id number] metroNIDAZOLE-NS PMX 500 300 mg In Saline 1 100ml.bag @ 100 mls/hr IVPB QID [facility] Rx#:[id number] Intake, IV Titration 59.350 Amount Norepinephrine 4 mg In 59.350 Sodium Chloride 0.9% 250 ml @ 0.03 MCG/KG/MIN 11. 293 mls/hr IV .[id number] [facility] Rx#:[id number] Oral 726 480 Output: Urine 970 850 525 Other: Voiding Method Indwelling Catheter Indwelling Catheter Indwelling Catheter # Bowel Movements 2 3 1 ABP, PAP, CO, CI - Last Documented Arterial Blood Pressure 151/81 - Labs CBC & Chem 7: 10/09/23 08:13 10/09/23 08:13 Labs: Abnormal Lab Results - Last 24 Hours (Table) 10/08/23 10/08/23 10/08/23 Range/Units 06:47 16:41 20:41 WBC (3.8-10.6) k/uL RBC (4.30-5.90) m/uL Hgb (13.0-17.5) gm/dL Hct (39.0-53.0) % Neutrophils # (1.3-7.7) k/uL Lymphocytes # (1.0-4.8) k/uL Monocytes # (0-1.0) k/uL Sodium (137-145) mmol/L Chloride (98-107) mmol/L Carbon Dioxide (22-30) mmol/L BUN (9-20) mg/dL Glucose (74-99) mg/dL POC Glucose (mg/dL) 199 H 262 H (70-110) mg/dL Calcium (8.4-10.2) mg/dL AST (17-59) U/L Total Protein (6.3-8.2) g/dL Albumin (3.5-5.0) g/dL Procalcitonin 0.32 H (0.02-0.09) ng/mL 10/09/23 10/09/23 10/09/23 Range/Units 06:04 08:13 08:13 WBC 17.1 H (3.8-10.6) k/uL RBC 3.06 L (4.30-5.90) m/uL Hgb 9.5 L (13.0-17.5) gm/dL Hct 30.5 L (39.0-53.0) % Neutrophils # 14.4 H (1.3-7.7) k/uL Lymphocytes # 0.9 L (1.0-4.8) k/uL Monocytes # 1.3 H (0-1.0) k/uL Sodium 136 L (137-145) mmol/L Chloride 115 H (98-107) mmol/L Carbon Dioxide 18 L (22-30) mmol/L BUN 35 H (9-20) mg/dL Glucose 145 H (74-99) mg/dL POC Glucose (mg/dL) 116 H (70-110) mg/dL Calcium 7.2 L (8.4-10.2) mg/dL AST 12 L (17-59) U/L Total Protein 4.0 L (6.3-8.2) g/dL Albumin 1.9 L (3.5-5.0) g/dL Procalcitonin (0.02-0.09) ng/mL 10/09/23 Range/Units 11:35 WBC (3.8-10.6) k/uL RBC (4.30-5.90) m/uL Hgb (13.0-17.5) gm/dL Hct (39.0-53.0) % Neutrophils # (1.3-7.7) k/uL Lymphocytes # (1.0-4.8) k/uL Monocytes # (0-1.0) k/uL Sodium (137-145) mmol/L Chloride (98-107) mmol/L Carbon Dioxide (22-30) mmol/L BUN (9-20) mg/dL Glucose (74-99) mg/dL POC Glucose (mg/dL) 200 H (70-110) mg/dL Calcium (8.4-10.2) mg/dL AST (17-59) U/L Total Protein (6.3-8.2) g/dL Albumin (3.5-5.0) g/dL Procalcitonin (0.02-0.09) ng/mL Microbiology - Last 24 Hours (Table) 10/04/23 14:30 Blood Culture - Preliminary Blood
[2023-10-09 16:45] LABS: Glucose,Whole Blood 209 mg/dL (70-110)
[2023-10-09 19:49] LABS: Glucose,Whole Blood 193 mg/dL (70-110)
--- NOTE | 2023-10-09 21:42 | PN ---
PROGRESS NOTE The patient is doing better today. Oxygen level is 93% on room air. Blood pressure 99/57, temp 98, pulse 89, respiratory rate 16 to 18. Labs show white count is down to 17.1, hemoglobin is 9.5, sodium 136, potassium 3.7, BUN is 35, creatinine 1.08, GFR is 27. Sugars in the mid 100s to 200s. Albumin is low at 1.9. He had abdominal distention for which we had a consult for wound care for surgical wound dehiscence, nonhealing ulcerations, diabetic ulcer. has been given. Renal function, consult with Dr. Alfonso. Creatinine has decreased to 1.0 from 3.4 due to severe dehydration, is greatly improved. C. diff has improved. His renal function is greatly improved. Acute kidney injury secondary to ATN, hypertension, hypokalemia due to C diff colitis, on Vancomycin. Metabolic acidosis improved. Septic shock, status post Levophed, improved. Continue current treatments, PT, OT. Surgery saw the patient for abdominal distention. Coffee-grounds emesis, status post EGD revealing gastritis. on CAT scan, possibly volume overload. I started him on low-dose Lasix. Prognosis guarded. Continue previous treatment for C diff. White count is improving. Prognosis guarded. Remains on a regular floor now. MMODL / IJN: [id number] /
[2023-10-09] MEDS: LIDOCAINE VISCOUS 2% 15 ML CUP PO PRN (21:43)
[2023-10-10 06:11] LABS: Glucose,Whole Blood 157 mg/dL (70-110)
[2023-10-10 10:29] LABS: Basophils % (A) 0 %; Eosinophils # (A) 0.2 k/uL (0-0.7); Eosinophils % (A) 1 %; HCT 31.9 % (39.0-53.0); HGB 9.7 gm/dL (13.0-17.5); Hypochromasia Marked; Lymphocytes # (A) 0.9 k/uL (1.0-4.8); Lymphocytes % (A) 6 %; MCH 30.1 pg (25.0-35.0); MCHC 30.5 g/dL (31.0-37.0); MCV 98.7 fL (80.0-100.0); Macrocytosis Slight; Mean Platelet Volume 9.4; Monocytes # (A) 1.3 k/uL (0-1.0); Monocytes % (A) 9 %; Neutrophils # (A) 12.2 k/uL (1.3-7.7); Neutrophils % (A) 82 %; Platelet Count 198 k/uL (150-450); RBC 3.23 m/uL (4.30-5.90); RDW 15.4 % (11.5-15.5); WBC 14.7 k/uL (3.8-10.6)
[2023-10-10 10:42] LABS: ALT 6 U/L (4-49); AST 12 U/L (17-59); African American GFR (CKD) 79 (>60 ml/min/1.73 sqM); Albumin 1.8 g/dL (3.5-5.0); Alkaline Phosphatase 49 U/L (38-126); Anion Gap 5 mmol/L; Blood Urea Nitrogen 30 mg/dL (9-20); Calcium 7.1 mg/dL (8.4-10.2); Carbon Dioxide 15 mmol/L (22-30); Chloride 116 mmol/L (98-107); Glucose 138 mg/dL (74-99); Non-African American GFR(CKD) 68 (>60 ml/min/1.73 sqM); Potassium 3.8 mmol/L (3.5-5.1); Sodium 136 mmol/L (137-145); Total Bilirubin 0.2 mg/dL (0.2-1.3); Total Protein 3.9 g/dL (6.3-8.2)
--- NOTE | 2023-10-10 11:02 | P.PN ---
Subjective Progress Note Date: 10/10/23 CHIEF COMPLAINT: C. difficile colitis HISTORY OF PRESENT ILLNESS: Patient presented with fever weakness and hypotension and is being treated for C. difficile colitis with sepsis. Patient continues to complain of abdominal bloating. He is still having diarrhea. Afebrile. WBC is down from 17.1-14.7 Hgb 9.7 Patient seen and examined with Dr. Coy PHYSICAL EXAM: VITAL SIGNS: Reviewed. GENERAL: no acute distress. ABDOMEN: Soft. Distended. Nontender. large Ventral hernia is reducible NEUROLOGIC: Alert and oriented. Cranial nerves II through XII grossly intact. ASSESSMENT: 1. C. difficile colitis 2. Coffee-ground emesis status post EGD revealing gastritis PLAN: -No surgical intervention planned -Continue C. difficile treatment -Protonix discontinued due to increasing risk of C. difficile colitis -Continue to monitor -Continue renal diet Physician Claim Trainee note has been reviewed by physician. Signing provider agrees with the documented findings, assessment, and plan of care. Objective - Vital Signs Vital signs: Vital Signs Temp 98.3 F 10/10/23 08:30 Pulse 92 10/10/23 08:30 Resp 16 10/10/23 08:30 BP 114/54 10/10/23 08:30 Pulse Ox 94 L 10/10/23 08:30 FiO2 40 10/08/23 00:00 Intake & Output 10/09/23 10/10/23 10/10/23 18:59 06:59 18:59 Intake Total 720 540 380 Output Total 975 800 Balance -255 -260 380 Weight 103.4 kg Intake: Oral 720 540 380 Output: Urine 975 800 Other: Voiding Method Indwelling Catheter Indwelling Catheter Indwelling Catheter # Bowel Movements 1 1 1 ABP, PAP, CO, CI - Last Documented Arterial Blood Pressure 151/81 - Labs CBC & Chem 7: 10/10/23 09:12 10/10/23 09:12 Labs: Abnormal Lab Results - Last 24 Hours (Table) 10/09/23 10/09/23 10/09/23 Range/Units 11:35 16:43 19:48 WBC (3.8-10.6) k/uL RBC (4.30-5.90) m/uL Hgb (13.0-17.5) gm/dL Hct (39.0-53.0) % MCHC (31.0-37.0) g/dL Neutrophils # (1.3-7.7) k/uL Lymphocytes # (1.0-4.8) k/uL Monocytes # (0-1.0) k/uL Sodium (137-145) mmol/L Chloride (98-107) mmol/L Carbon Dioxide (22-30) mmol/L BUN (9-20) mg/dL Glucose (74-99) mg/dL POC Glucose (mg/dL) 200 H 209 H 193 H (70-110) mg/dL Calcium (8.4-10.2) mg/dL AST (17-59) U/L Total Protein (6.3-8.2) g/dL Albumin (3.5-5.0) g/dL 10/10/23 10/10/23 10/10/23 Range/Units 06:07 09:12 09:12 WBC 14.7 H (3.8-10.6) k/uL RBC 3.23 L (4.30-5.90) m/uL Hgb 9.7 L (13.0-17.5) gm/dL Hct 31.9 L (39.0-53.0) % MCHC 30.5 L (31.0-37.0) g/dL Neutrophils # 12.2 H (1.3-7.7) k/uL Lymphocytes # 0.9 L (1.0-4.8) k/uL Monocytes # 1.3 H (0-1.0) k/uL Sodium 136 L (137-145) mmol/L Chloride 116 H (98-107) mmol/L Carbon Dioxide 15 L (22-30) mmol/L BUN 30 H (9-20) mg/dL Glucose 138 H (74-99) mg/dL POC Glucose (mg/dL) 157 H (70-110) mg/dL Calcium 7.1 L (8.4-10.2) mg/dL AST 12 L (17-59) U/L Total Protein 3.9 L (6.3-8.2) g/dL Albumin 1.8 L (3.5-5.0) g/dL Microbiology - Last 24 Hours (Table) 10/04/23 14:45 Blood Culture - Final Blood
[2023-10-10 11:51] LABS: Glucose,Whole Blood 199 mg/dL (70-110)
--- NOTE | 2023-10-10 15:57 | P.PN ---
Subjective Progress Note Date: 10/10/23 52-year-old male who is seen in the emergency department, October 04, 2023. The patient came in with weakness, mental status changes, and suspected sepsis. The patient recently had a left below the knee amputation, done by Dr. Domínguez, on September 02. 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 The patient was discharged after number days to a local retirement. He came back into the emergency department as mentioned on October 03. He was being treated for a C. difficile infection. He apparently was noted to be febrile, lethargic, and weak, with a low blood pressure. For that reason, he was sent in to the emergency department, and brought in by EMS. I was called by the emergency room physician, who did fluid resuscitation initially, but then started him on some norepinephrine. For that reason, the patient necessitated an admission to the intensive care unit. Currently he is on 2 L of oxygen. He is given D5W with 3 ampoules of sodium bicarb and at 125 cc an hour. His norepinephrine dose is 4 mcg/min. He is currently on IV Flagyl, and oral vancomycin for his C. difficile infection. White count is 21.9, hemoglobin 10.2, hematocrit 32.9, platelet count 199,000. Sodium 139, potassium 4.6, chlorides 119, CO2 9, BUN 99, creatinine 2.96. Glucose is 192. Calcium 8.8, magnesium 2.3. He did test positive here for C. difficile. Chest x-ray is read as normal here. CT of the abdomen and pelvis shows circumferential thickening of the colon throughout its entire length, most compatible with colitis. On today's evaluation of 10/06/2023, the patient is being seen for a follow-up. The patient was moved to the intensive care unit because of ongoing diarrhea and the patient also developed 2 episodes of coffee-ground emesis overnight and the patient is going to undergo an EGD today. The patient is currently on IV Protonix. The patient is NPO. The patient is eating combination IV Flagyl and oral vancomycin regarding acute C. difficile colitis. The patient is currently off pressors. White cell count remains elevated. Remains somewhat encephalopathic although there is improvement in his mentation over the past 12 hours. The white cell count is at 24 with a hemoglobin 9.9 and a platelet count of 198. Sodium is at 140, potassium is 3.8, serum bicarb is improved and is currently up to 21 with a BUN of 80 and a creatinine of 1.9 and the patient is improving in terms of his renal function. The HbA1c is at 7.8. LFTs are normal. Troponins are negative. Most recent blood sugar is 306. The patient is on bicarb infusion which is running at a rate of 125 cc an hour. Serum bicarb is improved. The patient is on Levemir insulin 30 units in the evening and 10 units in the morning along with a NovoLog sliding scale coverage. The patient is currently on oral bicarb supplements. No significant abdominal pain. He does have a large anterior abdominal wall ventral hernia. On 10/07/2023, the patient is being seen for a follow-up. The patient continues to have episodes of diarrhea and the patient remains on a combination of oral vancomycin 500 mg p.o. 4 times daily and IV metronidazole. The patient's abdomen is mildly tender. The white cell count is still elevated at 30.5 with a hemoglobin 10.3 and a platelet count of 65. Creatinine is improving is currently down to 1.64 with a BUN of 78 and a sodium levels at 139. The patient remains on normal saline at a rate of 100 cc an hour. Overnight, the patient had to be placed on pressors and the patient is currently on norepinephrine at 0.05 mcg/kg/min. The patient had a positive fluid balance of 1.8 L over the past 24 hours. The patient underwent an EGD yesterday and the patient was found to have gastritis and biopsies were taken. The patient remains on IV Protonix. Diet will be provided today. Rest of medications remain unchanged. He remains on Levemir 30 units in the evening and 10 units in the morning along with NovoLog 5 units with meals. No other significant events overnight. Blood cultures been negative. General surgery is on the case. 10/08/2023, the patient continues to have liquidy diarrhea. The patient also has some flatulence. Remains on IV Flagyl and oral vancomycin. He is on room air oxygen. White cell count is improving and currently down to 20.5 with a hemoglobin 9.8 and a platelet count of 223. Creatinine is also improving and is down to 1.34 with a BUN of 51. Sodium level is at 137, serum bicarb is at 20. Blood sugars at 282. The patient remains on DuoNeb. Furthermore, the patient was taken off the oral vancomycin the patient was switched to Dificid. Rest of the medication remain unchanged. The patient remains on low-dose pressors and the patient is still requiring low-dose norepinephrine which is running 0.02 mcg/kg/min. IV fluids are in the form of normal saline at rate of 100 cc an hour. This is a medication remains unchanged. He remains on Levemir insulin 30 units at nighttime and 10 units in the morning in addition to sliding scale coverage. He is on Lasix 40 mg p.o. daily. 10/09/2023, I am seeing the patient for a follow-up. This patient is on oral Dificid and IV Flagyl. He was transferred out of the intensive care unit yesterday. He remains hemodynamically stable. White cell count continues to improve and is currently down to 17 with a hemoglobin 9.5. BUN 35 with a creatinine of 1.08 and a sodium levels at 136. Afebrile. Hemodynamically stable. No other significant events overnight. Rest of medications remain unchanged. He remains on IV fluid normal saline at rate of 100 cc an hour. The serum bicarb is currently at 18. On today's evaluation of 10/10/2023, I am seeing the patient for a follow-up. The patient is doing well. No active diarrhea. No nausea vomiting or abdominal pain. Clinically stable. Hemodynamically stable. Serum bicarb is currently at 15 and this was attributed to metabolic acidosis. BUN 30 creatinine 1.2 and sodium is at 136. White cell count is improved and the patient's white cell count is down to 14.7 with a hemoglobin of 9.7. The patient remains on IV Flag yl and oral Dificid for C. difficile colitis. The patient is also receiving bicarb tablets 650 mg p.o. twice a day. The patient remains on room air oxygen. He was able to sit up in a chair today. Calm and comfortable. Objective - Vital Signs Vital signs: Vital Signs Temp 98.3 F 10/10/23 08:30 Pulse 92 10/10/23 08:30 Resp 16 10/10/23 08:30 BP 114/54 10/10/23 08:30 Pulse Ox 94 L 10/10/23 08:30 FiO2 40 10/08/23 00:00 Intake & Output 10/09/23 10/10/23 10/10/23 18:59 06:59 18:59 Intake Total 720 540 380 Output Total 975 800 Balance -255 -260 380 Weight 103.4 kg Intake: Oral 720 540 380 Output: Urine 975 800 Other: Voiding Method Indwelling Catheter Indwelling Catheter Indwelling Catheter # Bowel Movements 1 1 1 ABP, PAP, CO, CI - Last Documented Arterial Blood Pressure 151/81 - Exam No acute distress, oriented 3. Currently on nasal O2 at 2 L. No respiratory distress. HEENT examination is grossly unremarkable. Neck supple. Full range of motion. No adenopathy thyromegaly or neck vein distention. Cardiovascular examination reveals regular rhythm rate. S1-S2 normal. No S3 or S4. No discernible murmur noted. Heart rate is 100 bpm. Lungs reveal clear breath sounds. Breath sounds are equal bilaterally. No a dventitious lung sounds including wheezes rhonchi or crackles. Saturations are 98%. Abdomen soft with bowel sounds. No masses or tenderness. The patient has large anterior abdominal wall hernias and scars of previous surgeries. The hernia is reducible. No direct tenderness. No rebound tenderness. No guarding. Extremities are intact. No cyanosis clubbing or edema. The patient has a below -knee amputation of the left lower extremity. The surgical stump is healing nicely. There is no active drainage. No erythema. No abscess formation. Skin is without rash or lesion. Neurologic examination is brief but nonfocal. - Labs CBC & Chem 7: 10/10/23 09:12 10/10/23 09:12 Labs: Abnormal Lab Results - Last 24 Hours (Table) 10/09/23 10/09/23 10/09/23 Range/Units 11:35 16:43 19:48 WBC (3.8-10.6) k/uL RBC (4.30-5.90) m/uL Hgb (13.0-17.5) gm/dL Hct (39.0-53.0) % MCHC (31.0-37.0) g/dL Neutrophils # (1.3-7.7) k/uL Lymphocytes # (1.0-4.8) k/uL Monocytes # (0-1.0) k/uL Sodium (137-145) mmol/L Chloride (98-107) mmol/L Carbon Dioxide (22-30) mmol/L BUN (9-20) mg/dL Glucose (74-99) mg/dL POC Glucose (mg/dL) 200 H 209 H 193 H (70-110) mg/dL Calcium (8.4-10.2) mg/dL AST (17-59) U/L Total Protein (6.3-8.2) g/dL Albumin (3.5-5.0) g/dL 10/10/23 10/10/23 10/10/23 Range/Units 06:07 09:12 09:12 WBC 14.7 H (3.8-10.6) k/uL RBC 3.23 L (4.30-5.90) m/uL Hgb 9.7 L (13.0-17.5) gm/dL Hct 31.9 L (39.0-53.0) % MCHC 30.5 L (31.0-37.0) g/dL Neutrophils # 12.2 H (1.3-7.7) k/uL Lymphocytes # 0.9 L (1.0-4.8) k/uL Monocytes # 1.3 H (0-1.0) k/uL Sodium 136 L (137-145) mmol/L Chloride 116 H (98-107) mmol/L Carbon Dioxide 15 L (22-30) mmol/L BUN 30 H (9-20) mg/dL Glucose 138 H (74-99) mg/dL POC Glucose (mg/dL) 157 H (70-110) mg/dL Calcium 7.1 L (8.4-10.2) mg/dL AST 12 L (17-59) U/L Total Protein 3.9 L (6.3-8.2) g/dL Albumin 1.8 L (3.5-5.0) g/dL Microbiology - Last 24 Hours (Table) 10/04/23 14:45 Blood Culture - Final Blood Assessment and Plan Plan: Acute C. difficile colitis, currently on a combination of Flagyl and oral Dificid, still having diarrhea and white cell is improving and the patient is currently on no pressors, clinically improving and the patient's white cell count is also improving, currently on Dificid. The patient is also on IV Flagyl. Sepsis/hypotension, secondary to severe diarrhea, from C. difficile colitis, improved and he is currently on IV fluids , off pressors Acute mental status changes, likely on the basis of septic encephalopathy, improved None anion gap metabolic acidosis, serum bicarb replacement orally Coffee-ground emesis x 2 and the patient, post EGD that revealed gastritis and the patient is currently on IV Protonix Acute leukocytosis, secondary to C. difficile colitis, improving Acute kidney injury, Improving and the patient's creatinine is slowly improving and the patient remains on IV fluids, improving Diabetes mellitus, currently on L Levemir insulin 30 units at bedtime and 10 units in the morning along with NovoLog 5 units with meals and sliding scale coverage. He is also on Actos 30 mg p.o. daily. Recent left BKA, September 03, 2023. History of hypertension. History of hyperlipidemia. Nonhealing ulcer, left lower extremity, with subsequent left BKA. Prior history of methicillin-resistant Staph aureus infection, and Proteus mirabilis bacteremia and the patient completed a course of Rocephin and vancomycin on outpatient basis at the [facility]. Large anterior abdominal wall hernia Plan: The patient will be kept on oral Dificid and IV Flagyl. Monitor diarrhea, currently inactive and stable Advance diet EGD was done Continue IV fluids Continue oral bicarb Lantus insulin for blood sugar control Surgical wound site over the left lower extremity BKA is dry clean and intact. Renal function is improving Monitor mental status, back to baseline
[2023-10-10 16:25] LABS: Glucose,Whole Blood 317 mg/dL (70-110)
--- NOTE | 2023-10-10 17:46 | P.PN ---
Subjective patient is seen for follow-up for acute kidney injury. Status post IV fluids. Being treated for C. diff colitis. Diarrhea is improving. Patient was complaining about increased lower extremity swelling. He has been restarted on oral Lasix. Serum creatinine slightly higher at 1.2 from 1.0 yesterday. Systolic blood pressure 97 to 100 mmHg. Maintained on low-dose metoprolol Objective - Vital Signs Vital signs: Vital Signs Temp 98.5 F 10/10/23 16:00 Pulse 80 10/10/23 16:00 Resp 16 10/10/23 16:00 BP 101/56 10/10/23 16:00 Pulse Ox 96 10/10/23 16:00 FiO2 40 10/08/23 00:00 Intake & Output 10/09/23 10/10/23 10/10/23 18:59 06:59 18:59 Intake Total 720 540 740 Output Total 975 800 Balance -255 -260 740 Weight 103.4 kg Intake: Oral 720 540 740 Output: Urine 975 800 Other: Voiding Method Indwelling Catheter Indwelling Catheter Indwelling Catheter # Bowel Movements 1 1 1 ABP, PAP, CO, CI - Last Documented Arterial Blood Pressure 151/81 - Exam patient is awake. Alert oriented x 3 Examination of the heart S1 and S2 Examination the lungs bilateral breath sounds are heard Abdomen is soft nontender Examination lower extremities shows 1+ edema, left BKA - Labs CBC & Chem 7: 10/10/23 09:12 10/10/23 09:12 Labs: Abnormal Lab Results - Last 24 Hours (Table) 10/09/23 10/10/23 10/10/23 Range/Units 19:48 06:07 09:12 WBC 14.7 H (3.8-10.6) k/uL RBC 3.23 L (4.30-5.90) m/uL Hgb 9.7 L (13.0-17.5) gm/dL Hct 31.9 L (39.0-53.0) % MCHC 30.5 L (31.0-37.0) g/dL Neutrophils # 12.2 H (1.3-7.7) k/uL Lymphocytes # 0.9 L (1.0-4.8) k/uL Monocytes # 1.3 H (0-1.0) k/uL Sodium (137-145) mmol/L Chloride (98-107) mmol/L Carbon Dioxide (22-30) mmol/L BUN (9-20) mg/dL Glucose (74-99) mg/dL POC Glucose (mg/dL) 193 H 157 H (70-110) mg/dL Calcium (8.4-10.2) mg/dL AST (17-59) U/L Total Protein (6.3-8.2) g/dL Albumin (3.5-5.0) g/dL 10/10/23 10/10/23 10/10/23 Range/Units 09:12 11:49 16:24 WBC (3.8-10.6) k/uL RBC (4.30-5.90) m/uL Hgb (13.0-17.5) gm/dL Hct (39.0-53.0) % MCHC (31.0-37.0) g/dL Neutrophils # (1.3-7.7) k/uL Lymphocytes # (1.0-4.8) k/uL Monocytes # (0-1.0) k/uL Sodium 136 L (137-145) mmol/L Chloride 116 H (98-107) mmol/L Carbon Dioxide 15 L (22-30) mmol/L BUN 30 H (9-20) mg/dL Glucose 138 H (74-99) mg/dL POC Glucose (mg/dL) 199 H 317 H (70-110) mg/dL Calcium 7.1 L (8.4-10.2) mg/dL AST 12 L (17-59) U/L Total Protein 3.9 L (6.3-8.2) g/dL Albumin 1.8 L (3.5-5.0) g/dL Microbiology - Last 24 Hours (Table) 10/04/23 14:30 Blood Culture - Final Blood 10/04/23 14:45 Blood Culture - Final Blood Assessment and Plan Assessment: 1. Acute kidney injury secondary to ATN secondary to hypotension and hypovolemia. Creatinine 4.38 dated October 01, 2023. It is 1.2 today. Baseline creatinine near 1. No hydronephrosis noted on CT. Restarted on Lasix due to lower extremity edema. 2. C. difficile colitis maintained on oral vancomycin. 3. Metabolic acidosis secondary to acute kidney injury and GI losses. 4. Septic shock, s/p Levophed. Plan: Increase sodium bicarb to 3 times daily. Hold Lasix in a.m. if serum creatinine is higher. Edema is mostly related to significant hypoalbuminemia with underlying colitis. Chest x-ray was clear on 10/09/2023. Repeat labs in a.m.
[2023-10-10 20:55] LABS: Glucose,Whole Blood 253 mg/dL (70-110)
[2023-10-10] MEDS: SODIUM BICARBONATE TAB 650 MG TAB PO SCH (21:00)
--- NOTE | 2023-10-10 22:21 | PN ---
PROGRESS NOTE SUBJECTIVE: The patient is slowly improving. Blood pressure 101/56, O2 96 on room air, temp 98.5, pulse 80, respiratory rate 16 to 18, white count 14.7, hemoglobin is 9.7, neutrophils 12.2, sodium 136, potassium 3.8, CO2 is 15. Sugars mid 100s up to high to 100s and now 317. Albumin level is super low at 1.5. We will get consult with dietitian. White count 14.7, hemoglobin is 9.7, neutrophils 12.2, sodium 136, potassium 3.8, BUN 30, creatinine 1.20, GFR is 68. Sugars mid 100s to 200s. Abdomen is distended, obesity, possibly ascites. bowel sounds. OBJECTIVE: HEMATOLOGY: 2+ edema. NEUROLOGIC: Cranial nerves intact. PSYCH: Fair mood and affect. He has C diff colitis and colitis with abdominal distention, leukocytosis, sepsis, hypotension, moderate mental status changes, anion gap metabolic acidosis, acute C diff colitis. Combination of Flagyl and oral . White count is improving, diabetes mellitus, acute kidney injury, dehydration, coffee-grounds emesis, status post EGD, IV Protonix, hypertension, dyslipidemia, non-healing ulcer status post amputation, history of MRSA, bacteremia, large anterior abdominal wall hernia, oral bicarb, IV fluids, insulin, extra doses of Flagyl. Prognosis guarded. MMODL / IJN: [id number] /
[2023-10-11 06:18] LABS: Glucose,Whole Blood 141 mg/dL (70-110)
--- NOTE | 2023-10-11 07:19 | P.PN ---
Progress Note - Text Progress Note Date: 10/11/23 CHIEF COMPLAINT: C. difficile colitis HISTORY OF PRESENT ILLNESS: NAEO PHYSICAL EXAM: VITAL SIGNS: Reviewed. GENERAL: no acute distress. ABDOMEN: Soft. Distended. Nontender. large Ventral hernia is reducible NEUROLOGIC: Alert and oriented. Cranial nerves II through XII grossly intact. ASSESSMENT: 1. C. difficile colitis 2. Coffee-ground emesis status post EGD revealing gastritis PLAN: -No surgical intervention planned -Continue C. difficile treatment -Protonix discontinued due to increasing risk of C. difficile colitis -Continue to monitor -Continue renal diet
[2023-10-11 10:28] LABS: Basophils % (A) 0 %; Eosinophils # (A) 0.3 k/uL (0-0.7); Eosinophils % (A) 2 %; HCT 32.4 % (39.0-53.0); HGB 9.6 gm/dL (13.0-17.5); Hypochromasia Marked; Lymphocytes # (A) 1.2 k/uL (1.0-4.8); Lymphocytes % (A) 9 %; MCH 29.3 pg (25.0-35.0); MCHC 29.7 g/dL (31.0-37.0); MCV 98.5 fL (80.0-100.0); Macrocytosis Slight; Mean Platelet Volume 9.8; Monocytes # (A) 0.8 k/uL (0-1.0); Monocytes % (A) 6 %; Neutrophils % (A) 82 %; Platelet Count 238 k/uL (150-450); RBC 3.29 m/uL (4.30-5.90); RDW 15.7 % (11.5-15.5); WBC 13.5 k/uL (3.8-10.6)
[2023-10-11 10:41] LABS: ALT <6 U/L (4-49); AST 12 U/L (17-59); African American GFR (CKD) >90 (>60 ml/min/1.73 sqM); Albumin 1.8 g/dL (3.5-5.0); Alkaline Phosphatase 51 U/L (38-126); Anion Gap 4 mmol/L; Blood Urea Nitrogen 23 mg/dL (9-20); Calcium 7.5 mg/dL (8.4-10.2); Carbon Dioxide 15 mmol/L (22-30); Chloride 117 mmol/L (98-107); Glucose 140 mg/dL (74-99); Non-African American GFR(CKD) 81 (>60 ml/min/1.73 sqM); Potassium 4.1 mmol/L (3.5-5.1); Sodium 136 mmol/L (137-145); Total Bilirubin 0.1 mg/dL (0.2-1.3)
--- NOTE | 2023-10-11 11:52 | PN ---
PROGRESS NOTE A 52-year-old white male with C diff colitis. His abdomen is distended. Large ventral hernia is reducible. He is alert and oriented x3. He is feeling better. He has C diff colitis, coffee-grounds emesis, status post EGD, gastritis. No surgical intervention. Possibly looking for ascites and possibly get Dr. Cruz to drain it on Friday if it is possible. Continue C difficile treatment. Continue to monitor. Continue renal diet. Prognosis guarded. PT, OT. Temp 98.6, pulse 80, respiratory rate 16 to 18, blood pressure 100/65, 99% on room air. ASSESSMENT: Clostridium difficile colitis, status post amputation, diabetes mellitus, electrolyte abnormality, acute on chronic anemia, dehydration, severe protein-calorie malnutrition. We will get dietitian involved for his severely low protein albumin levels. Prognosis guarded. Please see further orders. MMODL / IJN: [id number] /
[2023-10-11 12:27] LABS: Glucose,Whole Blood 244 mg/dL (70-110)
--- NOTE | 2023-10-11 13:11 | US ---
EXAMINATION TYPE: US abdomen limited DATE OF EXAM: 10/11/2023 COMPARISON: CT CLINICAL INDICATION: Male, 52 years old with history of ascites; ABD distention Mild amount of ascites within ABD IMPRESSION: Small amount of ascites.
[2023-10-11] MEDS: ALBUMIN HUMAN 25% 50 ML in EMPTY BAG 1 BAG IVPB SCH (14:11)
--- NOTE | 2023-10-11 15:52 | P.PN ---
Subjective Progress Note Date: 10/08/23 Principal diagnosis: Reason for follow-up is C. 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 difficile colitis. On today's evaluation that is 10/08/2023, Patient is afebrile patient is currently on room air and denies having any shortness of breath, the patient de nies any chest pain or cough, the patient denies any nausea vomiting did not have any abdominal pain still having multiple loose stool as reported by the nursing staff Patient white count is down to 20.5 creatinine is 1.34 Objective - Vital Signs Vital signs: Vital Signs Temp 97.7 F 10/08/23 09:30 Pulse 82 10/08/23 11:00 Resp 12 10/08/23 11:00 BP 91/66 10/08/23 11:00 Pulse Ox 92 L 10/08/23 11:00 FiO2 40 10/08/23 00:00 Intake & Output 10/07/23 10/08/23 10/08/23 18:59 06:59 18:59 Intake Total 1600 8603.478 3477.350 Output Total 980 910 320 Balance 620 754.540 947.350 Weight 103.4 kg Intake: IV 1600 1200 600 Sodium Chloride 0.9% 1, 1300 1100 500 000 ml @ 100 mls/hr IV . Q10H CARL Rx#:[id number] metroNIDAZOLE-NS PMX 500 300 100 100 mg In Saline 1 100ml.bag @ 100 mls/hr IVPB QID CARL Rx#:[id number] Intake, IV Titration 364.540 59.350 Amount Norepinephrine 4 mg In 364.540 59.350 Sodium Chloride 0.9% 250 ml @ 0.03 MCG/KG/MIN 11. 293 mls/hr IV .[id number] CARL Rx#:[id number] Oral 100 608 Output: Urine 980 910 320 Other: Voiding Method Indwelling Catheter Indwelling Catheter # Bowel Movements 1 2 2 ABP, PAP, CO, CI - Last Documented Arterial Blood Pressure 151/81 - Exam Middle-age male lying in bed in no distress Respiratory system unlabored breathing decreased breath sound the base Heart S1-S2 regular Abdominal soft no tenderness Extremities no edema feet Skin no rashes, no masses palpable Patient is awake alert oriented x 3 mood and affect is normal Exam compleetd with help of CLIENT RENEWAL SPECIALIST - Labs CBC & Chem 7: 10/11/23 08:26 10/11/23 08:26 Labs: Abnormal Lab Results - Last 24 Hours (Table) 10/07/23 10/07/23 10/08/23 Range/Units 16:36 20:12 06:14 WBC (3.8-10.6) k/uL RBC (4.30-5.90) m/uL Hgb (13.0-17.5) gm/dL Hct (39.0-53.0) % Neutrophils # (1.3-7.7) k/uL Monocytes # (0-1.0) k/uL Chloride (98-107) mmol/L Carbon Dioxide (22-30) mmol/L BUN (9-20) mg/dL Creatinine (0.66-1.25) mg/dL Glucose (74-99) mg/dL POC Glucose (mg/dL) 313 H 193 H 150 H (70-110) mg/dL Calcium (8.4-10.2) mg/dL 10/08/23 10/08/23 10/08/23 Range/Units 06:47 06:47 11:36 WBC 20.5 H (3.8-10.6) k/uL RBC 3.23 L (4.30-5.90) m/uL Hgb 9.8 L (13.0-17.5) gm/dL Hct 31.2 L (39.0-53.0) % Neutrophils # 17.3 H (1.3-7.7) k/uL Monocytes # 1.2 H (0-1.0) k/uL Chloride 113 H (98-107) mmol/L Carbon Dioxide 20 L (22-30) mmol/L BUN 51 H (9-20) mg/dL Creatinine 1.34 H (0.66-1.25) mg/dL Glucose 136 H (74-99) mg/dL POC Glucose (mg/dL) 282 H (70-110) mg/dL Calcium 7.0 L (8.4-10.2) mg/dL Microbiology - Last 24 Hours (Table) 10/04/23 14:30 Blood Culture - Preliminary Blood 10/04/23 14:45 Blood Culture - Preliminary Blood Assessment and Plan (1) Leukocytosis Current Visit: Yes Status: Acute Code(s): D72.829 - ELEVATED WHITE BLOOD CELL COUNT, UNSPECIFIED SNOMED Code(s): 849762458 (2) C. difficile colitis Current Visit: Yes Status: Acute Code(s): A04.72 - ENTEROCOLITIS D/T CLOSTRIDIUM DIFFICILE, NOT SPCF RECUR SNOMED Code(s): 813263273 Plan: This is a telehealth visit 1patient presented to the hospital with sepsis in this patient who did have hypotension tachycardia low-grade fever and elevated white count medically clear for SIRS/sepsis source is severe C. difficile colitis failing outpatient treatment 2-patient did have persistent diarrhea as reported by the nursing staff we will discontinue oral vancomycin start the patient on Dificid encouraged to increase his yogurt intake Dictation was produced using [email or web address] dictation software. please excuse any gr ammatical, word or spelling errors. Time with Patient: Less than 30
--- NOTE | 2023-10-11 15:53 | P.PN ---
Subjective Progress Note Date: 10/09/23 Principal diagnosis: Reason for follow-up is C. 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 difficile colitis. On today's evaluation that is 10/09/2023, patient has been afebrile, patient is breathing comfortably and is currently on room air, patient denies having any significant cough no chest pain shortness of breath, patient denies nausea vomiting abdominal pain still having some diarrhea. Patient white count is down to 17.1 creatinine 1.08 Objective - Vital Signs Vital signs: Vital Signs Temp 97.9 F 10/09/23 04:00 Pulse 62 10/09/23 04:00 Resp 16 10/09/23 04:00 BP 103/57 10/09/23 04:40 Pulse Ox 97 10/09/23 04:00 FiO2 40 10/08/23 00:00 Intake & Output 10/08/23 10/09/23 10/09/23 18:59 06:59 18:59 Intake Total 2285.350 360 Output Total 970 850 Balance 1315.350 -850 360 Intake: IV 1500 Sodium Chloride 0.9% 1, 1200 000 ml @ 100 mls/hr IV . Q10H CARL Rx#:[id number] metroNIDAZOLE-NS PMX 500 300 mg In Saline 1 100ml.bag @ 100 mls/hr IVPB QID CARL Rx#:[id number] Intake, IV Titration 59.350 Amount Norepinephrine 4 mg In 59.350 Sodium Chloride 0.9% 250 ml @ 0.03 MCG/KG/MIN 11. 293 mls/hr IV .[id number] CARL Rx#:[id number] Oral 726 360 Output: Urine 970 850 Other: Voiding Method Indwelling Catheter Indwelling Catheter # Bowel Movements 2 3 ABP, PAP, CO, CI - Last Documented Arterial Blood Pressure 151/81 - Exam Middle-age male lying in bed in no distress Respiratory system unlabored breathing decreased breath sound the base Heart S1-S2 regular Abdominal soft no tenderness Extremities no edema feet Skin no rashes, no masses palpable Patient is awake alert oriented x 3 mood and affect is normal Exam compleetd with help of JOB SETTER - Labs CBC & Chem 7: 10/11/23 08:26 10/11/23 08:26 Labs: Abnormal Lab Results - Last 24 Hours (Table) 10/08/23 10/08/23 10/08/23 Range/Units 06:47 11:36 16:41 WBC (3.8-10.6) k/uL RBC (4.30-5.90) m/uL Hgb (13.0-17.5) gm/dL Hct (39.0-53.0) % Neutrophils # (1.3-7.7) k/uL Lymphocytes # (1.0-4.8) k/uL Monocytes # (0-1.0) k/uL Sodium (137-145) mmol/L Chloride (98-107) mmol/L Carbon Dioxide (22-30) mmol/L BUN (9-20) mg/dL Glucose (74-99) mg/dL POC Glucose (mg/dL) 282 H 199 H (70-110) mg/dL Calcium (8.4-10.2) mg/dL AST (17-59) U/L Total Protein (6.3-8.2) g/dL Albumin (3.5-5.0) g/dL Procalcitonin 0.32 H (0.02-0.09) ng/mL 10/08/23 10/09/23 10/09/23 Range/Units 20:41 06:04 08:13 WBC 17.1 H (3.8-10.6) k/uL RBC 3.06 L (4.30-5.90) m/uL Hgb 9.5 L (13.0-17.5) gm/dL Hct 30.5 L (39.0-53.0) % Neutrophils # 14.4 H (1.3-7.7) k/uL Lymphocytes # 0.9 L (1.0-4.8) k/uL Monocytes # 1.3 H (0-1.0) k/uL Sodium (137-145) mmol/L Chloride (98-107) mmol/L Carbon Dioxide (22-30) mmol/L BUN (9-20) mg/dL Glucose (74-99) mg/dL POC Glucose (mg/dL) 262 H 116 H (70-110) mg/dL Calcium (8.4-10.2) mg/dL AST (17-59) U/L Total Protein (6.3-8.2) g/dL Albumin (3.5-5.0) g/dL Procalcitonin (0.02-0.09) ng/mL 10/09/23 Range/Units 08:13 WBC (3.8-10.6) k/uL RBC (4.30-5.90) m/uL Hgb (13.0-17.5) gm/dL Hct (39.0-53.0) % Neutrophils # (1.3-7.7) k/uL Lymphocytes # (1.0-4.8) k/uL Monocytes # (0-1.0) k/uL Sodium 136 L (137-145) mmol/L Chloride 115 H (98-107) mmol/L Carbon Dioxide 18 L (22-30) mmol/L BUN 35 H (9-20) mg/dL Glucose 145 H (74-99) mg/dL POC Glucose (mg/dL) (70-110) mg/dL Calcium 7.2 L (8.4-10.2) mg/dL AST 12 L (17-59) U/L Total Protein 4.0 L (6.3-8.2) g/dL Albumin 1.9 L (3.5-5.0) g/dL Procalcitonin (0.02-0.09) ng/mL Microbiology - Last 24 Hours (Table) 10/04/23 14:30 Blood Culture - Preliminary Blood Assessment and Plan (1) Leukocytosis Current Visit: Yes Status: Acute Code(s): D72.829 - ELEVATED WHITE BLOOD CELL COUNT, UNSPECIFIED SNOMED Code(s): 208147029 (2) C. difficile colitis Current Visit: Yes Status: Acute Code(s): A04.72 - ENTEROCOLITIS D/T NNEKA STRIDIUM DIFFICILE, NOT SPCF RECUR SNOMED Code(s): 180287931 Plan: This is a telehealth visit 1patient presented to the hospital with sepsis in this patient who did have hypotension tachycardia low-grade fever and elevated white count medically clear for SIRS/sepsis source is severe C. difficile colitis failing outpatient treatment 2-patient did have persistent diarrhea hence antibiotic was switched over to Dificid to continue 3-patient also have left BKA stump wound does not look infected continue with local wound care per the wound care Dictation was produced using [employer] dictation software. please excuse any grammatical, word or spelling errors. Time with Patient: Less than 30
--- NOTE | 2023-10-11 15:53 | P.PN ---
Subjective Progress Note Date: 10/10/23 Principal diagnosis: Reason for follow-up is C. 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 difficile colitis. On today's evaluation that is 10/10/2023, Patient is afebrile this morning and denies any chills, patient mention breathing comfortably and is currently on room air, patient denies any chest pain occasional cough patient denies any abdominal pain no nausea no vomiting and diarrhea has slowed down. Patient white count is down to 14.7, creatinine is 1.20 Objective - Vital Signs Vital signs: Vital Signs Temp 98.2 F 10/10/23 20:00 Pulse 80 10/10/23 20:00 Resp 16 10/10/23 20:00 BP 118/58 10/10/23 20:00 Pulse Ox 100 10/10/23 20:00 FiO2 40 10/08/23 00:00 Intake & Output 10/10/23 10/10/23 10/11/23 06:59 18:59 06:59 Intake Total 540 858 Output Total 800 Balance -260 858 Intake: Oral 540 858 Output: Urine 800 Other: Voiding Method Indwelling Catheter Indwelling Catheter Indwelling Catheter # Bowel Movements 1 1 ABP, PAP, CO, CI - Last Documented Arterial Blood Pressure 151/81 - Labs CBC & Chem 7: 10/11/23 08:26 10/11/23 08:26 Labs: Abnormal Lab Results - Last 24 Hours (Table) 10/10/23 10/10/23 10/10/23 Range/Units 06:07 09:12 09:12 WBC 14.7 H (3.8-10.6) k/uL RBC 3.23 L (4.30-5.90) m/uL Hgb 9.7 L (13.0-17.5) gm/dL Hct 31.9 L (39.0-53.0) % MCHC 30.5 L (31.0-37.0) g/dL Neutrophils # 12.2 H (1.3-7.7) k/uL Lymphocytes # 0.9 L (1.0-4.8) k/uL Monocytes # 1.3 H (0-1.0) k/uL Sodium 136 L (137-145) mmol/L Chloride 116 H (98-107) mmol/L Carbon Dioxide 15 L (22-30) mmol/L BUN 30 H (9-20) mg/dL Glucose 138 H (74-99) mg/dL POC Glucose (mg/dL) 157 H (70-110) mg/dL Calcium 7.1 L (8.4-10.2) mg/dL AST 12 L (17-59) U/L Total Protein 3.9 L (6.3-8.2) g/dL Albumin 1.8 L (3.5-5.0) g/dL 10/10/23 10/10/23 10/10/23 Range/Units 11:49 16:24 20:53 WBC (3.8-10.6) k/uL RBC (4.30-5.90) m/uL Hgb (13.0-17.5) gm/dL Hct (39.0-53.0) % MCHC (31.0-37.0) g/dL Neutrophils # (1.3-7.7) k/uL Lymphocytes # (1.0-4.8) k/uL Monocytes # (0-1.0) k/uL Sodium (137-145) mmol/L Chloride (98-107) mmol/L Carbon Dioxide (22-30) mmol/L BUN (9-20) mg/dL Glucose (74-99) mg/dL POC Glucose (mg/dL) 199 H 317 H 253 H (70-110) mg/dL Calcium (8.4-10.2) mg/dL AST (17-59) U/L Total Protein (6.3-8.2) g/dL Albumin (3.5-5.0) g/dL Microbiology - Last 24 Hours (Table) 10/04/23 14:30 Blood Culture - Final Blood 10/04/23 14:45 Blood Culture - Final Blood Assessment and Plan (1) Leukocytosis Current Visit: Yes Status: Acute Code(s): D72.829 - ELEVATED WHITE BLOOD CELL COUNT, UNSPECIFIED SNOMED Code(s): 216718164 (2) C. difficile colitis Current Visit: Yes Status: Acute Code(s): A04.72 - ENTEROCOLITIS D/T CLOSTRIDIUM DIFFICILE, NOT SPCF RECUR SNOMED Code(s): 709871424 Plan: This is a telehealth visit 1patient presented to the hospital with sepsis in this patient who did have hypotension tachycardia low-grade fever and elevated white count medically clear for SIRS/sepsis source is severe C. difficile colitis failing outpatient treatment 2-patient also have left BKA stump wound does not look infected continue with local wound care per the wound care 3-patient did have some improvement in diarrhea continue with the Dificid Dictation was produced using [employer] dictation software. please excuse any grammatical, word or spelling errors. Time with Patient: Less than 30
--- NOTE | 2023-10-11 15:54 | P.PN ---
Subjective Progress Note Date: 10/11/23 Principal diagnosis: Reason for follow-up is C. 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 difficile colitis. On today's evaluation that is 10/11/2023,the patient denies any fever or any chills, patient is breathing comfortably on room air, the patient denies chest pain shortness of breath and no significant cough, patient denies abdominal pain, no nausea vomiting did have 1 loose stool as reported by the nursing staff this morning Patient white count is down to 13.5, creatinine 1.04 Objective - Vital Signs Vital signs: Vital Signs Temp 98.9 F 10/11/23 08:08 Pulse 88 10/11/23 08:08 Resp 18 10/11/23 08:08 BP 104/64 10/11/23 08:08 Pulse Ox 96 10/11/23 08:08 FiO2 40 10/08/23 00:00 Intake & Output 10/10/23 10/11/23 10/11/23 18:59 06:59 18:59 Intake Total 858 Output Total 475 800 Balance 858 -475 -800 Intake: Oral 858 Output: Urine 475 800 Other: Voiding Method Indwelling Catheter Indwelling Catheter # Bowel Movements 1 4 ABP, PAP, CO, CI - Last Documented Arterial Blood Pressure 151/81 - Exam Middle-age male lying in bed in no distress Respiratory system unlabored breathing decreased breath sound the base Heart S1-S2 regular Abdominal soft no tenderness Extremities left BKA stump wound is currently dressed no drainage - Labs CBC & Chem 7: 10/11/23 08:26 10/11/23 08:26 Labs: Abnormal Lab Results - Last 24 Hours (Table) 10/10/23 10/10/23 10/11/23 Range/Units 16:24 20:53 06:15 WBC (3.8-10.6) k/uL RBC (4.30-5.90) m/uL Hgb (13.0-17.5) gm/dL Hct (39.0-53.0) % MCHC (31.0-37.0) g/dL RDW (11.5-15.5) % Neutrophils # (1.3-7.7) k/uL Sodium (137-145) mmol/L Chloride (98-107) mmol/L Carbon Dioxide (22-30) mmol/L BUN (9-20) mg/dL Glucose (74-99) mg/dL POC Glucose (mg/dL) 317 H 253 H 141 H (70-110) mg/dL Calcium (8.4-10.2) mg/dL Total Bilirubin (0.2-1.3) mg/dL AST (17-59) U/L Total Protein (6.3-8.2) g/dL Albumin (3.5-5.0) g/dL 10/11/23 10/11/23 10/11/23 Range/Units 08:26 08:26 12:26 WBC 13.5 H (3.8-10.6) k/uL RBC 3.29 L (4.30-5.90) m/uL Hgb 9.6 L (13.0-17.5) gm/dL Hct 32.4 L (39.0-53.0) % MCHC 29.7 L (31.0-37.0) g/dL RDW 15.7 H (11.5-15.5) % Neutrophils # 11.0 H (1.3-7.7) k/uL Sodium 136 L (137-145) mmol/L Chloride 117 H (98-107) mmol/L Carbon Dioxide 15 L (22-30) mmol/L BUN 23 H (9-20) mg/dL Glucose 140 H (74-99) mg/dL POC Glucose (mg/dL) 244 H (70-110) mg/dL Calcium 7.5 L (8.4-10.2) mg/dL Total Bilirubin 0.1 L (0.2-1.3) mg/dL AST 12 L (17-59) U/L Total Protein 4.0 L (6.3-8.2) g/dL Albumin 1.8 L (3.5-5.0) g/dL Microbiology - Last 24 Hours (Table) 10/04/23 14:30 Blood Culture - Final Blood Assessment and Plan (1) Leukocytosis Current Visit: Yes Status: Acute Code(s): D72.829 - ELEVATED WHITE BLOOD CELL COUNT, UNSPECIFIED SNOMED Code(s): 004651774 (2) C. difficile colitis Current Visit: Yes Status: Acute Code(s): A04.72 - ENTEROCOLITIS D/T CLOSTRIDIUM DIFFICILE, NOT SPCF RECUR SNOMED Code(s): 449960519 Plan: This is a telehealth visit 1patient presented to the hospital with sepsis in this patient who did have hypotension tachycardia low-grade fever and elevated white count medically clear for SIRS/sepsis source is severe C. difficile colitis failing outpatient treatment 2-patient also have left BKA stump wound does not look infected continue with local wound care per the wound care 3-patient white count is trending down and diarrhea has slowed down as reported by the nursing staff to continue with the Dificid Dictation was produced using [employer] dictation software. please excuse any grammatical, word or spelling errors. Time with Patient: Less than 30
[2023-10-11] MEDS: FUROSEMIDE 10 MG/ML 4 ML VIAL IV STA (16:36)
[2023-10-11 17:24] LABS: Glucose,Whole Blood 275 mg/dL (70-110)
--- NOTE | 2023-10-11 19:52 | P.PN ---
Subjective Progress Note Date: 10/11/23 Patient is seen for follow-up for acute kidney injury. Status post IV fluids. Being treated for C. diff colitis. Still having diarrhea and abdominal distention with pain Patient is awake. Alert oriented x 3 Examination of the heart S1 and S2 Examination the lungs bilateral breath sounds are heard Abdomen is soft nontender Examination lower extremities shows 1+ edema, left BKA Objective - Vital Signs Vital signs: Vital Signs Temp 98.9 F 10/11/23 08:08 Pulse 88 10/11/23 08:08 Resp 18 10/11/23 08:08 BP 104/64 10/11/23 08:08 Pulse Ox 96 10/11/23 08:08 FiO2 40 10/08/23 00:00 Intake & Output 10/10/23 10/11/23 10/11/23 18:59 06:59 18:59 Intake Total 858 Output Total 475 800 Balance 858 -475 -800 Intake: Oral 858 Output: Urine 475 800 Other: Voiding Method Indwelling Catheter Indwelling Catheter # Bowel Movements 1 4 ABP, PAP, CO, CI - Last Documented Arterial Blood Pressure 151/81 - Labs CBC & Chem 7: 10/11/23 08:26 10/11/23 08:26 Labs: Abnormal Lab Results - Last 24 Hours (Table) 10/10/23 10/10/23 10/11/23 Range/Units 16:24 20:53 06:15 WBC (3.8-10.6) k/uL RBC (4.30-5.90) m/uL Hgb (13.0-17.5) gm/dL Hct (39.0-53.0) % MCHC (31.0-37.0) g/dL RDW (11.5-15.5) % Neutrophils # (1.3-7.7) k/uL Sodium (137-145) mmol/L Chloride (98-107) mmol/L Carbon Dioxide (22-30) mmol/L BUN (9-20) mg/dL Glucose (74-99) mg/dL POC Glucose (mg/dL) 317 H 253 H 141 H (70-110) mg/dL Calcium (8.4-10.2) mg/dL Total Bilirubin (0.2-1.3) mg/dL AST (17-59) U/L Total Protein (6.3-8.2) g/dL Albumin (3.5-5.0) g/dL 10/11/23 10/11/23 10/11/23 Range/Units 08:26 08:26 12:26 WBC 13.5 H (3.8-10.6) k/uL RBC 3.29 L (4.30-5.90) m/uL Hgb 9.6 L (13.0-17.5) gm/dL Hct 32.4 L (39.0-53.0) % MCHC 29.7 L (31.0-37.0) g/dL RDW 15.7 H (11.5-15.5) % Neutrophils # 11.0 H (1.3-7.7) k/uL Sodium 136 L (137-145) mmol/L Chloride 117 H (98-107) mmol/L Carbon Dioxide 15 L (22-30) mmol/L BUN 23 H (9-20) mg/dL Glucose 140 H (74-99) mg/dL POC Glucose (mg/dL) 244 H (70-110) mg/dL Calcium 7.5 L (8.4-10.2) mg/dL Total Bilirubin 0.1 L (0.2-1.3) mg/dL AST 12 L (17-59) U/L Total Protein 4.0 L (6.3-8.2) g/dL Albumin 1.8 L (3.5-5.0) g/dL Microbiology - Last 24 Hours (Table) 10/04/23 14:30 Blood Culture - Final Blood Assessment and Plan Assessment: 1. Acute kidney injury secondary to ATN secondary to hypotension and hypovolemia. Creatinine 4.38 dated October 01, 2023. It is 1.2 today. Baseline creatinine near 1. No hydronephrosis noted on CT. Restarted on Lasix due to lower extremity edema. 2. C. difficile colitis maintained on oral vancomycin. 3. Metabolic acidosis secondary to acute kidney injury and GI losses. 4. Septic shock, s/p Levophed. Plan: Sodium bicarb to 3 times daily. Continue PO Lasix. Edema is mostly related to significant hypoalbuminemia with underlying colitis. Chest x-ray was clear on 10/09/2023. Repeat labs in a.m. Would likely benefit from paracentesis.
--- NOTE | 2023-10-11 20:17 | P.PN ---
Subjective Progress Note Date: 10/11/23 52-year-old male who is seen in the emergency department, October 04, 2023. The patient came in with weakness, mental status changes, and suspected sepsis. The patient recently had a left below the knee amputation, done by Dr. Domínguez, on September 02. 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 The patient was discharged after number days to a local [facility]. He came back into the emergency department as mentioned on October 03. He was being treated for a C. difficile infection. He apparently was noted to be febrile, lethargic, and weak, with a low blood pressure. For that reason, he was sent in to the emergency department, and brought in by EMS. I was called by the emergency room physician, who did fluid resuscitation initially, but then started him on some norepinephrine. For that reason, the patient necessitated an admission to the intensive care unit. Currently he is on 2 L of oxygen. He is given D5W with 3 ampoules of sodium bicarb and at 125 cc an hour. His norepinephrine dose is 4 mcg/min. He is currently on IV Flagyl, and oral vancomycin for his C. difficile infection. White count is 21.9, hemoglobin 10.2, hematocrit 32.9, platelet count 199,000. Sodium 139, potassium 4.6, chlorides 119, CO2 9, BUN 99, creatinine 2.96. Glucose is 192. Calcium 8.8, magnesium 2.3. He did test positive here for C. difficile. Chest x-ray is read as normal here. CT of the abdomen and pelvis shows circumferential thickening of the colon throughout its entire length, most compatible with colitis. On today's evaluation of 10/06/2023, the patient is being seen for a follow-up. The patient was moved to the intensive care unit because of ongoing diarrhea and the patient also developed 2 episodes of coffee-ground emesis overnight and the patient is going to undergo an EGD today. The patient is currently on IV Protonix. The patient is NPO. The patient is eating combination IV Flagyl and oral vancomycin regarding acute C. difficile colitis. The patient is currently off pressors. White cell count remains elevated. Remains somewhat encephalopathic although there is improvement in his mentation over the past 12 hours. The white cell count is at 24 with a hemoglobin 9.9 and a platelet count of 198. Sodium is at 140, potassium is 3.8, serum bicarb is improved and is currently up to 21 with a BUN of 80 and a creatinine of 1.9 and the patient is improving in terms of his renal function. The HbA1c is at 7.8. LFTs are normal. Troponins are negative. Most recent blood sugar is 306. The patient is on bicarb infusion which is running at a rate of 125 cc an hour. Serum bicarb is improved. The patient is on Levemir insulin 30 units in the evening and 10 units in the morning along with a NovoLog sliding scale coverage. The patient is currently on oral bicarb supplements. No significant abdominal pain. He does have a large anterior abdominal wall ventral hernia. On 10/07/2023, the patient is being seen for a follow-up. The patient continues to have episodes of diarrhea and the patient remains on a combination of oral vancomycin 500 mg p.o. 4 times daily and IV metronidazole. The patient's abdomen is mildly tender. The white cell count is still elevated at 30.5 with a hemoglobin 10.3 and a platelet count of 65. Creatinine is improving is currently down to 1.64 with a BUN of 78 and a sodium levels at 139. The patient remains on normal saline at a rate of 100 cc an hour. Overnight, the patient had to be placed on pressors and the patient is currently on norepinephrine at 0.05 mcg/kg/min. The patient had a positive fluid balance of 1.8 L over the past 24 hours. The patient underwent an EGD yesterday and the patient was found to have gastritis and biopsies were taken. The patient remains on IV Protonix. Diet will be provided today. Rest of medications remain unchanged. He remains on Levemir 30 units in the evening and 10 units in the morning along with NovoLog 5 units with meals. No other significant events overnight. Blood cultures been negative. General surgery is on the case. 10/08/2023, the patient continues to have liquidy diarrhea. The patient also has some flatulence. Remains on IV Flagyl and oral vancomycin. He is on room air oxygen. White cell count is improving and currently down to 20.5 with a hemoglobin 9.8 and a platelet count of 223. Creatinine is also improving and is down to 1.34 with a BUN of 51. Sodium level is at 137, serum bicarb is at 20. Blood sugars at 282. The patient remains on DuoNeb. Furthermore, the patient was taken off the oral vancomycin the patient was switched to Dificid. Rest of the medication remain unchanged. The patient remains on low-dose pressors and the patient is still requiring low-dose norepinephrine which is running 0.02 mcg/kg/min. IV fluids are in the form of normal saline at rate of 100 cc an hour. This is a medication remains unchanged. He remains on Levemir insulin 30 units at nighttime and 10 units in the morning in addition to sliding scale coverage. He is on Lasix 40 mg p.o. daily. 10/09/2023, I am seeing the patient for a follow-up. This patient is on oral Dificid and IV Flagyl. He was transferred out of the intensive care unit yesterday. He remains hemodynamically stable. White cell count continues to improve and is currently down to 17 with a hemoglobin 9.5. BUN 35 with a creatinine of 1.08 and a sodium levels at 136. Afebrile. Hemodynamically stable. No other significant events overnight. Rest of medications remain unchanged. He remains on IV fluid normal saline at rate of 100 cc an hour. The serum bicarb is currently at 18. On today's evaluation of 10/10/2023, I am seeing the patient for a follow-up. The patient is doing well. No active diarrhea. No nausea vomiting or abdominal pain. Clinically stable. Hemodynamically stable. Serum bicarb is currently at 15 and this was attributed to metabolic acidosis. BUN 30 creatinine 1.2 and sodium is at 136. White cell count is improved and the patient's white cell count is down to 14.7 with a hemoglobin of 9.7. The patient remains on IV Flag yl and oral Dificid for C. difficile colitis. The patient is also receiving bicarb tablets 650 mg p.o. twice a day. The patient remains on room air oxygen. He was able to sit up in a chair today. Calm and comfortable. On today's evaluation of 10/11/2023, patient is stable. No active diarrhea. Hemodynamically stable. White cell count is down to 17.5 with a hemoglobin 9.6 and the patient remains on Dificid. The patient remains on room air oxygen. No nausea but no vomiting. No abdominal pain. No chest pain. Rest of the medication shmuel unchanged and the patient remains on oral bicarb supplements. Serum bicarb is at 15 and a sodium levels at 136 with potassium level of 4.1. No other significant events over the night. The patient remains on Lasix 40 mg p.o. daily. Insulin doses remain unchanged. Objective - Vital Signs Vital signs: Vital Signs Temp 98.9 F 10/11/23 08:08 Pulse 88 10/11/23 08:08 Resp 18 10/11/23 08:08 BP 104/64 10/11/23 08:08 Pulse Ox 96 10/11/23 08:08 FiO2 40 10/08/23 00:00 Intake & Output 10/10/23 10/11/23 10/11/23 18:59 06:59 18:59 Intake Total 858 Output Total 475 Balance 858 -475 Intake: Oral 858 Output: Urine 475 Other: Voiding Method Indwelling Catheter Indwelling Catheter # Bowel Movements 1 4 ABP, PAP, CO, CI - Last Documented Arterial Blood Pressure 151/81 - Exam No acute distress, oriented 3. Currently on nasal O2 at 2 L. No respiratory distress. HEENT examination is grossly unremarkable. Neck supple. Full range of motion. No adenopathy thyromegaly or neck vein distention. Cardiovascular examination reveals regular rhythm rate. S1-S2 normal. No S3 or S4. No discernible murmur noted. Heart rate is 100 bpm. Lungs reveal clear breath sounds. Breath sounds are equal bilaterally. No adventitious lung sounds including wheezes rhonchi or crackles. Saturations are 98%. Abdomen soft with bowel sounds. No masses or tenderness. The patient has large anterior abdominal wall hernias and scars of previous surgeries. The hernia is reducible. No direct tenderness. No rebound tenderness. No guarding. Extremities are intact. No cyanosis clubbing or edema. The patient has a below-knee amputation of the left lower extremity. The surgical stump is healing nicely. There is no active drainage. No erythema. No abscess formation. Skin is without rash or lesion. Neurologic examination is brief but nonfocal. - Labs CBC & Chem 7: 10/11/23 08:26 10/11/23 08:26 Labs: Abnormal Lab Results - Last 24 Hours (Table) 10/10/23 10/10/23 10/11/23 Range/Units 16:24 20:53 06:15 WBC (3.8-10.6) k/uL RBC (4.30-5.90) m/uL Hgb (13.0-17.5) gm/dL Hct (39.0-53.0) % MCHC (31.0-37.0) g/dL RDW (11.5-15.5) % Neutrophils # (1.3-7.7) k/uL Sodium (137-145) mmol/L Chloride (98-107) mmol/L Carbon Dioxide (22-30) mmol/L BUN (9-20) mg/dL Glucose (74-99) mg/dL POC Glucose (mg/dL) 317 H 253 H 141 H (70-110) mg/dL Calcium (8.4-10.2) mg/dL Total Bilirubin (0.2-1.3) mg/dL AST (17-59) U/L Total Protein (6.3-8.2) g/dL Albumin (3.5-5.0) g/dL 10/11/23 10/11/23 Range/Units 08:26 08:26 WBC 13.5 H (3.8-10.6) k/uL RBC 3.29 L (4.30-5.90) m/uL Hgb 9.6 L (13.0-17.5) gm/dL Hct 32.4 L (39.0-53.0) % MCHC 29.7 L (31.0-37.0) g/dL RDW 15.7 H (11.5-15.5) % Neutrophils # 11.0 H (1.3-7.7) k/uL Sodium 136 L (137-145) mmol/L Chloride 117 H (98-107) mmol/L Carbon Dioxide 15 L (22-30) mmol/L BUN 23 H (9-20) mg/dL Glucose 140 H (74-99) mg/dL POC Glucose (mg/dL) (70-110) mg/dL Calcium 7.5 L (8.4-10.2) mg/dL Total Bilirubin 0.1 L (0.2-1.3) mg/dL AST 12 L (17-59) U/L Total Protein 4.0 L (6.3-8.2) g/dL Albumin 1.8 L (3.5-5.0) g/dL Microbiology - Last 24 Hours (Table) 10/04/23 14:30 Blood Culture - Final Blood Assessment and Plan Plan: Acute C. difficile colitis, currently on a combination of Flagyl and oral Dificid, still having diarrhea and white cell is improving and the patient is currently on no pressors, clinically improving and the patient's white cell count is also improving, currently on Dificid. The patient is also on IV Flagyl. Sepsis/hypotension, secondary to severe diarrhea, from C. difficile colitis, improved and he is currently on IV fluids , off pressors Acute mental status changes, likely on the basis of septic encephalopathy, improved None anion gap metabolic acidosis, serum bicarb replacement orally Coffee-ground emesis x 2 and the patient, post EGD that revealed gastritis and the patient is currently on IV Protonix Acute leukocytosis, secondary to C. difficile colitis, improving Acute kidney injury, Improving and the patient's creatinine is slowly improving and the patient remains on IV fluids, improving Diabetes mellitus, currently on L Levemir insulin 30 units at bedtime and 10 units in the morning along with NovoLog 5 units with meals and sliding scale coverage. He is also on Actos 30 mg p.o. daily. Recent left BKA, September 03, 2023. History of hypertension. History of hyperlipidemia. Nonhealing ulcer, left lower extremity, with subsequent left BKA. Prior history of methicillin-resistant Staph aureus infection, and Proteus mirabilis bacteremia and the patient completed a course of Rocephin and vancomycin on outpatient basis at the [facility]. Large anterior abdominal wall hernia Plan: White cell count is improving Clinically stable The patient will be kept on oral Dificid and IV Flagyl. Monitor diarrhea, currently inactive and stable Advance diet EGD was done Continue IV fluids Continue oral bicarb, monitor bicarb level Lantus insulin for blood sugar control Surgical wound site over the left lower extremity BKA is dry clean and intact. Renal function is improving Monitor mental status, back to baseline
[2023-10-11 21:22] LABS: Glucose,Whole Blood 233 mg/dL (70-110)
[2023-10-12 05:22] LABS: Glucose,Whole Blood 176 mg/dL (70-110)
--- NOTE | 2023-10-12 10:30 | P.GSCN ---
History of Present Illness Consult date: 10/12/23 History of present illness: D2-year-old gentleman the hospital for over a week with medical problems including diarrhea. He is status post a leg amputation. He has poor health a. We've been asked to see for scrotal swelling. This is new according the patient to. His history is questionable however. He does have an indwelling catheter. He has marked anasarca. His total protein 4 and albumin 1.8.he had a computed tomography scan and subsequent abdominal ultrasound both of which is show ascites. Review of Systems ROS unobtainable: due to mental status Past Medical History Past Medical History: Diabetes Mellitus, Hyperlipidemia, Hypertension Additional Past Medical History / Comment(s): STATES SORE ON THE BOTTOM OF LEFT FOOT. 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 Past Psychological History: Anxiety Smoking Status: Former smoker Past Alcohol Use History: Occasional Past Drug Use History: None Reported - Past Family History Mother Family Medical History: Diabetes Mellitus Father Family Medical History: Cancer Medications and Allergies Home Medications Medication Instructions Recorded Confirmed Type HYDROcodone/APAP 7.5-325MG [[place] 1 tab PO Q4H PRN 11/09/21 10/04/23 History 7.5-325] Simvastatin [Zocor] 20 mg PO HS 11/09/21 10/04/23 History sitaGLIPtin [Januvia] 100 mg PO DAILY 11/09/21 10/04/23 History Famotidine 20 mg PO HS 07/01/22 10/04/23 History Sevelamer [Renvela] 800 mg PO W/SUPPER 07/01/22 10/04/23 History Ergocalciferol [Vitamin D2 (1250 1,250 mcg PO TU 10/01/22 10/04/23 History Mcg = 98500 Iu)] Furosemide [Lasix] 40 mg PO DAILY 05/14/23 10/04/23 History Multivitamins, Thera [Multivitamin 1 tab PO DAILY 05/14/23 10/04/23 History (formulary)] Pregabalin [Lyrica] 200 mg PO TID 05/14/23 10/04/23 History ALPRAZolam [Xanax] 0.25 mg PO Q6HR PRN tab 09/05/23 10/04/23 Rx Metoprolol Tartrate [Lopressor] 25 mg PO BID tab 09/05/23 10/04/23 Rx Pioglitazone [Actos] 30 mg PO DAILY tab 09/05/23 10/04/23 Rx Tamsulosin [Flomax] 0.4 mg PO DAILY cap 09/05/23 10/04/23 Rx Cholestyramine (with Sugar) 4 gm PO HS 10/04/23 10/04/23 History [Questran] Ferrous Sulfate [Feosol] 325 mg PO DAILY@0800 10/04/23 10/04/23 History HYDROcodone/APAP 10-325MG [[place] 1 tab PO Q6HR PRN 10/04/23 10/04/23 History 10-325] INSULIN ASPART (NovoLOG) [NovoLOG 15 unit SQ AC-TID 10/04/23 10/04/23 History (formulary)] Insulin Detemir [Levemir Flexpen] 10 unit SQ DAILY 10/04/23 10/04/23 History Insulin Detemir [Levemir Flexpen] 30 units SQ HS 10/04/23 10/04/23 History Ipratropium-Albuterol Nebulize 3 ml INHALATION RT-Q6H PRN 10/04/23 10/04/23 History [Duoneb 0.5 mg-3 mg/3 ml Soln] L.acidoph,Paracasei, B.lactis 1 cap PO BID 10/04/23 10/04/23 History [Probiotic] Loperamide HCl [Imodium A-D] 2 - 4 mg PO QID PRN 10/04/23 10/04/23 History Naloxone HCl [Narcan] 4 mg NASAL DIRECTED PRN 10/04/23 10/04/23 History Ondansetron [Zofran] 4 mg PO Q8H PRN 10/04/23 10/04/23 History Psyllium Husk (with Sugar) 1 tbsp PO HS 10/04/23 10/04/23 History [Metamucil Powder] Sodium Bicarbonate Tab 650 mg PO BID@0800,1600 10/04/23 10/04/23 History metroNIDAZOLE [Flagyl] 500 mg PO TID@0800,1200,1800 10/04/23 10/04/23 History Allergies Allergy/AdvReac Type Severity Reaction Status Date / Time No Known Allergies Allergy Verified 10/04/23 15:00 Surgical - Exam Vital Signs Temp Pulse Resp BP Pulse Ox 99.3 F 100 18 89/46 94 L 10/04/23 14:13 10/04/23 14:13 10/04/23 14:13 10/04/23 14:13 10/04/23 14:13 - General well developed, well nourished, no distress - Eyes normal ocular movement, no icteric - ENT no hearing loss, no congestion - Neck no masses, trachea midline - Respiratory normal respiratory effort, clear to auscultation - Abdomen Abdomen: soft, non tender, no guarding, no rigid, no rebound - Genitourinary marked penile and scrotal edema, indwelling catheter. No evidence of erythema crepitus or fluctuance. Notable lower extremity edema - Integumentary no rash, no abnormal pigmentation - Neurologic no disoriented, no combative - Psychiatric oriented to time, oriented to person, oriented to place, speech is normal, memory intact Results - Labs 10/11/23 08:26 10/11/23 08:26 Abnormal Lab Results - Last 24 Hours (Table) 10/11/23 10/11/23 10/11/23 Range/Units 08:26 08:26 12:26 WBC 13.5 H (3.8-10.6) k/uL RBC 3.29 L (4.30-5.90) m/uL Hgb 9.6 L (13.0-17.5) gm/dL Hct 32.4 L (39.0-53.0) % MCHC 29.7 L (31.0-37.0) g/dL RDW 15.7 H (11.5-15.5) % Neutrophils # 11.0 H (1.3-7.7) k/uL Sodium 136 L (137-145) mmol/L Chloride 117 H (98-107) mmol/L Carbon Dioxide 15 L (22-30) mmol/L BUN 23 H (9-20) mg/dL Glucose 140 H (74-99) mg/dL POC Glucose (mg/dL) 244 H (70-110) mg/dL Calcium 7.5 L (8.4-10.2) mg/dL Total Bilirubin 0.1 L (0.2-1.3) mg/dL AST 12 L (17-59) U/L Total Protein 4.0 L (6.3-8.2) g/dL Albumin 1.8 L (3.5-5.0) g/dL 10/11/23 10/11/23 10/12/23 Range/Units 17:22 21:10 05:21 WBC (3.8-10.6) k/uL RBC (4.30-5.90) m/uL Hgb (13.0-17.5) gm/dL Hct (39.0-53.0) % MCHC (31.0-37.0) g/dL RDW (11.5-15.5) % Neutrophils # (1.3-7.7) k/uL Sodium (137-145) mmol/L Chloride (98-107) mmol/L Carbon Dioxide (22-30) mmol/L BUN (9-20) mg/dL Glucose (74-99) mg/dL POC Glucose (mg/dL) 275 H 233 H 176 H (70-110) mg/dL Calcium (8.4-10.2) mg/dL Total Bilirubin (0.2-1.3) mg/dL AST (17-59) U/L Total Protein (6.3-8.2) g/dL Albumin (3.5-5.0) g/dL Diabetes panel 10/11/23 Range/Units 08:26 Sodium 136 L (137-145) mmol/L Potassium 4.1 (3.5-5.1) mmol/L Chloride 117 H (98-107) mmol/L Carbon Dioxide 15 L (22-30) mmol/L BUN 23 H (9-20) mg/dL Creatinine 1.04 (0.66-1.25) mg/dL Glucose 140 H (74-99) mg/dL Calcium 7.5 L (8.4-10.2) mg/dL AST 12 L (17-59) U/L ALT <6 (4-49) U/L Alkaline Phosphatase 51 (38-126) U/L Total Protein 4.0 L (6.3-8.2) g/dL Albumin 1.8 L (3.5-5.0) g/dL Calcium panel 10/11/23 Range/Units 08:26 Calcium 7.5 L (8.4-10.2) mg/dL Albumin 1.8 L (3.5-5.0) g/dL Pituitary panel 10/11/23 Range/Units 08:26 Sodium 136 L (137-145) mmol/L Potassium 4.1 (3.5-5.1) mmol/L Chloride 117 H (98-107) mmol/L Carbon Dioxide 15 L (22-30) mmol/L BUN 23 H (9-20) mg/dL Creatinine 1.04 (0.66-1.25) mg/dL Glucose 140 H (74-99) mg/dL Calcium 7.5 L (8.4-10.2) mg/dL Adrenal panel 10/11/23 Range/Units 08:26 Sodium 136 L (137-145) mmol/L Potassium 4.1 (3.5-5.1) mmol/L Chloride 117 H (98-107) mmol/L Carbon Dioxide 15 L (22-30) mmol/L BUN 23 H (9-20) mg/dL Creatinine 1.04 (0.66-1.25) mg/dL Glucose 140 H (74-99) mg/dL Calcium 7.5 L (8.4-10.2) mg/dL Total Bilirubin 0.1 L (0.2-1.3) mg/dL AST 12 L (17-59) U/L ALT <6 (4-49) U/L Alkaline Phosphatase 51 (38-126) U/L Total Protein 4.0 L (6.3-8.2) g/dL Albumin 1.8 L (3.5-5.0) g/dL Assessment and Plan Assessment: impression: Scrotal edema secondary to anasarca (low total protein and albumin) and ascites. Multiple medical issues Recommendations: Other than scrotal elevationnothing further is recommended from a urologic standpoint as this is not a urologic issue to medical issues.
[2023-10-12 11:54] LABS: Glucose,Whole Blood 194 mg/dL (70-110)
--- NOTE | 2023-10-12 12:31 | P.PN ---
Subjective Progress Note Date: 10/12/23 Patient is seen for follow-up for acute kidney injury. Status post IV fluids. Being treated for C. diff colitis. Still having diarrhea. Patient is awake. Alert oriented x 3 Examination of the heart S1 and S2 Examination the lungs bilateral breath sounds are heard Abdomen is soft nontender Examination lower extremities shows 1+ edema, left BKA Objective - Vital Signs Vital signs: Vital Signs Temp 98.4 F 10/12/23 07:09 Pulse 83 10/12/23 07:09 Resp 17 10/12/23 07:09 BP 113/67 10/12/23 07:09 Pulse Ox 98 10/12/23 07:09 FiO2 40 10/08/23 00:00 Intake & Output 10/11/23 10/12/23 10/12/23 18:59 06:59 18:59 Output Total 1520 1500 Balance -1520 -1500 Output: Urine 1520 1500 Other: Voiding Method Indwelling Catheter Indwelling Catheter # Bowel Movements 5 4 1 ABP, PAP, CO, CI - Last Documented Arterial Blood Pressure 151/81 - Labs CBC & Chem 7: 10/11/23 08:26 10/11/23 08:26 Labs: Abnormal Lab Results - Last 24 Hours (Table) 10/11/23 10/11/23 10/11/23 Range/Units 08:26 12:26 17:22 Sodium 136 L (137-145) mmol/L Chloride 117 H (98-107) mmol/L Carbon Dioxide 15 L (22-30) mmol/L BUN 23 H (9-20) mg/dL Glucose 140 H (74-99) mg/dL POC Glucose (mg/dL) 244 H 275 H (70-110) mg/dL Calcium 7.5 L (8.4-10.2) mg/dL Total Bilirubin 0.1 L (0.2-1.3) mg/dL AST 12 L (17-59) U/L Total Protein 4.0 L (6.3-8.2) g/dL Albumin 1.8 L (3.5-5.0) g/dL 10/11/23 10/12/23 Range/Units 21:10 05:21 Sodium (137-145) mmol/L Chloride (98-107) mmol/L Carbon Dioxide (22-30) mmol/L BUN (9-20) mg/dL Glucose (74-99) mg/dL POC Glucose (mg/dL) 233 H 176 H (70-110) mg/dL Calcium (8.4-10.2) mg/dL Total Bilirubin (0.2-1.3) mg/dL AST (17-59) U/L Total Protein (6.3-8.2) g/dL Albumin (3.5-5.0) g/dL Assessment and Plan Assessment: 1. Acute kidney injury secondary to ATN secondary to hypotension and hypovolemia. Creatinine 4.38 dated October 01, 2023. It is 1.2 today. Baseline creatinine near 1. No hydronephrosis noted on CT. Restarted on Lasix due to lower extremity edema. 2. C. difficile colitis maintained on oral vancomycin. 3. Metabolic acidosis secondary to acute kidney injury and GI losses. 4. Septic shock, s/p Levophed. Plan: Sodium bicarb to 3 times daily. Continue PO Lasix. Edema is mostly related to significant hypoalbuminemia with underlying colitis. Chest x-ray was clear on 10/09/2023. Repeat labs in a.m. Would likely benefit from paracentesis.
--- NOTE | 2023-10-12 12:33 | P.PN ---
Subjective Progress Note Date: 10/12/23 CHIEF COMPLAINT: C. difficile HISTORY OF PRESENT ILLNESS: The patient is a 52-year-old male with C. difficile, acute kidney injury, left below the knee amputation and diabetes who had acute anemia during hospitalization. No hematemesis. He reports abdominal distention however stable. He is tolerating liquid diet. Patient is being treated for C. difficile. Domínguez catheter present. He is still having diarrhea. ROS: No reports of nausea and vomiting. No fevers or chills. No new chest pain. PHYSICAL EXAM: VITAL SIGNS: Reviewed CONSTITUTIONAL: Well developed and in no acute distress. EYES: Conjuctivae without sclera icterus. Extraocular movements grossly intact. HEAD, EARS, NOSE, THROAT: Moist buccal mucosa. Head is atraumatic, normocephalic. Hears conversational speech. No nasal drainage. RESPIRATORY: Non-labored respirations and equal bilateral excursions. CARDIOVASCULAR: Palpable 2+ radial pulses. ABDOMEN: Mild abdominal distention. No peritonitis. Minimal lower abdominal pain. MUSCULOSKELETAL: Left below the knee amputation. SKIN: Good skin turgor. Well perfused. NEUROLOGIC: Cranial nerves II through XII grossly intact. No focal or lateralizing signs. PSYCH: Appropriate affect. CLINICAL LABS: Reviewed. WBC trending down 14.7-13.5. ASSESSMENT: 1. C. difficile colitis 2. Acute kidney injury 3. Diabetes type 2 PLAN: 1. He has multiple bowel movements however decreasing from over 10 bowel movements currently down to 4 today. Recommend removing any additional risk of lactose which may aggravate diarrhea. 2. Adjust diet to lactose-free 3. Recommend dietary consult to identify a high-protein diet without excess sugar and lactulose Objective - Vital Signs Vital signs: Vital Signs Temp 98.4 F 10/12/23 07:09 Pulse 83 10/12/23 07:09 Resp 17 10/12/23 07:09 BP 113/67 10/12/23 07:09 Pulse Ox 98 10/12/23 07:09 FiO2 40 10/08/23 00:00 Intake & Output 10/11/23 10/12/23 10/12/23 18:59 06:59 18:59 Output Total 1520 1500 Balance -1520 -1500 Output: Urine 1520 1500 Other: Voiding Method Indwelling Catheter Indwelling Catheter Indwelling Catheter # Bowel Movements 5 4 1 ABP, PAP, CO, CI - Last Documented Arterial Blood Pressure 151/81 - Labs CBC & Chem 7: 10/11/23 08:26 10/11/23 08:26 Labs: Abnormal Lab Results - Last 24 Hours (Table) 10/11/23 10/11/23 10/12/23 Range/Units 17:22 21:10 05:21 POC Glucose (mg/dL) 275 H 233 H 176 H (70-110) mg/dL 10/12/23 Range/Units 11:53 POC Glucose (mg/dL) 194 H (70-110) mg/dL
--- NOTE | 2023-10-12 13:03 | P.PN ---
Subjective Progress Note Date: 10/12/23 52-year-old male who is seen in the emergency department, October 04, 2023. The patient came in with weakness, mental status changes, and suspected sepsis. The patient recently had a left below the knee amputation, done by Dr. Domínguez, on September 02. 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 The patient was discharged after number days to a local snf. He came back into the emergency department as mentioned on October 03. He was being treated for a C. difficile infection. He apparently was noted to be febrile, lethargic, and weak, with a low blood pressure. For that reason, he was sent in to the emergency department, and brought in by EMS. I was called by the emergency room physician, who did fluid resuscitation initially, but then started him on some norepinephrine. For that reason, the patient necessitated an admission to the intensive care unit. Currently he is on 2 L of oxygen. He is given D5W with 3 ampoules of sodium bicarb and at 125 cc an hour. His norepinephrine dose is 4 mcg/min. He is currently on IV Flagyl, and oral vancomycin for his C. difficile infection. White count is 21.9, hemoglobin 10.2, hematocrit 32.9, platelet count 199,000. Sodium 139, potassium 4.6, chlorides 119, CO2 9, BUN 99, creatinine 2.96. Glucose is 192. Calcium 8.8, magnesium 2.3. He did test positive here for C. difficile. Chest x-ray is read as normal here. CT of the abdomen and pelvis shows circumferential thickening of the colon throughout its entire length, most compatible with colitis. On today's evaluation of 10/06/2023, the patient is being seen for a follow-up. The patient was moved to the intensive care unit because of ongoing diarrhea and the patient also developed 2 episodes of coffee-ground emesis overnight and the patient is going to undergo an EGD today. The patient is currently on IV Protonix. The patient is NPO. The patient is eating combination IV Flagyl and oral vancomycin regarding acute C. difficile colitis. The patient is currently off pressors. White cell count remains elevated. Remains somewhat encephalopathic although there is improvement in his mentation over the past 12 hours. The white cell count is at 24 with a hemoglobin 9.9 and a platelet count of 198. Sodium is at 140, potassium is 3.8, serum bicarb is improved and is currently up to 21 with a BUN of 80 and a creatinine of 1.9 and the patient is improving in terms of his renal function. The HbA1c is at 7.8. LFTs are normal. Troponins are negative. Most recent blood sugar is 306. The patient is on bicarb infusion which is running at a rate of 125 cc an hour. Serum bicarb is improved. The patient is on Levemir insulin 30 units in the evening and 10 units in the morning along with a NovoLog sliding scale coverage. The patient is currently on oral bicarb supplements. No significant abdominal pain. He does have a large anterior abdominal wall ventral hernia. On 10/07/2023, the patient is being seen for a follow-up. The patient continues to have episodes of diarrhea and the patient remains on a combination of oral vancomycin 500 mg p.o. 4 times daily and IV metronidazole. The patient's abdomen is mildly tender. The white cell count is still elevated at 30.5 with a hemoglobin 10.3 and a platelet count of 65. Creatinine is improving is currently down to 1.64 with a BUN of 78 and a sodium levels at 139. The patient remains on normal saline at a rate of 100 cc an hour. Overnight, the patient had to be placed on pressors and the patient is currently on norepinephrine at 0.05 mcg/kg/min. The patient had a positive fluid balance of 1.8 L over the past 24 hours. The patient underwent an EGD yesterday and the patient was found to have gastritis and biopsies were taken. The patient remains on IV Protonix. Diet will be provided today. Rest of medications remain unchanged. He remains on Levemir 30 units in the evening and 10 units in the morning along with NovoLog 5 units with meals. No other significant events overnight. Blood cultures been negative. General surgery is on the case. 10/08/2023, the patient continues to have liquidy diarrhea. The patient also has some flatulence. Remains on IV Flagyl and oral vancomycin. He is on room air oxygen. White cell count is improving and currently down to 20.5 with a hemoglobin 9.8 and a platelet count of 223. Creatinine is also improving and is down to 1.34 with a BUN of 51. Sodium level is at 137, serum bicarb is at 20. Blood sugars at 282. The patient remains on DuoNeb. Furthermore, the patient was taken off the oral vancomycin the patient was switched to Dificid. Rest of the medication remain unchanged. The patient remains on low-dose pressors and the patient is still requiring low-dose norepinephrine which is running 0.02 mcg/kg/min. IV fluids are in the form of normal saline at rate of 100 cc an hour. This is a medication remains unchanged. He remains on Levemir insulin 30 units at nighttime and 10 units in the morning in addition to sliding scale coverage. He is on Lasix 40 mg p.o. daily. 10/09/2023, I am seeing the patient for a follow-up. This patient is on oral Dificid and IV Flagyl. He was transferred out of the intensive care unit yesterday. He remains hemodynamically stable. White cell count continues to improve and is currently down to 17 with a hemoglobin 9.5. BUN 35 with a creatinine of 1.08 and a sodium levels at 136. Afebrile. Hemodynamically stable. No other significant events overnight. Rest of medications remain unchanged. He remains on IV fluid normal saline at rate of 100 cc an hour. The serum bicarb is currently at 18. On today's evaluation of 10/10/2023, I am seeing the patient for a follow-up. The patient is doing well. No active diarrhea. No nausea vomiting or abdominal pain. Clinically stable. Hemodynamically stable. Serum bicarb is currently at 15 and this was attributed to metabolic acidosis. BUN 30 creatinine 1.2 and sodium is at 136. White cell count is improved and the patient's white cell count is down to 14.7 with a hemoglobin of 9.7. The patient remains on IV Flag yl and oral Dificid for C. difficile colitis. The patient is also receiving bicarb tablets 650 mg p.o. twice a day. The patient remains on room air oxygen. He was able to sit up in a chair today. Calm and comfortable. On today's evaluation of 10/11/2023, patient is stable. No active diarrhea. Hemodynamically stable. White cell count is down to 17.5 with a hemoglobin 9.6 and the patient remains on Dificid. The patient remains on room air oxygen. No nausea but no vomiting. No abdominal pain. No chest pain. Rest of the medication shmuel unchanged and the patient remains on oral bicarb supplements. Serum bicarb is at 15 and a sodium levels at 136 with potassium level of 4.1. No other significant events over the night. The patient remains on Lasix 40 mg p.o. daily. Insulin doses remain unchanged. On 10/12/2023, the patient is having liquidy stool 4-6 episodes on a daily basis. Remains on Dificid. Labs from today are still pending. Nevertheless, the patient was started on has been progressive improving and spent down to 15.5. No nausea. No emesis. Serum protein and albumin levels are low and the 4.0 and 1.8 respectively. The patient has developed also scrotal edema evaluated by urology. No other changes in the medication. No edema lower extremities bilaterally. The patient remains on room air oxygen. He was also given Questran 4 g p.o. twice daily. Objective - Vital Signs Vital signs: Vital Signs Temp 98.4 F 10/12/23 07:09 Pulse 83 10/12/23 07:09 Resp 17 10/12/23 07:09 BP 113/67 10/12/23 07:09 Pulse Ox 98 10/12/23 07:09 FiO2 40 10/08/23 00:00 Intake & Output 10/11/23 10/12/23 10/12/23 18:59 06:59 18:59 Output Total 1520 1500 Balance -1520 -1500 Output: Urine 1520 1500 Other: Voiding Method Indwelling Catheter Indwelling Catheter # Bowel Movements 5 4 1 ABP, PAP, CO, CI - Last Documented Arterial Blood Pressure 151/81 - Exam No acute distress, oriented 3. Currently on nasal O2 at 2 L. No respiratory distress. HEENT examination is grossly unremarkable. Neck supple. Full range of motion. No adenopathy thyromegaly or neck vein distention. Cardiovascular examination reveals regular rhythm rate. S1-S2 normal. No S3 or S4. No discernible murmur noted. Heart rate is 100 bpm. Lungs reveal clear breath sounds. Breath sounds are equal bilaterally. No adventitious lung sounds including wheezes rhonchi or crackles. Saturations are 98%. Abdomen soft with bowel sounds. No masses or tenderness. The patient has large anterior abdominal wall hernias and scars of previous surgeries. The hernia is reducible. No direct tenderness. No rebound tenderness. No guarding. Extremities are intact. No cyanosis clubbing or edema. The patient has a below-knee amputation of the left lower extremity. The surgical stump is healing nicely. There is no active drainage. No erythema. No abscess formation. Skin is without rash or lesion. Neurologic examination is brief but nonfocal. - Labs CBC & Chem 7: 10/11/23 08:26 10/11/23 08:26 Labs: Abnormal Lab Results - Last 24 Hours (Table) 10/11/23 10/11/23 10/11/23 Range/Units 08:26 08:26 12:26 WBC 13.5 H (3.8-10.6) k/uL RBC 3.29 L (4.30-5.90) m/uL Hgb 9.6 L (13.0-17.5) gm/dL Hct 32.4 L (39.0-53.0) % MCHC 29.7 L (31.0-37.0) g/dL RDW 15.7 H (11.5-15.5) % Neutrophils # 11.0 H (1.3-7.7) k/uL Sodium 136 L (137-145) mmol/L Chloride 117 H (98-107) mmol/L Carbon Dioxide 15 L (22-30) mmol/L BUN 23 H (9-20) mg/dL Glucose 140 H (74-99) mg/dL POC Glucose (mg/dL) 244 H (70-110) mg/dL Calcium 7.5 L (8.4-10.2) mg/dL Total Bilirubin 0.1 L (0.2-1.3) mg/dL AST 12 L (17-59) U/L Total Protein 4.0 L (6.3-8.2) g/dL Albumin 1.8 L (3.5-5.0) g/dL 10/11/23 10/11/23 10/12/23 Range/Units 17:22 21:10 05:21 WBC (3.8-10.6) k/uL RBC (4.30-5.90) m/uL Hgb (13.0-17.5) gm/dL Hct (39.0-53.0) % MCHC (31.0-37.0) g/dL RDW (11.5-15.5) % Neutrophils # (1.3-7.7) k/uL Sodium (137-145) mmol/L Chloride (98-107) mmol/L Carbon Dioxide (22-30) mmol/L BUN (9-20) mg/dL Glucose (74-99) mg/dL POC Glucose (mg/dL) 275 H 233 H 176 H (70-110) mg/dL Calcium (8.4-10.2) mg/dL Total Bilirubin (0.2-1.3) mg/dL AST (17-59) U/L Total Protein (6.3-8.2) g/dL Albumin (3.5-5.0) g/dL Assessment and Plan Plan: Acute C. difficile colitis, currently on a combination of Flagyl and oral Dificid, still having diarrhea and white cell is improving and the patient is currently on no pressors, clinically improving and the patient's white cell count is also improving, currently on Dificid. The patient is also on IV Flagyl. Still having liquidy stool about 6-7 episodes on a daily basis. Sepsis/hypotension, secondary to severe diarrhea, from C. difficile colitis, improved and he is currently on IV fluids , off pressors Acute mental status changes, likely on the basis of septic encephalopathy, improved None anion gap metabolic acidosis, serum bicarb replacement orally Coffee-ground emesis x 2 and the patient, post EGD that revealed gastritis and the patient is currently on IV Protonix Acute leukocytosis, secondary to C. difficile colitis, improving Acute kidney injury, Improving and the patient's creatinine is slowly improving and the patient remains on IV fluids, improving Diabetes mellitus, currently on L Levemir insulin 30 units at bedtime and 10 units in the morning along with NovoLog 5 units with meals and sliding scale coverage. He is also on Actos 30 mg p.o. daily. Recent left BKA, September 03, 2023. History of hypertension. History of hyperlipidemia. Nonhealing ulcer, left lower extremity, with subsequent left BKA. Prior history of methicillin-resistant Staph aureus infection, and Proteus mirabilis bacteremia and the patient completed a course of Rocephin and v ancomycin on outpatient basis at the [facility]. Large anterior abdominal wall hernia Scrotal edema, being evaluated by urology Hypoproteinemia and albuminemia. Plan: White cell count is improving, awaiting labs from today Clinically stable The patient will be kept on oral Dificid and IV Flagyl. Monitor diarrhea, currently, still having liquidy stool Advance diet EGD was done Continue IV fluids Continue oral bicarb, monitor bicarb level, awaiting labs from today Lantus insulin for blood sugar control Surgical wound site over the left lower extremity BKA is dry clean and intact. Renal function is improving Monitor mental status, back to baseline No active pulmonary issues for now.
[2023-10-12] MEDS: FUROSEMIDE 10 MG/ML 4 ML VIAL IV STA (13:08)
[2023-10-12] MEDS: ALBUMIN HUMAN 25% 50 ML in EMPTY BAG 1 BAG IVPB SCH (13:14)
--- NOTE | 2023-10-12 14:30 | P.PN ---
Subjective Progress Note Date: 10/12/23 Principal diagnosis: Reason for follow-up is C. 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 difficile colitis. On today's evaluation that is 10/12/2023,the patient remains to be afebrile, patient is on room air not requiring supplemental oxygen and denies any danny rtness of breath no chest pain or cough.Patient denies having any nausea or vomiting, no abdominal pain and did have 1 small loose stool this morning per the nursing staff. No new labs has been repeated today blood culture has been negative Objective - Vital Signs Vital signs: Vital Signs Temp 98.3 F 10/12/23 12:45 Pulse 76 10/12/23 13:07 Resp 17 10/12/23 12:45 BP 104/65 10/12/23 13:07 Pulse Ox 98 10/12/23 12:45 FiO2 40 10/08/23 00:00 Intake & Output 10/11/23 10/12/23 10/12/23 18:59 06:59 18:59 Output Total 1520 1500 Balance -1520 -1500 Output: Urine 1520 1500 Other: Voiding Method Indwelling Catheter Indwelling Catheter Indwelling Catheter # Bowel Movements 5 4 1 ABP, PAP, CO, CI - Last Documented Arterial Blood Pressure 151/81 - Exam Middle-age male lying in bed in no distress Respiratory system unlabored breathing decreased breath sound the base Heart S1-S2 regular Abdominal soft no tenderness Extremities left BKA stump wound is currently dressed no drainage - Labs CBC & Chem 7: 10/11/23 08:26 10/11/23 08:26 Labs: Abnormal Lab Results - Last 24 Hours (Table) 10/11/23 10/11/23 10/12/23 Range/Units 17:22 21:10 05:21 POC Glucose (mg/dL) 275 H 233 H 176 H (70-110) mg/dL 10/12/23 Range/Units 11:53 POC Glucose (mg/dL) 194 H (70-110) mg/dL Assessment and Plan (1) Leukocytosis Current Visit: Yes Status: Acute Code(s): D72.829 - ELEVATED WHITE BLOOD CELL COUNT, UNSPECIFIED SNOMED Code(s): 162071363 (2) C. difficile colitis Current Visit: Yes Status: Acute Code(s): A04.72 - ENTEROCOLITIS D/T NNEKA STRIDIUM DIFFICILE, NOT SPCF RECUR SNOMED Code(s): 310066821 Plan: 1patient presented to the hospital with sepsis in this patient who did have hypotension tachycardia low-grade fever and elevated white count medically clear for SIRS/sepsis source is severe C. difficile colitis failing outpatient treatment 2-patient also have left BKA stump wound does not look infected continue with local wound care per the wound care 3-patient white count is trending down as of yesterday no CBC has been done today we will repeat a CBC with a.m. labs and continue with the Dificid and monitor clinical course closely Dictation was produced using [employer] dictation software. please excuse any grammatical, word or spelling errors. Time with Patient: Less than 30
[2023-10-12 16:36] LABS: Glucose,Whole Blood 242 mg/dL (70-110)
[2023-10-12 20:09] LABS: Glucose,Whole Blood 273 mg/dL (70-110)
--- NOTE | 2023-10-12 21:10 | PN ---
PROGRESS NOTE SUBJECTIVE: Status post MRSA. He is admitted for C diff colitis, severe colitis throughout his abdomen. He has scrotal edema, he has low albumin. I ordered albumin infusion, Lasix. Dr. Mora saw for severe scrotal edema, white count is 13.5, hemoglobin is 9.5, BUN is 23, creatinine 1.04. He has sacral scrotal edema secondary to anasarca lobe. Total protein, albumin, ascites, pertinent scrotal elevation. Nothing is recommended. Continue on albumin and get dietary involved for low protein. White count is down to 13.5, creatinine 1.04. OBJECTIVE: VITAL SIGNS: Blood pressure 104/54, pulse ox 96, FiO2 is 40, temp 98.9, pulse 88, and respiratory rate 18. CARDIOVASCULAR: S1, S2. LUNGS: Transmitted upper sounds. GI soft, leukocytosis, C diff colitis. Anasarca. Severe protein-calorie malnutrition with anasarca type changes. Continue on Dificid, Wound care. Prognosis guarded, Lasix albumin treatment. MMODL / IJN: [id number] /
[2023-10-12 21:58] LABS: Glucose,Whole Blood 243 mg/dL (70-110)
[2023-10-13 05:39] LABS: Glucose,Whole Blood 165 mg/dL (70-110)
[2023-10-13 08:30] LABS: Basophils # (A) 0.04 X 10*3/uL (0.00-0.10); Basophils % (A) 0.4 %; Eosinophils # (A) 0.26 X 10*3/uL (0.04-0.35); Eosinophils % (A) 2.3 %; HCT 27.4 % (39.6-50.0); HGB 8.4 g/dL (13.0-17.0); Lymphocytes # (A) 0.88 X 10*3/uL (0.90-5.00); Lymphocytes % (A) 7.9 %; MCH 29.7 pg (27.0-32.0); MCHC 30.7 g/dL (32.0-37.0); MCV 96.8 FL (80.0-97.0); Mean Platelet Volume 10.9 FL (9.5-12.2); Monocytes # (A) 1.01 X 10*3/uL (0.20-1.00); Monocytes % (A) 9.1 %; NRBC Per 100 WBC 0 X 10*3/uL (0.00-0.01); Neutrophils # (A) 8.82 X 10*3/uL (1.80-7.70); Neutrophils % (A) 79.5 %; Platelet Count 222 X 10*3/uL (140-440); RBC 2.83 X 10*6/uL (4.40-5.60); RDW 16.1 % (11.5-14.5)
--- NOTE | 2023-10-13 11:25 | P.PN ---
Subjective Patient is seen in follow-up for acute kidney injury. Renal function improved. Still having loose bowel movements. No vomiting. Oral intake fair. Vital signs are stable. General: No acute distress. HEENT: Head exam is unremarkable. LUNGS: No audible rhonchi or wheezes. HEART: Rate and Rhythm are regular. ABDOMEN: Nontender. EXTREMITITES: 1+ edema. Left BKA noted. Objective - Vital Signs Vital signs: Vital Signs Temp 98.7 F 10/13/23 07:19 Pulse 83 10/13/23 07:19 Resp 15 10/13/23 07:19 BP 103/65 10/13/23 07:19 Pulse Ox 95 10/13/23 07:19 FiO2 40 10/08/23 00:00 Intake & Output 10/12/23 10/13/23 10/13/23 18:59 06:59 18:59 Output Total 1540 900 Balance -1540 -900 Output: Urine 1540 900 Uretheral (Domínguez) 1540 Other: Voiding Method Indwelling Catheter Indwelling Catheter Indwelling Catheter # Bowel Movements 1 4 ABP, PAP, CO, CI - Last Documented Arterial Blood Pressure 151/81 - Labs CBC & Chem 7: 10/13/23 04:20 10/11/23 08:26 Labs: Abnormal Lab Results - Last 24 Hours (Table) 10/12/23 10/12/23 10/12/23 Range/Units 11:53 16:35 20:07 WBC (4.50-10.00) X 10*3/uL RBC (4.40-5.60) X 10*6/uL Hgb (13.0-17.0) g/dL Hct (39.6-50.0) % MCHC (32.0-37.0) g/dL RDW (11.5-14.5) % Immature Gran # (0.00-0.04) X 10*3/uL Neutrophils # (1.80-7.70) X 10*3/uL Lymphocytes # (0.90-5.00) X 10*3/uL Monocytes # (0.20-1.00) X 10*3/uL POC Glucose (mg/dL) 194 H 242 H 273 H (70-110) mg/dL 10/12/23 10/13/23 10/13/23 Range/Units 21:57 04:20 05:38 WBC 11.10 H (4.50-10.00) X 10*3/uL RBC 2.83 L (4.40-5.60) X 10*6/uL Hgb 8.4 L (13.0-17.0) g/dL Hct 27.4 L (39.6-50.0) % MCHC 30.7 L (32.0-37.0) g/dL RDW 16.1 H (11.5-14.5) % Immature Gran # 0.09 H (0.00-0.04) X 10*3/uL Neutrophils # 8.82 H (1.80-7.70) X 10*3/uL Lymphocytes # 0.88 L (0.90-5.00) X 10*3/uL Monocytes # 1.01 H (0.20-1.00) X 10*3/uL POC Glucose (mg/dL) 243 H 165 H (70-110) mg/dL Assessment and Plan Plan: Assessment: 1. Acute kidney injury secondary to ATN secondary to hypotension and hypovolemia. Creatinine 4.38 dated October 01, 2023 and improved to 1.04 today. Baseline creatinine near 1. No hydronephrosis noted on CT. UA fairly benign. 2. C. difficile colitis maintained on Dificid. 3. Metabolic acidosis secondary to acute kidney injury and GI losses. On oral bicarb. 4. Septic shock. Now off vasopressors. Plan: Encouraged oral intake. Avoid nephrotoxins. Continue to monitor renal function and urine output. Repeat labs in the morning.
[2023-10-13 11:30] LABS: Glucose,Whole Blood 241 mg/dL (70-110)
[2023-10-13 12:18] LABS: African American GFR (CKD) >90 (>60 ml/min/1.73 sqM); Anion Gap 3 mmol/L; Blood Urea Nitrogen 15 mg/dL (9-20); Calcium 7.7 mg/dL (8.4-10.2); Carbon Dioxide 19 mmol/L (22-30); Chloride 114 mmol/L (98-107); Glucose 236 mg/dL (74-99); Magnesium 1.7 mg/dL (1.6-2.3); Non-African American GFR(CKD) >90 (>60 ml/min/1.73 sqM); Potassium 3.5 mmol/L (3.5-5.1); Sodium 136 mmol/L (137-145)
--- NOTE | 2023-10-13 15:30 | P.PN ---
Subjective Progress Note Date: 10/13/23 52-year-old male who is seen in the emergency department, October 04, 2023. The patient came in with weakness, mental status changes, and suspected sepsis. The patient recently had a left below the knee amputation, done by Dr. Domínguez, on September 02. 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 The patient was discharged after number days to a local care home. He came back into the emergency department as mentioned on October 03. He was being treated for a C. difficile infection. He apparently was noted to be febrile, lethargic, and weak, with a low blood pressure. For that reason, he was sent in to the emergency department, and brought in by EMS. I was called by the emergency room physician, who did fluid resuscitation initially, but then started him on some norepinephrine. For that reason, the patient necessitated an admission to the intensive care unit. Currently he is on 2 L of oxygen. He is given D5W with 3 ampoules of sodium bicarb and at 125 cc an hour. His norepinephrine dose is 4 mcg/min. He is currently on IV Flagyl, and oral vancomycin for his C. difficile infection. White count is 21.9, hemoglobin 10.2, hematocrit 32.9, platelet count 199,000. Sodium 139, potassium 4.6, chlorides 119, CO2 9, BUN 99, creatinine 2.96. Glucose is 192. Calcium 8.8, magnesium 2.3. He did test positive here for C. difficile. Chest x-ray is read as normal here. CT of the abdomen and pelvis shows circumferential thickening of the colon throughout its entire length, most compatible with colitis. On today's evaluation of 10/06/2023, the patient is being seen for a follow-up. The patient was moved to the intensive care unit because of ongoing diarrhea and the patient also developed 2 episodes of coffee-ground emesis overnight and the patient is going to undergo an EGD today. The patient is currently on IV Protonix. The patient is NPO. The patient is eating combination IV Flagyl and oral vancomycin regarding acute C. difficile colitis. The patient is currently off pressors. White cell count remains elevated. Remains somewhat encephalopathic although there is improvement in his mentation over the past 12 hours. The white cell count is at 24 with a hemoglobin 9.9 and a platelet count of 198. Sodium is at 140, potassium is 3.8, serum bicarb is improved and is currently up to 21 with a BUN of 80 and a creatinine of 1.9 and the patient is improving in terms of his renal function. The HbA1c is at 7.8. LFTs are normal. Troponins are negative. Most recent blood sugar is 306. The patient is on bicarb infusion which is running at a rate of 125 cc an hour. Serum bicarb is improved. The patient is on Levemir insulin 30 units in the evening and 10 units in the morning along with a NovoLog sliding scale coverage. The patient is currently on oral bicarb supplements. No significant abdominal pain. He does have a large anterior abdominal wall ventral hernia. On 10/07/2023, the patient is being seen for a follow-up. The patient continues to have episodes of diarrhea and the patient remains on a combination of oral vancomycin 500 mg p.o. 4 times daily and IV metronidazole. The patient's abdomen is mildly tender. The white cell count is still elevated at 30.5 with a hemoglobin 10.3 and a platelet count of 65. Creatinine is improving is currently down to 1.64 with a BUN of 78 and a sodium levels at 139. The patient remains on normal saline at a rate of 100 cc an hour. Overnight, the patient had to be placed on pressors and the patient is currently on norepinephrine at 0.05 mcg/kg/min. The patient had a positive fluid balance of 1.8 L over the past 24 hours. The patient underwent an EGD yesterday and the patient was found to have gastritis and biopsies were taken. The patient remains on IV Protonix. Diet will be provided today. Rest of medications remain unchanged. He remains on Levemir 30 units in the evening and 10 units in the morning along with NovoLog 5 units with meals. No other significant events overnight. Blood cultures been negative. General surgery is on the case. 10/08/2023, the patient continues to have liquidy diarrhea. The patient also has some flatulence. Remains on IV Flagyl and oral vancomycin. He is on room air oxygen. White cell count is improving and currently down to 20.5 with a hemoglobin 9.8 and a platelet count of 223. Creatinine is also improving and is down to 1.34 with a BUN of 51. Sodium level is at 137, serum bicarb is at 20. Blood sugars at 282. The patient remains on DuoNeb. Furthermore, the patient was taken off the oral vancomycin the patient was switched to Dificid. Rest of the medication remain unchanged. The patient remains on low-dose pressors and the patient is still requiring low-dose norepinephrine which is running 0.02 mcg/kg/min. IV fluids are in the form of normal saline at rate of 100 cc an hour. This is a medication remains unchanged. He remains on Levemir insulin 30 units at nighttime and 10 units in the morning in addition to sliding scale coverage. He is on Lasix 40 mg p.o. daily. 10/09/2023, I am seeing the patient for a follow-up. This patient is on oral Dificid and IV Flagyl. He was transferred out of the intensive care unit yesterday. He remains hemodynamically stable. White cell count continues to improve and is currently down to 17 with a hemoglobin 9.5. BUN 35 with a creatinine of 1.08 and a sodium levels at 136. Afebrile. Hemodynamically stable. No other significant events overnight. Rest of medications remain unchanged. He remains on IV fluid normal saline at rate of 100 cc an hour. The serum bicarb is currently at 18. On today's evaluation of 10/10/2023, I am seeing the patient for a follow-up. The patient is doing well. No active diarrhea. No nausea vomiting or abdominal pain. Clinically stable. Hemodynamically stable. Serum bicarb is currently at 15 and this was attributed to metabolic acidosis. BUN 30 creatinine 1.2 and sodium is at 136. White cell count is improved and the patient's white cell count is down to 14.7 with a hemoglobin of 9.7. The patient remains on IV Flagy l and oral Dificid for C. difficile colitis. The patient is also receiving bicarb tablets 650 mg p.o. twice a day. The patient remains on room air oxygen. He was able to sit up in a chair today. Calm and comfortable. On today's evaluation of 10/11/2023, patient is stable. No active diarrhea. H emodynamically stable. White cell count is down to 17.5 with a hemoglobin 9.6 and the patient remains on Dificid. The patient remains on room air oxygen. No nausea but no vomiting. No abdominal pain. No chest pain. Rest of the medication shmuel unchanged and the patient remains on oral bicarb supplements. Serum bicarb is at 15 and a sodium levels at 136 with potassium level of 4.1. No other significant events over the night. The patient remains on Lasix 40 mg p.o. daily. Insulin doses remain unchanged. On 10/12/2023, the patient is having liquidy stool 4-6 episodes on a daily basis. Remains on Dificid. Labs from today are still pending. Nevertheless, the patient was started on has been progressive improving and spent down to 15.5. No nausea. No emesis. Serum protein and albumin levels are low and the 4.0 and 1.8 respectively. The patient has developed also scrotal edema evaluated by urology. No other changes in the medication. No edema lower extremities bilaterally. The patient remains on room air oxygen. He was also given Questran 4 g p.o. twice daily. The patient is seen today October 13, 2023 in follow-up on the regular medical floor. He is awake and alert in no acute distress. He is maintaining O2 saturations in the 90s on room air. He denies any worsening shortness of breath, cough or congestion. He is still having ongoing issues with diarrhea. He is in isolation precautions due to his C. difficile colitis. He remains on Dificid. Blood cultures revealed no growth. White count 11.1. Hemoglobin 8.4. Platelets 222. Sodium 136. Potassium 3.5. Bicarb 19. BUN 15. Creatinine 0.89. Glucose 236. He remains on sodium bicarbonate tablets. Objective - Vital Signs Vital signs: Vital Signs Temp 97.4 F L 10/13/23 13:37 Pulse 76 10/13/23 13:37 Resp 16 10/13/23 13:37 BP 112/69 10/13/23 13:37 Pulse Ox 98 10/13/23 13:37 FiO2 40 10/08/23 00:00 Intake & Output 10/12/23 10/13/23 10/13/23 18:59 06:59 18:59 Output Total 1540 900 Balance -1540 -900 Weight 103.4 kg Output: Urine 1540 900 Uretheral (Domínguez) 1540 Other: Voiding Method Indwelling Catheter Indwelling Catheter Indwelling Catheter # Bowel Movements 1 4 ABP, PAP, CO, CI - Last Documented Arterial Blood Pressure 151/81 - Exam GENERAL EXAM: Alert, pleasant 52-year-old male, on room air, comfortable in no apparent distress. HEAD: Normocephalic. EYES: Normal reaction of pupils, equal size. NOSE: Clear with pink turbinates. THROAT: No erythema or exudates. NECK: No masses, no JVD. CHEST: No chest wall deformity. LUNGS: Equal air entry with no crackles, wheeze, rhonchi or dullness. CVS: S1 and S2 normal with no audible murmur, regular rhythm. ABDOMEN: No hepatosplenomegaly, normal bowel sounds, no guarding or rigidity. SPINE: No scoliosis or deformity SKIN: No rashes CENTRAL NERVOUS SYSTEM: No focal deficits, tone is normal in all 4 extremities. EXTREMITIES: Left BKA. There is no peripheral edema. No clubbing, no cyanosis. Peripheral pulses are intact. - Labs CBC & Chem 7: 10/13/23 04:20 10/13/23 11:40 Labs: Abnormal Lab Results - Last 24 Hours (Table) 10/12/23 10/12/23 10/12/23 Range/Units 16:35 20:07 21:57 WBC (4.50-10.00) X 10*3/uL RBC (4.40-5.60) X 10*6/uL Hgb (13.0-17.0) g/dL Hct (39.6-50.0) % MCHC (32.0-37.0) g/dL RDW (11.5-14.5) % Immature Gran # (0.00-0.04) X 10*3/uL Neutrophils # (1.80-7.70) X 10*3/uL Lymphocytes # (0.90-5.00) X 10*3/uL Monocytes # (0.20-1.00) X 10*3/uL Sodium (137-145) mmol/L Chloride (98-107) mmol/L Carbon Dioxide (22-30) mmol/L Glucose (74-99) mg/dL POC Glucose (mg/dL) 242 H 273 H 243 H (70-110) mg/dL Calcium (8.4-10.2) mg/dL 10/13/23 10/13/23 10/13/23 Range/Units 04:20 05:38 11:27 WBC 11.10 H (4.50-10.00) X 10*3/uL RBC 2.83 L (4.40-5.60) X 10*6/uL Hgb 8.4 L (13.0-17.0) g/dL Hct 27.4 L (39.6-50.0) % MCHC 30.7 L (32.0-37.0) g/dL RDW 16.1 H (11.5-14.5) % Immature Gran # 0.09 H (0.00-0.04) X 10*3/uL Neutrophils # 8.82 H (1.80-7.70) X 10*3/uL Lymphocytes # 0.88 L (0.90-5.00) X 10*3/uL Monocytes # 1.01 H (0.20-1.00) X 10*3/uL Sodium (137-145) mmol/L Chloride (98-107) mmol/L Carbon Dioxide (22-30) mmol/L Glucose (74-99) mg/dL POC Glucose (mg/dL) 165 H 241 H (70-110) mg/dL Calcium (8.4-10.2) mg/dL 10/13/23 Range/Units 11:40 WBC (4.50-10.00) X 10*3/uL RBC (4.40-5.60) X 10*6/uL Hgb (13.0-17.0) g/dL Hct (39.6-50.0) % MCHC (32.0-37.0) g/dL RDW (11.5-14.5) % Immature Gran # (0.00-0.04) X 10*3/uL Neutrophils # (1.80-7.70) X 10*3/uL Lymphocytes # (0.90-5.00) X 10*3/uL Monocytes # (0.20-1.00) X 10*3/uL Sodium 136 L (137-145) mmol/L Chloride 114 H (98-107) mmol/L Carbon Dioxide 19 L (22-30) mmol/L Glucose 236 H (74-99) mg/dL POC Glucose (mg/dL) (70-110) mg/dL Calcium 7.7 L (8.4-10.2) mg/dL Assessment and Plan Assessment: Acute C. difficile colitis, currently on oral Dificid, and completed Flagyl still having diarrhea and white cell is improving and the patient is currently off pressors. Still having liquidy stool with multiple episodes on a daily basis. Sepsis/hypotension, secondary to severe diarrhea, from C. difficile colitis, improved and he is off pressors Acute mental status changes, likely on the basis of septic encephalopathy, improved None anion gap metabolic acidosis, sodium bicarb replacement orally Coffee-ground emesis x 2 and the patient, post EGD that revealed gastritis and the patient is currently on Pepcid Acute leukocytosis, secondary to C. difficile colitis, improving Acute kidney injury, recovered Diabetes mellitus Recent left BKA, September 03, 2023. History of hypertension. History of hyperlipidemia. Nonhealing ulcer, left lower extremity, with subsequent left BKA. Prior history of methicillin-resistant Staph aureus infection, and Proteus mirabilis bacteremia and the patient completed a course of Rocephin and vancomycin on outpatient basis at the [facility]. Large anterior abdominal wall hernia Scrotal edema, being evaluated by urology Plan: The patient was seen and evaluated Labs and medications reviewed Continue with the current treatment plan Stable and on room air Still having some diarrhea Remains on Dificid Completed Flagyl We will continue to follow I have personally seen and examined the patient, performed the documentation and the assessment and plan as written. Number of minutes spent on the visit: 10.
--- NOTE | 2023-10-13 15:33 | P.PN ---
Subjective Progress Note Date: 10/13/23 CHIEF COMPLAINT: C. difficile colitis HISTORY OF PRESENT ILLNESS: Patient presented with fever weakness and hypotension and is being treated for C. difficile colitis with sepsis. Patient reports decrease in diarrhea. He does still report having abdominal bloating. Denies any nausea or vomiting. Denies any abdominal pain. Afebrile. WBC down from 13.5 to 11.10 PHYSICAL EXAM: VITAL SIGNS: Reviewed. GENERAL: no acute distress. ABDOMEN: Soft. Distended. Nontender. large Ventral hernia is reducible NEUROLOGIC: Alert and oriented. Cranial nerves II through XII grossly intact. ASSESSMENT: 1. C. difficile colitis 2. Coffee-ground emesis status post EGD revealing gastritis PLAN: -No surgical intervention planned -Continue C. difficile treatment -Continue to monitor [employer] note has been reviewed by physician. Signing provider agrees with the documented findings, assessment, and plan of care. Objective - Vital Signs Vital signs: Vital Signs Temp 97.4 F L 10/13/23 13:37 Pulse 76 10/13/23 13:37 Resp 16 10/13/23 13:37 BP 112/69 10/13/23 13:37 Pulse Ox 98 10/13/23 13:37 FiO2 40 10/08/23 00:00 Intake & Output 10/12/23 10/13/23 10/13/23 18:59 06:59 18:59 Output Total 1540 900 Balance -1540 -900 Weight 103.4 kg Output: Urine 1540 900 Uretheral (Domínguez) 1540 Other: Voiding Method Indwelling Catheter Indwelling Catheter Indwelling Catheter # Bowel Movements 1 4 ABP, PAP, CO, CI - Last Documented Arterial Blood Pressure 151/81 - Labs CBC & Chem 7: 10/13/23 04:20 10/13/23 11:40 Labs: Abnormal Lab Results - Last 24 Hours (Table) 10/12/23 10/12/23 10/12/23 Range/Units 16:35 20:07 21:57 WBC (4.50-10.00) X 10*3/uL RBC (4.40-5.60) X 10*6/uL Hgb (13.0-17.0) g/dL Hct (39.6-50.0) % MCHC (32.0-37.0) g/dL RDW (11.5-14.5) % Immature Gran # (0.00-0.04) X 10*3/uL Neutrophils # (1.80-7.70) X 10*3/uL Lymphocytes # (0.90-5.00) X 10*3/uL Monocytes # (0.20-1.00) X 10*3/uL Sodium (137-145) mmol/L Chloride (98-107) mmol/L Carbon Dioxide (22-30) mmol/L Glucose (74-99) mg/dL POC Glucose (mg/dL) 242 H 273 H 243 H (70-110) mg/dL Calcium (8.4-10.2) mg/dL 10/13/23 10/13/23 10/13/23 Range/Units 04:20 05:38 11:27 WBC 11.10 H (4.50-10.00) X 10*3/uL RBC 2.83 L (4.40-5.60) X 10*6/uL Hgb 8.4 L (13.0-17.0) g/dL Hct 27.4 L (39.6-50.0) % MCHC 30.7 L (32.0-37.0) g/dL RDW 16.1 H (11.5-14.5) % Immature Gran # 0.09 H (0.00-0.04) X 10*3/uL Neutrophils # 8.82 H (1.80-7.70) X 10*3/uL Lymphocytes # 0.88 L (0.90-5.00) X 10*3/uL Monocytes # 1.01 H (0.20-1.00) X 10*3/uL Sodium (137-145) mmol/L Chloride (98-107) mmol/L Carbon Dioxide (22-30) mmol/L Glucose (74-99) mg/dL POC Glucose (mg/dL) 165 H 241 H (70-110) mg/dL Calcium (8.4-10.2) mg/dL 10/13/23 Range/Units 11:40 WBC (4.50-10.00) X 10*3/uL RBC (4.40-5.60) X 10*6/uL Hgb (13.0-17.0) g/dL Hct (39.6-50.0) % MCHC (32.0-37.0) g/dL RDW (11.5-14.5) % Immature Gran # (0.00-0.04) X 10*3/uL Neutrophils # (1.80-7.70) X 10*3/uL Lymphocytes # (0.90-5.00) X 10*3/uL Monocytes # (0.20-1.00) X 10*3/uL Sodium 136 L (137-145) mmol/L Chloride 114 H (98-107) mmol/L Carbon Dioxide 19 L (22-30) mmol/L Glucose 236 H (74-99) mg/dL POC Glucose (mg/dL) (70-110) mg/dL Calcium 7.7 L (8.4-10.2) mg/dL
[2023-10-13] MEDS: POTASSIUM CHLORIDE ER 20 MEQ TAB.ER PO STA (16:17)
[2023-10-13 16:30] LABS: Glucose,Whole Blood 288 mg/dL (70-110)
--- NOTE | 2023-10-13 18:12 | P.PN ---
Subjective Progress Note Date: 10/13/23 Principal diagnosis: Reason for follow-up is C. 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 difficile colitis. On today's evaluation that is 10/13/2023, the patient continues to be afebrile, the patient is on room air and breathing comfortably, the Pt denies having any chest pain or cough, the patient denies having any abdominal pain no vomiting no worsening diarrhea reported by the nursing staff. Patient white count is down to 11.10 creatinine 0.89 Objective - Vital Signs Vital signs: Vital Signs Temp 98.7 F 10/13/23 07:19 Pulse 83 10/13/23 07:19 Resp 15 10/13/23 07:19 BP 103/65 10/13/23 07:19 Pulse Ox 95 10/13/23 07:19 FiO2 40 10/08/23 00:00 Intake & Output 10/12/23 10/13/23 10/13/23 18:59 06:59 18:59 Output Total 1540 900 Balance -1540 -900 Output: Urine 1540 900 Uretheral (Domínguez) 1540 Other: Voiding Method Indwelling Catheter Indwelling Catheter Indwelling Catheter # Bowel Movements 1 4 ABP, PAP, CO, CI - Last Documented Arterial Blood Pressure 151/81 - Exam Middle-age male lying in bed in no distress Respiratory system unlabored breathing decreased breath sound the base Heart S1-S2 regular Abdominal soft no tenderness Extremities left BKA stump wound is currently dressed no drainage - Labs CBC & Chem 7: 10/13/23 04:20 10/13/23 11:40 Labs: Abnormal Lab Results - Last 24 Hours (Table) 10/12/23 10/12/23 10/12/23 Range/Units 16:35 20:07 21:57 WBC (4.50-10.00) X 10*3/uL RBC (4.40-5.60) X 10*6/uL Hgb (13.0-17.0) g/dL Hct (39.6-50.0) % MCHC (32.0-37.0) g/dL RDW (11.5-14.5) % Immature Gran # (0.00-0.04) X 10*3/uL Neutrophils # (1.80-7.70) X 10*3/uL Lymphocytes # (0.90-5.00) X 10*3/uL Monocytes # (0.20-1.00) X 10*3/uL Sodium (137-145) mmol/L Chloride (98-107) mmol/L Carbon Dioxide (22-30) mmol/L Glucose (74-99) mg/dL POC Glucose (mg/dL) 242 H 273 H 243 H (70-110) mg/dL Calcium (8.4-10.2) mg/dL 10/13/23 10/13/23 10/13/23 Range/Units 04:20 05:38 11:27 WBC 11.10 H (4.50-10.00) X 10*3/uL RBC 2.83 L (4.40-5.60) X 10*6/uL Hgb 8.4 L (13.0-17.0) g/dL Hct 27.4 L (39.6-50.0) % MCHC 30.7 L (32.0-37.0) g/dL RDW 16.1 H (11.5-14.5) % Immature Gran # 0.09 H (0.00-0.04) X 10*3/uL Neutrophils # 8.82 H (1.80-7.70) X 10*3/uL Lymphocytes # 0.88 L (0.90-5.00) X 10*3/uL Monocytes # 1.01 H (0.20-1.00) X 10*3/uL Sodium (137-145) mmol/L Chloride (98-107) mmol/L Carbon Dioxide (22-30) mmol/L Glucose (74-99) mg/dL POC Glucose (mg/dL) 165 H 241 H (70-110) mg/dL Calcium (8.4-10.2) mg/dL 10/13/23 Range/Units 11:40 WBC (4.50-10.00) X 10*3/uL RBC (4.40-5.60) X 10*6/uL Hgb (13.0-17.0) g/dL Hct (39.6-50.0) % MCHC (32.0-37.0) g/dL RDW (11.5-14.5) % Immature Gran # (0.00-0.04) X 10*3/uL Neutrophils # (1.80-7.70) X 10*3/uL Lymphocytes # (0.90-5.00) X 10*3/uL Monocytes # (0.20-1.00) X 10*3/uL Sodium 136 L (137-145) mmol/L Chloride 114 H (98-107) mmol/L Carbon Dioxide 19 L (22-30) mmol/L Glucose 236 H (74-99) mg/dL POC Glucose (mg/dL) (70-110) mg/dL Calcium 7.7 L (8.4-10.2) mg/dL Assessment and Plan (1) Leukocytosis Current Visit: Yes Status: Acute Code(s): D72.829 - ELEVATED WHITE BLOOD CELL COUNT, UNSPECIFIED SNOMED Code(s): 845751919 (2) C. difficile colitis Current Visit: Yes Status: Acute Code(s): A04.72 - ENTEROCOLITIS D/T CLOSTRIDIUM DIFFICILE, NOT SPCF RECUR SNOMED Code(s): 378431783 Plan: 1patient presented to the hospital with sepsis in this patient who did have hypotension tachycardia low-grade fever and elevated white count medically clear for SIRS/sepsis source is severe C. difficile colitis failing outpatient treatment 2-patient also have left BKA stump wound does not look infected continue with local wound care per the wound care 3-patient white count is trending down and diarrhea is slowing down to continue with the Dificid encouraged to increase his yogurt intake Dictation was produced using [employer] dictation software. please excuse any grammatical, word or spelling errors. Time with Patient: Less than 30
[2023-10-13 20:05] LABS: Glucose,Whole Blood 275 mg/dL (70-110)
[2023-10-13] MEDS: ALBUMIN HUMAN 25% 50 ML in EMPTY BAG 1 BAG IVPB SCH (20:22)
[2023-10-13] MEDS: FUROSEMIDE 10 MG/ML 2 ML VIAL IV SCH (20:44)
[2023-10-13 22:14] LABS: Glucose,Whole Blood 203 mg/dL (70-110)
[2023-10-14 06:16] LABS: Glucose,Whole Blood 122 mg/dL (70-110)
[2023-10-14 09:02] LABS: BUN/Creat Ratio 20.11 Ratio (12.00-20.00); Blood Urea Nitrogen 18.1 mg/dL (9.0-27.0); Calcium 7.9 mg/dL (8.7-10.3); Carbon Dioxide 20.1 mmol/L (21.6-31.8); Chloride 113 mmol/L (96-109); Glucose 126 mg/dL (70-110); Magnesium 1.8 mg/dL (1.5-2.4); Potassium 3.7 mmol/L (3.5-5.5); Sodium 141 mmol/L (135-145)
[2023-10-14 10:51] LABS: Glucose,Whole Blood 202 mg/dL (70-110)
--- NOTE | 2023-10-14 11:16 | PN ---
PROGRESS NOTE SUBJECTIVE: This is a 52-year-old white male, 2 days ago with IV Lasix afterwards for hypoalbuminemia and third-spacing fluids with scrotal edema and leg edema. Sodium bicarb, oxygen is in the 90s, issues with diarrhea, C diff colitis. Remains on Dificid. Blood cultures, no growth. BUN is 84, white count 11.1, potassium 3.5, bicarb 19, creatinine 0.89. Sugars 230s. OBJECTIVE: VITAL SIGNS: Blood pressure 112/69, O2 98, FiO2 40, respiratory rate 16 to 18. HEENT: Normocephalic, atraumatic. Pupils equal, round, reactive. LUNGS: Decreased breath sounds. HEART: S1, S2. ABDOMEN: Soft. EXTREMITIES: Scrotal edema, third-spacing of fluids in the lower extremities. Chronic anemia, C diff colitis, sepsis, hypertension, mental status changes, non-anion gap metabolic acidosis, status post EGD for coffee-grounds emesis. No significant bleeding. Diabetes mellitus with left BKA, hypertension, dyslipidemia, nonhealing ulcer, left lower extremity. C diff is improving. History of MRSA, Proteus mirabilis bacteremia. Current treatment plan. Stable on room air. Some diarrhea, Dificid, completing Flagyl. Please see further orders. Possible discharge home. DICTATION ENDS HERE MMODL / IJN: [id number] /
--- NOTE | 2023-10-14 11:50 | P.PN ---
Subjective Patient is seen in follow-up for acute kidney injury. Renal function improved. Still having loose bowel movements. No vomiting. Oral intake fair. Vital signs are stable. General: No acute distress. HEENT: Head exam is unremarkable. LUNGS: No audible rhonchi or wheezes. HEART: Rate and Rhythm are regular. ABDOMEN: Nontender. EXTREMITITES: 1+ edema. Left BKA noted. Objective - Vital Signs Vital signs: Vital Signs Temp 98.7 F 10/14/23 07:30 Pulse 88 10/14/23 07:30 Resp 16 10/14/23 07:30 BP 107/67 10/14/23 07:30 Pulse Ox 95 10/14/23 09:06 FiO2 40 10/08/23 00:00 Intake & Output 10/13/23 10/14/23 10/14/23 18:59 06:59 18:59 Intake Total 540 Output Total 1800 1974 Balance -1800 -1435 Weight 103.4 kg Intake: Oral 540 Output: Urine 1800 1974 Other: Voiding Method Indwelling Catheter Indwelling Catheter # Bowel Movements 9 6 2 ABP, PAP, CO, CI - Last Documented Arterial Blood Pressure 151/81 - Labs CBC & Chem 7: 10/13/23 04:20 10/14/23 04:45 Labs: Abnormal Lab Results - Last 24 Hours (Table) 10/13/23 10/13/23 10/13/23 Range/Units 11:40 16:28 20:03 Sodium 136 L (137-145) mmol/L Chloride 114 H (98-107) mmol/L Carbon Dioxide 19 L (22-30) mmol/L BUN/Creatinine Ratio (12.00-20.00) Ratio Glucose 236 H (74-99) mg/dL POC Glucose (mg/dL) 288 H 275 H (70-110) mg/dL Calcium 7.7 L (8.4-10.2) mg/dL 10/13/23 10/14/23 10/14/23 Range/Units 22:13 04:45 05:58 Sodium (137-145) mmol/L Chloride 113 H (98-107) mmol/L Carbon Dioxide 20.1 L (22-30) mmol/L BUN/Creatinine Ratio 20.11 H (12.00-20.00) Ratio Glucose 126 H (74-99) mg/dL POC Glucose (mg/dL) 203 H 122 H (70-110) mg/dL Calcium 7.9 L (8.4-10.2) mg/dL 10/14/23 Range/Units 10:50 Sodium (137-145) mmol/L Chloride (98-107) mmol/L Carbon Dioxide (22-30) mmol/L BUN/Creatinine Ratio (12.00-20.00) Ratio Glucose (74-99) mg/dL POC Glucose (mg/dL) 202 H (70-110) mg/dL Calcium (8.4-10.2) mg/dL Assessment and Plan Plan: Assessment: 1. Acute kidney injury secondary to ATN secondary to hypotension and hypovolemia. Creatinine 4.38 dated October 01, 2023 and improved to 0.9 today. Baseline creatinine near 1. No hydronephrosis noted on CT. UA fairly benign. 2. C. difficile colitis maintained on Dificid. 3. Metabolic acidosis secondary to acute kidney injury and GI losses. On oral bicarb. Better. 4. Septic shock. Now off vasopressors. 5. Lower extremity edema maintained on oral Lasix. Plan: Encouraged oral intake. Avoid nephrotoxins. Continue to monitor renal function and urine output. Repeat labs in the morning.
[2023-10-14] MEDS: POTASSIUM CHLORIDE ER 10 MEQ TAB.ER.PRT PO SCH (12:03)
--- NOTE | 2023-10-14 12:33 | P.PN ---
Subjective Progress Note Date: 10/14/23 CHIEF COMPLAINT: C. difficile colitis HISTORY OF PRESENT ILLNESS: Patient admitted with C. difficile colitis with sepsis. Patient continues to report diarrhea. Denies any abdominal pain. He does report bloating. Denies any nausea or vomiting. Afebrile. PHYSICAL EXAM: VITAL SIGNS: Reviewed. GENERAL: no acute distress. ABDOMEN: Soft. Distended. Nontender. large Ventral hernia is reducible NEUROLOGIC: Alert and oriented. Cranial nerves II through XII grossly intact. ASSESSMENT: 1. C. difficile colitis 2. Coffee-ground emesis status post EGD revealing gastritis PLAN: -No surgical intervention planned -Continue C. difficile treatment -Continue to monitor Physician [employer] Chief note has been reviewed by physician. Signing provider agrees with the documented findings, assessment, and plan of care. Objective - Vital Signs Vital signs: Vital Signs Temp 98.7 F 10/14/23 07:30 Pulse 88 10/14/23 07:30 Resp 16 10/14/23 07:30 BP 107/67 10/14/23 07:30 Pulse Ox 95 10/14/23 09:06 FiO2 40 10/08/23 00:00 Intake & Output 10/13/23 10/14/23 10/14/23 18:59 06:59 18:59 Intake Total 540 Output Total 1800 1974 Balance -1800 -1435 Weight 103.4 kg Intake: Oral 540 Output: Urine 1800 1974 Other: Voiding Method Indwelling Catheter Indwelling Catheter # Bowel Movements 9 6 2 ABP, PAP, CO, CI - Last Documented Arterial Blood Pressure 151/81 - Labs CBC & Chem 7: 10/13/23 04:20 10/14/23 04:45 Labs: Abnormal Lab Results - Last 24 Hours (Table) 10/13/23 10/13/23 10/13/23 Range/Units 16:28 20:03 22:13 Chloride (96-109) mmol/L Carbon Dioxide (21.6-31.8) mmol/L BUN/Creatinine Ratio (12.00-20.00) Ratio Glucose (70-110) mg/dL POC Glucose (mg/dL) 288 H 275 H 203 H (70-110) mg/dL Calcium (8.7-10.3) mg/dL 10/14/23 10/14/23 10/14/23 Range/Units 04:45 05:58 10:50 Chloride 113 H (96-109) mmol/L Carbon Dioxide 20.1 L (21.6-31.8) mmol/L BUN/Creatinine Ratio 20.11 H (12.00-20.00) Ratio Glucose 126 H (70-110) mg/dL POC Glucose (mg/dL) 122 H 202 H (70-110) mg/dL Calcium 7.9 L (8.7-10.3) mg/dL
--- NOTE | 2023-10-14 13:47 | P.PN ---
Subjective Progress Note Date: 10/14/23 52-year-old male who is seen in the emergency department, October 04, 2023. The patient came in with weakness, mental status changes, and suspected sepsis. The patient recently had a left below the knee amputation, done by Dr. Domínguez, on September 02. 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 The patient was discharged after number days to a local retirement. He came back into the emergency department as mentioned on October 03. He was being treated for a C. difficile infection. He apparently was noted to be febrile, lethargic, and weak, with a low blood pressure. For that reason, he was sent in to the emergency department, and brought in by EMS. I was called by the emergency room physician, who did fluid resuscitation initially, but then started him on some norepinephrine. For that reason, the patient necessitated an admission to the intensive care unit. Currently he is on 2 L of oxygen. He is given D5W with 3 ampoules of sodium bicarb and at 125 cc an hour. His norepinephrine dose is 4 mcg/min. He is currently on IV Flagyl, and oral vancomycin for his C. difficile infection. White count is 21.9, hemoglobin 10.2, hematocrit 32.9, platelet count 199,000. Sodium 139, potassium 4.6, chlorides 119, CO2 9, BUN 99, creatinine 2.96. Glucose is 192. Calcium 8.8, magnesium 2.3. He did test positive here for C. difficile. Chest x-ray is read as normal here. CT of the abdomen and pelvis shows circumferential thickening of the colon throughout its entire length, most compatible with colitis. On today's evaluation of 10/06/2023, the patient is being seen for a follow-up. The patient was moved to the intensive care unit because of ongoing diarrhea and the patient also developed 2 episodes of coffee-ground emesis overnight and the patient is going to undergo an EGD today. The patient is currently on IV Protonix. The patient is NPO. The patient is eating combination IV Flagyl and oral vancomycin regarding acute C. difficile colitis. The patient is currently off pressors. White cell count remains elevated. Remains somewhat encephalopathic although there is improvement in his mentation over the past 12 hours. The white cell count is at 24 with a hemoglobin 9.9 and a platelet count of 198. Sodium is at 140, potassium is 3.8, serum bicarb is improved and is currently up to 21 with a BUN of 80 and a creatinine of 1.9 and the patient is improving in terms of his renal function. The HbA1c is at 7.8. LFTs are normal. Troponins are negative. Most recent blood sugar is 306. The patient is on bicarb infusion which is running at a rate of 125 cc an hour. Serum bicarb is improved. The patient is on Levemir insulin 30 units in the evening and 10 units in the morning along with a NovoLog sliding scale coverage. The patient is currently on oral bicarb supplements. No significant abdominal pain. He does have a large anterior abdominal wall ventral hernia. On 10/07/2023, the patient is being seen for a follow-up. The patient continues to have episodes of diarrhea and the patient remains on a combination of oral vancomycin 500 mg p.o. 4 times daily and IV metronidazole. The patient's abdomen is mildly tender. The white cell count is still elevated at 30.5 with a hemoglobin 10.3 and a platelet count of 65. Creatinine is improving is currently down to 1.64 with a BUN of 78 and a sodium levels at 139. The patient remains on normal saline at a rate of 100 cc an hour. Overnight, the patient had to be placed on pressors and the patient is currently on norepinephrine at 0.05 mcg/kg/min. The patient had a positive fluid balance of 1.8 L over the past 24 hours. The patient underwent an EGD yesterday and the patient was found to have gastritis and biopsies were taken. The patient remains on IV Protonix. Diet will be provided today. Rest of medications remain unchanged. He remains on Levemir 30 units in the evening and 10 units in the morning along with NovoLog 5 units with meals. No other significant events overnight. Blood cultures been negative. General surgery is on the case. 10/08/2023, the patient continues to have liquidy diarrhea. The patient also has some flatulence. Remains on IV Flagyl and oral vancomycin. He is on room air oxygen. White cell count is improving and currently down to 20.5 with a hemoglobin 9.8 and a platelet count of 223. Creatinine is also improving and is down to 1.34 with a BUN of 51. Sodium level is at 137, serum bicarb is at 20. Blood sugars at 282. The patient remains on DuoNeb. Furthermore, the patient was taken off the oral vancomycin the patient was switched to Dificid. Rest of the medication remain unchanged. The patient remains on low-dose pressors and the patient is still requiring low-dose norepinephrine which is running 0.02 mcg/kg/min. IV fluids are in the form of normal saline at rate of 100 cc an hour. This is a medication remains unchanged. He remains on Levemir insulin 30 units at nighttime and 10 units in the morning in addition to sliding scale coverage. He is on Lasix 40 mg p.o. daily. 10/09/2023, I am seeing the patient for a follow-up. This patient is on oral Dificid and IV Flagyl. He was transferred out of the intensive care unit yesterday. He remains hemodynamically stable. White cell count continues to improve and is currently down to 17 with a hemoglobin 9.5. BUN 35 with a creatinine of 1.08 and a sodium levels at 136. Afebrile. Hemodynamically stable. No other significant events overnight. Rest of medications remain unchanged. He remains on IV fluid normal saline at rate of 100 cc an hour. The serum bicarb is currently at 18. On today's evaluation of 10/10/2023, I am seeing the patient for a follow-up. The patient is doing well. No active diarrhea. No nausea vomiting or abdominal pain. Clinically stable. Hemodynamically stable. Serum bicarb is currently at 15 and this was attributed to metabolic acidosis. BUN 30 creatinine 1.2 and sodium is at 136. White cell count is improved and the patient's white cell count is down to 14.7 with a hemoglobin of 9.7. The patient remains on IV Flagy l and oral Dificid for C. difficile colitis. The patient is also receiving bicarb tablets 650 mg p.o. twice a day. The patient remains on room air oxygen. He was able to sit up in a chair today. Calm and comfortable. On today's evaluation of 10/11/2023, patient is stable. No active diarrhea. H emodynamically stable. White cell count is down to 17.5 with a hemoglobin 9.6 and the patient remains on Dificid. The patient remains on room air oxygen. No nausea but no vomiting. No abdominal pain. No chest pain. Rest of the medication shmuel unchanged and the patient remains on oral bicarb supplements. Serum bicarb is at 15 and a sodium levels at 136 with potassium level of 4.1. No other significant events over the night. The patient remains on Lasix 40 mg p.o. daily. Insulin doses remain unchanged. On 10/12/2023, the patient is having liquidy stool 4-6 episodes on a daily basis. Remains on Dificid. Labs from today are still pending. Nevertheless, the patient was started on has been progressive improving and spent down to 15.5. No nausea. No emesis. Serum protein and albumin levels are low and the 4.0 and 1.8 respectively. The patient has developed also scrotal edema evaluated by urology. No other changes in the medication. No edema lower extremities bilaterally. The patient remains on room air oxygen. He was also given Questran 4 g p.o. twice daily. The patient is seen today October 13, 2023 in follow-up on the regular medical floor. He is awake and alert in no acute distress. He is maintaining O2 saturations in the 90s on room air. He denies any worsening shortness of breath, cough or congestion. He is still having ongoing issues with diarrhea. He is in isolation precautions due to his C. difficile colitis. He remains on Dificid. Blood cultures revealed no growth. White count 11.1. Hemoglobin 8.4. Platelets 222. Sodium 136. Potassium 3.5. Bicarb 19. BUN 15. Creatinine 0.89. Glucose 236. He remains on sodium bicarbonate tablets. The patient is seen today October 14, 2023 in follow-up on the regular medical floor. He is currently resting in bed. Awake and alert in no acute distress. Maintaining good O2 saturation in the 90s on room air. No worsening shortness of breath, cough or congestion. He is continuing to have loose bowel movements. Sodium 141. Potassium 3.7. Bicarb 20. BUN 18. Creatinine 0.9. Glucose 126. He is continued on Questran and Dificid. Remains on sodium bicarbonate tablets. Objective - Vital Signs Vital signs: Vital Signs Temp 97.9 F 10/14/23 13:40 Pulse 79 10/14/23 13:40 Resp 16 10/14/23 13:40 BP 122/71 10/14/23 13:40 Pulse Ox 97 10/14/23 13:40 FiO2 40 10/08/23 00:00 Intake & Output 10/13/23 10/14/23 10/14/23 18:59 06:59 18:59 Intake Total 540 Output Total 1799 1974 Balance -1800 -143 Weight 103.4 kg Intake: Oral 540 Output: Urine 1799 1974 Other: Voiding Method Indwelling Catheter Indwelling Catheter # Bowel Movements 9 6 2 ABP, PAP, CO, CI - Last Documented Arterial Blood Pressure 151/81 - Exam GENERAL EXAM: Alert, pleasant 52-year-old male, resting comfortably in bed, on room air, in no apparent distress. HEAD: Normocephalic. EYES: Normal reaction of pupils, equal size. NOSE: Clear with pink turbinates. THROAT: No erythema or exudates. NECK: No masses, no JVD. CHEST: No chest wall deformity. LUNGS: Equal air entry with no crackles, wheeze, rhonchi or dullness. CVS: S1 and S2 normal with no audible murmur, regular rhythm. ABDOMEN: No hepatosplenomegaly, normal bowel sounds, no guarding or rigidity. SPINE: No scoliosis or deformity SKIN: No rashes CENTRAL NERVOUS SYSTEM: No focal deficits, tone is normal in all 4 extremities. EXTREMITIES: Left BKA. There is no peripheral edema. No clubbing, no cyanosis. Peripheral pulses are intact. - Labs CBC & Chem 7: 10/13/23 04:20 10/14/23 04:45 Labs: Abnormal Lab Results - Last 24 Hours (Table) 10/13/23 10/13/23 10/13/23 Range/Units 16:28 20:03 22:13 Chloride (96-109) mmol/L Carbon Dioxide (21.6-31.8) mmol/L BUN/Creatinine Ratio (12.00-20.00) Ratio Glucose (70-110) mg/dL POC Glucose (mg/dL) 288 H 275 H 203 H (70-110) mg/dL Calcium (8.7-10.3) mg/dL 10/14/23 10/14/23 10/14/23 Range/Units 04:45 05:58 10:50 Chloride 113 H (96-109) mmol/L Carbon Dioxide 20.1 L (21.6-31.8) mmol/L BUN/Creatinine Ratio 20.11 H (12.00-20.00) Ratio Glucose 126 H (70-110) mg/dL POC Glucose (mg/dL) 122 H 202 H (70-110) mg/dL Calcium 7.9 L (8.7-10.3) mg/dL Assessment and Plan Assessment: Acute C. difficile colitis, currently on oral Dificid, and completed Flagyl still having diarrhea and white cell is improving and the patient is currently off pressors. Still having liquidy stool with multiple episodes on a daily basis. Sepsis/hypotension, secondary to severe diarrhea, from C. difficile colitis, improved and he is off pressors Acute mental status changes, likely on the basis of septic encephalopathy, improved None anion gap metabolic acidosis, sodium bicarb replacement orally Coffee-ground emesis x 2 and the patient, post EGD that revealed gastritis and the patient is currently on Pepcid Acute leukocytosis, secondary to C. difficile colitis, improving Acute kidney injury, recovered Diabetes mellitus Recent left BKA, September 03, 2023. History of hypertension. History of hyperlipidemia. Nonhealing ulcer, left lower extremity, with subsequent left BKA. Prior history of methicillin-resistant Staph aureus infection, and Proteus mirabilis bacteremia and the patient completed a course of Rocephin and vancomycin on outpatient basis at the [facility]. Large anterior abdominal wall hernia Scrotal edema, being evaluated by urology Plan: The patient was seen and evaluated Labs and medications reviewed Stable and on room air Still having some diarrhea Remains on Dificid Plan is to return to [facility] at discharge I have personally seen and examined the patient, performed the documentation and the assessment and plan as written. Number of minutes spent on the visit: 10.
[2023-10-14 16:40] LABS: Glucose,Whole Blood 238 mg/dL (70-110)
[2023-10-14 20:33] LABS: Glucose,Whole Blood 226 mg/dL (70-110)
[2023-10-14] MEDS: CARBAMIDE PEROXIDE 6.5% DROPS 15 ML BTL LEFT EAR SCH (22:08)
--- NOTE | 2023-10-15 01:28 | PN ---
PROGRESS NOTE SUBJECTIVE: White male, says he is still better. OBJECTIVE: VITAL SIGNS: Temperature 98.9, pulse 80, respiratory rate 16 to 18, pressure 117/70. CARDIOVASCULAR: S1, S2. LUNG: Transmitted upper sounds. HEMATOLOGY: Negative for Homans. PSYCH: Fair mood and affect. Recommendations from fluids improved. Blood cultures are negative. Prognosis guarded. Continue in next 24 to 48 hours. Severe protein-calorie malnutrition, ascites, hypertension with the need for GI recommendation. Prognosis guarded. Continue with albumin and Lasix, PT OT. Prognosis guarded. MMODL / IJN: [id number] /
[2023-10-15 06:00] LABS: Glucose,Whole Blood 111 mg/dL (70-110)
[2023-10-15 11:08] LABS: Glucose,Whole Blood 151 mg/dL (70-110)
--- NOTE | 2023-10-15 12:17 | P.PN ---
Subjective Progress Note Date: 10/15/23 52-year-old male who is seen in the emergency department, October 04, 2023. The patient came in with weakness, mental status changes, and suspected sepsis. The patient recently had a left below the knee amputation, done by Dr. Domínguez, on September 02. 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 The patient was discharged after number days to a local retirement. He came back into the emergency department as mentioned on October 03. He was being treated for a C. difficile infection. He apparently was noted to be febrile, lethargic, and weak, with a low blood pressure. For that reason, he was sent in to the emergency department, and brought in by EMS. I was called by the emergency room physician, who did fluid resuscitation initially, but then started him on some norepinephrine. For that reason, the patient necessitated an admission to the intensive care unit. Currently he is on 2 L of oxygen. He is given D5W with 3 ampoules of sodium bicarb and at 125 cc an hour. His norepinephrine dose is 4 mcg/min. He is currently on IV Flagyl, and oral vancomycin for his C. difficile infection. White count is 21.9, hemoglobin 10.2, hematocrit 32.9, platelet count 199,000. Sodium 139, potassium 4.6, chlorides 119, CO2 9, BUN 99, creatinine 2.96. Glucose is 192. Calcium 8.8, magnesium 2.3. He did test positive here for C. difficile. Chest x-ray is read as normal here. CT of the abdomen and pelvis shows circumferential thickening of the colon throughout its entire length, most compatible with colitis. On today's evaluation of 10/06/2023, the patient is being seen for a follow-up. The patient was moved to the intensive care unit because of ongoing diarrhea and the patient also developed 2 episodes of coffee-ground emesis overnight and the patient is going to undergo an EGD today. The patient is currently on IV Protonix. The patient is NPO. The patient is eating combination IV Flagyl and oral vancomycin regarding acute C. difficile colitis. The patient is currently off pressors. White cell count remains elevated. Remains somewhat encephalopathic although there is improvement in his mentation over the past 12 hours. The white cell count is at 24 with a hemoglobin 9.9 and a platelet count of 198. Sodium is at 140, potassium is 3.8, serum bicarb is improved and is currently up to 21 with a BUN of 80 and a creatinine of 1.9 and the patient is improving in terms of his renal function. The HbA1c is at 7.8. LFTs are normal. Troponins are negative. Most recent blood sugar is 306. The patient is on bicarb infusion which is running at a rate of 125 cc an hour. Serum bicarb is improved. The patient is on Levemir insulin 30 units in the evening and 10 units in the morning along with a NovoLog sliding scale coverage. The patient is currently on oral bicarb supplements. No significant abdominal pain. He does have a large anterior abdominal wall ventral hernia. On 10/07/2023, the patient is being seen for a follow-up. The patient continues to have episodes of diarrhea and the patient remains on a combination of oral vancomycin 500 mg p.o. 4 times daily and IV metronidazole. The patient's abdomen is mildly tender. The white cell count is still elevated at 30.5 with a hemoglobin 10.3 and a platelet count of 65. Creatinine is improving is currently down to 1.64 with a BUN of 78 and a sodium levels at 139. The patient remains on normal saline at a rate of 100 cc an hour. Overnight, the patient had to be placed on pressors and the patient is currently on norepinephrine at 0.05 mcg/kg/min. The patient had a positive fluid balance of 1.8 L over the past 24 hours. The patient underwent an EGD yesterday and the patient was found to have gastritis and biopsies were taken. The patient remains on IV Protonix. Diet will be provided today. Rest of medications remain unchanged. He remains on Levemir 30 units in the evening and 10 units in the morning along with NovoLog 5 units with meals. No other significant events overnight. Blood cultures been negative. General surgery is on the case. 10/08/2023, the patient continues to have liquidy diarrhea. The patient also has some flatulence. Remains on IV Flagyl and oral vancomycin. He is on room air oxygen. White cell count is improving and currently down to 20.5 with a hemoglobin 9.8 and a platelet count of 223. Creatinine is also improving and is down to 1.34 with a BUN of 51. Sodium level is at 137, serum bicarb is at 20. Blood sugars at 282. The patient remains on DuoNeb. Furthermore, the patient was taken off the oral vancomycin the patient was switched to Dificid. Rest of the medication remain unchanged. The patient remains on low-dose pressors and the patient is still requiring low-dose norepinephrine which is running 0.02 mcg/kg/min. IV fluids are in the form of normal saline at rate of 100 cc an hour. This is a medication remains unchanged. He remains on Levemir insulin 30 units at nighttime and 10 units in the morning in addition to sliding scale coverage. He is on Lasix 40 mg p.o. daily. 10/09/2023, I am seeing the patient for a follow-up. This patient is on oral Dificid and IV Flagyl. He was transferred out of the intensive care unit yesterday. He remains hemodynamically stable. White cell count continues to improve and is currently down to 17 with a hemoglobin 9.5. BUN 35 with a creatinine of 1.08 and a sodium levels at 136. Afebrile. Hemodynamically stable. No other significant events overnight. Rest of medications remain unchanged. He remains on IV fluid normal saline at rate of 100 cc an hour. The serum bicarb is currently at 18. On today's evaluation of 10/10/2023, I am seeing the patient for a follow-up. The patient is doing well. No active diarrhea. No nausea vomiting or abdominal pain. Clinically stable. Hemodynamically stable. Serum bicarb is currently at 15 and this was attributed to metabolic acidosis. BUN 30 creatinine 1.2 and sodium is at 136. White cell count is improved and the patient's white cell count is down to 14.7 with a hemoglobin of 9.7. The patient remains on IV Flagy l and oral Dificid for C. difficile colitis. The patient is also receiving bicarb tablets 650 mg p.o. twice a day. The patient remains on room air oxygen. He was able to sit up in a chair today. Calm and comfortable. On today's evaluation of 10/11/2023, patient is stable. No active diarrhea. H emodynamically stable. White cell count is down to 17.5 with a hemoglobin 9.6 and the patient remains on Dificid. The patient remains on room air oxygen. No nausea but no vomiting. No abdominal pain. No chest pain. Rest of the medication shmuel unchanged and the patient remains on oral bicarb supplements. Serum bicarb is at 15 and a sodium levels at 136 with potassium level of 4.1. No other significant events over the night. The patient remains on Lasix 40 mg p.o. daily. Insulin doses remain unchanged. On 10/12/2023, the patient is having liquidy stool 4-6 episodes on a daily basis. Remains on Dificid. Labs from today are still pending. Nevertheless, the patient was started on has been progressive improving and spent down to 15.5. No nausea. No emesis. Serum protein and albumin levels are low and the 4.0 and 1.8 respectively. The patient has developed also scrotal edema evaluated by urology. No other changes in the medication. No edema lower extremities bilaterally. The patient remains on room air oxygen. He was also given Questran 4 g p.o. twice daily. The patient is seen today October 13, 2023 in follow-up on the regular medical floor. He is awake and alert in no acute distress. He is maintaining O2 saturations in the 90s on room air. He denies any worsening shortness of breath, cough or congestion. He is still having ongoing issues with diarrhea. He is in isolation precautions due to his C. difficile colitis. He remains on Dificid. Blood cultures revealed no growth. White count 11.1. Hemoglobin 8.4. Platelets 222. Sodium 136. Potassium 3.5. Bicarb 19. BUN 15. Creatinine 0.89. Glucose 236. He remains on sodium bicarbonate tablets. The patient is seen today October 14, 2023 in follow-up on the regular medical floor. He is currently resting in bed. Awake and alert in no acute distress. Maintaining good O2 saturation in the 90s on room air. No worsening shortness of breath, cough or congestion. He is continuing to have loose bowel movements. Sodium 141. Potassium 3.7. Bicarb 20. BUN 18. Creatinine 0.9. Glucose 126. He is continued on Questran and Dificid. Remains on sodium bicarbonate tablets. The patient is seen today October 15, 2023 in follow-up on the regular medical floor. He is awake and alert in no acute distress. Resting in bed. He is continuing to have issues with diarrhea. He is having skin breakdown on the buttocks due to the continued diarrhea. He declined fecal management system. He remains on Questran and Dificid. He is maintaining good O2 saturations in the 90s on room air. He has been afebrile. Hemodynamically stable. Glucose 151. Blood cultures revealed no growth. Objective - Vital Signs Vital signs: Vital Signs Temp 98.5 F 10/15/23 07:14 Pulse 87 10/15/23 07:14 Resp 16 10/15/23 07:14 BP 124/76 10/15/23 07:14 Pulse Ox 99 10/15/23 07:14 FiO2 40 10/08/23 00:00 Intake & Output 10/14/23 10/15/23 10/15/23 18:59 06:59 18:59 Output Total 1600 750 Balance -1600 -750 Output: Urine 1600 750 Other: Voiding Method Indwelling Catheter Indwelling Catheter Indwelling Catheter # Voids 4 # Bowel Movements 4 1 2 ABP, PAP, CO, CI - Last Documented Arterial Blood Pressure 151/81 - Exam GENERAL EXAM: Alert, 52-year-old male, resting in bed, on room air, in no apparent distress. HEAD: Normocephalic. EYES: Normal reaction of pupils, equal size. NOSE: Clear with pink turbinates. THROAT: No erythema or exudates. NECK: No masses, no JVD. CHEST: No chest wall deformity. LUNGS: Equal air entry with no crackles, wheeze, rhonchi or dullness. CVS: S1 and S2 normal with no audible murmur, regular rhythm. ABDOMEN: No hepatosplenomegaly, normal bowel sounds, no guarding or rigidity. SPINE: No scoliosis or deformity SKIN: Skin breakdown on the buttocks from continued diarrhea, declines fecal management system. CENTRAL NERVOUS SYSTEM: No focal deficits, tone is normal in all 4 extremities. EXTREMITIES: Left BKA. There is no peripheral edema. No clubbing, no cyanosis. Peripheral pulses are intact. - Labs CBC & Chem 7: 10/13/23 04:20 10/14/23 04:45 Labs: Abnormal Lab Results - Last 24 Hours (Table) 10/14/23 10/14/23 10/15/23 Range/Units 16:39 20:01 05:38 POC Glucose (mg/dL) 238 H 226 H 111 H (70-110) mg/dL 10/15/23 Range/Units 11:07 POC Glucose (mg/dL) 151 H (70-110) mg/dL Assessment and Plan Assessment: Acute C. difficile colitis, currently on oral Dificid, and completed Flagyl sti ll having diarrhea and white cell is improving. Still having liquidy stool with multiple episodes on a daily basis. Refusing fecal management system Sepsis/hypotension, secondary to severe diarrhea, from C. difficile colitis, improved and he is off pressors Acute mental status changes, likely on the basis of septic encephalopathy, improved None anion gap metabolic acidosis, sodium bicarb replacement orally Coffee-ground emesis x 2 and the patient, post EGD that revealed gastritis and the patient is currently on Pepcid Acute leukocytosis, secondary to C. difficile colitis, improving Acute kidney injury, recovered Diabetes mellitus Recent left BKA, September 03, 2023. History of hypertension. History of hyperlipidemia. Nonhealing ulcer, left lower extremity, with subsequent left BKA. Prior history of methicillin-resistant Staph aureus infection, and Proteus mirabilis bacteremia and the patient completed a course of Rocephin and vancomycin on outpatient basis at the [facility]. Large anterior abdominal wall hernia Scrotal edema, being evaluated by urology Plan: The patient was seen and evaluated Medications reviewed Still having some diarrhea Declines fecal management system Remains on Dificid Plan is to return to [facility] I have personally seen and examined the patient, performed the documentation and the assessment and plan as written. Number of minutes spent on the visit: 10.
--- NOTE | 2023-10-15 12:19 | P.PN ---
Subjective Patient is seen in follow-up for acute kidney injury. Renal function improved. Still having loose bowel movements. No vomiting. Oral intake fair. Vital signs are stable. General: No acute distress. HEENT: Head exam is unremarkable. LUNGS: No audible rhonchi or wheezes. HEART: Rate and Rhythm are regular. ABDOMEN: Nontender. EXTREMITITES: 1+ edema. Left BKA noted. Objective - Vital Signs Vital signs: Vital Signs Temp 98.5 F 10/15/23 07:14 Pulse 87 10/15/23 07:14 Resp 16 10/15/23 07:14 BP 124/76 10/15/23 07:14 Pulse Ox 99 10/15/23 07:14 FiO2 40 10/08/23 00:00 Intake & Output 10/14/23 10/15/23 10/15/23 18:59 06:59 18:59 Output Total 1600 750 Balance -1600 -750 Output: Urine 1600 750 Other: Voiding Method Indwelling Catheter Indwelling Catheter Indwelling Catheter # Voids 4 # Bowel Movements 4 1 2 ABP, PAP, CO, CI - Last Documented Arterial Blood Pressure 151/81 - Labs CBC & Chem 7: 10/13/23 04:20 10/14/23 04:45 Labs: Abnormal Lab Results - Last 24 Hours (Table) 10/14/23 10/14/23 10/15/23 Range/Units 16:39 20:01 05:38 POC Glucose (mg/dL) 238 H 226 H 111 H (70-110) mg/dL 10/15/23 Range/Units 11:07 POC Glucose (mg/dL) 151 H (70-110) mg/dL Assessment and Plan Plan: Assessment: 1. Acute kidney injury secondary to ATN secondary to hypotension and hypovo lemia. Creatinine 4.38 dated October 01, 2023 and improved to 0.9 as of yesterday. Baseline creatinine near 1. No hydronephrosis noted on CT. UA fairly benign. 2. C. difficile colitis maintained on Dificid. Also on Questran. 3. Metabolic acidosis secondary to acute kidney injury and GI losses. On oral bicarb. Better. 4. Septic shock. Now off vasopressors. 5. Lower extremity edema maintained on oral Lasix. Plan: Encouraged oral intake. Avoid nephrotoxins. Continue to monitor renal function and urine output. Repeat labs in the morning.
--- NOTE | 2023-10-15 13:29 | P.PN ---
Subjective Progress Note Date: 10/15/23 CHIEF COMPLAINT: C. difficile colitis HISTORY OF PRESENT ILLNESS: Patient admitted with C. difficile colitis with sepsis. Patient continues to report diarrhea. Denies any abdominal pain. He does report bloating. Denies any nausea or vomiting. Afebrile. PHYSICAL EXAM: VITAL SIGNS: Reviewed. GENERAL: no acute distress. ABDOMEN: Soft. Distended. Nontender. large Ventral hernia is reducible NEUROLOGIC: Alert and oriented. Cranial nerves II through XII grossly intact. ASSESSMENT: 1. C. difficile colitis 2. Coffee-ground emesis status post EGD revealing gastritis PLAN: -No surgical intervention planned -Continue C. difficile treatment -Continue to monitor Physician Apparatus Engineering Technologist note has been reviewed by physician. Signing provider agrees with the documented findings, assessment, and plan of care. Objective - Vital Signs Vital signs: Vital Signs Temp 97.8 F 10/15/23 13:22 Pulse 80 10/15/23 13:22 Resp 17 10/15/23 13:22 BP 116/71 10/15/23 13:22 Pulse Ox 96 10/15/23 13:22 FiO2 40 10/08/23 00:00 Intake & Output 10/14/23 10/15/23 10/15/23 18:59 06:59 18:59 Output Total 1600 750 Balance -1600 -750 Output: Urine 1600 750 Other: Voiding Method Indwelling Catheter Indwelling Catheter Indwelling Catheter # Voids 4 # Bowel Movements 4 1 2 ABP, PAP, CO, CI - Last Documented Arterial Blood Pressure 151/81 - Labs CBC & Chem 7: 10/13/23 04:20 10/14/23 04:45 Labs: Abnormal Lab Results - Last 24 Hours (Table) 10/14/23 10/14/23 10/15/23 Range/Units 16:39 20:01 05:38 POC Glucose (mg/dL) 238 H 226 H 111 H (70-110) mg/dL 10/15/23 Range/Units 11:07 POC Glucose (mg/dL) 151 H (70-110) mg/dL
--- NOTE | 2023-10-15 14:03 | P.CONS ---
History of Present Illness - Reason for Consult Consult date: 10/15/23 rehab needs - History of Present Illness PMR consult Mr. Romero is a 52 yo right handed, , lives with his in 2nd floor apartment with elevator access. He was at [facility] for a day or so for rehab after his left BKA before recent admission. He was admitted October 04, 2023, came in with weakness, mental status changes, and suspected sepsis. The patient recently had a left below the knee amputation, done by Dr. Domínguez, on September 02. 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 The patient was discharged after number days to a local senior care. He was being treated for a C. difficile infection. On today's evaluation of 10/06/2023, the patient is being seen for a follow-up. The patient was moved to the intensive care unit because of ongoing diarrhea and the patient also developed 2 episodes of coffee-ground emesis overnight and the patient is going to undergo an EGD today. The patient is currently on IV Protonix. The patient is NPO. The patient is eating combination IV Flagyl and oral vancomycin regarding acute C. difficile colitis. On 10/12/2023, the patient is having liquidy stool 4-6 episodes on a daily basis. Remains on Dificid. Labs from today are still pending. Nevertheless, the patient was started on has been progressive improving and spent down to 15.5. No nausea. No emesis. Serum protein and albumin levels are low and the 4.0 and 1.8 respectively. The patient has developed also scrotal edema evaluated by urology. The patient is seen today October 13, 2023 in follow-up on the regular medical floor. He is awake and alert in no acute distress. He is maintaining O2 saturations in the 90s on room air. He denies any worsening shortness of breath, cough or congestion. He is still having ongoing issues with diarrhea. He is in isolation precautions due to his C. difficile colitis. He remains on Dificid. The patient is seen today October 15, 2023 in follow-up on the regular medical floor. He is awake and alert in no acute distress. Resting in bed. He is continuing to have issues with diarrhea. He is having skin breakdown on the buttocks due to the continued diarrhea. He declined fecal management system. He remains on Questran and Dificid. He is maintaining good O2 saturations in the 90s on room air. He has been afebrile. Hemodynamically stable. Glucose 151. Blood cultures revealed no growth. PMR Consulted for rehab needs. Today he still has diarrhea, loose stools, is tired, has cough, some abdominal pain. He has bilateral leg pain from his neuropathy. Denies MEHTA, CP, SOB. Seen by therapies on 10/12, min A bed mobiilty, max A transfers, bathing, and Dep toileting. Review of Systems + per above, o/w all systems reviewed negative Past Medical History Past Medical History: Diabetes Mellitus, Hyperlipidemia, Hypertension Additional Past Medical History / Comment(s): STATES SORE ON THE BOTTOM OF LEFT FOOT. 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 Past Psychological History: Anxiety Smoking Status: Former smoker Past Alcohol Use History: Occasional Past Drug Use History: None Reported - Past Family History Mother Family Medical History: Diabetes Mellitus Father Family Medical History: Cancer Medications and Allergies Home Medications Medication Instructions Recorded Confirmed Type HYDROcodone/APAP 7.5-325MG [[place] 1 tab PO Q4H PRN 11/09/21 10/04/23 History 7.5-325] Simvastatin [Zocor] 20 mg PO HS 11/09/21 10/04/23 History sitaGLIPtin [Januvia] 100 mg PO DAILY 11/09/21 10/04/23 History Famotidine 20 mg PO HS 07/01/22 10/04/23 History Sevelamer [Renvela] 800 mg PO W/SUPPER 07/01/22 10/04/23 History Ergocalciferol [Vitamin D2 (1250 1,250 mcg PO TU 10/01/22 10/04/23 History Mcg = 29806 Iu)] Furosemide [Lasix] 40 mg PO DAILY 05/14/23 10/04/23 History Multivitamins, Thera [Multivitamin 1 tab PO DAILY 05/14/23 10/04/23 History (formulary)] Pregabalin [Lyrica] 200 mg PO TID 05/14/23 10/04/23 History ALPRAZolam [Xanax] 0.25 mg PO Q6HR PRN tab 09/05/23 10/04/23 Rx Metoprolol Tartrate [Lopressor] 25 mg PO BID tab 09/05/23 10/04/23 Rx Pioglitazone [Actos] 30 mg PO DAILY tab 09/05/23 10/04/23 Rx Tamsulosin [Flomax] 0.4 mg PO DAILY cap 09/05/23 10/04/23 Rx Cholestyramine (with Sugar) 4 gm PO HS 10/04/23 10/04/23 History [Questran] Ferrous Sulfate [Feosol] 325 mg PO DAILY@0800 10/04/23 10/04/23 History HYDROcodone/APAP 10-325MG [[place] 1 tab PO Q6HR PRN 10/04/23 10/04/23 History 10-325] INSULIN ASPART (NovoLOG) [NovoLOG 15 unit SQ AC-TID 10/04/23 10/04/23 History (formulary)] Insulin Detemir [Levemir Flexpen] 10 unit SQ DAILY 10/04/23 10/04/23 History Insulin Detemir [Levemir Flexpen] 30 units SQ HS 10/04/23 10/04/23 History Ipratropium-Albuterol Nebulize 3 ml INHALATION RT-Q6H PRN 10/04/23 10/04/23 History [Duoneb 0.5 mg-3 mg/3 ml Soln] L.acidoph,Paracasei, B.lactis 1 cap PO BID 10/04/23 10/04/23 History [Probiotic] Loperamide HCl [Imodium A-D] 2 - 4 mg PO QID PRN 10/04/23 10/04/23 History Naloxone HCl [Narcan] 4 mg NASAL DIRECTED PRN 10/04/23 10/04/23 History Ondansetron [Zofran] 4 mg PO Q8H PRN 10/04/23 10/04/23 History Psyllium Husk (with Sugar) 1 tbsp PO HS 10/04/23 10/04/23 History [Metamucil Powder] Sodium Bicarbonate Tab 650 mg PO BID@0800,1600 10/04/23 10/04/23 History metroNIDAZOLE [Flagyl] 500 mg PO TID@0800,1200,1800 10/04/23 10/04/23 History Allergies Allergy/AdvReac Type Severity Reaction Status Date / Time No Known Allergies Allergy Verified 10/04/23 15:00 Physical Exam Vitals: Vital Signs Temp Pulse Resp BP Pulse Ox 10/15/23 13:22 97.8 F 80 17 116/71 96 10/15/23 07:14 98.5 F 87 16 124/76 99 10/15/23 02:00 99.2 F 75 107/65 96 10/14/23 20:00 98.9 F 80 117/73 97 Intake and Output 10/14/23 10/15/23 10/15/23 22:59 06:59 14:59 Output Total 1600 750 Balance -1600 -750 Output: Urine 1600 750 Other: Voiding Method Indwelling Catheter Indwelling Catheter # Voids 4 # Bowel Movements 1 1 2 GENERAL EXAM: Alert, resting in bed, on room air, in no apparent distress. HEAD: Normocephalic. EYES: Normal reaction of pupils, equal size. LUNGS: Non-labored respirations HEART: Regular rate ABDOMEN: Soft, nt/nd NEURO: A&Ox4 Speech fluent, follows 3 step commands CHU x4 >3+ EXTREMITIES: Left BKA. + right LE edema Results CBC & Chem 7: 10/13/23 04:20 10/14/23 04:45 Labs: Abnormal Lab Results - Last 24 Hours (Table) 10/14/23 10/14/23 10/15/23 Range/Units 16:39 20:01 05:38 POC Glucose (mg/dL) 238 H 226 H 111 H (70-110) mg/dL 10/15/23 Range/Units 11:07 POC Glucose (mg/dL) 151 H (70-110) mg/dL Assessment and Plan Assessment: Assessment: Decline in function - cotninue therapies Acute C. difficile colitis, currently on oral Dificid, and completed Flagyl still having diarrhea and white cell is improving. Still having liquidy stool with multiple episodes on a daily basis. Refusing fecal management system Sepsis/hypotension, secondary to severe diarrhea, from C. difficile colitis, improved and he is off pressors Acute mental status changes, likely on the basis of septic encephalopathy, improved Coffee-ground emesis x 2 and the patient, post EGD that revealed gastritis and the patient is currently on Pepcid Acute leukocytosis, secondary to C. difficile colitis, improving Acute kidney injury, recovered Recent left BKA, September 03, 2023. Diabetes mellitus with history of neuropathy. Prior history of methicillin-resistant Staph aureus infection, and Proteus mirabilis bacteremia and the patient completed a course of Rocephin and vancomycin on outpatient basis at the [facility]. Large anterior abdominal wall hernia Scrotal edema, being evaluated by urology Recommendations: - per your medical management - continue therapies Patient is more appropriate for JERILYN when medically stable.
--- NOTE | 2023-10-15 15:54 | CDI ---
Documentation Clarification Form Date: 10/15/2023 03:18:00 PM From: Odessa Nelson RN, CCDS Phone: [phone] Admit Date: 10/04/2023 05:23:00 PM Patient Name: Devon Romero Visit Number: [id number] Discharge Date: ATTENTION: The Clinical Documentation Specialists (CDI) and [facility] Coding Staff appreciate your assistance in clarifying documentation. Please respond to the clarification below the line at the bottom and electronically sign. The CDI & [facility] Coding staff will review the response and follow-up if needed. Please note: Queries are made part of the Legal Health Record. If you have any questions, please contact the author of this message via ITS. Dr. [place] Severe protein-calorie malnutrition is documented in the attending progress notes starting on10/11/23 which may lack sufficient clinical evidence/support in the medical record. Additional clarification is requested. History/Risk Factors: Diabetes Mellitus, Hyperlipidemia, Hypertension Clinical Indicators:52-year-old male presents emergency department for lethargy, hypotension, fever and weakness. He was ruled in for sepsis with c-difficile colitis. He developed scrotal edema secondary to anasarca (low total protein and albumin and ascites. 10/03 Total protein 5.4, Albumin 2.6 Nutritional assessment: Nutrition Intake Good 75-100% Renal Diet Physical findings Overweight, well-nourished s/p below knee amputation Weight 103.4 kg (built in [facility]) 5 ft. 11 in BMI 31.8 Obese Meeting 75% of estimated nutrition al needs Treatment: Ensure Max vanilla TID High protein diet, Monitor PO Please clarify if Severe protein calorie malnutrition is a valid diagnosis? [ ] No, Severe protein calorie malnutrition is ruled out [ ] Yes, Severe protein calorie malnutrition is present as evidence by (additional clinical support): [ ] Other (please specify diagnosis) [ ] Unable to determine (Template Last Revised: September 2023) MTDD
[2023-10-15 16:25] LABS: Glucose,Whole Blood 158 mg/dL (70-110)
[2023-10-15 20:25] LABS: Glucose,Whole Blood 253 mg/dL (70-110)
[2023-10-16 06:38] LABS: Glucose,Whole Blood 99 mg/dL (70-110)
--- NOTE | 2023-10-16 09:39 | PN ---
PROGRESS NOTE DATE OF SERVICE: 10/15/2023 SUBJECTIVE: This is a 52-year-old white male with C Diff, acute kidney injury, scrotal edema secondary to hypoalbuminemia, which dietitian was consulted, maybe he gets some scrotal support. We have been given him IV albumin daily with Lasix IV, which has helped some of the swelling. We are going to possibly continue with that, get protein supplements. Dr. Mendez has him on Dificid for C Diff colitis. He still had 8 bowel movement yesterday. Possibly add Questran on to his protocol for diarrhea. Questran may be 4 mg twice a day. OBJECTIVE: CARDIOVASCULAR: S1, S2. LUNGS: Transmitted upper sounds. GI: Distended. There are no signs of ascites on CAT scan. HEMATOLOGIC: 2+ scrotal edema. ASSESSMENT: 1. He has chronic obstructive pulmonary disease. 2. He has C Diff colitis. 3. Status post amputation. 4. Generalized weakness. 5. Third-spacing of fluids secondary to severe protein-calorie malnutrition. 6. Status post recent amputation of his leg for diabetic wound infection. Continue current treatments, Lasix, albumin. 7. Scrotal edema. Consult Dr. Reyez from [facility]. Try to get him into rehab over at [facility]. MMODL / IJN: [id number] /
[2023-10-16 10:45] LABS: BUN/Creat Ratio 24.56 Ratio (12.00-20.00); Blood Urea Nitrogen 22.1 mg/dL (9.0-27.0); Calcium 8.3 mg/dL (8.7-10.3); Carbon Dioxide 20.7 mmol/L (21.6-31.8); Chloride 113 mmol/L (96-109); Glucose 98 mg/dL (70-110); Magnesium 1.9 mg/dL (1.5-2.4); Potassium 3.9 mmol/L (3.5-5.5); Sodium 143 mmol/L (135-145)
[2023-10-16 10:50] LABS: Basophils # (A) 0.05 X 10*3/uL (0.00-0.10); Basophils % (A) 0.6 %; Eosinophils # (A) 0.23 X 10*3/uL (0.04-0.35); Eosinophils % (A) 2.6 %; HCT 29.1 % (39.6-50.0); HGB 8.9 g/dL (13.0-17.0); Lymphocytes # (A) 1.16 X 10*3/uL (0.90-5.00); Lymphocytes % (A) 13.1 %; MCH 30.2 pg (27.0-32.0); MCHC 30.6 g/dL (32.0-37.0); MCV 98.6 FL (80.0-97.0); Monocytes % (A) 10.2 %; NRBC Per 100 WBC 0 X 10*3/uL (0.00-0.01); Neutrophils # (A) 6.45 X 10*3/uL (1.80-7.70); Platelet Count 275 X 10*3/uL (140-440); RBC 2.95 X 10*6/uL (4.40-5.60); RDW 16.4 % (11.5-14.5); WBC 8.83 X 10*3/uL (4.50-10.00)
--- NOTE | 2023-10-16 11:02 | P.PN ---
Subjective Patient is seen in follow-up for acute kidney injury. Renal function at baseline still having loose bowel movements. No vomiting. Oral intake fair. On oral Lasix. Vital signs are stable. General: No acute distress. HEENT: Head exam is unremarkable. LUNGS: No audible rhonchi or wheezes. HEART: Rate and Rhythm are regular. ABDOMEN: Nontender. EXTREMITITES: 1+ edema. Left BKA noted. Objective - Vital Signs Vital signs: Vital Signs Temp 97.9 F 10/16/23 07:12 Pulse 72 10/16/23 07:12 Resp 18 10/16/23 07:12 BP 112/69 10/16/23 07:12 Pulse Ox 98 10/16/23 07:12 FiO2 40 10/08/23 00:00 Intake & Output 10/15/23 10/16/23 10/16/23 18:59 06:59 18:59 Output Total 1500 1300 1200 Balance -1500 -1300 -1200 Output: Urine 1500 1300 1200 Other: Voiding Method Indwelling Catheter Indwelling Catheter Indwelling Catheter # Bowel Movements 3 7 1 ABP, PAP, CO, CI - Last Documented Arterial Blood Pressure 151/81 - Labs CBC & Chem 7: 10/16/23 07:03 10/16/23 07:03 Labs: Abnormal Lab Results - Last 24 Hours (Table) 10/15/23 10/15/23 10/15/23 Range/Units 11:07 16:23 20:05 RBC (4.40-5.60) X 10*6/uL Hgb (13.0-17.0) g/dL Hct (39.6-50.0) % MCV (80.0-97.0) FL MCHC (32.0-37.0) g/dL RDW (11.5-14.5) % Chloride (96-109) mmol/L Carbon Dioxide (21.6-31.8) mmol/L BUN/Creatinine Ratio (12.00-20.00) Ratio POC Glucose (mg/dL) 151 H 158 H 253 H (70-110) mg/dL Calcium (8.7-10.3) mg/dL 10/16/23 10/16/23 Range/Units 07:03 07:03 RBC 2.95 L (4.40-5.60) X 10*6/uL Hgb 8.9 L (13.0-17.0) g/dL Hct 29.1 L (39.6-50.0) % MCV 98.6 H (80.0-97.0) FL MCHC 30.6 L (32.0-37.0) g/dL RDW 16.4 H (11.5-14.5) % Chloride 113 H (96-109) mmol/L Carbon Dioxide 20.7 L (21.6-31.8) mmol/L BUN/Creatinine Ratio 24.56 H (12.00-20.00) Ratio POC Glucose (mg/dL) (70-110) mg/dL Calcium 8.3 L (8.7-10.3) mg/dL Assessment and Plan Plan: Assessment: 1. Acute kidney injury secondary to ATN secondary to hypotension and hypovolemia. Creatinine 4.38 dated October 01, 2023 and improved to 0.9. No hydronephrosis noted on CT. UA fairly benign. 2. C. difficile colitis maintained on Dificid. Also on Questran. 3. Metabolic acidosis secondary to acute kidney injury and GI losses. On oral bicarb. Better. 4. Septic shock. Now off vasopressors. 5. Lower extremity edema maintained on oral Lasix. Plan: Encouraged oral intake. Avoid nephrotoxins. Continue to monitor renal function and urine output.
[2023-10-16 11:30] LABS: Glucose,Whole Blood 254 mg/dL (70-110)
--- NOTE | 2023-10-16 11:49 | P.PN ---
Subjective Progress Note Date: 10/16/23 52-year-old male who is seen in the emergency department, October 04, 2023. The patient came in with weakness, mental status changes, and suspected sepsis. The patient recently had a left below the knee amputation, done by Dr. Domínguez, on September 02. 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 The patient was discharged after number days to a local long-term. He came back into the emergency department as mentioned on October 03. He was being treated for a C. difficile infection. He apparently was noted to be febrile, lethargic, and weak, with a low blood pressure. For that reason, he was sent in to the emergency department, and brought in by EMS. I was called by the emergency room physician, who did fluid resuscitation initially, but then started him on some norepinephrine. For that reason, the patient necessitated an admission to the intensive care unit. Currently he is on 2 L of oxygen. He is given D5W with 3 ampoules of sodium bicarb and at 125 cc an hour. His norepinephrine dose is 4 mcg/min. He is currently on IV Flagyl, and oral vancomycin for his C. difficile infection. White count is 21.9, hemoglobin 10.2, hematocrit 32.9, platelet count 199,000. Sodium 139, potassium 4.6, chlorides 119, CO2 9, BUN 99, creatinine 2.96. Glucose is 192. Calcium 8.8, magnesium 2.3. He did test positive here for C. difficile. Chest x-ray is read as normal here. CT of the abdomen and pelvis shows circumferential thickening of the colon throughout its entire length, most compatible with colitis. On today's evaluation of 10/06/2023, the patient is being seen for a follow-up. The patient was moved to the intensive care unit because of ongoing diarrhea and the patient also developed 2 episodes of coffee-ground emesis overnight and the patient is going to undergo an EGD today. The patient is currently on IV Protonix. The patient is NPO. The patient is eating combination IV Flagyl and oral vancomycin regarding acute C. difficile colitis. The patient is currently off pressors. White cell count remains elevated. Remains somewhat encephalopathic although there is improvement in his mentation over the past 12 hours. The white cell count is at 24 with a hemoglobin 9.9 and a platelet count of 198. Sodium is at 140, potassium is 3.8, serum bicarb is improved and is currently up to 21 with a BUN of 80 and a creatinine of 1.9 and the patient is improving in terms of his renal function. The HbA1c is at 7.8. LFTs are normal. Troponins are negative. Most recent blood sugar is 306. The patient is on bicarb infusion which is running at a rate of 125 cc an hour. Serum bicarb is improved. The patient is on Levemir insulin 30 units in the evening and 10 units in the morning along with a NovoLog sliding scale coverage. The patient is currently on oral bicarb supplements. No significant abdominal pain. He does have a large anterior abdominal wall ventral hernia. On 10/07/2023, the patient is being seen for a follow-up. The patient continues to have episodes of diarrhea and the patient remains on a combination of oral vancomycin 500 mg p.o. 4 times daily and IV metronidazole. The patient's abdomen is mildly tender. The white cell count is still elevated at 30.5 with a hemoglobin 10.3 and a platelet count of 65. Creatinine is improving is currently down to 1.64 with a BUN of 78 and a sodium levels at 139. The patient remains on normal saline at a rate of 100 cc an hour. Overnight, the patient had to be placed on pressors and the patient is currently on norepinephrine at 0.05 mcg/kg/min. The patient had a positive fluid balance of 1.8 L over the past 24 hours. The patient underwent an EGD yesterday and the patient was found to have gastritis and biopsies were taken. The patient remains on IV Protonix. Diet will be provided today. Rest of medications remain unchanged. He remains on Levemir 30 units in the evening and 10 units in the morning along with NovoLog 5 units with meals. No other significant events overnight. Blood cultures been negative. General surgery is on the case. 10/08/2023, the patient continues to have liquidy diarrhea. The patient also has some flatulence. Remains on IV Flagyl and oral vancomycin. He is on room air oxygen. White cell count is improving and currently down to 20.5 with a hemoglobin 9.8 and a platelet count of 223. Creatinine is also improving and is down to 1.34 with a BUN of 51. Sodium level is at 137, serum bicarb is at 20. Blood sugars at 282. The patient remains on DuoNeb. Furthermore, the patient was taken off the oral vancomycin the patient was switched to Dificid. Rest of the medication remain unchanged. The patient remains on low-dose pressors and the patient is still requiring low-dose norepinephrine which is running 0.02 mcg/kg/min. IV fluids are in the form of normal saline at rate of 100 cc an hour. This is a medication remains unchanged. He remains on Levemir insulin 30 units at nighttime and 10 units in the morning in addition to sliding scale coverage. He is on Lasix 40 mg p.o. daily. 10/09/2023, I am seeing the patient for a follow-up. This patient is on oral Dificid and IV Flagyl. He was transferred out of the intensive care unit yesterday. He remains hemodynamically stable. White cell count continues to improve and is currently down to 17 with a hemoglobin 9.5. BUN 35 with a creatinine of 1.08 and a sodium levels at 136. Afebrile. Hemodynamically stable. No other significant events overnight. Rest of medications remain unchanged. He remains on IV fluid normal saline at rate of 100 cc an hour. The serum bicarb is currently at 18. On today's evaluation of 10/10/2023, I am seeing the patient for a follow-up. The patient is doing well. No active diarrhea. No nausea vomiting or abdominal pain. Clinically stable. Hemodynamically stable. Serum bicarb is currently at 15 and this was attributed to metabolic acidosis. BUN 30 creatinine 1.2 and sodium is at 136. White cell count is improved and the patient's white cell count is down to 14.7 with a hemoglobin of 9.7. The patient remains on IV Flagy l and oral Dificid for C. difficile colitis. The patient is also receiving bicarb tablets 650 mg p.o. twice a day. The patient remains on room air oxygen. He was able to sit up in a chair today. Calm and comfortable. On today's evaluation of 10/11/2023, patient is stable. No active diarrhea. H emodynamically stable. White cell count is down to 17.5 with a hemoglobin 9.6 and the patient remains on Dificid. The patient remains on room air oxygen. No nausea but no vomiting. No abdominal pain. No chest pain. Rest of the medication shmuel unchanged and the patient remains on oral bicarb supplements. Serum bicarb is at 15 and a sodium levels at 136 with potassium level of 4.1. No other significant events over the night. The patient remains on Lasix 40 mg p.o. daily. Insulin doses remain unchanged. On 10/12/2023, the patient is having liquidy stool 4-6 episodes on a daily basis. Remains on Dificid. Labs from today are still pending. Nevertheless, the patient was started on has been progressive improving and spent down to 15.5. No nausea. No emesis. Serum protein and albumin levels are low and the 4.0 and 1.8 respectively. The patient has developed also scrotal edema evaluated by urology. No other changes in the medication. No edema lower extremities bilaterally. The patient remains on room air oxygen. He was also given Questran 4 g p.o. twice daily. The patient is seen today October 13, 2023 in follow-up on the regular medical floor. He is awake and alert in no acute distress. He is maintaining O2 saturations in the 90s on room air. He denies any worsening shortness of breath, cough or congestion. He is still having ongoing issues with diarrhea. He is in isolation precautions due to his C. difficile colitis. He remains on Dificid. Blood cultures revealed no growth. White count 11.1. Hemoglobin 8.4. Platelets 222. Sodium 136. Potassium 3.5. Bicarb 19. BUN 15. Creatinine 0.89. Glucose 236. He remains on sodium bicarbonate tablets. The patient is seen today October 14, 2023 in follow-up on the regular medical floor. He is currently resting in bed. Awake and alert in no acute distress. Maintaining good O2 saturation in the 90s on room air. No worsening shortness of breath, cough or congestion. He is continuing to have loose bowel movements. Sodium 141. Potassium 3.7. Bicarb 20. BUN 18. Creatinine 0.9. Glucose 126. He is continued on Questran and Dificid. Remains on sodium bicarbonate tablets. The patient is seen today October 15, 2023 in follow-up on the regular medical floor. He is awake and alert in no acute distress. Resting in bed. He is continuing to have issues with diarrhea. He is having skin breakdown on the buttocks due to the continued diarrhea. He declined fecal management system. He remains on Questran and Dificid. He is maintaining good O2 saturations in the 90s on room air. He has been afebrile. Hemodynamically stable. Glucose 151. Blood cultures revealed no growth. The patient is seen today October 16, 2023 in follow-up on the regular medical floor. He is currently resting in bed. Awake and alert in no acute distress. He is maintaining O2 saturations in the 90s on room air. He is afebrile. Hemodynamically stable. He is still having issues with diarrhea. He still declines a fecal management system. He is having some breakdown of the skin on his buttocks. Blood cultures revealed no growth. White count 8.8. Hemoglobin 8.9. Platelets 275. Sodium 143. Potassium 3.9. Bicarb 21. BUN 22. Creatinine 0.9. Glucose 98. He remains on Dificid. Objective - Vital Signs Vital signs: Vital Signs Temp 97.9 F 10/16/23 07:12 Pulse 72 10/16/23 07:12 Resp 18 10/16/23 07:12 BP 112/69 10/16/23 07:12 Pulse Ox 98 10/16/23 07:12 FiO2 40 10/08/23 00:00 Intake & Output 10/15/23 10/16/23 10/16/23 18:59 06:59 18:59 Output Total 1500 1300 1200 Balance -1500 -1300 -1200 Output: Urine 1500 1300 1200 Other: Voiding Method Indwelling Catheter Indwelling Catheter Indwelling Catheter # Bowel Movements 3 7 1 ABP, PAP, CO, CI - Last Documented Arterial Blood Pressure 151/81 - Exam GENERAL EXAM: Alert, weak 52-year-old male, on room air, in no apparent distress. HEAD: Normocephalic. EYES: Normal reaction of pupils, equal size. NOSE: Clear with pink turbinates. THROAT: No erythema or exudates. NECK: No masses, no JVD. CHEST: No chest wall deformity. LUNGS: Equal air entry with no crackles, wheeze, rhonchi or dullness. CVS: S1 and S2 normal with no audible murmur, regular rhythm. ABDOMEN: No hepatosplenomegaly, normal bowel sounds, no guarding or rigidity. SPINE: No scoliosis or deformity SKIN: Skin breakdown on the buttocks from continued diarrhea, declines fecal management system. CENTRAL NERVOUS SYSTEM: No focal deficits, tone is normal in all 4 extremities. EXTREMITIES: Left BKA. There is no peripheral edema. No clubbing, no cyanosis. Peripheral pulses are intact. - Labs CBC & Chem 7: 10/16/23 07:03 10/16/23 07:03 Labs: Abnormal Lab Results - Last 24 Hours (Table) 10/15/23 10/15/23 10/16/23 Range/Units 16:23 20:05 07:03 RBC (4.40-5.60) X 10*6/uL Hgb (13.0-17.0) g/dL Hct (39.6-50.0) % MCV (80.0-97.0) FL MCHC (32.0-37.0) g/dL RDW (11.5-14.5) % Chloride 113 H (96-109) mmol/L Carbon Dioxide 20.7 L (21.6-31.8) mmol/L BUN/Creatinine Ratio 24.56 H (12.00-20.00) Ratio POC Glucose (mg/dL) 158 H 253 H (70-110) mg/dL Calcium 8.3 L (8.7-10.3) mg/dL 10/16/23 10/16/23 Range/Units 07:03 11:28 RBC 2.95 L (4.40-5.60) X 10*6/uL Hgb 8.9 L (13.0-17.0) g/dL Hct 29.1 L (39.6-50.0) % MCV 98.6 H (80.0-97.0) FL MCHC 30.6 L (32.0-37.0) g/dL RDW 16.4 H (11.5-14.5) % Chloride (96-109) mmol/L Carbon Dioxide (21.6-31.8) mmol/L BUN/Creatinine Ratio (12.00-20.00) Ratio POC Glucose (mg/dL) 254 H (70-110) mg/dL Calcium (8.7-10.3) mg/dL Assessment and Plan Assessment: Acute C. difficile colitis, currently on oral Dificid, and completed Flagyl still having diarrhea. Still having liquidy stool with multiple episodes on a daily basis. Refusing fecal management system Sepsis/hypotension, secondary to severe diarrhea, from C. difficile colitis, improved and he is off pressors Acute mental status changes, likely on the basis of septic encephalopathy, impr fany None anion gap metabolic acidosis, sodium bicarb replacement orally Coffee-ground emesis x 2 and the patient, post EGD that revealed gastritis and the patient is currently on Pepcid Acute leukocytosis, secondary to C. difficile colitis, improved and down to 8.8 Acute kidney injury, recovered and creatinine 0.9 Diabetes mellitus Recent left BKA, September 03, 2023 History of hypertension. History of hyperlipidemia. Nonhealing ulcer, left lower extremity, with subsequent left BKA Prior history of methicillin-resistant Staph aureus infection, and Proteus mirabilis bacteremia and the patient completed a course of Rocephin and vancomycin on outpatient basis at the [facility] Large anterior abdominal wall hernia Scrotal edema, being evaluated by urology Plan: The patient was seen and evaluated Medications reviewed Still having some diarrhea Declines fecal management system Remains on Dificid Plan is to return to [facility] will sign off the case This patient was seen independently by the pulmonary nurse practitioner addressing pulmonary issues I have personally seen and examined the patient, performed the documentation and the assessment and plan as written. Number of minutes spent on the visit: 24
--- NOTE | 2023-10-16 12:50 | P.PN ---
Subjective Progress Note Date: 10/16/23 CHIEF COMPLAINT: C. difficile colitis HISTORY OF PRESENT ILLNESS: Patient admitted with C. difficile colitis with sepsis. Patient continues to report diarrhea with multiple stools. He denies any abdominal pain. He reports some decrease in his abdominal bloating. Denies any nausea or vomiting. Afebrile. WBC 11 down to 8.83 Hgb 8.9 PHYSICAL EXAM: VITAL SIGNS: Reviewed. GENERAL: no acute distress. ABDOMEN: Soft. Distended. Nontender. large Ventral hernia is reducible NEUROLOGIC: Alert and oriented. Cranial nerves II through XII grossly intact. ASSESSMENT: 1. C. difficile colitis 2. Coffee-ground emesis status post EGD revealing gastritis PLAN: -No surgical intervention planned -Continue C. difficile treatment -Continue to monitor Physician Roller Repairer note has been reviewed by physician. Signing provider agrees with the documented findings, assessment, and plan of care. I have personally seen and examined the patient, reviewed the PROPOSITION PLAYER /PAs history, exam and MDM and agree with the assessment and plan as written. Based on total visit time, I have performed more than 50% of the visit. As above: Patient still having diarrhea. Complains of some bloating. Will check two-view abdomen tomorrow. Continue antibiotics per infectious disease. Objective - Vital Signs Vital signs: Vital Signs Temp 97.9 F 10/16/23 07:12 Pulse 72 10/16/23 07:12 Resp 18 10/16/23 07:12 BP 112/69 10/16/23 07:12 Pulse Ox 98 10/16/23 07:12 FiO2 40 10/08/23 00:00 Intake & Output 10/15/23 10/16/23 10/16/23 18:59 06:59 18:59 Output Total 1500 1300 1200 Balance -1500 -1300 -1200 Output: Urine 1500 1300 1200 Other: Voiding Method Indwelling Catheter Indwelling Catheter Indwelling Catheter # Bowel Movements 3 7 2 ABP, PAP, CO, CI - Last Documented Arterial Blood Pressure 151/81 - Labs CBC & Chem 7: 10/16/23 07:03 10/16/23 07:03 Labs: Abnormal Lab Results - Last 24 Hours (Table) 10/15/23 10/15/23 10/16/23 Range/Units 16:23 20:05 07:03 RBC (4.40-5.60) X 10*6/uL Hgb (13.0-17.0) g/dL Hct (39.6-50.0) % MCV (80.0-97.0) FL MCHC (32.0-37.0) g/dL RDW (11.5-14.5) % Chloride 113 H (96-109) mmol/L Carbon Dioxide 20.7 L (21.6-31.8) mmol/L BUN/Creatinine Ratio 24.56 H (12.00-20.00) Ratio POC Glucose (mg/dL) 158 H 253 H (70-110) mg/dL Calcium 8.3 L (8.7-10.3) mg/dL 10/16/23 10/16/23 Range/Units 07:03 11:28 RBC 2.95 L (4.40-5.60) X 10*6/uL Hgb 8.9 L (13.0-17.0) g/dL Hct 29.1 L (39.6-50.0) % MCV 98.6 H (80.0-97.0) FL MCHC 30.6 L (32.0-37.0) g/dL RDW 16.4 H (11.5-14.5) % Chloride (96-109) mmol/L Carbon Dioxide (21.6-31.8) mmol/L BUN/Creatinine Ratio (12.00-20.00) Ratio POC Glucose (mg/dL) 254 H (70-110) mg/dL Calcium (8.7-10.3) mg/dL
[2023-10-16 16:14] LABS: Glucose,Whole Blood 299 mg/dL (70-110)
--- NOTE | 2023-10-16 16:25 | P.PN ---
Subjective Progress Note Date: 10/14/23 Principal diagnosis: Reason for follow-up is C. 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 difficile colitis. On today's evaluation that is 10/14/2023, Patient is afebrile patient is currently on room air and denies having any shortness of breath, the patient de nies any chest pain or any worsening cough, the patient denies any nausea vomiting did not have any abdominal pain still complaining of some loose stool frequency not exactly documented by the nursing staff. No CBC was done today his creatinine 0.9 Objective - Vital Signs Vital signs: Vital Signs Temp 98.7 F 10/14/23 07:30 Pulse 88 10/14/23 07:30 Resp 16 10/14/23 07:30 BP 107/67 10/14/23 07:30 Pulse Ox 95 10/14/23 09:06 FiO2 40 10/08/23 00:00 Intake & Output 10/13/23 10/14/23 10/14/23 18:59 06:59 18:59 Intake Total 540 Output Total 1800 1974 Balance -1800 -1435 Weight 103.4 kg Intake: Oral 540 Output: Urine 1800 1974 Other: Voiding Method Indwelling Catheter Indwelling Catheter # Bowel Movements 9 6 2 ABP, PAP, CO, CI - Last Documented Arterial Blood Pressure 151/81 - Exam Middle-age male lying in bed in no distress Respiratory system unlabored breathing decreased breath sound the base Heart S1-S2 regular Abdominal soft no tenderness Extremities left BKA stump wound is currently dressed no drainage - Labs CBC & Chem 7: 10/16/23 07:03 10/16/23 07:03 Labs: Abnormal Lab Results - Last 24 Hours (Table) 10/13/23 10/13/23 10/13/23 Range/Units 16:28 20:03 22:13 Chloride (96-109) mmol/L Carbon Dioxide (21.6-31.8) mmol/L BUN/Creatinine Ratio (12.00-20.00) Ratio Glucose (70-110) mg/dL POC Glucose (mg/dL) 288 H 275 H 203 H (70-110) mg/dL Calcium (8.7-10.3) mg/dL 10/14/23 10/14/23 10/14/23 Range/Units 04:45 05:58 10:50 Chloride 113 H (96-109) mmol/L Carbon Dioxide 20.1 L (21.6-31.8) mmol/L BUN/Creatinine Ratio 20.11 H (12.00-20.00) Ratio Glucose 126 H (70-110) mg/dL POC Glucose (mg/dL) 122 H 202 H (70-110) mg/dL Calcium 7.9 L (8.7-10.3) mg/dL Assessment and Plan (1) Leukocytosis Current Visit: Yes Status: Acute Code(s): D72.829 - ELEVATED WHITE BLOOD CELL COUNT, UNSPECIFIED SNOMED Code(s): 766703329 (2) C. difficile colitis Current Visit: Yes Status: Acute Code(s): A04.72 - ENTEROCOLITIS D/T CLOSTRIDIUM DIFFICILE, NOT SPCF RECUR SNOMED Code(s): 971790039 Plan: 1patient presented to the hospital with sepsis in this patient who did have hypotension tachycardia low-grade fever and elevated white count medically clear for SIRS/sepsis source is severe C. difficile colitis failing outpatient treatment 2-patient also have left BKA stump wound does not look infected continue with local wound care per the wound care 3-patient white count is trending down as of yesterday we will repeat a CBC still having diarrhea encouraged to increase his probiotic and yogurt intake continue with the Dificid Dictation was produced using [employer] dictation software. please excuse any grammatical, word or spelling errors. Time with Patient: Less than 30
--- NOTE | 2023-10-16 16:25 | P.PN ---
Subjective Progress Note Date: 10/15/23 Principal diagnosis: Reason for follow-up is C. 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 difficile colitis. On today's evaluation that is 10/15/2023, patient has been afebrile, patient is breathing comfortably and is currently on room air, patient denies having any significant cough no chest pain shortness of breath, patient denies nausea vomiting, no abdominal pain still having loose stool. No lab draw today Objective - Vital Signs Vital signs: Vital Signs Temp 98.5 F 10/15/23 07:14 Pulse 87 10/15/23 07:14 Resp 16 10/15/23 07:14 BP 124/76 10/15/23 07:14 Pulse Ox 99 10/15/23 07:14 FiO2 40 10/08/23 00:00 Intake & Output 10/14/23 10/15/23 10/15/23 18:59 06:59 18:59 Output Total 1600 750 Balance -1600 -750 Output: Urine 1600 750 Other: Voiding Method Indwelling Catheter Indwelling Catheter Indwelling Catheter # Voids 4 # Bowel Movements 4 1 2 ABP, PAP, CO, CI - Last Documented Arterial Blood Pressure 151/81 - Exam Middle-age male lying in bed in no distress Respiratory system unlabored breathing decreased breath sound the base Heart S1-S2 regular Abdominal soft no tenderness Extremities left BKA stump wound is currently dressed no drainage - Labs CBC & Chem 7: 10/16/23 07:03 10/16/23 07:03 Labs: Abnormal Lab Results - Last 24 Hours (Table) 10/14/23 10/14/23 10/15/23 Range/Units 16:39 20:01 05:38 POC Glucose (mg/dL) 238 H 226 H 111 H (70-110) mg/dL 10/15/23 Range/Units 11:07 POC Glucose (mg/dL) 151 H (70-110) mg/dL Assessment and Plan (1) Leukocytosis Current Visit: Yes Status: Acute Code(s): D72.829 - ELEVATED WHITE BLOOD CELL COUNT, UNSPECIFIED SNOMED Code(s): 892384058 (2) C. difficile colitis Current Visit: Yes Status: Acute Code(s): A04.72 - ENTEROCOLITIS D/T CLOSTRIDIUM DIFFICILE, NOT SPCF RECUR SNOMED Code(s): 360659796 Plan: 1patient presented to the hospital with sepsis in this patient who did have hypotension tachycardia low-grade fever and elevated white count medically clear for SIRS/sepsis source is severe C. difficile colitis failing outpatient treatment 2-patient also have left BKA stump wound does not look infected continue with local wound care per the wound care 3-patient white count is trending down, still have persistent loose stool despite being on Questran and Dificid will get GI evaluation for any further recommendation Dictation was produced using [employer] dictation software. please excuse any grammatical, word or spelling errors. Time with Patient: Less than 30
--- NOTE | 2023-10-16 16:26 | P.PN ---
Subjective Progress Note Date: 10/16/23 Principal diagnosis: Reason for follow-up is C. 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 difficile colitis. On today's evaluation that is 10/16/2023, Patient is afebrile this morning and denies any chills, patient mention breathing comfortably and is currently on room air, patient denies any chest pain occasional cough patient denies any abdominal pain no vomiting still having loose stool as reported by the nursing staff Patient white count is normalized to 8.83, creatinine 0.9 Objective - Vital Signs Vital signs: Vital Signs Temp 97.7 F 10/16/23 13:21 Pulse 80 10/16/23 13:21 Resp 18 10/16/23 13:21 BP 112/71 10/16/23 13:21 Pulse Ox 98 10/16/23 13:21 FiO2 40 10/08/23 00:00 Intake & Output 10/15/23 10/16/23 10/16/23 18:59 06:59 18:59 Output Total 1500 1300 1800 Balance -1500 -1300 -1800 Weight 103.4 kg Output: Urine 1500 1300 1800 Other: Voiding Method Indwelling Catheter Indwelling Catheter Indwelling Catheter # Bowel Movements 3 7 2 ABP, PAP, CO, CI - Last Documented Arterial Blood Pressure 151/81 - Exam Middle-age male lying in bed in no distress Respiratory system unlabored breathing decreased breath sound the base Heart S1-S2 regular Abdominal soft no tenderness Extremities left BKA stump wound is currently dressed no drainage - Labs CBC & Chem 7: 10/16/23 07:03 10/16/23 07:03 Labs: Abnormal Lab Results - Last 24 Hours (Table) 10/15/23 10/15/23 10/16/23 Range/Units 16:23 20:05 07:03 RBC (4.40-5.60) X 10*6/uL Hgb (13.0-17.0) g/dL Hct (39.6-50.0) % MCV (80.0-97.0) FL MCHC (32.0-37.0) g/dL RDW (11.5-14.5) % Chloride 113 H (96-109) mmol/L Carbon Dioxide 20.7 L (21.6-31.8) mmol/L BUN/Creatinine Ratio 24.56 H (12.00-20.00) Ratio POC Glucose (mg/dL) 158 H 253 H (70-110) mg/dL Calcium 8.3 L (8.7-10.3) mg/dL 10/16/23 10/16/23 Range/Units 07:03 11:28 RBC 2.95 L (4.40-5.60) X 10*6/uL Hgb 8.9 L (13.0-17.0) g/dL Hct 29.1 L (39.6-50.0) % MCV 98.6 H (80.0-97.0) FL MCHC 30.6 L (32.0-37.0) g/dL RDW 16.4 H (11.5-14.5) % Chloride (96-109) mmol/L Carbon Dioxide (21.6-31.8) mmol/L BUN/Creatinine Ratio (12.00-20.00) Ratio POC Glucose (mg/dL) 254 H (70-110) mg/dL Calcium (8.7-10.3) mg/dL Assessment and Plan (1) Leukocytosis Current Visit: Yes Status: Acute Code(s): D72.829 - ELEVATED WHITE BLOOD CELL COUNT, UNSPECIFIED SNOMED Code(s): 455857108 (2) C. difficile colitis Current Visit: Yes Status: Acute Code(s): A04.72 - ENTEROCOLITIS D/T CLOSTRIDIUM DIFFICILE, NOT SPCF RECUR SNOMED Code(s): 291448644 Plan: 1patient presented to the hospital with sepsis in this patient who did have hypotension tachycardia low-grade fever and elevated white count medically clear for SIRS/sepsis source is severe C. difficile colitis failing outpatient treatment 2-patient also have left BKA stump wound does not look infected continue with local wound care per the wound care 3-patient white count has normalized still complaining of significant diarrhea despite being on Questran and Dificid GI has been consulted awaiting their recommendation Dictation was produced using [employer] dictation software. please excuse any grammatical, word or spelling errors. Time with Patient: Less than 30
[2023-10-16] MEDS: BISMUTH SUBSALICYLATE 4,192 MG/240 ML BOTTLE PO SCH (17:12)
[2023-10-16] MEDS: CHOLESTYRAMINE (WITH SUGAR) 4 GM PACKET PO SCH (17:13)
--- NOTE | 2023-10-16 17:20 | P.CONS ---
History of Present Illness - Reason for Consult Consult date: 10/16/23 Persistent diarrhea Requesting physician: Shyanne Mendez - Chief Complaint Weakness, fever - History of Present Illness This is a 52-year-old male with multiple comorbidities including diabetes mellitus, hyperlipidemia, hypertension, peripheral arterial disease status post bypass and left below the knee amputation who was brought in from [facility] on October 04, 2023 for fever, diarrhea with recent C. difficile infection. Patient was admitted to the ICU for concerns for sepsis. He has been admitted to the hospital now for 12 days. He has been followed by infectious disease for his C. difficile colitis and was on oral vancomycin now on oral Dificid 200 mg twice daily that was started on 10/08/2023. He had some improvement in his diarrhea however states that it has returned and he is going about 10 times a day and it is very watery. He is currently on Questran twice a day. He denies any previous colonoscopy and states he does not want colonoscopy and will not have one at this time. States that he has sores on his bottom and is very excoriated. Also apparently during this hospitalization there was reported coffee-ground emesis and he underwent upper endoscopy with general surgery with findings of gastritis. Biopsy with reactive gastropathy with minimal chronic inflammation no H. pylori. He reports some abdominal distention no abdominal pain, no nausea or vomiting. Appetite has been good and he is eating well he states. Review of Systems REVIEW OF SYSTEMS: CARDIOPULMONARY: No chest pain or shortness of breath. Gastrointestinal: Abdominal pain. No nausea or vomiting. No hematemesis, coffee-ground emesis. Diarrhea, watery, multiple times a day. No rectal bleeding, or melena. GENITOURINARY: No dysuria or hematuria. MUSCULOSKELETAL: Reports normal range of motion., Joint pain. Left below the knee amputation. SKIN: No rashes. No jaundice. ENDOCRINE: No chills, fevers. No excessive weight gain or loss. No polydipsia or polyuria. PSYCHIATRIC: Unremarkable. NEUROLOGY: No change in mental status. Denies dizziness, headache. ENT: Vision unremarkable. CONSTITUTIONAL: No recent weight loss. No fever, chills, night sweats. Past Medical History Past Medical History: Diabetes Mellitus, Hyperlipidemia, Hypertension Additional Past Medical History / Comment(s): STATES SORE ON THE BOTTOM OF LEFT FOOT. 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 Past Psychological History: Anxiety Smoking Status: Former smoker Past Alcohol Use History: Occasional Past Drug Use History: None Reported - Past Family History Mother Family Medical History: Diabetes Mellitus Father Family Medical History: Cancer Medications and Allergies Home Medications Medication Instructions Recorded Confirmed Type HYDROcodone/APAP 7.5-325MG [[place] 1 tab PO Q4H PRN 11/09/21 10/04/23 History 7.5-325] Simvastatin [Zocor] 20 mg PO HS 11/09/21 10/04/23 History sitaGLIPtin [Januvia] 100 mg PO DAILY 11/09/21 10/04/23 History Famotidine 20 mg PO HS 07/01/22 10/04/23 History Sevelamer [Renvela] 800 mg PO W/SUPPER 07/01/22 10/04/23 History Ergocalciferol [Vitamin D2 (1250 1,250 mcg PO TU 10/01/22 10/04/23 History Mcg = 37943 Iu)] Furosemide [Lasix] 40 mg PO DAILY 05/14/23 10/04/23 History Multivitamins, Thera [Multivitamin 1 tab PO DAILY 05/14/23 10/04/23 History (formulary)] Pregabalin [Lyrica] 200 mg PO TID 05/14/23 10/04/23 History ALPRAZolam [Xanax] 0.25 mg PO Q6HR PRN tab 09/05/23 10/04/23 Rx Metoprolol Tartrate [Lopressor] 25 mg PO BID tab 09/05/23 10/04/23 Rx Pioglitazone [Actos] 30 mg PO DAILY tab 09/05/23 10/04/23 Rx Tamsulosin [Flomax] 0.4 mg PO DAILY cap 09/05/23 10/04/23 Rx Cholestyramine (with Sugar) 4 gm PO HS 10/04/23 10/04/23 History [Questran] Ferrous Sulfate [Feosol] 325 mg PO DAILY@0800 10/04/23 10/04/23 History HYDROcodone/APAP 10-325MG [[place] 1 tab PO Q6HR PRN 10/04/23 10/04/23 History 10-325] INSULIN ASPART (NovoLOG) [NovoLOG 15 unit SQ AC-TID 10/04/23 10/04/23 History (formulary)] Insulin Detemir [Levemir Flexpen] 10 unit SQ DAILY 10/04/23 10/04/23 History Insulin Detemir [Levemir Flexpen] 30 units SQ HS 10/04/23 10/04/23 History Ipratropium-Albuterol Nebulize 3 ml INHALATION RT-Q6H PRN 10/04/23 10/04/23 History [Duoneb 0.5 mg-3 mg/3 ml Soln] L.acidoph,Paracasei, B.lactis 1 cap PO BID 10/04/23 10/04/23 History [Probiotic] Loperamide HCl [Imodium A-D] 2 - 4 mg PO QID PRN 10/04/23 10/04/23 History Naloxone HCl [Narcan] 4 mg NASAL DIRECTED PRN 10/04/23 10/04/23 History Ondansetron [Zofran] 4 mg PO Q8H PRN 10/04/23 10/04/23 History Psyllium Husk (with Sugar) 1 tbsp PO HS 10/04/23 10/04/23 History [Metamucil Powder] Sodium Bicarbonate Tab 650 mg PO BID@0800,1600 10/04/23 10/04/23 History metroNIDAZOLE [Flagyl] 500 mg PO TID@0800,1200,1800 10/04/23 10/04/23 History Allergies Allergy/AdvReac Type Severity Reaction Status Date / Time No Known Allergies Allergy Verified 10/04/23 15:00 Physical Exam Vitals: Vital Signs Temp Pulse Resp BP Pulse Ox 10/16/23 07:12 97.9 F 72 18 112/69 98 10/16/23 02:08 99.2 F 76 20 105/68 97 10/15/23 20:33 17 10/15/23 13:22 97.8 F 80 17 116/71 96 Intake and Output 10/15/23 10/16/23 10/16/23 22:59 06:59 14:59 Output Total 1500 1300 1200 Balance -1500 -1300 -1200 Output: Urine 1500 1300 1200 Other: Voiding Method Indwelling Catheter Indwelling Catheter # Bowel Movements 3 7 1 General appearance: The patient is alert, oriented, appears in no acute distress. HET: Head is normocephalic and atraumatic. Conjunctiva pink. Sclera anicteric. Neck: Supple without lymphadenopathy. Trachea midline. Heart: Regular. Lungs: Equal expansion, normal respiratory effort. Abdomen: Soft, nontender, nondistended. Skin: No rashes. No jaundice. Extremities: Left lower extremity amputation with dressing. Excuse me Neurological: No focal deficits. Alert and oriented x3. Results CBC & Chem 7: 10/16/23 07:03 10/16/23 07:03 Labs: Abnormal Lab Results - Last 24 Hours (Table) 10/15/23 10/15/23 10/16/23 Range/Units 16:23 20:05 07:03 RBC (4.40-5.60) X 10*6/uL Hgb (13.0-17.0) g/dL Hct (39.6-50.0) % MCV (80.0-97.0) FL MCHC (32.0-37.0) g/dL RDW (11.5-14.5) % Chloride 113 H (96-109) mmol/L Carbon Dioxide 20.7 L (21.6-31.8) mmol/L BUN/Creatinine Ratio 24.56 H (12.00-20.00) Ratio POC Glucose (mg/dL) 158 H 253 H (70-110) mg/dL Calcium 8.3 L (8.7-10.3) mg/dL 10/16/23 Range/Units 07:03 RBC 2.95 L (4.40-5.60) X 10*6/uL Hgb 8.9 L (13.0-17.0) g/dL Hct 29.1 L (39.6-50.0) % MCV 98.6 H (80.0-97.0) FL MCHC 30.6 L (32.0-37.0) g/dL RDW 16.4 H (11.5-14.5) % Chloride (96-109) mmol/L Carbon Dioxide (21.6-31.8) mmol/L BUN/Creatinine Ratio (12.00-20.00) Ratio POC Glucose (mg/dL) (70-110) mg/dL Calcium (8.7-10.3) mg/dL Assessment and Plan (1) Diarrhea Narrative/Plan: 52-year-old male diagnosed end of August with C. difficile colitis treated with oral vancomycin he was hospitalized from subacute rehab with concerns for sepsis possibly secondary to C. difficile. Infectious disease has been following he was transition to Dificid 200 mg twice daily starting 10/08/2023 with recommendations for discharge tomorrow. He has been on Questran he had some improved diarrhea however seems that yesterday began to be more frequent and watery again. This is all likely secondary to C. difficile infection. Once Dificid is completed can repeat C. difficile stool collection. Continue with Questran. Continue with yogurt and can try probiotics. Patient will need colonoscopy at some point. This can be done as an outpatient. Patient is refusing any inpatient colonoscopies at this time. Current Visit: Yes Status: Acute Code(s): R19.7 - DIARRHEA, UNSPECIFIED SNOMED Code(s): 48720177 (2) C. difficile colitis Current Visit: Yes Status: Acute Code(s): A04.72 - ENTEROCOLITIS D/T CLOSTRIDIUM DIFFICILE, NOT SPCF RECUR SNOMED Code(s): 863207297 Plan: 1. Continue symptomatic and supportive care 2. Continue Questran as ordered 3. Encourage yogurt 4. Will add probiotic 5. Continue Dificid per recommendations from infectious disease 6. Recommend repeat C. difficile stool study once Dificid completed 7. Recommend outpatient colonoscopy 8. Diet as tolerated, low fiber diet Thank you for this consultation, we will continue to follow. Dr. Marleen White I agree with the dictator's note, documented as a scribe by Zulema Bond.
[2023-10-16] MEDS: LACTOBACILLUS ACIDOPHILUS/PECT 1 EACH CAPSULE PO SCH (20:59)
[2023-10-16 21:02] LABS: Glucose,Whole Blood 163 mg/dL (70-110)
[2023-10-17] MEDS: HEPARIN SODIUM,PORCINE 5,000 UNIT/ML 1 ML VIAL SQ SCH (00:33)
[2023-10-17 05:41] LABS: Glucose,Whole Blood 93 mg/dL (70-110)
[2023-10-17 08:22] LABS: Basophils % (A) 0 %; Eosinophils # (A) 0.2 k/uL (0-0.7); Eosinophils % (A) 2 %; HCT 32.5 % (39.0-53.0); HGB 9.7 gm/dL (13.0-17.5); Hypochromasia Moderate; Lymphocytes # (A) 1.1 k/uL (1.0-4.8); Lymphocytes % (A) 12 %; MCH 29.5 pg (25.0-35.0); MCV 98.3 fL (80.0-100.0); Macrocytosis Slight; Mean Platelet Volume 8.4; Monocytes # (A) 0.7 k/uL (0-1.0); Monocytes % (A) 8 %; Neutrophils % (A) 76 %; Platelet Count 323 k/uL (150-450); WBC 9.2 k/uL (3.8-10.6)
[2023-10-17 08:29] LABS: African American GFR (CKD) >90 (>60 ml/min/1.73 sqM); Anion Gap 2 mmol/L; Blood Urea Nitrogen 23 mg/dL (9-20); Calcium 8.6 mg/dL (8.4-10.2); Carbon Dioxide 28 mmol/L (22-30); Chloride 109 mmol/L (98-107); Glucose 80 mg/dL (74-99); Non-African American GFR(CKD) >90 (>60 ml/min/1.73 sqM); Sodium 139 mmol/L (137-145)
--- NOTE | 2023-10-17 10:01 | P.PN ---
Subjective Progress Note Date: 10/17/23 Principal diagnosis: Diarrhea, C. difficile This is a 52-year-old male with multiple comorbidities including diabetes mellitus, hyperlipidemia, hypertension, peripheral arterial disease status post bypass and left below the knee amputation who was brought in from [facility] on October 04, 2023 for fever, diarrhea with recent C. difficile infection. Patient was admitted to the ICU for concerns for sepsis. He has been admitted to the hospital now for 12 days. He has been followed by infectious disease for his C. difficile colitis and was on oral vancomycin now on oral Dificid 200 mg twice daily that was started on 10/08/2023. He had some improvement in his diarrhea however states that it has returned and he is going about 10 times a day and it is very watery. He is currently on Questran twice a day. He denies any previous colonoscopy and states he does not want colonoscopy and will not have one at this time. States that he has sores on his bottom and is very excoriated. Also apparently during this hospitalization there was reported coffee-ground emesis and he underwent upper endoscopy with general surgery with findings of gastritis. Biopsy with reactive gastropathy with minimal chronic inflammation no H. pylori. He reports some abdominal distention no abdominal pain, no nausea or vomiting. Appetite has been good and he is eating well he states. 10/17/2023 Patient seen and examined today as a follow-up. He states his diarrhea has improved quite a bit since starting the Pepto-Bismol. He had only 2 bowel movements through the night. Denies any abdominal pain at this time. No nausea or vomiting. He has been afebrile. Objective - Vital Signs Vital signs: Vital Signs Temp 98.0 F 10/17/23 01:22 Pulse 75 10/17/23 01:22 Resp 18 10/17/23 01:22 BP 104/66 10/17/23 01:22 Pulse Ox 98 10/17/23 01:22 FiO2 40 10/08/23 00:00 Intake & Output 10/16/23 10/17/23 10/17/23 18:59 06:59 18:59 Output Total 2400 1000 Balance -2400 -1000 Weight 103.4 kg Output: Urine 2400 1000 Other: Voiding Method Indwelling Catheter Indwelling Catheter # Bowel Movements 1 3 ABP, PAP, CO, CI - Last Documented Arterial Blood Pressure 151/81 - Exam General appearance: The patient is alert, oriented, appears in no acute distres s. HET: Head is normocephalic and atraumatic. Conjunctiva pink. Sclera anicteric. Neck: Supple without lymphadenopathy. Abdomen: Soft, nontender, nondistended with bowel sounds. No guarding or rigidity. Extremities: Normal skin color and turgor. Left BKA. Skin: No rashes, no jaundice Neurological: No focal deficits. Alert and oriented. - Labs CBC & Chem 7: 10/17/23 07:45 10/17/23 07:45 Labs: Abnormal Lab Results - Last 24 Hours (Table) 10/16/23 10/16/23 10/16/23 Range/Units 07:03 07:03 11:28 RBC 2.95 L (4.40-5.60) X 10*6/uL Hgb 8.9 L (13.0-17.0) g/dL Hct 29.1 L (39.6-50.0) % MCV 98.6 H (80.0-97.0) FL MCHC 30.6 L (32.0-37.0) g/dL RDW 16.4 H (11.5-14.5) % Chloride 113 H (96-109) mmol/L Carbon Dioxide 20.7 L (21.6-31.8) mmol/L BUN/Creatinine Ratio 24.56 H (12.00-20.00) Ratio POC Glucose (mg/dL) 254 H (70-110) mg/dL Calcium 8.3 L (8.7-10.3) mg/dL 10/16/23 10/16/23 Range/Units 16:13 21:00 RBC (4.40-5.60) X 10*6/uL Hgb (13.0-17.0) g/dL Hct (39.6-50.0) % MCV (80.0-97.0) FL MCHC (32.0-37.0) g/dL RDW (11.5-14.5) % Chloride (96-109) mmol/L Carbon Dioxide (21.6-31.8) mmol/L BUN/Creatinine Ratio (12.00-20.00) Ratio POC Glucose (mg/dL) 299 H 163 H (70-110) mg/dL Calcium (8.7-10.3) mg/dL Assessment and Plan (1) Diarrhea Narrative/Plan: 52-year-old male diagnosed end of August with C. difficile colitis treated with oral vancomycin he was hospitalized from subacute rehab with concerns for sepsis possibly secondary to C. difficile. Infectious disease has been following he was transition to Dificid 200 mg twice daily starting 10/08/2023 with recommendations for discharge tomorrow. He has been on Questran he had some improved diarrhea however seems that yesterday began to be more frequent and w atery again. This is all likely secondary to C. difficile infection. Once Dificid is completed can repeat C. difficile stool collection. Continue with Questran. Continue with yogurt and can try probiotics. Patient will need colonoscopy at some point. This can be done as an outpatient. Patient is refusing any inpatient colonoscopies at this time. Current Visit: Yes Status: Acute Code(s): R19.7 - DIARRHEA, UNSPECIFIED SNOMED Code(s): 02001740 (2) C. difficile colitis Current Visit: Yes Status: Acute Code(s): A04.72 - ENTEROCOLITIS D/T CLOSTRIDIUM DIFFICILE, NOT SPCF RECUR SNOMED Code(s): 399618584 Plan: 1. Continue symptomatic and supportive care 2. Continue Questran as ordered 3. Encourage yogurt 4. Will add probiotic 5. Continue Pepto-Bismol as ordered. Note this can cause black stools. 6. Continue Dificid per recommendations from infectious disease 7. Recommend repeat C. difficile stool study once Dificid completed 8. Recommend outpatient colonoscopy 9. Diet as tolerated, low fiber diet Thank you for allowing us to participate in the care of the patient, the GI service will sign off, gastroenterology will not be available at the hospital this weekend and through next week. Dr. Marleen White I agree with the dictator's note, documented as a scribe by Zulema Bond.
--- NOTE | 2023-10-17 11:09 | P.PN ---
Subjective Progress Note Date: 10/17/23 52-year-old male who is seen in the emergency department, October 04, 2023. The patient came in with weakness, mental status changes, and suspected sepsis. The patient recently had a left below the knee amputation, done by Dr. Domínguez, on September 02. 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 The patient was discharged after number days to a local prison. He came back into the emergency department as mentioned on October 03. He was being treated for a C. difficile infection. He apparently was noted to be febrile, lethargic, and weak, with a low blood pressure. For that reason, he was sent in to the emergency department, and brought in by EMS. I was called by the emergency room physician, who did fluid resuscitation initially, but then started him on some norepinephrine. For that reason, the patient necessitated an admission to the intensive care unit. Currently he is on 2 L of oxygen. He is given D5W with 3 ampoules of sodium bicarb and at 125 cc an hour. His norepinephrine dose is 4 mcg/min. He is currently on IV Flagyl, and oral vancomycin for his C. difficile infection. White count is 21.9, hemoglobin 10.2, hematocrit 32.9, platelet count 199,000. Sodium 139, potassium 4.6, chlorides 119, CO2 9, BUN 99, creatinine 2.96. Glucose is 192. Calcium 8.8, magnesium 2.3. He did test positive here for C. difficile. Chest x-ray is read as normal here. CT of the abdomen and pelvis shows circumferential thickening of the colon throughout its entire length, most compatible with colitis. On today's evaluation of 10/06/2023, the patient is being seen for a follow-up. The patient was moved to the intensive care unit because of ongoing diarrhea and the patient also developed 2 episodes of coffee-ground emesis overnight and the patient is going to undergo an EGD today. The patient is currently on IV Protonix. The patient is NPO. The patient is eating combination IV Flagyl and oral vancomycin regarding acute C. difficile colitis. The patient is currently off pressors. White cell count remains elevated. Remains somewhat encephalopathic although there is improvement in his mentation over the past 12 hours. The white cell count is at 24 with a hemoglobin 9.9 and a platelet count of 198. Sodium is at 140, potassium is 3.8, serum bicarb is improved and is currently up to 21 with a BUN of 80 and a creatinine of 1.9 and the patient is improving in terms of his renal function. The HbA1c is at 7.8. LFTs are normal. Troponins are negative. Most recent blood sugar is 306. The patient is on bicarb infusion which is running at a rate of 125 cc an hour. Serum bicarb is improved. The patient is on Levemir insulin 30 units in the evening and 10 units in the morning along with a NovoLog sliding scale coverage. The patient is currently on oral bicarb supplements. No significant abdominal pain. He does have a large anterior abdominal wall ventral hernia. On 10/07/2023, the patient is being seen for a follow-up. The patient continues to have episodes of diarrhea and the patient remains on a combination of oral vancomycin 500 mg p.o. 4 times daily and IV metronidazole. The patient's abdomen is mildly tender. The white cell count is still elevated at 30.5 with a hemoglobin 10.3 and a platelet count of 65. Creatinine is improving is currently down to 1.64 with a BUN of 78 and a sodium levels at 139. The patient remains on normal saline at a rate of 100 cc an hour. Overnight, the patient had to be placed on pressors and the patient is currently on norepinephrine at 0.05 mcg/kg/min. The patient had a positive fluid balance of 1.8 L over the past 24 hours. The patient underwent an EGD yesterday and the patient was found to have gastritis and biopsies were taken. The patient remains on IV Protonix. Diet will be provided today. Rest of medications remain unchanged. He remains on Levemir 30 units in the evening and 10 units in the morning along with NovoLog 5 units with meals. No other significant events overnight. Blood cultures been negative. General surgery is on the case. 10/08/2023, the patient continues to have liquidy diarrhea. The patient also has some flatulence. Remains on IV Flagyl and oral vancomycin. He is on room air oxygen. White cell count is improving and currently down to 20.5 with a hemoglobin 9.8 and a platelet count of 223. Creatinine is also improving and is down to 1.34 with a BUN of 51. Sodium level is at 137, serum bicarb is at 20. Blood sugars at 282. The patient remains on DuoNeb. Furthermore, the patient was taken off the oral vancomycin the patient was switched to Dificid. Rest of the medication remain unchanged. The patient remains on low-dose pressors and the patient is still requiring low-dose norepinephrine which is running 0.02 mcg/kg/min. IV fluids are in the form of normal saline at rate of 100 cc an hour. This is a medication remains unchanged. He remains on Levemir insulin 30 units at nighttime and 10 units in the morning in addition to sliding scale coverage. He is on Lasix 40 mg p.o. daily. 10/09/2023, I am seeing the patient for a follow-up. This patient is on oral Dificid and IV Flagyl. He was transferred out of the intensive care unit yesterday. He remains hemodynamically stable. White cell count continues to improve and is currently down to 17 with a hemoglobin 9.5. BUN 35 with a creatinine of 1.08 and a sodium levels at 136. Afebrile. Hemodynamically stable. No other significant events overnight. Rest of medications remain unchanged. He remains on IV fluid normal saline at rate of 100 cc an hour. The serum bicarb is currently at 18. On today's evaluation of 10/10/2023, I am seeing the patient for a follow-up. The patient is doing well. No active diarrhea. No nausea vomiting or abdominal pain. Clinically stable. Hemodynamically stable. Serum bicarb is currently at 15 and this was attributed to metabolic acidosis. BUN 30 creatinine 1.2 and sodium is at 136. White cell count is improved and the patient's white cell count is down to 14.7 with a hemoglobin of 9.7. The patient remains on IV Flagy l and oral Dificid for C. difficile colitis. The patient is also receiving bicarb tablets 650 mg p.o. twice a day. The patient remains on room air oxygen. He was able to sit up in a chair today. Calm and comfortable. On today's evaluation of 10/11/2023, patient is stable. No active diarrhea. H emodynamically stable. White cell count is down to 17.5 with a hemoglobin 9.6 and the patient remains on Dificid. The patient remains on room air oxygen. No nausea but no vomiting. No abdominal pain. No chest pain. Rest of the medication shmuel unchanged and the patient remains on oral bicarb supplements. Serum bicarb is at 15 and a sodium levels at 136 with potassium level of 4.1. No other significant events over the night. The patient remains on Lasix 40 mg p.o. daily. Insulin doses remain unchanged. On 10/12/2023, the patient is having liquidy stool 4-6 episodes on a daily basis. Remains on Dificid. Labs from today are still pending. Nevertheless, the patient was started on has been progressive improving and spent down to 15.5. No nausea. No emesis. Serum protein and albumin levels are low and the 4.0 and 1.8 respectively. The patient has developed also scrotal edema evaluated by urology. No other changes in the medication. No edema lower extremities bilaterally. The patient remains on room air oxygen. He was also given Questran 4 g p.o. twice daily. The patient is seen today October 13, 2023 in follow-up on the regular medical floor. He is awake and alert in no acute distress. He is maintaining O2 saturations in the 90s on room air. He denies any worsening shortness of breath, cough or congestion. He is still having ongoing issues with diarrhea. He is in isolation precautions due to his C. difficile colitis. He remains on Dificid. Blood cultures revealed no growth. White count 11.1. Hemoglobin 8.4. Platelets 222. Sodium 136. Potassium 3.5. Bicarb 19. BUN 15. Creatinine 0.89. Glucose 236. He remains on sodium bicarbonate tablets. The patient is seen today October 14, 2023 in follow-up on the regular medical floor. He is currently resting in bed. Awake and alert in no acute distress. Maintaining good O2 saturation in the 90s on room air. No worsening shortness of breath, cough or congestion. He is continuing to have loose bowel movements. Sodium 141. Potassium 3.7. Bicarb 20. BUN 18. Creatinine 0.9. Glucose 126. He is continued on Questran and Dificid. Remains on sodium bicarbonate tablets. The patient is seen today October 15, 2023 in follow-up on the regular medical floor. He is awake and alert in no acute distress. Resting in bed. He is continuing to have issues with diarrhea. He is having skin breakdown on the buttocks due to the continued diarrhea. He declined fecal management system. He remains on Questran and Dificid. He is maintaining good O2 saturations in the 90s on room air. He has been afebrile. Hemodynamically stable. Glucose 151. Blood cultures revealed no growth. The patient is seen today October 16, 2023 in follow-up on the regular medical floor. He is currently resting in bed. Awake and alert in no acute distress. He is maintaining O2 saturations in the 90s on room air. He is afebrile. Hemodynamically stable. He is still having issues with diarrhea. He still declines a fecal management system. He is having some breakdown of the skin on his buttocks. Blood cultures revealed no growth. White count 8.8. Hemoglobin 8.9. Platelets 275. Sodium 143. Potassium 3.9. Bicarb 21. BUN 22. Creatinine 0.9. Glucose 98. He remains on Dificid. The patient is seen today October 17, 2023 in follow-up on the regular medical floor. He is awake and alert in no acute distress. Maintaining O2 saturation in the 90s on room air. Resting in bed. He is still having episodes of diarrhea but they have diminished. He is treated with Bismatrol. Continued on Dificid. He remains on heparin for DVT prophylaxis. Abdominal x-ray pending for today. Blood cultures revealed no growth. White count 9.2. Hemoglobin 9.7. Platelets 323. Sodium 139. Potassium 4.0. Bicarb 28. BUN 23. Creatinine 0.87. Glucose 80. Objective - Vital Signs Vital signs: Vital Signs Temp 98.5 F 10/17/23 07:12 Pulse 72 10/17/23 07:12 Resp 16 10/17/23 07:12 BP 112/70 10/17/23 07:12 Pulse Ox 96 10/17/23 08:51 FiO2 21 10/17/23 08:51 Intake & Output 10/16/23 10/17/23 10/17/23 18:59 06:59 18:59 Output Total 2400 1000 Balance -2400 -1000 Weight 103.4 kg Output: Urine 2400 1000 Other: Voiding Method Indwelling Catheter Indwelling Catheter Indwelling Catheter # Bowel Movements 1 3 1 ABP, PAP, CO, CI - Last Documented Arterial Blood Pressure 151/81 - Exam GENERAL EXAM: Alert, 52-year-old male, resting in bed, on room air, in no apparent distress. HEAD: Normocephalic. EYES: Normal reaction of pupils, equal size. NOSE: Clear with pink turbinates. THROAT: No erythema or exudates. NECK: No masses, no JVD. CHEST: No chest wall deformity. LUNGS: Equal air entry with no crackles, wheeze, rhonchi or dullness. CVS: S1 and S2 normal with no audible murmur, regular rhythm. ABDOMEN: No hepatosplenomegaly, normal bowel sounds, no guarding or rigidity. SPINE: No scoliosis or deformity SKIN: Skin breakdown on the buttocks from continued diarrhea, declines fecal management system. CENTRAL NERVOUS SYSTEM: No focal deficits, tone is normal in all 4 extremities. EXTREMITIES: Left BKA. There is no peripheral edema. No clubbing, no cyanosis. Peripheral pulses are intact. - Labs CBC & Chem 7: 10/17/23 07:45 10/17/23 07:45 Labs: Abnormal Lab Results - Last 24 Hours (Table) 10/16/23 10/16/23 10/16/23 Range/Units 11:28 16:13 21:00 RBC (4.30-5.90) m/uL Hgb (13.0-17.5) gm/dL Hct (39.0-53.0) % MCHC (31.0-37.0) g/dL RDW (11.5-15.5) % Chloride (98-107) mmol/L BUN (9-20) mg/dL POC Glucose (mg/dL) 254 H 299 H 163 H (70-110) mg/dL 10/17/23 10/17/23 Range/Units 07:45 07:45 RBC 3.30 L (4.30-5.90) m/uL Hgb 9.7 L (13.0-17.5) gm/dL Hct 32.5 L (39.0-53.0) % MCHC 30.0 L (31.0-37.0) g/dL RDW 16.0 H (11.5-15.5) % Chloride 109 H (98-107) mmol/L BUN 23 H (9-20) mg/dL POC Glucose (mg/dL) (70-110) mg/dL Assessment and Plan Assessment: Acute C. difficile colitis, currently on oral Dificid with today being his 20th dose, and completed Flagyl. He had been initiated on Bismatrol which seems to have decreased his diarrhea Sepsis/hypotension, secondary to severe diarrhea, from C. difficile colitis, improved and he is off pressors Acute mental status changes, likely on the basis of septic encephalopathy, improved None anion gap metabolic acidosis, sodium bicarb replacement orally Coffee-ground emesis x 2 and the patient, post EGD that revealed gastritis and the patient is currently on Pepcid Acute leukocytosis, secondary to C. difficile colitis, improved and down to 9.2 Acute kidney injury, recovered and creatinine 0.9 Diabetes mellitus Recent left BKA, September 03, 2023 History of hypertension. History of hyperlipidemia. Nonhealing ulcer, left lower extremity, with subsequent left BKA Prior history of methicillin-resistant Staph aureus infection, and Proteus mirabilis bacteremia and the patient completed a course of Rocephin and vancomycin on outpatient basis at the [facility] Large anterior abdominal wall hernia Scrotal edema, being evaluated by urology Plan: The patient was seen and evaluated Medications and labs reviewed Initiated on Bismatrol Remains on Dificid, today will be the 20th dose Remains stable and on room air Plan is to return to [facility] This patient was seen independently by the pulmonary nurse practitioner addressing pulmonary issues I have personally seen and examined the patient, performed the documentation and the assessment and plan as written. Number of minutes spent on the visit: 22.
--- NOTE | 2023-10-17 11:38 | XR ---
EXAMINATION TYPE: XR abdomen 2V DATE OF EXAM: 10/17/2023 7:10 AM CLINICAL INDICATION:Male, 52 years old with history of Ileus; [facility] COMPARISON: None. TECHNIQUE: Two views of the abdomen were obtained. FINDINGS: The bowel gas pattern is nonspecific without dilated loops of small or large bowel. There i s no evidence for organomegaly or pneumoperitoneum. The osseous structures are intact. No abnormal calcifications are present. Fecal material and gas are demonstrated throughout the colon and rectum. IMPRESSION: Nonspecific bowel gas pattern without radiographic evidence for acute process.
[2023-10-17 12:05] LABS: Glucose,Whole Blood 180 mg/dL (70-110)
--- NOTE | 2023-10-17 12:07 | P.PN ---
Subjective Patient is seen in follow-up for acute kidney injury. Renal function at baseline still having loose bowel movements. No vomiting. Oral intake fair. On oral Lasix. Vital signs are stable. General: No acute distress. HEENT: Head exam is unremarkable. LUNGS: No audible rhonchi or wheezes. HEART: Rate and Rhythm are regular. ABDOMEN: Nontender. EXTREMITITES: 1+ edema. Left BKA noted. Objective - Vital Signs Vital signs: Vital Signs Temp 98.5 F 10/17/23 07:12 Pulse 72 10/17/23 07:12 Resp 16 10/17/23 07:12 BP 112/70 10/17/23 07:12 Pulse Ox 96 10/17/23 08:51 FiO2 21 10/17/23 08:51 Intake & Output 10/16/23 10/17/23 10/17/23 18:59 06:59 18:59 Output Total 2400 1000 Balance -2400 -1000 Weight 103.4 kg Output: Urine 2400 1000 Other: Voiding Method Indwelling Catheter Indwelling Catheter Indwelling Catheter # Bowel Movements 1 3 1 ABP, PAP, CO, CI - Last Documented Arterial Blood Pressure 151/81 - Labs CBC & Chem 7: 10/17/23 07:45 10/17/23 07:45 Labs: Abnormal Lab Results - Last 24 Hours (Table) 10/16/23 10/16/23 10/17/23 Range/Units 16:13 21:00 07:45 RBC 3.30 L (4.30-5.90) m/uL Hgb 9.7 L (13.0-17.5) gm/dL Hct 32.5 L (39.0-53.0) % MCHC 30.0 L (31.0-37.0) g/dL RDW 16.0 H (11.5-15.5) % Chloride (98-107) mmol/L BUN (9-20) mg/dL POC Glucose (mg/dL) 299 H 163 H (70-110) mg/dL 10/17/23 10/17/23 Range/Units 07:45 12:03 RBC (4.30-5.90) m/uL Hgb (13.0-17.5) gm/dL Hct (39.0-53.0) % MCHC (31.0-37.0) g/dL RDW (11.5-15.5) % Chloride 109 H (98-107) mmol/L BUN 23 H (9-20) mg/dL POC Glucose (mg/dL) 180 H (70-110) mg/dL Assessment and Plan Plan: Assessment: 1. Acute kidney injury secondary to ATN secondary to hypotension and hypovolemia. Creatinine 4.38 dated October 01, 2023 and improved to 0.87. No hydronephrosis noted on CT. UA fairly benign. 2. C. difficile colitis maintained on Dificid. Also on Questran. 3. Metabolic acidosis secondary to acute kidney injury and GI losses. On oral bicarb. Better. 4. Septic shock. Now off vasopressors. 5. Lower extremity edema maintained on oral Lasix. Plan: Encouraged oral intake. Avoid nephrotoxins. Continue to monitor renal function and urine output.
--- NOTE | 2023-10-17 16:08 | P.PN ---
Subjective Progress Note Date: 10/16/23 Patient is a 52-year-old male admitted to the hospital due to abdominal distention found to have acute C. difficile colitis. Patient was also found to have acute kidney injury and scrotal edema due to hypoalbuminemia. 10/15/2020 Patient is currently lying in the bed. Awake alert and on room air. No comp laints of chest pain or shortness of breath. Still complains of abdominal distentio and bloating sensation. No complaints of nausea or vomiting. No cough or sputum production. Laboratory data showed WBC 8.8 hemoglobin 8.9 and platelets 275 sodium 143 potassium 3.9 chloride 113 bicarb is 20.7 BUN 22.1 and creatinine 0.1 and blood sugar 98 and calcium 8.3 and magnesium 1.9. Repeat abdominal x-ray was ordered. Patient is being continued on fidaxomicin for C. difficile colitis. Patient continues to have diarrhea. Current medications reviewed. Objective - Vital Signs Vital signs: Vital Signs Temp 97.7 F 10/16/23 13:21 Pulse 80 10/16/23 13:21 Resp 18 10/16/23 13:21 BP 112/71 10/16/23 13:21 Pulse Ox 98 10/16/23 13:21 FiO2 40 10/08/23 00:00 Intake & Output 10/15/23 10/16/23 10/16/23 18:59 06:59 18:59 Output Total 1500 1300 1800 Balance -1500 -1300 -1800 Weight 103.4 kg Output: Urine 1500 1300 1800 Other: Voiding Method Indwelling Catheter Indwelling Catheter Indwelling Catheter # Bowel Movements 3 7 2 ABP, PAP, CO, CI - Last Documented Arterial Blood Pressure 151/81 - Exam PHYSICAL EXAMINATION: Patient is lying in the bed comfortably, no acute distress, awake alert and oriented.. HEENT: Normocephalic. Neck is supple. Pupils reactive. Nostrils clear. Oral cavity is moist. Neck reveals no JVD, carotid bruits, or thyromegaly. CHEST EXAMINATION: Trachea is central. Symmetrical expansion. Lung ortiz clear to auscultation and percussion. CARDIAC: Normal S1, S2 with no gallops. No murmurs ABDOMEN: Soft. Distended. Bowel sounds present. No organomegaly. No abdominal bruits. Extremities: reveal no edema. No clubbing or cyanosis Neurologically awake, alert, oriented x 2-3 with well-coordinated movements. No focal deficits noted Skin: No rash or skin lesions. Psychiatric: Coperative. Nonsuicidal Musculoskeletal: No joint swelling or deformity. Normal range of motion. - Labs CBC & Chem 7: 10/17/23 07:45 10/17/23 07:45 Labs: Abnormal Lab Results - Last 24 Hours (Table) 10/15/23 10/15/23 10/16/23 Range/Units 16:23 20:05 07:03 RBC (4.40-5.60) X 10*6/uL Hgb (13.0-17.0) g/dL Hct (39.6-50.0) % MCV (80.0-97.0) FL MCHC (32.0-37.0) g/dL RDW (11.5-14.5) % Chloride 113 H (96-109) mmol/L Carbon Dioxide 20.7 L (21.6-31.8) mmol/L BUN/Creatinine Ratio 24.56 H (12.00-20.00) Ratio POC Glucose (mg/dL) 158 H 253 H (70-110) mg/dL Calcium 8.3 L (8.7-10.3) mg/dL 10/16/23 10/16/23 Range/Units 07:03 11:28 RBC 2.95 L (4.40-5.60) X 10*6/uL Hgb 8.9 L (13.0-17.0) g/dL Hct 29.1 L (39.6-50.0) % MCV 98.6 H (80.0-97.0) FL MCHC 30.6 L (32.0-37.0) g/dL RDW 16.4 H (11.5-14.5) % Chloride (96-109) mmol/L Carbon Dioxide (21.6-31.8) mmol/L BUN/Creatinine Ratio (12.00-20.00) Ratio POC Glucose (mg/dL) 254 H (70-110) mg/dL Calcium (8.7-10.3) mg/dL Assessment and Plan Assessment: Acute C. difficile colitis Sepsis/hypotension due to severe diarrhea secondary to C. difficile colitis. Currently off pressor support. Altered mental status possible metabolic encephalopathy due to infection. Improving. Non-anion gap metabolic acidosis. Coffee-ground emesis x 2 status post EGD showed gastritis Leukocytosis improved Acute kidney injury likely prerenal improved Diabetes type 2 History of recent left BKA on September 03, 2023 Hypertension Hyperlipidemia Nonhealing ulcer left lower extremity with subsequent left BKA Large anterior abdominal wall hernia Scrotal edema likely due to fluid load and hypoalbuminemia. DVT prophylaxis and GI prophylaxis Plan: Patient is currently on renal diet. Encourage oral intake. IV hydration on hold due to scrotal edema patient was given a dose of IV Lasix.. Continue with fidaxomicin. Patient is still having diarrhea. Continue with Questran. ID is on board. Continue with insulin sliding scale and insulin regimen for better blood sugar control. Follow-up renal function and replace electrolytes. Follow-up closely. PT OT and possible rehab transfer. Time with Patient: Greater than 30
[2023-10-17 16:49] LABS: Glucose,Whole Blood 269 mg/dL (70-110)
--- NOTE | 2023-10-17 19:10 | P.PN ---
Subjective Progress Note Date: 10/17/23 Principal diagnosis: C. difficile colitis Patient says he feels much better today. He is taking Pepto-Bismol 3 times per day and says his bloating is improved. Abdominal x-rays show no evidence of toxic megacolon. Vital signs stable. Still having some loose stools. Objective - Vital Signs Vital signs: Vital Signs Temp 98.6 F 10/17/23 13:13 Pulse 73 10/17/23 13:13 Resp 16 10/17/23 13:13 BP 111/67 10/17/23 13:13 Pulse Ox 95 10/17/23 13:13 FiO2 21 10/17/23 08:51 Intake & Output 10/17/23 10/17/23 10/18/23 06:59 18:59 06:59 Output Total 1000 1450 Balance -1000 -1450 Output: Urine 1000 1450 Other: Voiding Method Indwelling Catheter Indwelling Catheter # Bowel Movements 3 1 ABP, PAP, CO, CI - Last Documented Arterial Blood Pressure 151/81 - Exam Abdomen: Soft, nontender, mild distention - Labs CBC & Chem 7: 10/17/23 07:45 10/17/23 07:45 Labs: Abnormal Lab Results - Last 24 Hours (Table) 10/16/23 10/17/23 10/17/23 Range/Units 21:00 07:45 07:45 RBC 3.30 L (4.30-5.90) m/uL Hgb 9.7 L (13.0-17.5) gm/dL Hct 32.5 L (39.0-53.0) % MCHC 30.0 L (31.0-37.0) g/dL RDW 16.0 H (11.5-15.5) % Chloride 109 H (98-107) mmol/L BUN 23 H (9-20) mg/dL POC Glucose (mg/dL) 163 H (70-110) mg/dL 10/17/23 10/17/23 Range/Units 12:03 16:48 RBC (4.30-5.90) m/uL Hgb (13.0-17.5) gm/dL Hct (39.0-53.0) % MCHC (31.0-37.0) g/dL RDW (11.5-15.5) % Chloride (98-107) mmol/L BUN (9-20) mg/dL POC Glucose (mg/dL) 180 H 269 H (70-110) mg/dL Assessment and Plan (1) C. difficile colitis Narrative/Plan: 52-year-old male doing better at this time. Continue antibiotics for C. difficile. No evidence of toxic megacolon. Nonsurgical management. Will sign off. Please consult if needed. Current Visit: Yes Status: Acute Code(s): A04.72 - ENTEROCOLITIS D/T CLOSTRIDIUM DIFFICILE, NOT SPCF RECUR SNOMED Code(s): 730983351
[2023-10-17 21:16] LABS: Glucose,Whole Blood 202 mg/dL (70-110)
[2023-10-18 05:58] LABS: Glucose,Whole Blood 90 mg/dL (70-110)
[2023-10-18 07:14] LABS: Glucose,Whole Blood 76 mg/dL (70-110)
--- NOTE | 2023-10-18 10:43 | P.PN ---
Subjective Progress Note Date: 10/18/23 52-year-old male who is seen in the emergency department, October 04, 2023. The patient came in with weakness, mental status changes, and suspected sepsis. The patient recently had a left below the knee amputation, done by Dr. Domínguez, on September 02. 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 The patient was discharged after number days to a local alf. He came back into the emergency department as mentioned on October 03. He was being treated for a C. difficile infection. He apparently was noted to be febrile, lethargic, and weak, with a low blood pressure. For that reason, he was sent in to the emergency department, and brought in by EMS. I was called by the emergency room physician, who did fluid resuscitation initially, but then started him on some norepinephrine. For that reason, the patient necessitated an admission to the intensive care unit. Currently he is on 2 L of oxygen. He is given D5W with 3 ampoules of sodium bicarb and at 125 cc an hour. His norepinephrine dose is 4 mcg/min. He is currently on IV Flagyl, and oral vancomycin for his C. difficile infection. White count is 21.9, hemoglobin 10.2, hematocrit 32.9, platelet count 199,000. Sodium 139, potassium 4.6, chlorides 119, CO2 9, BUN 99, creatinine 2.96. Glucose is 192. Calcium 8.8, magnesium 2.3. He did test positive here for C. difficile. Chest x-ray is read as normal here. CT of the abdomen and pelvis shows circumferential thickening of the colon throughout its entire length, most compatible with colitis. On today's evaluation of 10/06/2023, the patient is being seen for a follow-up. The patient was moved to the intensive care unit because of ongoing diarrhea and the patient also developed 2 episodes of coffee-ground emesis overnight and the patient is going to undergo an EGD today. The patient is currently on IV Protonix. The patient is NPO. The patient is eating combination IV Flagyl and oral vancomycin regarding acute C. difficile colitis. The patient is currently off pressors. White cell count remains elevated. Remains somewhat encephalopathic although there is improvement in his mentation over the past 12 hours. The white cell count is at 24 with a hemoglobin 9.9 and a platelet count of 198. Sodium is at 140, potassium is 3.8, serum bicarb is improved and is currently up to 21 with a BUN of 80 and a creatinine of 1.9 and the patient is improving in terms of his renal function. The HbA1c is at 7.8. LFTs are normal. Troponins are negative. Most recent blood sugar is 306. The patient is on bicarb infusion which is running at a rate of 125 cc an hour. Serum bicarb is improved. The patient is on Levemir insulin 30 units in the evening and 10 units in the morning along with a NovoLog sliding scale coverage. The patient is currently on oral bicarb supplements. No significant abdominal pain. He does have a large anterior abdominal wall ventral hernia. On 10/07/2023, the patient is being seen for a follow-up. The patient continues to have episodes of diarrhea and the patient remains on a combination of oral vancomycin 500 mg p.o. 4 times daily and IV metronidazole. The patient's abdomen is mildly tender. The white cell count is still elevated at 30.5 with a hemoglobin 10.3 and a platelet count of 65. Creatinine is improving is currently down to 1.64 with a BUN of 78 and a sodium levels at 139. The patient remains on normal saline at a rate of 100 cc an hour. Overnight, the patient had to be placed on pressors and the patient is currently on norepinephrine at 0.05 mcg/kg/min. The patient had a positive fluid balance of 1.8 L over the past 24 hours. The patient underwent an EGD yesterday and the patient was found to have gastritis and biopsies were taken. The patient remains on IV Protonix. Diet will be provided today. Rest of medications remain unchanged. He remains on Levemir 30 units in the evening and 10 units in the morning along with NovoLog 5 units with meals. No other significant events overnight. Blood cultures been negative. General surgery is on the case. 10/08/2023, the patient continues to have liquidy diarrhea. The patient also has some flatulence. Remains on IV Flagyl and oral vancomycin. He is on room air oxygen. White cell count is improving and currently down to 20.5 with a hemoglobin 9.8 and a platelet count of 223. Creatinine is also improving and is down to 1.34 with a BUN of 51. Sodium level is at 137, serum bicarb is at 20. Blood sugars at 282. The patient remains on DuoNeb. Furthermore, the patient was taken off the oral vancomycin the patient was switched to Dificid. Rest of the medication remain unchanged. The patient remains on low-dose pressors and the patient is still requiring low-dose norepinephrine which is running 0.02 mcg/kg/min. IV fluids are in the form of normal saline at rate of 100 cc an hour. This is a medication remains unchanged. He remains on Levemir insulin 30 units at nighttime and 10 units in the morning in addition to sliding scale coverage. He is on Lasix 40 mg p.o. daily. 10/09/2023, I am seeing the patient for a follow-up. This patient is on oral Dificid and IV Flagyl. He was transferred out of the intensive care unit yesterday. He remains hemodynamically stable. White cell count continues to improve and is currently down to 17 with a hemoglobin 9.5. BUN 35 with a creatinine of 1.08 and a sodium levels at 136. Afebrile. Hemodynamically stable. No other significant events overnight. Rest of medications remain unchanged. He remains on IV fluid normal saline at rate of 100 cc an hour. The serum bicarb is currently at 18. On today's evaluation of 10/10/2023, I am seeing the patient for a follow-up. The patient is doing well. No active diarrhea. No nausea vomiting or abdominal pain. Clinically stable. Hemodynamically stable. Serum bicarb is currently at 15 and this was attributed to metabolic acidosis. BUN 30 creatinine 1.2 and sodium is at 136. White cell count is improved and the patient's white cell count is down to 14.7 with a hemoglobin of 9.7. The patient remains on IV Flagy l and oral Dificid for C. difficile colitis. The patient is also receiving bicarb tablets 650 mg p.o. twice a day. The patient remains on room air oxygen. He was able to sit up in a chair today. Calm and comfortable. On today's evaluation of 10/11/2023, patient is stable. No active diarrhea. H emodynamically stable. White cell count is down to 17.5 with a hemoglobin 9.6 and the patient remains on Dificid. The patient remains on room air oxygen. No nausea but no vomiting. No abdominal pain. No chest pain. Rest of the medication shmuel unchanged and the patient remains on oral bicarb supplements. Serum bicarb is at 15 and a sodium levels at 136 with potassium level of 4.1. No other significant events over the night. The patient remains on Lasix 40 mg p.o. daily. Insulin doses remain unchanged. On 10/12/2023, the patient is having liquidy stool 4-6 episodes on a daily basis. Remains on Dificid. Labs from today are still pending. Nevertheless, the patient was started on has been progressive improving and spent down to 15.5. No nausea. No emesis. Serum protein and albumin levels are low and the 4.0 and 1.8 respectively. The patient has developed also scrotal edema evaluated by urology. No other changes in the medication. No edema lower extremities bilaterally. The patient remains on room air oxygen. He was also given Questran 4 g p.o. twice daily. The patient is seen today October 13, 2023 in follow-up on the regular medical floor. He is awake and alert in no acute distress. He is maintaining O2 saturations in the 90s on room air. He denies any worsening shortness of breath, cough or congestion. He is still having ongoing issues with diarrhea. He is in isolation precautions due to his C. difficile colitis. He remains on Dificid. Blood cultures revealed no growth. White count 11.1. Hemoglobin 8.4. Platelets 222. Sodium 136. Potassium 3.5. Bicarb 19. BUN 15. Creatinine 0.89. Glucose 236. He remains on sodium bicarbonate tablets. The patient is seen today October 14, 2023 in follow-up on the regular medical floor. He is currently resting in bed. Awake and alert in no acute distress. Maintaining good O2 saturation in the 90s on room air. No worsening shortness of breath, cough or congestion. He is continuing to have loose bowel movements. Sodium 141. Potassium 3.7. Bicarb 20. BUN 18. Creatinine 0.9. Glucose 126. He is continued on Questran and Dificid. Remains on sodium bicarbonate tablets. The patient is seen today October 15, 2023 in follow-up on the regular medical floor. He is awake and alert in no acute distress. Resting in bed. He is continuing to have issues with diarrhea. He is having skin breakdown on the buttocks due to the continued diarrhea. He declined fecal management system. He remains on Questran and Dificid. He is maintaining good O2 saturations in the 90s on room air. He has been afebrile. Hemodynamically stable. Glucose 151. Blood cultures revealed no growth. The patient is seen today October 16, 2023 in follow-up on the regular medical floor. He is currently resting in bed. Awake and alert in no acute distress. He is maintaining O2 saturations in the 90s on room air. He is afebrile. Hemodynamically stable. He is still having issues with diarrhea. He still declines a fecal management system. He is having some breakdown of the skin on his buttocks. Blood cultures revealed no growth. White count 8.8. Hemoglobin 8.9. Platelets 275. Sodium 143. Potassium 3.9. Bicarb 21. BUN 22. Creatinine 0.9. Glucose 98. He remains on Dificid. The patient is seen today October 17, 2023 in follow-up on the regular medical floor. He is awake and alert in no acute distress. Maintaining O2 saturation in the 90s on room air. Resting in bed. He is still having episodes of diarrhea but they have diminished. He is treated with Bismatrol. Continued on Dificid. He remains on heparin for DVT prophylaxis. Abdominal x-ray pending for today. Blood cultures revealed no growth. White count 9.2. Hemoglobin 9.7. Platelets 323. Sodium 139. Potassium 4.0. Bicarb 28. BUN 23. Creatinine 0.87. Glucose 80. The patient is seen today October 18, 2023 in follow-up on the regular medical floor. He is currently resting in bed. Awake and alert in no acute distress. Continues to maintain good O2 saturations in the 90s on room air. He did have a reported 8 bowel movements through the night again. He has completed his 20 doses of Dificid. Remains on Pepto-Bismol and Questran. Abdominal x-ray revealed a nonspecific bowel gas pattern without evidence of an acute process. Fecal material and gas are demonstrated throughout the colon and rectum. No evidence of pneumoperitoneum. Glucose 76. He remains afebrile. Hemodynamically stable. Objective - Vital Signs Vital signs: Vital Signs Temp 98.1 F 10/18/23 08:00 Pulse 93 10/18/23 08:00 Resp 16 10/18/23 08:00 BP 107/66 10/18/23 02:00 Pulse Ox 93 L 10/18/23 08:00 FiO2 21 10/17/23 08:51 Intake & Output 10/17/23 10/18/23 10/18/23 18:59 06:59 18:59 Intake Total 720 Output Total 1450 800 Balance -1450 -800 720 Intake: Oral 720 Output: Urine 1450 800 Other: Voiding Method Indwelling Catheter Indwelling Catheter Indwelling Catheter # Bowel Movements 1 5 ABP, PAP, CO, CI - Last Documented Arterial Blood Pressure 151/81 - Exam GENERAL EXAM: Alert, oriented 52-year-old male, on room air, in no apparent distress. HEAD: Normocephalic. EYES: Normal reaction of pupils, equal size. NOSE: Clear with pink turbinates. THROAT: No erythema or exudates. NECK: No masses, no JVD. CHEST: No chest wall deformity. LUNGS: Equal air entry with no crackles, wheeze, rhonchi or dullness. CVS: S1 and S2 normal with no audible murmur, regular rhythm. ABDOMEN: No hepatosplenomegaly, normal bowel sounds, no guarding or rigidity. SPINE: No scoliosis or deformity SKIN: Skin breakdown on the buttocks from continued diarrhea, declines fecal management system. CENTRAL NERVOUS SYSTEM: No focal deficits, tone is normal in all 4 extremities. EXTREMITIES: Left BKA. Scrotal edema. There is no peripheral edema. No clubbing, no cyanosis. Peripheral pulses are intact. - Labs CBC & Chem 7: 10/17/23 07:45 10/17/23 07:45 Labs: Abnormal Lab Results - Last 24 Hours (Table) 10/17/23 10/17/23 10/17/23 Range/Units 12:03 16:48 21:15 POC Glucose (mg/dL) 180 H 269 H 202 H (70-110) mg/dL Assessment and Plan Assessment: Acute C. difficile colitis, completed 20 doses of Dificid and completed Flagyl. He had been initiated on Bismatrol. The patient had another 8 bowel movements throughout the night. Abdominal x-ray revealed a nonspecific bowel gas pattern without evidence of an acute process. Fecal material and gas are demonstrated throughout the colon and rectum. No evidence of pneumoperitoneum. Sepsis/hypotension, secondary to severe diarrhea, from C. difficile colitis, improved and off pressors Acute mental status changes, likely on the basis of septic encephalopathy, improved None anion gap metabolic acidosis, sodium bicarb replacement orally Coffee-ground emesis x 2 and the patient, post EGD that revealed gastritis and the patient is currently on Pepcid Acute leukocytosis, secondary to C. difficile colitis, improved and down to 9.2 Acute kidney injury, recovered and creatinine 0.87 Diabetes mellitus Recent left BKA, September 03, 2023 History of hypertension. History of hyperlipidemia. Nonhealing ulcer, left lower extremity, with subsequent left BKA Prior history of methicillin-resistant Staph aureus infection, and Proteus mirabilis bacteremia and the patient completed a course of Rocephin and vancomycin on outpatient basis at the [facility] Large anterior abdominal wall hernia Scrotal edema, being evaluated by urology Excoriation of the buttocks due to diarrhea. Patient has declined fecal management system Plan: The patient was seen and evaluated Abdominal x-ray, medications and labs reviewed Continues with frequent bowel movements Completed 20 doses of Dificid Completed Flagyl Currently on Pepto-Bismol Remains on Questran Will need a follow-up C. difficile screen May require fecal transplant Infectious disease on the case Remains stable and on room air Plan is to return to [facility] at discharge This patient was seen independently by the pulmonary nurse practitioner add ressing pulmonary issues I have personally seen and examined the patient, performed the documentation and the assessment and plan as written. Number of minutes spent on the visit: 24.
[2023-10-18 11:49] LABS: Glucose,Whole Blood 160 mg/dL (70-110)
--- NOTE | 2023-10-18 12:27 | P.PN ---
Subjective patient is seen for follow-up for acute kidney injury. being treated for C. diff colitis. No significant complaints today. Maintained on Lasix 40 mg daily. Objective - Vital Signs Vital signs: Vital Signs Temp 98.1 F 10/18/23 08:00 Pulse 93 10/18/23 08:00 Resp 16 10/18/23 08:00 BP 107/66 10/18/23 02:00 Pulse Ox 93 L 10/18/23 08:00 FiO2 21 10/17/23 08:51 Intake & Output 10/17/23 10/18/23 10/18/23 18:59 06:59 18:59 Intake Total 720 Output Total 1450 800 825 Balance -1450 -800 -105 Intake: Oral 720 Output: Urine 1450 800 825 Other: Voiding Method Indwelling Catheter Indwelling Catheter Indwelling Catheter # Bowel Movements 1 5 1 ABP, PAP, CO, CI - Last Documented Arterial Blood Pressure 151/81 - Exam patient is awake. Alert oriented x 3 Examination of the heart S1 and S2 Examination the lungs bilateral breath sounds are heard Abdomen is soft nontender Examination lower extremities shows no edema, left BKA - Labs CBC & Chem 7: 10/17/23 07:45 10/17/23 07:45 Labs: Abnormal Lab Results - Last 24 Hours (Table) 10/17/23 10/17/23 10/18/23 Range/Units 16:48 21:15 11:45 POC Glucose (mg/dL) 269 H 202 H 160 H (70-110) mg/dL Assessment and Plan Assessment: 1. Acute kidney injury secondary to ATN secondary to hypotension and hypovolemia. Creatinine 4.38 dated October 01, 2023. It is down to 0.8. Baseline creatinine near 1. No hydronephrosis noted on CT. Restarted on Lasix due to lower extremity edema. now improved. 2. C. difficile colitis maintained on oral vancomycin. 3. Metabolic acidosis secondary to acute kidney injury and GI losses. 4. Septic shock, s/p Levophed. Plan: continue with oral Lasix. Continue to monitor renal function periodically.
--- NOTE | 2023-10-18 14:49 | P.PN ---
Subjective Progress Note Date: 10/17/23 Principal diagnosis: Reason for follow-up is C. 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 difficile colitis. On today's evaluation that is 10/17/2023,the patient denies any fever or any chills, patient is breathing comfortably on room air, the patient denies chest pain shortness of breath and no significant cough, patient denies abdominal pain, no nausea vomiting patient did mention improvement in his diarrhea with Pepto-Bismol. Patient white count is down to 9.2 creatinine 0.87 Objective - Vital Signs Vital signs: Vital Signs Temp 98.5 F 10/17/23 07:12 Pulse 72 10/17/23 07:12 Resp 16 10/17/23 07:12 BP 112/70 10/17/23 07:12 Pulse Ox 96 10/17/23 08:51 FiO2 21 10/17/23 08:51 Intake & Output 10/16/23 10/17/23 10/17/23 18:59 06:59 18:59 Output Total 2400 1000 Balance -2400 -1000 Weight 103.4 kg Output: Urine 2400 1000 Other: Voiding Method Indwelling Catheter Indwelling Catheter Indwelling Catheter # Bowel Movements 1 3 1 ABP, PAP, CO, CI - Last Documented Arterial Blood Pressure 151/81 - Exam Middle-age male lying in bed in no distress Respiratory system unlabored breathing decreased breath sound the base Heart S1-S2 regular Abdominal soft no tenderness Extremities left BKA stump wound is currently dressed no drainage - Labs CBC & Chem 7: 10/17/23 07:45 10/17/23 07:45 Labs: Abnormal Lab Results - Last 24 Hours (Table) 10/16/23 10/16/23 10/17/23 Range/Units 16:13 21:00 07:45 RBC 3.30 L (4.30-5.90) m/uL Hgb 9.7 L (13.0-17.5) gm/dL Hct 32.5 L (39.0-53.0) % MCHC 30.0 L (31.0-37.0) g/dL RDW 16.0 H (11.5-15.5) % Chloride (98-107) mmol/L BUN (9-20) mg/dL POC Glucose (mg/dL) 299 H 163 H (70-110) mg/dL 10/17/23 10/17/23 Range/Units 07:45 12:03 RBC (4.30-5.90) m/uL Hgb (13.0-17.5) gm/dL Hct (39.0-53.0) % MCHC (31.0-37.0) g/dL RDW (11.5-15.5) % Chloride 109 H (98-107) mmol/L BUN 23 H (9-20) mg/dL POC Glucose (mg/dL) 180 H (70-110) mg/dL Assessment and Plan (1) Leukocytosis Current Visit: Yes Status: Acute Code(s): D72.829 - ELEVATED WHITE BLOOD CELL COUNT, UNSPECIFIED SNOMED Code(s): 959857815 (2) C. difficile colitis Current Visit: Yes Status: Acute Code(s): A04.72 - ENTEROCOLITIS D/T CLOSTRIDIUM DIFFICILE, NOT SPCF RECUR SNOMED Code(s): 291189663 Plan: 1patient presented to the hospital with sepsis in this patient who did have hypotension tachycardia low-grade fever and elevated white count medically clear for SIRS/sepsis source is severe C. difficile colitis failing outpatient treatm ent 2-patient also have left BKA stump wound does not look infected continue with local wound care per the wound care 3-patient white count has normalized and diarrhea seems to have slowly improved with addition of Pepto-Bismol to continue along with Questran and Dificid Dictation was produced using [employer] dictation software. please excuse any grammatical, word or spelling errors. Time with Patient: Less than 30
--- NOTE | 2023-10-18 14:50 | P.PN ---
Subjective Progress Note Date: 10/18/23 Principal diagnosis: Reason for follow-up is C. 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 difficile colitis. On today's evaluation that is 10/18/2023,the patient remains to be afebrile, patient is on room air not requiring supplemental oxygen and denies any danny rtness of breath no chest pain or cough.Patient denies having any nausea or vomiting, no abdominal pain and still having frequent bowel movement but not watery getting more mushy as reported by the nursing staff. No new labs were obtained today Objective - Vital Signs Vital signs: Vital Signs Temp 97.8 F 10/18/23 14:00 Pulse 74 10/18/23 14:00 Resp 14 10/18/23 14:00 BP 101/64 10/18/23 14:00 Pulse Ox 96 10/18/23 14:00 FiO2 21 10/17/23 08:51 Intake & Output 10/17/23 10/18/23 10/18/23 18:59 06:59 18:59 Intake Total 960 Output Total 8098 466 1916 Balance -1450 -800 -765 Intake: Oral 960 Output: Urine 0713 425 6540 Other: Voiding Method Indwelling Catheter Indwelling Catheter Indwelling Catheter # Bowel Movements 1 5 2 ABP, PAP, CO, CI - Last Documented Arterial Blood Pressure 151/81 - Exam Middle-age male lying in bed in no distress Respiratory system unlabored breathing decreased breath sound the base Heart S1-S2 regular Abdominal soft no tenderness Extremities left BKA stump wound is currently dressed no drainage - Labs CBC & Chem 7: 10/17/23 07:45 10/17/23 07:45 Labs: Abnormal Lab Results - Last 24 Hours (Table) 10/17/23 10/17/23 10/18/23 Range/Units 16:48 21:15 11:45 POC Glucose (mg/dL) 269 H 202 H 160 H (70-110) mg/dL Assessment and Plan (1) Leukocytosis Current Visit: Yes Status: Acute Code(s): D72.829 - ELEVATED WHITE BLOOD CELL COUNT, UNSPECIFIED SNOMED Code(s): 328237256 (2) C. difficile colitis Current Visit: Yes Status: Acute Code(s): A04.72 - ENTEROCOLITIS D/T CLOSTRIDIUM DIFFICILE, NOT SPCF RECUR SNOMED Code(s): 211546337 Plan: 1patient presented to the hospital with sepsis in this patient who did have hypotension tachycardia low-grade fever and elevated white count medically clear for SIRS/sepsis source is severe C. difficile colitis failing outpatient treatment 2-patient also have left BKA stump wound does not look infected continue with local wound care per the wound care 3-patient white count has normalized and diarrhea has slowly improved with addition of Pepto-Bismol which will be continued continued along with Questran, patient completed 30-day course of oral Dificid, will monitor closely off antibiotics at this point Dictation was produced using [employer] dictation software. please excuse any grammatical, word or spelling errors. Time with Patient: Less than 30
[2023-10-18 16:49] LABS: Glucose,Whole Blood 150 mg/dL (70-110)
[2023-10-18 20:46] LABS: Glucose,Whole Blood 234 mg/dL (70-110)
[2023-10-19 06:01] LABS: Glucose,Whole Blood 98 mg/dL (70-110)
[2023-10-19 09:34] LABS: Basophils # (A) 0.03 X 10*3/uL (0.00-0.10); Basophils % (A) 0.3 %; Eosinophils # (A) 0.14 X 10*3/uL (0.04-0.35); Eosinophils % (A) 1.3 %; HCT 29.1 % (39.6-50.0); HGB 8.8 g/dL (13.0-17.0); Lymphocytes # (A) 0.98 X 10*3/uL (0.90-5.00); Lymphocytes % (A) 9.3 %; MCH 29.6 pg (27.0-32.0); MCHC 30.2 g/dL (32.0-37.0); Mean Platelet Volume 9.8 FL (9.5-12.2); Monocytes # (A) 1.12 X 10*3/uL (0.20-1.00); Monocytes % (A) 10.6 %; NRBC Per 100 WBC 0 X 10*3/uL (0.00-0.01); Neutrophils # (A) 8.25 X 10*3/uL (1.80-7.70); Neutrophils % (A) 78.1 %; Platelet Count 259 X 10*3/uL (140-440); RBC 2.97 X 10*6/uL (4.40-5.60); RDW 17.1 % (11.5-14.5); WBC 10.56 X 10*3/uL (4.50-10.00)
[2023-10-19 10:01] LABS: Blood Urea Nitrogen 18.2 mg/dL (9.0-27.0); Carbon Dioxide 28.3 mmol/L (21.6-31.8); Chloride 105 mmol/L (96-109); Glucose 108 mg/dL (70-110); Potassium 5.1 mmol/L (3.5-5.5); Sodium 139 mmol/L (135-145)
[2023-10-19 10:02] LABS: ALT 11 U/L (10-49); AST 13 U/L (14-35); Alkaline Phosphatase 71 U/L (41-126); Calcium 9.1 mg/dL (8.7-10.3); Globulin 2.3 g/dL (1.6-3.3); Total Bilirubin <0.2 mg/dL (0.3-1.2); Total Protein 5.3 g/dL (6.2-8.2)
--- NOTE | 2023-10-19 10:28 | P.PN ---
Subjective Progress Note Date: 10/19/23 52-year-old male who is seen in the emergency department, October 04, 2023. The patient came in with weakness, mental status changes, and suspected sepsis. The patient recently had a left below the knee amputation, done by Dr. Domínguez, on September 02. 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 The patient was discharged after number days to a local residential. He came back into the emergency department as mentioned on October 03. He was being treated for a C. difficile infection. He apparently was noted to be febrile, lethargic, and weak, with a low blood pressure. For that reason, he was sent in to the emergency department, and brought in by EMS. I was called by the emergency room physician, who did fluid resuscitation initially, but then started him on some norepinephrine. For that reason, the patient necessitated an admission to the intensive care unit. Currently he is on 2 L of oxygen. He is given D5W with 3 ampoules of sodium bicarb and at 125 cc an hour. His norepinephrine dose is 4 mcg/min. He is currently on IV Flagyl, and oral vancomycin for his C. difficile infection. White count is 21.9, hemoglobin 10.2, hematocrit 32.9, platelet count 199,000. Sodium 139, potassium 4.6, chlorides 119, CO2 9, BUN 99, creatinine 2.96. Glucose is 192. Calcium 8.8, magnesium 2.3. He did test positive here for C. difficile. Chest x-ray is read as normal here. CT of the abdomen and pelvis shows circumferential thickening of the colon throughout its entire length, most compatible with colitis. On today's evaluation of 10/06/2023, the patient is being seen for a follow-up. The patient was moved to the intensive care unit because of ongoing diarrhea and the patient also developed 2 episodes of coffee-ground emesis overnight and the patient is going to undergo an EGD today. The patient is currently on IV Protonix. The patient is NPO. The patient is eating combination IV Flagyl and oral vancomycin regarding acute C. difficile colitis. The patient is currently off pressors. White cell count remains elevated. Remains somewhat encephalopathic although there is improvement in his mentation over the past 12 hours. The white cell count is at 24 with a hemoglobin 9.9 and a platelet count of 198. Sodium is at 140, potassium is 3.8, serum bicarb is improved and is currently up to 21 with a BUN of 80 and a creatinine of 1.9 and the patient is improving in terms of his renal function. The HbA1c is at 7.8. LFTs are normal. Troponins are negative. Most recent blood sugar is 306. The patient is on bicarb infusion which is running at a rate of 125 cc an hour. Serum bicarb is improved. The patient is on Levemir insulin 30 units in the evening and 10 units in the morning along with a NovoLog sliding scale coverage. The patient is currently on oral bicarb supplements. No significant abdominal pain. He does have a large anterior abdominal wall ventral hernia. On 10/07/2023, the patient is being seen for a follow-up. The patient continues to have episodes of diarrhea and the patient remains on a combination of oral vancomycin 500 mg p.o. 4 times daily and IV metronidazole. The patient's abdomen is mildly tender. The white cell count is still elevated at 30.5 with a hemoglobin 10.3 and a platelet count of 65. Creatinine is improving is currently down to 1.64 with a BUN of 78 and a sodium levels at 139. The patient remains on normal saline at a rate of 100 cc an hour. Overnight, the patient had to be placed on pressors and the patient is currently on norepinephrine at 0.05 mcg/kg/min. The patient had a positive fluid balance of 1.8 L over the past 24 hours. The patient underwent an EGD yesterday and the patient was found to have gastritis and biopsies were taken. The patient remains on IV Protonix. Diet will be provided today. Rest of medications remain unchanged. He remains on Levemir 30 units in the evening and 10 units in the morning along with NovoLog 5 units with meals. No other significant events overnight. Blood cultures been negative. General surgery is on the case. 10/08/2023, the patient continues to have liquidy diarrhea. The patient also has some flatulence. Remains on IV Flagyl and oral vancomycin. He is on room air oxygen. White cell count is improving and currently down to 20.5 with a hemoglobin 9.8 and a platelet count of 223. Creatinine is also improving and is down to 1.34 with a BUN of 51. Sodium level is at 137, serum bicarb is at 20. Blood sugars at 282. The patient remains on DuoNeb. Furthermore, the patient was taken off the oral vancomycin the patient was switched to Dificid. Rest of the medication remain unchanged. The patient remains on low-dose pressors and the patient is still requiring low-dose norepinephrine which is running 0.02 mcg/kg/min. IV fluids are in the form of normal saline at rate of 100 cc an hour. This is a medication remains unchanged. He remains on Levemir insulin 30 units at nighttime and 10 units in the morning in addition to sliding scale coverage. He is on Lasix 40 mg p.o. daily. 10/09/2023, I am seeing the patient for a follow-up. This patient is on oral Dificid and IV Flagyl. He was transferred out of the intensive care unit yesterday. He remains hemodynamically stable. White cell count continues to improve and is currently down to 17 with a hemoglobin 9.5. BUN 35 with a creatinine of 1.08 and a sodium levels at 136. Afebrile. Hemodynamically stable. No other significant events overnight. Rest of medications remain unchanged. He remains on IV fluid normal saline at rate of 100 cc an hour. The serum bicarb is currently at 18. On today's evaluation of 10/10/2023, I am seeing the patient for a follow-up. The patient is doing well. No active diarrhea. No nausea vomiting or abdominal pain. Clinically stable. Hemodynamically stable. Serum bicarb is currently at 15 and this was attributed to metabolic acidosis. BUN 30 creatinine 1.2 and sodium is at 136. White cell count is improved and the patient's white cell count is down to 14.7 with a hemoglobin of 9.7. The patient remains on IV Flagy l and oral Dificid for C. difficile colitis. The patient is also receiving bicarb tablets 650 mg p.o. twice a day. The patient remains on room air oxygen. He was able to sit up in a chair today. Calm and comfortable. On today's evaluation of 10/11/2023, patient is stable. No active diarrhea. H emodynamically stable. White cell count is down to 17.5 with a hemoglobin 9.6 and the patient remains on Dificid. The patient remains on room air oxygen. No nausea but no vomiting. No abdominal pain. No chest pain. Rest of the medication shmuel unchanged and the patient remains on oral bicarb supplements. Serum bicarb is at 15 and a sodium levels at 136 with potassium level of 4.1. No other significant events over the night. The patient remains on Lasix 40 mg p.o. daily. Insulin doses remain unchanged. On 10/12/2023, the patient is having liquidy stool 4-6 episodes on a daily basis. Remains on Dificid. Labs from today are still pending. Nevertheless, the patient was started on has been progressive improving and spent down to 15.5. No nausea. No emesis. Serum protein and albumin levels are low and the 4.0 and 1.8 respectively. The patient has developed also scrotal edema evaluated by urology. No other changes in the medication. No edema lower extremities bilaterally. The patient remains on room air oxygen. He was also given Questran 4 g p.o. twice daily. The patient is seen today October 13, 2023 in follow-up on the regular medical floor. He is awake and alert in no acute distress. He is maintaining O2 saturations in the 90s on room air. He denies any worsening shortness of breath, cough or congestion. He is still having ongoing issues with diarrhea. He is in isolation precautions due to his C. difficile colitis. He remains on Dificid. Blood cultures revealed no growth. White count 11.1. Hemoglobin 8.4. Platelets 222. Sodium 136. Potassium 3.5. Bicarb 19. BUN 15. Creatinine 0.89. Glucose 236. He remains on sodium bicarbonate tablets. The patient is seen today October 14, 2023 in follow-up on the regular medical floor. He is currently resting in bed. Awake and alert in no acute distress. Maintaining good O2 saturation in the 90s on room air. No worsening shortness of breath, cough or congestion. He is continuing to have loose bowel movements. Sodium 141. Potassium 3.7. Bicarb 20. BUN 18. Creatinine 0.9. Glucose 126. He is continued on Questran and Dificid. Remains on sodium bicarbonate tablets. The patient is seen today October 15, 2023 in follow-up on the regular medical floor. He is awake and alert in no acute distress. Resting in bed. He is continuing to have issues with diarrhea. He is having skin breakdown on the buttocks due to the continued diarrhea. He declined fecal management system. He remains on Questran and Dificid. He is maintaining good O2 saturations in the 90s on room air. He has been afebrile. Hemodynamically stable. Glucose 151. Blood cultures revealed no growth. The patient is seen today October 16, 2023 in follow-up on the regular medical floor. He is currently resting in bed. Awake and alert in no acute distress. He is maintaining O2 saturations in the 90s on room air. He is afebrile. Hemodynamically stable. He is still having issues with diarrhea. He still declines a fecal management system. He is having some breakdown of the skin on his buttocks. Blood cultures revealed no growth. White count 8.8. Hemoglobin 8.9. Platelets 275. Sodium 143. Potassium 3.9. Bicarb 21. BUN 22. Creatinine 0.9. Glucose 98. He remains on Dificid. The patient is seen today October 17, 2023 in follow-up on the regular medical floor. He is awake and alert in no acute distress. Maintaining O2 saturation in the 90s on room air. Resting in bed. He is still having episodes of diarrhea but they have diminished. He is treated with Bismatrol. Continued on Dificid. He remains on heparin for DVT prophylaxis. Abdominal x-ray pending for today. Blood cultures revealed no growth. White count 9.2. Hemoglobin 9.7. Platelets 323. Sodium 139. Potassium 4.0. Bicarb 28. BUN 23. Creatinine 0.87. Glucose 80. The patient is seen today October 18, 2023 in follow-up on the regular medical floor. He is currently resting in bed. Awake and alert in no acute distress. Continues to maintain good O2 saturations in the 90s on room air. He did have a reported 8 bowel movements through the night again. He has completed his 20 doses of Dificid. Remains on Pepto-Bismol and Questran. Abdominal x-ray revealed a nonspecific bowel gas pattern without evidence of an acute process. Fecal material and gas are demonstrated throughout the colon and rectum. No evidence of pneumoperitoneum. Glucose 76. He remains afebrile. Hemodynamically stable. The patient is seen today October 19, 2023 follow-up on the regular medical floor. He is awake and alert in no acute distress. He continues to maintain good O2 saturations in the 90s on room air. He is continuing to have frequent bowel movements a bit less watery according to staff. He remains on Pepto-Bismol and Questran. He completed Dificid. Being monitored for further leukocytosis or fever. He is on heparin for DVT prophylaxis. Remains on oral diuretics. White count 10.5. Hemoglobin 8.8. Platelets 259. Sodium 139. Potassium 5.1. Bicarb 28. BUN 18. Creatinine 1.0. Glucose 108. He remains afebrile. Hemodynamically stable. Objective - Vital Signs Vital signs: Vital Signs Temp 99.8 F H 10/19/23 08:00 Pulse 93 10/19/23 08:00 Resp 16 10/19/23 08:00 BP 134/74 10/19/23 08:00 Pulse Ox 93 L 10/19/23 08:00 FiO2 21 10/17/23 08:51 Intake & Output 10/18/23 10/19/23 10/19/23 18:59 06:59 18:59 Intake Total 1440 Output Total 2475 700 Balance -1035 -700 Intake: Oral 1440 Output: Urine 2475 700 Other: Voiding Method Indwelling Catheter Indwelling Catheter # Bowel Movements 2 1 1 ABP, PAP, CO, CI - Last Documented Arterial Blood Pressure 151/81 - Exam GENERAL EXAM: Alert, 52-year-old male, resting in bed, on room air, in no distress. HEAD: Normocephalic. EYES: Normal reaction of pupils, equal size. NOSE: Clear with pink turbinates. THROAT: No erythema or exudates. NECK: No masses, no JVD. CHEST: No chest wall deformity. LUNGS: Equal air entry with no crackles, wheeze, rhonchi or dullness. CVS: S1 and S2 normal with no audible murmur, regular rhythm. ABDOMEN: No hepatosplenomegaly, normal bowel sounds, no guarding or rigidity. SPINE: No scoliosis or deformity SKIN: Skin breakdown on the buttocks from continued diarrhea, declines fecal management system. CENTRAL NERVOUS SYSTEM: No focal deficits, tone is normal in all 4 extremities. EXTREMITIES: Left BKA. Scrotal edema. There is no peripheral edema. No clubbing, no cyanosis. Peripheral pulses are intact. - Labs CBC & Chem 7: 10/19/23 05:38 10/19/23 05:38 Labs: Abnormal Lab Results - Last 24 Hours (Table) 10/18/23 10/18/23 10/18/23 Range/Units 11:45 16:47 20:44 WBC (4.50-10.00) X 10*3/uL RBC (4.40-5.60) X 10*6/uL Hgb (13.0-17.0) g/dL Hct (39.6-50.0) % MCV (80.0-97.0) FL MCHC (32.0-37.0) g/dL RDW (11.5-14.5) % Neutrophils # (1.80-7.70) X 10*3/uL Monocytes # (0.20-1.00) X 10*3/uL POC Glucose (mg/dL) 160 H 150 H 234 H (70-110) mg/dL Total Bilirubin (0.3-1.2) mg/dL AST (14-35) U/L C-Reactive Protein (0.00-0.80) mg/dL Total Protein (6.2-8.2) g/dL Albumin (3.8-4.9) g/dL Albumin/Globulin Ratio (1.60-3.17) Ratio 10/19/23 10/19/23 Range/Units 05:38 05:38 WBC 10.56 H (4.50-10.00) X 10*3/uL RBC 2.97 L (4.40-5.60) X 10*6/uL Hgb 8.8 L (13.0-17.0) g/dL Hct 29.1 L (39.6-50.0) % MCV 98.0 H (80.0-97.0) FL MCHC 30.2 L (32.0-37.0) g/dL RDW 17.1 H (11.5-14.5) % Neutrophils # 8.25 H (1.80-7.70) X 10*3/uL Monocytes # 1.12 H (0.20-1.00) X 10*3/uL POC Glucose (mg/dL) (70-110) mg/dL Total Bilirubin <0.2 L (0.3-1.2) mg/dL AST 13 L (14-35) U/L C-Reactive Protein 1.90 H (0.00-0.80) mg/dL Total Protein 5.3 L (6.2-8.2) g/dL Albumin 3.0 L (3.8-4.9) g/dL Albumin/Globulin Ratio 1.30 L (1.60-3.17) Ratio Assessment and Plan Assessment: Acute C. difficile colitis, completed 20 doses of Dificid and completed Flagyl. He had been initiated on Bismatrol. The patient had another 8 bowel movements throughout the night. Abdominal x-ray revealed a nonspecific bowel gas pattern without evidence of an acute process. Fecal material and gas are demonstrated throughout the colon and rectum. No evidence of pneumoperitoneum. Sepsis/hypotension, secondary to severe diarrhea, from C. difficile colitis, recovered Acute mental status changes, likely on the basis of septic encephalopathy, recovered None anion gap metabolic acidosis, recovered Coffee-ground emesis x 2 and the patient, post EGD that revealed gastritis Acute leukocytosis, secondary to C. difficile colitis, improved and down to 10.5 Acute kidney injury, recovered and creatinine 1.0 Diabetes mellitus Recent left BKA, September 03, 2023 History of hypertension. History of hyperlipidemia. Nonhealing ulcer, left lower extremity, with subsequent left BKA Prior history of methicillin-resistant Staph aureus infection, and Proteus mirabilis bacteremia and the patient completed a course of Rocephin and vancomycin on outpatient basis at the [facility] Large anterior abdominal wall hernia Scrotal edema, being evaluated by urology Excoriation of the buttocks due to diarrhea. Patient has declined fecal management system Plan: The patient was seen and evaluated Medications and labs reviewed Currently on Pepto-Bismol Remains on Questran Infectious disease following closely Remains stable and on room air Plan is to return to [facility] This patient was seen independently by the pulmonary nurse practitioner addressing pulmonary issues I have personally seen and examined the patient, performed the documentation and the assessment and plan as written. Number of minutes spent on the visit: 23.
[2023-10-19 12:02] LABS: Glucose,Whole Blood 261 mg/dL (70-110)
--- NOTE | 2023-10-19 13:00 | P.PN ---
Subjective patient is seen for follow-up for acute kidney injury. being treated for C. diff colitis. No significant complaints today. Maintained on Lasix 40 mg daily. Objective - Vital Signs Vital signs: Vital Signs Temp 99.8 F H 10/19/23 08:00 Pulse 93 10/19/23 08:00 Resp 16 10/19/23 08:00 BP 134/74 10/19/23 08:00 Pulse Ox 93 L 10/19/23 08:00 FiO2 21 10/17/23 08:51 Intake & Output 10/18/23 10/19/23 10/19/23 18:59 06:59 18:59 Intake Total 1440 Output Total 2475 700 800 Balance -4975 -056 -929 Intake: Oral 1440 Output: Urine 8945 700 800 Other: Voiding Method Indwelling Catheter Indwelling Catheter Indwelling Catheter # Bowel Movements 2 1 1 ABP, PAP, CO, CI - Last Documented Arterial Blood Pressure 151/81 - Exam patient is awake. Alert oriented x 3 Abdomen is soft nontender Examination lower extremities shows no edema, left BKA - Labs CBC & Chem 7: 10/19/23 05:38 10/19/23 05:38 Labs: Abnormal Lab Results - Last 24 Hours (Table) 10/18/23 10/18/23 10/19/23 Range/Units 16:47 20:44 05:38 WBC 10.56 H (4.50-10.00) X 10*3/uL RBC 2.97 L (4.40-5.60) X 10*6/uL Hgb 8.8 L (13.0-17.0) g/dL Hct 29.1 L (39.6-50.0) % MCV 98.0 H (80.0-97.0) FL MCHC 30.2 L (32.0-37.0) g/dL RDW 17.1 H (11.5-14.5) % Neutrophils # 8.25 H (1.80-7.70) X 10*3/uL Monocytes # 1.12 H (0.20-1.00) X 10*3/uL POC Glucose (mg/dL) 150 H 234 H (70-110) mg/dL Total Bilirubin (0.3-1.2) mg/dL AST (14-35) U/L C-Reactive Protein (0.00-0.80) mg/dL Total Protein (6.2-8.2) g/dL Albumin (3.8-4.9) g/dL Albumin/Globulin Ratio (1.60-3.17) Ratio 10/19/23 10/19/23 Range/Units 05:38 12:01 WBC (4.50-10.00) X 10*3/uL RBC (4.40-5.60) X 10*6/uL Hgb (13.0-17.0) g/dL Hct (39.6-50.0) % MCV (80.0-97.0) FL MCHC (32.0-37.0) g/dL RDW (11.5-14.5) % Neutrophils # (1.80-7.70) X 10*3/uL Monocytes # (0.20-1.00) X 10*3/uL POC Glucose (mg/dL) 261 H (70-110) mg/dL Total Bilirubin <0.2 L (0.3-1.2) mg/dL AST 13 L (14-35) U/L C-Reactive Protein 1.90 H (0.00-0.80) mg/dL Total Protein 5.3 L (6.2-8.2) g/dL Albumin 3.0 L (3.8-4.9) g/dL Albumin/Globulin Ratio 1.30 L (1.60-3.17) Ratio Assessment and Plan Assessment: 1. Acute kidney injury secondary to ATN secondary to hypotension and hypovolemia. Creatinine 4.38 dated October 01, 2023. It is 1.0 today. Baseline creatinine near 1. No hydronephrosis noted on CT. Restarted on Lasix due to lower extremity edema. now improved. 2. C. difficile colitis maintained on oral vancomycin. 3. Metabolic acidosis secondary to acute kidney injury and GI losses. 4. Septic shock, s/p Levophed. Plan: continue with oral Lasix. decrease dose to 20 mg daily. Continue to monitor renal function periodically.
[2023-10-19 17:01] LABS: Glucose,Whole Blood 200 mg/dL (70-110)
[2023-10-19 20:23] LABS: Glucose,Whole Blood 243 mg/dL (70-110)
--- NOTE | 2023-10-19 20:24 | PN ---
PROGRESS NOTE Severe protein-calorie malnutrition. MMODL / IJN: [id number] /
--- NOTE | 2023-10-19 22:45 | P.PN ---
Subjective Progress Note Date: 10/17/23 Patient is a 52-year-old male admitted to the hospital due to abdominal distention found to have acute C. difficile colitis. Patient was also found to have acute kidney injury and scrotal edema due to hypoalbuminemia. 10/15/2020 Patient is currently lying in the bed. Awake alert and on room air. No com plaints of chest pain or shortness of breath. Still complains of abdominal distentio and bloating sensation. No complaints of nausea or vomiting. No cough or sputum production. Laboratory data showed WBC 8.8 hemoglobin 8.9 and platelets 275 sodium 143 potassium 3.9 chloride 113 bicarb is 20.7 BUN 22.1 and creatinine 0.1 and blood sugar 98 and calcium 8.3 and magnesium 1.9. Repeat abdominal x-ray was ordered. Patient is being continued on fidaxomicin for C. difficile colitis. Patient continues to have diarrhea. 10/17/2023 Patient is resting in bed. Awake alert and oriented. On room air. No complaints of chest pain. Abdominal distention/bloating improved. Abdominal x- ray showed normal bowel gas pattern. Patient still having diarrhea but improving. Patient is being continued on fi daxomicin. Laboratory test showed WBC 9.2 hemoglobin 9.7 and platelets 323, sodium 139 potassium 4.0 chloride 109 bicarb is 28 BUN 23 and creatinine 0.87 blood sugar 80 and calcium 8.6. Current medications reviewed. Objective - Vital Signs Vital signs: Vital Signs Temp 98.1 F 10/18/23 08:00 Pulse 93 10/18/23 08:00 Resp 16 10/18/23 08:00 BP 107/66 10/18/23 02:00 Pulse Ox 93 L 10/18/23 08:00 FiO2 21 10/17/23 08:51 Intake & Output 10/17/23 10/18/23 10/18/23 18:59 06:59 18:59 Intake Total 720 Output Total 3156 612 4910 Balance -1450 -800 -1005 Intake: Oral 720 Output: Urine 2671 588 0530 Other: Voiding Method Indwelling Catheter Indwelling Catheter Indwelling Catheter # Bowel Movements 1 5 2 ABP, PAP, CO, CI - Last Documented Arterial Blood Pressure 151/81 - Exam PHYSICAL EXAMINATION: Patient is lying in the bed comfortably, no acute distress, awake alert and oriented.. HEENT: Normocephalic. Neck is supple. Pupils reactive. Nostrils clear. Oral cavity is moist. Neck reveals no JVD, carotid bruits, or thyromegaly. CHEST EXAMINATION: Trachea is central. Symmetrical expansion. Lung ortiz clear to auscultation and percussion. CARDIAC: Normal S1, S2 with no gallops. No murmurs ABDOMEN: Soft. Distended. Bowel sounds present. No organomegaly. No abdominal bruits. Extremities: reveal no edema. No clubbing or cyanosis Neurologically awake, alert, oriented x 2-3 with well-coordinated movements. No focal deficits noted Skin: No rash or skin lesions. Psychiatric: Coperative. Nonsuicidal Musculoskeletal: No joint swelling or deformity. Normal range of motion. - Labs CBC & Chem 7: 10/19/23 05:38 10/19/23 05:38 Labs: Abnormal Lab Results - Last 24 Hours (Table) 10/17/23 10/17/23 10/18/23 Range/Units 16:48 21:15 11:45 POC Glucose (mg/dL) 269 H 202 H 160 H (70-110) mg/dL Assessment and Plan Assessment: Acute C. difficile colitis Sepsis/hypotension due to severe diarrhea secondary to C. difficile colitis. Currently off pressor support. Blood pressure is stable. Altered mental status possible metabolic encephalopathy due to infection. Improving. Non-anion gap metabolic acidosis. Coffee-ground emesis x 2 status post EGD showed gastritis Leukocytosis improved Acute kidney injury due to ATN. 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 DVT prophylaxis and GI prophylaxis Plan: Patient is currently on renal diet. Encourage oral intake. IV hydration on hold due to scrotal edema patient was given a dose of IV Lasix.. Continue with fidaxomicin. Patient is still having diarrhea. Continue with Questran. ID is on board. Continue with insulin sliding scale and insulin regimen for better blood sugar control. Follow-up renal function and replace electrolytes. Follow-up closely. PT OT and possible rehab transfer. Time with Patient: Greater than 30
--- NOTE | 2023-10-19 22:48 | P.PN ---
Subjective Progress Note Date: 10/19/23 Patient is a 52-year-old male admitted to the hospital due to abdominal distention found to have acute C. difficile colitis. Patient was also found to have acute kidney injury and scrotal edema due to hypoalbuminemia. 10/15/2020 Patient is currently lying in the bed. Awake alert and on room air. No com plaints of chest pain or shortness of breath. Still complains of abdominal distentio and bloating sensation. No complaints of nausea or vomiting. No cough or sputum production. Laboratory data showed WBC 8.8 hemoglobin 8.9 and platelets 275 sodium 143 potassium 3.9 chloride 113 bicarb is 20.7 BUN 22.1 and creatinine 0.1 and blood sugar 98 and calcium 8.3 and magnesium 1.9. Repeat abdominal x-ray was ordered. Patient is being continued on fidaxomicin for C. difficile colitis. Patient continues to have diarrhea. 10/17/2023 Patient is resting in bed. Awake alert and oriented. On room air. No complaints of chest pain. Abdominal distention/bloating improved. Abdominal x- ray showed normal bowel gas pattern. Patient still having diarrhea but improving. Patient is being continued on fi daxomicin. Laboratory test showed WBC 9.2 hemoglobin 9.7 and platelets 323, sodium 139 potassium 4.0 chloride 109 bicarb is 28 BUN 23 and creatinine 0.87 blood sugar 80 and calcium 8.6. 10/18/2023 Patient is currently lying in the bed. Awake alert and oriented x 3. On room air. No complaints of chest pain or shortness of breath. Patient still having diarrhea. Continued on fidaxomicin. Patient is also on Pepto-Bismol and Questran. No new laboratory data today. Blood pressure is stable. Patient is on Lasix. ID, nephrology and pulmonary is on board. 10/19/2023 Patient is resting in the bed. Awake alert and oriented x 3. No complaints of chest pain or shortness of breath. On room air. Afebrile. Tmax 99.8. Patient is still having diarrhea but less watery and decreased frequency. No complaints of abdominal pain. No nausea or vomiting. Patient is on renal diet. Laboratory data showed WBC 10.5 hemoglobin 8.8 and platelets 259 Sodium 139 potassium 5.1 chloride 105 bicarb is 28.3 BUN 18.20 creatinine 1.0 and blood sugar is 108 AST 13 ALT 11 and alk phos 71 CRP 1.9 and albumin 3.0 Current medications reviewed. Objective - Vital Signs Vital signs: Vital Signs Temp 98.6 F 10/19/23 20:00 Pulse 89 10/19/23 20:00 Resp 14 10/19/23 20:00 BP 123/71 10/19/23 20:00 Pulse Ox 92 L 10/19/23 20:00 FiO2 21 10/17/23 08:51 Intake & Output 10/19/23 10/19/23 10/20/23 06:59 18:59 06:59 Output Total 700 800 Balance -700 -800 Output: Urine 700 800 Other: Voiding Method Indwelling Catheter Indwelling Catheter # Bowel Movements 1 2 ABP, PAP, CO, CI - Last Documented Arterial Blood Pressure 151/81 - Exam PHYSICAL EXAMINATION: Patient is lying in the bed comfortably, no acute distress, awake alert and oriented.. HEENT: Normocephalic. Neck is supple. Pupils reactive. Nostrils clear. Oral cavity is moist. Neck reveals no JVD, carotid bruits, or thyromegaly. CHEST EXAMINATION: Trachea is central. Symmetrical expansion. Lung ortiz clear to auscultation and percussion. CARDIAC: Normal S1, S2 with no gallops. No murmurs ABDOMEN: Soft. Distended. Bowel sounds present. No organomegaly. No abdominal bruits. Extremities: reveal no edema. No clubbing or cyanosis Neurologically awake, alert, oriented x 2-3 with well-coordinated movements. No focal deficits noted Skin: No rash or skin lesions. Psychiatric: Coperative. Nonsuicidal Musculoskeletal: No joint swelling or deformity. Normal range of motion. - Labs CBC & Chem 7: 10/19/23 05:38 10/19/23 05:38 Labs: Abnormal Lab Results - Last 24 Hours (Table) 10/19/23 10/19/23 10/19/23 Range/Units 05:38 05:38 12:01 WBC 10.56 H (4.50-10.00) X 10*3/uL RBC 2.97 L (4.40-5.60) X 10*6/uL Hgb 8.8 L (13.0-17.0) g/dL Hct 29.1 L (39.6-50.0) % MCV 98.0 H (80.0-97.0) FL MCHC 30.2 L (32.0-37.0) g/dL RDW 17.1 H (11.5-14.5) % Neutrophils # 8.25 H (1.80-7.70) X 10*3/uL Monocytes # 1.12 H (0.20-1.00) X 10*3/uL POC Glucose (mg/dL) 261 H (70-110) mg/dL Total Bilirubin <0.2 L (0.3-1.2) mg/dL AST 13 L (14-35) U/L C-Reactive Protein 1.90 H (0.00-0.80) mg/dL Total Protein 5.3 L (6.2-8.2) g/dL Albumin 3.0 L (3.8-4.9) g/dL Albumin/Globulin Ratio 1.30 L (1.60-3.17) Ratio 10/19/23 10/19/23 Range/Units 16:50 20:20 WBC (4.50-10.00) X 10*3/uL RBC (4.40-5.60) X 10*6/uL Hgb (13.0-17.0) g/dL Hct (39.6-50.0) % MCV (80.0-97.0) FL MCHC (32.0-37.0) g/dL RDW (11.5-14.5) % Neutrophils # (1.80-7.70) X 10*3/uL Monocytes # (0.20-1.00) X 10*3/uL POC Glucose (mg/dL) 200 H 243 H (70-110) mg/dL Total Bilirubin (0.3-1.2) mg/dL AST (14-35) U/L C-Reactive Protein (0.00-0.80) mg/dL Total Protein (6.2-8.2) g/dL Albumin (3.8-4.9) g/dL Albumin/Globulin Ratio (1.60-3.17) Ratio Assessment and Plan Assessment: Acute C. difficile colitis Sepsis/hypotension due to severe diarrhea secondary to C. difficile colitis. Currently off pressor support. Blood pressure is stable. Altered mental status possible metabolic encephalopathy due to infection. Improving. Non-anion gap metabolic acidosis. Coffee-ground emesis x 2 status post EGD showed gastritis Leukocytosis improved Acute kidney injury due to ATN. 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 DVT prophylaxis with heparin subcu and GI prophylaxis Plan: Patient is currently on renal diet. Encourage oral intake. Continue with Lasix 20 mg daily... Continue with fidaxomicin. Patient is still having diarrhea but improving. Continue with Questran and Pepto-Bismol. ID is on board. Continue with insulin sliding scale and insulin regimen for better blood sugar control. Follow-up renal function and replace electrolytes. Follow-up closely. Follow-up CBC and BMP tomorrow. PT OT and possible rehab transfer. Time with Patient: Greater than 30
--- NOTE | 2023-10-19 22:48 | P.PN ---
Subjective Progress Note Date: 10/18/23 Patient is a 52-year-old male admitted to the hospital due to abdominal distention found to have acute C. difficile colitis. Patient was also found to have acute kidney injury and scrotal edema due to hypoalbuminemia. 10/15/2020 Patient is currently lying in the bed. Awake alert and on room air. No com plaints of chest pain or shortness of breath. Still complains of abdominal distentio and bloating sensation. No complaints of nausea or vomiting. No cough or sputum production. Laboratory data showed WBC 8.8 hemoglobin 8.9 and platelets 275 sodium 143 potassium 3.9 chloride 113 bicarb is 20.7 BUN 22.1 and creatinine 0.1 and blood sugar 98 and calcium 8.3 and magnesium 1.9. Repeat abdominal x-ray was ordered. Patient is being continued on fidaxomicin for C. difficile colitis. Patient continues to have diarrhea. 10/17/2023 Patient is resting in bed. Awake alert and oriented. On room air. No complaints of chest pain. Abdominal distention/bloating improved. Abdominal x- ray showed normal bowel gas pattern. Patient still having diarrhea but improving. Patient is being continued on fi daxomicin. Laboratory test showed WBC 9.2 hemoglobin 9.7 and platelets 323, sodium 139 potassium 4.0 chloride 109 bicarb is 28 BUN 23 and creatinine 0.87 blood sugar 80 and calcium 8.6. 10/18/2023 Patient is currently lying in the bed. Awake alert and oriented x 3. On room air. No complaints of chest pain or shortness of breath. Patient still having diarrhea. Continued on fidaxomicin. Patient is also on Pepto-Bismol and Questran. No new laboratory data today. Blood pressure is stable. Patient is on Lasix. ID, nephrology and pulmonary is on board. Current medications reviewed. Objective - Vital Signs Vital signs: Vital Signs Temp 98.1 F 10/18/23 08:00 Pulse 93 10/18/23 08:00 Resp 16 10/18/23 08:00 BP 107/66 10/18/23 02:00 Pulse Ox 93 L 10/18/23 08:00 FiO2 21 10/17/23 08:51 Intake & Output 10/17/23 10/18/23 10/18/23 18:59 06:59 18:59 Intake Total 720 Output Total 9818 357 9747 Balance -1450 -800 -1005 Intake: Oral 720 Output: Urine 7945 591 4044 Other: Voiding Method Indwelling Catheter Indwelling Catheter Indwelling Catheter # Bowel Movements 1 5 2 ABP, PAP, CO, CI - Last Documented Arterial Blood Pressure 151/81 - Exam PHYSICAL EXAMINATION: Patient is lying in the bed comfortably, no acute distress, awake alert and oriented.. HEENT: Normocephalic. Neck is supple. Pupils reactive. Nostrils clear. Oral cavity is moist. Neck reveals no JVD, carotid bruits, or thyromegaly. CHEST EXAMINATION: Trachea is central. Symmetrical expansion. Lung ortiz clear to auscultation and percussion. CARDIAC: Normal S1, S2 with no gallops. No murmurs ABDOMEN: Soft. Distended. Bowel sounds present. No organomegaly. No abdominal bruits. Extremities: reveal no edema. No clubbing or cyanosis Neurologically awake, alert, oriented x 2-3 with well-coordinated movements. No focal deficits noted Skin: No rash or skin lesions. Psychiatric: Coperative. Nonsuicidal Musculoskeletal: No joint swelling or deformity. Normal range of motion. - Labs CBC & Chem 7: 10/19/23 05:38 10/19/23 05:38 Labs: Abnormal Lab Results - Last 24 Hours (Table) 10/17/23 10/17/23 10/18/23 Range/Units 16:48 21:15 11:45 POC Glucose (mg/dL) 269 H 202 H 160 H (70-110) mg/dL Assessment and Plan Assessment: Acute C. difficile colitis Sepsis/hypotension due to severe diarrhea secondary to C. difficile colitis. Currently off pressor support. Blood pressure is stable. Altered mental status possible metabolic encephalopathy due to infection. Improving. Non-anion gap metabolic acidosis. Coffee-ground emesis x 2 status post EGD showed gastritis Leukocytosis improved Acute kidney injury due to ATN. 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 DVT prophylaxis with heparin subcu and GI prophylaxis Plan: Patient is currently on renal diet. Encourage oral intake. IV hydration on hold due to scrotal edema patient will be continued on Lasix... Continue with fidaxomicin. Patient is still having diarrhea. Continue with Questran and Pepto-Bismol. ID is on board. Continue with insulin sliding scale and insulin regimen for better blood sugar control. Follow-up renal function and replace electrolytes. Follow-up closely. PT OT and possible rehab transfer. Time with Patient: Greater than 30
[2023-10-20 06:09] LABS: Glucose,Whole Blood 60 mg/dL (70-110)
[2023-10-20 06:23] LABS: Glucose,Whole Blood 88 mg/dL (70-110)
[2023-10-20 08:23] LABS: Basophils # (A) 0.02 X 10*3/uL (0.00-0.10); Basophils % (A) 0.2 %; Eosinophils # (A) 0.16 X 10*3/uL (0.04-0.35); Eosinophils % (A) 1.5 %; HCT 28.2 % (39.6-50.0); HGB 8.1 g/dL (13.0-17.0); Lymphocytes # (A) 1.09 X 10*3/uL (0.90-5.00); Lymphocytes % (A) 10.2 %; MCH 29.1 pg (27.0-32.0); MCHC 28.7 g/dL (32.0-37.0); MCV 101.4 FL (80.0-97.0); Mean Platelet Volume 9.8 FL (9.5-12.2); Monocytes # (A) 1.41 X 10*3/uL (0.20-1.00); Monocytes % (A) 13.3 %; NRBC Per 100 WBC 0 X 10*3/uL (0.00-0.01); Neutrophils # (A) 7.91 X 10*3/uL (1.80-7.70); Neutrophils % (A) 74.3 %; Platelet Count 244 X 10*3/uL (140-440); RBC 2.78 X 10*6/uL (4.40-5.60); RDW 16.9 % (11.5-14.5); WBC 10.64 X 10*3/uL (4.50-10.00)
[2023-10-20 08:51] LABS: Blood Urea Nitrogen 18.7 mg/dL (9.0-27.0); Calcium 8.6 mg/dL (8.7-10.3); Carbon Dioxide 29.1 mmol/L (21.6-31.8); Chloride 104 mmol/L (96-109); Glucose 54 mg/dL (70-110); Potassium 4.4 mmol/L (3.5-5.5); Sodium 140 mmol/L (135-145)
[2023-10-20] MEDS: FUROSEMIDE 20 MG TAB PO SCH (08:59)
[2023-10-20 11:55] LABS: Glucose,Whole Blood 254 mg/dL (70-110)
--- NOTE | 2023-10-20 12:33 | P.PN ---
Subjective patient is seen for follow-up for acute kidney injury. being treated for C. diff colitis. No significant complaints today. Maintained on Lasix, decreased to 20 mg daily. Objective - Vital Signs Vital signs: Vital Signs Temp 98.9 F 10/20/23 07:58 Pulse 91 10/20/23 07:58 Resp 16 10/20/23 07:58 BP 124/63 10/20/23 07:58 Pulse Ox 92 L 10/20/23 07:58 FiO2 21 10/17/23 08:51 Intake & Output 10/19/23 10/20/23 10/20/23 18:59 06:59 18:59 Output Total 800 900 Balance -800 -900 Output: Urine 800 900 Other: Voiding Method Indwelling Catheter Indwelling Catheter # Bowel Movements 2 ABP, PAP, CO, CI - Last Documented Arterial Blood Pressure 151/81 - Exam patient is awake. Alert oriented x 3 examination of the heart S1 and S2 Examination of the lungs bilateral breath sounds are heard Abdomen is soft nontender Examination lower extremities shows no edema, left BKA - Labs CBC & Chem 7: 10/20/23 04:03 10/20/23 04:03 Labs: Abnormal Lab Results - Last 24 Hours (Table) 10/19/23 10/19/23 10/20/23 Range/Units 16:50 20:20 04:03 WBC 10.64 H (4.50-10.00) X 10*3/uL RBC 2.78 L (4.40-5.60) X 10*6/uL Hgb 8.1 L (13.0-17.0) g/dL Hct 28.2 L (39.6-50.0) % MCV 101.4 H (80.0-97.0) FL MCHC 28.7 L (32.0-37.0) g/dL RDW 16.9 H (11.5-14.5) % Immature Gran # 0.05 H (0.00-0.04) X 10*3/uL Neutrophils # 7.91 H (1.80-7.70) X 10*3/uL Monocytes # 1.41 H (0.20-1.00) X 10*3/uL Glucose (70-110) mg/dL POC Glucose (mg/dL) 200 H 243 H (70-110) mg/dL Calcium (8.7-10.3) mg/dL 10/20/23 10/20/23 10/20/23 Range/Units 04:03 06:04 11:53 WBC (4.50-10.00) X 10*3/uL RBC (4.40-5.60) X 10*6/uL Hgb (13.0-17.0) g/dL Hct (39.6-50.0) % MCV (80.0-97.0) FL MCHC (32.0-37.0) g/dL RDW (11.5-14.5) % Immature Gran # (0.00-0.04) X 10*3/uL Neutrophils # (1.80-7.70) X 10*3/uL Monocytes # (0.20-1.00) X 10*3/uL Glucose 54 L (70-110) mg/dL POC Glucose (mg/dL) 60 L 254 H (70-110) mg/dL Calcium 8.6 L (8.7-10.3) mg/dL Assessment and Plan Assessment: 1. Acute kidney injury secondary to ATN secondary to hypotension and hypovolemia. Creatinine 4.38 dated October 01, 2023. It is 1.0 today. Baseline creatinine near 1. No hydronephrosis noted on CT. Restarted on Lasix due to lower extremity edema. now improved. 2. C. difficile colitis maintained on oral vancomycin. 3. Metabolic acidosis secondary to acute kidney injury and GI losses. 4. Septic shock, s/p Levophed. Plan: continue with decreased dose of oral Lasix. Continue to monitor renal function periodically.
--- NOTE | 2023-10-20 15:06 | P.PN ---
Subjective Progress Note Date: 10/20/23 52-year-old male who is seen in the emergency department, October 04, 2023. The patient came in with weakness, mental status changes, and suspected sepsis. The patient recently had a left below the knee amputation, done by Dr. Domínguez, on September 02. 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 The patient was discharged after number days to a local senior living. He came back into the emergency department as mentioned on October 03. He was being treated for a C. difficile infection. He apparently was noted to be febrile, lethargic, and weak, with a low blood pressure. For that reason, he was sent in to the emergency department, and brought in by EMS. I was called by the emergency room physician, who did fluid resuscitation initially, but then started him on some norepinephrine. For that reason, the patient necessitated an admission to the intensive care unit. Currently he is on 2 L of oxygen. He is given D5W with 3 ampoules of sodium bicarb and at 125 cc an hour. His norepinephrine dose is 4 mcg/min. He is currently on IV Flagyl, and oral vancomycin for his C. difficile infection. White count is 21.9, hemoglobin 10.2, hematocrit 32.9, platelet count 199,000. Sodium 139, potassium 4.6, chlorides 119, CO2 9, BUN 99, creatinine 2.96. Glucose is 192. Calcium 8.8, magnesium 2.3. He did test positive here for C. difficile. Chest x-ray is read as normal here. CT of the abdomen and pelvis shows circumferential thickening of the colon throughout its entire length, most compatible with colitis. On today's evaluation of 10/06/2023, the patient is being seen for a follow-up. The patient was moved to the intensive care unit because of ongoing diarrhea and the patient also developed 2 episodes of coffee-ground emesis overnight and the patient is going to undergo an EGD today. The patient is currently on IV Protonix. The patient is NPO. The patient is eating combination IV Flagyl and oral vancomycin regarding acute C. difficile colitis. The patient is currently off pressors. White cell count remains elevated. Remains somewhat encephalopathic although there is improvement in his mentation over the past 12 hours. The white cell count is at 24 with a hemoglobin 9.9 and a platelet count of 198. Sodium is at 140, potassium is 3.8, serum bicarb is improved and is currently up to 21 with a BUN of 80 and a creatinine of 1.9 and the patient is improving in terms of his renal function. The HbA1c is at 7.8. LFTs are normal. Troponins are negative. Most recent blood sugar is 306. The patient is on bicarb infusion which is running at a rate of 125 cc an hour. Serum bicarb is improved. The patient is on Levemir insulin 30 units in the evening and 10 units in the morning along with a NovoLog sliding scale coverage. The patient is currently on oral bicarb supplements. No significant abdominal pain. He does have a large anterior abdominal wall ventral hernia. On 10/07/2023, the patient is being seen for a follow-up. The patient continues to have episodes of diarrhea and the patient remains on a combination of oral vancomycin 500 mg p.o. 4 times daily and IV metronidazole. The patient's abdomen is mildly tender. The white cell count is still elevated at 30.5 with a hemoglobin 10.3 and a platelet count of 65. Creatinine is improving is currently down to 1.64 with a BUN of 78 and a sodium levels at 139. The patient remains on normal saline at a rate of 100 cc an hour. Overnight, the patient had to be placed on pressors and the patient is currently on norepinephrine at 0.05 mcg/kg/min. The patient had a positive fluid balance of 1.8 L over the past 24 hours. The patient underwent an EGD yesterday and the patient was found to have gastritis and biopsies were taken. The patient remains on IV Protonix. Diet will be provided today. Rest of medications remain unchanged. He remains on Levemir 30 units in the evening and 10 units in the morning along with NovoLog 5 units with meals. No other significant events overnight. Blood cultures been negative. General surgery is on the case. 10/08/2023, the patient continues to have liquidy diarrhea. The patient also has some flatulence. Remains on IV Flagyl and oral vancomycin. He is on room air oxygen. White cell count is improving and currently down to 20.5 with a hemoglobin 9.8 and a platelet count of 223. Creatinine is also improving and is down to 1.34 with a BUN of 51. Sodium level is at 137, serum bicarb is at 20. Blood sugars at 282. The patient remains on DuoNeb. Furthermore, the patient was taken off the oral vancomycin the patient was switched to Dificid. Rest of the medication remain unchanged. The patient remains on low-dose pressors and the patient is still requiring low-dose norepinephrine which is running 0.02 mcg/kg/min. IV fluids are in the form of normal saline at rate of 100 cc an hour. This is a medication remains unchanged. He remains on Levemir insulin 30 units at nighttime and 10 units in the morning in addition to sliding scale coverage. He is on Lasix 40 mg p.o. daily. 10/09/2023, I am seeing the patient for a follow-up. This patient is on oral Dificid and IV Flagyl. He was transferred out of the intensive care unit yesterday. He remains hemodynamically stable. White cell count continues to improve and is currently down to 17 with a hemoglobin 9.5. BUN 35 with a creatinine of 1.08 and a sodium levels at 136. Afebrile. Hemodynamically stable. No other significant events overnight. Rest of medications remain unchanged. He remains on IV fluid normal saline at rate of 100 cc an hour. The serum bicarb is currently at 18. On today's evaluation of 10/10/2023, I am seeing the patient for a follow-up. The patient is doing well. No active diarrhea. No nausea vomiting or abdominal pain. Clinically stable. Hemodynamically stable. Serum bicarb is currently at 15 and this was attributed to metabolic acidosis. BUN 30 creatinine 1.2 and sodium is at 136. White cell count is improved and the patient's white cell count is down to 14.7 with a hemoglobin of 9.7. The patient remains on IV Flagy l and oral Dificid for C. difficile colitis. The patient is also receiving bicarb tablets 650 mg p.o. twice a day. The patient remains on room air oxygen. He was able to sit up in a chair today. Calm and comfortable. On today's evaluation of 10/11/2023, patient is stable. No active diarrhea. H emodynamically stable. White cell count is down to 17.5 with a hemoglobin 9.6 and the patient remains on Dificid. The patient remains on room air oxygen. No nausea but no vomiting. No abdominal pain. No chest pain. Rest of the medication shmuel unchanged and the patient remains on oral bicarb supplements. Serum bicarb is at 15 and a sodium levels at 136 with potassium level of 4.1. No other significant events over the night. The patient remains on Lasix 40 mg p.o. daily. Insulin doses remain unchanged. On 10/12/2023, the patient is having liquidy stool 4-6 episodes on a daily basis. Remains on Dificid. Labs from today are still pending. Nevertheless, the patient was started on has been progressive improving and spent down to 15.5. No nausea. No emesis. Serum protein and albumin levels are low and the 4.0 and 1.8 respectively. The patient has developed also scrotal edema evaluated by urology. No other changes in the medication. No edema lower extremities bilaterally. The patient remains on room air oxygen. He was also given Questran 4 g p.o. twice daily. The patient is seen today October 13, 2023 in follow-up on the regular medical floor. He is awake and alert in no acute distress. He is maintaining O2 saturations in the 90s on room air. He denies any worsening shortness of breath, cough or congestion. He is still having ongoing issues with diarrhea. He is in isolation precautions due to his C. difficile colitis. He remains on Dificid. Blood cultures revealed no growth. White count 11.1. Hemoglobin 8.4. Platelets 222. Sodium 136. Potassium 3.5. Bicarb 19. BUN 15. Creatinine 0.89. Glucose 236. He remains on sodium bicarbonate tablets. The patient is seen today October 14, 2023 in follow-up on the regular medical floor. He is currently resting in bed. Awake and alert in no acute distress. Maintaining good O2 saturation in the 90s on room air. No worsening shortness of breath, cough or congestion. He is continuing to have loose bowel movements. Sodium 141. Potassium 3.7. Bicarb 20. BUN 18. Creatinine 0.9. Glucose 126. He is continued on Questran and Dificid. Remains on sodium bicarbonate tablets. The patient is seen today October 15, 2023 in follow-up on the regular medical floor. He is awake and alert in no acute distress. Resting in bed. He is continuing to have issues with diarrhea. He is having skin breakdown on the buttocks due to the continued diarrhea. He declined fecal management system. He remains on Questran and Dificid. He is maintaining good O2 saturations in the 90s on room air. He has been afebrile. Hemodynamically stable. Glucose 151. Blood cultures revealed no growth. The patient is seen today October 16, 2023 in follow-up on the regular medical floor. He is currently resting in bed. Awake and alert in no acute distress. He is maintaining O2 saturations in the 90s on room air. He is afebrile. Hemodynamically stable. He is still having issues with diarrhea. He still declines a fecal management system. He is having some breakdown of the skin on his buttocks. Blood cultures revealed no growth. White count 8.8. Hemoglobin 8.9. Platelets 275. Sodium 143. Potassium 3.9. Bicarb 21. BUN 22. Creatinine 0.9. Glucose 98. He remains on Dificid. The patient is seen today October 17, 2023 in follow-up on the regular medical floor. He is awake and alert in no acute distress. Maintaining O2 saturation in the 90s on room air. Resting in bed. He is still having episodes of diarrhea but they have diminished. He is treated with Bismatrol. Continued on Dificid. He remains on heparin for DVT prophylaxis. Abdominal x-ray pending for today. Blood cultures revealed no growth. White count 9.2. Hemoglobin 9.7. Platelets 323. Sodium 139. Potassium 4.0. Bicarb 28. BUN 23. Creatinine 0.87. Glucose 80. The patient is seen today October 18, 2023 in follow-up on the regular medical floor. He is currently resting in bed. Awake and alert in no acute distress. Continues to maintain good O2 saturations in the 90s on room air. He did have a reported 8 bowel movements through the night again. He has completed his 20 doses of Dificid. Remains on Pepto-Bismol and Questran. Abdominal x-ray revealed a nonspecific bowel gas pattern without evidence of an acute process. Fecal material and gas are demonstrated throughout the colon and rectum. No evidence of pneumoperitoneum. Glucose 76. He remains afebrile. Hemodynamically stable. The patient is seen today October 19, 2023 follow-up on the regular medical floor. He is awake and alert in no acute distress. He continues to maintain good O2 saturations in the 90s on room air. He is continuing to have frequent bowel movements a bit less watery according to staff. He remains on Pepto-Bismol and Questran. He completed Dificid. Being monitored for further leukocytosis or fever. He is on heparin for DVT prophylaxis. Remains on oral diuretics. White count 10.5. Hemoglobin 8.8. Platelets 259. Sodium 139. Potassium 5.1. Bicarb 28. BUN 18. Creatinine 1.0. Glucose 108. He remains afebrile. Hemodynamically stable. The patient is seen today October 20, 2023 in follow-up on the regular medical floor. He is resting comfortably in bed. No worsening shortness of breath, cough or congestion. On room air. White count 10.6. Hemoglobin 8.1. Sodium 140. Potassium 4.4. Bicarb 29. BUN 19. Creatinine 1.0. Glucose 88. He remains on Pepto-Bismol and Questran. Heparin for DVT prophylaxis. Objective - Vital Signs Vital signs: Vital Signs Temp 98.9 F 10/20/23 07:58 Pulse 91 10/20/23 07:58 Resp 16 10/20/23 07:58 BP 124/63 10/20/23 07:58 Pulse Ox 92 L 10/20/23 07:58 FiO2 21 10/17/23 08:51 Intake & Output 10/19/23 10/20/23 10/20/23 18:59 06:59 18:59 Output Total 800 900 Balance -800 -900 Output: Urine 800 900 Other: Voiding Method Indwelling Catheter Indwelling Catheter # Bowel Movements 2 ABP, PAP, CO, CI - Last Documented Arterial Blood Pressure 151/81 - Exam GENERAL EXAM: Alert, 52-year-old male, on room air, in no distress. HEAD: Normocephalic. EYES: Normal reaction of pupils, equal size. NOSE: Clear with pink turbinates. THROAT: No erythema or exudates. NECK: No masses, no JVD. CHEST: No chest wall deformity. LUNGS: Equal air entry with no crackles, wheeze, rhonchi or dullness. CVS: S1 and S2 normal with no audible murmur, regular rhythm. ABDOMEN: No hepatosplenomegaly, normal bowel sounds, no guarding or rigidity. SPINE: No scoliosis or deformity SKIN: Skin breakdown on the buttocks from continued diarrhea, declines fecal management system. CENTRAL NERVOUS SYSTEM: No focal deficits, tone is normal in all 4 extremities. EXTREMITIES: Left BKA. Scrotal edema. There is no peripheral edema. No clubbing, no cyanosis. Peripheral pulses are intact. - Labs CBC & Chem 7: 10/20/23 04:03 10/20/23 04:03 Labs: Abnormal Lab Results - Last 24 Hours (Table) 10/19/23 10/19/23 10/20/23 Range/Units 16:50 20:20 04:03 WBC 10.64 H (4.50-10.00) X 10*3/uL RBC 2.78 L (4.40-5.60) X 10*6/uL Hgb 8.1 L (13.0-17.0) g/dL Hct 28.2 L (39.6-50.0) % MCV 101.4 H (80.0-97.0) FL MCHC 28.7 L (32.0-37.0) g/dL RDW 16.9 H (11.5-14.5) % Immature Gran # 0.05 H (0.00-0.04) X 10*3/uL Neutrophils # 7.91 H (1.80-7.70) X 10*3/uL Monocytes # 1.41 H (0.20-1.00) X 10*3/uL Glucose (70-110) mg/dL POC Glucose (mg/dL) 200 H 243 H (70-110) mg/dL Calcium (8.7-10.3) mg/dL 10/20/23 10/20/23 10/20/23 Range/Units 04:03 06:04 11:53 WBC (4.50-10.00) X 10*3/uL RBC (4.40-5.60) X 10*6/uL Hgb (13.0-17.0) g/dL Hct (39.6-50.0) % MCV (80.0-97.0) FL MCHC (32.0-37.0) g/dL RDW (11.5-14.5) % Immature Gran # (0.00-0.04) X 10*3/uL Neutrophils # (1.80-7.70) X 10*3/uL Monocytes # (0.20-1.00) X 10*3/uL Glucose 54 L (70-110) mg/dL POC Glucose (mg/dL) 60 L 254 H (70-110) mg/dL Calcium 8.6 L (8.7-10.3) mg/dL Assessment and Plan Assessment: Acute C. difficile colitis, completed 20 doses of Dificid and completed Flagyl. He had been initiated on Bismatrol. The patient had another 8 bowel movements throughout the night. Abdominal x-ray revealed a nonspecific bowel gas pattern without evidence of an acute process. Fecal material and gas are demonstrated throughout the colon and rectum. No evidence of pneumoperitoneum. Sepsis/hypotension, secondary to severe diarrhea, from C. difficile colitis, recovered Acute mental status changes, likely on the basis of septic encephalopathy, recovered None anion gap metabolic acidosis, recovered Coffee-ground emesis x 2 and the patient, post EGD that revealed gastritis Acute leukocytosis, secondary to C. difficile colitis, improved and down to 10.6 Acute kidney injury, recovered and creatinine 1.0 Diabetes mellitus Recent left BKA, September 03, 2023 History of hypertension. History of hyperlipidemia. Nonhealing ulcer, left lower extremity, with subsequent left BKA Prior history of methicillin-resistant Staph aureus infection, and Proteus mirabilis bacteremia and the patient completed a course of Rocephin and vancomycin on outpatient basis at the [facility] Large anterior abdominal wall hernia Scrotal edema, being evaluated by urology Excoriation of the buttocks due to diarrhea. Patient has declined fecal management system Plan: The patient was seen and evaluated Medications and labs reviewed Remains stable and on room air C. difficile colitis treatment per ID service Plan is to return to [facility] I have personally seen and examined the patient, performed the documentation and the assessment and plan as written. Number of minutes spent on the visit: 10.
[2023-10-20 16:43] LABS: Glucose,Whole Blood 302 mg/dL (70-110)
--- NOTE | 2023-10-20 17:46 | P.PN ---
Subjective Progress Note Date: 10/19/23 Principal diagnosis: Reason for follow-up is C. 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 difficile colitis. On today's evaluation that is 10/19/2023, the patient continues to be afebrile, the patient is on room air and breathing comfortably, the Pt denies having any chest pain or cough, the patient denies having any abdominal pain no vomiting and no worsening diarrhea has been reported by the nursing staff. Patient did have a white count of 10.56 creatinine 1.0 Objective - Vital Signs Vital signs: Vital Signs Temp 99.8 F H 10/19/23 08:00 Pulse 93 10/19/23 08:00 Resp 16 10/19/23 08:00 BP 134/74 10/19/23 08:00 Pulse Ox 93 L 10/19/23 08:00 FiO2 21 10/17/23 08:51 Intake & Output 10/18/23 10/19/23 10/19/23 18:59 06:59 18:59 Intake Total 1440 Output Total 2475 700 800 Balance -1035 -700 -800 Intake: Oral 1440 Output: Urine 2475 700 800 Other: Voiding Method Indwelling Catheter Indwelling Catheter Indwelling Catheter # Bowel Movements 2 1 1 ABP, PAP, CO, CI - Last Documented Arterial Blood Pressure 151/81 - Exam Middle-age male lying in bed in no distress Respiratory system unlabored breathing decreased breath sound the base Heart S1-S2 regular Abdominal soft no tenderness Extremities left BKA stump wound is currently dressed no drainage - Labs CBC & Chem 7: 10/20/23 04:03 10/20/23 04:03 Labs: Abnormal Lab Results - Last 24 Hours (Table) 10/18/23 10/18/23 10/19/23 Range/Units 16:47 20:44 05:38 WBC 10.56 H (4.50-10.00) X 10*3/uL RBC 2.97 L (4.40-5.60) X 10*6/uL Hgb 8.8 L (13.0-17.0) g/dL Hct 29.1 L (39.6-50.0) % MCV 98.0 H (80.0-97.0) FL MCHC 30.2 L (32.0-37.0) g/dL RDW 17.1 H (11.5-14.5) % Neutrophils # 8.25 H (1.80-7.70) X 10*3/uL Monocytes # 1.12 H (0.20-1.00) X 10*3/uL POC Glucose (mg/dL) 150 H 234 H (70-110) mg/dL Total Bilirubin (0.3-1.2) mg/dL AST (14-35) U/L C-Reactive Protein (0.00-0.80) mg/dL Total Protein (6.2-8.2) g/dL Albumin (3.8-4.9) g/dL Albumin/Globulin Ratio (1.60-3.17) Ratio 10/19/23 10/19/23 Range/Units 05:38 12:01 WBC (4.50-10.00) X 10*3/uL RBC (4.40-5.60) X 10*6/uL Hgb (13.0-17.0) g/dL Hct (39.6-50.0) % MCV (80.0-97.0) FL MCHC (32.0-37.0) g/dL RDW (11.5-14.5) % Neutrophils # (1.80-7.70) X 10*3/uL Monocytes # (0.20-1.00) X 10*3/uL POC Glucose (mg/dL) 261 H (70-110) mg/dL Total Bilirubin <0.2 L (0.3-1.2) mg/dL AST 13 L (14-35) U/L C-Reactive Protein 1.90 H (0.00-0.80) mg/dL Total Protein 5.3 L (6.2-8.2) g/dL Albumin 3.0 L (3.8-4.9) g/dL Albumin/Globulin Ratio 1.30 L (1.60-3.17) Ratio Assessment and Plan (1) Leukocytosis Current Visit: Yes Status: Acute Code(s): D72.829 - ELEVATED WHITE BLOOD CELL COUNT, UNSPECIFIED SNOMED Code(s): 955581675 (2) C. difficile colitis Current Visit: Yes Status: Acute Code(s): A04.72 - ENTEROCOLITIS D/T CLOSTRIDIUM DIFFICILE, NOT SPCF RECUR SNOMED Code(s): 225914233 Plan: 1patient presented to the hospital with sepsis in this patient who did have hypotension tachycardia low-grade fever and elevated white count medically clear for SIRS/sepsis source is severe C. difficile colitis failing outpatient treatment 2-patient also have left BKA stump wound does not look infected continue with local wound care per the wound care 3-patient white count has normalized and diarrhea slowly clinical improving patient has completed a 10-day course of oral Dificid prior to that he was on oral vancomycin we will monitor the patient closely off antibiotic continue with current supportive treatment with the Pepto-Bismol and Questran Dictation was produced using [employer] dictation software. please excuse any grammatical, word or spelling errors. Time with Patient: Less than 30
--- NOTE | 2023-10-20 17:50 | P.PN ---
Subjective Progress Note Date: 10/20/23 Principal diagnosis: Reason for follow-up is C. 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 difficile colitis. On today's evaluation that is 10/20/2023, Patient did spike a fever of 102.7 F at 2 AM I was not notified of that fever this morning the patient is afebrile patient is breathing comfortably denies having any chest pain shortness of breath or cough no abdominal pain mention diarrhea has slowed down. Patient white count is 10.64, with a creatinine 1.0 Objective - Vital Signs Vital signs: Vital Signs Temp 98.9 F 10/20/23 07:58 Pulse 91 10/20/23 07:58 Resp 16 10/20/23 07:58 BP 124/63 10/20/23 07:58 Pulse Ox 92 L 10/20/23 07:58 FiO2 21 10/17/23 08:51 Intake & Output 10/19/23 10/20/23 10/20/23 18:59 06:59 18:59 Output Total 800 900 Balance -800 -900 Output: Urine 800 900 Other: Voiding Method Indwelling Catheter Indwelling Catheter # Bowel Movements 2 ABP, PAP, CO, CI - Last Documented Arterial Blood Pressure 151/81 - Exam Middle-age male lying in bed in no distress Respiratory system unlabored breathing decreased breath sound the base Heart S1-S2 regular Abdominal soft no tenderness Extremities left BKA stump wound is currently dressed no drainage - Labs CBC & Chem 7: 10/20/23 04:03 10/20/23 04:03 Labs: Abnormal Lab Results - Last 24 Hours (Table) 10/19/23 10/19/23 10/20/23 Range/Units 16:50 20:20 04:03 WBC 10.64 H (4.50-10.00) X 10*3/uL RBC 2.78 L (4.40-5.60) X 10*6/uL Hgb 8.1 L (13.0-17.0) g/dL Hct 28.2 L (39.6-50.0) % MCV 101.4 H (80.0-97.0) FL MCHC 28.7 L (32.0-37.0) g/dL RDW 16.9 H (11.5-14.5) % Immature Gran # 0.05 H (0.00-0.04) X 10*3/uL Neutrophils # 7.91 H (1.80-7.70) X 10*3/uL Monocytes # 1.41 H (0.20-1.00) X 10*3/uL Glucose (70-110) mg/dL POC Glucose (mg/dL) 200 H 243 H (70-110) mg/dL Calcium (8.7-10.3) mg/dL 10/20/23 10/20/23 10/20/23 Range/Units 04:03 06:04 11:53 WBC (4.50-10.00) X 10*3/uL RBC (4.40-5.60) X 10*6/uL Hgb (13.0-17.0) g/dL Hct (39.6-50.0) % MCV (80.0-97.0) FL MCHC (32.0-37.0) g/dL RDW (11.5-14.5) % Immature Gran # (0.00-0.04) X 10*3/uL Neutrophils # (1.80-7.70) X 10*3/uL Monocytes # (0.20-1.00) X 10*3/uL Glucose 54 L (70-110) mg/dL POC Glucose (mg/dL) 60 L 254 H (70-110) mg/dL Calcium 8.6 L (8.7-10.3) mg/dL Assessment and Plan (1) Leukocytosis Current Visit: Yes Status: Acute Code(s): D72.829 - ELEVATED WHITE BLOOD CELL COUNT, UNSPECIFIED SNOMED Code(s): 257590044 (2) C. difficile colitis Current Visit: Yes Status: Acute Code(s): A04.72 - ENTEROCOLITIS D/T CLOSTRIDIUM DIFFICILE, NOT SPCF RECUR SNOMED Code(s): 460087848 Plan: 1patient presented to the hospital with sepsis in this patient who did have hypotension tachycardia low-grade fever and elevated white count medically clear for SIRS/sepsis source is severe C. difficile colitis failing outpatient treatment 2-patient also have left BKA stump wound does not look infected continue with local wound care per the wound care 3-patient white count has normalized and diarrhea slowly clinical improving patient has completed a 10-day course of oral Dificid prior to that he was on oral vancomycin we will continue with current supportive treatment with the Pepto-Bismol and Questran 4-patient did have a new fever could be related to his Domínguez catheter we will repeat blood cultures nursing staff has been advised to discontinue his Domínguez catheter afterwards obtain a UA and culture and if still having loose stool to get the stool for C. difficile if any further fever to let me know right away Dictation was produced using [employer] software. please excuse any grammatical, word or spelling errors. Time with Patient: Less than 30
[2023-10-20 21:02] LABS: Glucose,Whole Blood 269 mg/dL (70-110)
[2023-10-20 21:51] LABS: Appearance,Urine Cloudy (Clear); Bacteria,Urine Rare /hpf; Bilirubin,Urine Negative (Negative); Blood,Urine Moderate (Negative); Color,Urine Light Yellow; Glucose,Urine (UA) 3+ (Negative); Ketones,Urine Negative (Negative); Leukocyte Esterase,Urine Large (Negative); Nitrite,Urine Negative (Negative); Protein,Urine 1+ (Negative); RBC,Urine 16 /hpf (0-5); Specific Gravity,Urine 1.019 (1.001-1.035); Squamous Epithelial Cell,Urine 2 /hpf (0-4); Urobilinogen,Urine <2.0 mg/dL (<2.0); WBC,Urine 71 /hpf (0-5)
[2023-10-21 06:09] LABS: Glucose,Whole Blood 94 mg/dL (70-110)
[2023-10-21 08:28] LABS: Basophils # (A) 0.03 X 10*3/uL (0.00-0.10); Basophils % (A) 0.4 %; Eosinophils # (A) 0.21 X 10*3/uL (0.04-0.35); Eosinophils % (A) 2.6 %; HCT 27.7 % (39.6-50.0); HGB 8.4 g/dL (13.0-17.0); Lymphocytes # (A) 0.89 X 10*3/uL (0.90-5.00); Lymphocytes % (A) 11.2 %; MCHC 30.3 g/dL (32.0-37.0); MCV 98.9 FL (80.0-97.0); Mean Platelet Volume 9.9 FL (9.5-12.2); Monocytes # (A) 1.08 X 10*3/uL (0.20-1.00); Monocytes % (A) 13.6 %; NRBC Per 100 WBC 0 X 10*3/uL (0.00-0.01); Neutrophils # (A) 5.67 X 10*3/uL (1.80-7.70); Neutrophils % (A) 71.6 %; Platelet Count 244 X 10*3/uL (140-440); RDW 16.6 % (11.5-14.5); WBC 7.93 X 10*3/uL (4.50-10.00)
[2023-10-21 08:40] LABS: Blood Urea Nitrogen 21.6 mg/dL (9.0-27.0); Glucose 101 mg/dL (70-110)
[2023-10-21 08:41] LABS: ALT 22 U/L (10-49); AST 20 U/L (14-35); Alkaline Phosphatase 104 U/L (41-126); Calcium 8.7 mg/dL (8.7-10.3); Carbon Dioxide 27.2 mmol/L (21.6-31.8); Chloride 106 mmol/L (96-109); Globulin 2.5 g/dL (1.6-3.3); Potassium 4.8 mmol/L (3.5-5.5); Sodium 142 mmol/L (135-145); Total Bilirubin <0.2 mg/dL (0.3-1.2); Total Protein 5.5 g/dL (6.2-8.2)
[2023-10-21 11:47] LABS: Glucose,Whole Blood 184 mg/dL (70-110)
--- NOTE | 2023-10-21 11:57 | P.PN ---
Subjective patient is seen for follow-up for acute kidney injury. diarrhea has improved. No significant complaints today. Maintained on Lasix, decreased to 20 mg daily. Objective - Vital Signs Vital signs: Vital Signs Temp 98.5 F 10/21/23 07:19 Pulse 89 10/21/23 07:19 Resp 18 10/21/23 07:19 BP 122/73 10/21/23 07:19 Pulse Ox 91 L 10/21/23 07:19 FiO2 21 10/17/23 08:51 Intake & Output 10/20/23 10/21/23 10/21/23 18:59 06:59 18:59 Output Total 2200 652 Balance -2200 -652 Output: Urine 2200 650 Stool 2 Other: Voiding Method Indwelling Catheter Indwelling Catheter External Catheter # Voids 400 # Bowel Movements 3 1 ABP, PAP, CO, CI - Last Documented Arterial Blood Pressure 151/81 - Exam patient is awake. Alert oriented x 3 Examination lower extremities shows no edema, left BKA - Labs CBC & Chem 7: 10/21/23 05:10 10/21/23 05:10 Labs: Abnormal Lab Results - Last 24 Hours (Table) 10/20/23 10/20/23 10/20/23 Range/Units 16:41 21:01 21:15 RBC (4.40-5.60) X 10*6/uL Hgb (13.0-17.0) g/dL Hct (39.6-50.0) % MCV (80.0-97.0) FL MCHC (32.0-37.0) g/dL RDW (11.5-14.5) % Immature Gran # (0.00-0.04) X 10*3/uL Lymphocytes # (0.90-5.00) X 10*3/uL Monocytes # (0.20-1.00) X 10*3/uL BUN/Creatinine Ratio (12.00-20.00) Ratio POC Glucose (mg/dL) 302 H 269 H (70-110) mg/dL Total Bilirubin (0.3-1.2) mg/dL C-Reactive Protein (0.00-0.80) mg/dL Total Protein (6.2-8.2) g/dL Albumin (3.8-4.9) g/dL Albumin/Globulin Ratio (1.60-3.17) Ratio Urine Protein 1+ H (Negative) Urine Glucose (UA) 3+ H (Negative) Urine Blood Moderate H (Negative) Ur Leukocyte Esterase Large H (Negative) Urine RBC 16 H (0-5) /hpf Urine WBC 71 H (0-5) /hpf Urine Bacteria Rare H (None) /hpf 10/21/23 10/21/23 10/21/23 Range/Units 05:10 05:10 11:45 RBC 2.80 L (4.40-5.60) X 10*6/uL Hgb 8.4 L (13.0-17.0) g/dL Hct 27.7 L (39.6-50.0) % MCV 98.9 H (80.0-97.0) FL MCHC 30.3 L (32.0-37.0) g/dL RDW 16.6 H (11.5-14.5) % Immature Gran # 0.05 H (0.00-0.04) X 10*3/uL Lymphocytes # 0.89 L (0.90-5.00) X 10*3/uL Monocytes # 1.08 H (0.20-1.00) X 10*3/uL BUN/Creatinine Ratio 21.60 H (12.00-20.00) Ratio POC Glucose (mg/dL) 184 H (70-110) mg/dL Total Bilirubin <0.2 L (0.3-1.2) mg/dL C-Reactive Protein 5.50 H (0.00-0.80) mg/dL Total Protein 5.5 L (6.2-8.2) g/dL Albumin 3.0 L (3.8-4.9) g/dL Albumin/Globulin Ratio 1.20 L (1.60-3.17) Ratio Urine Protein (Negative) Urine Glucose (UA) (Negative) Urine Blood (Negative) Ur Leukocyte Esterase (Negative) Urine RBC (0-5) /hpf Urine WBC (0-5) /hpf Urine Bacteria (None) /hpf Assessment and Plan Assessment: 1. Acute kidney injury secondary to ATN secondary to hypotension and hypovolemia. Creatinine 4.38 dated October 01, 2023. It is 1.0 today. Baseline creatinine near 1. No hydronephrosis noted on CT. Restarted on Lasix due to lower extremity edema. now improved. 2. C. difficile colitis maintained on oral vancomycin. 3. Metabolic acidosis secondary to acute kidney injury and GI losses. 4. Septic shock, s/p Levophed. Plan: continue with decreased dose of oral Lasix. Continue to monitor renal function periodically.
--- NOTE | 2023-10-21 12:53 | P.PN ---
Subjective Progress Note Date: 10/21/23 52-year-old male who is seen in the emergency department, October 04, 2023. The patient came in with weakness, mental status changes, and suspected sepsis. The patient recently had a left below the knee amputation, done by Dr. Domínguez, on September 02. 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 The patient was discharged after number days to a local long-term. He came back into the emergency department as mentioned on October 03. He was being treated for a C. difficile infection. He apparently was noted to be febrile, lethargic, and weak, with a low blood pressure. For that reason, he was sent in to the emergency department, and brought in by EMS. I was called by the emergency room physician, who did fluid resuscitation initially, but then started him on some norepinephrine. For that reason, the patient necessitated an admission to the intensive care unit. Currently he is on 2 L of oxygen. He is given D5W with 3 ampoules of sodium bicarb and at 125 cc an hour. His norepinephrine dose is 4 mcg/min. He is currently on IV Flagyl, and oral vancomycin for his C. difficile infection. White count is 21.9, hemoglobin 10.2, hematocrit 32.9, platelet count 199,000. Sodium 139, potassium 4.6, chlorides 119, CO2 9, BUN 99, creatinine 2.96. Glucose is 192. Calcium 8.8, magnesium 2.3. He did test positive here for C. difficile. Chest x-ray is read as normal here. CT of the abdomen and pelvis shows circumferential thickening of the colon throughout its entire length, most compatible with colitis. On today's evaluation of 10/06/2023, the patient is being seen for a follow-up. The patient was moved to the intensive care unit because of ongoing diarrhea and the patient also developed 2 episodes of coffee-ground emesis overnight and the patient is going to undergo an EGD today. The patient is currently on IV Protonix. The patient is NPO. The patient is eating combination IV Flagyl and oral vancomycin regarding acute C. difficile colitis. The patient is currently off pressors. White cell count remains elevated. Remains somewhat encephalopathic although there is improvement in his mentation over the past 12 hours. The white cell count is at 24 with a hemoglobin 9.9 and a platelet count of 198. Sodium is at 140, potassium is 3.8, serum bicarb is improved and is currently up to 21 with a BUN of 80 and a creatinine of 1.9 and the patient is improving in terms of his renal function. The HbA1c is at 7.8. LFTs are normal. Troponins are negative. Most recent blood sugar is 306. The patient is on bicarb infusion which is running at a rate of 125 cc an hour. Serum bicarb is improved. The patient is on Levemir insulin 30 units in the evening and 10 units in the morning along with a NovoLog sliding scale coverage. The patient is currently on oral bicarb supplements. No significant abdominal pain. He does have a large anterior abdominal wall ventral hernia. On 10/07/2023, the patient is being seen for a follow-up. The patient continues to have episodes of diarrhea and the patient remains on a combination of oral vancomycin 500 mg p.o. 4 times daily and IV metronidazole. The patient's abdomen is mildly tender. The white cell count is still elevated at 30.5 with a hemoglobin 10.3 and a platelet count of 65. Creatinine is improving is currently down to 1.64 with a BUN of 78 and a sodium levels at 139. The patient remains on normal saline at a rate of 100 cc an hour. Overnight, the patient had to be placed on pressors and the patient is currently on norepinephrine at 0.05 mcg/kg/min. The patient had a positive fluid balance of 1.8 L over the past 24 hours. The patient underwent an EGD yesterday and the patient was found to have gastritis and biopsies were taken. The patient remains on IV Protonix. Diet will be provided today. Rest of medications remain unchanged. He remains on Levemir 30 units in the evening and 10 units in the morning along with NovoLog 5 units with meals. No other significant events overnight. Blood cultures been negative. General surgery is on the case. 10/08/2023, the patient continues to have liquidy diarrhea. The patient also has some flatulence. Remains on IV Flagyl and oral vancomycin. He is on room air oxygen. White cell count is improving and currently down to 20.5 with a hemoglobin 9.8 and a platelet count of 223. Creatinine is also improving and is down to 1.34 with a BUN of 51. Sodium level is at 137, serum bicarb is at 20. Blood sugars at 282. The patient remains on DuoNeb. Furthermore, the patient was taken off the oral vancomycin the patient was switched to Dificid. Rest of the medication remain unchanged. The patient remains on low-dose pressors and the patient is still requiring low-dose norepinephrine which is running 0.02 mcg/kg/min. IV fluids are in the form of normal saline at rate of 100 cc an hour. This is a medication remains unchanged. He remains on Levemir insulin 30 units at nighttime and 10 units in the morning in addition to sliding scale coverage. He is on Lasix 40 mg p.o. daily. 10/09/2023, I am seeing the patient for a follow-up. This patient is on oral Dificid and IV Flagyl. He was transferred out of the intensive care unit yesterday. He remains hemodynamically stable. White cell count continues to improve and is currently down to 17 with a hemoglobin 9.5. BUN 35 with a creatinine of 1.08 and a sodium levels at 136. Afebrile. Hemodynamically stable. No other significant events overnight. Rest of medications remain unchanged. He remains on IV fluid normal saline at rate of 100 cc an hour. The serum bicarb is currently at 18. On today's evaluation of 10/10/2023, I am seeing the patient for a follow-up. The patient is doing well. No active diarrhea. No nausea vomiting or abdominal pain. Clinically stable. Hemodynamically stable. Serum bicarb is currently at 15 and this was attributed to metabolic acidosis. BUN 30 creatinine 1.2 and sodium is at 136. White cell count is improved and the patient's white cell count is down to 14.7 with a hemoglobin of 9.7. The patient remains on IV Flagy l and oral Dificid for C. difficile colitis. The patient is also receiving bicarb tablets 650 mg p.o. twice a day. The patient remains on room air oxygen. He was able to sit up in a chair today. Calm and comfortable. On today's evaluation of 10/11/2023, patient is stable. No active diarrhea. H emodynamically stable. White cell count is down to 17.5 with a hemoglobin 9.6 and the patient remains on Dificid. The patient remains on room air oxygen. No nausea but no vomiting. No abdominal pain. No chest pain. Rest of the medication shmuel unchanged and the patient remains on oral bicarb supplements. Serum bicarb is at 15 and a sodium levels at 136 with potassium level of 4.1. No other significant events over the night. The patient remains on Lasix 40 mg p.o. daily. Insulin doses remain unchanged. On 10/12/2023, the patient is having liquidy stool 4-6 episodes on a daily basis. Remains on Dificid. Labs from today are still pending. Nevertheless, the patient was started on has been progressive improving and spent down to 15.5. No nausea. No emesis. Serum protein and albumin levels are low and the 4.0 and 1.8 respectively. The patient has developed also scrotal edema evaluated by urology. No other changes in the medication. No edema lower extremities bilaterally. The patient remains on room air oxygen. He was also given Questran 4 g p.o. twice daily. The patient is seen today October 13, 2023 in follow-up on the regular medical floor. He is awake and alert in no acute distress. He is maintaining O2 saturations in the 90s on room air. He denies any worsening shortness of breath, cough or congestion. He is still having ongoing issues with diarrhea. He is in isolation precautions due to his C. difficile colitis. He remains on Dificid. Blood cultures revealed no growth. White count 11.1. Hemoglobin 8.4. Platelets 222. Sodium 136. Potassium 3.5. Bicarb 19. BUN 15. Creatinine 0.89. Glucose 236. He remains on sodium bicarbonate tablets. The patient is seen today October 14, 2023 in follow-up on the regular medical floor. He is currently resting in bed. Awake and alert in no acute distress. Maintaining good O2 saturation in the 90s on room air. No worsening shortness of breath, cough or congestion. He is continuing to have loose bowel movements. Sodium 141. Potassium 3.7. Bicarb 20. BUN 18. Creatinine 0.9. Glucose 126. He is continued on Questran and Dificid. Remains on sodium bicarbonate tablets. The patient is seen today October 15, 2023 in follow-up on the regular medical floor. He is awake and alert in no acute distress. Resting in bed. He is continuing to have issues with diarrhea. He is having skin breakdown on the buttocks due to the continued diarrhea. He declined fecal management system. He remains on Questran and Dificid. He is maintaining good O2 saturations in the 90s on room air. He has been afebrile. Hemodynamically stable. Glucose 151. Blood cultures revealed no growth. The patient is seen today October 16, 2023 in follow-up on the regular medical floor. He is currently resting in bed. Awake and alert in no acute distress. He is maintaining O2 saturations in the 90s on room air. He is afebrile. Hemodynamically stable. He is still having issues with diarrhea. He still declines a fecal management system. He is having some breakdown of the skin on his buttocks. Blood cultures revealed no growth. White count 8.8. Hemoglobin 8.9. Platelets 275. Sodium 143. Potassium 3.9. Bicarb 21. BUN 22. Creatinine 0.9. Glucose 98. He remains on Dificid. The patient is seen today October 17, 2023 in follow-up on the regular medical floor. He is awake and alert in no acute distress. Maintaining O2 saturation in the 90s on room air. Resting in bed. He is still having episodes of diarrhea but they have diminished. He is treated with Bismatrol. Continued on Dificid. He remains on heparin for DVT prophylaxis. Abdominal x-ray pending for today. Blood cultures revealed no growth. White count 9.2. Hemoglobin 9.7. Platelets 323. Sodium 139. Potassium 4.0. Bicarb 28. BUN 23. Creatinine 0.87. Glucose 80. The patient is seen today October 18, 2023 in follow-up on the regular medical floor. He is currently resting in bed. Awake and alert in no acute distress. Continues to maintain good O2 saturations in the 90s on room air. He did have a reported 8 bowel movements through the night again. He has completed his 20 doses of Dificid. Remains on Pepto-Bismol and Questran. Abdominal x-ray revealed a nonspecific bowel gas pattern without evidence of an acute process. Fecal material and gas are demonstrated throughout the colon and rectum. No evidence of pneumoperitoneum. Glucose 76. He remains afebrile. Hemodynamically stable. The patient is seen today October 19, 2023 follow-up on the regular medical floor. He is awake and alert in no acute distress. He continues to maintain good O2 saturations in the 90s on room air. He is continuing to have frequent bowel movements a bit less watery according to staff. He remains on Pepto-Bismol and Questran. He completed Dificid. Being monitored for further leukocytosis or fever. He is on heparin for DVT prophylaxis. Remains on oral diuretics. White count 10.5. Hemoglobin 8.8. Platelets 259. Sodium 139. Potassium 5.1. Bicarb 28. BUN 18. Creatinine 1.0. Glucose 108. He remains afebrile. Hemodynamically stable. The patient is seen today October 20, 2023 in follow-up on the regular medical floor. He is resting comfortably in bed. No worsening shortness of breath, cough or congestion. On room air. White count 10.6. Hemoglobin 8.1. Sodium 140. Potassium 4.4. Bicarb 29. BUN 19. Creatinine 1.0. Glucose 88. He remains on Pepto-Bismol and Questran. Heparin for DVT prophylaxis. The patient is seen today October 21, 2023 in follow-up on the regular medical floor. He is awake and alert in no acute distress. Continues to maintain good O2 saturations in the 90s on room air. According to staff he only had 1 bowel movement yesterday. White count 7.9. Hemoglobin 8.4. Platelets 244. Sodium 142. Potassium 4.8. Bicarb 27. BUN 22. Creatinine 1.0. Glucose 101. He remains on Pepto-Bismol and Questran. Heparin for DVT prophylaxis Objective - Vital Signs Vital signs: Vital Signs Temp 98.5 F 10/21/23 07:19 Pulse 89 10/21/23 07:19 Resp 18 10/21/23 07:19 BP 122/73 10/21/23 07:19 Pulse Ox 91 L 10/21/23 07:19 FiO2 21 10/17/23 08:51 Intake & Output 10/20/23 10/21/23 10/21/23 18:59 06:59 18:59 Output Total 2200 652 Balance -2200 -652 Output: Urine 2200 650 Stool 2 Other: Voiding Method Indwelling Catheter Indwelling Catheter External Catheter # Voids 400 # Bowel Movements 3 1 ABP, PAP, CO, CI - Last Documented Arterial Blood Pressure 151/81 - Exam GENERAL EXAM: Alert, 52-year-old male, resting in bed, in no distress. HEAD: Normocephalic. EYES: Normal reaction of pupils, equal size. NOSE: Clear with pink turbinates. THROAT: No erythema or exudates. NECK: No masses, no JVD. CHEST: No chest wall deformity. LUNGS: Equal air entry with no crackles, wheeze, rhonchi or dullness. CVS: S1 and S2 normal with no audible murmur, regular rhythm. ABDOMEN: No hepatosplenomegaly, normal bowel sounds, no guarding or rigidity. SPINE: No scoliosis or deformity SKIN: Skin breakdown on the buttocks from continued diarrhea, declines fecal management system. CENTRAL NERVOUS SYSTEM: No focal deficits, tone is normal in all 4 extremities. EXTREMITIES: Left BKA. Scrotal edema. There is no peripheral edema. No clu bbing, no cyanosis. Peripheral pulses are intact. - Labs CBC & Chem 7: 10/21/23 05:10 10/21/23 05:10 Labs: Abnormal Lab Results - Last 24 Hours (Table) 10/20/23 10/20/23 10/20/23 Range/Units 16:41 17:48 21:01 RBC (4.40-5.60) X 10*6/uL Hgb (13.0-17.0) g/dL Hct (39.6-50.0) % MCV (80.0-97.0) FL MCHC (32.0-37.0) g/dL RDW (11.5-14.5) % Immature Gran # (0.00-0.04) X 10*3/uL Lymphocytes # (0.90-5.00) X 10*3/uL Monocytes # (0.20-1.00) X 10*3/uL BUN/Creatinine Ratio (12.00-20.00) Ratio POC Glucose (mg/dL) 302 H 269 H (70-110) mg/dL Total Bilirubin (0.3-1.2) mg/dL C-Reactive Protein (0.00-0.80) mg/dL Total Protein (6.2-8.2) g/dL Albumin (3.8-4.9) g/dL Albumin/Globulin Ratio (1.60-3.17) Ratio Urine Protein (Negative) Urine Glucose (UA) (Negative) Urine Blood (Negative) Ur Leukocyte Esterase (Negative) Urine RBC (0-5) /hpf Urine WBC (0-5) /hpf Urine Bacteria (None) /hpf C. difficile (EIA) Intrp Positive A (Negative) 10/20/23 10/21/23 10/21/23 Range/Units 21:15 05:10 05:10 RBC 2.80 L (4.40-5.60) X 10*6/uL Hgb 8.4 L (13.0-17.0) g/dL Hct 27.7 L (39.6-50.0) % MCV 98.9 H (80.0-97.0) FL MCHC 30.3 L (32.0-37.0) g/dL RDW 16.6 H (11.5-14.5) % Immature Gran # 0.05 H (0.00-0.04) X 10*3/uL Lymphocytes # 0.89 L (0.90-5.00) X 10*3/uL Monocytes # 1.08 H (0.20-1.00) X 10*3/uL BUN/Creatinine Ratio 21.60 H (12.00-20.00) Ratio POC Glucose (mg/dL) (70-110) mg/dL Total Bilirubin <0.2 L (0.3-1.2) mg/dL C-Reactive Protein 5.50 H (0.00-0.80) mg/dL Total Protein 5.5 L (6.2-8.2) g/dL Albumin 3.0 L (3.8-4.9) g/dL Albumin/Globulin Ratio 1.20 L (1.60-3.17) Ratio Urine Protein 1+ H (Negative) Urine Glucose (UA) 3+ H (Negative) Urine Blood Moderate H (Negative) Ur Leukocyte Esterase Large H (Negative) Urine RBC 16 H (0-5) /hpf Urine WBC 71 H (0-5) /hpf Urine Bacteria Rare H (None) /hpf C. difficile (EIA) Intrp (Negative) 10/21/23 Range/Units 11:45 RBC (4.40-5.60) X 10*6/uL Hgb (13.0-17.0) g/dL Hct (39.6-50.0) % MCV (80.0-97.0) FL MCHC (32.0-37.0) g/dL RDW (11.5-14.5) % Immature Gran # (0.00-0.04) X 10*3/uL Lymphocytes # (0.90-5.00) X 10*3/uL Monocytes # (0.20-1.00) X 10*3/uL BUN/Creatinine Ratio (12.00-20.00) Ratio POC Glucose (mg/dL) 184 H (70-110) mg/dL Total Bilirubin (0.3-1.2) mg/dL C-Reactive Protein (0.00-0.80) mg/dL Total Protein (6.2-8.2) g/dL Albumin (3.8-4.9) g/dL Albumin/Globulin Ratio (1.60-3.17) Ratio Urine Protein (Negative) Urine Glucose (UA) (Negative) Urine Blood (Negative) Ur Leukocyte Esterase (Negative) Urine RBC (0-5) /hpf Urine WBC (0-5) /hpf Urine Bacteria (None) /hpf C. difficile (EIA) Intrp (Negative) Assessment and Plan Assessment: Acute C. difficile colitis, completed 20 doses of Dificid and completed Flagyl. He had been initiated on Bismatrol. The patient had another 8 bowel movements throughout the night. Abdominal x-ray revealed a nonspecific bowel gas pattern without evidence of an acute process. Fecal material and gas are demonstrated throughout the colon and rectum. No evidence of pneumoperitoneum. Sepsis/hypotension, secondary to severe diarrhea, from C. difficile colitis, recovered Acute mental status changes, likely on the basis of septic encephalopathy, recovered None anion gap metabolic acidosis, recovered Coffee-ground emesis x 2 and the patient, post EGD that revealed gastritis Acute leukocytosis, secondary to C. difficile colitis, improved and down to 10.6 Acute kidney injury, recovered and creatinine 1.0 Diabetes mellitus Recent left BKA, September 03, 2023 History of hypertension. History of hyperlipidemia. Nonhealing ulcer, left lower extremity, with subsequent left BKA Prior history of methicillin-resistant Staph aureus infection, and Proteus mirabilis bacteremia and the patient completed a course of Rocephin and vancomycin on outpatient basis at the [facility] Large anterior abdominal wall hernia Scrotal edema, being evaluated by urology Excoriation of the buttocks due to diarrhea. Patient has declined fecal management system Plan: The patient was seen and evaluated Medications and labs reviewed Remains stable and on room air Plan is to return to [facility] I have personally seen and examined the patient, performed the documentation and the assessment and plan as written. Number of minutes spent on the visit: 10.
--- NOTE | 2023-10-21 13:30 | PN ---
PROGRESS NOTE SUBJECTIVE: He states his swelling in his groin is better. PT/OT is getting him up. C diff and his diabetes improving. Acute kidney injury is improving. OBJECTIVE: CARDIOVASCULAR: S1, S2. LUNGS: Transmitted upper sounds. GI: Soft. Scrotal edema is decreased. HEMATOLOGIC: 2+ edema. ASSESSMENT: Clostridium difficile, acute kidney injury, chronic obstructive pulmonary disease. Continue current treatments, dehydration, acute kidney injury, improved. CO2 is improving. PT, OT. Please see further orders. Prognosis guarded. MMODL / IJN: [id number] /
[2023-10-21] MEDS: HYDROcodone/APAP 7.5-325MG 1 EACH TAB PO PRN (15:41)
--- NOTE | 2023-10-21 16:49 | P.PN ---
Subjective Progress Note Date: 10/21/23 Principal diagnosis: Reason for follow-up is C. 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 difficile colitis. On today's evaluation that is 10/21/2023, patient has been afebrile, patient is breathing comfortably and is currently on room air, patient denies having any significant cough no chest pain shortness of breath, patient denies nausea vomiting, the patient already has slowed on per the nursing staff. The patient white count is 7.93, creatinine 1 point 0 repeat stool for C. difficile came back positive blood culture negative Objective - Vital Signs Vital signs: Vital Signs Temp 97.8 F 10/21/23 14:00 Pulse 76 10/21/23 14:00 Resp 18 10/21/23 14:00 BP 114/67 10/21/23 14:00 Pulse Ox 94 L 10/21/23 14:00 FiO2 21 10/17/23 08:51 Intake & Output 10/20/23 10/21/23 10/21/23 18:59 06:59 18:59 Output Total 2200 652 Balance -2200 -652 Output: Urine 2200 650 Stool 2 Other: Voiding Method Indwelling Catheter Indwelling Catheter External Catheter # Voids 400 # Bowel Movements 3 1 ABP, PAP, CO, CI - Last Documented Arterial Blood Pressure 151/81 - Exam Middle-age male lying in bed in no distress Respiratory system unlabored breathing decreased breath sound the base Heart S1-S2 regular Abdominal soft no tenderness Extremities left BKA stump wound is currently dressed no drainage - Labs CBC & Chem 7: 10/21/23 05:10 10/21/23 05:10 Labs: Abnormal Lab Results - Last 24 Hours (Table) 10/20/23 10/20/23 10/20/23 Range/Units 17:48 21:01 21:15 RBC (4.40-5.60) X 10*6/uL Hgb (13.0-17.0) g/dL Hct (39.6-50.0) % MCV (80.0-97.0) FL MCHC (32.0-37.0) g/dL RDW (11.5-14.5) % Immature Gran # (0.00-0.04) X 10*3/uL Lymphocytes # (0.90-5.00) X 10*3/uL Monocytes # (0.20-1.00) X 10*3/uL BUN/Creatinine Ratio (12.00-20.00) Ratio POC Glucose (mg/dL) 269 H (70-110) mg/dL Total Bilirubin (0.3-1.2) mg/dL C-Reactive Protein (0.00-0.80) mg/dL Total Protein (6.2-8.2) g/dL Albumin (3.8-4.9) g/dL Albumin/Globulin Ratio (1.60-3.17) Ratio Urine Protein 1+ H (Negative) Urine Glucose (UA) 3+ H (Negative) Urine Blood Moderate H (Negative) Ur Leukocyte Esterase Large H (Negative) Urine RBC 16 H (0-5) /hpf Urine WBC 71 H (0-5) /hpf Urine Bacteria Rare H (None) /hpf C. difficile (EIA) Intrp Positive A (Negative) 10/21/23 10/21/23 10/21/23 Range/Units 05:10 05:10 11:45 RBC 2.80 L (4.40-5.60) X 10*6/uL Hgb 8.4 L (13.0-17.0) g/dL Hct 27.7 L (39.6-50.0) % MCV 98.9 H (80.0-97.0) FL MCHC 30.3 L (32.0-37.0) g/dL RDW 16.6 H (11.5-14.5) % Immature Gran # 0.05 H (0.00-0.04) X 10*3/uL Lymphocytes # 0.89 L (0.90-5.00) X 10*3/uL Monocytes # 1.08 H (0.20-1.00) X 10*3/uL BUN/Creatinine Ratio 21.60 H (12.00-20.00) Ratio POC Glucose (mg/dL) 184 H (70-110) mg/dL Total Bilirubin <0.2 L (0.3-1.2) mg/dL C-Reactive Protein 5.50 H (0.00-0.80) mg/dL Total Protein 5.5 L (6.2-8.2) g/dL Albumin 3.0 L (3.8-4.9) g/dL Albumin/Globulin Ratio 1.20 L (1.60-3.17) Ratio Urine Protein (Negative) Urine Glucose (UA) (Negative) Urine Blood (Negative) Ur Leukocyte Esterase (Negative) Urine RBC (0-5) /hpf Urine WBC (0-5) /hpf Urine Bacteria (None) /hpf C. difficile (EIA) Intrp (Negative) Assessment and Plan (1) Leukocytosis Current Visit: Yes Status: Acute Code(s): D72.829 - ELEVATED WHITE BLOOD CELL COUNT, UNSPECIFIED SNOMED Code(s): 590520953 (2) C. difficile colitis Current Visit: Yes Status: Acute Code(s): A04.72 - ENTEROCOLITIS D/T CLOSTRIDIUM DIFFICILE, NOT SPCF RECUR SNOMED Code(s): 265426916 Plan: 1-patient did have a new fever could be related to his Domínguez catheter, Domínguez catheter has been discontinued urine is mildly positive blood culture repeat so far pending repeat stool for C. difficile came back positive will add oral vancomycin and see clinical response Dictation was produced using [employer] dictation software. please excuse any grammatical, word or spelling errors. Time with Patient: Less than 30
[2023-10-21 17:02] LABS: Glucose,Whole Blood 213 mg/dL (70-110)
[2023-10-21] MEDS: VANCOMYCIN 125 MG CAPSULE PO SCH (17:36)
[2023-10-21 21:00] LABS: Glucose,Whole Blood 173 mg/dL (70-110)
[2023-10-21] MEDS: SODIUM FERRIC GLUCONAT-SUCROSE 125 MG in SODIUM CHLORIDE 0.9% 100 ML IVPB SCH (21:49)
--- NOTE | 2023-10-21 22:46 | PN ---
PROGRESS NOTE 52-year-old white male with history of anasarca type changes, diastolic heart failure, severe protein-calorie malnutrition. His diet improved. diabetic medications. He sats 94 on room air to 91 on room air, temp 97.9, respiratory rate 16 to 18, blood pressure 116 to 118 over 70 to 80s. Cardiovascular: S1, S2. Lungs: Decreased breath sounds x4. Hemoglobin is decreased to 8.4. We will give him IV Venofer. Monitor for signs of bleeding. His albumin is improved from 1.7 a few weeks ago to 3.0. OBJECTIVE: VITAL SIGNS: Blood pressure has been low, 114 to 118 to 122 over 70s. CARDIOVASCULAR: S1, S2. LUNGS: Transmitted upper airway sounds. GI: Distended. HEMATOLOGIC: 2+ edema. AKA of left leg. ASSESSMENT: Chronic obstructive pulmonary disease, anasarca type changes, protein calorie malnutrition, Clostridium difficile colitis, bowel movements today, started back on oral vancomycin. He is on Questran for diarrhea. Prognosis guarded. Dr. Mendez's recommendations. Continue PT/OT. MMODL / IJN: [id number] /
[2023-10-22 06:30] LABS: Glucose,Whole Blood 83 mg/dL (70-110)
[2023-10-22 08:41] LABS: Basophils # (A) 0.02 X 10*3/uL (0.00-0.10); Basophils % (A) 0.4 %; Eosinophils # (A) 0.21 X 10*3/uL (0.04-0.35); Eosinophils % (A) 3.8 %; HGB 8.9 g/dL (13.0-17.0); Lymphocytes # (A) 0.84 X 10*3/uL (0.90-5.00); MCH 29.2 pg (27.0-32.0); MCHC 28.7 g/dL (32.0-37.0); MCV 101.6 FL (80.0-97.0); Mean Platelet Volume 10.1 FL (9.5-12.2); Monocytes # (A) 0.87 X 10*3/uL (0.20-1.00); Monocytes % (A) 15.5 %; NRBC Per 100 WBC 0 X 10*3/uL (0.00-0.01); Neutrophils # (A) 3.63 X 10*3/uL (1.80-7.70); Neutrophils % (A) 64.8 %; Platelet Count 264 X 10*3/uL (140-440); RBC 3.05 X 10*6/uL (4.40-5.60); RDW 16.5 % (11.5-14.5)
[2023-10-22 08:52] LABS: ALT 23 U/L (10-49); AST 19 U/L (14-35); Albumin 3.1 g/dL (3.8-4.9); Albumin/Globulin Ratio 1.15 Ratio (1.60-3.17); Alkaline Phosphatase 117 U/L (41-126); BUN/Creat Ratio 29.44 Ratio (12.00-20.00); Blood Urea Nitrogen 26.5 mg/dL (9.0-27.0); Carbon Dioxide 28.5 mmol/L (21.6-31.8); Chloride 105 mmol/L (96-109); Globulin 2.7 g/dL (1.6-3.3); Glucose 80 mg/dL (70-110); Sodium 142 mmol/L (135-145); Total Bilirubin <0.2 mg/dL (0.3-1.2); Total Protein 5.8 g/dL (6.2-8.2)
[2023-10-22 11:51] LABS: Glucose,Whole Blood 191 mg/dL (70-110)
--- NOTE | 2023-10-22 13:46 | P.PN ---
Subjective Progress Note Date: 10/22/23 52-year-old male who is seen in the emergency department, October 04, 2023. The patient came in with weakness, mental status changes, and suspected sepsis. The patient recently had a left below the knee amputation, done by Dr. Domínguez, on September 02. 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 The patient was discharged after number days to a local residential. He came back into the emergency department as mentioned on October 03. He was being treated for a C. difficile infection. He apparently was noted to be febrile, lethargic, and weak, with a low blood pressure. For that reason, he was sent in to the emergency department, and brought in by EMS. I was called by the emergency room physician, who did fluid resuscitation initially, but then started him on some norepinephrine. For that reason, the patient necessitated an admission to the intensive care unit. Currently he is on 2 L of oxygen. He is given D5W with 3 ampoules of sodium bicarb and at 125 cc an hour. His norepinephrine dose is 4 mcg/min. He is currently on IV Flagyl, and oral vancomycin for his C. difficile infection. White count is 21.9, hemoglobin 10.2, hematocrit 32.9, platelet count 199,000. Sodium 139, potassium 4.6, chlorides 119, CO2 9, BUN 99, creatinine 2.96. Glucose is 192. Calcium 8.8, magnesium 2.3. He did test positive here for C. difficile. Chest x-ray is read as normal here. CT of the abdomen and pelvis shows circumferential thickening of the colon throughout its entire length, most compatible with colitis. On today's evaluation of 10/06/2023, the patient is being seen for a follow-up. The patient was moved to the intensive care unit because of ongoing diarrhea and the patient also developed 2 episodes of coffee-ground emesis overnight and the patient is going to undergo an EGD today. The patient is currently on IV Protonix. The patient is NPO. The patient is eating combination IV Flagyl and oral vancomycin regarding acute C. difficile colitis. The patient is currently off pressors. White cell count remains elevated. Remains somewhat encephalopathic although there is improvement in his mentation over the past 12 hours. The white cell count is at 24 with a hemoglobin 9.9 and a platelet count of 198. Sodium is at 140, potassium is 3.8, serum bicarb is improved and is currently up to 21 with a BUN of 80 and a creatinine of 1.9 and the patient is improving in terms of his renal function. The HbA1c is at 7.8. LFTs are normal. Troponins are negative. Most recent blood sugar is 306. The patient is on bicarb infusion which is running at a rate of 125 cc an hour. Serum bicarb is improved. The patient is on Levemir insulin 30 units in the evening and 10 units in the morning along with a NovoLog sliding scale coverage. The patient is currently on oral bicarb supplements. No significant abdominal pain. He does have a large anterior abdominal wall ventral hernia. On 10/07/2023, the patient is being seen for a follow-up. The patient continues to have episodes of diarrhea and the patient remains on a combination of oral vancomycin 500 mg p.o. 4 times daily and IV metronidazole. The patient's abdomen is mildly tender. The white cell count is still elevated at 30.5 with a hemoglobin 10.3 and a platelet count of 65. Creatinine is improving is currently down to 1.64 with a BUN of 78 and a sodium levels at 139. The patient remains on normal saline at a rate of 100 cc an hour. Overnight, the patient had to be placed on pressors and the patient is currently on norepinephrine at 0.05 mcg/kg/min. The patient had a positive fluid balance of 1.8 L over the past 24 hours. The patient underwent an EGD yesterday and the patient was found to have gastritis and biopsies were taken. The patient remains on IV Protonix. Diet will be provided today. Rest of medications remain unchanged. He remains on Levemir 30 units in the evening and 10 units in the morning along with NovoLog 5 units with meals. No other significant events overnight. Blood cultures been negative. General surgery is on the case. 10/08/2023, the patient continues to have liquidy diarrhea. The patient also has some flatulence. Remains on IV Flagyl and oral vancomycin. He is on room air oxygen. White cell count is improving and currently down to 20.5 with a hemoglobin 9.8 and a platelet count of 223. Creatinine is also improving and is down to 1.34 with a BUN of 51. Sodium level is at 137, serum bicarb is at 20. Blood sugars at 282. The patient remains on DuoNeb. Furthermore, the patient was taken off the oral vancomycin the patient was switched to Dificid. Rest of the medication remain unchanged. The patient remains on low-dose pressors and the patient is still requiring low-dose norepinephrine which is running 0.02 mcg/kg/min. IV fluids are in the form of normal saline at rate of 100 cc an hour. This is a medication remains unchanged. He remains on Levemir insulin 30 units at nighttime and 10 units in the morning in addition to sliding scale coverage. He is on Lasix 40 mg p.o. daily. 10/09/2023, I am seeing the patient for a follow-up. This patient is on oral Dificid and IV Flagyl. He was transferred out of the intensive care unit yesterday. He remains hemodynamically stable. White cell count continues to improve and is currently down to 17 with a hemoglobin 9.5. BUN 35 with a creatinine of 1.08 and a sodium levels at 136. Afebrile. Hemodynamically stable. No other significant events overnight. Rest of medications remain unchanged. He remains on IV fluid normal saline at rate of 100 cc an hour. The serum bicarb is currently at 18. On today's evaluation of 10/10/2023, I am seeing the patient for a follow-up. The patient is doing well. No active diarrhea. No nausea vomiting or abdominal pain. Clinically stable. Hemodynamically stable. Serum bicarb is currently at 15 and this was attributed to metabolic acidosis. BUN 30 creatinine 1.2 and sodium is at 136. White cell count is improved and the patient's white cell count is down to 14.7 with a hemoglobin of 9.7. The patient remains on IV Flagy l and oral Dificid for C. difficile colitis. The patient is also receiving bicarb tablets 650 mg p.o. twice a day. The patient remains on room air oxygen. He was able to sit up in a chair today. Calm and comfortable. On today's evaluation of 10/11/2023, patient is stable. No active diarrhea. H emodynamically stable. White cell count is down to 17.5 with a hemoglobin 9.6 and the patient remains on Dificid. The patient remains on room air oxygen. No nausea but no vomiting. No abdominal pain. No chest pain. Rest of the medication shmuel unchanged and the patient remains on oral bicarb supplements. Serum bicarb is at 15 and a sodium levels at 136 with potassium level of 4.1. No other significant events over the night. The patient remains on Lasix 40 mg p.o. daily. Insulin doses remain unchanged. On 10/12/2023, the patient is having liquidy stool 4-6 episodes on a daily basis. Remains on Dificid. Labs from today are still pending. Nevertheless, the patient was started on has been progressive improving and spent down to 15.5. No nausea. No emesis. Serum protein and albumin levels are low and the 4.0 and 1.8 respectively. The patient has developed also scrotal edema evaluated by urology. No other changes in the medication. No edema lower extremities bilaterally. The patient remains on room air oxygen. He was also given Questran 4 g p.o. twice daily. The patient is seen today October 13, 2023 in follow-up on the regular medical floor. He is awake and alert in no acute distress. He is maintaining O2 saturations in the 90s on room air. He denies any worsening shortness of breath, cough or congestion. He is still having ongoing issues with diarrhea. He is in isolation precautions due to his C. difficile colitis. He remains on Dificid. Blood cultures revealed no growth. White count 11.1. Hemoglobin 8.4. Platelets 222. Sodium 136. Potassium 3.5. Bicarb 19. BUN 15. Creatinine 0.89. Glucose 236. He remains on sodium bicarbonate tablets. The patient is seen today October 14, 2023 in follow-up on the regular medical floor. He is currently resting in bed. Awake and alert in no acute distress. Maintaining good O2 saturation in the 90s on room air. No worsening shortness of breath, cough or congestion. He is continuing to have loose bowel movements. Sodium 141. Potassium 3.7. Bicarb 20. BUN 18. Creatinine 0.9. Glucose 126. He is continued on Questran and Dificid. Remains on sodium bicarbonate tablets. The patient is seen today October 15, 2023 in follow-up on the regular medical floor. He is awake and alert in no acute distress. Resting in bed. He is continuing to have issues with diarrhea. He is having skin breakdown on the buttocks due to the continued diarrhea. He declined fecal management system. He remains on Questran and Dificid. He is maintaining good O2 saturations in the 90s on room air. He has been afebrile. Hemodynamically stable. Glucose 151. Blood cultures revealed no growth. The patient is seen today October 16, 2023 in follow-up on the regular medical floor. He is currently resting in bed. Awake and alert in no acute distress. He is maintaining O2 saturations in the 90s on room air. He is afebrile. Hemodynamically stable. He is still having issues with diarrhea. He still declines a fecal management system. He is having some breakdown of the skin on his buttocks. Blood cultures revealed no growth. White count 8.8. Hemoglobin 8.9. Platelets 275. Sodium 143. Potassium 3.9. Bicarb 21. BUN 22. Creatinine 0.9. Glucose 98. He remains on Dificid. The patient is seen today October 17, 2023 in follow-up on the regular medical floor. He is awake and alert in no acute distress. Maintaining O2 saturation in the 90s on room air. Resting in bed. He is still having episodes of diarrhea but they have diminished. He is treated with Bismatrol. Continued on Dificid. He remains on heparin for DVT prophylaxis. Abdominal x-ray pending for today. Blood cultures revealed no growth. White count 9.2. Hemoglobin 9.7. Platelets 323. Sodium 139. Potassium 4.0. Bicarb 28. BUN 23. Creatinine 0.87. Glucose 80. The patient is seen today October 18, 2023 in follow-up on the regular medical floor. He is currently resting in bed. Awake and alert in no acute distress. Continues to maintain good O2 saturations in the 90s on room air. He did have a reported 8 bowel movements through the night again. He has completed his 20 doses of Dificid. Remains on Pepto-Bismol and Questran. Abdominal x-ray revealed a nonspecific bowel gas pattern without evidence of an acute process. Fecal material and gas are demonstrated throughout the colon and rectum. No evidence of pneumoperitoneum. Glucose 76. He remains afebrile. Hemodynamically stable. The patient is seen today October 19, 2023 follow-up on the regular medical floor. He is awake and alert in no acute distress. He continues to maintain good O2 saturations in the 90s on room air. He is continuing to have frequent bowel movements a bit less watery according to staff. He remains on Pepto-Bismol and Questran. He completed Dificid. Being monitored for further leukocytosis or fever. He is on heparin for DVT prophylaxis. Remains on oral diuretics. White count 10.5. Hemoglobin 8.8. Platelets 259. Sodium 139. Potassium 5.1. Bicarb 28. BUN 18. Creatinine 1.0. Glucose 108. He remains afebrile. Hemodynamically stable. The patient is seen today October 20, 2023 in follow-up on the regular medical floor. He is resting comfortably in bed. No worsening shortness of breath, cough or congestion. On room air. White count 10.6. Hemoglobin 8.1. Sodium 140. Potassium 4.4. Bicarb 29. BUN 19. Creatinine 1.0. Glucose 88. He remains on Pepto-Bismol and Questran. Heparin for DVT prophylaxis. The patient is seen today October 21, 2023 in follow-up on the regular medical floor. He is awake and alert in no acute distress. Continues to maintain good O2 saturations in the 90s on room air. According to staff he only had 1 bowel movement yesterday. White count 7.9. Hemoglobin 8.4. Platelets 244. Sodium 142. Potassium 4.8. Bicarb 27. BUN 22. Creatinine 1.0. Glucose 101. He remains on Pepto-Bismol and Questran. Heparin for DVT prophylaxis The patient is seen today October 22, 2023 in follow-up on the regular medical floor. He is resting in bed. Awake and alert in no acute distress. Is maintaining O2 saturations in the 90s on room air. He is afebrile. Hemodynamically stable. Blood cultures revealed no growth. Urine culture revealed no growth. White count 5.6. Hemoglobin 8.9. Platelets 264. Sodium 142. Potassium 5.0. Bicarb 29. BUN 27. Creatinine 0.9. Glucose 80. Follow- up C. difficile screen after 20 doses of Dificid remains positive. He is on oral vancomycin and Questran. Continued on heparin for DVT prophylaxis. Objective - Vital Signs Vital signs: Vital Signs Temp 97.5 F L 10/22/23 08:00 Pulse 88 10/22/23 08:00 Resp 17 10/22/23 08:00 BP 115/68 10/22/23 08:00 Pulse Ox 88 L 10/22/23 08:00 FiO2 21 10/17/23 08:51 Intake & Output 10/21/23 10/22/23 10/22/23 18:59 06:59 18:59 Output Total 1550 Balance -1550 Output: Urine 1550 Other: Voiding Method External Catheter External Catheter External Catheter # Voids 550 # Bowel Movements 1 3 1 ABP, PAP, CO, CI - Last Documented Arterial Blood Pressure 151/81 - Exam GENERAL EXAM: Alert, oriented 52-year-old male, resting in bed, comfortable in n o acute distress. HEAD: Normocephalic. EYES: Normal reaction of pupils, equal size. NOSE: Clear with pink turbinates. THROAT: No erythema or exudates. NECK: No masses, no JVD. CHEST: No chest wall deformity. LUNGS: Equal air entry with no crackles, wheeze, rhonchi or dullness. CVS: S1 and S2 normal with no audible murmur, regular rhythm. ABDOMEN: No hepatosplenomegaly, normal bowel sounds, no guarding or rigidity. SPINE: No scoliosis or deformity SKIN: Skin breakdown on the buttocks from continued diarrhea, declines fecal management system. CENTRAL NERVOUS SYSTEM: No focal deficits, tone is normal in all 4 extremities. EXTREMITIES: Left BKA. Scrotal edema. There is no peripheral edema. No clubbing, no cyanosis. Peripheral pulses are intact. - Labs CBC & Chem 7: 10/22/23 04:50 10/22/23 04:50 Labs: Abnormal Lab Results - Last 24 Hours (Table) 10/21/23 10/21/23 10/22/23 Range/Units 17:01 20:58 04:50 RBC 3.05 L (4.40-5.60) X 10*6/uL Hgb 8.9 L (13.0-17.0) g/dL Hct 31.0 L (39.6-50.0) % MCV 101.6 H (80.0-97.0) FL MCHC 28.7 L (32.0-37.0) g/dL RDW 16.5 H (11.5-14.5) % Lymphocytes # 0.84 L (0.90-5.00) X 10*3/uL BUN/Creatinine Ratio (12.00-20.00) Ratio POC Glucose (mg/dL) 213 H 173 H (70-110) mg/dL Total Bilirubin (0.3-1.2) mg/dL Total Protein (6.2-8.2) g/dL Albumin (3.8-4.9) g/dL Albumin/Globulin Ratio (1.60-3.17) Ratio 10/22/23 10/22/23 Range/Units 04:50 11:50 RBC (4.40-5.60) X 10*6/uL Hgb (13.0-17.0) g/dL Hct (39.6-50.0) % MCV (80.0-97.0) FL MCHC (32.0-37.0) g/dL RDW (11.5-14.5) % Lymphocytes # (0.90-5.00) X 10*3/uL BUN/Creatinine Ratio 29.44 H (12.00-20.00) Ratio POC Glucose (mg/dL) 191 H (70-110) mg/dL Total Bilirubin <0.2 L (0.3-1.2) mg/dL Total Protein 5.8 L (6.2-8.2) g/dL Albumin 3.1 L (3.8-4.9) g/dL Albumin/Globulin Ratio 1.15 L (1.60-3.17) Ratio Microbiology - Last 24 Hours (Table) 10/20/23 21:15 Urine Culture - Final Urine,Voided 10/20/23 18:42 Blood Culture - Preliminary Blood Assessment and Plan Assessment: Acute C. difficile colitis, completed 20 doses of Dificid and completed Flagyl. He had been initiated on Bismatrol. The patient had another 8 bowel movements throughout the night. Abdominal x-ray revealed a nonspecific bowel gas pattern without evidence of an acute process. Fecal material and gas are demonstrated throughout the colon and rectum. No evidence of pneumoperitoneum. Follow-up C. difficile screen was still positive on 10/20/2023. Patient is back on oral vancomycin Sepsis/hypotension, secondary to severe diarrhea, from C. difficile colitis, recovered Acute mental status changes, likely on the basis of septic encephalopathy, recovered None anion gap metabolic acidosis, recovered Coffee-ground emesis x 2 and the patient, post EGD that revealed gastritis Acute leukocytosis, secondary to C. difficile colitis, improved and down to 10.6 Acute kidney injury, recovered and creatinine 1.0 Diabetes mellitus Recent left BKA, September 03, 2023 History of hypertension. History of hyperlipidemia. Nonhealing ulcer, left lower extremity, with subsequent left BKA Prior history of methicillin-resistant Staph aureus infection, and Proteus mirabilis bacteremia and the patient completed a course of Rocephin and vancomycin on outpatient basis at the [facility] Large anterior abdominal wall hernia Scrotal edema, being evaluated by urology Excoriation of the buttocks due to diarrhea. Patient has declined fecal management system Plan: The patient was seen and evaluated Medications and labs reviewed On oral vancomycin and Questran Plan is to return to [facility] at discharge I have personally seen and examined the patient, performed the documentation and the assessment and plan as written. Number of minutes spent on the visit: 10.
[2023-10-22 16:27] LABS: Glucose,Whole Blood 183 mg/dL (70-110)
[2023-10-22 20:54] LABS: Glucose,Whole Blood 203 mg/dL (70-110)
[2023-10-22] MEDS: NYSTATIN 100,000UNIT/GM CREAM 30 GM TUBE TOPICAL SCH (21:44)
[2023-10-23 06:20] LABS: Glucose,Whole Blood 136 mg/dL (70-110)
[2023-10-23] MEDS: HYDROcodone/APAP 10-325MG 1 EACH TAB PO PRN (09:09)
[2023-10-23 11:39] LABS: Glucose,Whole Blood 165 mg/dL (70-110)
--- NOTE | 2023-10-23 13:12 | P.PN ---
Subjective patient is seen for follow-up for acute kidney injury. diarrhea has improved. No significant complaints today. Maintained on Lasix, decreased to 20 mg daily. Objective - Vital Signs Vital signs: Vital Signs Temp 97.5 F L 10/23/23 08:05 Pulse 76 10/23/23 08:05 Resp 16 10/23/23 08:05 BP 107/72 10/23/23 08:05 Pulse Ox 92 L 10/23/23 08:05 FiO2 21 10/17/23 08:51 Intake & Output 10/22/23 10/23/23 10/23/23 18:59 06:59 18:59 Intake Total 118 Output Total 700 1900 Balance -700 -1900 118 Intake: Oral 118 Output: Urine 700 1900 Other: Voiding Method External Catheter External Catheter External Catheter # Bowel Movements 5 2 ABP, PAP, CO, CI - Last Documented Arterial Blood Pressure 151/81 - Exam patient is awake. Alert oriented x 3 abdomen is soft nontender Alert oriented 3. Examination lower extremities shows no edema, left BKA - Labs CBC & Chem 7: 10/22/23 04:50 10/22/23 04:50 Labs: Abnormal Lab Results - Last 24 Hours (Table) 10/22/23 10/22/23 10/23/23 Range/Units 16:26 20:52 06:17 POC Glucose (mg/dL) 183 H 203 H 136 H (70-110) mg/dL 10/23/23 Range/Units 11:37 POC Glucose (mg/dL) 165 H (70-110) mg/dL Microbiology - Last 24 Hours (Table) 10/20/23 18:42 Blood Culture - Preliminary Blood 10/20/23 21:15 Urine Culture - Final Urine,Voided Assessment and Plan Assessment: 1. Acute kidney injury secondary to ATN secondary to hypotension and hypovolemia. Creatinine 4.38 dated October 01, 2023. It is now at 1.0 Baseline creatinine near 1. No hydronephrosis noted on CT. Restarted on Lasix due to lower extremity edema. now improved. 2. C. difficile colitis maintained on oral vancomycin. 3. Metabolic acidosis secondary to acute kidney injury and GI losses. 4. Septic shock, s/p Levophed. improved. Plan: continue with decreased dose of oral Lasix. Continue to monitor renal function periodically.
--- NOTE | 2023-10-23 13:37 | P.PN ---
Subjective Progress Note Date: 10/23/23 52-year-old male who is seen in the emergency department, October 04, 2023. The patient came in with weakness, mental status changes, and suspected sepsis. The patient recently had a left below the knee amputation, done by Dr. Domínguez, on September 02. 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 The patient was discharged after number days to a local assisted. He came back into the emergency department as mentioned on October 03. He was being treated for a C. difficile infection. He apparently was noted to be febrile, lethargic, and weak, with a low blood pressure. For that reason, he was sent in to the emergency department, and brought in by EMS. I was called by the emergency room physician, who did fluid resuscitation initially, but then started him on some norepinephrine. For that reason, the patient necessitated an admission to the intensive care unit. Currently he is on 2 L of oxygen. He is given D5W with 3 ampoules of sodium bicarb and at 125 cc an hour. His norepinephrine dose is 4 mcg/min. He is currently on IV Flagyl, and oral vancomycin for his C. difficile infection. White count is 21.9, hemoglobin 10.2, hematocrit 32.9, platelet count 199,000. Sodium 139, potassium 4.6, chlorides 119, CO2 9, BUN 99, creatinine 2.96. Glucose is 192. Calcium 8.8, magnesium 2.3. He did test positive here for C. difficile. Chest x-ray is read as normal here. CT of the abdomen and pelvis shows circumferential thickening of the colon throughout its entire length, most compatible with colitis. On today's evaluation of 10/06/2023, the patient is being seen for a follow-up. The patient was moved to the intensive care unit because of ongoing diarrhea and the patient also developed 2 episodes of coffee-ground emesis overnight and the patient is going to undergo an EGD today. The patient is currently on IV Protonix. The patient is NPO. The patient is eating combination IV Flagyl and oral vancomycin regarding acute C. difficile colitis. The patient is currently off pressors. White cell count remains elevated. Remains somewhat encephalopathic although there is improvement in his mentation over the past 12 hours. The white cell count is at 24 with a hemoglobin 9.9 and a platelet count of 198. Sodium is at 140, potassium is 3.8, serum bicarb is improved and is currently up to 21 with a BUN of 80 and a creatinine of 1.9 and the patient is improving in terms of his renal function. The HbA1c is at 7.8. LFTs are normal. Troponins are negative. Most recent blood sugar is 306. The patient is on bicarb infusion which is running at a rate of 125 cc an hour. Serum bicarb is improved. The patient is on Levemir insulin 30 units in the evening and 10 units in the morning along with a NovoLog sliding scale coverage. The patient is currently on oral bicarb supplements. No significant abdominal pain. He does have a large anterior abdominal wall ventral hernia. On 10/07/2023, the patient is being seen for a follow-up. The patient continues to have episodes of diarrhea and the patient remains on a combination of oral vancomycin 500 mg p.o. 4 times daily and IV metronidazole. The patient's abdomen is mildly tender. The white cell count is still elevated at 30.5 with a hemoglobin 10.3 and a platelet count of 65. Creatinine is improving is currently down to 1.64 with a BUN of 78 and a sodium levels at 139. The patient remains on normal saline at a rate of 100 cc an hour. Overnight, the patient had to be placed on pressors and the patient is currently on norepinephrine at 0.05 mcg/kg/min. The patient had a positive fluid balance of 1.8 L over the past 24 hours. The patient underwent an EGD yesterday and the patient was found to have gastritis and biopsies were taken. The patient remains on IV Protonix. Diet will be provided today. Rest of medications remain unchanged. He remains on Levemir 30 units in the evening and 10 units in the morning along with NovoLog 5 units with meals. No other significant events overnight. Blood cultures been negative. General surgery is on the case. 10/08/2023, the patient continues to have liquidy diarrhea. The patient also has some flatulence. Remains on IV Flagyl and oral vancomycin. He is on room air oxygen. White cell count is improving and currently down to 20.5 with a hemoglobin 9.8 and a platelet count of 223. Creatinine is also improving and is down to 1.34 with a BUN of 51. Sodium level is at 137, serum bicarb is at 20. Blood sugars at 282. The patient remains on DuoNeb. Furthermore, the patient was taken off the oral vancomycin the patient was switched to Dificid. Rest of the medication remain unchanged. The patient remains on low-dose pressors and the patient is still requiring low-dose norepinephrine which is running 0.02 mcg/kg/min. IV fluids are in the form of normal saline at rate of 100 cc an hour. This is a medication remains unchanged. He remains on Levemir insulin 30 units at nighttime and 10 units in the morning in addition to sliding scale coverage. He is on Lasix 40 mg p.o. daily. 10/09/2023, I am seeing the patient for a follow-up. This patient is on oral Dificid and IV Flagyl. He was transferred out of the intensive care unit yesterday. He remains hemodynamically stable. White cell count continues to improve and is currently down to 17 with a hemoglobin 9.5. BUN 35 with a creatinine of 1.08 and a sodium levels at 136. Afebrile. Hemodynamically stable. No other significant events overnight. Rest of medications remain unchanged. He remains on IV fluid normal saline at rate of 100 cc an hour. The serum bicarb is currently at 18. On today's evaluation of 10/10/2023, I am seeing the patient for a follow-up. The patient is doing well. No active diarrhea. No nausea vomiting or abdominal pain. Clinically stable. Hemodynamically stable. Serum bicarb is currently at 15 and this was attributed to metabolic acidosis. BUN 30 creatinine 1.2 and sodium is at 136. White cell count is improved and the patient's white cell count is down to 14.7 with a hemoglobin of 9.7. The patient remains on IV Flagy l and oral Dificid for C. difficile colitis. The patient is also receiving bicarb tablets 650 mg p.o. twice a day. The patient remains on room air oxygen. He was able to sit up in a chair today. Calm and comfortable. On today's evaluation of 10/11/2023, patient is stable. No active diarrhea. H emodynamically stable. White cell count is down to 17.5 with a hemoglobin 9.6 and the patient remains on Dificid. The patient remains on room air oxygen. No nausea but no vomiting. No abdominal pain. No chest pain. Rest of the medication amparo unchanged and the patient remains on oral bicarb supplements. Serum bicarb is at 15 and a sodium levels at 136 with potassium level of 4.1. No other significant events over the night. The patient remains on Lasix 40 mg p.o. daily. Insulin doses remain unchanged. On 10/12/2023, the patient is having liquidy stool 4-6 episodes on a daily basis. Remains on Dificid. Labs from today are still pending. Nevertheless, the patient was started on has been progressive improving and spent down to 15.5. No nausea. No emesis. Serum protein and albumin levels are low and the 4.0 and 1.8 respectively. The patient has developed also scrotal edema evaluated by urology. No other changes in the medication. No edema lower extremities bilaterally. The patient remains on room air oxygen. He was also given Questran 4 g p.o. twice daily. The patient is seen today October 13, 2023 in follow-up on the regular medical floor. He is awake and alert in no acute distress. He is maintaining O2 saturations in the 90s on room air. He denies any worsening shortness of breath, cough or congestion. He is still having ongoing issues with diarrhea. He is in isolation precautions due to his C. difficile colitis. He remains on Dificid. Blood cultures revealed no growth. White count 11.1. Hemoglobin 8.4. Platelets 222. Sodium 136. Potassium 3.5. Bicarb 19. BUN 15. Creatinine 0.89. Glucose 236. He remains on sodium bicarbonate tablets. The patient is seen today October 14, 2023 in follow-up on the regular medical floor. He is currently resting in bed. Awake and alert in no acute distress. Maintaining good O2 saturation in the 90s on room air. No worsening shortness of breath, cough or congestion. He is continuing to have loose bowel movements. Sodium 141. Potassium 3.7. Bicarb 20. BUN 18. Creatinine 0.9. Glucose 126. He is continued on Questran and Dificid. Remains on sodium bicarbonate tablets. The patient is seen today October 15, 2023 in follow-up on the regular medical floor. He is awake and alert in no acute distress. Resting in bed. He is continuing to have issues with diarrhea. He is having skin breakdown on the buttocks due to the continued diarrhea. He declined fecal management system. He remains on Questran and Dificid. He is maintaining good O2 saturations in the 90s on room air. He has been afebrile. Hemodynamically stable. Glucose 151. Blood cultures revealed no growth. The patient is seen today October 16, 2023 in follow-up on the regular medical floor. He is currently resting in bed. Awake and alert in no acute distress. He is maintaining O2 saturations in the 90s on room air. He is afebrile. Hemodynamically stable. He is still having issues with diarrhea. He still declines a fecal management system. He is having some breakdown of the skin on his buttocks. Blood cultures revealed no growth. White count 8.8. Hemoglobin 8.9. Platelets 275. Sodium 143. Potassium 3.9. Bicarb 21. BUN 22. Creatinine 0.9. Glucose 98. He remains on Dificid. The patient is seen today October 17, 2023 in follow-up on the regular medical floor. He is awake and alert in no acute distress. Maintaining O2 saturation in the 90s on room air. Resting in bed. He is still having episodes of diarrhea but they have diminished. He is treated with Bismatrol. Continued on Dificid. He remains on heparin for DVT prophylaxis. Abdominal x-ray pending for today. Blood cultures revealed no growth. White count 9.2. Hemoglobin 9.7. Platelets 323. Sodium 139. Potassium 4.0. Bicarb 28. BUN 23. Creatinine 0.87. Glucose 80. The patient is seen today October 18, 2023 in follow-up on the regular medical floor. He is currently resting in bed. Awake and alert in no acute distress. Continues to maintain good O2 saturations in the 90s on room air. He did have a reported 8 bowel movements through the night again. He has completed his 20 doses of Dificid. Remains on Pepto-Bismol and Questran. Abdominal x-ray revealed a nonspecific bowel gas pattern without evidence of an acute process. Fecal material and gas are demonstrated throughout the colon and rectum. No evidence of pneumoperitoneum. Glucose 76. He remains afebrile. Hemodynamically stable. The patient is seen today October 19, 2023 follow-up on the regular medical floor. He is awake and alert in no acute distress. He continues to maintain good O2 saturations in the 90s on room air. He is continuing to have frequent bowel movements a bit less watery according to staff. He remains on Pepto-Bismol and Questran. He completed Dificid. Being monitored for further leukocytosis or fever. He is on heparin for DVT prophylaxis. Remains on oral diuretics. White count 10.5. Hemoglobin 8.8. Platelets 259. Sodium 139. Potassium 5.1. Bicarb 28. BUN 18. Creatinine 1.0. Glucose 108. He remains afebrile. Hemodynamically stable. The patient is seen today October 20, 2023 in follow-up on the regular medical floor. He is resting comfortably in bed. No worsening shortness of breath, cough or congestion. On room air. White count 10.6. Hemoglobin 8.1. Sodium 140. Potassium 4.4. Bicarb 29. BUN 19. Creatinine 1.0. Glucose 88. He remains on Pepto-Bismol and Questran. Heparin for DVT prophylaxis. The patient is seen today October 21, 2023 in follow-up on the regular medical floor. He is awake and alert in no acute distress. Continues to maintain good O2 saturations in the 90s on room air. According to staff he only had 1 bowel movement yesterday. White count 7.9. Hemoglobin 8.4. Platelets 244. Sodium 142. Potassium 4.8. Bicarb 27. BUN 22. Creatinine 1.0. Glucose 101. He remains on Pepto-Bismol and Questran. Heparin for DVT prophylaxis The patient is seen today October 22, 2023 in follow-up on the regular medical floor. He is resting in bed. Awake and alert in no acute distress. Is maintaining O2 saturations in the 90s on room air. He is afebrile. Hemodynamically stable. Blood cultures revealed no growth. Urine culture revealed no growth. White count 5.6. Hemoglobin 8.9. Platelets 264. Sodium 142. Potassium 5.0. Bicarb 29. BUN 27. Creatinine 0.9. Glucose 80. Follow- up C. difficile screen after 20 doses of Dificid remains positive. He is on oral vancomycin and Questran. Continued on heparin for DVT prophylaxis. The patient is seen today October 23, 2023 in follow-up on the regular medical floor. He remains awake and alert in no acute distress. Maintaining O2 saturations in the 90s on 2 L/min per nasal cannula. He is afebrile. Hemodynamically stable. Blood and urine cultures revealed no growth. Glucose 165. He remains on Questran and oral vancomycin. Objective - Vital Signs Vital signs: Vital Signs Temp 97.5 F L 10/23/23 08:05 Pulse 76 10/23/23 08:05 Resp 16 10/23/23 08:05 BP 107/72 10/23/23 08:05 Pulse Ox 92 L 10/23/23 08:05 FiO2 21 10/17/23 08:51 Intake & Output 10/22/23 10/23/23 10/23/23 18:59 06:59 18:59 Intake Total 118 Output Total 700 1900 Balance -700 -1900 118 Intake: Oral 118 Output: Urine 700 1900 Other: Voiding Method External Catheter External Catheter External Catheter # Bowel Movements 5 2 ABP, PAP, CO, CI - Last Documented Arterial Blood Pressure 151/81 - Exam GENERAL EXAM: Alert, oriented 52-year-old male, on 2 L nasal cannula, in no acute distress. HEAD: Normocephalic. EYES: Normal reaction of pupils, equal size. NOSE: Clear with pink turbinates. THROAT: No erythema or exudates. NECK: No masses, no JVD. CHEST: No chest wall deformity. LUNGS: Equal air entry with no crackles, wheeze, rhonchi or dullness. CVS: S1 and S2 normal with no audible murmur, regular rhythm. ABDOMEN: No hepatosplenomegaly, normal bowel sounds, no guarding or rigidity. SPINE: No scoliosis or deformity SKIN: Skin breakdown on the buttocks from continued diarrhea, declines fecal management system. CENTRAL NERVOUS SYSTEM: No focal deficits, tone is normal in all 4 extremities. EXTREMITIES: Left BKA. Scrotal edema. There is no peripheral edema. No clubbing, no cyanosis. Peripheral pulses are intact. - Labs CBC & Chem 7: 10/22/23 04:50 10/22/23 04:50 Labs: Abnormal Lab Results - Last 24 Hours (Table) 10/22/23 10/22/23 10/23/23 Range/Units 16:26 20:52 06:17 POC Glucose (mg/dL) 183 H 203 H 136 H (70-110) mg/dL 10/23/23 Range/Units 11:37 POC Glucose (mg/dL) 165 H (70-110) mg/dL Microbiology - Last 24 Hours (Table) 10/20/23 18:42 Blood Culture - Preliminary Blood 10/20/23 21:15 Urine Culture - Final Urine,Voided Assessment and Plan Assessment: Acute C. difficile colitis, completed 20 doses of Dificid and completed Flagyl. He had been initiated on Bismatrol. The patient had another 8 bowel movements throughout the night. Abdominal x-ray revealed a nonspecific bowel gas pattern without evidence of an acute process. Fecal material and gas are demonstrated throughout the colon and rectum. No evidence of pneumoperitoneum. Follow-up C. difficile screen was still positive on 10/20/2023. Patient is back on oral vancomycin Sepsis/hypotension, secondary to severe diarrhea, from C. difficile colitis, recovered Acute mental status changes, likely on the basis of septic encephalopathy, recovered None anion gap metabolic acidosis, recovered Coffee-ground emesis x 2 and the patient, post EGD that revealed gastritis Acute leukocytosis, secondary to C. difficile colitis, improved and down to 10.6 Acute kidney injury, recovered and creatinine 1.0 Diabetes mellitus Recent left BKA, September 03, 2023 History of hypertension. History of hyperlipidemia. Nonhealing ulcer, left lower extremity, with subsequent left BKA Prior history of methicillin-resistant Staph aureus infection, and Proteus mirabilis bacteremia and the patient completed a course of Rocephin and vancomycin on outpatient basis at the [facility] Large anterior abdominal wall hernia Scrotal edema, being evaluated by urology Excoriation of the buttocks due to diarrhea. Patient has declined fecal management system Plan: The patient was seen and evaluated Amparo stable and on 2 L nasal cannula Medications reviewed On oral vancomycin and Questran Plan is to return to [facility] I have personally seen and examined the patient, performed the documentation and the assessment and plan as written. Number of minutes spent on the visit: 10.
--- NOTE | 2023-10-23 16:29 | P.PN ---
Subjective Progress Note Date: 10/22/23 Principal diagnosis: Reason for follow-up is C. 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 difficile colitis. On today's evaluation that is 10/22/2023, Patient is afebrile this morning and denies any chills, patient mention breathing comfortably and is currently on 2 L nasal cannula oxygen patient denies any chest pain occasional cough patient denies any abdominal pain, no nausea no vomiting, diarrhea has slowed down. Patient white count is 5.60 creatinine 0 point 9 repeat blood and urine culture negative Objective - Vital Signs Vital signs: Vital Signs Temp 97.5 F L 10/22/23 12:30 Pulse 65 10/22/23 12:30 Resp 17 10/22/23 12:30 BP 120/73 10/22/23 12:30 Pulse Ox 94 L 10/22/23 12:30 FiO2 21 10/17/23 08:51 Intake & Output 10/21/23 10/22/23 10/22/23 18:59 06:59 18:59 Output Total 1550 Balance -1550 Output: Urine 1550 Other: Voiding Method External Catheter External Catheter External Catheter # Voids 550 # Bowel Movements 1 3 1 ABP, PAP, CO, CI - Last Documented Arterial Blood Pressure 151/81 - Exam Middle-age male lying in bed in no distress Respiratory system unlabored breathing decreased breath sound the base Heart S1-S2 regular Abdominal soft no tenderness Extremities left BKA stump wound is currently dressed no drainage - Labs CBC & Chem 7: 10/22/23 04:50 10/22/23 04:50 Labs: Abnormal Lab Results - Last 24 Hours (Table) 10/21/23 10/21/23 10/22/23 Range/Units 17:01 20:58 04:50 RBC 3.05 L (4.40-5.60) X 10*6/uL Hgb 8.9 L (13.0-17.0) g/dL Hct 31.0 L (39.6-50.0) % MCV 101.6 H (80.0-97.0) FL MCHC 28.7 L (32.0-37.0) g/dL RDW 16.5 H (11.5-14.5) % Lymphocytes # 0.84 L (0.90-5.00) X 10*3/uL BUN/Creatinine Ratio (12.00-20.00) Ratio POC Glucose (mg/dL) 213 H 173 H (70-110) mg/dL Total Bilirubin (0.3-1.2) mg/dL Total Protein (6.2-8.2) g/dL Albumin (3.8-4.9) g/dL Albumin/Globulin Ratio (1.60-3.17) Ratio 10/22/23 10/22/23 Range/Units 04:50 11:50 RBC (4.40-5.60) X 10*6/uL Hgb (13.0-17.0) g/dL Hct (39.6-50.0) % MCV (80.0-97.0) FL MCHC (32.0-37.0) g/dL RDW (11.5-14.5) % Lymphocytes # (0.90-5.00) X 10*3/uL BUN/Creatinine Ratio 29.44 H (12.00-20.00) Ratio POC Glucose (mg/dL) 191 H (70-110) mg/dL Total Bilirubin <0.2 L (0.3-1.2) mg/dL Total Protein 5.8 L (6.2-8.2) g/dL Albumin 3.1 L (3.8-4.9) g/dL Albumin/Globulin Ratio 1.15 L (1.60-3.17) Ratio Microbiology - Last 24 Hours (Table) 10/20/23 21:15 Urine Culture - Final Urine,Voided 10/20/23 18:42 Blood Culture - Preliminary Blood Assessment and Plan (1) Leukocytosis Current Visit: Yes Status: Acute Code(s): D72.829 - ELEVATED WHITE BLOOD CELL COUNT, UNSPECIFIED SNOMED Code(s): 809575050 (2) C. difficile colitis Current Visit: Yes Status: Acute Code(s): A04.72 - ENTEROCOLITIS D/T CLOSTRIDIUM DIFFICILE, NOT SPCF RECUR SNOMED Code(s): 477775369 Plan: 1-patient did have a new fever could be related to his Domínguez catheter, Domínguez catheter has been discontinued urine is mildly positive blood culture repeat so far pending repeat stool for C. difficile came back positive 2-patient to continue oral vancomycin along with symptomatic treatment of diarrhea and monitor clinical course closely Dictation was produced using [employer] dictation software. please excuse any grammatical, word or spelling errors.
--- NOTE | 2023-10-23 16:30 | P.PN ---
Subjective Progress Note Date: 10/23/23 Principal diagnosis: Reason for follow-up is C. 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 difficile colitis. On today's evaluation that is 10/23/2023,the patient denies any fever or any chills, patient is breathing comfortably on 2 L nasal oxygen, the patient denies chest pain shortness of breath and no significant cough, patient denies abdominal pain, no nausea vomiting and mentioned that he has slowed down. No new lab has been obtained today Objective - Vital Signs Vital signs: Vital Signs Temp 97.4 F L 10/23/23 14:00 Pulse 76 10/23/23 14:00 Resp 17 10/23/23 14:00 BP 121/75 10/23/23 14:00 Pulse Ox 94 L 10/23/23 14:00 FiO2 21 10/17/23 08:51 Intake & Output 10/22/23 10/23/23 10/23/23 18:59 06:59 18:59 Intake Total 478 Output Total 700 1900 850 Balance -700 -1900 -372 Weight 103.4 kg Intake: Oral 478 Output: Urine 700 1900 850 Other: Voiding Method External Catheter External Catheter External Catheter # Bowel Movements 5 2 ABP, PAP, CO, CI - Last Documented Arterial Blood Pressure 151/81 - Exam Middle-age male lying in bed in no distress Respiratory system unlabored breathing decreased breath sound the base Heart S1-S2 regular Abdominal soft no tenderness Extremities left BKA stump wound is currently dressed no drainage - Labs CBC & Chem 7: 10/22/23 04:50 10/22/23 04:50 Labs: Abnormal Lab Results - Last 24 Hours (Table) 10/22/23 10/23/23 10/23/23 Range/Units 20:52 06:17 11:37 POC Glucose (mg/dL) 203 H 136 H 165 H (70-110) mg/dL Microbiology - Last 24 Hours (Table) 10/20/23 18:42 Blood Culture - Preliminary Blood Assessment and Plan (1) Leukocytosis Current Visit: Yes Status: Acute Code(s): D72.829 - ELEVATED WHITE BLOOD CELL COUNT, UNSPECIFIED SNOMED Code(s): 993400826 (2) C. difficile colitis Current Visit: Yes Status: Acute Code(s): A04.72 - ENTEROCOLITIS D/T CLOSTRIDIUM DIFFICILE, NOT SPCF RECUR SNOMED Code(s): 447468845 Plan: 1-patient did have a new fever could be related to his Domínguez catheter, Domínguez catheter has been discontinued urine is mildly positive and blood as well as a repeat urine culture so far negative repeat stool for C. difficile came back positive 2-patient did have improvement in diarrhea and resolution of fever to continue oral vancomycin x 10 days on discharge along with symptomatic treatment of diarrhea and monitor clinical course closely Dictation was produced using [employer] dictation software. please excuse any grammatical, word or spelling errors. Time with Patient: Less than 30
[2023-10-23 17:09] LABS: Glucose,Whole Blood 167 mg/dL (70-110)
[2023-10-23 20:44] LABS: Glucose,Whole Blood 287 mg/dL (70-110)
--- NOTE | 2023-10-24 02:13 | PN ---
PROGRESS NOTE A 52-year-old white male, remains to have scrotal edema, ascites, some diastolic dysfunction, COPD, remains improved. His protein-calorie malnutrition is much better. Albumin is up over 3 from 1.4. His temp 97.3, pulse 80, respiratory rate 16 to 18, blood pressure 129/75. He has C diff colitis. He has increasing diarrhea. He has had 10 days of treatment and now is on oral vancomycin. Wait for Dr. Mendez to reassess the morning prior to going to rehab, may be planning on how much diarrhea he is having. He is still getting rehydrated. Prognosis guarded. Continue treatment for C diff, controlled diarrhea. Rehydrate. PT, OT. As he has a recent amputation, he will have to go to more rehab as he is not able to take care of himself yet, but he is getting close, he needs to learn how to walk with his leg and turn and come back to the bed as he can go 1 direction currently. Probably go back to [facility] in the near future once he is cleared by Dr. Mendez. MMODL / IJN: [id number] /
[2023-10-24 05:51] LABS: Glucose,Whole Blood 213 mg/dL (70-110)
[2023-10-24 12:04] LABS: Glucose,Whole Blood 137 mg/dL (70-110)
--- NOTE | 2023-10-24 14:31 | P.PN ---
Subjective Progress Note Date: 10/24/23 52-year-old male who is seen in the emergency department, October 04, 2023. The patient came in with weakness, mental status changes, and suspected sepsis. The patient recently had a left below the knee amputation, done by Dr. Domínguez, on September 02. 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 The patient was discharged after number days to a local [facility]. He came back into the emergency department as mentioned on October 03. He was being treated for a C. difficile infection. He apparently was noted to be febrile, lethargic, and weak, with a low blood pressure. For that reason, he was sent in to the emergency department, and brought in by EMS. I was called by the emergency room physician, who did fluid resuscitation initially, but then started him on some norepinephrine. For that reason, the patient necessitated an admission to the intensive care unit. Currently he is on 2 L of oxygen. He is given D5W with 3 ampoules of sodium bicarb and at 125 cc an hour. His norepinephrine dose is 4 mcg/min. He is currently on IV Flagyl, and oral vancomycin for his C. difficile infection. White count is 21.9, hemoglobin 10.2, hematocrit 32.9, platelet count 199,000. Sodium 139, potassium 4.6, chlorides 119, CO2 9, BUN 99, creatinine 2.96. Glucose is 192. Calcium 8.8, magnesium 2.3. He did test positive here for C. difficile. Chest x-ray is read as normal here. CT of the abdomen and pelvis shows circumferential thickening of the colon throughout its entire length, most compatible with colitis. On today's evaluation of 10/06/2023, the patient is being seen for a follow-up. The patient was moved to the intensive care unit because of ongoing diarrhea and the patient also developed 2 episodes of coffee-ground emesis overnight and the patient is going to undergo an EGD today. The patient is currently on IV Protonix. The patient is NPO. The patient is eating combination IV Flagyl and oral vancomycin regarding acute C. difficile colitis. The patient is currently off pressors. White cell count remains elevated. Remains somewhat encephalopathic although there is improvement in his mentation over the past 12 hours. The white cell count is at 24 with a hemoglobin 9.9 and a platelet count of 198. Sodium is at 140, potassium is 3.8, serum bicarb is improved and is currently up to 21 with a BUN of 80 and a creatinine of 1.9 and the patient is improving in terms of his renal function. The HbA1c is at 7.8. LFTs are normal. Troponins are negative. Most recent blood sugar is 306. The patient is on bicarb infusion which is running at a rate of 125 cc an hour. Serum bicarb is improved. The patient is on Levemir insulin 30 units in the evening and 10 units in the morning along with a NovoLog sliding scale coverage. The patient is currently on oral bicarb supplements. No significant abdominal pain. He does have a large anterior abdominal wall ventral hernia. On 10/07/2023, the patient is being seen for a follow-up. The patient continues to have episodes of diarrhea and the patient remains on a combination of oral vancomycin 500 mg p.o. 4 times daily and IV metronidazole. The patient's abdomen is mildly tender. The white cell count is still elevated at 30.5 with a hemoglobin 10.3 and a platelet count of 65. Creatinine is improving is currently down to 1.64 with a BUN of 78 and a sodium levels at 139. The patient remains on normal saline at a rate of 100 cc an hour. Overnight, the patient had to be placed on pressors and the patient is currently on norepinephrine at 0.05 mcg/kg/min. The patient had a positive fluid balance of 1.8 L over the past 24 hours. The patient underwent an EGD yesterday and the patient was found to have gastritis and biopsies were taken. The patient remains on IV Protonix. Diet will be provided today. Rest of medications remain unchanged. He remains on Levemir 30 units in the evening and 10 units in the morning along with NovoLog 5 units with meals. No other significant events overnight. Blood cultures been negative. General surgery is on the case. 10/08/2023, the patient continues to have liquidy diarrhea. The patient also has some flatulence. Remains on IV Flagyl and oral vancomycin. He is on room air oxygen. White cell count is improving and currently down to 20.5 with a hemoglobin 9.8 and a platelet count of 223. Creatinine is also improving and is down to 1.34 with a BUN of 51. Sodium level is at 137, serum bicarb is at 20. Blood sugars at 282. The patient remains on DuoNeb. Furthermore, the patient was taken off the oral vancomycin the patient was switched to Dificid. Rest of the medication remain unchanged. The patient remains on low-dose pressors and the patient is still requiring low-dose norepinephrine which is running 0.02 mcg/kg/min. IV fluids are in the form of normal saline at rate of 100 cc an hour. This is a medication remains unchanged. He remains on Levemir insulin 30 units at nighttime and 10 units in the morning in addition to sliding scale coverage. He is on Lasix 40 mg p.o. daily. 10/09/2023, I am seeing the patient for a follow-up. This patient is on oral Dificid and IV Flagyl. He was transferred out of the intensive care unit yesterday. He remains hemodynamically stable. White cell count continues to improve and is currently down to 17 with a hemoglobin 9.5. BUN 35 with a creatinine of 1.08 and a sodium levels at 136. Afebrile. Hemodynamically stable. No other significant events overnight. Rest of medications remain unchanged. He remains on IV fluid normal saline at rate of 100 cc an hour. The serum bicarb is currently at 18. On today's evaluation of 10/10/2023, I am seeing the patient for a follow-up. The patient is doing well. No active diarrhea. No nausea vomiting or abdominal pain. Clinically stable. Hemodynamically stable. Serum bicarb is currently at 15 and this was attributed to metabolic acidosis. BUN 30 creatinine 1.2 and sodium is at 136. White cell count is improved and the patient's white cell count is down to 14.7 with a hemoglobin of 9.7. The patient remains on IV Flagy l and oral Dificid for C. difficile colitis. The patient is also receiving bicarb tablets 650 mg p.o. twice a day. The patient remains on room air oxygen. He was able to sit up in a chair today. Calm and comfortable. On today's evaluation of 10/11/2023, patient is stable. No active diarrhea. H emodynamically stable. White cell count is down to 17.5 with a hemoglobin 9.6 and the patient remains on Dificid. The patient remains on room air oxygen. No nausea but no vomiting. No abdominal pain. No chest pain. Rest of the medication shmuel unchanged and the patient remains on oral bicarb supplements. Serum bicarb is at 15 and a sodium levels at 136 with potassium level of 4.1. No other significant events over the night. The patient remains on Lasix 40 mg p.o. daily. Insulin doses remain unchanged. On 10/12/2023, the patient is having liquidy stool 4-6 episodes on a daily basis. Remains on Dificid. Labs from today are still pending. Nevertheless, the patient was started on has been progressive improving and spent down to 15.5. No nausea. No emesis. Serum protein and albumin levels are low and the 4.0 and 1.8 respectively. The patient has developed also scrotal edema evaluated by urology. No other changes in the medication. No edema lower extremities bilaterally. The patient remains on room air oxygen. He was also given Questran 4 g p.o. twice daily. The patient is seen today October 13, 2023 in follow-up on the regular medical floor. He is awake and alert in no acute distress. He is maintaining O2 saturations in the 90s on room air. He denies any worsening shortness of breath, cough or congestion. He is still having ongoing issues with diarrhea. He is in isolation precautions due to his C. difficile colitis. He remains on Dificid. Blood cultures revealed no growth. White count 11.1. Hemoglobin 8.4. Platelets 222. Sodium 136. Potassium 3.5. Bicarb 19. BUN 15. Creatinine 0.89. Glucose 236. He remains on sodium bicarbonate tablets. The patient is seen today October 14, 2023 in follow-up on the regular medical floor. He is currently resting in bed. Awake and alert in no acute distress. Maintaining good O2 saturation in the 90s on room air. No worsening shortness of breath, cough or congestion. He is continuing to have loose bowel movements. Sodium 141. Potassium 3.7. Bicarb 20. BUN 18. Creatinine 0.9. Glucose 126. He is continued on Questran and Dificid. Remains on sodium bicarbonate tablets. The patient is seen today October 15, 2023 in follow-up on the regular medical floor. He is awake and alert in no acute distress. Resting in bed. He is continuing to have issues with diarrhea. He is having skin breakdown on the buttocks due to the continued diarrhea. He declined fecal management system. He remains on Questran and Dificid. He is maintaining good O2 saturations in the 90s on room air. He has been afebrile. Hemodynamically stable. Glucose 151. Blood cultures revealed no growth. The patient is seen today October 16, 2023 in follow-up on the regular medical floor. He is currently resting in bed. Awake and alert in no acute distress. He is maintaining O2 saturations in the 90s on room air. He is afebrile. Hemodynamically stable. He is still having issues with diarrhea. He still declines a fecal management system. He is having some breakdown of the skin on his buttocks. Blood cultures revealed no growth. White count 8.8. Hemoglobin 8.9. Platelets 275. Sodium 143. Potassium 3.9. Bicarb 21. BUN 22. Creatinine 0.9. Glucose 98. He remains on Dificid. The patient is seen today October 17, 2023 in follow-up on the regular medical floor. He is awake and alert in no acute distress. Maintaining O2 saturation in the 90s on room air. Resting in bed. He is still having episodes of diarrhea but they have diminished. He is treated with Bismatrol. Continued on Dificid. He remains on heparin for DVT prophylaxis. Abdominal x-ray pending for today. Blood cultures revealed no growth. White count 9.2. Hemoglobin 9.7. Platelets 323. Sodium 139. Potassium 4.0. Bicarb 28. BUN 23. Creatinine 0.87. Glucose 80. The patient is seen today October 18, 2023 in follow-up on the regular medical floor. He is currently resting in bed. Awake and alert in no acute distress. Continues to maintain good O2 saturations in the 90s on room air. He did have a reported 8 bowel movements through the night again. He has completed his 20 doses of Dificid. Remains on Pepto-Bismol and Questran. Abdominal x-ray revealed a nonspecific bowel gas pattern without evidence of an acute process. Fecal material and gas are demonstrated throughout the colon and rectum. No evidence of pneumoperitoneum. Glucose 76. He remains afebrile. Hemodynamically stable. The patient is seen today October 19, 2023 follow-up on the regular medical floor. He is awake and alert in no acute distress. He continues to maintain good O2 saturations in the 90s on room air. He is continuing to have frequent bowel movements a bit less watery according to staff. He remains on Pepto-Bismol and Questran. He completed Dificid. Being monitored for further leukocytosis or fever. He is on heparin for DVT prophylaxis. Remains on oral diuretics. White count 10.5. Hemoglobin 8.8. Platelets 259. Sodium 139. Potassium 5.1. Bicarb 28. BUN 18. Creatinine 1.0. Glucose 108. He remains afebrile. Hemodynamically stable. The patient is seen today October 20, 2023 in follow-up on the regular medical floor. He is resting comfortably in bed. No worsening shortness of breath, cough or congestion. On room air. White count 10.6. Hemoglobin 8.1. Sodium 140. Potassium 4.4. Bicarb 29. BUN 19. Creatinine 1.0. Glucose 88. He remains on Pepto-Bismol and Questran. Heparin for DVT prophylaxis. The patient is seen today October 21, 2023 in follow-up on the regular medical floor. He is awake and alert in no acute distress. Continues to maintain good O2 saturations in the 90s on room air. According to staff he only had 1 bowel movement yesterday. White count 7.9. Hemoglobin 8.4. Platelets 244. Sodium 142. Potassium 4.8. Bicarb 27. BUN 22. Creatinine 1.0. Glucose 101. He remains on Pepto-Bismol and Questran. Heparin for DVT prophylaxis The patient is seen today October 22, 2023 in follow-up on the regular medical floor. He is resting in bed. Awake and alert in no acute distress. Is maintaining O2 saturations in the 90s on room air. He is afebrile. Hemodynamically stable. Blood cultures revealed no growth. Urine culture revealed no growth. White count 5.6. Hemoglobin 8.9. Platelets 264. Sodium 142. Potassium 5.0. Bicarb 29. BUN 27. Creatinine 0.9. Glucose 80. Follow- up C. difficile screen after 20 doses of Dificid remains positive. He is on oral vancomycin and Questran. Continued on heparin for DVT prophylaxis. The patient is seen today October 23, 2023 in follow-up on the regular medical floor. He remains awake and alert in no acute distress. Maintaining O2 saturations in the 90s on 2 L/min per nasal cannula. He is afebrile. Hemodynamically stable. Blood and urine cultures revealed no growth. Glucose 165. He remains on Questran and oral vancomycin. Patient is seen today October 24, 2023 in follow-up on the regular medical floor. He is resting comfortably in bed. Awake and alert in no acute distress. Maintaining good O2 saturations in the 90s on room air. He is continued on oral Vanco mycin and Questran. Glucose 137. Remains on heparin for DVT prophylaxis. Continued on oral diuretics. Only 1 bowel movement documented today. Objective - Vital Signs Vital signs: Vital Signs Temp 97.9 F 10/24/23 07:09 Pulse 76 10/24/23 07:09 Resp 17 10/24/23 07:09 BP 130/76 10/24/23 07:09 Pulse Ox 96 10/24/23 07:09 FiO2 21 10/17/23 08:51 Intake & Output 10/23/23 10/24/23 10/24/23 18:59 06:59 18:59 Intake Total 478 Output Total 850 1800 1350 Balance -372 -1800 -1350 Weight 103.4 kg Intake: Oral 478 Output: Urine 850 1800 1350 Other: Voiding Method External Catheter External Catheter # Bowel Movements 3 1 ABP, PAP, CO, CI - Last Documented Arterial Blood Pressure 151/81 - Exam GENERAL EXAM: Alert, 52-year-old male, on room air, resting in bed,, in no acute distress. HEAD: Normocephalic. EYES: Normal reaction of pupils, equal size. NOSE: Clear with pink turbinates. THROAT: No erythema or exudates. NECK: No masses, no JVD. CHEST: No chest wall deformity. LUNGS: Equal air entry with no crackles, wheeze, rhonchi or dullness. CVS: S1 and S2 normal with no audible murmur, regular rhythm. ABDOMEN: No hepatosplenomegaly, normal bowel sounds, no guarding or rigidity. SPINE: No scoliosis or deformity SKIN: Skin breakdown on the buttocks from continued diarrhea, declines fecal management system. CENTRAL NERVOUS SYSTEM: No focal deficits, tone is normal in all 4 extremities. EXTREMITIES: Left BKA. Scrotal edema. There is no peripheral edema. No clubbing, no cyanosis. Peripheral pulses are intact. - Labs CBC & Chem 7: 10/22/23 04:50 10/22/23 04:50 Labs: Abnormal Lab Results - Last 24 Hours (Table) 10/23/23 10/23/23 10/24/23 Range/Units 17:08 20:43 05:49 POC Glucose (mg/dL) 167 H 287 H 213 H (70-110) mg/dL 10/24/23 Range/Units 12:02 POC Glucose (mg/dL) 137 H (70-110) mg/dL Microbiology - Last 24 Hours (Table) 10/20/23 18:42 Blood Culture - Preliminary Blood Assessment and Plan Assessment: Acute C. difficile colitis, completed 20 doses of Dificid and completed Flagyl. He had been initiated on Bismatrol. The patient had another 8 bowel movements throughout the night. Abdominal x-ray revealed a nonspecific bowel gas pattern without evidence of an acute process. Fecal material and gas are demonstrated throughout the colon and rectum. No evidence of pneumoperitoneum. Follow-up C. difficile screen was still positive on 10/20/2023. Patient is back on oral vanco mycin Sepsis/hypotension, secondary to severe diarrhea, from C. difficile colitis, recovered Acute mental status changes, likely on the basis of septic encephalopathy, recovered None anion gap metabolic acidosis, recovered Coffee-ground emesis x 2 and the patient, post EGD that revealed gastritis Acute leukocytosis, secondary to C. difficile colitis, improved and down to 10.6 Acute kidney injury, recovered and creatinine 1.0 Diabetes mellitus Recent left BKA, September 03, 2023 History of hypertension. History of hyperlipidemia. Nonhealing ulcer, left lower extremity, with subsequent left BKA Prior history of methicillin-resistant Staph aureus infection, and Proteus mirabilis bacteremia and the patient completed a course of Rocephin and vancomycin on outpatient basis at the [facility] Large anterior abdominal wall hernia Scrotal edema, being evaluated by urology Excoriation of the buttocks due to diarrhea. Patient has declined fecal management system Plan: The patient was seen and evaluated Remains stable and on room air Medications reviewed On oral vancomycin and Questran Plan is to return to [facility] will see the patient as needed I have personally seen and examined the patient, performed the documentation and the assessment and plan as written. Number of minutes spent on the visit: 10.
[2023-10-24] MEDS: HYDROcodone/APAP 7.5-325MG 1 EACH TAB PO PRN (15:40)
--- NOTE | 2023-10-24 16:29 | P.PN ---
Subjective Progress Note Date: 10/24/23 Principal diagnosis: Reason for follow-up is C. 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 difficile colitis. On today's evaluation that is 10/24/2023,the patient remains to be afebrile, patient is on room air not requiring supplemental oxygen and denies any danny rtness of breath no chest pain or cough.Patient denies having any nausea or vomiting, no abdominal pain patient did have 1 bowel movement this morning which was slightly formed and no bowel movement last night No new lab has been repeated today repeat blood and urine culture have been negative Objective - Vital Signs Vital signs: Vital Signs Temp 97.9 F 10/24/23 07:09 Pulse 76 10/24/23 07:09 Resp 17 10/24/23 07:09 BP 130/76 10/24/23 07:09 Pulse Ox 96 10/24/23 07:09 FiO2 21 10/17/23 08:51 Intake & Output 10/23/23 10/24/23 10/24/23 18:59 06:59 18:59 Intake Total 478 Output Total 850 1800 1350 Balance -372 -1800 -1350 Weight 103.4 kg Intake: Oral 478 Output: Urine 850 1800 1350 Other: Voiding Method External Catheter External Catheter # Bowel Movements 3 1 ABP, PAP, CO, CI - Last Documented Arterial Blood Pressure 151/81 - Exam Middle-age male lying in bed in no distress Respiratory system unlabored breathing decreased breath sound the base Heart S1-S2 regular Abdominal soft no tenderness Extremities left BKA stump wound is currently dressed no drainage - Labs CBC & Chem 7: 10/22/23 04:50 10/22/23 04:50 Labs: Abnormal Lab Results - Last 24 Hours (Table) 10/23/23 10/23/23 10/24/23 Range/Units 17:08 20:43 05:49 POC Glucose (mg/dL) 167 H 287 H 213 H (70-110) mg/dL Microbiology - Last 24 Hours (Table) 10/20/23 18:42 Blood Culture - Preliminary Blood Assessment and Plan (1) Leukocytosis Current Visit: Yes Status: Acute Code(s): D72.829 - ELEVATED WHITE BLOOD CELL COUNT, UNSPECIFIED SNOMED Code(s): 095545139 (2) C. difficile colitis Current Visit: Yes Status: Acute Code(s): A04.72 - ENTEROCOLITIS D/T CLOSTRIDIUM DIFFICILE, NOT SPCF RECUR SNOMED Code(s): 055052135 Plan: 1-patient did have a new fever could be related to his Domínguez catheter, Domínguez catheter has been discontinued urine is mildly positive and blood as well as a repeat urine culture so far negative repeat stool for C. difficile came back positive 2-patient did have improvement in diarrhea and resolution of fever plan is to continue with oral vancomycin to finish a 10 days course of therapy along with Questran and Pepto-Bismol Dictation was produced using [employer] dictation software. please excuse any grammatical, word or spelling errors. Time with Patient: Less than 30
--- NOTE | 2023-10-24 16:46 | P.PN ---
Subjective patient is seen for follow-up for acute kidney injury. Being treated for C. difficile colitis. Diarrhea has improved. No significant complaints today. Maintained on Lasix, decreased to 20 mg daily. Serum creatinine 0.9 on 10/22/2023. Objective - Vital Signs Vital signs: Vital Signs Temp 98.3 F 10/24/23 14:12 Pulse 77 10/24/23 14:12 Resp 17 10/24/23 14:12 BP 149/83 10/24/23 14:12 Pulse Ox 94 L 10/24/23 14:12 FiO2 21 10/17/23 08:51 Intake & Output 10/23/23 10/24/23 10/24/23 18:59 06:59 18:59 Intake Total 478 Output Total 850 1800 1350 Balance -372 -1800 -1350 Weight 103.4 kg Intake: Oral 478 Output: Urine 850 1800 1350 Other: Voiding Method External Catheter External Catheter # Bowel Movements 3 1 ABP, PAP, CO, CI - Last Documented Arterial Blood Pressure 151/81 - Exam patient is awake. Alert oriented x 3 abdomen is soft nontender Alert oriented 3. Examination lower extremities shows no edema, left BKA - Labs CBC & Chem 7: 10/22/23 04:50 10/22/23 04:50 Labs: Abnormal Lab Results - Last 24 Hours (Table) 10/23/23 10/23/23 10/24/23 Range/Units 17:08 20:43 05:49 POC Glucose (mg/dL) 167 H 287 H 213 H (70-110) mg/dL 10/24/23 Range/Units 12:02 POC Glucose (mg/dL) 137 H (70-110) mg/dL Microbiology - Last 24 Hours (Table) 10/20/23 18:42 Blood Culture - Preliminary Blood Assessment and Plan Assessment: 1. Acute kidney injury secondary to ATN secondary to hypotension and hypovolemia. Creatinine 4.38 dated October 01, 2023. It is now at 1.0 Baseline creatinine near 1. No hydronephrosis noted on CT. Restarted on Lasix due to lower extremity edema. now improved. 2. C. difficile colitis maintained on oral vancomycin. 3. Metabolic acidosis secondary to acute kidney injury and GI losses. 4. Septic shock, s/p Levophed. improved. Plan: continue with decreased dose of oral Lasix. Continue to monitor renal function periodically.
[2023-10-24 17:12] LABS: Glucose,Whole Blood 228 mg/dL (70-110)
[2023-10-24 20:18] LABS: Glucose,Whole Blood 278 mg/dL (70-110)
[2023-10-24] MEDS: ACETAMINOPHEN TAB 325 MG TAB PO PRN (20:25)
--- NOTE | 2023-10-24 21:31 | DS ---
DISCHARGE SUMMARY DISCHARGE DIAGNOSES: 1. C diff colitis, diarrhea. 2. Diastolic heart failure. 3. Severe protein-calorie malnutrition, anasarca type changes. 4. Leukocytosis. 5. Scrotal edema. 6. Chronic neuropathy. 7. COPD. 8. Insulin-dependent diabetes mellitus. 9. Surgical wound, recent AKA of the left leg. HOME MEDICATIONS: 1. Debrox otic 5 drops left ear b.i.d. 2. Potassium chloride 10 mEq daily. 3. Lasix 20 daily. 4. Lipitor 10 daily. 5. Carlock 7.5 every 6 p.r.n. 6. Santyl ointment topically daily. 7. Bismatrol 524 mg a.c. h.s. 8. Carafate 1 g a.c. b.i.d. 9. Levemir 30 units daily. 10.Mycostatin topical b.i.d. 11.NovoLog 5 mg a.c. h.s. sliding scale. 12.Levemir 30 units daily. 13.Montelukast 10 mg daily. 14.Cholestyramine 4 mg b.i.d. for chronic diarrhea. 15.Sodium bicarb 650 t.i.d. 16.Tums 1000 t.i.d. 17.Acetaminophen p.r.n. 18.Lyrica 200 t.i.d. 19.Multivitamin daily. 20.Flomax 0.4 mg daily. 21.Xanax 0.25 q.6h p.r.n. anxiety. 22.Imodium p.r.n. 23.DuoNeb q.i.d. 24.Famotidine 20 mg daily. 25.Metoprolol tartrate 25 b.i.d. 26.Vitamin D 50,000 units weekly. 27.Zofran 4 mg q.8. 28.Iron sulfate daily. CONDITION: Stable. PROGNOSIS: Guarded. ACTIVITY: Ambulate as tolerated. HOSPITAL COURSE: This white male came in with severe anasarca type changes due to severe protein-calorie malnutrition due to severe C diff colitis. Multiple days in hospital due to C diff colitis, dehydration, CHF type changes. He slowly improved after 10 days of C diff Dificid treatment. His stools have slowed down in the last 2 days. He is going to go on Questran p.r.n. for diarrhea for the C diff and if he continues with C diff as an outpatient, he will either need to get a stool transplant down at [facility] as an outpatient or he could start vancomycin 125 q.i.d. for [address] Mendez. See how he does up in the correction. Follow up with Dr. Hooper at the correction. Insulin for diabetes. Make sure he is on his breathing treatments for COPD. Prognosis guarded. Diet as tolerated. Ambulate as tolerated. 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 Says he is able to walk with that leg. He should go home after couple weeks after learning how to walk on his left leg. Prognosis guarded. Condition stable. Please see further orders. MMODL / IJN: [id number] /
[2023-10-25 05:50] LABS: Glucose,Whole Blood 206 mg/dL (70-110)
[2023-10-25 09:23] LABS: Basophils # (A) 0.06 X 10*3/uL (0.00-0.10); Basophils % (A) 0.7 %; Eosinophils # (A) 0.26 X 10*3/uL (0.04-0.35); Eosinophils % (A) 3.2 %; HCT 31.7 % (39.6-50.0); HGB 9.6 g/dL (13.0-17.0); Lymphocytes # (A) 1.39 X 10*3/uL (0.90-5.00); Lymphocytes % (A) 17.3 %; MCH 30.3 pg (27.0-32.0); MCHC 30.3 g/dL (32.0-37.0); Mean Platelet Volume 9.5 FL (9.5-12.2); Monocytes # (A) 0.87 X 10*3/uL (0.20-1.00); Monocytes % (A) 10.8 %; NRBC Per 100 WBC 0 X 10*3/uL (0.00-0.01); Neutrophils # (A) 5.39 X 10*3/uL (1.80-7.70); Neutrophils % (A) 67.1 %; Platelet Count 261 X 10*3/uL (140-440); RBC 3.17 X 10*6/uL (4.40-5.60); RDW 16.4 % (11.5-14.5); WBC 8.04 X 10*3/uL (4.50-10.00)
[2023-10-25 09:56] LABS: ALT 25 U/L (10-49); AST 21 U/L (14-35); Albumin 3.5 g/dL (3.8-4.9); Albumin/Globulin Ratio 1.13 Ratio (1.60-3.17); Alkaline Phosphatase 111 U/L (41-126); BUN/Creat Ratio 34.55 Ratio (12.00-20.00); Calcium 9.6 mg/dL (8.7-10.3); Carbon Dioxide 25.3 mmol/L (21.6-31.8); Chloride 103 mmol/L (96-109); Globulin 3.1 g/dL (1.6-3.3); Glucose 188 mg/dL (70-110); Potassium 5.2 mmol/L (3.5-5.5); Sodium 139 mmol/L (135-145); Total Bilirubin <0.2 mg/dL (0.3-1.2); Total Protein 6.6 g/dL (6.2-8.2)
--- NOTE | 2023-10-25 10:24 | PN ---
PROGRESS NOTE DATE OF SERVICE: 10/24/2023 SUBJECTIVE: This is a 52-year-old white male. His breathing is improved, physical therapy. He will need to go to rehab center, try to get his rehab center set up. Possibly go home soon. Discharge summary dictated. Please see discharge summary. MMODL / IJN: [id number] /
--- NOTE | 2023-10-25 10:24 | P.PN ---
Subjective Patient is seen in follow-up for acute kidney injury. Renal function at baseline. No diarrhea today. No vomiting. Oral intake fair. On oral Lasix. Vital signs are stable. General: No acute distress. HEENT: Head exam is unremarkable. LUNGS: No audible rhonchi or wheezes. HEART: Rate and Rhythm are regular. ABDOMEN: Nontender. EXTREMITITES: Trace edema. Left BKA noted. Objective - Vital Signs Vital signs: Vital Signs Temp 97.9 F 10/25/23 07:17 Pulse 72 10/25/23 07:17 Resp 16 10/25/23 07:17 BP 125/74 10/25/23 07:17 Pulse Ox 96 10/25/23 07:17 FiO2 21 10/17/23 08:51 Intake & Output 10/24/23 10/25/23 10/25/23 18:59 06:59 18:59 Output Total 1350 1100 Balance -1350 -1100 Output: Urine 1350 1100 Other: Voiding Method External Catheter # Bowel Movements 1 1 ABP, PAP, CO, CI - Last Documented Arterial Blood Pressure 151/81 - Labs CBC & Chem 7: 10/25/23 06:09 10/25/23 06:09 Labs: Abnormal Lab Results - Last 24 Hours (Table) 10/24/23 10/24/23 10/24/23 Range/Units 12:02 17:10 20:17 RBC (4.40-5.60) X 10*6/uL Hgb (13.0-17.0) g/dL Hct (39.6-50.0) % MCV (80.0-97.0) FL MCHC (32.0-37.0) g/dL RDW (11.5-14.5) % Immature Gran # (0.00-0.04) X 10*3/uL BUN (9.0-27.0) mg/dL BUN/Creatinine Ratio (12.00-20.00) Ratio Glucose (70-110) mg/dL POC Glucose (mg/dL) 137 H 228 H 278 H (70-110) mg/dL Total Bilirubin (0.3-1.2) mg/dL Albumin (3.8-4.9) g/dL Albumin/Globulin Ratio (1.60-3.17) Ratio 10/25/23 10/25/23 10/25/23 Range/Units 05:49 06:09 06:09 RBC 3.17 L (4.40-5.60) X 10*6/uL Hgb 9.6 L (13.0-17.0) g/dL Hct 31.7 L (39.6-50.0) % MCV 100.0 H (80.0-97.0) FL MCHC 30.3 L (32.0-37.0) g/dL RDW 16.4 H (11.5-14.5) % Immature Gran # 0.07 H (0.00-0.04) X 10*3/uL BUN 38.0 H (9.0-27.0) mg/dL BUN/Creatinine Ratio 34.55 H (12.00-20.00) Ratio Glucose 188 H (70-110) mg/dL POC Glucose (mg/dL) 206 H (70-110) mg/dL Total Bilirubin <0.2 L (0.3-1.2) mg/dL Albumin 3.5 L (3.8-4.9) g/dL Albumin/Globulin Ratio 1.13 L (1.60-3.17) Ratio Assessment and Plan Plan: Assessment: 1. Acute kidney injury secondary to ATN secondary to hypotension and hypovolemia. Creatinine 4.38 dated October 01, 2023 and now near baseline. No hydronephrosis noted on CT. UA fairly benign. 2. C. difficile colitis maintained on oral vancomycin. Also on Questran. 3. Metabolic acidosis secondary to acute kidney injury and GI losses. On oral bicarb. Improved. 4. Septic shock. Now off vasopressors. 5. Lower extremity edema maintained on oral Lasix. Plan: Encouraged oral intake. Avoid nephrotoxins. Continue to monitor renal function and urine output.
[2023-10-25 11:36] LABS: Glucose,Whole Blood 169 mg/dL (70-110)
--- NOTE | 2023-10-25 15:21 | P.PN ---
Subjective Progress Note Date: 10/25/23 Principal diagnosis: Reason for follow-up is C. 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 difficile colitis. On today's evaluation that is 10/25/2023, the patient continues to be afebrile, the patient is on room air and breathing comfortably, the Pt denies having any chest pain or cough, the patient denies having any abdominal pain no vomiting and diarrhea has slowed down mention feeling better. Patient white count is 8.04, creatinine is 1.1 Objective - Vital Signs Vital signs: Vital Signs Temp 98.2 F 10/25/23 14:48 Pulse 84 10/25/23 14:48 Resp 17 10/25/23 14:48 BP 116/69 10/25/23 14:48 Pulse Ox 97 10/25/23 14:48 FiO2 21 10/17/23 08:51 Intake & Output 10/24/23 10/25/23 10/25/23 18:59 06:59 18:59 Output Total 1350 1100 800 Balance -1350 -1100 -800 Output: Urine 1350 1100 800 Other: Voiding Method External Catheter External Catheter # Voids 1 # Bowel Movements 1 1 1 ABP, PAP, CO, CI - Last Documented Arterial Blood Pressure 151/81 - Exam Middle-age male lying in bed in no distress Respiratory system unlabored breathing decreased breath sound the base Heart S1-S2 regular Abdominal soft no tenderness Extremities left BKA stump wound is currently dressed no drainage - Labs CBC & Chem 7: 10/25/23 06:09 10/25/23 06:09 Labs: Abnormal Lab Results - Last 24 Hours (Table) 10/24/23 10/24/23 10/25/23 Range/Units 17:10 20:17 05:49 RBC (4.40-5.60) X 10*6/uL Hgb (13.0-17.0) g/dL Hct (39.6-50.0) % MCV (80.0-97.0) FL MCHC (32.0-37.0) g/dL RDW (11.5-14.5) % Immature Gran # (0.00-0.04) X 10*3/uL BUN (9.0-27.0) mg/dL BUN/Creatinine Ratio (12.00-20.00) Ratio Glucose (70-110) mg/dL POC Glucose (mg/dL) 228 H 278 H 206 H (70-110) mg/dL Total Bilirubin (0.3-1.2) mg/dL Albumin (3.8-4.9) g/dL Albumin/Globulin Ratio (1.60-3.17) Ratio 10/25/23 10/25/23 10/25/23 Range/Units 06:09 06:09 11:35 RBC 3.17 L (4.40-5.60) X 10*6/uL Hgb 9.6 L (13.0-17.0) g/dL Hct 31.7 L (39.6-50.0) % MCV 100.0 H (80.0-97.0) FL MCHC 30.3 L (32.0-37.0) g/dL RDW 16.4 H (11.5-14.5) % Immature Gran # 0.07 H (0.00-0.04) X 10*3/uL BUN 38.0 H (9.0-27.0) mg/dL BUN/Creatinine Ratio 34.55 H (12.00-20.00) Ratio Glucose 188 H (70-110) mg/dL POC Glucose (mg/dL) 169 H (70-110) mg/dL Total Bilirubin <0.2 L (0.3-1.2) mg/dL Albumin 3.5 L (3.8-4.9) g/dL Albumin/Globulin Ratio 1.13 L (1.60-3.17) Ratio Assessment and Plan (1) Leukocytosis Current Visit: Yes Status: Acute Code(s): D72.829 - ELEVATED WHITE BLOOD CELL COUNT, UNSPECIFIED SNOMED Code(s): 290116606 (2) C. difficile colitis Current Visit: Yes Status: Acute Code(s): A04.72 - ENTEROCOLITIS D/T CLOSTRIDIUM DIFFICILE, NOT SPCF RECUR SNOMED Code(s): 670497452 Plan: 1-patient did have a new fever could be related to his Domínguez catheter, Domínguez catheter has been discontinued urine is mildly positive and blood as well as a repeat urine culture so far negative repeat stool for C. difficile came back p ositive 2-patient did have improvement in diarrhea and resolution of fever and the patient white count has normalized currently on vancomycin Questran and Pepto- Bismol to continue Dictation was produced using [employer] dictation software. please excuse any grammatical, word or spelling errors. Time with Patient: Less than 30
[2023-10-25 16:43] LABS: Glucose,Whole Blood 254 mg/dL (70-110)
[2023-10-25 19:38] LABS: Glucose,Whole Blood 224 mg/dL (70-110)
[2023-10-26 06:14] LABS: Glucose,Whole Blood 118 mg/dL (70-110)
--- NOTE | 2023-10-26 10:44 | P.PN ---
Subjective Patient is seen in follow-up for acute kidney injury. Renal function at baseline. Oral intake is good. On oral Lasix. Hemodynamically stable. Vital signs are stable. General: No acute distress. HEENT: Head exam is unremarkable. LUNGS: No audible rhonchi or wheezes. HEART: Rate and Rhythm are regular. ABDOMEN: Nontender. EXTREMITITES: Trace edema. Left BKA noted. Objective - Vital Signs Vital signs: Vital Signs Temp 97.4 F L 10/26/23 08:00 Pulse 76 10/26/23 08:00 Resp 18 10/26/23 08:00 BP 127/79 10/26/23 08:00 Pulse Ox 97 10/26/23 08:00 FiO2 21 10/17/23 08:51 Intake & Output 10/25/23 10/26/23 10/26/23 18:59 06:59 18:59 Output Total 800 500 Balance -800 -500 Output: Urine 800 500 Other: Voiding Method External Catheter External Catheter # Voids 1 2 # Bowel Movements 1 ABP, PAP, CO, CI - Last Documented Arterial Blood Pressure 151/81 - Labs CBC & Chem 7: 10/25/23 06:09 10/25/23 06:09 Labs: Abnormal Lab Results - Last 24 Hours (Table) 10/25/23 10/25/23 10/25/23 Range/Units 11:35 16:42 19:37 POC Glucose (mg/dL) 169 H 254 H 224 H (70-110) mg/dL 10/26/23 Range/Units 06:13 POC Glucose (mg/dL) 118 H (70-110) mg/dL Microbiology - Last 24 Hours (Table) 10/20/23 18:42 Blood Culture - Final Blood Assessment and Plan Plan: Assessment: 1. Acute kidney injury secondary to ATN secondary to hypotension and hypovolemia. Creatinine 4.38 dated October 01, 2023 and now near baseline. No hydronephrosis noted on CT. UA fairly benign. 2. C. difficile colitis maintained on oral vancomycin. Also on Questran. 3. Metabolic acidosis secondary to acute kidney injury and GI losses. On oral bicarb. Improved. 4. Septic shock. Now off vasopressors. 5. Lower extremity edema maintained on oral Lasix. Plan: Encouraged oral intake. Avoid nephrotoxins. Continue to monitor renal function and urine output.
[2023-10-26 11:09] LABS: Glucose,Whole Blood 231 mg/dL (70-110)
--- NOTE | 2023-10-26 16:14 | P.PN ---
Subjective Progress Note Date: 10/26/23 Principal diagnosis: Reason for follow-up is C. 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 difficile colitis. On today's evaluation that is 10/26/2023, Patient is afebrile patient is currently on room air and denies having any shortness of breath, the patient de nies any chest pain or cough, the patient denies any nausea vomiting did not have any abdominal pain mention diarrhea has improved did have 1 bowel movement today was unable to tell me if it was loose formed or semiformed. No new diet has been repeated today blood urine culture has been negative Objective - Vital Signs Vital signs: Vital Signs Temp 97.6 F 10/26/23 12:54 Pulse 71 10/26/23 12:54 Resp 18 10/26/23 12:54 BP 123/78 10/26/23 12:54 Pulse Ox 91 L 10/26/23 12:54 FiO2 21 10/17/23 08:51 Intake & Output 10/25/23 10/26/23 10/26/23 18:59 06:59 18:59 Output Total 800 500 Balance -800 -500 Output: Urine 800 500 Other: Voiding Method External Catheter External Catheter # Voids 1 2 # Bowel Movements 1 2 ABP, PAP, CO, CI - Last Documented Arterial Blood Pressure 151/81 - Exam Middle-age male lying in bed in no distress Respiratory system unlabored breathing decreased breath sound the base Heart S1-S2 regular Abdominal soft no tenderness Extremities left BKA stump wound is currently dressed no drainage - Labs CBC & Chem 7: 10/25/23 06:09 10/25/23 06:09 Labs: Abnormal Lab Results - Last 24 Hours (Table) 10/25/23 10/25/23 10/26/23 Range/Units 16:42 19:37 06:13 POC Glucose (mg/dL) 254 H 224 H 118 H (70-110) mg/dL 10/26/23 Range/Units 11:07 POC Glucose (mg/dL) 231 H (70-110) mg/dL Microbiology - Last 24 Hours (Table) 10/20/23 18:42 Blood Culture - Final Blood Assessment and Plan (1) Leukocytosis Current Visit: Yes Status: Acute Code(s): D72.829 - ELEVATED WHITE BLOOD CELL COUNT, UNSPECIFIED SNOMED Code(s): 266097831 (2) C. difficile colitis Current Visit: Yes Status: Acute Code(s): A04.72 - ENTEROCOLITIS D/T CLOSTRIDIUM DIFFICILE, NOT SPCF RECUR SNOMED Code(s): 334332762 Plan: 1-patient did have a new fever could be related to his Domínguez catheter, Domínguez catheter has been discontinued urine is mildly positive and blood as well as a repeat urine culture so far negative repeat stool for C. difficile came back positive 2-patient did have improvement in diarrhea and resolution of fever and the patient white count has normalized, plan is to continue the oral vancomycin for a week on discharge along with Pepto-Bismol and Questran can be discontinued Dictation was produced using [employer] dictation software. please excuse any grammatical, word or spelling errors. Time with Patient: Less than 30
[2023-10-26 16:20] LABS: Glucose,Whole Blood 216 mg/dL (70-110)
[2023-10-26 20:33] LABS: Glucose,Whole Blood 185 mg/dL (70-110)
[2023-10-27 06:05] LABS: Glucose,Whole Blood 122 mg/dL (70-110)
--- NOTE | 2023-10-27 06:33 | PN ---
PROGRESS NOTE SUBJECTIVE: The patient is breathing better. Temp 97.6, O2 91 on room air, blood pressure 120s to 160s over 70s to 80s, respiratory rate 18 to 21. OBJECTIVE: CARDIOVASCULAR: S1, S2. LUNGS: Decreased breath sounds x4. PSYCH: Fair mood and affect. NEUROLOGIC: Alert and oriented x3. His oxygen goes down to 91, currently possibly CAT scan his lungs again, he will need to wear oxygen at this point if this is very low. Prognosis guarded. C Diff colitis. Wait for rehab placement. Sugars have been mid 100s to 200s. Hemoglobin is 9.6, sodium and potassium are 139 and 5.2. Continue current treatment. Prognosis guarded. Please see further orders. MMODL / IJN: [id number] /
[2023-10-27 08:37] LABS: Basophils # (A) 0.07 X 10*3/uL (0.00-0.10); Basophils % (A) 0.8 %; Eosinophils # (A) 0.26 X 10*3/uL (0.04-0.35); HCT 32.9 % (39.6-50.0); HGB 10.1 g/dL (13.0-17.0); Lymphocytes # (A) 1.64 X 10*3/uL (0.90-5.00); Lymphocytes % (A) 19.1 %; MCH 30.8 pg (27.0-32.0); MCHC 30.7 g/dL (32.0-37.0); MCV 100.3 FL (80.0-97.0); Mean Platelet Volume 9.9 FL (9.5-12.2); Monocytes # (A) 0.91 X 10*3/uL (0.20-1.00); Monocytes % (A) 10.6 %; NRBC Per 100 WBC 0 X 10*3/uL (0.00-0.01); Neutrophils # (A) 5.58 X 10*3/uL (1.80-7.70); Neutrophils % (A) 64.9 %; Platelet Count 255 X 10*3/uL (140-440); RBC 3.28 X 10*6/uL (4.40-5.60); RDW 16.8 % (11.5-14.5)
[2023-10-27 09:01] LABS: BUN/Creat Ratio 43.09 Ratio (12.00-20.00); Blood Urea Nitrogen 47.4 mg/dL (9.0-27.0); Carbon Dioxide 25.3 mmol/L (21.6-31.8); Chloride 102 mmol/L (96-109); Glucose 119 mg/dL (70-110); Magnesium 2.2 mg/dL (1.5-2.4); Potassium 4.9 mmol/L (3.5-5.5); Sodium 138 mmol/L (135-145)
[2023-10-27 09:02] LABS: ALT 26 U/L (10-49); AST 19 U/L (14-35); Albumin 3.8 g/dL (3.8-4.9); Albumin/Globulin Ratio 1.23 Ratio (1.60-3.17); Alkaline Phosphatase 111 U/L (41-126); Calcium 9.9 mg/dL (8.7-10.3); Globulin 3.1 g/dL (1.6-3.3); Total Bilirubin <0.2 mg/dL (0.3-1.2); Total Protein 6.9 g/dL (6.2-8.2)
--- NOTE | 2023-10-27 11:15 | P.PN ---
Subjective Patient is seen in follow-up for acute kidney injury. Renal function at baseline. Oral intake is good. On oral Lasix. Hemodynamically stable. No active complaints. Vital signs are stable. General: No acute distress. HEENT: Head exam is unremarkable. LUNGS: No audible rhonchi or wheezes. HEART: Rate and Rhythm are regular. ABDOMEN: Nontender. EXTREMITITES: Trace edema. Left BKA noted. Objective - Vital Signs Vital signs: Vital Signs Temp 97.3 F L 10/27/23 07:10 Pulse 74 10/27/23 10:32 Resp 18 10/27/23 10:32 BP 126/79 10/27/23 07:10 Pulse Ox 92 L 10/27/23 08:42 FiO2 21 10/17/23 08:51 Intake & Output 10/26/23 10/27/23 10/27/23 18:59 06:59 18:59 Output Total 800 2401 2 Balance -800 -2401 -2 Output: Urine 800 2400 Stool 2 Urine/Stool Mix 1 Other: Voiding Method External Catheter # Bowel Movements 2 ABP, PAP, CO, CI - Last Documented Arterial Blood Pressure 151/81 - Labs CBC & Chem 7: 10/27/23 05:17 10/27/23 05:17 Labs: Abnormal Lab Results - Last 24 Hours (Table) 10/26/23 10/26/23 10/27/23 Range/Units 16:18 20:31 05:17 RBC (4.40-5.60) X 10*6/uL Hgb (13.0-17.0) g/dL Hct (39.6-50.0) % MCV (80.0-97.0) FL MCHC (32.0-37.0) g/dL RDW (11.5-14.5) % Immature Gran # (0.00-0.04) X 10*3/uL BUN 47.4 H (9.0-27.0) mg/dL BUN/Creatinine Ratio 43.09 H (12.00-20.00) Ratio Glucose 119 H (70-110) mg/dL POC Glucose (mg/dL) 216 H 185 H (70-110) mg/dL Total Bilirubin <0.2 L (0.3-1.2) mg/dL Albumin/Globulin Ratio 1.23 L (1.60-3.17) Ratio 10/27/23 10/27/23 Range/Units 05:17 06:03 RBC 3.28 L (4.40-5.60) X 10*6/uL Hgb 10.1 L (13.0-17.0) g/dL Hct 32.9 L (39.6-50.0) % MCV 100.3 H (80.0-97.0) FL MCHC 30.7 L (32.0-37.0) g/dL RDW 16.8 H (11.5-14.5) % Immature Gran # 0.14 H (0.00-0.04) X 10*3/uL BUN (9.0-27.0) mg/dL BUN/Creatinine Ratio (12.00-20.00) Ratio Glucose (70-110) mg/dL POC Glucose (mg/dL) 122 H (70-110) mg/dL Total Bilirubin (0.3-1.2) mg/dL Albumin/Globulin Ratio (1.60-3.17) Ratio Assessment and Plan Plan: Assessment: 1. Acute kidney injury secondary to ATN secondary to hypotension and hypovole radha. Creatinine 4.38 dated October 01, 2023 and now near baseline. Creatinine 1.1 today. No hydronephrosis noted on CT. UA fairly benign. 2. C. difficile colitis maintained on oral vancomycin. Also on Questran. 3. Metabolic acidosis secondary to acute kidney injury and GI losses. On oral bicarb. Improved. 4. Septic shock. Now off vasopressors. 5. Lower extremity edema maintained on oral Lasix. Plan: Encouraged oral intake. Avoid nephrotoxins. Continue to monitor renal function and urine output.
[2023-10-27 12:06] LABS: Glucose,Whole Blood 195 mg/dL (70-110)
[2023-10-27 16:48] LABS: Glucose,Whole Blood 236 mg/dL (70-110)
[2023-10-27 21:04] LABS: Glucose,Whole Blood 210 mg/dL (70-110)
--- NOTE | 2023-10-28 00:52 | PN ---
PROGRESS NOTE SUBJECTIVE: I put him on oxygen. He is going to wear it at night. His oxygen levels are low 90s. He has refused breathing treatments. for group home placement. OBJECTIVE: VITAL SIGNS: Blood pressure 114 to 124 over 70s, pulse 76, respiratory rate 16-18, O2 saturation is 90 on room air, put him on 2 L . CARDIOVASCULAR: S1, S2. LUNGS: Transmitted upper sounds. GI: Soft. HEMATOLOGIC: Negative for Homans. ASSESSMENT: Waiting for discharge at this point. 1. Recent Clostridium difficile with leukocytosis. 2. Protein calorie malnutrition. 3. Acute on chronic anemia, improving. 4. Clostridium difficile colitis. PLAN: Continue on oral vancomycin for a week and discharge on Pepto-Bismol can be discontinued. Wait for discharge planning. MMPIETROL / IJN: [id number] /
[2023-10-28 06:04] LABS: Glucose,Whole Blood 185 mg/dL (70-110)
[2023-10-28 08:38] LABS: Basophils # (A) 0.05 X 10*3/uL (0.00-0.10); Basophils % (A) 0.8 %; Eosinophils # (A) 0.22 X 10*3/uL (0.04-0.35); Eosinophils % (A) 3.5 %; HCT 32.9 % (39.6-50.0); HGB 9.9 g/dL (13.0-17.0); Lymphocytes # (A) 1.46 X 10*3/uL (0.90-5.00); Lymphocytes % (A) 23.2 %; MCH 30.6 pg (27.0-32.0); MCHC 30.1 g/dL (32.0-37.0); MCV 101.5 FL (80.0-97.0); Mean Platelet Volume 10.3 FL (9.5-12.2); Monocytes # (A) 0.79 X 10*3/uL (0.20-1.00); Monocytes % (A) 12.6 %; NRBC Per 100 WBC 0 X 10*3/uL (0.00-0.01); Neutrophils # (A) 3.66 X 10*3/uL (1.80-7.70); Neutrophils % (A) 58.2 %; Platelet Count 226 X 10*3/uL (140-440); RBC 3.24 X 10*6/uL (4.40-5.60); RDW 16.9 % (11.5-14.5); WBC 6.29 X 10*3/uL (4.50-10.00)
[2023-10-28 08:56] LABS: ALT 23 U/L (10-49); AST 17 U/L (14-35); Albumin 3.6 g/dL (3.8-4.9); Albumin/Globulin Ratio 1.24 Ratio (1.60-3.17); Alkaline Phosphatase 107 U/L (41-126); BUN/Creat Ratio 44.09 Ratio (12.00-20.00); Blood Urea Nitrogen 48.5 mg/dL (9.0-27.0); Calcium 9.6 mg/dL (8.7-10.3); Carbon Dioxide 26.7 mmol/L (21.6-31.8); Chloride 104 mmol/L (96-109); Globulin 2.9 g/dL (1.6-3.3); Glucose 179 mg/dL (70-110); Potassium 4.7 mmol/L (3.5-5.5); Sodium 140 mmol/L (135-145); Total Bilirubin <0.2 mg/dL (0.3-1.2); Total Protein 6.5 g/dL (6.2-8.2)
--- NOTE | 2023-10-28 10:36 | P.PN ---
Subjective Patient is seen in follow-up for acute kidney injury. Renal function at baseline. Oral intake is good. On oral Lasix. Hemodynamically stable. No active complaints. Vital signs are stable. General: No acute distress. HEENT: Head exam is unremarkable. LUNGS: No audible rhonchi or wheezes. HEART: Rate and Rhythm are regular. ABDOMEN: Nontender. EXTREMITITES: Trace edema. Left BKA noted. Objective - Vital Signs Vital signs: Vital Signs Temp 97.7 F 10/28/23 08:00 Pulse 69 10/28/23 08:00 Resp 15 10/28/23 08:00 BP 120/80 10/28/23 08:00 Pulse Ox 96 10/28/23 07:14 FiO2 21 10/17/23 08:51 Intake & Output 10/27/23 10/28/23 10/28/23 18:59 06:59 18:59 Intake Total 500 Output Total 1602 700 652 Balance -1102 -700 -652 Intake: Oral 500 Output: Urine 1600 700 650 Stool 2 2 Other: Voiding Method External Catheter External Catheter # Bowel Movements 1 ABP, PAP, CO, CI - Last Documented Arterial Blood Pressure 151/81 - Labs CBC & Chem 7: 10/28/23 04:52 10/28/23 04:52 Labs: Abnormal Lab Results - Last 24 Hours (Table) 10/27/23 10/27/23 10/27/23 Range/Units 12:05 16:47 21:02 RBC (4.40-5.60) X 10*6/uL Hgb (13.0-17.0) g/dL Hct (39.6-50.0) % MCV (80.0-97.0) FL MCHC (32.0-37.0) g/dL RDW (11.5-14.5) % Immature Gran # (0.00-0.04) X 10*3/uL BUN (9.0-27.0) mg/dL BUN/Creatinine Ratio (12.00-20.00) Ratio Glucose (70-110) mg/dL POC Glucose (mg/dL) 195 H 236 H 210 H (70-110) mg/dL Total Bilirubin (0.3-1.2) mg/dL Albumin (3.8-4.9) g/dL Albumin/Globulin Ratio (1.60-3.17) Ratio 10/28/23 10/28/23 10/28/23 Range/Units 04:52 04:52 06:03 RBC 3.24 L (4.40-5.60) X 10*6/uL Hgb 9.9 L (13.0-17.0) g/dL Hct 32.9 L (39.6-50.0) % MCV 101.5 H (80.0-97.0) FL MCHC 30.1 L (32.0-37.0) g/dL RDW 16.9 H (11.5-14.5) % Immature Gran # 0.11 H (0.00-0.04) X 10*3/uL BUN 48.5 H (9.0-27.0) mg/dL BUN/Creatinine Ratio 44.09 H (12.00-20.00) Ratio Glucose 179 H (70-110) mg/dL POC Glucose (mg/dL) 185 H (70-110) mg/dL Total Bilirubin <0.2 L (0.3-1.2) mg/dL Albumin 3.6 L (3.8-4.9) g/dL Albumin/Globulin Ratio 1.24 L (1.60-3.17) Ratio Assessment and Plan Plan: Assessment: 1. Acute kidney injury secondary to ATN secondary to hypotension and hypovolemia. Creatinine 4.38 dated October 01, 2023 and now near baseline. Creatinine stable at 1.1 today. No hydronephrosis noted on CT. UA fairly benign. 2. C. difficile colitis maintained on oral vancomycin. Also on Questran. 3. Metabolic acidosis secondary to acute kidney injury and GI losses. On oral bicarb. Improved. 4. Septic shock. Now off vasopressors. 5. Lower extremity edema maintained on oral Lasix. Plan: Encouraged oral intake. Avoid nephrotoxins. Continue to monitor renal function and urine output.
[2023-10-28 11:19] LABS: Glucose,Whole Blood 235 mg/dL (70-110)
[2023-10-28 13:55] VITALS: BP 124/78; PULSE 72; RESP 14; TEMP 97.6
--- NOTE | 2023-10-28 14:07 | PN ---
PROGRESS NOTE SUBJECTIVE: Waiting for rehab placement. Temperature 97.7, pulse 99, respiratory rate 14 to 16, blood pressure 122/80, on 1 L of oxygen, oxygen sat 90s to 80s to need to wear probably long-term for while. He has refused breathing treatments due to mouth pain. His hemoglobin is 9.9, white count 6.29, GFR is 80. Sugars mid 200s to 100s. Albumin is 3.6, which is low, but much better before each year. Wait for rehab placement on the patient to look at a recent amputation due to leg weakness and inability to walk with his current leg. Acute kidney injury secondary to ATN and hypotension and hypokalemia. Creatinine stable at 1.1, much improved. Septic shock, improved. Metabolic acidosis. C diff colitis, improved. Lower extremity edema and hypoalbuminemia, improved. Wait for PT OT placement. Please see further orders. MMODL / IJN: [id number] /
--- NOTE | 2023-10-28 16:05 | P.PN ---
Subjective Progress Note Date: 10/27/23 Principal diagnosis: Reason for follow-up is C. 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 difficile colitis. On today's evaluation that is 10/27/2023, patient has been afebrile, patient is breathing comfortably and is currently on 2 L current oxygen, patient denies having any significant cough no chest pain shortness of breath, patient denies nausea vomiting or abdominal pain and mention 1 bowel movement today. Patient white count is 8.68, creatinine is 1.1 Objective - Vital Signs Vital signs: Vital Signs Temp 97.4 F L 10/27/23 13:51 Pulse 76 10/27/23 13:51 Resp 20 10/27/23 13:51 BP 114/72 10/27/23 13:51 Pulse Ox 90 L 10/27/23 13:51 FiO2 21 10/17/23 08:51 Intake & Output 10/26/23 10/27/23 10/27/23 18:59 06:59 18:59 Intake Total 500 Output Total 800 2401 1602 Balance -800 -2401 -1102 Intake: Oral 500 Output: Urine 800 2400 1600 Stool 2 Urine/Stool Mix 1 Other: Voiding Method External Catheter # Bowel Movements 2 ABP, PAP, CO, CI - Last Documented Arterial Blood Pressure 151/81 - Exam Middle-age male lying in bed in no distress Respiratory system unlabored breathing decreased breath sound the base Heart S1-S2 regular Abdominal soft no tenderness Extremities left BKA stump wound is currently dressed no drainage - Labs CBC & Chem 7: 10/28/23 04:52 10/28/23 04:52 Labs: Abnormal Lab Results - Last 24 Hours (Table) 10/26/23 10/27/23 10/27/23 Range/Units 20:31 05:17 05:17 RBC 3.28 L (4.40-5.60) X 10*6/uL Hgb 10.1 L (13.0-17.0) g/dL Hct 32.9 L (39.6-50.0) % MCV 100.3 H (80.0-97.0) FL MCHC 30.7 L (32.0-37.0) g/dL RDW 16.8 H (11.5-14.5) % Immature Gran # 0.14 H (0.00-0.04) X 10*3/uL BUN 47.4 H (9.0-27.0) mg/dL BUN/Creatinine Ratio 43.09 H (12.00-20.00) Ratio Glucose 119 H (70-110) mg/dL POC Glucose (mg/dL) 185 H (70-110) mg/dL Total Bilirubin <0.2 L (0.3-1.2) mg/dL Albumin/Globulin Ratio 1.23 L (1.60-3.17) Ratio 10/27/23 10/27/23 10/27/23 Range/Units 06:03 12:05 16:47 RBC (4.40-5.60) X 10*6/uL Hgb (13.0-17.0) g/dL Hct (39.6-50.0) % MCV (80.0-97.0) FL MCHC (32.0-37.0) g/dL RDW (11.5-14.5) % Immature Gran # (0.00-0.04) X 10*3/uL BUN (9.0-27.0) mg/dL BUN/Creatinine Ratio (12.00-20.00) Ratio Glucose (70-110) mg/dL POC Glucose (mg/dL) 122 H 195 H 236 H (70-110) mg/dL Total Bilirubin (0.3-1.2) mg/dL Albumin/Globulin Ratio (1.60-3.17) Ratio Assessment and Plan (1) Leukocytosis Current Visit: Yes Status: Acute Code(s): D72.829 - ELEVATED WHITE BLOOD CELL COUNT, UNSPECIFIED SNOMED Code(s): 442702358 (2) C. difficile colitis Current Visit: Yes Status: Acute Code(s): A04.72 - ENTEROCOLITIS D/T CLOSTRIDIUM DIFFICILE, NOT SPCF RECUR SNOMED Code(s): 189501493 Plan: 1-patient did have a new fever could be related to his Domínguez catheter, Domínguez catheter has been discontinued urine is mildly positive and blood as well as a repeat urine culture so far negative repeat stool for C. difficile came back positive 2-patient did have improvement in diarrhea and resolution of fever and the patient white count has normalized, 3- plan is to continue the oral vancomycin along with Pepto-Bismol and Questran and monitor clinical course closely Dictation was produced using [employer] dictation software. please excuse any grammatical, word or spelling errors. Time with Patient: Less than 30
--- NOTE | 2023-10-28 16:06 | P.PN ---
Subjective Progress Note Date: 10/28/23 Principal diagnosis: Reason for follow-up is C. 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 difficile colitis. On today's evaluation that is 10/28/2023, Patient is afebrile this morning and denies any chills, patient mention breathing comfortably and is currently on 2 L current oxygen patient denies any chest pain occasional cough patient denies any abdominal pain no nausea no vomiting, denies any bowel movement today. Patient white count 6.29, creatinine 1.1 Objective - Vital Signs Vital signs: Vital Signs Temp 97.6 F 10/28/23 13:53 Pulse 72 10/28/23 13:53 Resp 14 10/28/23 13:53 BP 124/78 10/28/23 13:53 Pulse Ox 95 10/28/23 13:53 FiO2 21 10/17/23 08:51 Intake & Output 10/27/23 10/28/23 10/28/23 18:59 06:59 18:59 Intake Total 500 Output Total 1602 700 652 Balance -1106 -700 -652 Intake: Oral 500 Output: Urine 1600 700 650 Stool 2 2 Other: Voiding Method External Catheter External Catheter # Bowel Movements 1 ABP, PAP, CO, CI - Last Documented Arterial Blood Pressure 151/81 - Exam Middle-age male lying in bed in no distress Respiratory system unlabored breathing decreased breath sound the base Heart S1-S2 regular Abdominal soft no tenderness Extremities left BKA stump wound is currently dressed no drainage - Labs CBC & Chem 7: 10/28/23 04:52 10/28/23 04:52 Labs: Abnormal Lab Results - Last 24 Hours (Table) 10/27/23 10/27/23 10/28/23 Range/Units 16:47 21:02 04:52 RBC 3.24 L (4.40-5.60) X 10*6/uL Hgb 9.9 L (13.0-17.0) g/dL Hct 32.9 L (39.6-50.0) % MCV 101.5 H (80.0-97.0) FL MCHC 30.1 L (32.0-37.0) g/dL RDW 16.9 H (11.5-14.5) % Immature Gran # 0.11 H (0.00-0.04) X 10*3/uL BUN (9.0-27.0) mg/dL BUN/Creatinine Ratio (12.00-20.00) Ratio Glucose (70-110) mg/dL POC Glucose (mg/dL) 236 H 210 H (70-110) mg/dL Total Bilirubin (0.3-1.2) mg/dL Albumin (3.8-4.9) g/dL Albumin/Globulin Ratio (1.60-3.17) Ratio 10/28/23 10/28/23 10/28/23 Range/Units 04:52 06:03 11:18 RBC (4.40-5.60) X 10*6/uL Hgb (13.0-17.0) g/dL Hct (39.6-50.0) % MCV (80.0-97.0) FL MCHC (32.0-37.0) g/dL RDW (11.5-14.5) % Immature Gran # (0.00-0.04) X 10*3/uL BUN 48.5 H (9.0-27.0) mg/dL BUN/Creatinine Ratio 44.09 H (12.00-20.00) Ratio Glucose 179 H (70-110) mg/dL POC Glucose (mg/dL) 185 H 235 H (70-110) mg/dL Total Bilirubin <0.2 L (0.3-1.2) mg/dL Albumin 3.6 L (3.8-4.9) g/dL Albumin/Globulin Ratio 1.24 L (1.60-3.17) Ratio Assessment and Plan (1) Leukocytosis Current Visit: Yes Status: Acute Code(s): D72.829 - ELEVATED WHITE BLOOD CELL COUNT, UNSPECIFIED SNOMED Code(s): 366978604 (2) C. difficile colitis Current Visit: Yes Status: Acute Code(s): A04.72 - ENTEROCOLITIS D/T CLOSTRI DIUM DIFFICILE, NOT SPCF RECUR SNOMED Code(s): 378103237 Plan: 1-patient did have a new fever could be related to his Domínguez catheter, Domínguez catheter has been discontinued urine is mildly positive and blood as well as a repeat urine culture so far negative repeat stool for C. difficile came back positive 2-patient did have improvement in diarrhea and resolution of fever and the patient white count has normalized, 3- plan is to continue the oral vancomycin to finish a 2-week course of therapy total along with Pepto-Bismol and Questran as needed Dictation was produced using [employer] dictation software. please excuse any grammatical, word or spelling errors. Time with Patient: Less than 30
[2023-10-28 16:45] LABS: Glucose,Whole Blood 273 mg/dL (70-110)
--- NOTE | 2023-10-29 17:04 | CDI ---
Documentation Clarification Form Date: 10/29/2023 04:47:57 PM From: Na Smallwood Phone: Admit Date: 10/04/2023 05:23:00 PM Patient Name: Devon Romero Visit Number: [id number] Discharge Date: 10/28/2023 05:37:00 PM ATTENTION: The Clinical Documentation Specialists (CDI) and [facility] Coding Staff appreciate your assistance in clarifying documentation. Please respond to the clarification below the line at the bottom and electronically sign. The CDI & [facility] Coding staff will review the response and follow-up if needed. Please note: Queries are made part of the Legal Health Record. If you have any questions, please contact the author of this message via ITS. Dr. [place] Ho[place] Your patient has an abnormal lab value: Hemoglobin A1C 7.8. Please clarify if there is an additional diagnosis and/or clinical significance related to this value. History/Risk Factors: 52yo M, HTN, dehydration, C difficile colitis, severesepsis with shock,septic encephalopathy, anion gapmetabolic acidosis, ATN, recent LBKA, DMII w neuropathy, COPD, HX MRSA, VRE Clinical indicators: Glucose: 10/04 84-192 10/05 192-383 Treatment: currently on Levemir Insulin 30 units at bedtime and 10 units in the morning along with NovoLog 5 units with meals andslidingscale coverage. Home Medications: sitagliptin [Januvia] 100 mg PO Daily; Sevelamer [Renvela] 800 mg PO w dinner; Insulin Aspart (Novolog) 15 unit SQ AC-TID (formulary)]; Insulin Detemir [Levemir Flexpen] 10 unit SQ DAILY& 30 units SQ HS Is there an additional diagnosis and/or clinical significance related to the above lab result/information? [ ] Diabetes mellitus Type II with hyperglycemia [ ] No additional diagnosis/Not clinically significant [ ] Other, please specify [ ] Unable to determine (Template Last Revised: May 2020) MTDD
--- NOTE | 2023-11-06 13:31 | PN ---
PROGRESS NOTE Diabetes mellitus type 2 with hyperglycemia. MMODL / IJN: [id number] /
== END 2023-10-28 17:37 | DRG 720 ==
LOC: EC 14:10 → 3SCARD 17:23 → 2SICU 17:50 → 3SCARD 10-08 21:13 → 4SSUR 10-10 21:50
PROVIDERS: ADMIT Family Medicine; ATTEND Family Medicine
PROC: 3E033XZ Introduction of Vasopressor into Peripheral Vein, Percutaneous Approach (ICD-10-PCS; 2023-10-05)
PROC: 0DB78ZX Excision of Stomach, Pylorus, Via Natural or Artificial Opening Endoscopic, Diagnostic (ICD-10-PCS; principal; 2023-10-06 08:05)
PROC: 8E0ZXY6 Isolation (ICD-10-PCS; 2023-10-13)
DX: A41.4 Sepsis due to anaerobes (principal); N17.0 Acute kidney failure with tubular necrosis; R65.21 Severe sepsis with septic shock; E43 Unspecified severe protein-calorie malnutrition; A04.72 Enterocolitis due to Clostridium difficile, not specified as recurrent; E11.40 Type 2 diabetes mellitus with diabetic neuropathy, unspecified; I11.0 Hypertensive heart disease with heart failure; I50.32 Chronic diastolic (congestive) heart failure; E11.51 Type 2 diabetes mellitus with diabetic peripheral angiopathy without gangrene; J44.9 Chronic obstructive pulmonary disease, unspecified; E11.65 Type 2 diabetes mellitus with hyperglycemia; Z89.512 Acquired absence of left leg below knee; Z79.4 Long term (current) use of insulin; G93.41 Metabolic encephalopathy; T81.31XA Disruption of external operation (surgical) wound, not elsewhere classified, initial encounter; R18.8 Other ascites; D62 Acute posthemorrhagic anemia; E88.09 Other disorders of plasma-protein metabolism, not elsewhere classified; Z68.31 Body mass index [BMI] 31.0-31.9, adult; K31.89 Other diseases of stomach and duodenum; K29.70 Gastritis, unspecified, without bleeding; E78.5 Hyperlipidemia, unspecified; D72.823 Leukemoid reaction; E86.0 Dehydration; N50.89 Other specified disorders of the male genital organs; S90.811A Abrasion, right foot, initial encounter; E86.1 Hypovolemia; E87.6 Hypokalemia; D64.89 Other specified anemias; K43.9 Ventral hernia without obstruction or gangrene; Z79.84 Long term (current) use of oral hypoglycemic drugs; Z87.39 Personal history of other diseases of the musculoskeletal system and connective tissue; Z79.899 Other long term (current) drug therapy; Z86.14 Personal history of Methicillin resistant Staphylococcus aureus infection; Z86.19 Personal history of other infectious and parasitic diseases; Z87.891 Personal history of nicotine dependence; Z75.1 Person awaiting admission to adequate facility elsewhere
CPT/HCPCS: 36415; 43239; 70450; 71045; 74019; 74176; 76705; 80048; 80053; 81001; 81003; 82271; 83036; 83605; 83735; 84145; 84484; 85025; 85027; 85610; 85730; 86140; 87040; 87086; 87324; 88305; 93005; 94760; 96361; 96365; 96366; 96367; 96375; 99291